=== PATIENT | female | born 1970 | race Caucasian/White ===

== ENCOUNTER 2019-12-27 09:46 | Emergency (ER) | payer MEDICAID ==
--- OUTSIDE RECORDS SUMMARY | 2019-12-27 09:49 | XMS REPORT | Summary of Care ---
:1970 Author Organization [facility] Address [address] [place] [id number] Care Team Providers Name Role Phone Ming Ward Primary Care Provider Reason for Visit Reason Comments Follow-up rash (Routine) Status Reason Specialty Diagnoses / Referred By Referred To Procedures Contact Contact Authorized Dermatology Diagnoses Disorder of the skin and subcutaneous tissue, unspecified Psoriasis, unspecified Dermatitis, unspecified Tinea corporis Ming Ward Procedures CONSULT/REFERRAL DERMATOLOGY C [address] [place] [address] Encounter Details Date Type Department Care Team Description 06/18/2019 Office Visit [facility] Irving Garza MD [address] [place] [address] [id number] [place] [address] Tinea corporis (Primary Dx); Dermatology- Tiff Joyner MD [address] [place] [address] [place] [id number] Psoriasis [place] Sarah Glynn MD [address] [place] [address] [address] [facility] [address] [facility], 5th [place] [address] Allergies Active Allergy Reactions Severity Noted Date Comments Hai Lee 09/18/2010 Morphine Hives 04/07/2007 documented as of this encounter (statuses as of 06/24/2019) Medications Medication Sig Dispensed Refills Start Date End Date Status SINGULAIR ORAL None Entered 0 Active PENTASA 500 MG ORAL None Entered 240 1 10/31/2009 Active CPSRIndications: Regional enteritis of small intestine with large intestine FLUoxetine (PROZAC) Take 60 mg by 0 Active 20 mg capsule mouth daily. topiramate (TOPAMAX) Take 50 mg by 0 Active 50 mg tablet mouth 2 (two) times daily. risperiDONE 1 mg TAKE 2 TABLETS BY 2 02/23/2017 Active tablet MOUTH AT BEDTIME MAY MAKE DROWSY HUMIRA PEN 40 mg/0.8 0 07/27/2017 Active mL injection amLODIPine 5 mg 0 07/08/2017 Active tablet atorvastatin 20 mg Take 20 mg by 1 07/10/2017 Active tablet mouth daily. albuterol (PROAIR Inhale 2 Puffs 18 g 1 12/07/2017 Active HFA) 90 mcg/actuation every 4 (four) inhalerIndications: hours as needed Mild asthma with for Wheezing or exacerbation, Shortness of unspecified whether Breath. persistent ketoconazole 2 % Apply to area(s) 120 mL 8 01/06/2018 Active shampoo once daily as needed for Itching. aspirin 81 mg EC Take 81 mg by 0 Active tablet mouth daily. BIOTIN ORAL Take by mouth. 0 Active Cholecalciferol, Take by mouth. 0 Active Vitamin D3, (VITAMIN D3) 2,000 unit tablet [id number] Take by mouth. 0 Active C ORAL fluticasone-vilantero Inhale. 0 Active l (BREO ELLIPTA) 100-25 mcg/dose DsDv gabapentin 100 mg Take 1 capsule by 90 capsule 1 06/05/2019 Active capsule mouth 3 (three) times daily. terbinafine HCl 250 Take 1 tablet by 14 tablet 0 06/18/2019 Active mg tabletIndications: mouth daily. 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 documented as of this encounter (statuses as of 06/24/2019) Resolved Problems Problem Noted Date Resolved Date Injury to nerves 06/06/2007 03/01/2019 Overview: IN ALL LIMBS ICD10 Diagnosis Term Tester [employer] Utility 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 documented as of this encounter Last Filed Vital Signs Not on filedocumented in this encounter Progress Notes Sarah Glynn MD - 06/18/2019 3:30 PM CDT Elizabeth Garcia is a 49 year old female Cc: Rash HPI Elizabeth Garcia is a 49 year old female who presents for evaluation on her trunk, groin, and lower extremities x days. Excruciatingly itchy. She has been using Nystatin/Triamcinolone ointment to the area which she had leftover from the past. It is not helping. Having trouble sleeping at night. Of note, has history of psoriasis and often uses various topical steroids as below prn flares. PMH: Crohn's disease (previously on Remicade and Humira) Histories Past Medical History: Diagnosis Date Bipolar 2 disorder Crohn disease (no) hx of skin cancer Allergies Allergies Allergen Reactions Codeine Hives Morphine Hives Medications Current Outpatient Medications on File Prior to Visit Medication Sig Dispense Refill gabapentin 100 mg capsule Take 1 capsule by mouth 3 (three) times daily. 90 capsule 1 aspirin 81 mg EC tablet Take 81 mg by mouth daily. BIOTIN ORAL Take by mouth. [id number] ORAL Take by mouth. Cholecalciferol, Vitamin D3, (VITAMIN D3) 2,000 unit tablet Take by mouth. fluticasone-vilanterol (BREO ELLIPTA) 100-25 mcg/dose DsDv Inhale. ketoconazole 2 % shampoo Apply to area(s) once daily as needed for Itching. 120 mL 8 albuterol (PROAIR HFA) 90 mcg/actuation inhaler Inhale 2 Puffs every 4 (four ) hours as needed for Wheezing or Shortness of Breath. 18 g 1 amLODIPine 5 mg tablet atorvastatin 20 mg tablet Take 20 mg by mouth daily. 1 HUMIRA PEN 40 mg/0.8 mL injection FLUoxetine (PROZAC) 20 mg capsule Take 60 mg by mouth daily. risperiDONE 1 mg tablet TAKE 2 TABLETS BY MOUTH AT BEDTIME MAY MAKE DROWSY 2 topiramate (TOPAMAX) 50 mg tablet Take 50 mg by mouth 2 (two) times daily. PENTASA 500 MG ORAL CPSR None Entered 240 1 SINGULAIR ORAL None Entered No current facility-administered medications on file prior to visit. Review of Systems Constitutional: (-) pain Integumentary: (+) itching (-) color change (-) growth (+) rash Hematologic/Lymphatic: (-) bleeding Physical Exam There were no vitals taken for this visit. General : No acute distress Psychiatric: Normal affect Pulmonary: Breathing unlabored CHEST: Positive ABDOMEN: Positive BACK: Positive RIGHT ARM: Negative LEFT ARM: Negative BUTTOCKS: Positive GENITALIA: Positive (-)=Negative,(+)=Positive Actinic Keratosis (A): erythematous scaling papules Jewell Hemaniogioma (CH): smooth red and purple papules Dermatitis Erythema (DE): mild to moderate erythema and scaling Dermatitis Lichenified (DL): lichenification and thickening Dermatitis Weeping (DW): weeping and excoriation Inflamed Seborrheic Keratosis (ISK): inflamed warty brown papules and plaques Millium (ML): Small white cystic papule Molluscum Contagiosum (MC): umbilicated papule Nevus Macular (NM): well circumscribed evenly pigmented macule Nevus Papular (RUG BACKING STENCILER): well circumscribed evenly pigmented papule Psoriasis Circumscribed (PC): well circumscribed erythema and scaling Psoriasis Diffuse (PD): diffuse patches of erythema and scaling Seborrheic Keratosis (SK): verrucous brown papules and plaques Scar (SR): cicatricial change Verruca Vulgarus (W): warty hyperkeratotic papule Assessment/Plan 1. Tinea Corporis - AGNES obtained, floridly positive - Stop all topical steroid medications including Nystatin/TAC ointment combo - Given extent of involvement, will treat orally - Start Terbinafine 250 mg daily po x 14 days - Start Lamisil cream (OTC) bid until resolved 2-3. Psoriasis - Etiology and treatment options discussed - Stop all topical medications until follow up or until #1 resolves RTC 6-8 weeks to recheck Sarah Glynn MD [facility] Dermatology, PGY-4 06/18/2019 documented in this encounter Plan of Treatment Date Type Specialty Care Team Description 07/30/2019 Office Visit Dermatology Sarah Glynn MD [address] [place] [phone] Health Maintenance Due Date Last Done Comments PNEUMOCOCCAL 0-64 YEARS COMBINED SERIES (1 of - 1977 PPSV23) DTaP,Tdap,and Td Vaccines (1 - Tdap) 1990 MAMMOGRAM 2011 INFLUENZA VACCINE 07/19/2019 PAP SMEAR Discontinued 05/26/2007 documented as of this encounter Results Not on filedocumented in this encounter Visit Diagnoses Diagnosis Tinea corporis - Primary Dermatophytosis of the body Psoriasis Other psoriasis documented in this encounter Insurance Payer Benefit Plan / Subscriber ID Effective Phone Address Type Group Dates [place] x[facility] [address] [facility]ALTHCARE - [facility] [id number] MANAGED MEDICAID [place], [place]ID [place] (Work) documented as of this encounter
--- OUTSIDE RECORDS SUMMARY | 2019-12-27 09:49 | XMS REPORT | Summary of Care ---
:1970 Author Organization [facility] Address [address] [place] [address] Care Team Providers Name Role Phone Ming Ward Primary Care Provider Reason for Visit Reason Comments Follow-up rash (Routine) Status Reason Specialty Diagnoses / Referred By Referred To Procedures Contact Contact Authorized Dermatology Diagnoses Disorder of the skin and subcutaneous tissue, unspecified Psoriasis, unspecified Dermatitis, unspecified Tinea corporis Ming Ward Procedures CONSULT/REFERRAL DERMATOLOGY C [address] [place] [address] Encounter Details Date Type Department Care Team Description 06/18/2019 Office Visit [facility] Irving Garza MD [address] [place] [address] [id number] [place] [address] Tinea corporis (Primary Dx); Dermatology- Tiff Joyner MD [address] [place] [address] [place] [phone] Psoriasis [place] Sarah Glynn MD [address] [place] [address]. [place] [address] [facility] [address] [facility], 5th [place] [address] Allergies Active Allergy Reactions Severity [...] Vitamin D3, (VITAMIN D3) 2,000 unit tablet [id number] Take by mouth. 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 BIOTIN ORAL Take by mouth. [id number]-[id number]-[id number] ORAL Take by mouth. Cholecalciferol, Vitamin D3, [...] well circumscribed evenly pigmented macule Nevus Papular (BULKING MACHINE OPERATOR): well circumscribed evenly pigmented papule Psoriasis Circumscribed [...] 6-8 weeks to recheck Sarah Glynn MD [facility] Dermatology, PGY-4 06/18/2019 documented in this encounter Plan of Treatment Date Type Specialty Care Team Description 07/30/2019 Office Visit Dermatology Sarah Glynn MD [address] [place] [address] Health Maintenance Due Date Last Done [...] Address Type Group Dates [place]UM[place] [facility] xxxxxxxxx [facility] [address] [facility]CARE - [facility] [id number] MANAGED MEDICAID [place], [place] (Work) documented as of this encounter
--- OUTSIDE RECORDS SUMMARY | 2019-12-27 09:49 | XMS REPORT | Summary of Care ---
:1970 Author Organization [facility] Address [address] [place] [address] Care Team Providers Name Role Phone Ming Ward Primary Care Provider Reason for Referral (Routine) Status Reason Specialty Diagnoses / Referred By Referred To Procedures Contact Contact New Request Rheumatology Diagnoses Other psoriasis Irving Garza, Procedures CONSULT/REFERRAL RHEUMATOLOGY [address] [address] Reason for Visit Reason Comments Follow-up 6-8 week f/u Encounter Details Date Type Department Care Team Description 07/09/2019 Office Visit [facility] Irving Garza MD [address] [address] Other psoriasis (Primary Dx); Dermatology- Sarah Glynn MD [address] [place] [address] Tinea corporis; [place] Other atopic dermatitis [facility] [address] [facility], 5th [place] [address] Allergies Active Allergy Reactions Severity Noted Date Comments Codeine Hives 09/18/2010 Morphine Hives 04/07/2007 documented as of this encounter (statuses as of 07/10/2019) Medications Medication Sig Dispensed Refills Start Date End Date Status SINGULAIR ORAL None Entered 0 Active PENTASA 500 MG ORAL None Entered 240 1 10/31/2009 Active CPSRIndications: Regional enteritis of small intestine with large intestine FLUoxetine (PROZAC) 20 Take 60 mg by 0 Active mg capsule mouth daily. topiramate (TOPAMAX) 50 Take 50 mg by 0 Active mg tablet mouth 2 (two) times daily. risperiDONE 1 mg tablet TAKE 2 TABLETS 2 02/23/2017 Active BY MOUTH AT BEDTIME MAY MAKE DROWSY HUMIRA PEN 40 mg/0.8 mL 0 07/27/2017 Active injection amLODIPine 5 mg tablet 0 07/08/2017 Active atorvastatin 20 mg Take 20 mg by 1 07/10/2017 Active tablet mouth daily. albuterol (PROAIR HFA) Inhale 2 Puffs 18 g 1 12/07/2017 Active 90 mcg/actuation every 4 (four) inhalerIndications: hours as needed Mild asthma with for Wheezing or exacerbation, Shortness of unspecified whether Breath. persistent ketoconazole 2 % Apply to 120 mL 8 01/06/2018 Active shampoo area(s) once daily as needed for Itching. aspirin 81 mg EC tablet Take 81 mg by 0 Active mouth daily. BIOTIN ORAL Take by mouth. 0 Active Cholecalciferol, Take by mouth. 0 Active Vitamin D3, (VITAMIN D3) 2,000 unit tablet [id number] Take by mouth. 0 Active ORAL fluticasone-vilanterol Inhale. 0 Active (BREO ELLIPTA) 100-25 mcg/dose DsDv gabapentin 100 mg Take 1 capsule 90 capsule 1 06/05/2019 Active capsule by mouth 3 (three) times daily. terbinafine HCl 250 mg Take 1 tablet by 14 tablet 0 06/18/2019 Active tabletIndications: mouth daily. Tinea corporis doxycycline 100 mg Take 1 tablet by 20 tablet 0 06/25/2019 Active tabletIndications: mouth 2 (two) Impetiginization of times daily. other dermatoses triamcinolone acetonide Apply to 454 g 1 06/25/2019 Active 0.1 % creamIndications: area(s) 2 (two) Other psoriasis times daily. 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 She was last seen 2 weeks ago. Noted to have a rash on her trunk that was flared and consistent with impetiginized eczema. Started on doxycycline 100 mg bid, domeboro soaks daily-BID, and triamcinolone cream BID. She has been doing this diligently and notes tremendous improvement. She is so happy with how she is doing and reports "she is much less stressed" and "more comfortable." Also of note, on 06/18/2019, she was noted to have tinea corporis on thighs and groin area , with underlying psoriasis that she was using topical steroids for. She has since completed treatment with 14 day course of po lamisil. For her psoriasis, she is just applying triamcinolone. Prefers this over Lidex (fluocinonide) cream. PMH: Crohn's disease (previously on Remicade and Humira) Histories Past Medical History: Diagnosis Date Bipolar 2 disorder Crohn disease (no) hx of skin cancer Allergies Allergies Allergen Reactions Codeine Hives Morphine Hives Medications Current Outpatient Medications on File Prior to Visit Medication Sig Dispense Refill doxycycline 100 mg tablet Take 1 tablet by mouth 2 (two) times daily. 20 tablet 0 triamcinolone acetonide 0.1 % cream Apply to area(s) 2 (two) times daily. 454 g 1 terbinafine HCl 250 mg tablet Take 1 tablet by mouth daily. 14 tablet 0 gabapentin 100 mg capsule Take 1 capsule by mouth 3 (three) times daily. 90 capsule 1 aspirin 81 mg EC tablet Take 81 mg by mouth daily. BIOTIN ORAL Take by mouth. [id number] ORAL Take by mouth. Cholecalciferol, Vitamin D3, [...] distress Psychiatric: Normal affect Pulmonary: Breathing unlabored ABDOMEN: Positive BACK: Negative RIGHT ARM: Negative LEFT ARM: Negative BUTTOCKS: [...] well circumscribed evenly pigmented macule Nevus Papular (POSTAL SORTING OFFICER): well circumscribed evenly pigmented papule Psoriasis Circumscribed (PC): well circumscribed erythema and scaling Psoriasis Diffuse (PD): diffuse patches of erythema and scaling Seborrheic Keratosis (SK): verrucous brown papules and plaques Scar (SR): cicatricial change Verruca Vulgarus (W): warty hyperkeratotic papule Assessment/Plan 1. Inverse Psoriasis 2. Atopic Dermatitis 3. Tinea corporis (resolved today) - S/p 14 days of oral lamisil and lamisil cream - Also s/p 10 day course of Doxycycline - much improved today! Pt is content - On exam today mostly inverse psoriasis under breasts and intergluteal cleft ( improved) and atopic derm on trunk (also improved) - Stop domeboro soaks - Continue triamcinolone cream BID to all affected areas (neck down) - Offer Lidex (fluocinonide) cream for body but patient prefer triamcinolone cream RTC 1 month to recheck then can f/u [id number] Sarah Glynn MD [facility], PGY-4 07/10/2019 documented in this encounter Plan of Treatment Date Type Specialty Care Team Description 07/30/2019 Office Visit Dermatology Sarah Glynn MD [address] [place] [address]. [place] [address] Health Maintenance Due Date Last Done Comments PNEUMOCOCCAL 0-64 YEARS COMBINED SERIES (1 of 1 - 1977 PPSV23) DTaP,Tdap,and Td Vaccines (1 - Tdap) 1990 MAMMOGRAM 2011 INFLUENZA VACCINE (#1) 2019 PAP SMEAR Discontinued 05/26/2007 documented as of this encounter Results Not on filedocumented in this encounter Visit Diagnoses Diagnosis Other psoriasis - Primary Tinea corporis Dermatophytosis of the body Other atopic dermatitis documented in this encounter Insurance Payer Benefit Plan / Subscriber ID Effective Phone Address Type Group Dates BRISSA BRUMFIELD xxxxxxxxx 2014-[employer] [place] Medicaid HEALTHCARE - [facility] [address] MANAGED MEDICAID [place], [place] [phone] [id number] (Work) documented as of this encounter
--- OUTSIDE RECORDS SUMMARY | 2019-12-27 09:49 | XMS REPORT | Summary of Care ---
:1970 Author Organization [facility] Address [address] [place] [address] Care Team Providers Name Role Phone Ming Ward Primary Care Provider Reason for Visit Reason Comments Assessment Encounter Details Date Type Department Care Team Description 06/25/2019 Telephone [facility] Dermatology- Sarah Glynn, Assessment Rafael ZEE [address] [place] [address], [address] [place], [place] [phone] Floor [phone] [place] [phone] Allergies Active Allergy Reactions Severity Noted Date Comments Codeine Hives 09/18/2010 Morphine Hives 04/07/2007 documented as of this encounter (statuses as of 06/25/2019) Medications Medication Sig Dispensed Refills Start Date [...] Vitamin D3, (VITAMIN D3) 2,000 unit tablet [id number] Take by mouth. 0 Active C ORAL fluticasone-vilantero Inhale. 0 Active l (BREO ELLIPTA) 100-25 mcg/dose DsDv gabapentin 100 mg Take 1 capsule by 90 capsule 1 06/05/2019 Active capsule mouth 3 (three) times daily. terbinafine HCl 250 Take 1 tablet by 14 tablet 0 06/18/2019 Active mg tabletIndications: mouth daily. 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 Mold Bonding Machine Operator Utility documented as of this encounter (statuses as of 06/25/2019) Resolved Problems Problem Noted Date Resolved Date Injury to nerves 06/06/2007 03/01/2019 Overview: IN ALL LIMBS ICD10 Diagnosis Term Shell Mold Bonding Machine Operator Utility 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 documented as of this encounter Last Filed Vital Signs Not on filedocumented in this encounter Plan of Treatment Date Type Specialty Care Team Description 06/25/2019 Nurse Visit Dermatology Visit, [facility] Dermatology Nurse 07/30/2019 Office Visit Dermatology Sarah Glynn MD [address] [place] [phone] Health Maintenance Due Date Last Done Comments PNEUMOCOCCAL 0-64 YEARS COMBINED SERIES (1 of 1 - 1977 PPSV23) DTaP,Tdap,and Td Vaccines (1 - Tdap) 1990 MAMMOGRAM 2011 INFLUENZA VACCINE 07/19/2019 PAP SMEAR Discontinued 05/26/2007 documented as of this encounter Results Not on filedocumented in this encounter Insurance Payer Benefit Plan / Subscriber ID Effective Phone Address Type Group Dates BRISSA BRUMFIELD xxxxxxxxx 2014-[employer] [place] Medicaid [place] [id number] MANAGED MEDICAID [place] documented as of this encounter
--- OUTSIDE RECORDS SUMMARY | 2019-12-27 09:49 | XMS REPORT ---
:1970 Author [facility] Address [address] [place] [address] Dr. Paige [address] [place] [address] Care Team Providers Name Role Phone Unavailable Unavailable Unavailable Problems This patient has no known problems. Allergies, Adverse Reactions, Alerts This patient has no known allergies or adverse reactions. Medications This patient has no known medications.
--- OUTSIDE RECORDS SUMMARY | 2019-12-27 09:49 | XMS REPORT | Summary of Care ---
:1970 Author Organization [facility] Address [address] [place] [address] Care Team Providers Name Role Phone Ming Ward Primary Care Provider Reason for Referral (Routine) Status Reason Specialty Diagnoses / Referred By Referred To Procedures Contact Contact New Request Rheumatology Diagnoses Other psoriasis Irving Garza, Procedures CONSULT/REFERRAL RHEUMATOLOGY [address] [address] Reason for Visit Reason Comments Follow-up 6-8 week f/u Encounter Details Date Type Department Care Team Description 07/09/2019 Office Visit [facility] Irving Garza MD [address] [address] Other psoriasis (Primary Dx); Dermatology- Sarah Glynn MD [address] [place] [address] Tinea corporis; [place] Other atopic dermatitis [facility] [address] [facility], 5th [place] [address] Allergies Active Allergy Reactions Severity [...] Vitamin D3, (VITAMIN D3) 2,000 unit tablet [id number] Take by mouth. 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 BIOTIN ORAL Take by mouth. [id number] ORAL Take by mouth. Cholecalciferol, Vitamin D3, [...] well circumscribed evenly pigmented macule Nevus Papular (PULPER): well circumscribed evenly pigmented papule Psoriasis Circumscribed [...] 1 month to recheck then can f/u [id number] Sarah Glynn MD [facility] [[email or web address] Dermatology, PGY-4 07/10/2019 documented in this encounter Plan of Treatment Date Type Specialty Care Team Description 07/30/2019 Office Visit Dermatology Sarah Glynn MD [address] [place] [address]. [place] [address] Health Maintenance Due Date Last [...] [place]UM[place] xxxxxxxxx 2014-Abimael WALLS Medicaid HEALTHCARE - [facility] [address] MANAGED MEDICAID [place], [place]ICAID [place] [phone] (Work) documented as of this encounter
--- OUTSIDE RECORDS SUMMARY | 2019-12-27 09:50 | XMS REPORT | Summary of Care ---
:1970 Author Organization [facility] - [facility] Address [address] [place] [address] Care Team Providers Name Role Phone Ming Ward Skip Primary Care Provider Reason for Visit Reason Comments Skin Problem Encounter Details Date Type Department Care Team Description 06/25/2019 [facility] [address] [place] [phone] Other psoriasis (Primary Dx); Dermatology- Sarah Glynn MD [address] [place] [address]. [place] [address] Impetiginization of other dermatoses; [place] Tinea corporis; [facility] Other atopic dermatitis [address] [facility], 5th [place] [address] Allergies Active Allergy Reactions Severity [...] Vitamin D3, (VITAMIN D3) 2,000 unit tablet [id number] Take by mouth. 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 Last seen one week ago. Patient has ahistory of inverse psoriasis and has been topical steroids in inguinal folds and inframammary folds for months. At her visit one week ago, she was noted to have flared with intense pruritus. AGNES was performed from inguinal area, floridly positive. Given extensive involvement and history of avid topical steroid use, she was treated with po lamisil daily x 14 days and lamisil cream daily. She was also asked to stop ALL topical steroids in light of diagnosis of tinea corporis. Today she presents and has a new rash on her trunk and extremities that is tremendously itchy. She reports she is miserable and having trouble sleeping. She is taking lamisil po as instructed, applying lamisil cream daily to affected areas, and has stopped all topical steroids. No other skin concerns today. PMH: Crohn's disease (previously on Remicade and Humira) Histories Past Medical History: Diagnosis Date Bipolar 2 disorder Crohn disease (no) hx of skin cancer Allergies Allergies Allergen Reactions Codeine Hives Morphine Hives Medications Current Outpatient Medications on File Prior to Visit Medication Sig Dispense Refill terbinafine HCl 250 mg tablet Take 1 tablet by mouth daily. 14 tablet 0 gabapentin 100 mg capsule Take 1 capsule by mouth 3 (three) times daily. 90 capsule 1 aspirin 81 mg EC tablet Take 81 mg by mouth daily. BIOTIN ORAL Take by mouth. [id number] ORAL Take by mouth. Cholecalciferol, Vitamin D3, [...] Pulmonary: Breathing unlabored CHEST: Positive ABDOMEN: Positive GENITALIA: Positive (-)=Negative,(+)=Positive Actinic Keratosis (A): [...] well circumscribed evenly pigmented macule Nevus Papular (GLASS CUTTER HAND): well circumscribed evenly pigmented papule Psoriasis Circumscribed (PC): well circumscribed erythema and scaling Psoriasis Diffuse (PD): diffuse patches of erythema and scaling Seborrheic Keratosis (SK): verrucous brown papules and plaques Scar (SR): cicatricial change Verruca Vulgarus (W): warty hyperkeratotic papule Assessment/Plan 1. Inverse Psoriasis (inguinal folds, intergluteal cleft, inframammary folds) 2. Secondary Impetiginized Atopic Dermatitis (trunk) 3. Tinea Corporis (inguinal folds, thighs) - S/p 7 days of oral lamisil and lamisil cream - Likely was secondarily infected on top of psoriasiswhen evaluated 1 week ago. Since stopping topical steroids last week in setting of tinea, psoriasis appears to be intensely flared today - Discussed etiology and treatment options - Start doxycycline 100 mg PO BID x 10 days, eRx sent. Discussed side effects of medication including GI upset, esophagitis, and photosensitivity. Instructed on use (take medication with food and plenty of water). Counseled patient about sunscreen/sun avoidance/sun protection - Start domeboro soaks BID until next visit to affected areas - hand out provided - Start triamcinolone cream BID to all affected areas (neck down), eRx sent - Continue lamisil tablets po once daily (7 additional days left in course) - Stop lamisil cream Patient seen and examined with Dr. Joyner, who agrees with the plan of care. RTC 1 week to recheck Sarah Glynn MD [facility] Dermatology, PGY-4 06/25/2019 documented in this encounter Plan of Treatment Date Type Specialty Care Team Description 07/30/2019 Office Visit Dermatology Sarah Glynn MD [address] [place] [address]. [place] [address] Health Maintenance Due Date Last Done Comments PNEUMOCOCCAL 0-64 YEARS COMBINED SERIES (1 of 1 - 1977 PPSV23) DTaP,Tdap,and Td Vaccines (1 - Tdap) 1990 MAMMOGRAM 2011 INFLUENZA VACCINE (#1) 2019 PAP SMEAR Discontinued 05/26/2007 documented as of this encounter Results Not on filedocumented in this encounter Visit Diagnoses Diagnosis Other psoriasis - Primary Impetiginization of other dermatoses Tinea corporis Dermatophytosis of the body Other atopic dermatitis documented in this encounter Insurance Payer Benefit Plan / Subscriber ID Effective Phone Address Type Group Dates BRISSA BRUMFIELD xxxxxxxxx 2014-Abimael WALLS Medicaid HEALTHCARE - [facility] [id number] MANAGED MEDICAID [place], [place] [phone] (Work) documented as of this encounter
--- OUTSIDE RECORDS SUMMARY | 2019-12-27 09:50 | XMS REPORT | Summary of Care ---
:1970 Author Organization [facility] Address [address] [place] [address] Care Team Providers Name Role Phone WardMing perez Skip Primary Care Provider Reason for Visit Reason Comments Refill Request Encounter Details Date Type Department Care Team Description 08/04/2019 Refill [facility] Addi Harris MD Refill Request Neurology-[address] [phone] [place] [address] [place] [address] [phone] Allergies Active Allergy Reactions Severity Noted Date Comments Codeine Hives 09/18/2010 Morphine Hives 04/07/2007 documented as of this encounter (statuses as of 08/05/2019) Medications Medication Sig Dispensed Refills Start Date [...] daily. risperiDONE 1 mg TAKE 2 TABLETS 2 02/23/2017 Active tablet BY MOUTH AT BEDTIME MAY MAKE DROWSY HUMIRA PEN 40 mg/0.8 0 07/27/2017 Active mL injection amLODIPine 5 mg 0 07/08/2017 Active tablet atorvastatin 20 mg Take 20 mg by 1 07/10/2017 Active tablet mouth daily. albuterol (PROAIR Inhale 2 Puffs 18 g 1 12/07/2017 Active HFA) 90 mcg/actuation every 4 (four) inhalerIndications: hours as Mild asthma with needed for exacerbation, Wheezing or unspecified whether Shortness of persistent Breath. ketoconazole 2 % Apply to 120 mL 8 01/06/2018 Active shampoo area(s) once daily as needed for Itching. aspirin 81 mg EC Take 81 mg by 0 Active tablet mouth daily. BIOTIN ORAL Take by 0 Active mouth. Cholecalciferol, Take by 0 Active Vitamin D3, (VITAMIN mouth. D3) 2,000 unit tablet [id number] Take by 0 Active C ORAL mouth. fluticasone-vilantero Inhale. 0 Active l (BREO ELLIPTA) 100-25 mcg/dose DsDv terbinafine HCl 250 Take 1 tablet 14 tablet 0 06/18/2019 Active mg tabletIndications: by mouth Tinea corporis daily. doxycycline 100 mg Take 1 tablet 20 tablet 0 06/25/2019 Active tabletIndications: by mouth 2 Impetiginization of (two) times other dermatoses daily. triamcinolone Apply to 454 g 1 06/25/2019 Active acetonide 0.1 % area(s) 2 creamIndications: (two) times Other psoriasis daily. gabapentin 100 mg Take 1 capsule 90 capsule 1 08/05/2019 Active capsule by mouth 3 (three) times daily. gabapentin 100 mg Take 1 capsule 90 capsule 1 06/05/2019 08/05/20 Discontinued capsule by mouth 3 19 (three) times daily. 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 05/08/20072018 Overview: Crohn's disease Depressive disorder 05/08/2007 03/01/2019 Overview: ICD10 Diagnosis Term [address] Light Repairer Utility documented as of this encounter (statuses as of 08/05/2019) Social History Tobacco Use Types Packs/Day Years [...] Treatment Date Type Specialty Care Team Description 08/18/2019 Office Visit Neurology Addi Harris MD [address] [place] [address] Health Maintenance Due Date Last Done Comments DTaP,Tdap,and Td Vaccines (1 - 1990 Tdap) MAMMOGRAM 2011 INFLUENZA VACCINE (#1) 2019 PAP SMEAR Discontinued 05/26/2007 PNEUMOCOCCAL 0-64 YEARS COMBINED Aged Out No longer eligible based on SERIES patient's age to complete this topic documented as of this encounter Results Not on filedocumented in this encounter Insurance Payer Benefit Plan / Subscriber ID Effective Phone Address Type Group Dates BRISSA BRUMFIELD xxxxxxxxx 2014-Abimael WALLS Medicaid HEALTHCARE - [facility] [place] [id number] MANAGED MEDICAID [place], [place] documented as of this encounter
--- OUTSIDE RECORDS SUMMARY | 2019-12-27 09:50 | XMS REPORT | Summary of Care ---
:1970 Author Organization [facility] Address [address] [place] [address] Care Team Providers Name Role Phone Ming Ward Skip Primary Care Provider Reason for Visit Reason Comments Skin Problem Encounter Details Date Type Department Care Team Description 06/[facility]/2019 [facility] [address] [place] [phone] Other psoriasis (Primary Dx); Dermatology- Sarah Glynn MD [address] [place] [address]. [place] [address] Impetiginization of other dermatoses; [place] Tinea corporis; [facility] Other atopic dermatitis [address] [facility], 5th [place] [address] Allergies Active Allergy Reactions Severity [...] Vitamin D3, (VITAMIN D3) 2,000 unit tablet [id number] Take by mouth. 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 BIOTIN ORAL Take by mouth. [id number] ORAL Take by mouth. Cholecalciferol, Vitamin D3, [...] well circumscribed evenly pigmented macule Nevus Papular (COUNTY COMMISSIONER): well circumscribed evenly pigmented papule Psoriasis Circumscribed [...] 1 week to recheck Sarah Glynn MD [facility] Dermatology, PGY-4 06/25/2019 documented in this encounter Plan of Treatment Date Type Specialty Care Team Description 07/30/2019 Office Visit Dermatology Sarah Glynn MD [address] [place] [address]. [place] [address] Health Maintenance Due Date Last [...] BRUMFIELD xxxxxxxxx 2014-Abimael WALLS Medicaid HEALTHCARE - [facility] [address] MANAGED MEDICAID [place], [place] [phone] (Work) documented as of this encounter
--- NOTE | 2019-12-27 10:21 | ER ---
Nurse's Notes [facility] Name: Elizabeth Garcia Age: 49 yrs Sex: Female : 1970 Arrival Date: 12/27/2019 Time: 09:49 Bed 16 Private MD: Diagnosis: Cellulitis of face;Cellulitis of chest wall;Other otitis externa, bilateral Presentation: 12/27 10:02 Presenting complaint: Patient states: facial swelling and burning that began yesterday ss morning. Pt reports she has seen a logistics engineering manager and is currently being treated for a rash to her chest x 1 week. Transition of care: patient was not received from another setting of care. Onset of symptoms was December 26, 2019. Risk Assessment: Do you want to hurt yourself or someone else? Patient reports no desire to harm self or others. Initial Sepsis Screen: Does the patient meet any 2 criteria? HR > 90 bpm. Does the patient have a suspected source of infection? No. Patient's initial sepsis screen is negative. Care prior to arrival: None. 10:02 Method Of Arrival: Ambulatory ss 10:02 Acuity: RAZA 4 ss Historical: - Allergies: 10:08 Codeine; ss 10:08 Morphine; ss - PMHx: 10:08 Hyperlipidemia; Hypertension; kidney problems; ss - PSHx: 10:08 Hysterectomy; Cholecystectomy; intestinal resection; ss - Immunization history:: Adult Immunizations up to date. - Coronavirus screen:: The patient has NOT traveled to [place], [place], or [place] in the past 14 days. - Social history:: Smoking status: Patient denies any tobacco usage or history of. - Ebola Screening: : Patient denies exposure to infectious person Patient denies travel to an Ebola-affected area in the 21 days before illness onset. Screenin:56 Abuse screen: Denies threats or abuse. Nutritional screening: No deficits noted. rb1 Tuberculosis screening: No symptoms or risk factors identified. Fall Risk None identified. Assessment: 09:56 General: Appears in no apparent distress. comfortable, Behavior is calm, cooperative. rb1 Pain: Complains of pain in face Pain currently is 6 out of 10 on a pain scale. Neuro: Level of Consciousness is awake, alert, obeys commands, Oriented to person, place, time, situation. Neuro:. Cardiovascular: Capillary refill < 3 seconds is brisk in bilateral fingers. Respiratory: Airway is patent Respiratory effort is even, unlabored, Respiratory pattern is regular, symmetrical. GI: No signs and/or symptoms were reported involving the gastrointestinal system. : No signs and/or symptoms were reported regarding the genitourinary system. EENT: Face and ears are red. Face has mild swelling. Derm: Rash noted that is red, on chest x 1 week. Vital Signs: 10:08 BP 125 / 76; Pulse 96; Resp 20; Temp 99.1(TE); Pulse Ox 98% on R/A; Weight 79.38 kg; ss Height 5 ft. 0 in. (152.40 cm); 10:08 Body Mass Index 34.18 (79.38 kg, 152.40 cm) ED Course: 09:49 Patient arrived in ED. as 09:56 Patient has correct armband on for positive identification. Bed in low position. Call rb1 light in reach. Side rails up X 1. Pulse ox on. NIBP on. 10:01 Sabra Cat FNP-C is [facility]. kb 10:01 Bernard Landis MD is Attending Physician. kb 10:06 Luanne Avelar, RN is Primary Nurse. rb1 10:07 Triage completed. ss 10:08 Arm band placed on right wrist. ss 10:37 No provider procedures requiring assistance completed. Patient did not have IV access rb1 during this emergency room visit. Administered Medications: 10:26 Drug: Bactrim (160 mg-800 mg (DS) 1 tablet Route: PO; bp 10:33 Follow up: Response: Medication administered at discharge. rb1 Outcome: 10:19 Discharge ordered by . kb 10:37 Discharged to home ambulatory, with family. rb1 10:37 Condition: stable 10:37 Discharge instructions given to patient, Instructed on discharge instructions, follow up and referral plans. medication usage, Demonstrated understanding of instructions, follow-up care, medications, Prescriptions given X 2. 10:38 Patient left the ED. rb1 Signatures: Sabra Cat FNP-C FNP-Ckb Martinez, Amelia as Smirch, Shelby, RN RN Luanne Avelar, YVONNE RN rb1 Kervin Alex RN RN bp
--- NOTE | 2019-12-27 10:21 | EDPHYS ---
Physician Documentation [facility] Name: Elizabeth Garcia Age: 49 yrs Sex: Female : 1970 Arrival Date: 12/27/2019 Time: 09:49 Bed 16 Private MD: ED Physician Bernard Landis HPI: 12/27 10:28 This 49 yrs old Female presents to ER via Ambulatory with complaints of kb Facial Swelling. 10:26 Pt reports she has been dealing with bad psoriasis for a few weeks. Has seen her adult basic education teacher for this and was prescribed a cream. Came in today because she woke up with swelling, burning and redness to left cheek yesterday, swelling, redness and burning to right cheek today. . 10:28 The patient's rash thought to be caused by an unknown cause. The rash is located on the kb left cheek and right cheek. The rash can be described as erythematous. Onset: The symptoms/episode began/occurred yesterday. Associated signs and symptoms: Pertinent positives: burning sensation, Pertinent negatives: difficulty breathing, fever, itching, nausea, Pain swelling of lips, swelling of throat, swelling of tongue, vomiting, wheezing. Severity of symptoms: At their worst the symptoms were moderate in the emergency department the symptoms are unchanged. Treatment given at home: Benadryl. The patient has experienced similar episodes in the past. The patient has not recently seen a physician. Historical: - Allergies: 10:08 Codeine; ss 10:08 Morphine; ss - PMHx: 10:08 Hyperlipidemia; Hypertension; kidney problems; ss - PSHx: 10:08 Hysterectomy; Cholecystectomy; intestinal resection; ss - Immunization history:: Adult Immunizations up to date. - Coronavirus screen:: The patient has NOT traveled to [place], [place], or [place] in the past 14 days. - Social history:: Smoking status: Patient denies any tobacco usage or history of. - Ebola Screening: : Patient denies exposure to infectious person Patient denies travel to an Ebola-affected area in the 21 days before illness onset. ROS: 10:20 Constitutional: Negative for fever, chills, and weight loss, Neck: Negative for injury, kb pain, and swelling, Cardiovascular: Negative for chest pain, palpitations, and edema, Respiratory: Negative for shortness of breath, cough, wheezing, and pleuritic chest pain, Abdomen/GI: Negative for abdominal pain, nausea, vomiting, diarrhea, and constipation, Back: Negative for injury and pain, MS/Extremity: Negative for injury and deformity, Neuro: Negative for headache, weakness, numbness, tingling, and seizure. 10:20 ENT: Positive for drainage from ear(s). 10:20 Skin: Positive for erythema, swelling, of the right cheek and left cheek. Exam: 10:21 Constitutional: This is a well developed, well nourished patient who is awake, alert, kb and in no acute distress. Head/Face: Normocephalic, atraumatic. Neck: Trachea midline, no thyromegaly or masses palpated, and no cervical lymphadenopathy. Supple, full range of motion without nuchal rigidity, or vertebral point tenderness. No Meningismus. Chest/axilla: Normal chest wall appearance and motion. Nontender with no deformity. No lesions are appreciated. Cardiovascular: Regular rate and rhythm with a normal S1 and S2. No gallops, murmurs, or rubs. Normal PMI, no JVD. No pulse deficits. Respiratory: Lungs have equal breath sounds bilaterally, clear to auscultation and percussion. No rales, rhonchi or wheezes noted. No increased work of breathing, no retractions or nasal flaring. Abdomen/GI: Soft, non-tender, with normal bowel sounds. No distension or tympany. No guarding or rebound. No evidence of tenderness throughout. MS/ Extremity: Pulses equal, no cyanosis. Neurovascular intact. Full, normal range of motion. Neuro: Awake and alert, GCS 15, oriented to person, place, time, and situation. Cranial nerves II-XII grossly intact. Motor strength 5/5 in all extremities. Sensory grossly intact. Cerebellar exam normal. Normal gait. 10:21 ENT: External ear(s): erythema, that is severe, bilaterally, Ear canal(s): erythema, that is severe, bilaterally, purulent discharge, that is moderate, bilaterally, swelling, Marked erythema with swelling and drainage to bilateral ear canals., TM's: are normal, Nose: is normal, Mouth: is normal, Posterior pharynx: is normal. 10:21 Skin: cellulitis, that is mild, that is moderate, bilateral cheeks and under bilateral breasts secondary to psoriasis . Vital Signs: 10:08 BP 125 / 76; Pulse 96; Resp 20; Temp 99.1(TE); Pulse Ox 98% on R/A; Weight 79.38 kg; ss Height 5 ft. 0 in. (152.40 cm); 10:08 Body Mass Index 34.18 (79.38 kg, 152.40 cm) ss MDM: 10:01 Patient medically screened. kb 10:20 Data reviewed: vital signs, nurses notes. Data interpreted: Pulse oximetry: on room air kb is 98 %. Interpretation: normal. Counseling: I had a detailed discussion with the patient and/or guardian regarding: the historical points, exam findings, and any diagnostic results supporting the discharge/admit diagnosis, the need for outpatient follow up, a adult basic education teacher, a family practitioner, to return to the emergency department if symptoms worsen or persist or if there are any questions or concerns that arise at home. 10:23 ED course: Cheeks moderately erythematous with warmth and swelling. External ears kb markedly erythematous with skin peeling. Skin under breasts markedly erythematous. Bactrim given for cellulitis secondary to open skin related to psoriasis. Swelling, redness and drainage noted to bilateral ear canals, will treat with ciprodex. Pt educated to follow up with derm for re-evaluation . Administered Medications: 10:26 Drug: Bactrim (160 mg-800 mg (DS) 1 tablet Route: PO; bp 10:33 Follow up: Response: Medication administered at discharge. rb1 Disposition: 11:08 Co-signature as Attending Physician, Bernard Landis MD. rn Disposition: 12/27/19 10:19 Discharged to Home. Impression: Cellulitis of face, Cellulitis of chest wall, Other otitis externa, bilateral. - Condition is Stable. - Discharge Instructions: Otitis Externa, [id number], Cellulitis, Adult, [id number]. - Prescriptions for Bactrim DS 800- 160 mg Oral Tablet - take 1 tablet by ORAL route every 12 hours for 7 days; 14 tablet. Ciprodex 0.3- 0.1 % Otic Drops, Suspension - instill 4 drop by OTIC route every 12 hours for 7 days , for ears ONLY; 1 Container. - Medication Reconciliation Form, Thank You Letter, Antibiotic Education, Prescription Opioid Use form. - Follow up: Emergency Department; When: As needed; Reason: Worsening of condition. Follow up: Private Physician; When: 2 - 3 days; Reason: Recheck today's complaints, Continuance of care, Re-evaluation by your physician. Signatures: Sabra Cat FNP-C FNP-Bernard Bello MD MD rn Ashia Mendez RN RN ss Luanne Avelar, RN RN rb1 Kervin Alex RN RN bp Corrections: (The following items were deleted from the chart) 10:28 10:23 ED course: Pt reports she has been dealing with bad psoriasis for a few weeks. kb Has seen her adult basic education teacher for this and was prescribed a cream. Came in today because she woke up with swelling, burning and redness to left cheek yesterday, swelling, redness and burning to right cheek today. . kb 10:38 10:19 12/27/2019 10:19 Discharged to Home. Impression: Cellulitis of face; Cellulitis rb1 of chest wall; Other otitis externa, bilateral. Condition is Stable. Forms are Medication Reconciliation Form, Thank You Letter, Antibiotic Education, Prescription Opioid Use. Follow up: Emergency Department; When: As needed; Reason: Worsening of condition. Follow up: Private Physician; When: 2 - 3 days; Reason: Recheck today's complaints, Continuance of care, Re-evaluation by your physician. kb
[2019-12-27] MEDS ORDERED: SMZ./TMP. 800/160 MG TABLET ONE (10:28)
[2019-12-27 10:55] VITALS: BP 125/76; TEMP 99.1; O2SAT 98
== END 2019-12-27 10:38 | disposition home or self-care (01) ==
LOC: ER 09:46
DX: L03.211 Cellulitis of face (principal); L03.313 Cellulitis of chest wall; H60.8X3 Other otitis externa, bilateral; Z88.6 Allergy status to analgesic agent
CPT/HCPCS: 99283

== ENCOUNTER → 2020-02-01 | Day surgery (SDC) | payer MEDICAID ==
--- NOTE | 2020-01-27 15:15 | EKG ---
Test Date: 2020-01-27 Test Time: 13:42:26 Manager Professional Development: [place] MEASUREMENT RESULTS: Intervals: Rate: 50 MO: 134 QRSD: 76 QT: 462 QTc: 421 [place]: P: 53 MO: 134 QRS: 26 T: 17 INTERPRETIVE STATEMENTS: Sinus bradycardia Otherwise normal ECG Compared to ECG 07/16/2017 17:57:57 No significant changes Electronically Signed On 01-27-20 15:14:49 CDT by Harshad Van
--- NOTE | 2020-01-27 15:15 | RAD REPORT ---
EXAM DESCRIPTION: Karlo Meza (2 Views)01/27/2020 3:07 pm CLINICAL HISTORY: Preop COMPARISON: 2017 FINDINGS: The lungs appear clear of acute infiltrate. The heart is borderline enlarged IMPRESSION: No acute abnormalities displayed
[2020-01-27 15:27] LABS: Absolute Lymphocytes (CBC) 3.2 K/uL (0.7-4.9); Basophils % 1.3 % (0-1.3); Hematocrit 36.4 % (36.0-45.0); Lymphocytes % 33.4 % (15.3-44.8); MPV 7.5 fL (7.6-11.3); RBC Red Blood Cell Count 4.48 M/uL (3.86-4.86)
[2020-01-27 15:40] LABS: Potassium 3.9 mmol/L (3.5-5.1)
[~2020-02-01] MED LIST: CEFAZOLIN/SWI 1gm 1 GM/10 ML SYR ONE; FENTANYL CITR 100 MCG/2 ML ONE; KETOROLAC 30 MG/ML INJ ONE; LIDOCAINE 2% MPF 5 ML VIAL ONE; MIDAZOLAM HCL 2 MG/2 ML INJ ONE; NS 0.9% VIAL 20 ML ONE; ONDANSETRON 4 MG/2 ML VIAL ONE; Ringers Lactate 1,000 ML IV ONE; dexAMETHasone 10 MG/ML VIAL ONE; propofoL 200 MG/20 ML VIAL IV ONE
--- OUTSIDE RECORDS SUMMARY | 2020-02-01 07:49 | XMS REPORT ---
:1970 Author [facility] Address [address] [place] [address] Dr. Paige [address] [place] [id number] Care Team Providers Name Role Phone Unavailable Unavailable Unavailable Problems This patient has no known problems. Allergies, Adverse Reactions, Alerts This patient has no known allergies or adverse reactions. Medications This patient has no known medications.
--- OUTSIDE RECORDS SUMMARY | 2020-02-01 07:53 | XMS REPORT | Summary of Care ---
:1970 Author Organization [facility] Address [address] [place] [id number] Care Team Providers Name Role Phone WardMing Primary Care Provider Reason for Visit Reason Comments Follow-up 2 week Encounter Details Date Type Department Care Team Description 01/13/2020 Office Visit [facility] Pastor Arias MD [address] [place] [phone] Otitis externa of both ears, unspecified chronicity, unspecified type (Primary Dx); Dermatology- Milan Elizalde MD [address] [place] [address]. [place] [phone] Other psoriasis; [facility] [address] [facility], [address] [place] [address] Allergies Active Allergy Reactions Severity Noted Date Comments Codeine Hives 09/18/2010 Morphine Hives 04/07/2007 documented as of this encounter (statuses as of 01/13/2020) Medications Medication Sig Dispensed Refills Start Date End Date Status SINGULAIR ORAL None Entered 0 Active PENTASA 500 MG ORAL None Entered 240 1 10/31/2009 Active CPSRIndications: Regional enteritis of small intestine with large intestine FLUoxetine (PROZAC) 20 Take 60 mg by 0 Active mg capsule mouth daily. topiramate (TOPAMAX) Take 50 mg by 0 Active 50 mg tablet mouth 2 (two) times daily. risperiDONE 1 mg TAKE 2 TABLETS BY 2 02/23/2017 Active tablet MOUTH AT BEDTIME MAY MAKE DROWSY HUMIRA PEN 40 mg/0.8 0 07/27/2017 Active mL injection amLODIPine 5 mg tablet 0 07/08/2017 [...] Vitamin D3, (VITAMIN D3) 2,000 unit tablet [id number] Take by mouth. 0 Active ORAL fluticasone-vilanterol Inhale. 0 Active (BREO ELLIPTA) 100-25 mcg/dose DsDv terbinafine HCl 250 mg Take 1 tablet by 14 tablet 0 06/18/2019 Active tabletIndications: mouth daily. Tinea corporis triamcinolone Apply to area(s) 454 g 1 06/25/2019 Active acetonide 0.1 % 2 (two) times creamIndications: daily. Other psoriasis gabapentin 100 mg Take 1 capsule by 90 capsule 11 08/18/2019 Active capsuleIndications: mouth 3 (three) Neuropathy times daily. buPROPion XL 300 mg 24 0 08/10/2019 Active hr tablet hydrOXYzine 25 mg TAKE 1 TABLET BY 0 06/03/2019 Active tablet MOUTH EVERY 8 HOURS NEEDED MAY MAKE DROWSY hydrOXYzine 25 mg 0 08/13/2019 Active capsule hydrOXYzine 50 mg 0 08/08/2019 Active capsule COMBIVENT RESPIMAT 0 08/13/2019 Active 20-100 mcg/actuation inhaler nystatin-triamcinolone 0 06/02/2019 Active ointment polymyxin B PUT 1 DROP INTO 0 07/28/2019 Active sulf-trimethoprim AFFECTED EYE 4 10,000 unit- 1 mg/mL TIMES DAILY FOR 5 ophthalmic drops DAYS sulfamethoxazole-trime TAKE 1 TABLET BY 0 07/28/2019 Active thoprim 800-160 mg per MOUTH 2 TIMES tablet DAILY WITH A GLASS OF WATER UNTIL ALL TAKEN fluocinonide 0.05 % Apply to area(s) 15 g 0 11/15/2019 Active ointmentIndications: 2 (two) times Psoriasis daily. triamcinolone Apply to area(s) 454 g 5 12/30/2019 Active acetonide 0.1 % 2 (two) times ointmentIndications: daily. Rash and other nonspecific skin eruption Clobetasol Propionate Apply to area(s) 118 mL 3 12/30/2019 Active 0.05 % 2 (two) times shampooIndications: daily. Rash and other nonspecific skin eruption Fluocinolone Acetonide Place 1 Drop in 20 mL 5 12/30/2019 Active Oil (DERMOTIC OIL) each ear 2 (two) 0.01 % otic times daily. dropsIndications: Rash and other nonspecific skin eruption ciprofloxacin-dexameth Place 2 Drops in 7.5 mL 2 01/13/2020 Active asone 0.3-0.1 % otic both ears 2 (two) dropsIndications: times daily. Otitis externa of both ears, unspecified chronicity, unspecified type documented as of this encounter (statuses as of 01/13/2020) Active Problems Problem Noted Date Pain in joint, multiple sites 09/24/2019 Chronic midline low back pain without sciatica 09/24/2019 History of Crohn's disease 09/24/2019 Long-term use of high-risk medication 09/24/2019 Crohn's disease with complication 03/01/2019 Psoriasis 03/01/2019 Bipolar affective 03/01/2019 Mitral valve disorder 06/06/2007 Overview: ICD10 Diagnosis Term Sausage Grinder Utility Asthma 05/08/2007 Overview: ICD10 Diagnosis Term Sausage Grinder Utility documented as of this encounter (statuses as of 01/13/2020) Resolved Problems Problem Noted Date Resolved Date Injury to nerves 06/06/2007 03/01/2019 Overview: IN ALL LIMBS ICD10 Diagnosis Term Sausage Grinder Utility 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 05/08/20072018 Overview: Crohn's disease Depressive disorder 05/08/2007 03/01/2019 Overview: ICD10 Diagnosis Term Sausage Grinder Utility documented as of this encounter (statuses as of 01/13/2020) Social History Tobacco Use Types Packs/Day Years [...] on filedocumented in this encounter Progress Notes Milan Elizalde MD - 01/13/2020 10:10 AM CST Elizabeth Garcia is a 49 year old female Cc: rash r/u HPI Elizabeth Garcia is a 49 year old female with a history of Chron's dz who presents today for follow up of rash on her scalp, groin, back, and groin, present for about 5 years that is sometimes itchy and tender. Of note, she has a history of Chron's dz and has been on Humira for about 5 years. She reports, her rash started shortly after starting Humira. Prior to Humira, she was on Remicade and was doing well without and rash. At she was started on clobetasol shampoo, Triamcinolone 0.15 ointment, and Derm-oitc drops Today, she has greatly improved, on trunk, extremities, and face. Rash on scalp has some improvement, but continues to persist. Histories Past Medical History: Diagnosis Date Bipolar 2 disorder Crohn disease Neuropathy Psoriasis PMH: Crohn's disease (previously on Remicade and well controlled); (-) hx of skin cancer FH: father with psoriasis; (-) family hx of skin cancer Social history: lives in [place] Allergies Allergies Allergen Reactions Codeine Hives Morphine Hives Medications Current Outpatient Medications on File Prior to Visit Medication Sig Dispense Refill Clobetasol Propionate 0.05 % shampoo Apply to area(s) 2 (two) times daily. 118 mL 3 Fluocinolone Acetonide Oil (DERMOTIC OIL) 0.01 % otic drops Place 1 Drop in each ear 2 (two) times daily. 20 mL 5 triamcinolone acetonide 0.1 % ointment Apply to area(s) 2 (two) times daily. 454 g 5 fluocinonide 0.05 % ointment Apply to area(s) 2 (two) times daily. 15 g 0 buPROPion XL 300 mg 24 hr tablet COMBIVENT RESPIMAT 20-100 mcg/actuation inhaler gabapentin 100 mg capsule Take 1 capsule by mouth 3 (three) times daily. 90 capsule 11 hydrOXYzine 25 mg capsule hydrOXYzine 25 mg tablet TAKE 1 TABLET BY MOUTH EVERY 8 HOURS NEEDED MAY MAKE DROWSY 0 hydrOXYzine 50 mg capsule nystatin-triamcinolone ointment polymyxin B sulf-trimethoprim 10,000 unit- 1 mg/mL ophthalmic drops PUT 1 DROP INTO AFFECTED EYE4 TIMES DAILY FOR 5 DAYS 0 sulfamethoxazole-trimethoprim 800-160 mg per tablet TAKE 1 TABLET BY MOUTH 2 TIMES DAILY WITH A GLASS OF WATER UNTIL ALL TAKEN 0 triamcinolone acetonide 0.1 % cream Apply to area(s) 2 (two) times daily. 454 g 1 terbinafine HCl 250 mg tablet Take 1 tablet by mouth daily. 14 tablet 0 aspirin 81 mg EC tablet Take 81 mg by mouth daily. BIOTIN ORAL Take by mouth. [id number] ORAL Take by mouth. Cholecalciferol, Vitamin D3, [...] prior to visit. Review of Systems Constitutional: Pain (+) Skin: Itching (+), Rash (+), Growth (-), Color change (-) Heme: Bleeding (-) Physical Exam There were no vitals taken for this visit. General : No acute distress, awake, well developed, well nourished Psychiatric: Normal affect, mood, judgement, and thought content Neuro: Alert, oriented to person, place, situation FACE: Positive SCALP: Positive NECK: Negative CHEST: Positive ABDOMEN: Positive BACK: Positive RIGHT ARM: See image LEFT ARM: Positive (-)=Negative,(+)=Positive Actinic Keratosis (A): erythematous scaling [...] well circumscribed evenly pigmented macule Nevus Papular (ORACLE WMS CONSULTANT): well circumscribed evenly pigmented papule Psoriasis Circumscribed (PC): well circumscribed erythema and scaling Psoriasis Diffuse (PD): diffuse patches of erythema and scaling Seborrheic Keratosis (SK): verrucous brown papules and plaques Scar (SR): cicatricial change Verruca Vulgarus (W): warty hyperkeratotic papule Assessment/Plan 1. 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 Humira induced psoriasiform eruption vs psoriasis 3. Otitis externa - Much improved today - Given temporal relationship with starting Humira, highly suspect paradoxical TNF-katey induced psoriasiform eruption - Recommend discontinuing Humira and considering alternative agent, such as Stelara, Remicade or Enbrel as these have proven efficacy in both Chron's and psoriasis. - Patient has seen GI since [place] with plans to stop Humira and restart Remicade within the next few weeks - Continue biologic management per private GI (Dr. Levi Tran- [phone]) - Continue Clobetasol shampoo QD - ContinueTriamcinolone ointment BID to rash on trunk, extremities and face. Continue wet wraps BID; - Continue Ciprodex drops BID RTC 1 month I, Tk Ortiz am scribing for, and in the presence of, Dr. Milan Elizalde MD who performed and/orordered the services described here-in. Tk Ortiz 01/13/2020 11:04 I, Dr. Milan Elizalde, personally performed and/or ordered the services described in this documentation, as scribed above by Tk Ortiz in my presence , and it is both accurate and complete. Milan Elizalde MD 01/13/2020 2:57 PM documented in this encounter Plan of Treatment Date Type Specialty Care Team Description 02/10/2020 Office Visit Dermatology Milan Elizalde MD [address] [place] [phone] 08/19/2020 Office Visit Neurology Addi Harris MD [address] [place] [phone] Health Maintenance Due Date Last Done Comments PNEUMOCOCCAL 0-64 YEARS COMBINED SERIES (1 of - 1977 PPSV23) DTaP,Tdap,and Td Vaccines (1 - Tdap) 1982 Breast Cancer Screening (MAMMOGRAM) 2011 PAP SMEAR Discontinued 05/26/2007 INFLUENZA VACCINE Completed 09/17/2019 documented as of this encounter Results Not on filedocumented in this encounter Visit Diagnoses Diagnosis Otitis externa of both ears, unspecified chronicity, unspecified type - Primary Other psoriasis Alopecia Alopecia, unspecified documented in this encounter Insurance Payer Benefit Plan / Subscriber ID Effective Phone Address Type Group Dates BRISSA [place] xxxxxxxxx [id number]-[address] [place] [id number] MANAGED MEDICAID [place], [place] (Work) documented as of this encounter
--- OUTSIDE RECORDS SUMMARY | 2020-02-01 07:53 | XMS REPORT | Summary of Care ---
:1970 Author Organization [facility] Address [address] [place] [id number] Care Team Providers Name Role Phone WardMing Primary Care Provider Reason for Visit Reason Comments Follow-up 2 week Encounter Details Date Type Department Care Team Description 01/13/2020 Office Visit [facility] Pastor Arias MD [address] [place] [phone] Otitis externa of both ears, unspecified chronicity, unspecified type (Primary Dx); Dermatology- Milan Elizalde MD [address] [place] [address]. [place] [phone] Other psoriasis; [facility] [address] [facility] [place] [phone] Allergies Active Allergy Reactions Severity [...] Vitamin D3, (VITAMIN D3) 2,000 unit tablet [id number] Take by mouth. 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 BIOTIN ORAL Take by mouth. [id number] ORAL Take by mouth. Cholecalciferol, Vitamin D3, [...] well circumscribed evenly pigmented macule Nevus Papular (QUALITY ASSURANCE PROJECT MANAGER): well circumscribed evenly pigmented papule Psoriasis Circumscribed [...] management per private GI (Dr. Levi Tran- [phone]) - Continue Clobetasol shampoo QD - ContinueTriamcinolone [...] 02/10/2020 Office Visit Dermatology Milan Elizalde MD [address] [place] [phone] 08/19/2020 Office Visit Neurology Addi Harris MD [address] [place] [phone] Health Maintenance Due Date Last Done [...] O BOX [place] [id number] MANAGED MEDICAID [place] (Work) documented as of this encounter
[2020-02-01] MEDS: HEPARIN 5000 UNIT/ML 1 ML VIAL ONE ×2 (09:07→10:18)
--- NOTE | 2020-02-01 10:43 | P.BOP ---
Preoperative diagnosis: autoimmune disease, crohns disease, Need for IV access Postoperative diagnosis: same Primary procedure: 1. Placement of new Left subclavian portacath Secondary procedure: 2. Removal non functional Right subclavian portacath Other procedure(s): 3. Interpretation of fluoroscopy Estimated blood loss: <10cc Specimen: intact old portacath Findings: as above Anesthesia: General Transferred to: Recovery Room Condition: Good
--- NOTE | 2020-02-01 11:07 | RAD REPORT ---
EXAM DESCRIPTION: RAD - Chest Single View - 02/01/2020 11:02 am CLINICAL HISTORY: s/p port a cath Chest pain. COMPARISON: Chest Pa And Lat (2 Views) dated 01/27/2020; Chest Single View dated 07/16/2017; Chest Pa And Lat (2 Views) dated 01/24/2017; Chest Pa And Lat (2 Views) dated 05/01/2016 FINDINGS: Portable technique limits examination quality. Left-sided venous catheter has placed with its tip in the SVC. No postprocedure pneumothorax seen. Th e heart is mildly prominent size. No displaced fractures. IMPRESSION: No postprocedure pneumothorax.
[2020-02-01 12:40] VITALS: BP 113/93; TEMP 97.1; O2SAT 96
--- NOTE | 2020-02-01 22:03 | OP ---
Date of Procedure: 02/01/2020 Surgeon: Alec Peraza MD Preoperative Diagnoses: Autoimmune disease, Crohn disease, and need for IV access. No good peripher al IV access. Postoperative Diagnoses: Autoimmune disease, Crohn disease, and need for IV access. No good periphe ral IV access. Procedure: 1.Placement of a new left subclavian Port-A-Cath. 2.Removal of nonfunctional right subclavian Port-A-Cath. 3.Interpretation of fluoroscopy. Specimen: Intact Port-A-Cath. Anesthesia: General plus local. Indications: This is the case of a female in need of IV medication for her autoimmune disease. She has a Port-A-Cath in the past that she was using, but the IV medication was not given to her since sh e was being controlled some other way. Recently, the primary doctor have to bring her back to IV med ication therapy for autoimmune disease. The Port-A-Cath was nonfunctional and she wants that old Por t-A-Cath removed and a new Port-A-Cath placed in. Paper access on her is almost impossible. Even th morning, they spent more than an hour just trying to get the small vein on her. So, we understand her situation. So, we explained the benefits, alternatives, and risks of removal of Port-A-Cath and placement of a new Port-A-Cath which include, but not limited to infection, bleeding, damage to ceferino cent structures, anesthesia complication, pneumothorax, hemothorax, pulmonary emboli, deep vein throm bosis, pericarditis, breaking of the catheter, ME, even . She also understands this may not rel ieve her symptoms. She might need more than one surgical intervention. She understands the importan ce of flushing this Port-A-Cath every 30 days. She was advised to discuss that with the primary doct or since she follow with them or the one who is giving the IV therapy that is done less than a month. Contact the home health agency for flushing every month. She understood the importance of that. S he signed a consent. She also understands the risk for pneumothorax. Description Of Procedure: Patient was brought to the operating room, placed in supine position. Ane sthesia was done without complication. The chest area bilaterally and neck area were prepped and jone ped in a sterile fashion. Local anesthesia was applied for anesthetic. The patient was placed in Tr endelenburg position. After time-out was called, then the local anesthetic was applied. An 18-gauge needle was placed in the left subclavian vein at the first attempt. A guidewire was guided into the superior vena cavity using fluoroscopy as guidance. Needle was removed. A small incision was made in the left upper chest to lodge the new Port-A-Cath. At that moment, through the guidewire, we put the introducer catheter under direct visualization. Guidewire was removed and the catheter was place d into the superior vena cava. The introducer catheter was peeled off. We have this clamped at all time to avoid any emboli. So, we tunneled this catheter underneath the skin to meet the new incision in the left upper chest and cut at the proper size using fluoroscopy guidance. Connected to the Por t-A-Cath using the venetian blind cleaner and repairer's specifications and then sutured the Port-A-Cath to the subcutaneous tissue. Excellent backflow and inflow. The subcutaneous tissue was closed with 3-0 chromic and the skin in subcuticular fashion with 3-0 chromic and Steri-Strips on top. Sponge count and instrument counts were correct. At that moment, we went to the opposite side. We made an incision in the right upper chest and find the old Port-A-Cath and remove that from the subcutaneous tissue, and then pull ed it gently to make sure the catheter was completely out. We have fluoroscopy guidance to remove it properly. The area was prepped for about 15 minutes at the insertion site and then we closed the mckenzie bcutaneous tissue with 3-0 chromic and the skin with 3-0 chromic and Steri-Strips on top. The patien t was brought back to normal position. Patient tolerated the procedure well. Patient was sent to [facility] in stable condition. Pending chest x-ray. MARCIE/BLANCA Voice ID: [id number] Report ID: [id number]
--- NOTE | 2020-02-01 22:04 | DS ---
Diagnoses: Autoimmune disease, Crohn disease, and need for IV access. Malfunctioning of all Port-A- Cath. Procedure: Placement of a new left subclavian Port-A-Cath. Removal of an old nonfunctional right Po rt-A-Cath and interpretation of fluoroscopy. Disposition: Home. Activity: As tolerated. No heavy lifting. Followup: Follow up in my office in 1 week. Call for appointment at [phone]. The patient will be discharged after the chest x-rays are reviewed postprocedure. Patient advised to contact her the [facility] doctor to schedule proper initiation of her IV therapy. MARCIE/BLANCA Voice ID: [id number] Report ID: [id number]
== END | disposition home or self-care (01) ==
LOC: OR 07:47
PROVIDERS: ATTEND Surgery
PROC: 02HV33Z Insertion of Infusion Device into Superior Vena Cava, Percutaneous Approach (ICD-10-PCS; principal; 2020-02-01 09:45)
PROC: 0JPT3WZ Removal of Totally Implantable Vascular Access Device from Trunk Subcutaneous Tissue and Fascia, Percutaneous Approach (ICD-10-PCS; 2020-02-01 09:45)
DX: K50.90 Crohn's disease, unspecified, without complications (principal); E78.1 Pure hyperglyceridemia; F31.9 Bipolar disorder, unspecified; I10 Essential (primary) hypertension; J45.909 Unspecified asthma, uncomplicated; Z79.899 Other long term (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 therapy
CPT/HCPCS: 36415; 71045; 71046; 76000; 80048; 85025; 88300; 93005; C1788; J0690; J1100; J1644; J2250; J2405; J2704; J3010; J7120

== ENCOUNTER 2020-04-01 10:30 | Day surgery (SDC) | payer MEDICAID ==
[~2020-04-01 10:30] MED LIST changes: -CEFAZOLIN/SWI 1gm 1 GM/10 ML SYR ONE; -FENTANYL CITR 100 MCG/2 ML ONE; +HEPARIN 500 UNIT/5 ML SYR IV ONE; -KETOROLAC 30 MG/ML INJ ONE; -LIDOCAINE 2% MPF 5 ML VIAL ONE; -MIDAZOLAM HCL 2 MG/2 ML INJ ONE; -NS 0.9% VIAL 20 ML ONE; -ONDANSETRON 4 MG/2 ML VIAL ONE; -Ringers Lactate 1,000 ML IV ONE; -dexAMETHasone 10 MG/ML VIAL ONE; -propofoL 200 MG/20 ML VIAL IV ONE
[2020-04-01] MEDS ORDERED: INFLIXIMAB-DYYB 400 MG in NA CHLORIDE 0.9% 210 ML IV ONE (11:00)
--- OUTSIDE RECORDS SUMMARY | 2020-04-01 11:46 | XMS REPORT ---
:1970 Author Organization [facility] t Address [address] [place] [address] [address]. [address] [place] [address] Care Team Providers Name Role Phone Tonio ZEE Attending Clinician Problems This patient has no known problems. Allergies, Adverse Reactions, Alerts This patient has no known allergies or adverse reactions. Medications This patient has no known medications. Procedures This patient has no known procedures. Encounters Start End Encounter Admission Attending Care Care Encounter Source Date/Time Date/Time Type Type Clinicians Facility Department ID 2020-03-18 2020-03-23 [facility] FABIANA Elizalde [id number] 09:38:05 17:09:[address] [facility] [id number] [facility] [id number] Results This patient has no known results.
--- OUTSIDE RECORDS SUMMARY | 2020-04-01 11:52 | XMS REPORT | Summary of Care ---
:1970 Author Organization [facility] Address [address] [place] [address] Care Team Providers Name Role Phone WardSkip Primary Care Provider Reason for Visit Reason Comments Appointment Telehealth photo upload Encounter Details Date Type Department Care Team Description 02/22/2020 Telephone [facility] Milan Elizalde MD Appointment Dermatology- [address] [place] [address] [address] (Telehealth photo [place], [place] upload) [facility] [id number] [place] [address] Drive, [address] [place] [address] Allergies Active Allergy Reactions Severity Noted Date Comments Codeine Hives 09/18/2010 Morphine Hives 04/07/2007 documented as of this encounter (statuses as of 02/22/2020) Medications Medication Sig Dispensed Refills Start Date End Date Status SINGULAIR ORAL None Entered 0 Ac tive PENTASA 500 MG ORAL None Entered 240 [...] daily. BIOTIN ORAL Take by mouth. 0 Ac tive Cholecalciferol, Take by mouth. 0 Active Vitamin D3, (VITAMIN D3) 2,000 unit tablet [id number] Take by mouth. 0 Active ORAL fluticasone-vilanterol [...] MAKE DROWSY hydrOXYzine 25 mg 0 08/13/2019 A ctive capsule hydrOXYzine 50 mg 0 08/08/2019 A ctive capsule COMBIVENT RESPIMAT 0 08/13/2019 Active 20-100 mcg/actuation inhaler nystatin-triamcinolone 0 06/02/2019 Active ointment polymyxin B PUT 1 DROP INTO 0 07/28/2019 A ctive sulf-trimethoprim AFFECTED EYE 4 10,000 unit- 1 [...] as of this encounter (statuses as of 02/22/2020) Active Problems Problem Noted Date Pain in joint, multiple sites 09/24/2019 Chronic midline low back pain without sciatica 019 History of Crohn's disease 09/24/2019 Long-term use of high-risk medication 09/24/2019 Crohn's disease with complication 03/01/2019 Psoriasis 03/01/2019 Bipolar affective 03/01/2019 Mitral valve disorder 06/06/2007 Overview: ICD10 Diagnosis Term Body Man Utility Asthma 05/08/2007 Overview: ICD10 Diagnosis Term Body Man Utility documented as of this encounter (statuses as of 02/22/2020) Resolved Problems Problem Noted Date Resolved Date Injury to nerves 06/06/2007 03/01/2019 Overview: IN ALL LIMBS ICD10 Diagnosis Term Body Man Utility 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 [place] [address] 08/19/2020 Office Visit Neurology Addi Harris MD [address] [place], [place] [address]d. [place], [place] [phone] Health Maintenance Due Date Last Done Comments PNEUMOCOCCAL 0-64 YEARS COMBINED SERIES (1 of - 1977 PPSV23) DTaP,Tdap,and Td Vaccines (1 - Tdap) 1982 Breast Cancer Screening (MAMMOGRAM) 2011 PAP SMEAR Discontinued 05/26/2007 INFLUENZA VACCINE Completed 09/17/2019 documented as of this encounter Results Not on filedocumented in this encounter Insurance Payer Benefit Plan / Subscriber ID Effective Phone Address T [facility] Group Dates BRISSA BRUMFIELD xxxxxxxxx 2014-Abimael Pereyra BOX [employer] [place] [id number] MA[place] MEDICAID [place], [place] documented as of this encounter
--- OUTSIDE RECORDS SUMMARY | 2020-04-01 11:53 | XMS REPORT | Summary of Care ---
:1970 Author Organization [facility] Address [address] [place] [address] Care Team Providers Name Role Phone Ed Skip Primary Care Provider Reason for Visit Reason Comments Assessment Rash Rx Concern/Question Encounter Details Date Type Department Care Team Description 03/16/2020 Telephone [facility] Milan Elizalde MD Assessment (Rash ); Rx Dermatology- [address] [place] [address] lvd. Concern/Question [employer] [id number] [place] [address] Drive, [address] [place] [address] Allergies Active Allergy Reactions Severity Noted Date Comments Codeine Hives 09/18/2010 Morphine Hives 04/07/2007 documented as of this encounter (statuses as of 03/17/2020) Medications Medication Sig Dispensed Refills Start Date [...] Vitamin D3, (VITAMIN D3) 2,000 unit tablet [id number] Take by mouth. 0 Active ORAL fluticasone-vilanterol [...] of both ears, unspecified chronicity, unspecified type mometasone 0.1 % Apply to area(s) 60 mL 3 02/22/2020 Active lotionIndications: daily. Other psoriasis documented as of this encounter (statuses as of 03/17/2020) Active Problems Problem Noted Date Pain in joint, multiple sites 09/24/2019 Chronic midline low back pain without sciatica 019 History of Crohn's disease 09/24/2019 Long-term use of high-risk medication 09/24/2019 Crohn's disease with complication 03/01/2019 Psoriasis 03/01/2019 Bipolar affective 03/01/2019 Mitral valve disorder 06/06/2007 Overview: ICD10 Diagnosis Term Director Of Retention Utility Asthma 05/08/2007 Overview: ICD10 Diagnosis Term Director Of Retention Utility documented as of this encounter (statuses as of 03/17/2020) Resolved Problems Problem Noted Date Resolved Date Injury to nerves 06/06/2007 03/01/2019 Overview: IN ALL LIMBS ICD10 Diagnosis Term Director Of Retention Utility 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 0 05/08/2007 03/01/2019 Overview: Crohn's disease Depressive disorder 05/08/2007 03/01/2019 Overview: ICD10 Diagnosis Term Director Of Retention Utility documented as of this encounter (statuses as of 03/17/2020) Social History Tobacco Use Types Packs/Day Years [...] Treatment Date Type Specialty Care Team Description 08/19/2020 Office Visit Neurology Addi Harris MD [address] [place] [phone] Health Maintenance Due Date Last Done Comments PNEUMOCOCCAL 0-64 YEARS COMBINED SERIES (1 of - 1977 PPSV23) DTaP,Tdap,and Td Vaccines (1 - Tdap) 1982 Breast Cancer Screening (MAMMOGRAM) 2011 PAP SMEAR Discontinued 05/26/2007 INFLUENZA VACCINE Completed 09/17/2019 documented as of this encounter Results Not on filedocumented in this encounter Insurance Payer Benefit Plan / Subscriber ID Effective Phone Address T [facility] Group Dates BRISSA BRUMFIELD xxxxxxxxx 2014-Abimael Huffman O BOX Medic [facility] [place] [id number] MANAGED MEDICAID [place], [place] documented as of this encounter
--- OUTSIDE RECORDS SUMMARY | 2020-04-01 11:53 | XMS REPORT | Summary of Care ---
:1970 Author Organization [facility] Address [address] [place] [address] Care Team Providers Name Role Phone Skip Ward Primary Care Provider Reason for Visit Reason Comments Skin Problem Encounter Details Date Type Department Care Team Description 02/12/2020 Telemedicine Visit [facility] Vee Garza MD [address] [place] [phone] Other psoriasis (Primary Dx); Dermatology- [place] Garza MD [address] [place] [address] [phone] Alopecia Sparks Milan Elizalde MD [address] [place] [address]. [place] [address] [facility] [address] [place] [address], [address] [place] [address] Allergies Active Allergy Reactions Severity [...] Vitamin D3, (VITAMIN D3) 2,000 unit tablet [id number] Take by mouth. 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 Provider location: Office Patient Location: Home Encounter type: Telephone with audio HPI: Elizabeth Garcia is a 49 year old female with hx of Chron's dz who presents for telehealth visit for follow up of a rash on her scalp, groin and back present for about 5 years that is itchy and tender. She reports, her rash started shortly after starting Humira. At her visit in 12/2019 her rash was suspected to be secondary to Humira and it was recommended that she discontinue Humira if ok with her GI. She reports, she has stopped Humira and is planned to start Remicade. She reports her rash has gotten much better since stopping Humira. She also reports that her hair is starting to grow back. However, she was not able to get clobetasol shampoo. She only uses her topicals intermittently because her rash is relatively well controlled. PMH/FHx/Social Hx: Past Medical History: Diagnosis Date Bipolar 2 disorder Crohn disease Neuropathy Psoriasis (-) personal hx of skin cancer (-) family hx of skin cancer SH: lives in [place] Review of Systems: (-) = negative (+) = positive Constitutional: pain (-) Skin: itching (-), growth (-), rash (+) Heme: bleeding (-) Immunosuppressed: (-) Physical Exam: Exam is limited due to the primarily audio/telephone nature of the encounter. 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 Levi Tran- [phone]) - Start Mometasone solution BID to scalp - ContinueTriamcinolone ointment BID to rash on trunk, extremities and face. RTC 3 months A total of 10 minutes was spent on the telephone call with the patient. Milan Elizalde MD 02/22/2020 2:15 PM documented in this encounter Plan of Treatment Date Type Specialty Care Team Description 08/19/2020 Office Visit Neurology Addi Harris MD [address] [place] [address]. [place], [place] [phone] Health Maintenance Due Date Last Done Comments PNEUMOCOCCAL 0-64 YEARS COMBINED SERIES (1 of - 1977 PPSV23) DTaP,Tdap,and Td Vaccines (1 - Tdap) 1982 Breast Cancer Screening (MAMMOGRAM) 2011 PAP SMEAR Discontinued 05/26/2007 INFLUENZA VACCINE Completed 09/17/2019 documented as of this encounter Results Not on filedocumented in this encounter Visit Diagnoses Diagnosis Other psoriasis - Primary Alopecia Alopecia, unspecified documented in this encounter Insurance Payer Benefit Plan / Subscriber ID Effective Phone Address T ype Group Dates BRISSA BRUMFIELD xxxxxxxxx 2014-Prese [address] BOX Medic [facility] [place] [id number] MANAGED MEDICAID [place] [phone] [id number] (Work) documented as of this encounter
--- OUTSIDE RECORDS SUMMARY | 2020-04-01 11:54 | XMS REPORT | Summary of Care ---
:1970 Author Organization [facility] - [facility] Address [address] [place] [id number] Care Team Providers Name Role Phone Skip Ward Primary Care Provider Reason for Visit Reason Comments Skin Problem Encounter Details Date Type Department Care Team Description 03/18/2020 Telemedicine Visit [facility] Edil Sanchez MD [address] [place] [phone] Rash and other nonspecific skin eruption (Primary Dx); Dermatology- Milan Elizalde MD [address] [place] [address]. [place] [phone] Other psoriasis; [place] Alopecia; [facility] Impetiginizatio n of other dermatoses Clinics [address] [facility], 5th [place] [phone] Allergies Active Allergy Reactions Severity Noted Date Comments Codeine Hives 09/18/2010 Morphine Hives 04/07/2007 documented as of this encounter (statuses as of 03/23/2020) Medications Medication Sig Dispensed Refills Start End Date Status Date SINGULAIR ORAL None Entered 0 Ac tive PENTASA 500 MG None Entered 240 1 10/31/200 Ac tive ORAL 9 CPSRIndications: Regional enteritis of small intestine with large intestine FLUoxetine Take 60 mg by 0 Activ e (PROZAC) 20 mg mouth daily. capsule topiramate Take 50 mg by 0 Activ e (TOPAMAX) 50 mg mouth 2 (two) tablet times daily. risperiDONE 1 mg TAKE 2 TABLETS BY 2 Active tablet MOUTH AT BEDTIME 7 MAY MAKE DROWSY HUMIRA PEN 40 0 Active mg/0.8 mL 7 injection amLODIPine 5 mg 0 Acti ve tablet 7 atorvastatin 20 Take 20 mg by 1 Active mg tablet mouth daily. 7 albuterol (PROAIR Inhale 2 Puffs 18 g 1 Active HFA) 90 every 4 (four) 8 mcg/actuation hours as needed inhalerIndication for Wheezing or s: Mild asthma Shortness of with Breath. exacerbation, unspecified whether persistent ketoconazole 2 % Apply to area(s) 120 mL 8 Active shampoo once daily as 8 needed for Itching. aspirin 81 mg EC Take 81 mg by 0 Active tablet mouth daily. BIOTIN ORAL Take by mouth. 0 Ac tive Cholecalciferol, Take by mouth. 0 Active Vitamin D3, (VITAMIN D3) 2,000 unit tablet CALCIUM-MAGNESIUM Take by mouth. 0 Active -ZINC ORAL fluticasone-vilan Inhale. 0 Ac tive terol (BREO ELLIPTA) 100-25 mcg/dose DsDv terbinafine HCl Take 1 tablet by 14 tablet 0 Active 250 mg mouth daily. 9 tabletIndications : Tinea corporis triamcinolone Apply to area(s) 454 g 1 Active acetonide 0.1 % 2 (two) times 9 creamIndications: daily. Other psoriasis gabapentin 100 mg Take 1 capsule by 90 capsule 11 Active capsuleIndication mouth 3 (three) 9 s: Neuropathy times daily. buPROPion XL 300 0 Act norris mg 24 hr tablet 9 hydrOXYzine 25 mg TAKE 1 TABLET BY 0 Active tablet MOUTH EVERY 8 9 HOURS NEEDED MAY MAKE DROWSY hydrOXYzine 25 mg 0 Ac tive capsule 9 hydrOXYzine 50 mg 0 Ac tive capsule 9 COMBIVENT 0 Active RESPIMAT 20-100 9 mcg/actuation inhaler nystatin-triamcin 0 Ac tive olone ointment 9 polymyxin B PUT 1 DROP INTO 0 Ac tive sulf-trimethoprim AFFECTED EYE 4 9 10,000 unit- 1 TIMES DAILY FOR 5 mg/mL ophthalmic DAYS drops sulfamethoxazole- TAKE 1 TABLET BY 0 Active trimethoprim MOUTH 2 TIMES 9 800-160 mg per DAILY WITH A tablet GLASS OF WATER UNTIL ALL TAKEN fluocinonide 0.05 Apply to area(s) 15 g 0 Active % 2 (two) times 9 ointmentIndicatio daily. ns: Psoriasis triamcinolone Apply to area(s) 454 g 5 Active acetonide 0.1 % 2 (two) times 0 ointmentIndicatio daily. ns: Rash and other nonspecific skin eruption Clobetasol Apply to area(s) 118 mL 3 A ctive Propionate 0.05 % 2 (two) times 0 shampooIndication daily. s: Rash and other nonspecific skin eruption Fluocinolone Place 1 Drop in 20 mL 5 A ctive Acetonide Oil each ear 2 (two) 0 (DERMOTIC OIL) times daily. 0.01 % otic dropsIndications: Rash and other nonspecific skin eruption ciprofloxacin-dex Place 2 Drops in 7.5 mL 2 Active amethasone both ears 2 (two) 0 0.3-0.1 % otic times daily. dropsIndications: Otitis externa of both ears, unspecified chronicity, unspecified type mometasone 0.1 % Apply to area(s) 60 mL 3 Active lotionIndications daily. 0 : Other psoriasis triamcinolone Apply to area(s) 454 g 2 Active acetonide 0.1 % 2 (two) times 0 creamIndications: daily. Rash and other nonspecific skin eruption nystatin 100,000 Apply to area(s) 1 lb 2 Active unit/gram 2 (two) times 0 creamIndications: daily. Mix with Rash and other triamcinolone and nonspecific skin apply twice a day eruption to rash in groin valACYclovir 1 Take 1 tablet by 14 tablet 0 Active gram mouth 2 (two) 0 tabletIndications times daily. : Rash and other nonspecific skin eruption doxycycline Take 1 capsule by 14 capsule 0 Active monohydrate 100 mouth 2 (two) 0 mg times daily. capsuleIndication s: Rash and other nonspecific skin eruption ciprofloxacin-dex Place 2 Drops in 7.5 mL 1 Active amethasone both ears 2 (two) 0 0.3-0.1 % otic times daily. dropsIndications: Rash and other nonspecific skin eruption doxycycline Take 1 capsule by 14 capsule 0 03/23/20 Discontinued monohydrate 100 mouth 2 (two) 0 20 (Reorder) mg times daily for 7 capsuleIndication days. s: Rash and other nonspecific skin eruption valACYclovir 1 Take 1 tablet by 14 tablet 0 03/23/20 Discontinued gram mouth 2 (two) 0 20 (Reord er) tabletIndications times daily for 7 : Rash and other days. nonspecific skin eruption documented as of this encounter (statuses as of 03/23/2020) Active Problems Problem Noted Date Pain in joint, multiple sites 09/24/2019 Chronic midline low back pain without sciatica 019 History of Crohn's disease 09/24/2019 Long-term use of high-risk medication 09/24/2019 Crohn's disease with complication 03/01/2019 Psoriasis 03/01/2019 Bipolar affective 03/01/2019 Mitral valve disorder 06/06/2007 Overview: ICD10 Diagnosis Term Photographic Platemaker Utility Asthma 05/08/2007 Overview: ICD10 Diagnosis Term Photographic Platemaker Utility documented as of this encounter (statuses as of 03/23/2020) Resolved Problems Problem Noted Date Resolved Date Injury to nerves 06/06/2007 03/01/2019 Overview: IN ALL LIMBS ICD10 Diagnosis Term Photographic Platemaker Utility 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 Provider location: Office Patient Location: Home Encounter type: Telephone with audio and pictures HPI: Elizabeth Garcia is a 49 year old female with hx of Chron's dz and psoriasis vs psoriasiform dermatitis 12/20 Humira who presents for telehealth visit complaining of a rash to the groin and ears, present for a few weeks but acutely worse over the past several days. She complains of associated itching and burning. She has been treated with Lidex without improvement. Previous history: psoriasiform rash on her scalp, groin and back present for about 5 years. Her rashstarted shortly after starting Humira. At her visit in 12/2019 her rash was suspected to be secondaryto Humira and it was recommended that she discontinue Humira if ok with her GI. She has recently stopped Humira and been switched to Remicade. Her rash has gotten much better since stopping Humira. Shepreviously was also noted to have plaques on her scalp with associated alopecia. This has also gotten much better with significant hair regrowth since stopping Humira. PMH/FHx/Social Hx: Past Medical History: Diagnosis Date Bipolar 2 disorder Crohn disease Neuropathy Psoriasis (-) personal hx of skin cancer (-) family hx of skin cancer SH: lives in [place] Review of Systems: (-) = negative (+) = positive Constitutional: pain (-) Skin: itching (-), growth (-), rash (+) Heme: bleeding (-) Immunosuppressed: (-) Physical Exam: General: no evidence of distress perceived via telephone call Neuro: Alert and oriented. Psyche: answering questions appropriately. Speaking in full sentences Skin: Erythematous macerated plaques in the inguinal folds and abdominal panus with man surrounding erythematous papules, pustules and vesicles. Retroauricular macerated plaques with peripheral erythematous scaly plaques. Erythema scaling and crusting of pinna. Assessment/Plan: Rash or other nonspecific skin eruption- groin, inguinal folds, abdominal panus and suprapubic area DDx: highly suspicious for ross intertrigo, likely 2/2 use of topical steroid in these areas without antifungal. Difficult to discern in pictures but there also appear to be grouped papulopustules and vesicles that are also highly suspicious for HSV. - Start Triamcinolone 0.1% cream mixed 1-to-1 with Nystatin cream and apply BID - Start Valacyclovir 1g BID x7 days Rash or other nonspecific skin eruption- ears, postauricular DDx: Suspect exacerbation of underlying psoriasis (ears have been a problem area in the past and classic psoriasiform plaques are seen at the periphery of the macerated areas) with possible secondary impetiginization. 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 Levi Tran- [phone]) - Continue Mometasone solution BID to scalp - ContinueTriamcinolone ointment BID to rash on trunk, extremities and face. RTC 1 week Milan Elizalde MD 03/19/2020 9:31 AM documented in this encounter Plan of Treatment Date Type Specialty Care Team Description 04/22/2020 Office Visit Dermatology Milan Elizalde MD [address] [place] [phone] 08/19/2020 Office Visit Neurology Addi Harris MD [address] [place] [phone] Health Maintenance Due Date Last Done Comments PNEUMOCOCCAL 0-64 YEARS COMBINED SERIES ( of - 1977 PPSV23) DTaP,Tdap,and Td Vaccines (1 - Tdap) 1982 Breast Cancer Screening (MAMMOGRAM) 2011 PAP SMEAR Discontinued 05/26/2007 INFLUENZA VACCINE Completed 09/17/2019 documented as of this encounter Results Not on filedocumented in this encounter Visit Diagnoses Diagnosis Rash and other nonspecific skin eruption - Primary Other psoriasis Alopecia Alopecia, unspecified Impetiginization of other dermatoses documented in this encounter Insurance Payer Benefit Plan / Subscriber ID Effective Phone Address T ype Group Dates BRISSA BRUMFIELD xxxxxxxxx 2014-[address] Medic aid [facility] - [facility] [address] MANAGED MEDICAID [place], [place] [phone] (Work) documented as of this encounter
--- OUTSIDE RECORDS SUMMARY | 2020-04-01 11:54 | XMS REPORT | Summary of Care ---
:1970 Author Organization [facility] - [facility] Address [address] [place] [id number] Care Team Providers Name Role Phone Skip Ward Primary Care Provider Reason for Visit Reason Comments Skin Problem Encounter Details Date Type Department Care Team Description 03/18/2020 Telemedicine Visit [facility] Edil Sanchez MD [address] [place] [phone] Rash and other nonspecific skin eruption (Primary Dx); Dermatology- Milan Elizalde MD [address] [place] [address]. [place] [phone] Other psoriasis; [place] Alopecia; [facility] Impetiginizatio n of other dermatoses Clinics [address] [facility], 5th [place] [phone] Allergies Active Allergy Reactions Severity Noted Date Comments Codeine Hives 09/18/2010 Morphine Hives 04/07/2007 documented as of this encounter (statuses as of 03/19/2020) Medications Medication Sig Dispensed Refills Start Date End Date Status SINGULAIR ORAL None Entered 0 Ac tive PENTASA 500 MG ORAL None Entered 240 1 10/31/2009 Active CPSRIndications: Regional enteritis of small intestine with large intestine FLUoxetine (PROZAC) Take 60 mg by mouth 0 Active 20 mg capsule daily. topiramate Take 50 mg by mouth 0 Active (TOPAMAX) 50 mg 2 (two) times tablet daily. risperiDONE 1 mg TAKE 2 TABLETS BY 2 02/23/2017 Active tablet MOUTH AT BEDTIME MAY MAKE DROWSY HUMIRA PEN 40 0 07/27/2017 Activ e mg/0.8 mL injection amLODIPine 5 mg 0 07/08/2017 Act norris tablet atorvastatin 20 mg Take 20 mg by mouth 1 07/10/2017 Active tablet daily. albuterol (PROAIR Inhale 2 Puffs 18 g 1 12/07/2017 Active HFA) 90 every 4 (four) mcg/actuation hours as needed for inhalerIndications: Wheezing or Mild asthma with Shortness of exacerbation, Breath. unspecified whether persistent ketoconazole 2 % Apply to area(s) 120 mL 8 01/06/2018 Active shampoo once daily as needed for Itching. aspirin 81 mg EC Take 81 mg by mouth 0 Active tablet daily. BIOTIN ORAL Take by mouth. 0 Ac tive Cholecalciferol, Take by mouth. 0 Active Vitamin D3, (VITAMIN D3) 2,000 unit tablet [id number] Take by mouth. 0 Active INC ORAL fluticasone-vilante Inhale. 0 Active rol (BREO ELLIPTA) 100-25 mcg/dose DsDv terbinafine HCl 250 Take 1 tablet by 14 tablet 0 06/18/2019 Active mg mouth daily. tabletIndications: Tinea corporis triamcinolone Apply to area(s) 2 454 g 1 06/25/2019 Active acetonide 0.1 % (two) times daily. creamIndications: Other psoriasis gabapentin 100 mg Take 1 capsule by 90 capsule 11 08/18/2019 Active capsuleIndications: mouth 3 (three) Neuropathy times daily. buPROPion XL 300 mg 0 08/10/2019 Active 24 hr tablet hydrOXYzine 25 mg TAKE 1 TABLET BY 0 06/03/2019 Active tablet MOUTH EVERY 8 HOURS NEEDED MAY MAKE DROWSY hydrOXYzine 25 mg 0 08/13/2019 A ctive capsule hydrOXYzine 50 mg 0 08/08/2019 A ctive capsule COMBIVENT RESPIMAT 0 08/13/2019 Active 20-100 mcg/actuation inhaler nystatin-triamcinol 0 06/02/2019 Active one ointment polymyxin B PUT 1 DROP INTO 0 07/28/2019 A ctive sulf-trimethoprim AFFECTED EYE 4 10,000 unit- 1 TIMES DAILY FOR 5 mg/mL ophthalmic DAYS drops sulfamethoxazole-tr TAKE 1 TABLET BY 0 07/28/2019 Active imethoprim 800-160 MOUTH 2 TIMES DAILY mg per tablet WITH A GLASS OF WATER UNTIL ALL TAKEN fluocinonide 0.05 % Apply to area(s) 2 15 g 0 11/15/2019 Active ointmentIndications (two) times daily. : Psoriasis triamcinolone Apply to area(s) 2 454 g 5 12/30/2019 Active acetonide 0.1 % (two) times daily. ointmentIndications : Rash and other nonspecific skin eruption Clobetasol Apply to area(s) 2 118 mL 3 12/30/2019 Active Propionate 0.05 % (two) times daily. shampooIndications: Rash and other nonspecific skin eruption Fluocinolone Place 1 Drop in 20 mL 5 12/30/2019 Active Acetonide Oil each ear 2 (two) (DERMOTIC OIL) 0.01 times daily. % otic dropsIndications: Rash and other nonspecific skin eruption ciprofloxacin-dexam Place 2 Drops in 7.5 mL 2 01/13/2020 Active ethasone 0.3-0.1 % both ears 2 (two) otic times daily. dropsIndications: Otitis externa of both ears, unspecified chronicity, unspecified type mometasone 0.1 % Apply to area(s) 60 mL 3 02/22/2020 Active lotionIndications: daily. Other psoriasis triamcinolone Apply to area(s) 2 454 g 2 03/18/2020 Active acetonide 0.1 % (two) times daily. creamIndications: Rash and other nonspecific skin eruption nystatin 100,000 Apply to area(s) 2 1 lb 2 03/18/2020 Active unit/gram (two) times daily. creamIndications: Mix with Rash and other triamcinolone and nonspecific skin apply twice a day eruption to rash in groin doxycycline Take 1 capsule by 14 capsule 0 03/18/2020 03/25/20 20 Active monohydrate 100 mg mouth 2 (two) times capsuleIndications: daily for 7 days. Rash and other nonspecific skin eruption valACYclovir 1 gram Take 1 tablet by 14 tablet 0 03/18/2020 Active tabletIndications: mouth 2 (two) times Rash and other daily for 7 days. nonspecific skin eruption documented as of this encounter (statuses as of 03/19/2020) Active Problems Problem Noted Date Pain in joint, multiple sites 09/24/2019 Chronic midline low back pain without sciatica 019 History of Crohn's disease 09/24/2019 Long-term use of high-risk medication 09/24/2019 Crohn's disease with complication 03/01/2019 Psoriasis 03/01/2019 Bipolar affective 03/01/2019 Mitral valve disorder 06/06/2007 Overview: ICD10 Diagnosis Term Fleet Coordinator Utility Asthma 05/08/2007 Overview: ICD10 Diagnosis Term Fleet Coordinator Utility documented as of this encounter (statuses as of 03/19/2020) Resolved Problems Problem Noted Date Resolved Date Injury to nerves 06/06/2007 03/01/2019 Overview: IN ALL LIMBS ICD10 Diagnosis Term Fleet Coordinator Utility 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 Levi Tran- [phone]) - Continue Mometasone solution BID to scalp - ContinueTriamcinolone ointment BID to rash on trunk, extremities and face. RTC 1 week Milan Elizalde MD 03/19/2020 9:31 AM documented in this encounter Plan of Treatment Date Type Specialty Care Team Description 08/19/2020 Office Visit Neurology Addi Harris MD [address] [place] [address]. [place], [place] [phone] Health Maintenance Due Date [...] / Subscriber ID Effective Phone Address T e Group Dates BRISSA BRUMFIELD xxxxxxxxx 2014-[employer] [address] Medic [place] [id number] [place] MEDICA[place], [place] (Work) documented as of this encounter
[2020-04-01 14:06] VITALS: BMI 34.3
[2020-04-01 14:13] VITALS: BP 123/63; TEMP 97.9; O2SAT 97
== END 2020-04-01 13:40 | disposition home or self-care (01) ==
LOC: DS 10:30
PROVIDERS: ATTEND Internal Medicine Gastroenterology
DX: K50.90 Crohn's disease, unspecified, without complications (principal)
CPT/HCPCS: 96365; 96366; J1642; Q5103; J7030

== ENCOUNTER 2020-04-15 10:02 | Day surgery (SDC) | payer MEDICAID ==
[2020-04-15] MEDS ORDERED: INFLIXIMAB-DYYB 400 MG in NA CHLORIDE 0.9% 250 ML IV ONE (10:30)
--- OUTSIDE RECORDS SUMMARY | 2020-04-15 10:55 | XMS REPORT ---
:1970 Author Organization [facility] t Address [address] [place] [address] [address]. Paige [address] [place] [address] Care Team Providers Name Role Phone Tonio [...] ID 2020-03-18 2020-03-23 Telemedici FABIANA Elizalde [id number] 09:38:05 17:09:50 ne Visit [facility] [id number] [facility] [id number] Results This patient has no known results.
[2020-04-15] MEDS ORDERED: NA CHLORIDE 0.9% 250 ML ONE (10:59)
[2020-04-15] MEDS ORDERED: ACETAMINOPHEN 325 MG TABLET ONE (11:44)
[2020-04-15 13:19] VITALS: O2SAT 98; BMI 34.3
[2020-04-15] MEDS ORDERED: HEPARIN 500 UNIT/5 ML SYR IV ONE (14:21)
[2020-04-15 16:13] VITALS: BP 114/62; TEMP 97.3
== END 2020-04-15 14:30 | disposition home or self-care (01) ==
LOC: DS 10:02
PROVIDERS: ATTEND Internal Medicine Gastroenterology
DX: K50.90 Crohn's disease, unspecified, without complications (principal)
CPT/HCPCS: 96365; 96523; 96366; J1642; Q5103; J7030 ×2

== ENCOUNTER 2020-05-13 08:43 | Day surgery (SDC) | payer MEDICAID ==
[2020-05-13] MEDS ORDERED: INFLIXIMAB-DYYB 400 MG in NA CHLORIDE 0.9% 250 ML IV ONE (09:00)
[2020-05-13] MEDS ORDERED: NA CHLORIDE 0.9% 250 ML ONE (09:04)
[2020-05-13] MEDS ORDERED: ACETAMINOPHEN 325 MG TABLET ONE (09:04)
--- OUTSIDE RECORDS SUMMARY | 2020-05-13 09:28 | XMS REPORT | Continuity of Care Document ---
:1970 Author Organization [facility] t Address [address] [place] [address] Dr. Paige [address] [place] [address] Care Team Providers Name Role Phone Tonio ZEE Attending Clinician Problems This patient has no known problems. Allergies, Adverse Reactions, Alerts This patient has no known allergies or adverse reactions. Medications This patient has no known medications. Procedures This patient has no known procedures. Encounters Start End Encounter Admission Attending Care Care Encounter Source Date/Time Date/Time Type Type Clinicians Facility Department ID 2020-03-18 2020-05-04 TelemedicFABIANA Cheatham [id number] 09:38:05 08:33:52 ne Visit [facility] [id number] [facility] [id number] 027 Results This patient has no known results.
--- OUTSIDE RECORDS SUMMARY | 2020-05-13 09:31 | XMS REPORT | Summary of Care ---
:1970 Author Organization [facility] - [facility] Address [address] [place] [address] Care Team Providers Name Role Phone Skip Ward Primary Care Provider Reason for Visit Reason Comments Skin Problem Encounter Details Date Type Department Care Team Description 03/18/2020 Telemedicine Visit [facility] Edil Sanchez MD [address] [place] [phone] Rash and other nonspecific skin eruption (Primary Dx); Dermatology- Milan Elizalde MD [address] [place] [address]. [place] [phone] Other psoriasis; [place] Alopecia; [facility] Impetiginizatio n of other dermatoses Clinics [address] [facility], 5th [place] [phone] Allergies Active Allergy Reactions Severity Noted Date Comments Codeine Hives 09/18/2010 Morphine Hives 04/07/2007 documented as of this encounter (statuses as of 05/04/2020) Medications Medication Sig Dispensed Refills Start End [...] dropsIndications: Rash and other nonspecific skin eruption nystatin-triamcin Apply to area(s) 60 g 3 Active olone 2 (two) times 0 creamIndications: daily. Rash and other nonspecific skin eruption mometasone 0.1 % Apply to area(s) 60 mL 3 Active lotionIndications 2 (two) times 0 : Rash and other daily. nonspecific skin eruption doxycycline Take 1 capsule [...] as of this encounter (statuses as of 05/04/2020) Active Problems Problem Noted Date Pain in joint, multiple sites 09/24/2019 Chronic midline low back pain without sciatica 019 History of Crohn's disease 09/24/2019 Long-term use of high-risk medication 09/24/2019 Crohn's disease with complication 03/01/2019 Psoriasis 03/01/2019 Bipolar affective 03/01/2019 Mitral valve disorder 06/06/2007 Overview: ICD10 Diagnosis Term Supervisor Beet End Utility Asthma 05/08/2007 Overview: ICD10 Diagnosis Term Supervisor Beet End Utility documented as of this encounter (statuses as of 05/04/2020) Resolved Problems Problem Noted Date Resolved Date Injury to nerves 06/06/2007 03/01/2019 Overview: IN ALL LIMBS ICD10 Diagnosis Term Supervisor Beet End Utility 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 Sims [facility]- [phone]) - Continue Mometasone solution BID to scalp - ContinueTriamcinolone ointment BID to rash on trunk, extremities and face. RTC 1 week Milan Elizalde MD 03/19/2020 9:31 AM documented in this encounter Plan of Treatment Date Type Specialty Care Team Description 08/19/2020 Office Visit Neurology Addi Harris MD [address] [place] [address]. [place], [place] [phone] Health Maintenance Due Date Last Done Comments PNEUMOCOCCAL 0-64 YEARS COMBINED SERIES ( - 1977 PPSV23) DTaP,Tdap,and Td Vaccines (1 - Tdap) 1982 Breast Cancer Screening (MAMMOGRAM) 2011 Depression Screening 01/13/2021 01/13/2020 PAP SMEAR Discontinued 05/26/2007 INFLUENZA VACCINE Completed 09/17/2019 documented as of this encounter Results Not on filedocumented in this encounter Visit Diagnoses Diagnosis Rash and other nonspecific skin eruption - Primary Other psoriasis Alopecia Alopecia, unspecified Impetiginization of other dermatoses documented in this encounter Insurance Payer Benefit Plan / Subscriber ID Effective Phone Address T e Group Dates [facility] [place] [facility] [place] [address] MANAGED MEDICAID [place], [place] [phone] [id number] (Work) documented as of this encounter
[2020-05-13 10:02] VITALS: BMI 35.2
[2020-05-13] MEDS ORDERED: HEPARIN 500 UNIT/5 ML SYR IV ONE (12:11)
[2020-05-13 14:59] VITALS: O2SAT 97
[2020-05-13 15:00] VITALS: BP 120/60; TEMP 98.5
== END 2020-05-13 12:10 | disposition home or self-care (01) ==
LOC: DS 08:43
PROVIDERS: ATTEND Internal Medicine Gastroenterology
DX: K50.90 Crohn's disease, unspecified, without complications (principal)
CPT/HCPCS: 96365; 96523; 96366; J1642; Q5103; J7030 ×2

== ENCOUNTER 2020-07-02 19:00 | Emergency (ER) | payer MEDICAID ==
--- OUTSIDE RECORDS SUMMARY | 2020-07-02 19:02 | XMS REPORT | Continuity of Care Document ---
:1970 Author Organization [facility] t Address [address] [place] [address] Dr. Paige [address] [place] [address] Care Team Providers Name Role Phone Tonio ZEE Attending Clinician Problems This patient has no known problems. Allergies, Adverse Reactions, Alerts This patient has no known allergies or adverse reactions. Medications This patient has no known medications. Procedures This patient has no known procedures. Encounters Start End Encounter Admission Attending Care Care Encounter Source Date/Time Date/Time Type Type Clinicians Facility Department ID 2020-03-18 2020-06-10 Telemedici FABIANA Elizalde [id number] 09:38:05 19:51:25 ne Visit [facility] [id number] [facility] [id number] 027 Results This patient has no known results.
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
[2020-07-02] MEDS ORDERED: SILVER SULFADIAZINE 1% 50 GM TOP ONE (20:11)
[2020-07-02 20:53] VITALS: BP 116/78; TEMP 98; O2SAT 99
== END 2020-07-02 20:44 | disposition home or self-care (01) ==
LOC: ER 19:00
DX: T21.11XA Burn of first degree of chest wall, initial encounter (principal); T20.10XA Burn of first degree of head, face, and neck, unspecified site, initial encounter; I10 Essential (primary) hypertension; Z88.5 Allergy status to narcotic agent
CPT/HCPCS: 99284

== ENCOUNTER 2020-07-08 08:43 | Day surgery (SDC) | payer MEDICAID ==
[2020-07-08] MEDS ORDERED: NA CHLORIDE 0.9% 250 ML ONE ×2 (09:22→10:19)
[2020-07-08] MEDS ORDERED: HEPARIN 500 UNIT/5 ML SYR IV ONE (09:22)
[2020-07-08] MEDS ORDERED: INFLIXIMAB-DYYB 400 MG in NA CHLORIDE 0.9% 250 ML IV ONE (09:30)
--- OUTSIDE RECORDS SUMMARY | 2020-07-08 09:33 | XMS REPORT | Continuity of Care Document ---
:1970 Author Organization [facility] t Address [address] [place] [address] [address]. Paige [address] [place] [address] Care Team Providers Name Role Phone Tonio [...] ID 2020-03-18 2020-06-10 Telemedici FABIANA Elizalde [id number] 09:38:05 19:51:25 ne Visit [facility] [id number] [facility] [id number] 027 Results This patient has no known results.
[2020-07-08 16:09] VITALS: BMI 5061.6
[2020-07-08 16:55] VITALS: BP 129/71; TEMP 97; O2SAT 98
== END 2020-07-08 13:15 | disposition home or self-care (01) ==
LOC: DS 08:43
PROVIDERS: ATTEND Internal Medicine Gastroenterology
DX: K50.90 Crohn's disease, unspecified, without complications (principal)
CPT/HCPCS: 96365; 96366; J1642; Q5103; J7050 ×2

== ENCOUNTER 2020-09-05 09:14 | Day surgery (SDC) | payer MEDICAID ==
--- OUTSIDE RECORDS SUMMARY | 2020-09-05 09:27 | XMS REPORT | Continuity of Care Document ---
:1970 Author Organization [facility] t Address [address] [place] [address] Dr. Paige [address] [place] [address] Care Team Providers Name Role Phone Tonio [...] ID 2020-03-18 2020-06-10 Telemedici FABIANA Elizalde [id number] 09:38:05 19:51:25 ne Visit [facility] [id number] [facility] [id number] 027 Results This patient has no known results.
[2020-09-05] MEDS ORDERED: INFLIXIMAB-DYYB 400 MG in NA CHLORIDE 0.9% 250 ML IV ONE (09:30)
[2020-09-05] MEDS ORDERED: NA CHLORIDE 0.9% 500 ML ONE (09:33)
[2020-09-05 10:21] VITALS: BMI 35.2
[2020-09-05] MEDS ORDERED: HEPARIN 500 UNIT/5 ML SYR IV ONE (12:56)
[2020-09-05 13:37] VITALS: TEMP 97.6
[2020-09-05 13:42] VITALS: BP 105/60; O2SAT 95
== END 2020-09-05 12:55 | disposition home or self-care (01) ==
LOC: DS 09:14
PROVIDERS: ATTEND Internal Medicine Gastroenterology
DX: K50.90 Crohn's disease, unspecified, without complications (principal)
CPT/HCPCS: 96365; 96523; 96366; J1642; Q5103; J7050; J7040

== ENCOUNTER 2020-12-05 09:05 | Day surgery (SDC) | payer OTHER ==
--- OUTSIDE RECORDS SUMMARY | 2020-12-05 09:21 | XMS REPORT | Continuity of Care Document ---
:1970 Author Organization [facility] t Address [address] [place] [address] Care Team Providers Name Role Phone Lab, Fam Pob I Attending Clinician Unavailable Only, Test Attending Clinician Unavailable Steven ZEE, Gene Attending Clinician Problems This patient has no known problems. Allergies, Adverse Reactions, Alerts This patient has no known allergies or adverse reactions. Medications This patient has no known medications. Procedures This patient has no known procedures. Encounters Start End Encounter Admission Attending Care Care Encounter Source Date/Time Date/Time Type Type Clinicians Facility Department ID 2020-10-21 2020-10-21 Laboratory Lab, [facility] [id number] 15:00:14 15:20:14 Only Fam Pob I Health [id number] [place] [id number] [facility] [id number] nal 044 Office [address] One 2020-10-10 2020-10-10 Laboratory Only, [facility] [id number] 11:41:02 11:56:02 Only Test [place] [id number] [place] [id number] [place] [phone] [id number] 2020-09-23 2020-09-23 Laboratory Lab, [facility] [id number] 15:05:51 15:25:51 Only Fam Pob I Health [id number] [place] [id number] [place] [phone] nal 044 Office Building One 2020-08-29 2020-08-29 Office Steven [facility] [id number] 09:25:59 10:03:33 Visit Addi [place] [id number] [place] [id number] [place] [phone] [facility] 092 Building Results This patient has no known results.
--- OUTSIDE RECORDS SUMMARY | 2020-12-05 09:22 | XMS REPORT | Summary of Care ---
:1970 Author Organization [facility] [employer] Address [address] [place] [address] Care Team Providers Name Role Phone Ed Skip Primary Care Provider Reason for Visit Reason Comments LAB Exposure Encounter Details Date Type Department Care Team Description 09/23/2020 Laboratory Only [facility] Family Manish Jama FNP [address] [place] [phone] Exposure to Medicine - [place] [facility], Adc Fam Pob I SARS-associated [address] [place] [address] coronaviru s (Primary Drive Dx) [place] [phone] Allergies Active Allergy Reactions Severity Noted Date Comments Codeine Hives 09/18/2010 Morphine Hives 04/07/2007 documented as of this encounter (statuses as of 09/23/2020) Medications Medication Sig Dispensed Refills Start Date [...] Vitamin D3, (VITAMIN D3) 2,000 unit tablet [id number] Take by mouth. 0 Active ORAL fluticasone-vilanterol Inhale. 0 Active (BREO ELLIPTA) 100-25 mcg/dose DsDv terbinafine HCl 250 mg Take 1 tablet by 14 tablet 0 06/18/2019 Active tabletIndications: mouth daily. Tinea corporis triamcinolone Apply to area(s) 454 g 1 06/25/2019 Active acetonide 0.1 % 2 (two) times creamIndications: daily. Other psoriasis buPROPion XL 300 mg 24 0 08/10/2019 [...] daily. Other psoriasis triamcinolone Apply to area(s) 454 g 2 03/18/2020 Active acetonide 0.1 % 2 (two) times creamIndications: Rash daily. and other nonspecific skin eruption nystatin 100,000 Apply to area(s) 1 lb 2 03/18/2020 Active unit/gram 2 (two) times creamIndications: Rash daily. Mix with and other nonspecific triamcinolone and skin eruption apply twice a day to rash in groin valACYclovir 1 gram Take 1 tablet by 14 tablet 0 03/23/2020 Active tabletIndications: mouth 2 (two) Rash and other times daily. nonspecific skin eruption doxycycline Take 1 capsule by 14 capsule 0 03/23/2020 Active monohydrate 100 mg mouth 2 (two) capsuleIndications: times daily. Rash and other nonspecific skin eruption ciprofloxacin-dexameth Place 2 Drops in 7.5 mL 1 03/23/2020 Active asone 0.3-0.1 % otic both ears 2 (two) dropsIndications: Rash times daily. and other nonspecific skin eruption nystatin-triamcinolone Apply to area(s) 60 g 3 0 Active creamIndications: Rash 2 (two) times and other nonspecific daily. skin eruption mometasone 0.1 % Apply to area(s) 60 mL 3 05/04/2020 Active lotionIndications: 2 (two) times Rash and other daily. nonspecific skin eruption fluocinonide 0.05 % Apply to area(s) 60 mL 3 06/10/2020 Active solutionIndications: 2 (two) times Other psoriasis, daily. Impetiginization of other dermatoses doxepin 25 mg Take 1 capsule by 30 capsule 2 06/10/2020 Active capsuleIndications: mouth at bedtime. Other psoriasis, Impetiginization of other dermatoses gabapentin 100 mg Take 1 capsule by 90 capsule 11 08/29/2020 Active capsuleIndications: mouth 3 (three) Neuropathy times daily. documented as of this encounter (statuses as of 09/23/2020) Active Problems Problem Noted Date Pain in joint, multiple sites 09/24/2019 Chronic midline low back pain without sciatica 019 History of Crohn's disease 09/24/2019 Long-term use of high-risk medication 09/24/2019 Crohn's disease with complication 03/01/2019 Psoriasis 03/01/2019 Bipolar affective 03/01/2019 Mitral valve disorder 06/06/2007 Overview: ICD10 Diagnosis Term Magnetizer Utility Asthma 05/08/2007 Overview: ICD10 Diagnosis Term Magnetizer Utility documented as of this encounter (statuses as of 09/23/2020) Resolved Problems Problem Noted Date Resolved Date Injury to nerves 06/06/2007 03/01/2019 Overview: IN ALL LIMBS ICD10 Diagnosis Term Magnetizer Utility 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 documented as of this encounter Last Filed Vital Signs Not on filedocumented in this encounter Nursing Notes Blanca Ruby MA - 09/23/2020 3:00 PM CSTElizabeth Garcia is a 50 year old female here for COVID Screening with a Nasopharyngeal Swab All droplet and contact precautions taken with appropriate PPE worn while interacting with patient. ? Goggles ? N95 Mask ? Gloves ? Gown RR 18 Pulse Ox 98% Patient educated on plan of care for visit, swabbing technique, risks and benefits of test and length of time to receive results. Verbal consent obtained to perform test. CDC Fact Sheet for Patients nCoV Diagnostic Panel dated 01/31/2020 and Factsheet What to Do if Sick with COVID 19 01/11/20 provided. Patient swabbed per appropriate nasopharyngeal technique, and patient tolerated well. Patient was discharged from the testing clinic in stable condition. Blanca Ruby MA 09/23/2020 3:12 PM Bilate nares swabbed during COVID19 nasopharyngeal swab. E OFFICER documented in this encounter Plan of Treatment Date Type Specialty Care Team Description 08/29/2021 Office Visit Neurology Addi Harris MD [address] [place] [address]. [place] [phone] Name Type Priority Associated Diagnoses Order S chedule COVID-19 (MOLECULAR LAB Routine Exposure to Expected : 09/23/2020, TESTING SARS-associated Expires: 021 NUCLEIC ACID coronavirus AMPLIFICATION) Health Maintenance Due Date Last Done Comments PNEUMOCOCCAL 0-64 YEARS COMBINED SERIES (1 of 3 - 1977 PCV13) DTaP,Tdap,and Td Vaccines (1 - Tdap) 1990 Breast Cancer Screening (MAMMOGRAM) 2011 INFLUENZA VACCINE (#1) 2020 09/17/2019 Depression Screening 01/13/2021 01/13/2020 COLON CANCER SCREENING ANNUAL FIT/FOBT 2021 5 Colorectal Cancer Screening 2021 PAP SMEAR Discontinued 05/26/2007 documented as of this encounter Results Not on filedocumented in this encounter Visit Diagnoses Diagnosis Exposure to SARS-associated coronavirus - Primary documented in this encounter Additional Health Concerns Infection Onset Date Last Indicated Resolved Time COVID-19 Rule Out 09/23/2020 09/23/2020 documented as of this encounter Insurance Payer Benefit Plan / Subscriber ID Effective Phone Address T ype Group Dates BRISSA BRUMFIELD [id number] 2014-Abimael [place] Medic [place] [facility] [place] [id number] MANAGED MEDICAID [place], [place] [phone] [id number] (Work) documented as of this encounter
--- OUTSIDE RECORDS SUMMARY | 2020-12-05 09:22 | XMS REPORT | Summary of Care ---
:1970 Author Organization [facility] Address [address] [place] [address] Care Team Providers Name Role Phone Trell Taveras Primary Care Provider Reason for Visit Reason Comments LAB WORK Auth/Cert Status Reason Specialty Diagnoses / Referred By Referred To Procedures Contact Contact Clinical Medical Adc Lab Laboratory [address] [place] [address] Encounter Details Date Type Department Care Team Description 10/10/2020 Laboratory Only [facility] Ac Okeefe MD [address] [place] [address] COVID-19 ruled out Phlebotomy Only, Adc Test (Primary Dx) Lab-[address] [phone] Allergies Active Allergy Reactions Severity Noted Date Comments Codeine Hives 09/18/2010 Morphine Hives 04/07/2007 documented as of this encounter (statuses as of 10/10/2020) Medications Medication Sig Dispensed Refills Start Date [...] Vitamin D3, (VITAMIN D3) 2,000 unit tablet [id number] Take by mouth. 0 Active ORAL fluticasone-vilanterol [...] as of this encounter (statuses as of 10/10/2020) Active Problems Problem Noted Date Pain in joint, multiple sites 09/24/2019 Chronic midline low back pain without sciatica 019 History of Crohn's disease 09/24/2019 Long-term use of high-risk medication 09/24/2019 Crohn's disease with complication 03/01/2019 Psoriasis 03/01/2019 Bipolar affective 03/01/2019 Mitral valve disorder 06/06/2007 Overview: ICD10 Diagnosis Term Show Card Letterer Utility Asthma 05/08/2007 Overview: ICD10 Diagnosis Term Show Card Letterer Utility documented as of this encounter (statuses as of 10/10/2020) Resolved Problems Problem Noted Date Resolved Date Injury to nerves 06/06/2007 03/01/2019 Overview: IN ALL LIMBS ICD10 Diagnosis Term Show Card Letterer Utility 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 documented as of this encounter Last Filed Vital Signs Not on filedocumented in this encounter Plan of Treatment Date Type Specialty Care Team Description 08/29/2021 Office Visit Neurology Addi Harris MD [address] [place], [place] [address]d. [place] [phone] Name Type Priority Associated Diagnoses Date/Ti me COVID-19 (MOLECULAR LAB Routine COVID-19 ruled out 11:46 AM INTERIOR PAINTER TESTING NUCLEIC ACID AMPLIFICATION) Name Type Priority Associated Diagnoses Order S chedule COVID-19 (MOLECULAR LAB Routine COVID-19 ruled out Ex pected: 10/10/2020, TESTING Expires: 021 NUCLEIC ACID AMPLIFICATION) Health Maintenance Due Date Last Done [...] filedocumented in this encounter Visit Diagnoses Diagnosis COVID-19 ruled out - Primary documented in this encounter Additional Health Concerns Infection Onset Date Last Indicated Resolved Time COVID-19 Rule Out 10/10/2020 10/10/2020 documented as of this encounter Insurance Payer Benefit Plan / Subscriber ID Effective Phone Address T ype Group Dates BRISSA BRUMFIELD [id number] 2014-[address] Medic [place] [id number] MA[place] MEDICAID [place], [place] (Work) documented as of this encounter
--- OUTSIDE RECORDS SUMMARY | 2020-12-05 09:22 | XMS REPORT | Summary of Care ---
:1970 Author Organization [facility] Address [address] [place] [address] Care Team Providers Name Role Phone Ed Skip Primary Care Provider Reason for Visit Reason Comments Follow-up Refill Request Encounter Details Date Type Department Care Team Description 08/29/2020 Office Visit [facility] StevenAddi Neuropathy ( Primary Dx); Neurology-Cathy Davis MD Class 2 obesity due to excess calories w ithout serious comorbidity with body mass index (BMI) of 36.0 to 36.9 in adult; [address] [place] [address] [place] [phone] Allergies Active Allergy Reactions Severity Noted Date Comments Codeine Hives 09/18/2010 Morphine Hives 04/07/2007 documented as of this encounter (statuses as of 09/06/2020) Medications Medication Sig Dispensed Refills Start End [...] Vitamin D3, (VITAMIN D3) 2,000 unit tablet [id number] Take by mouth. 0 Active [place] ORAL fluticasone-vilanter Inhale. 0 Active ol (BREO ELLIPTA) 100-25 mcg/dose DsDv terbinafine HCl 250 Take 1 tablet by 14 tablet 0 06/18/20 Active mg mouth daily. 19 tabletIndications: Tinea corporis triamcinolone Apply to 454 g 1 06/25/20 Active acetonide 0.1 % area(s) 2 (two) 19 creamIndications: times daily. Other psoriasis buPROPion XL 300 mg 0 08/10/20 Active [...] and other times daily. nonspecific skin eruption fluocinonide 0.05 % Apply to 60 mL 3 06/10/20 Active solutionIndications: area(s) 2 (two) 20 Other psoriasis, times daily. Impetiginization of other dermatoses doxepin 25 mg Take 1 capsule 30 capsule 2 06/10/20 Active capsuleIndications: by mouth at 20 Other psoriasis, bedtime. Impetiginization of other dermatoses gabapentin 100 mg Take 1 capsule 90 capsule 11 08/29/20 Active capsuleIndications: by mouth 3 20 Neuropathy (three) times daily. gabapentin 100 mg Take 1 capsule 90 capsule 11 08/18/20 Discontinued capsuleIndications: by mouth 3 19 020 (Reorder) Neuropathy (three) times daily. documented as of this encounter (statuses as of 09/06/2020) Active Problems Problem Noted Date Pain in joint, multiple sites 09/24/2019 Chronic midline low back pain without sciatica 019 History of Crohn's disease 09/24/2019 Long-term use of high-risk medication 09/24/2019 Crohn's disease with complication 03/01/2019 Psoriasis 03/01/2019 Bipolar affective 03/01/2019 Mitral valve disorder 06/06/2007 Overview: ICD10 Diagnosis Term Electric Trucker Utility Asthma 05/08/2007 Overview: ICD10 Diagnosis Term Electric Trucker Utility documented as of this encounter (statuses as of 09/06/2020) Resolved Problems Problem Noted Date Resolved Date Injury to nerves 06/06/2007 03/01/2019 Overview: IN ALL LIMBS ICD10 Diagnosis Term Electric Trucker Utility 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 documented as of this encounter Last Filed Vital Signs Vital Sign Reading Time Taken Comments Blood Pressure 124/75 08/29/2020 9:36 AM CDT Pulse 67 08/29/2020 9:36 AM CDT Temperature - - Respiratory Rate - - Oxygen Saturation 97% 08/29/2020 9:36 AM CDT Inhaled Oxygen Concentration - - Weight 81.6 kg (179 lb 12.8 oz) 08/29/2020 9:36 AM CDT Height - - Body Mass Index 35.11 11/15/2019 12:18 PM DIRECTOR EHS documented in this encounter Progress Notes Addi Harris MD - 08/29/2020 9:20 AM CDT HISTORY OF PRESENT ILLNESS: Elizabeth Garcia is a 50 year old female. Chief complaint: Medication refill. History: The patient was looking for a refill on her gabapentin. Her big issue now is that she has psoriasis which involves also her scalp and ears. She also does have Crohn's disease, she is currentlyutilizing Remicade. She was having pain involving her left side and so she does have some upcoming G.I. studies. PMH: has a past medical history of Bipolar 2 disorder, Crohn disease, Neuropathy, and Psoriasis. Current Outpatient Medications: gabapentin 100 mg capsule, Take 1 capsule by mouth 3 (three) times daily., Disp: 90 capsule, Rfl: 11 doxepin 25 mg capsule, Take 1 capsule by mouth at bedtime., Disp: 30 capsule, Rfl: 2 fluocinonide 0.05 % solution, Apply to area(s) 2 (two) times daily., Disp: 60 mL, Rfl: 3 mometasone 0.1 % lotion, Apply to area(s) 2 (two) times daily., Disp: 60 mL, Rfl: 3 nystatin-triamcinolone cream, Apply to area(s) 2 (two) times daily., Disp: 60 g, Rfl: 3 ciprofloxacin-dexamethasone 0.3-0.1 % otic drops, Place 2 Drops in both ears 2 (two) times daily., Disp: 7.5 mL, Rfl: 1 doxycycline monohydrate 100 mg capsule, Take 1 capsule by mouth 2 (two) times daily., Disp: 14 capsule, Rfl: 0 valACYclovir 1 gram tablet, Take 1 tablet by mouth 2 (two) times daily., Disp: 14 tablet, Rfl: 0 nystatin 100,000 unit/gram cream, Apply to area(s) 2 (two) times daily. Mix with triamcinoloneand apply twice a day to rash in groin, Disp: 1 lb, Rfl: 2 triamcinolone acetonide 0.1 % cream, Apply to area(s) 2 (two) times daily., Disp: 454 g, Rfl: 2 mometasone 0.1 % lotion, Apply to area(s) daily., Disp: 60 mL, Rfl: 3 ciprofloxacin-dexamethasone 0.3-0.1 % otic drops, Place 2 Drops in both ears 2 (two) times daily., Disp: 7.5 mL, Rfl: 2 Clobetasol Propionate 0.05 % shampoo, Apply to area(s) 2 (two) times daily., Disp: 118 mL, Rfl: 3 Fluocinolone Acetonide Oil (DERMOTIC OIL) 0.01 % otic drops, Place 1 Drop in each ear 2 (two) times daily., Disp: 20 mL, Rfl: 5 triamcinolone acetonide 0.1 % ointment, Apply to area(s) 2 (two) times daily., Disp: 454 g, Rfl: 5 fluocinonide 0.05 % ointment, Apply to area(s) 2 (two) times daily., Disp: 15 g, Rfl: 0 buPROPion XL 300 mg 24 hr tablet, , Disp: , Rfl: COMBIVENT RESPIMAT 20-100 mcg/actuation inhaler, , Disp: , Rfl: hydrOXYzine 25 mg capsule, , Disp: , Rfl: hydrOXYzine 25 mg tablet, TAKE 1 TABLET BY MOUTH EVERY 8 HOURS NEEDED MAY MAKE DROWSY, Disp:, Rfl: 0 hydrOXYzine 50 mg capsule, , Disp: , Rfl: nystatin-triamcinolone ointment, , Disp: , Rfl: polymyxin B sulf-trimethoprim 10,000 unit- 1 mg/mL ophthalmic drops, PUT 1 DROP INTO AFFECTED EYE 4 TIMES DAILY FOR 5 DAYS, Disp: , Rfl: 0 sulfamethoxazole-trimethoprim 800-160 mg per tablet, TAKE 1 TABLET BY MOUTH 2 TIMES DAILY WITH A GLASS OF WATER UNTIL ALL TAKEN, Disp: , Rfl: 0 triamcinolone acetonide 0.1 % cream, Apply to area(s) 2 (two) times daily., Disp: 454 g, Rfl: 1 terbinafine HCl 250 mg tablet, Take 1 tablet by mouth daily., Disp: 14 tablet, Rfl: 0 aspirin 81 mg EC tablet, Take 81 mg by mouth daily., Disp: , Rfl: BIOTIN ORAL, Take by mouth., Disp: , Rfl: EKHEHLN-LZDPBGURS-KOWV ORAL, Take by mouth., Disp: , Rfl: Cholecalciferol, Vitamin D3, (VITAMIN D3) 2,000 unit tablet, Take by mouth., Disp: , Rfl: fluticasone-vilanterol (BREO ELLIPTA) 100-25 mcg/dose DsDv, Inhale., Disp: , Rfl: ketoconazole 2 % shampoo, Apply to area(s) once daily as needed for Itching., Disp: 120 mL, Rfl: 8 albuterol (PROAIR HFA) 90 mcg/actuation inhaler, Inhale 2 Puffs every 4 (four) hours as needed for Wheezing or Shortness of Breath., Disp: 18 g, Rfl: 1 amLODIPine 5 mg tablet, , Disp: , Rfl: atorvastatin 20 mg tablet, Take 20 mg by mouth daily., Disp: , Rfl: 1 HUMIRA PEN 40 mg/0.8 mL injection, , Disp: , Rfl: FLUoxetine (PROZAC) 20 mg capsule, Take 60 mg by mouth daily., Disp: , Rfl: risperiDONE 1 mg tablet, TAKE 2 TABLETS BY MOUTH AT BEDTIME MAY MAKE DROWSY, Disp: , Rfl: 2 topiramate (TOPAMAX) 50 mg tablet, Take 50 mg by mouth 2 (two) times daily., Disp: , Rfl: PENTASA 500 MG ORAL CPSR, None Entered, Disp: 240, Rfl: 1 SINGULAIR ORAL, None Entered, Disp: , Rfl: No family history on file. Social History Socioeconomic History Marital status: Spouse name: Not on file Number of children: Not on file Years of education: Not on file Highest education level: Not on file Occupational History Not on file Social Needs Financial resource strain: Not on file Food insecurity Worry: Not on file Inability: Not on file Transportation needs Medical: Not on file Non-medical: Not on file Tobacco Use Smoking status: Never Smoker Smokeless tobacco: Never Used Substance and Sexual Activity Alcohol use: Not on file Drug use: Not on file Sexual activity: Not on file Lifestyle Physical activity Days per week: Not on file Minutes per session: Not on file Stress: Not on file Relationships Social connections Talks on phone: Not on file Gets together: Not on file Attends christianity service: Not on file Active member of club or organization: Not on file Attends meetings of clubs or organizations: Not on file Relationship status: Not on file Intimate partner violence Fear of current or ex partner: Not on file Emotionally abused: Not on file Physically abused: Not on file Forced sexual activity: Not on file Other Topics Concern Not on file Social History Narrative Not on file Vital signs: BP 124/75 (BP Location: Left arm, Patient Position: Sitting, BP CUFF SIZE: Adult Large) | Pulse 67| Wt 179 lb 12.8 oz (81.6 kg) | SpO2 97% | BMI 35.11 kg/m General findings: the patient is alert and oriented times 3, cooperative during the examination. The pupils are reactive to light. Incomplete RANULFO on left gaze, also abnormal upgaze, right eye different than the left. No visual field defect. No clear change in light and sharp touch or vibratory and proprioceptive senses. Tinel's sign negative. She can do Imuomv-dr-owsh, and heel to benedict. Intention tremor mainly with handwriting. No joint hypertrophy present. She has her scalp covered but there is obvious plaques from her psoriasis, also involving the ears and believe the fingernails. There was also some plaques on the elbow on the flexion folds. ASSESSMENT AND RECOMMENDATIONS: ICD-10-CM ICD-9-CM 1. Neuropathy G62.9 355.9 2. Class 2 obesity due to excess calories without serious comorbidity with body mass index (BMI) of 36.0 to 36.9 in adult E66.09 278.00 Z68.36 V85.36 3. Bipolar 2 disorder F31.81 296.89 Impression: In terms of the use the gabapentin, we can refill this medication, she thinks it is helping her with pain in general, and she is not on a high dose. Creation of the note was aided by utilizing a cut/paste operation of text from a Microsoft Word template created with [employer]. The text was dictated into the template via Dragon Naturally Speaking. documented in this encounter Plan of Treatment Date Type Specialty Care Team Description 08/29/2021 Office Visit Neurology Addi Harris MD [address] [place], [place] [address]. [place], [place] [phone] Health Maintenance Due Date [...] filedocumented in this encounter Visit Diagnoses Diagnosis Neuropathy - Primary Mononeuritis of unspecified site Class 2 obesity due to excess calories w ithout serious comorbidity with body mass index (BMI) of 36.0 to 36.9 in adult Bipolar 2 disorder Other bipolar disorders documented in this encounter Insurance Payer Benefit Plan / Subscriber ID Effective Phone Address T ype Group Dates BRISSA BRUMFIELD [id number] 2014-[address] Medic [place] [id number] MA[place]ID [place] (Work) documented as of this encounter"
--- OUTSIDE RECORDS SUMMARY | 2020-12-05 09:22 | XMS REPORT | Summary of Care ---
:1970 Author Organization [facility] Address [address] [place] [address] Care Team Providers Name Role Phone Ed Skip Primary Care Provider Reason for Visit Reason Comments Follow-up Refill Request Encounter Details Date Type Department Care Team Description 08/29/2020 Office Visit [facility] StevenAddi Neuropathy ( Primary Dx); Neurology-Cathy Davis MD Class 2 obesity due to excess calories w ithout serious comorbidity with body mass index (BMI) of 36.0 to 36.9 in adult; [address] [place] [address] [place] [phone] Allergies Active Allergy Reactions Severity Noted Date [...] Vitamin D3, (VITAMIN D3) 2,000 unit tablet [id number] Take by mouth. 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 Tinel's sign negative. She can do [id number], and heel to benedict. Intention tremor mainly [...] from a Microsoft Word template created with [employer]. The text was dictated into the template via Dragon Naturally Speaking. documented in this encounter Plan of Treatment Date Type Specialty Care Team Description 08/29/2021 Office Visit Neurology Addi Harris MD [address] [place], [place] [address]d. [place], [place] [phone] Health Maintenance Due Date [...] Address T ype Group Dates BRISSA BRUMFIELD [id number] [address] Medic [place] [id number] [place]GED [place] (Work) documented as of this encounter"
--- OUTSIDE RECORDS SUMMARY | 2020-12-05 09:23 | XMS REPORT | Summary of Care ---
:1970 Author Organization [facility] Address [address] [place] [address] Care Team Providers Name Role Phone Trell Taveras Primary Care Provider Reason for Visit Reason Comments LAB Exposure Cough Shortness of Breath Headache Encounter Details Date Type Department Care Team Description 10/21/2020 Laboratory Only [facility] Family Manish Jama, ADRIANA [address] [place] [address] Exposure to Medicine - [facility], Adc Fam Pob I SARS-associated [address] [facility] coronaviru s ([address] Drive Dx) [place] [phone] Allergies Active Allergy Reactions Severity Noted Date Comments Codeine Hives 09/18/2010 Morphine Hives 04/07/2007 documented as of this encounter (statuses as of 10/21/2020) Medications Medication Sig Dispensed Refills Start Date [...] Vitamin D3, (VITAMIN D3) 2,000 unit tablet [id number] Take by mouth. 0 Active ORAL fluticasone-vilanterol [...] as of this encounter (statuses as of 10/21/2020) Active Problems Problem Noted Date Pain in joint, multiple sites 09/24/2019 Chronic midline low back pain without sciatica 019 History of Crohn's disease 09/24/2019 Long-term use of high-risk medication 09/24/2019 Crohn's disease with complication 03/01/2019 Psoriasis 03/01/2019 Bipolar affective 03/01/2019 Mitral valve disorder 06/06/2007 Overview: ICD10 Diagnosis Term Tribal Delegate Utility Asthma 05/08/2007 Overview: ICD10 Diagnosis Term Tribal Delegate Utility documented as of this encounter (statuses as of 10/21/2020) Resolved Problems Problem Noted Date Resolved Date Injury to nerves 06/06/2007 03/01/2019 Overview: IN ALL LIMBS ICD10 Diagnosis Term Tribal Delegate Utility 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 0 05/08/2007 03/01/2019 Overview: Crohn's disease Depressive disorder 05/08/2007 03/01/2019 Overview: ICD10 Diagnosis Term Tribal Delegate Utility documented as of this encounter (statuses as of 10/21/2020) Immunizations Name Administration Dates Next Due Influenza Virus Vaccine 09/17/2019 Influenza Virus Vaccine Quad .5 mL IM 6+ MO 07/19/2020 documented as of this encounter Social History Tobacco Use Types Packs/Day Years Used Date Never Smoker Smokeless Tobacco: Never Used Sex Assigned at Date Recorded Not on file COVID-19 Exposure Response Date Recorded In the last month, have you been in contact with Yes 10/21/2020 3:14 PM [employer]EWEL [employer] someone who was confirmed or suspected to have Coronavirus / COVID-19? documented as of this encounter Last Filed Vital Signs Not on filedocumented in this encounter Nursing Notes Rehana Gan LVN - 10/21/2020 3:20 PM CSTElizabeth Garcia is a 50 year old female here for COVID Screening with a Nasopharyngeal Swab All droplet and contact precautions taken with appropriate PPE worn while interacting with patient. ? Goggles ? N95 Mask ? Gloves ? Gown RR 17 Pulse Ox 98% Patient educated on plan [...] from the testing clinic in stable condition. 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 [place] [phone] Name Type Priority Associated Diagnoses Order S cheduaamir COVID-19 (MOLECULAR LAB Routine Exposure to Expected : 10/21/2020, TESTING SARS-associated Expires: 021 NUCLEIC ACID coronavirus AMPLIFICATION) Health Maintenance Due Date Last Done Comments PNEUMOCOCCAL 0-64 YEARS COMBINED SERIES 1977 (1 of 3 - PCV13) DTaP,Tdap,and Td Vaccines (1 - Tdap) 1990 Breast Cancer Screening (MAMMOGRAM) 2011 Depression Screening 01/13/2021 01/13/2020 COLON CANCER SCREENING ANNUAL FIT/FOBT 2021 Colorectal Cancer Screening 2021 PAP SMEAR Discontinued 05/26/2007 INFLUENZA VACCINE Completed 07/19/2020, 09/17/2019 documented as of this encounter Results Not on filedocumented in this encounter Visit Diagnoses Diagnosis Exposure to SARS-associated coronavirus - Primary documented in this encounter Additional Health Concerns Infection Onset Date Last Indicated Resolved Time COVID-19 Rule Out 10/21/2020 10/21/2020 documented as of this encounter Insurance Payer Benefit Plan / Subscriber ID Effective Phone Address T ype Group Dates BRISSA BRUMFIELD [id number] 2014-[address] [place] Medic aid [place] [id number] MANAGED MEDICAID [place], [place] (Work) documented as of this encounter
[2020-12-05] MEDS ORDERED: INFLIXIMAB-DYYB 400 MG in NA CHLORIDE 0.9% 250 ML IV ONE (09:30)
[2020-12-05] MEDS ORDERED: HEPARIN 500 UNIT/5 ML SYR IV ONE (09:34)
[2020-12-05] MEDS ORDERED: NA CHLORIDE 0.9% 250 ML ONE (09:59)
[2020-12-05 14:01] VITALS: BMI 34.3
[2020-12-05 14:15] VITALS: BP 120/66; TEMP 96.3; O2SAT 94
== END 2020-12-05 12:20 | disposition home or self-care (01) ==
LOC: DS 09:05
PROVIDERS: ATTEND Internal Medicine Gastroenterology
DX: K50.90 Crohn's disease, unspecified, without complications (principal)
CPT/HCPCS: 96365; 96523; 96366; J1642; Q5103; J7050 ×2

== ENCOUNTER 2021-01-26 09:40 | Day surgery (SDC) | payer OTHER ==
[2021-01-26] MEDS ORDERED: INFLIXIMAB-DYYB 400 MG in NA CHLORIDE 0.9% 250 ML IV ONE (10:00)
[2021-01-26] MEDS ORDERED: LIDOCAINE 4% TOP SOLUTION ONE (10:08)
[2021-01-26] MEDS ORDERED: NA CHLORIDE 0.9% 250 ML ONE (10:32)
[2021-01-26 10:45] VITALS: BMI 33.2
[2021-01-26 12:48] VITALS: BP 120/45; TEMP 96.3; O2SAT 95
[2021-01-26] MEDS ORDERED: HEPARIN 500 UNIT/5 ML SYR IV ONE (12:57)
== END 2021-01-26 13:08 | disposition home or self-care (01) ==
LOC: DS 09:40
PROVIDERS: ATTEND Internal Medicine Gastroenterology
DX: K50.90 Crohn's disease, unspecified, without complications (principal)
CPT/HCPCS: 96365; 96523; 96366; J1642; Q5103; J7050 ×2

== ENCOUNTER 2021-02-08 15:08 | Emergency (ER) | payer OTHER ==
--- OUTSIDE RECORDS SUMMARY | 2021-02-08 15:10 | XMS REPORT | Continuity of Care Document ---
:1970 Author Organization [facility] t Address [address] [place] [address] Care Team Providers Name Role Phone Vish Craig DO Attending Clinician Tonio ZEE Attending Clinician Problems This patient has no known problems. Allergies, Adverse Reactions, Alerts This patient has no known allergies or adverse reactions. Medications This patient has no known medications. Procedures This patient has no known procedures. Encounters Start End Encounter Admission Attending Care Care Encounter Source Date/Time Date/Time Type Type Clinicians Facility Department ID 2021-02-02 2021-02-02 Patient TITO Craig [id number] 00:00:00 00:00:00 Outreach [facility] [id number] Vish [facility] [id number] [place] [id number] 2020-12-12 2020-12-12 Office TITO Elizalde [id number] 10:57:30 15:38:19 Visit [facility] [id number] [facility] [id number] [facility] [id number] [facility] Results This patient has no known results.
--- NOTE | 2021-02-08 19:15 | ER ---
Nurse's Notes [facility] Name: Elizabeth Garcia Age: 50 yrs Sex: Female : 1970 Arrival Date: 02/08/2021 Time: 15:12 Bed 19 Private MD: Diagnosis: Presentation: 02/08 15:53 Chief complaint: Patient states: Woke up this morning with my forehead swollen, eyes ca1 swollen, fern. ears hurting, neck hurting. Denies fever. Coronavirus screen: Client denies travel out of the [place] in the last 14 days. At this time, the client does not indicate any symptoms associated with coronavirus-19. Ebola Screen: Patient negative for fever greater than or equal to 101.5 degrees Fahrenheit, and additional compatible Ebola Virus Disease symptoms Patient denies exposure to infectious person. Patient denies travel to an Ebola-affected area in the 21 days before illness onset. No symptoms or risks identified at this time. Initial Sepsis Screen: Does the patient meet any 2 criteria? No. Patient's initial sepsis screen is negative. Does the patient have a suspected source of infection? No. Patient's initial sepsis screen is negative. Risk Assessment: Do you want to hurt yourself or someone else? Patient reports no desire to harm self or others. Onset of symptoms was February 08, 2021. 15:53 Method Of Arrival: Ambulatory ca1 15:53 Acuity: RAZA 3 ca1 19:12 Note Registration said she left. ca1 LOCAL ANNOUNCER: 15:53 LMP N/A - Hysterectomy ca1 Historical: - Allergies: 15:57 Codeine; ca1 15:57 Morphine; ca1 - PMHx: 15:57 Hyperlipidemia; Hypertension; kidney problems; Crohn's; Diabetes - NIDDM; ca1 - PSHx: 15:57 Hysterectomy; Cholecystectomy; intestinal resection; ca1 - Immunization history:: Client reports receiving the 1st dose of the Covid vaccine, February 01, 2021 Pneumococcal vaccine is up to date, Flu vaccine is up to date. - Social history:: Smoking status: Patient denies any tobacco usage or history of. Vital Signs: 15:53 Pulse 62; Resp 16 S; Temp 97.6(TE); Pulse Ox 100% on R/A; Weight 77.11 kg (R); Height 5 ca1 ft. 0 in. (152.40 cm); Pain 6/10; 15:53 Body Mass Index 33.20 (77.11 kg, 152.40 cm) ca1 ED Course: 15:12 Patient arrived in ED. as 15:56 Triage completed. ca1 15:57 Arm band placed on right wrist. ca1 19:12 Patient's name was called from ER lobby. No response. Unable to locate patient. Will ca1 disposition as left without being seen by a provider. Administered Medications: No medications were administered Outcome: 19:13 Patient left the ED. ca1 Signatures: Jaky Peraza Cheryl, RN RN ca1
[2021-02-08 21:05] VITALS: TEMP 97.6; O2SAT 100
== END 2021-02-08 19:13 | disposition left against medical advice (07) ==
LOC: ER 15:08
DX: R22.0 Localized swelling, mass and lump, head (principal); H92.03 Otalgia, bilateral; M54.2 Cervicalgia; Z53.21 Procedure and treatment not carried out due to patient leaving prior to being seen by health care provider; E78.5 Hyperlipidemia, unspecified; I10 Essential (primary) hypertension; K50.90 Crohn's disease, unspecified, without complications; E11.9 Type 2 diabetes mellitus without complications
CPT/HCPCS: 99281

== ENCOUNTER 2021-03-30 11:07 | Day surgery (SDC) | payer OTHER ==
[2021-03-30] MEDS ORDERED: INFLIXIMAB-DYYB 400 MG in NA CHLORIDE 0.9% 250 ML IV ONE (11:30)
[2021-03-30] MEDS ORDERED: NA CHLORIDE 0.9% 250 ML ONE (11:58)
[2021-03-30 13:38] VITALS: BMI 33.2
[2021-03-30 13:46] VITALS: O2SAT 98
[2021-03-30 14:33] VITALS: BP 114/60; TEMP 98
[2021-03-30] MEDS ORDERED: HEPARIN 500 UNIT/5 ML SYR IV ONE (14:38)
== END 2021-03-30 14:37 | disposition home or self-care (01) ==
LOC: DS 11:07
PROVIDERS: ATTEND Internal Medicine Gastroenterology
DX: K50.90 Crohn's disease, unspecified, without complications (principal)
CPT/HCPCS: 96365; 96366; J1642; Q5103; J7050 ×2

== ENCOUNTER 2021-06-06 09:59 | Day surgery (SDC) | payer OTHER ==
[2021-06-06] MEDS ORDERED: INFLIXIMAB-DYYB 400 MG in NA CHLORIDE 0.9% 250 ML IV ONE (10:15)
[2021-06-06 11:13] VITALS: O2SAT 96; BMI 4358.6
[2021-06-06] MEDS ORDERED: HEPARIN 500 UNIT/5 ML SYR IV ONE (12:45)
[2021-06-06] MEDS ORDERED: NA CHLORIDE 0.9% 250 ML ONE (13:12)
[2021-06-06 13:33] VITALS: BP 122/61; TEMP 97.4
== END 2021-06-06 13:10 | disposition home health service (06) ==
LOC: DS 09:59
PROVIDERS: ATTEND Internal Medicine Gastroenterology
DX: K50.90 Crohn's disease, unspecified, without complications (principal)
CPT/HCPCS: 96365; 96366; J1642; Q5103; J7050 ×2

== ENCOUNTER 2022-06-15 11:20 | Emergency (ER) | payer OTHER ==
[2022-06-15 12:33] LABS: Hematocrit 36.9 % (36.0-45.0); MCV 90.6 fL (80-100); MPV 7.5 fL (7.6-11.3); RBC Red Blood Cell Count 4.08 M/uL (3.86-4.86)
[2022-06-15 12:42] LABS: Urine Blood Negative (Negative); Urine Glucose Negative (Negative); Urine Protein Negative (Negative); Urine Specific Gravity 1.025 (1.005-1.030); Urine pH 6.5 (5.0-7.0)
[2022-06-15 12:50] LABS: Albumin 3.6 g/dL (3.4-5.0); Bilirubin Total 0.2 mg/dL (0.2-1.0); Potassium 3.9 mmol/L (3.5-5.1); Protein, Total 7.9 g/dL (6.4-8.2)
[2022-06-15 12:56] LABS: Urine Bacteria None Seen /HPF (<20); Urine RBC None Seen /HPF (None Seen)
--- NOTE | 2022-06-15 13:38 | RAD REPORT ---
EXAM DESCRIPTION: CTAbdomen Pelvis W Contrast - 06/15/2022 1:15 pm CLINICAL HISTORY: Abdominal pain. R flank pain radiating to RUQ COMPARISON: CT ABD PELVIS W CONTRAST dated 05/03/2009; CT ABD PELVIS W CONTRAST dated 06/06/2008 TECHNIQUE: Biphasic CT imaging of the abdomen and pelvis was performed with 100 ml non-ionic IV cont rast. All CT scans are performed using dose optimization technique as appropriate and may include automated exposure control or mA/KV adjustment according to patient size. FINDINGS: The lung bases are clear. The liver, spleen, pancreas, left adrenal gland and left kidney are within normal limits. 9 mm fatty lesion right adrenal gland likely a myelolipoma. Cholecystectomy. 6 mm stone is seen upper pole righ t kidney without hydronephrosis. No bowel obstruction, free air, free fluid or abscess. Appendectomy. No evidence of significant lym phadenopathy. Mild lumbosacral degenerative changes. IMPRESSION: 6 mm calculus in the right kidney without hydronephrosis.
[2022-06-15] MEDS ORDERED: NA CHLORIDE 0.9% 1,000 ML ONE (14:15)
[2022-06-15] MEDS ORDERED: ONDANSETRON 4 MG/2 ML VIAL ONE (14:15)
[2022-06-15] MEDS ORDERED: FENTANYL CITR 100 MCG/2 ML ONE (14:15)
--- NOTE | 2022-06-15 14:45 | ER ---
Nurse's Notes [facility] Name: Elizabeth Garcia Age: 52 yrs Sex: Female : 1970 Arrival Date: 06/15/2022 Time: 11:24 Bed DIS5 Private MD: Ele Taveras Diagnosis: Calculus of kidney Presentation: 06/15 12:05 Chief complaint: Patient states: I think I have a kidney infection , is having mid abd iw pain radiating into back , has hx of Crohns disease and has tumor on her liver, had a UTI a month ago and is unsure if it healed up, is still having pain and burning with urination. Coronavirus screen: At this time, the client does not indicate any symptoms associated with coronavirus-19. Ebola Screen: Patient negative for fever greater than or equal to 101.5 degrees Fahrenheit, and additional compatible Ebola Virus Disease symptoms Patient denies exposure to infectious person. Patient denies travel to an Ebola-affected area in the 21 days before illness onset. No symptoms or risks identified at this time. Initial Sepsis Screen: Does the patient meet any 2 criteria? No. Patient's initial sepsis screen is negative. Does the patient have a suspected source of infection? No. Patient's initial sepsis screen is negative. Risk Assessment: Do you want to hurt yourself or someone else? Patient reports no desire to harm self or others. Onset of symptoms was May 2022. 12:05 Method Of Arrival: Ambulatory iw 12:05 Acuity: RAZA 3 iw Triage Assessment: 12:15 General: Appears in no apparent distress. Behavior is calm, cooperative. iw Historical: - Allergies: 19:31 Morphine; iw 19:31 Vicodin; iw - PMHx: 12:07 Crohn's; Diabetes - NIDDM; Hypertension; kidney problems; tumor on liver; iw Hyperlipidemia; - PSHx: 12:07 carrie cath-L chest; resection; hysterectomy; iw - Immunization history:: Adult Immunizations unknown. - Social history:: Smoking status: . Screenin:23 Abuse screen: Denies threats or abuse. Denies injuries from another. Nutritional iw screening: No deficits noted. Tuberculosis screening: No symptoms or risk factors identified. Fall Risk None identified. Assessment: 12:15 General: Appears in no apparent distress. Behavior is calm, cooperative. Pain: iw Complains of pain in right upper quadrant Pain radiates to back. Neuro: Preston Agitation-Sedation Scale (RASS): Level of Consciousness is awake, alert, obeys commands, Oriented to person, place, time, situation, Moves all extremities. Full function Gait is. Cardiovascular: Patient's skin is warm and dry. Respiratory: Respiratory effort is even, unlabored, Respiratory pattern is regular, symmetrical. GI: Bowel sounds present X 4 quads. Abd is soft X 4 quads. Derm: Skin is intact, is healthy with good turgor. Musculoskeletal: Range of motion: intact in all extremities. 14:00 Reassessment: Patient appears in no apparent distress at this time. Patient and/or iw family updated on plan of care and expected duration. Pain level reassessed. Patient is alert, oriented x 3, equal unlabored respirations, skin warm/dry/pink. Vital Signs: 12:05 Resp 16; Temp 98.1; Pulse Ox 98% on R/A; Weight 69.4 kg; Height 5 ft. 0 in. (152.40 cm);iw 12:07 BP 150 / 70; Pulse 53; iw 12:05 Body Mass Index 29.88 (69.40 kg, 152.40 cm) iw ED Course: 11:24 Patient arrived in ED. mr 11:24 Ele Taveras is Private Physician. mr 11:26 Ele Shen, [facility] 11:26 Finn Hobson MD is Attending Physician. 7 12:07 Triage completed. iw 12:07 Arm band placed on. iw 12:15 Patient has correct armband on for positive identification. iw 12:24 Inserted saline lock: 22 gauge in right antecubital area, using aseptic technique. iw 13:17 CT Abd/Pelvis - IV Contrast Only In Process Unspecified. EDMS 14:04 Fabi Sarah, YVONNE is Primary Nurse. iw 14:42 Jason Lemus MD is Referral Physician. [facility] 15:23 No provider procedures requiring assistance completed. IV discontinued, intact, iw bleeding controlled, No redness/swelling at site. Pressure dressing applied. Administered Medications: 14:17 Drug: NS 0.9% 1000 ml Route: IV; Rate: 1 bolus; Site: right antecubital; iw 15:10 Follow up: IV Status: Completed infusion iw 14:17 Drug: Zofran (Ondansetron) 4 mg Route: IVP; Site: right antecubital; iw 15:00 Follow up: Response: No adverse reaction iw 14:17 Drug: fentaNYL (PF) 50 mcg Route: IVP; Site: right antecubital; iw 14:30 Follow up: Response: No adverse reaction iw 15:05 Drug: Ketorolac 30 mg Route: IVP; Site: right antecubital; iw 15:20 Follow up: Response: No adverse reaction iw Medication: 12:15 VIS not applicable for this client. iw Outcome: 14:44 Discharge ordered by MD. butler 15:23 Discharged to home ambulatory. iw 15:23 Condition: good 15:23 Discharge instructions given to patient, Instructed on discharge instructions, follow up and referral plans. medication usage, Demonstrated understanding of instructions, follow-up care, medications, Prescriptions given X 2. 15:24 Patient left the ED. iw Signatures: Dispatcher [employer] MICHELLEVA WeberAshleigh Irene, RN RN iw Ele Shen, REHAB AIDE ADRIANA [email or web address] Corrections: (The following items were deleted from the chart) 12:07 12:07 Allergies: Codeine; iw iw 19:31 12:07 Allergies: Morphine; iw iw 19:31 12:07 Allergies: Vicodin; iw iw
--- NOTE | 2022-06-15 14:45 | EDPHYS ---
Physician Documentation [facility] Name: Elizabeth Garcia Age: 52 yrs Sex: Female : 1970 Arrival Date: 06/15/2022 Time: 11:24 Bed DIS5 Private MD: Ele Taveras ED Physician Finn Hobson HPI: 06/15 12:10 This 52 yrs old Female presents to ER via Ambulatory with complaints of Urinary jh7 Problem, Abdominal Pain, Back Pain. 12:10 Onset: The symptoms/episode began/occurred 1 day(s) ago. Associated signs and symptoms: jh7 Pertinent positives: Right flank pain. 52-year-old presents with dysuria, right flank pain, and right upper quadrant pain starting yesterday. She has a history of Crohn's, liver tumor, and a UTI that was treated with Cipro 1 month ago. Reports that she is concerned that her UTI never went away. Reports that she sees Dr. Curry every 6 months to evaluate the tumor on her liver.. Historical: - Allergies: 19:31 Morphine; iw 19:31 Vicodin; iw - PMHx: 12:07 Crohn's; Diabetes - NIDDM; Hypertension; kidney problems; tumor on liver; iw Hyperlipidemia; - PSHx: 12:07 carrie cath-L chest; resection; hysterectomy; iw - Immunization history:: Adult Immunizations unknown. - Social history:: Smoking status: . ROS: 12:10 Constitutional: Negative for fever, chills, and weight loss, ENT: Negative for injury, jh7 pain, and discharge, Neck: Negative for injury, pain, and swelling, Cardiovascular: Negative for chest pain, palpitations, and edema, Respiratory: Negative for shortness of breath, cough, wheezing, and pleuritic chest pain, MS/Extremity: Negative for injury and deformity, Skin: Negative for injury, rash, and discoloration, Neuro: Negative for headache, weakness, numbness, tingling, and seizure. 12:10 Abdomen/GI: Positive for abdominal pain, Negative for nausea, vomiting, and diarrhea. 12:10 : Positive for urinary symptoms, flank pain, urinary frequency, burning with urination, Negative for hematuria, vaginal discharge. 12:10 All other systems are negative. Exam: 12:10 Constitutional: This is a well developed, well nourished patient who is awake, alert, jh7 and in no acute distress. Eyes: Pupils equal round and reactive to light, extra-ocular motions intact. Lids and lashes normal. Conjunctiva and sclera are non-icteric and not injected. Cornea within normal limits. Periorbital areas with no swelling, redness, or edema. Cardiovascular: Regular rate and rhythm with a normal S1 and S2. No gallops, murmurs, or rubs. Normal PMI, no JVD. No pulse deficits. Respiratory: Lungs have equal breath sounds bilaterally, clear to auscultation and percussion. No rales, rhonchi or wheezes noted. No increased work of breathing, no retractions or nasal flaring. Skin: Warm, dry with normal turgor. Normal color with no rashes, no lesions, and no evidence of cellulitis. Neuro: Awake and alert, GCS 15, oriented to person, place, time, and situation. Sensory grossly intact. Normal gait. 12:10 Abdomen/GI: Inspection: abdomen appears normal, Bowel sounds: normal, Palpation: soft, mild abdominal tenderness, in the right upper quadrant. 12:10 : CVA tenderness, on the right. Vital Signs: 12:05 Resp 16; Temp 98.1; Pulse Ox 98% on R/A; Weight 69.4 kg; Height 5 ft. 0 in. (152.40 cm);iw 12:07 BP 150 / 70; Pulse 53; iw 12:05 Body Mass Index 29.88 (69.40 kg, 152.40 cm) MDM: 13:43 Patient medically screened. [facility] 15:30 Differential diagnosis: UTI, pyelonephritis, nephrolithiasis. Data reviewed: [facility] signs, nurses notes, lab test result(s), radiologic studies, CT scan. Data interpreted: Pulse oximetry: is 98 %. Interpretation: normal. Counseling: I had a detailed discussion with the patient and/or guardian regarding: the historical points, exam findings, and any diagnostic results supporting the discharge/admit diagnosis, the need for outpatient follow up, a urologist, to return to the emergency department if symptoms worsen or persist or if there are any questions or concerns that arise at home. ED course: Informed her that she did have a renal stone, but that it was not obstructing and that she should be able to pass it on her own. Strongly advised her to follow-up with Dr. Lemus, urology. Advised her to take the medication as directed and to increase p.o. fluid intake. Informed her that although her urine was negative, we would prescribe her antibiotics due to her history and pending urine culture. If her symptoms worsen, or any new concerning symptoms develop, she should return to the ER for further eval.. 06/15 12:13 Order name: CBC with Diff; Complete Time: 13: [facility] 06/15 12:13 Order name: CMP; Complete Time: 13: [facility] 06/15 12:13 Order name: Lipase; Complete Time: 13: [facility] 06/15 12:13 Order name: Urine Microscopic Only; Complete Time: 13: [facility] 06/15 12:13 Order name: CT Abd/Pelvis - IV Contrast Only; Complete Time: 14:04 [facility] 06/15 12:42 Order name: Urine Dipstick-Ancillary; Complete Time: 13: [facility] 06/15 12:13 Order name: IV Saline Lock; Complete Time: 14: [facility] 06/15 12:13 Order name: Labs collected and sent; Complete Time: 14: [facility] 06/15 12:13 Order name: Urine Dipstick-Ancillary (obtain specimen); Complete Time: 14:06 [facility] Administered Medications: 14:17 Drug: NS 0.9% 1000 ml Route: IV; Rate: 1 bolus; Site: right antecubital; iw 15:10 Follow up: IV Status: Completed infusion iw 14:17 Drug: Zofran (Ondansetron) 4 mg Route: IVP; Site: right antecubital; iw 15:00 Follow up: Response: No adverse reaction iw 14:17 Drug: fentaNYL (PF) 50 mcg Route: IVP; Site: right antecubital; iw 14:30 Follow up: Response: No adverse reaction iw 15:05 Drug: Ketorolac 30 mg Route: IVP; Site: right antecubital; iw 15:20 Follow up: Response: No adverse reaction iw Disposition Summary: 06/15/22 14:44 Discharge Ordered Location: Home [facility] Problem: new [facility] Symptoms: have improved [facility] Condition: Stable [facility] Diagnosis - Calculus of kidney [facility] Followup: [facility] - With: Jason Leums MD - When: 2 - 3 days - Reason: Recheck today's complaints Discharge Instructions: - Discharge Summary Sheet 7 - Kidney Stones 7 - Renal Colic [facility] Forms: - Medication Reconciliation Form [facility] - Thank You Letter [facility] - Antibiotic Education [facility] Prescriptions: - Flomax 0.4 mg Oral capsule - take 1 capsule by ORAL route once daily 1/2 hour following the same meal each [facility] day; 10 capsule; Refills: 0, Product Selection Permitted - Cipro 500 mg Oral Tablet - take 1 tablet by ORAL route every 12 hours for 7 days; 14 tablet; Refills: 0, [facility] Product Selection Permitted Signatures: Dispatcher [employer] Fabi De La Torre RN RN Ele Shen FNP [employer]ISTH[employer] INSTRUCTOR [facility] Corrections: (The following items were deleted from the chart) 12:07 12:07 Allergies: Codeine; [facility] 16:13 12:10 This 52 yrs old Female presents to ER via Ambulatory with complaints of Urinary 7 Problem, Abdominal Pain, Back Pain. [facility] 19: 12:07 Allergies: Morphine; [facility] 19:31 12:07 Allergies: Vicodin; [facility]
[2022-06-15] MEDS ORDERED: KETOROLAC 30 MG/ML INJ ONE (15:10)
[2022-06-15 17:13] VITALS: TEMP 98.1; O2SAT 98
[2022-06-15 17:15] VITALS: BP 150/70
== END 2022-06-15 15:24 | disposition home or self-care (01) ==
LOC: ER 11:20
DX: N20.0 Calculus of kidney (principal); E11.9 Type 2 diabetes mellitus without complications; I10 Essential (primary) hypertension; Z88.5 Allergy status to narcotic agent
CPT/HCPCS: 85025; 36415; 83690; 80053; 74177; Q9967; J3010; J7030; J2405; 81003; 81015; 96361; 96374; 96375; 99284

== ENCOUNTER 2022-12-25 16:53 | Emergency (ER) | payer OTHER ==
--- OUTSIDE RECORDS SUMMARY | 2022-12-25 17:05 | XMS REPORT | Continuity of Care Document ---
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 Dose 2022-0 No Unknown 3-09 00:00: 00 Dose 2022-0 No Unknown 3-09 00:00: 00 Dose 2022-0 No Unknown 3-09 00:00: 00 Dose 2022-0 No Unknown 3-09 00:00: 00 Dose 2022-0 No Unknown 3-09 00:00: 00 Dose 2022-0 No Unknown 3-09 00:00: 00 Dose 2022-0 No Unknown 3-09 00:00: 00 Dose 2022-0 No Unknown 3-09 00:00: 00 Dose 2022-0 No Unknown 3-09 00:00: 00 Dose 2022-0 No Unknown 3-09 00:00: 00 Dose 2022-0 No Unknown 3-09 00:00: 00 Dose 2022-0 No Unknown 3-09 00:00: 00 Dose 2022-0 No Unknown 3-09 00:00: 00 Dose 2022-0 No Unknown 3-09 00:00: 00 Dose 2022-0 No Unknown 3-09 00:00: 00 Dose 2022-0 No Unknown 3-09 00:00: 00 Dose 2022-0 No Unknown 3-09 00:00: 00 Dose 2022-0 No Unknown 3-09 00:00: 00 Dose 2022-0 No Unknown 3-09 00:00: 00 Dose 2022-0 No Unknown 3-09 00:00: 00 Dose 2022-0 No Unknown 3-09 00:00: 00 Dose 2022-0 No Unknown 3-09 00:00: 00 Dose 2022-0 No Unknown 3-09 00:00: 00 Dose 2022-0 No Unknown 3-09 00:00: 00 Dose 2022-0 No Unknown 3-09 00:00: 00 Dose 2022-0 No Unknown 3-09 00:00: 00 Dose 2022-0 No Unknown 3-09 00:00: 00 Dose 2022-0 No Unknown 3-09 00:00: 00 Dose 2022-0 No Unknown 3-09 00:00: 00 Dose 2022-0 No Unknown 3-09 00:00: 00 Dose 2022-0 No Unknown 3-09 00:00: 00 Dose 2022-0 No Unknown 3-09 00:00: 00 Dose 2022-0 No Unknown 3-09 00:00: 00 Dose 2022-0 No Unknown 3-09 00:00: 00 Dose 2022-0 No Unknown 3-09 00:00: 00 Dose 2022-0 No Unknown 3-09 00:00: 00 Dose 2022-0 No Unknown 3-09 00:00: 00 Dose 2022-0 No Unknown 3-09 00:00: 00 Dose 2022-0 No Unknown 3-09 00:00: 00 Dose 2022-0 No Unknown 3-09 00:00: 00 Dose 2022-0 No Unknown 3-09 00:00: 00 Dose 2022-0 No Unknown 3-09 00:00: 00 Dose 2022-0 No Unknown 3-09 00:00: 00 Dose 2022-0 No Unknown 3-09 00:00: 00 Dose 2022-0 No Unknown 3-09 00:00: 00 Dose 2022-0 No Unknown 3-09 00:00: 00 Dose 2022-0 No Unknown 3-09 00:00: 00 Dose 2022-0 No Unknown 3-09 00:00: 00 Dose 2022-0 No Unknown 3-09 00:00: 00 Dose 2022-0 No Unknown 3-09 00:00: 00 Dose 2022-0 No Unknown 3-09 00:00: 00 Dose 2022-0 No Unknown 3-09 00:00: 00 Dose 2022-0 No Unknown 3-09 00:00: 00 Dose 2022-0 No Unknown 3-09 00:00: 00 Dose 2022-0 No Unknown 3-09 00:00: 00 Dose 2022-0 No Unknown 3-09 00:00: 00 Dose 2022-0 No Unknown 3-09 00:00: 00 Dose 2022-0 No Unknown 3-09 00:00: 00 Dose 2022-0 No Unknown 3-09 00:00: 00 Dose 2022-0 No Unknown 3-09 00:00: 00 Dose 2022-0 No Unknown 3-09 00:00: 00 Dose 2022-0 No Unknown 3-09 00:00: 00 Dose 2022-0 No Unknown 3-09 00:00: 00 Dose 2022-0 No Unknown 3-09 00:00: 00 Dose 2022-0 No Unknown 3-09 00:00: 00 Dose 2022-0 No Unknown 3-09 00:00: 00 Dose 2022-0 No Unknown 3-09 00:00: 00 Dose 2022-0 No Unknown 3-09 00:00: 00 Dose 2022-0 No Unknown 3-09 00:00: 00 Dose 2022-0 No Unknown 3-09 00:00: 00 Dose 2022-0 No Unknown 3-09 00:00: 00 Dose 2022-0 No Unknown 3-09 00:00: 00 Dose 2022-0 No Unknown 3-09 00:00: 00 Dose 2022-0 No Unknown 3-09 00:00: 00 Dose 2022-0 No Unknown 3-09 00:00: 00 Dose 2022-0 No Unknown 3-09 00:00: 00 Dose 2022-0 No Unknown 3-09 00:00: 00 Dose 2022-0 No Unknown 3-09 00:00: 00 Dose 2022-0 No Unknown 3-09 00:00: 00 Dose 2022-0 No Unknown 3-09 00:00: 00 Dose 2022-0 No Unknown 3-09 00:00: 00 Dose 2022-0 No Unknown 3-09 00:00: 00 Dose 2022-0 No Unknown 3-09 00:00: 00 Dose 2022-0 No Unknown 3-09 00:00: 00 Dose 2022-0 No Unknown 3-09 00:00: 00 Dose 2022-0 No Unknown 3-09 00:00: 00 Dose 2022-0 No Unknown 3-09 00:00: 00 Dose 2022-0 No Unknown 3-09 00:00: 00 Dose 2022-0 No Unknown 3-09 00:00: 00 Dose 2022-0 No Unknown 3-09 00:00: 00 Dose 2022-0 No Unknown 3-09 00:00: 00 Dose 2022-0 No Unknown 3-09 00:00: 00 Dose 2022-0 No Unknown 3-09 00:00: 00 Dose 2022-0 No Unknown 3-09 00:00: 00 Dose 2022-0 No Unknown 3-09 00:00: 00 Dose 2022-0 No Unknown 3-09 00:00: 00 Dose 2022-0 No Unknown 3-09 00:00: 00 Dose 2022-0 No Unknown 3-09 00:00: 00 Dose 2022-0 No Unknown 3-09 00:00: 00 Dose 2022-0 No Unknown 3-09 00:00: 00 Dose 2022-0 No Unknown 3-09 00:00: 00 Dose 2022-0 No Unknown 3-09 00:00: 00 Dose 2022-0 No Unknown 3-09 00:00: 00 Dose 2022-0 No Unknown 3-09 00:00: 00 Dose 2022-0 No Unknown 3-09 00:00: 00 Dose 2022-0 No Unknown 3-09 00:00: 00 Dose 2022-0 No Unknown 3-09 00:00: 00 Dose 2022-0 No Unknown 3-09 00:00: 00 Dose 2022-0 No Unknown 3-09 00:00: 00 Dose 2022-0 No Unknown 3-09 00:00: 00 Dose 2022-0 No Unknown 3-09 00:00: 00 Dose 2022-0 No Unknown 3-09 00:00: 00 Dose 2022-0 No Unknown 3-09 00:00: 00 Dose 2022-0 No Unknown 3-09 00:00: 00 Dose 2022-0 No Unknown 3-09 00:00: 00 Dose 2022-0 No Unknown 3-09 00:00: 00 Dose 2022-0 No Unknown 3-09 00:00: 00 Dose 2022-0 No Unknown 3-09 00:00: 00 Dose 2022-0 No Unknown 3-09 00:00: 00 Dose 2022-0 No Unknown 3-09 00:00: 00 Dose 2022-0 No Unknown 3-09 00:00: 00 Dose 2022-0 No Unknown 3-09 00:00: 00 Dose 2022-0 No Unknown 3-09 00:00: 00 Dose 2022-0 No Unknown 3-09 00:00: 00 Dose 2022-0 No Unknown 3-09 00:00: 00 Dose 2022-0 No Unknown 3-09 00:00: 00 Dose 2022-0 No Unknown 3-09 00:00: 00 Dose 2022-0 No Unknown 3-09 00:00: 00 Dose 2022-0 No Unknown 3-09 00:00: 00 Dose 2022-0 No Unknown 3-09 00:00: 00 Dose 2022-0 No Unknown 3-09 00:00: 00 Dose 2022-0 No Unknown 3-09 00:00: 00 Dose 2022-0 No Unknown 3-09 00:00: 00 Dose 2022-0 No Unknown 3-09 00:00: 00 Dose 2022-0 No Unknown 3-09 00:00: 00 Dose 2022-0 No Unknown 3-09 00:00: 00 Dose 2022-0 No Unknown 3-09 00:00: 00 Dose 2022-0 No Unknown 3-09 00:00: 00 Dose 2022-0 No Unknown 3-09 00:00: 00 Dose 2022-0 No Unknown 3-09 00:00: 00 Dose 2022-0 No Unknown 3-09 00:00: 00 Dose 2022-0 No Unknown 3-09 00:00: 00 Dose 2022-0 No Unknown 3-09 00:00: 00 Dose 2022-0 No Unknown 3-09 00:00: 00 Dose 2022-0 No Unknown 3-09 00:00: 00 Dose 2022-0 No Unknown 3-09 00:00: 00 Dose 2022-0 No Unknown 3-09 00:00: 00 Dose 2022-0 No Unknown 3-09 00:00: 00 Dose 2022-0 No Unknown 3-09 00:00: 00 Dose 2022-0 No Unknown 3-09 00:00: 00 Dose 2022-0 No Unknown 3-09 00:00: 00 Dose 2022-0 No Unknown 3-09 00:00: 00 Dose 2022-0 No Unknown 3-09 00:00: 00 Dose 2022-0 No Unknown 3-09 00:00: 00 Dose 2022-0 No Unknown 3-09 00:00: 00 Dose 2022-0 No Unknown 3-09 00:00: 00 Dose 2022-0 No Unknown 3-09 00:00: 00 Dose 2022-0 No Unknown 3-09 00:00: 00 Dose 2022-0 No Unknown 3-09 00:00: 00 Dose 2022-0 No Unknown 3-09 00:00: 00 Dose 2022-0 No Unknown 3-09 00:00: 00 Dose 2022-0 No Unknown 3-09 00:00: 00 Dose 2022-0 No Unknown 3-09 00:00: 00 Dose 2022-0 No Unknown 3-09 00:00: 00 Dose 2022-0 No Unknown 3-09 00:00: 00 Dose 2022-0 No Unknown 3-09 00:00: 00 Dose 2022-0 No Unknown 3-09 00:00: 00 Dose 2022-0 No Unknown 3-09 00:00: 00 Dose 2022-0 No Unknown 3-09 00:00: 00 Dose 2022-0 No Unknown 3-09 00:00: 00 Dose 2022-0 No Unknown 3-09 00:00: 00 Dose 2022-0 No Unknown 3-09 00:00: 00 Dose 2022-0 No Unknown 3-09 00:00: 00 Dose 2022-0 No Unknown 3-09 00:00: 00 Dose 2022-0 No Unknown 3-09 00:00: 00 Dose 2022-0 No Unknown 3-09 00:00: 00 Dose 2022-0 No Unknown 3-09 00:00: 00 Dose 2022-0 No Unknown 3-09 00:00: 00 Dose 2022-0 No Unknown 3-09 00:00: 00 Dose 2022-0 No Unknown 3-09 00:00: 00 Dose 2022-0 No Unknown 3-09 00:00: 00 Dose 2022-0 No Unknown 3-09 00:00: 00 Dose 2022-0 No Unknown 3-09 00:00: 00 Dose 2022-0 No Unknown 3-09 00:00: 00 Dose 2022-0 No Unknown 3-09 00:00: 00 Dose 2022-0 No Unknown 3-09 00:00: 00 Dose 2022-0 No Unknown 3-09 00:00: 00 Dose 2022-0 No Unknown 3-09 00:00: 00 Dose 2022-0 No Unknown 3-09 00:00: 00 Dose 2022-0 No Unknown 3-09 00:00: 00 Dose 2022-0 No Unknown 3-09 00:00: 00 Dose 2022-0 No Unknown 3-09 00:00: 00 Dose 2022-0 No Unknown 3-09 00:00: 00 Dose 2022-0 No Unknown 3-09 00:00: 00 Dose 2022-0 No Unknown 3-09 00:00: 00 Dose 2022-0 No Unknown 3-09 00:00: 00 Dose 2022-0 No Unknown 3-09 00:00: 00 Dose 2022-0 No Unknown 3-09 00:00: 00 Dose 2022-0 No Unknown 3-09 00:00: 00 Dose 2022-0 No Unknown 3-09 00:00: 00 Dose 2022-0 No Unknown 3-09 00:00: 00 Dose 2022-0 No Unknown 3-09 00:00: 00 Dose 2022-0 No Unknown 3-09 00:00: 00 Dose 2022-0 No Unknown 3-09 00:00: 00 Dose 2022-0 No Unknown 3-09 00:00: 00 Dose 2022-0 No Unknown 3-09 00:00: 00 Dose 2022-0 No Unknown 3-09 00:00: 00 Dose 2022-0 No Unknown 3-09 00:00: 00 Dose 2022-0 No Unknown 3-09 00:00: 00 Dose 2022-0 No Unknown 3-09 00:00: 00 Dose 2022-0 No Unknown 3-09 00:00: 00 Dose 2022-0 No Unknown 3-09 00:00: 00 Dose 2022-0 No Unknown 3-09 00:00: 00 Dose 2022-0 No Unknown 3-09 00:00: 00 Dose 2022-0 No Unknown 3-09 00:00: 00 Dose 2022-0 No Unknown 3-09 00:00: 00 Dose 2022-0 No Unknown 3-09 00:00: 00 Dose 2022-0 No Unknown 3-09 00:00: 00 Dose 2022-0 No Unknown 3-09 00:00: 00 Dose 2022-0 No Unknown 3-09 00:00: 00 Dose 2022-0 No Unknown 3-09 00:00: 00 Dose 2022-0 No Unknown 3-09 00:00: 00 Dose 2022-0 No Unknown 3-09 00:00: 00 Dose 2022-0 No Unknown 3-09 00:00: 00 Dose 2022-0 No Unknown 3-09 00:00: 00 Dose 2022-0 No Unknown 3-09 00:00: 00 Dose 2022-0 No Unknown 3-09 00:00: 00 Dose 2022-0 No Unknown 3-09 00:00: 00 Dose 2022-0 No Unknown 3-09 00:00: 00 Dose 2022-0 No Unknown 3-09 00:00: 00 Dose 2022-0 No Unknown 3-09 00:00: 00 Dose 2022-0 No Unknown 3-09 00:00: 00 Dose 2022-0 No Unknown 3-09 00:00: 00 Dose 2022-0 No Unknown 3-09 00:00: 00 Dose 2022-0 No Unknown 3-09 00:00: 00 Dose 2022-0 No Unknown 3-09 00:00: 00 Dose 2022-0 No Unknown 3-09 00:00: 00 Dose 2022-0 No Unknown 3-09 00:00: 00 Dose 2022-0 No Unknown 3-09 00:00: 00 Dose 2022-0 No Unknown 3-09 00:00: 00 Dose 2022-0 No Unknown 3-09 00:00: 00 Dose 2022-0 No Unknown 3-09 00:00: 00 Dose 2022-0 No Unknown 3-09 00:00: 00 Dose 2022-0 No Unknown 3-09 00:00: 00 Dose 2022-0 No Unknown 3-09 00:00: 00 Dose 2022-0 No Unknown 3-09 00:00: 00 Dose 2022-0 No Unknown 3-09 00:00: 00 Dose 2022-0 No Unknown 3-09 00:00: 00 Dose 2022-0 No Unknown 3-09 00:00: 00 Dose 2022-0 No Unknown 3-09 00:00: 00 Dose 2022-0 No Unknown 3-09 00:00: 00 Dose 2022-0 No Unknown 3-09 00:00: 00 Dose 2022-0 No Unknown 3-09 00:00: 00 Dose 2022-0 No Unknown 3-09 00:00: 00 Dose 2022-0 No Unknown 3-09 00:00: 00 Dose 2022-0 No Unknown 3-09 00:00: 00 Dose 2022-0 No Unknown 3-09 00:00: 00 Dose 2022-0 No Unknown 3-09 00:00: 00 Dose 2022-0 No Unknown 3-09 00:00: 00 Dose 2022-0 No Unknown 3-09 00:00: 00 Dose 2022-0 No Unknown 3-09 00:00: 00 Dose 2022-0 No Unknown 3-09 00:00: 00 Dose 2022-0 No Unknown 3-09 00:00: 00 Dose 2022-0 No Unknown 3-09 00:00: 00 Dose 2022-0 No Unknown 3-09 00:00: 00 Dose 2022-0 No Unknown 3-09 00:00: 00 Dose 2022-0 No Unknown 3-09 00:00: 00 Dose 2022-0 No Unknown 3-09 00:00: 00 Dose 2022-0 No Unknown 3-09 00:00: 00 Dose 2022-0 No Unknown 3-09 00:00: 00 Dose 2022-0 No Unknown 3-09 00:00: 00 Dose 2022-0 No Unknown 3-09 00:00: 00 Dose 2022-0 No Unknown 3-09 00:00: 00 Dose 2022-0 No Unknown 3-09 00:00: 00 Dose 2022-0 No Unknown 3-09 00:00: 00 Dose 2022-0 No Unknown 3-09 00:00: 00 Dose 2022-0 No Unknown 3-09 00:00: 00 Dose 2022-0 No Unknown 3-09 00:00: 00 Dose 2022-0 No Unknown 3-09 00:00: 00 Dose 2022-0 No Unknown 3-09 00:00: 00 Dose 2022-0 No Unknown 3-09 00:00: 00 Dose 2022-0 No Unknown 3-09 00:00: 00 Dose 2022-0 No Unknown 3-09 00:00: 00 Dose 2022-0 No Unknown 3-09 00:00: 00 Dose 2022-0 No Unknown 3-09 00:00: 00 Dose 2022-0 No Unknown 3-09 00:00: 00 Dose 2022-0 No Unknown 3-09 00:00: 00 Dose 2022-0 No Unknown 3-09 00:00: 00 Dose 2022-0 No Unknown 3-09 00:00: 00 Dose 2022-0 No Unknown 3-09 00:00: 00 Dose 2022-0 No Unknown 3-09 00:00: 00 Dose 2022-0 No Unknown 3-09 00:00: 00 Dose 2022-0 No Unknown 3-09 00:00: 00 Dose 2022-0 No Unknown 3-09 00:00: 00 Dose 2022-0 No Unknown 3-09 00:00: 00 Dose 2022-0 No Unknown 3-09 00:00: 00 Dose 2022-0 No Unknown 3-09 00:00: 00 Dose 2022-0 No Unknown 3-09 00:00: 00 Dose 2022-0 No Unknown 3-09 00:00: 00 Dose 2022-0 No Unknown 3-09 00:00: 00 Dose 2022-0 No Unknown 3-09 00:00: 00 Dose 2022-0 No Unknown 3-09 00:00: 00 Dose 2022-0 No Unknown 3-09 00:00: 00 Dose 2022-0 No Unknown 3-09 00:00: 00 Dose 2022-0 No Unknown 3-09 00:00: 00 Dose 2022-0 No Unknown 3-09 00:00: 00 Dose 2022-0 No Unknown 3-09 00:00: 00 Dose 2022-0 No Unknown 3-09 00:00: 00 Dose 2022-0 No Unknown 3-09 00:00: 00 Dose 2022-0 No Unknown 3-09 00:00: 00 Dose 2022-0 No Unknown 3-09 00:00: 00 Dose 2022-0 No Unknown 3-09 00:00: 00 Dose 2022-0 No Unknown 3-09 00:00: 00 Dose 2022-0 No Unknown 3-09 00:00: 00 Dose 2022-0 No Unknown 3-09 00:00: 00 Dose 2022-0 No Unknown 3-09 00:00: 00 Dose 2022-0 No Unknown 3-09 00:00: 00 Dose 2022-0 No Unknown 3-09 00:00: 00 Dose 2022-0 No Unknown 3-09 00:00: 00 Dose 2022-0 No Unknown 3-09 00:00: 00 Dose 2022-0 No Unknown 3-09 00:00: 00 Dose 2022-0 No Unknown 3-09 00:00: 00 Dose 2022-0 No Unknown 3-09 00:00: 00 Dose 2022-0 No Unknown 3-09 00:00: 00 Dose 2022-0 No Unknown 3-09 00:00: 00 Dose 2022-0 No Unknown 3-09 00:00: 00 Dose 2022-0 No Unknown 3-09 00:00: 00 Dose 2022-0 No Unknown 3-09 00:00: 00 Dose 2022-0 No Unknown 3-09 00:00: 00 Dose 2022-0 No Unknown 3-09 00:00: 00 Dose 2022-0 No Unknown 3-09 00:00: 00 Dose 2022-0 No Unknown 3-09 00:00: 00 Dose 2022-0 No Unknown 3-09 00:00: 00 Dose 2022-0 No Unknown 3-09 00:00: 00 Dose 2022-0 No Unknown 3-09 00:00: 00 Dose 2022-0 No Unknown 3-09 00:00: 00 Dose 2022-0 No Unknown 3-09 00:00: 00 Dose 2022-0 No Unknown 3-09 00:00: 00 Dose 2022-0 No Unknown 3-09 00:00: 00 Dose 2022-0 No Unknown 3-09 00:00: 00 Dose 2022-0 No Unknown 3-09 00:00: 00 Dose 2022-0 No Unknown 3-09 00:00: 00 Dose 2022-0 No Unknown 3-09 00:00: 00 Dose 2022-0 No Unknown 3-09 00:00: 00 Dose 2022-0 No Unknown 3-09 00:00: 00 Dose 2022-0 No Unknown 3-09 00:00: 00 Dose 2022-0 No Unknown 3-09 00:00: 00 Dose 2022-0 No Unknown 3-09 00:00: 00 Dose 2022-0 No Unknown 3-09 00:00: 00 Dose 2022-0 No Unknown 3-09 00:00: 00 Dose 2022-0 No Unknown 3-09 00:00: 00 Dose 2022-0 No Unknown 3-09 00:00: 00 Dose 2022-0 No Unknown 3-09 00:00: 00 Dose 2022-0 No Unknown 3-09 00:00: 00 Dose 2022-0 No Unknown 3-09 00:00: 00 Dose 2022-0 No Unknown 3-09 00:00: 00 Dose 2022-0 No Unknown 3-09 00:00: 00 Dose 2022-0 No Unknown 3-09 00:00: 00 Dose 2022-0 No Unknown 3-09 00:00: 00 Dose 2022-0 No Unknown 3-09 00:00: 00 Dose 2022-0 No Unknown 3-09 00:00: 00 Dose 2022-0 No Unknown 3-09 00:00: 00 Dose 2022-0 No Unknown 3-09 00:00: 00 Dose 2022-0 No Unknown 3-09 00:00: 00 Dose 2022-0 No Unknown 3-09 00:00: 00 Dose 2022-0 No Unknown 3-09 00:00: 00 Dose 2022-0 No Unknown 3-09 00:00: 00 Dose 2022-0 No Unknown 3-09 00:00: 00 Dose 2022-0 No Unknown 3-09 00:00: 00 Dose 2022-0 No Unknown 3-09 00:00: 00 Dose 2022-0 No Unknown 3-09 00:00: 00 Dose 2022-0 No Unknown 3-09 00:00: 00 Dose 2022-0 No Unknown 3-09 00:00: 00 Dose 2022-0 No Unknown 3-09 00:00: 00 Dose 2022-0 No Unknown 3-09 00:00: 00 Dose 2022-0 No Unknown 3-09 00:00: 00 Dose 2022-0 No Unknown 3-09 00:00: 00 Dose 2022-0 No Unknown 3-09 00:00: 00 Dose 2022-0 No Unknown 3-09 00:00: 00 Dose 2022-0 No Unknown 3-09 00:00: 00 Dose 2022-0 No Unknown 3-09 00:00: 00 Dose 2022-0 No Unknown 3-09 00:00: 00 Dose 2022-0 No Unknown 3-09 00:00: 00 Dose 2022-0 No Unknown 3-09 00:00: 00 Dose 2022-0 No Unknown 3-09 00:00: 00 Dose 2022-0 No Unknown 3-09 00:00: 00 Dose 2022-0 No Unknown 3-09 00:00: 00 Dose 2022-0 No Unknown 3-09 00:00: 00 Dose 2022-0 No Unknown 3-09 00:00: 00 Dose 2022-0 No Unknown 3-09 00:00: 00 Dose 2022-0 No Unknown 3-09 00:00: 00 Dose 2022-0 No Unknown 3-09 00:00: 00 Dose 2022-0 No Unknown 3-09 00:00: 00 Dose 2022-0 No Unknown 3-09 00:00: 00 Dose 2022-0 No Unknown 3-09 00:00: 00 Dose 2022-0 No Unknown 3-09 00:00: 00 Dose 2022-0 No Unknown 3-09 00:00: 00 Dose 2022-0 No Unknown 3-09 00:00: 00 Dose 2022-0 No Unknown 3-09 00:00: 00 Dose 2022-0 No Unknown 3-09 00:00: 00 Dose 2022-0 No Unknown 3-09 00:00: 00 Dose 2022-0 No Unknown 3-09 00:00: 00 Dose 2022-0 No Unknown 3-09 00:00: 00 Dose 2022-0 No Unknown 3-09 00:00: 00 Dose 2022-0 No Unknown 3-09 00:00: 00 Dose 2022-0 No Unknown 3-09 00:00: 00 Dose 2022-0 No Unknown 3-09 00:00: 00 Dose 2022-0 No Unknown 3-09 00:00: 00 Dose 2022-0 No Unknown 3-09 00:00: 00 Dose 2022-0 No Unknown 3-09 00:00: 00 Dose 2022-0 No Unknown 3-09 00:00: 00 Dose 2022-0 No Unknown 3-09 00:00: 00 Dose 2022-0 No Unknown 3-09 00:00: 00 Dose 2022-0 No Unknown 3-09 00:00: 00 Dose 2022-0 No Unknown 3-09 00:00: 00 Dose 2022-0 No Unknown 3-09 00:00: 00 Dose 2022-0 No Unknown 3-09 00:00: 00 Dose 2022-0 No Unknown 3-09 00:00: 00 Dose 2022-0 No Unknown 3-09 00:00: 00 Dose 2022-0 No Unknown 3-09 00:00: 00 Dose 2022-0 No Unknown 3-09 00:00: 00 Dose 2022-0 No Unknown 3-09 00:00: 00 Dose 2022-0 No Unknown 3-09 00:00: 00 Dose 2022-0 No Unknown 3-09 00:00: 00 Dose 2022-0 No Unknown 3-09 00:00: 00 Dose 2022-0 No Unknown 3-09 00:00: 00 Dose 2022-0 No Unknown 3-09 00:00: 00 Dose 2022-0 No Unknown 3-09 00:00: 00 Dose 2022-0 No Unknown 3-09 00:00: 00 Dose 2022-0 No Unknown 3-09 00:00: 00 Dose 2022-0 No Unknown 3-09 00:00: 00 Dose 2022-0 No Unknown 3-09 00:00: 00 Dose 2022-0 No Unknown 3-09 00:00: 00 Dose 2022-0 No Unknown 3-09 00:00: 00 Dose 2022-0 No Unknown 3-09 00:00: 00 Dose 2022-0 No Unknown 3-09 00:00: 00 Dose 2022-0 No Unknown 3-09 00:00: 00 Dose 2022-0 No Unknown 3-09 00:00: 00 Dose 2022-0 No Unknown 3-09 00:00: 00 Dose 2022-0 No Unknown 3-09 00:00: 00 Dose 2022-0 No Unknown 3-09 00:00: 00 Dose 2022-0 No Unknown 3-09 00:00: 00 Dose 2022-0 No Unknown 3-09 00:00: 00 Dose 2022-0 No Unknown 3-09 00:00: 00 Dose 2022-0 No Unknown 3-09 00:00: 00 Dose 2022-0 No Unknown 3-09 00:00: 00 Dose 2022-0 No Unknown 3-09 00:00: 00 Dose 2022-0 No Unknown 3-09 00:00: 00 Dose 2022-0 No Unknown 3-09 00:00: 00 Dose 2022-0 No Unknown 3-09 00:00: 00 Dose 2022-0 No Unknown 3-09 00:00: 00 Dose 2022-0 No Unknown 3-09 00:00: 00 Dose 2022-0 No Unknown 3-09 00:00: 00 Dose 2022-0 No Unknown 3-09 00:00: 00 Dose 2022-0 No Unknown 3-09 00:00: 00 Dose 2022-0 No Unknown 3-09 00:00: 00 Dose 2022-0 No Unknown 3-09 00:00: 00 Dose 2022-0 No Unknown 3-09 00:00: 00 Dose 2022-0 No Unknown 3-09 00:00: 00 Dose 2022-0 No Unknown 3-09 00:00: 00 Dose 2022-0 No Unknown 3-09 00:00: 00 Dose 2022-0 No Unknown 3-09 00:00: 00 Dose 2022-0 No Unknown 3-09 00:00: 00 Dose 2022-0 No Unknown 3-09 00:00: 00 Dose 2022-0 No Unknown 3-09 00:00: 00 Dose 2022-0 No Unknown 3-09 00:00: 00 Dose 2022-0 No Unknown 3-09 00:00: 00 Dose 2022-0 No Unknown 3-09 00:00: 00 Dose 2022-0 No Unknown 3-09 00:00: 00 Dose 2022-0 No Unknown 3-09 00:00: 00 Dose 2022-0 No Unknown 3-09 00:00: 00 Dose 2022-0 No Unknown 3-09 00:00: 00 Dose 2022-0 No Unknown 3-09 00:00: 00 Dose 2022-0 No Unknown 3-09 00:00: 00 Dose 2022-0 No Unknown 3-09 00:00: 00 Dose 2022-0 No Unknown 3-09 00:00: 00 Dose 2022-0 No Unknown 3-09 00:00: 00 Dose 2022-0 No Unknown 3-09 00:00: 00 Dose 2022-0 No Unknown 3-09 00:00: 00 Dose 2022-0 No Unknown 3-09 00:00: 00 Dose 2022-0 No Unknown 3-09 00:00: 00 Dose 2022-0 No Unknown 3-09 00:00: 00 Dose 2022-0 No Unknown 3-09 00:00: 00 Dose 2022-0 No Unknown 3-09 00:00: 00 Dose 2022-0 No Unknown 3-09 00:00: 00 Dose 2022-0 No Unknown 3-09 00:00: 00 Dose 2022-0 No Unknown 3-09 00:00: 00 Dose 2022-0 No Unknown 3-09 00:00: 00 Dose 2022-0 No Unknown 3-09 00:00: 00 Dose 2022-0 No Unknown 3-09 00:00: 00 Dose 2022-0 No Unknown 3-09 00:00: 00 Dose 2022-0 No Unknown 3-09 00:00: 00 Dose 2022-0 No Unknown 3-09 00:00: 00 Dose 2022-0 No Unknown 3-09 00:00: 00 Dose 2022-0 No Unknown 3-09 00:00: 00 Dose 2022-0 No Unknown 3-09 00:00: 00 Dose 2022-0 No Unknown 3-09 00:00: 00 Dose 2022-0 No Unknown 3-09 00:00: 00 Dose 2022-0 No Unknown 3-09 00:00: 00 Dose 2022-0 No Unknown 3-09 00:00: 00 Dose 2022-0 No Unknown 3-09 00:00: 00 Dose 2022-0 No Unknown 3-09 00:00: 00 Dose 2022-0 No Unknown 3-09 00:00: 00 Dose 2022-0 No Unknown 3-09 00:00: 00 Dose 2022-0 No Unknown 3-09 00:00: 00 Dose 2022-0 No Unknown 3-09 00:00: 00 Dose 2022-0 No Unknown 3-09 00:00: 00 Dose 2022-0 No Unknown 3-09 00:00: 00 Dose 2022-0 No Unknown 3-09 00:00: 00 Dose 2022-0 No Unknown 3-09 00:00: 00 Dose 2022-0 No Unknown 3-09 00:00: 00 Dose 2022-0 No Unknown 3-09 00:00: 00 Dose 2022-0 No Unknown 3-09 00:00: 00 Dose 2022-0 No Unknown 3-09 00:00: 00 Dose 2022-0 No Unknown 3-09 00:00: 00 Dose 2022-0 No Unknown 3-09 00:00: 00 Dose 2022-0 No Unknown 3-09 00:00: 00 Dose 2022-0 No Unknown 3-09 00:00: 00 Dose 2022-0 No Unknown 3-09 00:00: 00 Dose 2022-0 No Unknown 3-09 00:00: 00 Dose 2022-0 No Unknown 3-09 00:00: 00 Dose 2022-0 No Unknown 3-09 00:00: 00 Dose 2022-0 No Unknown 3-09 00:00: 00 Dose 2022-0 No Unknown 3-09 00:00: 00 Dose 2022-0 No Unknown 3-09 00:00: 00 Dose 2022-0 No Unknown 3-09 00:00: 00 Dose 2022-0 No Unknown 3-09 00:00: 00 Dose 2022-0 No Unknown 3-09 00:00: 00 Dose 2022-0 No Unknown 3-09 00:00: 00 Dose 2022-0 No Unknown 3-09 00:00: 00 Dose 2022-0 No Unknown 3-09 00:00: 00 Dose 2022-0 No Unknown 3-09 00:00: 00 Dose 2022-0 No Unknown 3-09 00:00: 00 Dose 2022-0 No Unknown 3-09 00:00: 00 Dose 2022-0 No Unknown 3-09 00:00: 00 Dose 2022-0 No Unknown 3-09 00:00: 00 Dose 2022-0 No Unknown 3-09 00:00: 00 tiotropium 2021-0 Yes [id number] 18ug Inhale 1 [facility] 18 mcg 1-13 capsule [facility] of inhalation 00:00: daily. [address] albuterol 2021-0 Yes [id number] 2{puff} Inhale 2 [facility] 90 1-13 Puffs ity of mcg/actuati 00:00: every 6 Kris as on inhaler 00 (six) Medical hours as Branch needed for Wheezing or Shortness of Breath. tiotropium 2021-0 Yes [id number] 18ug Inhale 1 [facility] 18 mcg 1-13 capsule ity of inhalation 00:00: daily. [address] albuterol 2021-0 Yes [id number] 2{puff} Inhale 2 [facility] 90 1-13 Puffs ity of mcg/actuati 00:00: every 6 [facility] as on inhaler 00 (six) Medical hours as Branch needed for Wheezing or Shortness of Breath. tiotropium 2021-0 Yes [id number] 18ug Inhale 1 [facility] 18 mcg 1-13 capsule ity of inhalation 00:00: daily. [place] [address] [facility] albuterol Yes [id number] 2{puff} Inhale 2 [facility] 90 1-13 Puffs ity of mcg/actuati 00:00: every 6 [facility] as on inhaler 00 (six) Medical hours as Branch needed for Wheezing or Shortness of Breath. tiotropium Yes [id number] 18ug Inhale 1 [facility] 18 mcg 1-13 capsule ity of inhalation 00:00: daily. [place] [address] [facility] albuterol Yes [id number] 2{puff} Inhale 2 [facility] 90 1-13 Puffs ity of mcg/actuati 00:00: every 6 [facility] as on inhaler 00 (six) Medical hours as Branch needed for Wheezing or Shortness of Breath. gabapentin 2021- No [id number] 100mg Take 1 [facility] 100 mg 1-05 06-14 capsule by ity of capsule 00:00: 00:00 mouth 3 [place] 00 :00 (three) Medical times Branch daily. gabapentin 2021- No [id number] 100mg Take 1 [facility] 100 mg 1-05 06-14 capsule by ity of capsule 00:00: 00:00 mouth 3 [place] 00 :00 (three) Medical times Branch daily. simvastatin 2020-11 No 1mg 20 mg 1-02 tablet 00:00: 00 simvastatin 2020-11 No 1mg 20 mg 1-02 tablet 00:00: 00 simvastatin 2020-1 No 1mg 20 mg 1-02 tablet 00:00: 00 simvastatin 2020-1 No 1mg 20 mg 1-02 tablet 00:00: 00 simvastatin 2020-1 No 1mg 20 mg 1-02 tablet 00:00: 00 simvastatin 2020-1 No 1mg 20 mg 1-02 tablet 00:00: 00 meloxicam 2020- No 1mg 15 mg 0-21 tablet 00:00: 00 metformin 2020-1 No 1mg ER 500 mg 0-21 tablet,exte 00:00: nded 00 release 24 hr meloxicam 2020- No 1mg 15 mg 0-21 tablet 00:00: 00 metformin 2020-1 No 1mg ER 500 mg 0-21 tablet,exte 00:00: nded 00 release 24 hr meloxicam 2020- No 1mg 15 mg 0-21 tablet 00:00: 00 metformin 2020-1 No 1mg ER 500 mg 0-21 tablet,exte 00:00: nded 00 release 24 hr meloxicam 2020- No 1mg 15 mg 0-21 tablet 00:00: 00 metformin 2020-1 No 1mg ER 500 mg 0-21 tablet,exte 00:00: nded 00 release 24 hr meloxicam 2020- No 1mg 15 mg 0-21 tablet 00:00: 00 metformin 2020-1 No 1mg ER 500 mg 0-21 tablet,exte 00:00: nded 00 release 24 hr meloxicam 2020- No 1mg 15 mg 0-21 tablet 00:00: 00 metformin 2020-1 No 1mg ER 500 mg 0-21 tablet,exte 00:00: nded 00 release 24 hr MELOXICAM 2020-11 Yes Take by Un[facility] rs ORAL 0-19 mouth. ity of 13:28: [address] MELOXICAM 2020-11 Yes Take by Un[facility] rs ORAL 0-19 mouth. ity of 13:28: [address] MELOXICAM 2020-11 Yes Take by Un[facility] ORAL 0-19 mouth. ity of 13:28: [address] MELOXICAM 2020-11 Yes Take by [facility] ORAL 0-19 mouth. ity of 13:28: [address] Halobetasol 2021-0 Yes [id number] Apply to [facility] Propionate 9-23 area(s) 2 ity of 0.05 % 00:00: (two) [place] ointment 00 times Medical daily. Branch clobetasoL 2020-0 Yes [id number] Apply to [facility] 0.05 % 9-23 area(s) 2 ity of external 00:00: (two) [place] solution 00 times Medical daily. For Branch scalp Halobetasol 1-0 Yes [id number] Apply to [facility] Propionate 9-23 area(s) 2 ity of 0.05 % 00:00: (two) [place] ointment 00 times Medical daily. Branch clobetasoL 1-0 Yes [id number] Apply to [facility] 0.05 % 9-23 area(s) 2 ity of external 00:00: (two) [place] solution 00 times Medical daily. For Branch scalp Halobetasol 2021-0 Yes [id number] Apply to [facility] Propionate 9-23 area(s) 2 ity of 0.05 % 00:00: (two) [place] ointment 00 times Medical daily. Branch clobetasoL 1-0 Yes [id number] Apply to [facility] 0.05 % 9-23 area(s) 2 ity of external 00:00: (two) [place] solution 00 times Medical daily. For Branch scalp Halobetasol 1-0 Yes [id number] Apply to [facility] Propionate 9-23 area(s) 2 ity of 0.05 % 00:00: (two) [place] ointment 00 times Medical daily. Branch clobetasoL 1-0 Yes [id number] Apply to [facility] 0.05 % 9-23 area(s) 2 ity of external 00:00: (two) [place] solution 00 times Medical daily. For Branch scalp hydrocortis 2020-0 No 1% one 2.5 % 8-25 topical 00:00: cream 00 hydrocortis 2020-0 No 1% one 2.5 % 8-25 topical 00:00: cream 00 hydrocortis 2020-0 No 1% one 2.5 % 8-25 topical 00:00: cream 00 hydrocortis 2020-0 No 1% one 2.5 % 8-25 topical 00:00: cream 00 hydrocortis 2020-0 No 1% one 2.5 % 8-25 topical 00:00: cream 00 hydrocortis 2020-0 No 1% one 2.5 % 8-25 topical 00:00: cream 00 clobetasoL 2020-0 Yes [id number] Apply to [facility] 0.05 % 7 area(s) 2 ity of cream 00:00: (two) [place] 00 times Medical daily. Branch Apply to scalp, ears and buttocks (avoid creases) ketoconazol 2020-0 Yes [id number] Apply to [facility] e 2 % cream 05-18 area(s) 2 ity of 00:00: (two) [place] 00 times Medical daily. Branch Apply to creases with tacrolimus (Protopic) hydrOXYzine 2020-0 Yes [id number] 25mg Take 1 U nivers 25 mg 05-18 tablet by ity of tablet 00:00: mouth at [place] 00 bedtime as Medical needed for Branch Itching. clobetasoL 2021-0 Yes [id number] Apply to [facility] 0.05 % 7-01 area(s) 2 ity of cream 00:00: (two) [place] 00 times Medical daily. Branch Apply to scalp, ears and buttocks (avoid creases) ketoconazol 202-0 Yes [id number] Apply to [facility] e 2 % cream 7-01 area(s) 2 ity of 00:00: (two) [place] 00 times Medical daily. Branch Apply to creases with tacrolimus (Protopic) hydrOXYzine 2020-0 Yes [id number] 25mg Take 1 U nivers 25 mg 7-01 tablet by ity of tablet 00:00: mouth at [place] 00 bedtime as Medical needed for Branch Itching. clobetasoL 2021-0 Yes [id number] Apply to [facility] 0.05 % 7-01 area(s) 2 ity of cream 00:00: (two) [place] 00 times Medical daily. Branch Apply to scalp, ears and buttocks (avoid creases) ketoconazol 2020-0 Yes [id number] Apply to [facility] e 2 % cream 7- area(s) 2 ity of 00:00: (two) [place] 00 times Medical daily. Branch Apply to creases with tacrolimus (Protopic) hydrOXYzine 2020-0 Yes [id number] 25mg Take 1 U nivers 25 mg 7-01 tablet by ity of tablet 00:00: mouth at [place] 00 bedtime as Medical needed for Branch Itching. clobetasoL 2021-0 Yes [id number] Apply to [facility] 0.05 % 7-01 area(s) 2 ity of cream 00:00: (two) [place] 00 times Medical daily. Branch Apply to scalp, ears and buttocks (avoid creases) ketoconazol 2021-0 Yes [id number] Apply to [facility] e 2 % cream 7-01 area(s) 2 ity of 00:00: (two) [place] 00 times Medical daily. Branch Apply to creases with tacrolimus (Protopic) hydrOXYzine 1-0 Yes [id number] 25mg Take 1 U nivers 25 mg 7-01 tablet by ity of tablet 00:00: mouth at [place] 00 bedtime as Medical needed for Branch Itching. ciprofloxac 2020-0 Yes [id number] 2[drp] Place 2 Univers in-dexameth 5-29 Drops in ity of asone 00:00: both ears [place] 0.3-0.1 % 00 2 (two) Medical otic drops times Branch daily. ciprofloxac 2020-0 Yes [id number] 2[drp] Place 2 Univers in-dexameth 5-29 Drops in ity of asone 00:00: both ears [place] 0.3-0.1 % 00 2 (two) Medical otic drops times Branch daily. ciprofloxac 2020-0 Yes [id number] 2[drp] Place 2 Univers in-dexameth 5-29 Drops in ity of asone 00:00: both ears [place] 0.3-0.1 % 00 2 (two) Medical otic drops times Branch daily. ciprofloxac 2020-0 Yes [id number] 2[drp] Place 2 Univers in-dexameth 5-29 Drops in ity of asone 00:00: both ears [place] 0.3-0.1 % 00 2 (two) Medical otic drops times Branch daily. ondansetron 0 Yes Univer s 4 mg 5-19 ity of disintegrat 00:00: [place] ing tablet 00 Medical Branch ondansetron 2020-0 Yes Univer s 4 mg 5-19 ity of disintegrat 00:00: [place] ing tablet 00 Medical Branch ondansetron 2020-0 Yes Univer s 4 mg 5-19 ity of disintegrat 00:00: [place] ing tablet 00 Medical Branch ondansetron 2020-0 Yes Univer s 4 mg 5-19 ity of disintegrat 00:00: [place] ing tablet Medical Branch omeprazole 2020-0 Yes [facility] 40 mg 5-17 ity of capsule 00:00: Medical Branch omeprazole 2020-0 Yes [facility] 40 mg 5-17 ity of capsule 00:00: [facility] omeprazole 2020-0 Yes Univers 40 mg 5-17 ity of capsule 00:00: [facility] omeprazole 2020-0 Yes Univers 40 mg 5-17 ity of capsule 00:00: [facility] hydroxyzine 2020-0 No 1mg pamoate 25 4-26 mg capsule 00:00: 00 hydroxyzine 2021-0 No 1mg pamoate 25 4-26 mg capsule 00:00: 00 hydroxyzine 2021-0 No 1mg pamoate 25 4-26 mg capsule 00:00: 00 hydroxyzine 2021-0 No 1mg pamoate 25 4-26 mg capsule 00:00: 00 hydroxyzine 2021-0 No 1mg pamoate 25 4-26 mg capsule 00:00: 00 hydroxyzine 2021-0 No 1mg pamoate 25 4-26 mg capsule 00:00: 00 metformin 2021-0 No 1mg ER 500 mg 4-22 tablet,exte 00:00: nded 00 release 24 hr metformin 2021-0 No 1mg ER 500 mg 4-22 tablet,exte 00:00: nded 00 release 24 hr metformin 2021-0 No 1mg ER 500 mg 4-22 tablet,exte 00:00: nded 00 release 24 hr metformin 2021-0 No 1mg ER 500 mg 4-22 tablet,exte 00:00: nded 00 release 24 hr metformin 2021-0 No 1mg ER 500 mg 4-22 tablet,exte 00:00: nded 00 release 24 hr metformin 2021-0 No 1mg ER 500 mg 4-22 tablet,exte 00:00: nded 00 release 24 hr epinephrine 2021-0 No 1mg/0.3 0.3 mg/0.3 4-21 mL mL 00:00: injection 00 syringe meloxicam 2021-0 No 1mg 15 mg 4-21 tablet 00:00: 00 amlodipine 2021-0 No 1mg 5 mg tablet 4-21 00:00: 00 simvastatin 2021-0 No 1mg 20 mg 4-21 tablet 00:00: 00 metformin 2021-0 No 1mg 500 mg 4-21 tablet 00:00: 00 epinephrine 2021-0 No 1mg/0.3 0.3 mg/0.3 4-21 mL mL 00:00: injection 00 syringe meloxicam 2021-0 No 1mg 15 mg 4-21 tablet 00:00: 00 amlodipine 2021-0 No 1mg 5 mg tablet 4-21 00:00: 00 epinephrine 2021-0 No 1mg/0.3 0.3 mg/0.3 4-21 mL mL 00:00: injection 00 syringe meloxicam 2021-0 No 1mg 15 mg 4-21 tablet 00:00: 00 amlodipine 2021-0 No 1mg 5 mg tablet 4-21 00:00: 00 simvastatin 2021-0 No 1mg 20 mg 4-21 tablet 00:00: 00 metformin 2021-0 No 1mg 500 mg 4-21 tablet 00:00: 00 simvastatin 2021-0 No 1mg 20 mg 4-21 tablet 00:00: 00 metformin 2021-0 No 1mg 500 mg 4-21 tablet 00:00: 00 epinephrine 2021-0 No 1mg/0.3 0.3 mg/0.3 4-21 mL mL 00:00: injection 00 syringe meloxicam 2021-0 No 1mg 15 mg 4-21 tablet 00:00: 00 amlodipine 2021-0 No 1mg 5 mg tablet 4-21 00:00: 00 simvastatin 2021-0 No 1mg 20 mg 4-21 tablet 00:00: 00 metformin 2021-0 No 1mg 500 mg 4-21 tablet 00:00: 00 epinephrine 2021-0 No 1mg/0.3 0.3 mg/0.3 4-21 mL mL 00:00: injection 00 syringe meloxicam 2021-0 No 1mg 15 mg 4-21 tablet 00:00: 00 amlodipine 2021-0 No 1mg 5 mg tablet 4-21 00:00: 00 simvastatin 2021-0 No 1mg 20 mg 4-21 tablet 00:00: 00 metformin 2021-0 No 1mg 500 mg 4-21 tablet 00:00: 00 epinephrine 2021-0 No 1mg/0.3 0.3 mg/0.3 4-21 mL mL 00:00: injection 00 syringe meloxicam 2021-0 No 1mg 15 mg 4-21 tablet 00:00: 00 amlodipine 2021-0 No 1mg 5 mg tablet 4-21 00:00: 00 simvastatin 2021-0 No 1mg 20 mg 4-21 tablet 00:00: 00 metformin 2021-0 No 1mg 500 mg 4-21 tablet 00:00: 00 epinephrine 2021-0 No 1(1.5 0.3 mg/0.3 3-23 mL) mL 00:00: injection 00 syringe epinephrine 2021-0 No 1(1.5 0.3 mg/0.3 3-23 mL) mL 00:00: injection 00 syringe epinephrine 2020-0 No 1(1.5 0.3 mg/0.3 3-23 mL) mL 00:00: injection 00 syringe epinephrine 2020-0 No 1(1.5 0.3 mg/0.3 3-23 mL) mL 00:00: injection 00 syringe epinephrine 2020-0 No 1(1.5 0.3 mg/0.3 3-23 mL) mL 00:00: injection 00 syringe epinephrine 2020-0 No 1(1.5 0.3 mg/0.3 3-23 mL) mL 00:00: injection 00 syringe hydrocortis 2020-0 Yes Apply to Un liang one 2.5 % 1-25 affected ity of cream 00:00: area(s) 2 [place] 00 (two) Medical times Branch daily. hydrocortis 2020-0 Yes Apply to Un liang one 2.5 % 1-25 affected ity of cream 00:00: area(s) 2 [place] 00 (two) Medical times Branch daily. hydrocortis 2020-0 Yes Apply to Un liang one 2.5 % 1-25 affected ity of cream 00:00: area(s) 2 [place] 00 (two) Medical times Branch daily. hydrocortis 2020-0 Yes Apply to Un liang one 2.5 % 1-25 affected ity of cream 00:00: area(s) 2 [place] [address] (two) Medical times Branch daily. erythromyci 2020-0 Yes Apply to Un liang n 5 mg/gram 1-07 right eye ity of (0.5 %) 00:00: every 6 [place] ophthalmic 00 (six) Medical ointment hours Branch erythromyci 2020-0 Yes Apply to Un liang n 5 mg/gram 1-07 right eye ity of (0.5 %) 00:00: every 6 [place] ophthalmic 00 (six) Medical ointment hours Branch erythromyci 1-0 Yes Apply to Un liang n 5 mg/gram 1-07 right eye ity of (0.5 %) 00:00: every 6 [place] ophthalmic 00 (six) Medical ointment hours Branch erythromyci 2020-0 Yes Apply to Un liang n 5 mg/gram 1-07 right eye ity of (0.5 %) 00:00: every 6 [place] ophthalmic 00 (six) Medical ointment hours Branch doxycycline 2020-0 No 1mg monohydrate 8-05 100 mg 00:00: tablet 00 Symbicort 2020-0 No 1mcg/ac 160 mcg-4.5 8-05 tuation mcg/actuati 00:00: on HFA 00 aerosol inhaler risperidone 2020-0 No 1mg 3 mg tablet 8- 00:00: 00 Prilosec 2020-0 No 1mg OTC 20 mg 8-05 tablet,wesley 00:00: yed release 00 Norvasc 5 2020-0 No 1mg mg tablet 8 00:00: 00 meloxicam 2020-0 No 1mg 15 mg 8-05 tablet 00:00: 00 Singulair 2020-0 No 1mg 10 mg 8-05 tablet 00:00: 00 Dose 2020-0 No Unknown 8-05 00:00: 00 Wellbutrin 2020-0 No 1mg SR 100 mg 8-05 tablet, 12 00:00: hr 00 sustained-r elease Topamax 100 2020-0 No 1mg mg tablet 06-22 00:00: 00 hydroxyzine 2020-0 No 1mg HCl 25 mg 8-05 tablet 00:00: 00 hydroxyzine 2020-0 No 1mg HCl 50 mg 8-05 tablet 00:00: 00 doxepin 25 2020-0 No 1mg mg capsule 8 00:00: 00 Prozac 20 2020-0 No 3mg mg capsule 8 00:00: 00 Pentasa 500 2020-0 No 2mg mg 8-05 capsule,con 00:00: trolled 00 release Prozac 20 2020-0 No 1mg mg capsule 8 00:00: 00 gabapentin 2020-0 No 1mg 100 mg 8-05 capsule 00:00: 00 fluocinonid 2020-0 No 1% e 0.05 % 8- topical 00:00: solution 00 Wellbutrin 2020-0 No 1mg SR 100 mg 8-05 tablet, 12 00:00: hr 00 sustained-r elease Topamax 100 2020-0 No 1mg mg tablet 8 00:00: 00 hydroxyzine 2020-0 No 1mg HCl 25 mg 8-05 tablet 00:00: 00 hydroxyzine 2020-0 No 1mg HCl 50 mg 8-05 tablet 00:00: 00 doxepin 25 2020-0 No 1mg mg capsule 8- 00:00: 00 Prozac 20 2020-0 No 3mg mg capsule 8-05 00:00: 00 Pentasa 500 2020-0 No 2mg mg 8-05 capsule,con 00:00: trolled 00 release Prozac 20 2020-0 No 1mg mg capsule 805 00:00: 00 gabapentin 2020-0 No 1mg 100 mg 8-05 capsule 00:00: 00 fluocinonid 2020-0 No 1% e 0.05 % 8-05 topical 00:00: solution 00 Symbicort 2020-0 No 1mcg/ac 160 mcg-4.5 8-05 tuation mcg/actuati 00:00: on HFA 00 aerosol inhaler risperidone 2020-0 No 1mg 3 mg tablet 8 00:00: 00 Prilosec 2020-0 No 1mg OTC 20 mg 8-05 tablet,wesley 00:00: yed release 00 Norvasc 5 2020-0 No 1mg mg tablet 8 00:00: 00 meloxicam 2020-0 No 1mg 15 mg 8-05 tablet 00:00: 00 Singulair 2020-0 No 1mg 10 mg 8-05 tablet 00:00: 00 Dose 2020-0 No Unknown 8-05 00:00: 00 Wellbutrin 2020-0 No 1mg SR 100 mg 8-05 tablet, 12 00:00: hr 00 sustained-r elease Topamax 100 2020-0 No 1mg mg tablet 8 00:00: 00 hydroxyzine 2020-0 No 1mg HCl 25 mg 8-05 tablet 00:00: 00 hydroxyzine 2020-0 No 1mg HCl 50 mg 8-05 tablet 00:00: 00 doxepin 25 2020-0 No 1mg mg capsule 8 00:00: 00 Prozac 20 2020-0 No 3mg mg capsule 805 00:00: 00 Pentasa 500 2020-0 No 2mg mg 8-05 capsule,con 00:00: trolled 00 release Prozac 20 2020-0 No 1mg mg capsule 805 00:00: 00 gabapentin 2020-0 No 1mg 100 mg 8-05 capsule 00:00: 00 fluocinonid 2020-0 No 1% e 0.05 % 8-05 topical 00:00: solution 00 Symbicort 2020-0 No 1mcg/ac 160 mcg-4.5 8-05 tuation mcg/actuati 00:00: on HFA 00 aerosol inhaler Symbicort 2020-0 No 1mcg/ac 160 mcg-4.5 8-05 tuation mcg/actuati 00:00: on HFA 00 aerosol inhaler risperidone 2020-0 No 1mg 3 mg tablet 805 00:00: 00 Prilosec 2020-0 No 1mg OTC 20 mg 8-05 tablet,wesley 00:00: yed release 00 Norvasc 5 2020-0 No 1mg mg tablet 8 00:00: 00 meloxicam 2020-0 No 1mg 15 mg 8-05 tablet 00:00: 00 Singulair 2020-0 No 1mg 10 mg 8-05 tablet 00:00: 00 Dose 2020-0 No Unknown 8-05 00:00: 00 Wellbutrin 2020-0 No 1mg SR 100 mg 8-05 tablet, 12 00:00: hr 00 sustained-r elease Topamax 100 2020-0 No 1mg mg tablet 8 00:00: 00 hydroxyzine 2020-0 No 1mg HCl 25 mg 8-05 tablet 00:00: 00 hydroxyzine 2020-0 No 1mg HCl 50 mg 8-05 tablet 00:00: 00 doxepin 25 2020-0 No 1mg mg capsule 8 00:00: 00 Prozac 20 2020-0 No 3mg mg capsule 805 00:00: 00 Pentasa 500 2020-0 No 2mg mg 8-05 capsule,con 00:00: trolled 00 release Prozac 20 2020-0 No 1mg mg capsule 805 00:00: 00 gabapentin 2020-0 No 1mg 100 mg 8-05 capsule 00:00: 00 fluocinonid 2020-0 No 1% e 0.05 % 8-05 topical 00:00: solution 00 risperidone 2020-0 No 1mg 3 mg tablet 805 00:00: 00 Prilosec 2020-0 No 1mg OTC 20 mg 8-05 tablet,wesley 00:00: yed release 00 Symbicort 2020-0 No 1mcg/ac 160 mcg-4.5 8-05 tuation mcg/actuati 00:00: on HFA 00 aerosol inhaler risperidone 2020-0 No 1mg 3 mg tablet 06-22 00:00: 00 Prilosec 2020-0 No 1mg OTC 20 mg 8-05 tablet,wesley 00:00: yed release 00 Norvasc 5 2020-0 No 1mg mg tablet 06-22 00:00: 00 meloxicam 2020-0 No 1mg 15 mg 8-05 tablet 00:00: 00 Singulair 2020-0 No 1mg 10 mg 8-05 tablet 00:00: 00 Dose 2020-0 No Unknown 8-05 00:00: 00 Wellbutrin 2020-0 No 1mg SR 100 mg 8-05 tablet, 12 00:00: hr 00 sustained-r elease Topamax 100 2020-0 No 1mg mg tablet 06-22 00:00: 00 hydroxyzine 2020-0 No 1mg HCl 25 mg 8-05 tablet 00:00: 00 hydroxyzine 2020-0 No 1mg HCl 50 mg 8-05 tablet 00:00: 00 doxepin 25 2020-0 No 1mg mg capsule 06-22 00:00: 00 Prozac 20 2020-0 No 3mg mg capsule 06-22 00:00: 00 Pentasa 500 2020-0 No 2mg mg 8- capsule,con 00:00: trolled 00 release Prozac 20 2020-0 No 1mg mg capsule 06-22 00:00: 00 gabapentin 2020-0 No 1mg 100 mg 8-05 capsule 00:00: 00 fluocinonid 2020-0 No 1% e 0.05 % 8- topical 00:00: solution 00 Norvasc 5 2020-0 No 1mg mg tablet 06-22 00:00: 00 meloxicam 2020-0 No 1mg 15 mg 8-05 tablet 00:00: 00 Symbicort 2020-0 No 1mcg/ac 160 mcg-4.5 8-05 tuation mcg/actuati 00:00: on HFA 00 aerosol inhaler risperidone 2020-0 No 1mg 3 mg tablet 06-22 00:00: 00 Prilosec 2020-0 No 1mg OTC 20 mg 8-05 tablet,wesley 00:00: yed release 00 Norvasc 5 2020-0 No 1mg mg tablet 8-05 00:00: 00 meloxicam 2020-0 No 1mg 15 mg 8-05 tablet 00:00: 00 Singulair 2020-0 No 1mg 10 mg 8-05 tablet 00:00: 00 Dose 2020-0 No Unknown 8-05 00:00: 00 Wellbutrin 2020-0 No 1mg SR 100 mg 8-05 tablet, 12 00:00: hr 00 sustained-r elease Topamax 100 2020-0 No 1mg mg tablet 06-22 00:00: 00 hydroxyzine 2020-0 No 1mg HCl 25 mg 8-05 tablet 00:00: 00 hydroxyzine 2020-0 No 1mg HCl 50 mg 8-05 tablet 00:00: 00 doxepin 25 2020-0 No 1mg mg capsule 8 00:00: 00 Prozac 20 2020-0 No 3mg mg capsule 06-22 00:00: 00 Pentasa 500 2020-0 No 2mg mg 8-05 capsule,con 00:00: trolled 00 release Prozac 20 2020-0 No 1mg mg capsule 06-22 00:00: 00 gabapentin 2020-0 No 1mg 100 mg 8-05 capsule 00:00: 00 fluocinonid 2020-0 No 1% e 0.05 % 8-05 topical 00:00: solution 00 Singulair 2020-0 No 1mg 10 mg 8-05 tablet 00:00: 00 nystatin-tr 2020-0 Yes [id number] Apply to [facility] iamcinolone 6-17 area(s) 2 ity of cream 00:00: (two) [place] 00 times Medical daily. Branch mometasone 2020-0 Yes [id number] Apply to Univers 0.1 % 6-17 area(s) 2 ity of lotion 00:00: (two) [place] 00 times Medical daily. Branch nystatin-tr 2020-0 Yes [id number] Apply to [facility] iamcinolone 6-17 area(s) 2 ity of cream 00:00: (two) [place] 00 times Medical daily. Branch mometasone 2020-0 Yes [id number] Apply to Univers 0.1 % 6-17 area(s) 2 ity of lotion 00:00: (two) [place] 00 times Medical daily. Branch nystatin-tr 2020-0 Yes [id number] Apply to [facility] iamcinolone 6-17 area(s) 2 ity of cream 00:00: (two) [place] 00 times Medical daily. Branch mometasone 2020-0 Yes [id number] Apply to Univers 0.1 % 6-17 area(s) 2 ity of lotion 00:00: (two) [place] 00 times Medical daily. Branch nystatin-tr 2020-0 Yes [id number] Apply to [facility] iamcinolone 6-17 area(s) 2 ity of cream 00:00: (two) [place] 00 times Medical daily. Branch mometasone 2020-0 Yes [id number] Apply to Univers 0.1 % 6-17 area(s) 2 ity of lotion 00:00: (two) [place] 00 times Medical daily. Branch mometasone 2020-0 Yes [id number] Apply to Univers 0.1 % 4-06 area(s) ity of lotion 00:00: daily. [place] Medical Branch mometasone 2020-0 Yes [id number] Apply to Univers 0.1 % 4-06 area(s) ity of lotion 00:00: daily. [place] Medical Branch mometasone 2020-0 Yes [id number] Apply to Univers 0.1 % 4-06 area(s) ity of lotion 00:00: daily. [place] [facility] Branch mometasone 2020-0 Yes [id number] Apply to Univers 0.1 % 4-06 area(s) ity of lotion 00:00: daily. [place] [address] Medical Branch ciprofloxac 2020-0 Yes [id number] 2[drp] Place 2 Univers in-dexameth 2- [id number] Drops in ity of asone 00:00: both ears [place] 0.3-0.1 % 00 2 (two) Medical otic drops times Branch daily. ciprofloxac 2020-0 Yes [id number] 2[drp] Place 2 Univers in-dexameth 2- [id number] Drops in ity of asone 00:00: both ears [place] 0.3-0.1 % 00 2 (two) Medical otic drops times Branch daily. ciprofloxac 2020-0 Yes [id number] 2[drp] Place 2 Univers in-dexameth 2- [id number] Drops in ity of asone 00:00: both ears [place] 0.3-0.1 % 00 2 (two) Medical otic drops times Branch daily. ciprofloxac 2020-0 Yes [id number] 2[drp] Place 2 Univers in-dexameth 2- [id number] Drops in ity of asone 00:00: both ears [place] 0.3-0.1 % 00 2 (two) Medical otic drops times Branch daily. Clobetasol 2020-0 Yes [id number] Apply to [facility] Propionate 2-12 area(s) 2 ity of 0.05 % 00:00: (two) [place] shampoo 00 times Medical daily. Branch Fluocinolon 2020-0 Yes [id number] 1[drp] Place 1 Univers e Acetonide 2-12 Drop in ity o f Oil 00:00: each ear 2 [place] (DERMOTIC 00 (two) Medical OIL) 0.01 % times Branch otic drops daily. Clobetasol 2020-0 Yes [id number] Apply to [facility] Propionate 2-12 area(s) 2 ity of 0.05 % 00:00: (two) [place] shampoo 00 times Medical daily. Branch Fluocinolon 2020-0 Yes [id number] 1[drp] Place 1 Univers e Acetonide 2-12 Drop in ity o f Oil 00:00: each ear 2 [place] (DERMOTIC 00 (two) Medical OIL) 0.01 % times Branch otic drops daily. Clobetasol 2020-0 Yes [id number] Apply to [facility] Propionate 2-12 area(s) 2 ity of 0.05 % 00:00: (two) [place] shampoo 00 times Medical daily. Branch Fluocinolon 2020-0 Yes [id number] 1[drp] Place 1 Univers e Acetonide 2-12 Drop in ity o f Oil 00:00: each ear 2 [place] (DERMOTIC 00 (two) Medical OIL) 0.01 % times Branch otic drops daily. Clobetasol 2020-0 Yes [id number] Apply to [facility] Propionate 2-12 area(s) 2 ity of 0.05 % 00:00: (two) [place] shampoo 00 times Medical daily. Branch Fluocinolon 2020-0 Yes [id number] 1[drp] Place 1 Univers e Acetonide 2-12 Drop in ity o f Oil 00:00: each ear 2 [place] (DERMOTIC 00 (two) Medical OIL) 0.01 % times Branch otic drops daily. SINGULAIR 2018-11 Yes None Univers ORAL 2- Entered ity of 12:18: [address] FLUoxetine 2018-11 Yes 60mg Take 60 mg U nivers (PROZAC) 20 2-29 by mouth ity of mg capsule 12:18: daily. [address] topiramate 2018-11 Yes 50mg Take 50 mg U nivers (TOPAMAX) 2-29 by mouth 2 ity of 50 mg 12:18: (two) [place] tablet 35 times Medical daily. Branch Cholecalcif 2018-11 Yes Take by Uni vers abhijeet, 2-29 mouth. ity of Vitamin D3, 12:18: [place] (VITAMIN 35 Medical D3) 2,000 Branch unit tablet fluticasone 2018-11 Yes Inhale. Uni vers -vilanterol ity of (BREO 12:18: [place] ELLIPTA) 35 Medical 100-25 Branch mcg/dose DsDv SINGULAIR 2018-11 Yes None Univers ORAL 2 Entered ity of 12:18: [address] FLUoxetine 2018-11 Yes 60mg Take 60 mg U nivers (PROZAC) 20 2-29 by mouth ity of mg capsule 12:18: daily. [address] topiramate 2018-11 Yes 50mg Take 50 mg U nivers (TOPAMAX) 2-29 by mouth 2 ity of 50 mg 12:18: (two) [place] tablet 35 times Medical daily. Branch Cholecalcif 2018-11 Yes Take by Uni vers abhijeet, -29 mouth. ity of Vitamin D3, 12:18: [place] (VITAMIN 35 Medical D3) 2,000 Branch unit tablet fluticasone 2018-11 Yes Inhale. Uni vers -vilanterol - ity of (BREO 12:18: [place] ELLIPTA) 35 Medical 100-25 Branch mcg/dose DsDv SINGULAIR 2018-11 Yes None Univers ORAL 2- Entered ity of 12:18: [address] FLUoxetine 2018-11 Yes 60mg Take 60 mg U nivers (PROZAC) 20 2-29 by mouth ity of mg capsule 12:18: daily. [address] topiramate 2018-11 Yes 50mg Take 50 mg U nivers (TOPAMAX) 2-29 by mouth 2 ity of 50 mg 12:18: (two) [place] tablet 35 times Medical daily. Branch Cholecalcif 2018-11 Yes Take by Uni vers abhijeet, 2-29 mouth. ity of Vitamin D3, 12:18: [place] (VITAMIN 35 Medical D3) 2,000 Branch unit tablet fluticasone 2018-11 Yes Inhale. Uni vers -vilanterol ity of (BREO 12:18: [place] ELLIPTA) 35 Medical 100-25 Branch mcg/dose DsDv SINGULAIR 2018-11 Yes None Univers ORAL 2-29 Entered ity of 12:18: [address] Branch FLUoxetine 2018-11 Yes 60mg Take 60 mg U nivers (PROZAC) 20 -29 by mouth ity of mg capsule 12:18: daily. [address] Branch topiramate 2018-11 Yes 50mg Take 50 mg U nivers (TOPAMAX) 29 by mouth 2 ity of 50 mg 12:18: (two) [place] tablet 35 times Medical daily. Branch Cholecalcif 2018-11 Yes Take by Uni vers abhijeet, 2-29 mouth. ity of Vitamin D3, 12:18: [place] (VITAMIN 35 Medical D3) 2,000 Branch unit tablet fluticasone 2018-11 Yes Inhale. Uni vers -vilanterol - ity of (BREO 12:18: [place] ELLIPTA) 35 Medical 100-25 Branch mcg/dose DsDv fluocinonid 2018-11 Yes [id number] Apply to Univers e 0.05 % 2-29 area(s) 2 ity of ointment 00:00: (two) [place] 00 times Medical daily. Branch fluocinonid 2018-11 Yes [id number] Apply to Univers e 0.05 % 2-29 area(s) 2 ity of ointment 00:00: (two) [place] 00 times Medical daily. Branch fluocinonid 2018-11 Yes [id number] Apply to Univers e 0.05 % 2-29 area(s) 2 ity of ointment 00:00: (two) [place] 00 times Medical daily. Branch fluocinonid 2018-11 Yes [id number] Apply to Univers e 0.05 % 2-29 area(s) 2 ity of ointment 00:00: (two) [place] 00 times Medical daily. Branch buPROPion Yes Univers XL 300 mg 9-23 ity of 24 hr 00:00: [place] tablet 00 Medical Branch buPROPion 0 Yes Univers XL 300 mg 9-23 ity of 24 hr 00:00: [place] tablet 00 Medical Branch buPROPion Yes [facility] XL 300 mg 9-23 ity of 24 hr 00:00: [place] tablet 00 Medical Branch buPROPion 0 Yes [facility] XL 300 mg 9-23 ity of 24 hr 00:00: [place] tablet 00 Medical Branch polymyxin B Yes PUT 1 DROP Univers sulf-trimet 9-10 INTO ity of hoprim 00:00: AFFECTED ,000 EYE 4 Medical unit- 1 TIMES Branch mg/mL DAILY FOR ophthalmic 5 DAYS drops polymyxin B Yes PUT 1 DROP [facility] sulf-trimet 9-10 INTO [facility]y of hoprim 00:00: AFFECTED ,000 EYE 4 Medical unit- 1 TIMES Branch mg/mL DAILY FOR ophthalmic 5 DAYS drops polymyxin B Yes PUT 1 DROP [facility] sulf-trimet 9-10 INTO [facility]y of hoprim 00:00: AFFECTED 10,000 EYE 4 Medical unit- 1 TIMES Branch mg/mL DAILY FOR ophthalmic 5 DAYS drops polymyxin B Yes PUT 1 DROP [facility] sulf-trimet 9-10 INTO [facility] of hoprim 00:00: AFFECTED 10,000 EYE 4 Medical unit- 1 TIMES Branch mg/mL DAILY FOR ophthalmic 5 DAYS drops terbinafine Yes [id number] 250mg Take 1 [facility] HCl 250 mg 8-01 tablet by [facility] of tablet 00:00: mouth daily. [facility] terbinafine Yes [id number] 250mg Take 1 [facility] HCl 250 mg 8-01 tablet by [facility] of tablet 00:00: mouth daily. [facility] terbinafine Yes [id number] 250mg Take 1 [facility] HCl 250 mg 8-01 tablet by [facility] of tablet 00:00: mouth 00 daily. [facility] terbinafine Yes [id number] 250mg Take 1 [facility] HCl 250 mg 8-01 tablet by [facility] of tablet 00:00: mouth 00 daily. Medical Branch hydrOXYzine Yes TAKE 1 Univ ers 25 mg 7-17 TABLET BY ity of tablet 00:00: MOUTH EVERY 8 Medical HOURS Branch NEEDED MAY MAKE DROWSY hydrOXYzine 2019- Yes TAKE 1 Univ ers 25 mg 7-17 TABLET BY ity of tablet 00:00: MOUTH [place] EVERY 8 Medical HOURS Branch NEEDED MAY MAKE DROWSY hydrOXYzine 2019- Yes TAKE 1 Univ ers 25 mg 7-17 TABLET BY ity of tablet 00:00: MOUTH [place] EVERY 8 Medical HOURS Branch NEEDED MAY MAKE DROWSY hydrOXYzine 2018- Yes TAKE 1 Univ ers 25 mg 7-17 TABLET BY ity of tablet 00:00: MOUTH EVERY 8 Medical HOURS Branch NEEDED MAY MAKE DROWSY amLODIPine 2017-0 Yes Univers 5 mg tablet 8- ity of 00:00: [place] [facility] amLODIPine 2017-0 Yes Univers 5 mg tablet - ity of 00:00: [place] [facility] amLODIPine 2017-0 Yes Univers 5 mg tablet - ity of 00:00: [place] [facility] amLODIPine 2017-0 Yes Univers 5 mg tablet - ity of 00:00: [place] [facility] risperiDONE 2017-0 Yes TAKE 2 Univ ers 1 mg tablet 4-08 TABLETS BY it y of 00:00: MOUTH AT [place] [address] BEDTIME Medical MAY MAKE Branch DROWSY risperiDONE 2017-0 Yes TAKE 2 Univ ers 1 mg tablet 4-08 TABLETS BY it y of 00:00: MOUTH AT [place] [address] BEDTIME Medical MAY MAKE Branch DROWSY risperiDONE 2017-0 Yes TAKE 2 Univ ers 1 mg tablet 4-08 TABLETS BY it y of 00:00: MOUTH AT [place] [address] BEDTIME Medical MAY MAKE Branch DROWSY risperiDONE 2017-0 Yes TAKE 2 Univ ers 1 mg tablet 4-08 TABLETS BY it y of 00:00: MOUTH AT [place] [address] BEDTIME Medical MAY MAKE Branch DROWSY PENTASA 500 2008-11 Yes [id number] None U nivers MG ORAL 2-14 Entered ity of CPSR 00:00: [place] [facility] PENTASA 500 2008-11 Yes [id number] None U nivers MG ORAL 2-14 Entered ity of CPSR 00:00: [place] [facility] PENTASA 500 2008-11 Yes [id number] None U nivers MG ORAL 2-14 Entered ity of CPSR 00:00: [place] [facility] PENTASA 500 2008-11 Yes [id number] None U nivers MG ORAL 2-14 Entered ity of CPSR 00:00: [place] [address] Medical Branch Immunizations Ordered Filled Immunization Date Status Comments Sour e Immunization Name Name Influenza, 2022-08-27 Completed injectable, Madin 00:00:00 [place] Canine Kidney, preservative-free, quadrivalent Influenza, 2022-08-27 Completed injectable, Madin 00:00:00 [place] Canine Kidney, preservative-free, quadrivalent Influenza, 2022-08-27 Completed injectable, Madin 00:00:00 [place] Canine Kidney, preservative-free, quadrivalent Influenza, 2022-08-27 Completed injectable, Madin 00:00:00 [place] Canine Kidney, preservative-free, quadrivalent Moderna COVID-19 2022-04-25 Completed Vaccine 00:00:00 Moderna COVID-19 2022-04-25 Completed Vaccine 00:00:00 Moderna COVID-19 2022-04-25 Completed Vaccine 00:00:00 Moderna COVID-19 2022-04-25 Completed Vaccine 00:00:00 Moderna COVID-19 2022-04-25 Completed Vaccine 00:00:00 Moderna COVID-19 2022-04-25 Completed Vaccine 00:00:00 SARS-COV-2 COVID-19 2022-04-25 Completed Unive rsity of MODERNA 0.5ML 00:00:00 [facility] BOOSTER VACCINE Branch Tdap 2022-04-24 Completed 00:00:00 Tdap 2022-04-24 Completed 00:00:00 Tdap 2022-04-24 Completed 00:00:00 Tdap 2022-04-24 Completed 00:00:00 Tdap 2022-04-24 Completed 00:00:00 Tdap 2022-04-24 Completed 00:00:00 Td 2022-04-24 Completed University of 00:00:00 [facility] Pneumococcal 2021-10-30 Completed conjugate P 00:00:00 Pneumococcal 2021-10-30 Completed conjugate P 00:00:00 Pneumococcal 2021-10-30 Completed conjugate P 00:00:00 Pneumococcal 2021-10-30 Completed conjugate P 00:00:00 Pneumococcal 2021-10-30 Completed conjugate P 00:00:00 Pneumococcal 2021-10-30 Completed conjugate P 00:00:00 SHINGRIX VACCINE 2021-10-20 Completed 00:00:00 SHINGRIX VACCINE 2021-10-20 Completed 00:00:00 SHINGRIX VACCINE 2021-10-20 Completed 00:00:00 SHINGRIX VACCINE 2021-10-20 Completed 00:00:00 SHINGRIX VACCINE 2021-10-20 Completed 00:00:00 SHINGRIX VACCINE 2021-10-20 Completed 00:00:00 Influenza Virus 2021-09-05 Completed Universit y of Vaccine Quad IM, 00:00:00 [place] [facility] Preserv and ABX Branch Free 6 MO-64 YRS Influenza Virus 2021-09-05 Completed Universit y of Vaccine Quad IM, 00:00:00 [place] [facility] Preserv and ABX Branch Free 6 MO-64 YRS Influenza Virus 2021-09-05 Completed Universit y of Vaccine Quad IM, 00:00:00 [place] Me [facility]ical Preserv and ABX Branch Free 6 MO-64 YRS Influenza Virus 2021-09-05 Completed Universit y of Vaccine Quad IM, 00:00:00 [place] [facility] Preserv and ABX Branch Free 6 MO-64 YRS Moderna COVID-19 2021-09-04 Completed Vaccine 00:00:00 Moderna COVID-19 2021-09-04 Completed Vaccine 00:00:00 Moderna COVID-19 2021-09-04 Completed Vaccine 00:00:00 Moderna COVID-19 2021-09-04 Completed Vaccine 00:00:00 Moderna COVID-19 2021-09-04 Completed Vaccine 00:00:00 Moderna COVID-19 2021-09-04 Completed Vaccine 00:00:00 SARS-COV-2 COVID-19 2021-09-04 Completed Unive rsity of MODERNA 0.5ML 00:00:00 [place] [facility] BOOSTER VACCINE Branch Moderna COVID-19 2021-02-24 Completed Vaccine 00:00:00 Moderna COVID-19 2021-02-24 Completed Vaccine 00:00:00 Moderna COVID-19 2021-02-24 Completed Vaccine 00:00:00 Moderna COVID-19 2021-02-24 Completed Vaccine 00:00:00 Moderna COVID-19 2021-02-24 Completed Vaccine 00:00:00 Moderna COVID-19 2021-02-24 Completed Vaccine 00:00:00 SARS-COV-2 COVID-19 2021-02-24 Completed Unive rsity of MODERNA VACCINE 00:00:00 [facility] ical Branch SARS-COV-2 COVID-19 2021-02-24 Completed Unive rsity of MODERNA VACCINE 00:00:00 [facility] SARS-COV-2 COVID-19 2021-02-24 Completed Unive rsity of MODERNA VACCINE 00:00:00 [facility] Branch SARS-COV-2 COVID-19 2021-02-24 Completed Unive rsity of MODERNA 12+ YRS 00:00:00 [facility] VACCINE Branch Moderna COVID-19 2021-02-01 Completed Vaccine 00:00:00 Moderna COVID-19 2021-02-01 Completed Vaccine 00:00:00 Moderna COVID-19 2021-02-01 Completed Vaccine 00:00:00 Moderna COVID-19 2021-02-01 Completed Vaccine 00:00:00 Moderna COVID-19 2021-02-01 Completed Vaccine 00:00:00 Moderna COVID-19 2021-02-01 Completed Vaccine 00:00:00 SARS-COV-2 COVID-19 2021-02-01 Completed Unive rsity of MODERNA VACCINE 00:00:00 [facility] Branch SARS-COV-2 COVID-19 2021-02-01 Completed Unive rsity of MODERNA VACCINE 00:00:00 [facility] Branch SARS-COV-2 COVID-19 2021-02-01 Completed Unive rsity of MODERNA VACCINE 00:00:00 [facility] Branch SARS-COV-2 COVID-19 2021-02-01 Completed Unive rsity of MODERNA 12+ YRS 00:00:00 [facility] VACCINE Branch Influenza Virus 2020-07-19 Completed Universit y of Vaccine Quad .5 mL 00:00:00 [facility] IM 6+ MO Branch Influenza Virus 2020-07-19 Completed Universit y of Vaccine Quad IM 3+ 00:00:00 [facility] YRS Branch Influenza Virus 2020-07-19 Completed Universit y of Vaccine Quad .5 mL 00:00:00 [place] [facility] IM 6+ MO Branch Influenza Virus 2020-07-19 Completed Universit y of Vaccine Quad IM 3+ 00:00:00 [facility] Influenza Virus 2020-07-19 Completed Universit y of Vaccine Quad .5 mL 00:00:00 [facility] 6+ MO Branch Influenza Virus 2020-07-19 Completed Universit y of Vaccine Quad IM 3+ 00:00:00 [facility] Influenza Virus 2020-07-19 Completed Universit y of Vaccine Quad .5 mL 00:00:00 [facility] 6+ MO Branch Influenza Virus 2020-07-19 Completed Universit y of Vaccine Quad IM 3+ 00:00:00 [facility] Influenza Virus 2019-09-17 Completed Universit y of Vaccine 00:00:00 [facility] Influenza Virus 2019-09-17 Completed Universit y of Vaccine 00:00:00 [facility] Influenza Virus 2019-09-17 Completed Universit y of Vaccine 00:00:00 [facility] Influenza Virus 2019-09-17 Completed Universit y of Vaccine 00:00:00 [facility] Vital Signs Vital Name Observation Time Observation Value Comments Source Systolic blood 2022-05-01 14:36:00 109 mm[Hg] Univer sity of pressure [facility] Diastolic blood 2022-05-01 14:36:00 73 mm[Hg] Unive rsity of pressure [facility] Heart rate 2022-05-01 14:36:00 87 /min [facility] Body height 2022-05-01 14:36:00 152.4 cm [facility] Body weight 2022-05-01 14:36:00 70.761 kg [facility] BMI 2022-05-01 14:36:00 30.47 kg/m2 [facility] BP Systolic 2022-08-27 16:26:00 126 mm[Hg] BP Diastolic 2022-08-27 16:26:00 77 mm[Hg] Weight Measured 2022-08-27 16:26:00 161.00 pounds Height Measured 2022-08-27 16:26:00 60.00 inches Body Temperature 2022-08-27 16:26:00 98.20 degrees Heart Rate 2022-08-27 16:26:00 57.00 /min Respiratory Rate 2022-08-27 16:26:00 BP Systolic 2022-08-07 13:30:00 109 mm[Hg] BP Diastolic 2022-08-07 13:30:00 69 mm[Hg] Weight Measured 2022-08-07 13:30:00 162.00 pounds Height Measured 2022-08-07 13:30:00 60.00 inches Body Temperature 2022-08-07 13:30:00 98.40 degrees Heart Rate 2022-08-07 13:30:00 71.00 /min Respiratory Rate 2022-08-07 13:30:00 16.00 /min BP Systolic 2021-03-13 14:33:00 118 mm[Hg] BP Diastolic 2021-03-13 14:33:00 72 mm[Hg] Weight Measured 2021-03-13 14:33:00 176.40 pounds Height Measured 2021-03-13 14:33:00 60.00 inches Body Temperature 2021-03-13 14:33:00 98.30 degrees Heart Rate 2021-03-13 14:33:00 80.00 /min Respiratory Rate 2021-03-13 14:33:00 BP Systolic 2021-02-09 11:44:00 142 mm[Hg] BP Diastolic 2021-02-09 11:44:00 79 mm[Hg] Weight Measured 2021-02-09 11:44:00 177.40 pounds Height Measured 2021-02-09 11:44:00 60.00 inches Body Temperature 2021-02-09 11:44:00 97.70 degrees Heart Rate 2021-02-09 11:44:00 68.00 /min Respiratory Rate 2021-02-09 11:44:00 16.00 /min BP Systolic 2021-02-07 13:37:00 125 mm[Hg] BP Diastolic 2021-02-07 13:37:00 78 mm[Hg] Weight Measured 2021-02-07 13:37:00 178.60 pounds Height Measured 2021-02-07 13:37:00 60.00 inches Body Temperature 2021-02-07 13:37:00 97.50 degrees Heart Rate 2021-02-07 13:37:00 66.00 /min Respiratory Rate 2021-02-07 13:37:00 Procedures Procedure Date / Time Performed Performing Clinician [facility] e EMG/NCV 2022-07-10 05:01:00 Addi Harris [facility] Plan of Care Planned Activity Planned Date Details Comments Source Goal Plan of Care Note [code = 48199-7] Goal Plan of Care Note [code = 85335-9] Goal Plan of Care Note [code = 75759-5] Goal Plan of Care Note [code = 68465-7] Goal Plan of Care Note [code = 60241-0] Goal Plan of Care Note [code = 64248-9] Goal Plan of Care Note [code = 89126-2] Goal Plan of Care Note [code = 20903-5] Goal Plan of Care Note [code = 27642-9] Goal Plan of Care Note [code = 27214-6] Goal Plan of Care Note [code = 95157-3] Goal Plan of Care Note [code = 76867-2] Goal Plan of Care Note [code = 00610-9] Goal Plan of Care Note [code = 99775-3] Goal Plan of Care Note [code = 64537-8] Goal Plan of Care Note [code = 57668-9] Goal Plan of Care Note [code = 11323-1] Goal Plan of Care Note [code = 06135-7] Goal Plan of Care Note [code = 04946-6] Goal Plan of Care Note [code = 85595-1] Goal Plan of Care Note [code = 93699-0] Goal Plan of Care Note [code = 98488-8] Goal Plan of Care Note [code = 11673-8] Goal Plan of Care Note [code = 91569-9] Goal Plan of Care Note [code = 83207-6] Goal Plan of Care Note [code = 02466-5] Goal Plan of Care Note [code = 17967-3] Goal Plan of Care Note [code = 54591-9] Goal Plan of Care Note [code = 55073-6] Goal Plan of Care Note [code = 74831-5] Goal Plan of Care Note [code = 07131-8] Goal Plan of Care Note [code = 19859-6] Goal Plan of Care Note [code = 62385-1] Goal Plan of Care Note [code = 92349-9] Goal Plan of Care Note [code = 09163-5] Goal Plan of Care Note [code = 56357-8] Goal Plan of Care Note [code = 70307-1] Goal Plan of Care Note [code = 85224-8] Goal Plan of Care Note [code = 74524-6] Goal Plan of Care Note [code = 76227-1] Goal Plan of Care Note [code = 26109-6] Goal Plan of Care Note [code = 11560-0] Goal Plan of Care Note [code = 48821-8] Goal Plan of Care Note [code = 04988-9] Goal Plan of Care Note [code = 81654-8] Goal Plan of Care Note [code = 58090-8] Goal Plan of Care Note [code = 94226-6] Goal Plan of Care Note [code = 60071-5] Goal Plan of Care Note [code = 29037-1] Goal Plan of Care Note [code = 09753-7] Goal Plan of Care Note [code = 47463-0] Goal Plan of Care Note [code = 35847-8] Goal Plan of Care Note [code = 81329-8] Goal Plan of Care Note [code = 99906-1] Goal Plan of Care Note [code = 98477-1] Goal Plan of Care Note [code = 11356-9] Goal Plan of Care Note [code = 10009-5] Goal Plan of Care Note [code = 99231-1] Goal Plan of Care Note [code = 53781-9] Goal Plan of Care Note [code = 64743-4] Goal Plan of Care Note [code = 13193-6] Goal Plan of Care Note [code = 53459-4] Goal Plan of Care Note [code = 08432-1] Goal Plan of Care Note [code = 77990-2] Goal Plan of Care Note [code = 72115-9] Goal Plan of Care Note [code = 31398-7] Goal Plan of Care Note [code = 56440-8] Goal Plan of Care Note [code = 72572-3] Goal Plan of Care Note [code = 75113-8] Goal Plan of Care Note [code = 12368-5] Goal Plan of Care Note [code = 16286-1] Goal Plan of Care Note [code = 92224-6] Goal Plan of Care Note [code = 69176-5] Goal Plan of Care Note [code = 89078-0] Goal Plan of Care Note [code = 84053-5] Goal Plan of Care Note [code = 73156-2] Goal Plan of Care Note [code = 75337-7] Goal Plan of Care Note [code = 86925-3] Goal Plan of Care Note [code = 60408-0] Goal Plan of Care Note [code = 94892-4] Goal Plan of Care Note [code = 54312-9] Goal Plan of Care Note [code = 59339-3] Goal Plan of Care Note [code = 47831-1] Goal Plan of Care Note [code = 40052-5] Goal Plan of Care Note [code = 34967-2] Goal Plan of Care Note [code = 88394-8] Goal Plan of Care Note [code = 35073-5] Goal Plan of Care Note [code = 41244-6] Goal Plan of Care Note [code = 21844-6] Goal Plan of Care Note [code = 00231-4] Goal Plan of Care Note [code = 74214-9] Goal Plan of Care Note [code = 46851-3] Goal Plan of Care Note [code = 78127-7] Goal Plan of Care Note [code = 69634-4] Goal Plan of Care Note [code = 36962-7] Goal Plan of Care Note [code = 23457-7] Goal Plan of Care Note [code = 53383-2] Goal Plan of Care Note [code = 23063-6] Goal Plan of Care Note [code = 84368-5] Goal Plan of Care Note [code = 35519-0] Goal Plan of Care Note [code = 15122-4] Goal Plan of Care Note [code = 04301-2] Goal Plan of Care Note [code = 19834-2] Goal Plan of Care Note [code = 85347-8] Goal Plan of Care Note [code = 55852-8] Encounters Start End Encounter Admission Attending Care Care Encounter Source Date/Time Date/Time Type Type Clinicians Facility Department ID 2022-02-20 Outpatient [facility] [id number] Common 14:52:01 [facility] 2022-10-22 2022-10-22 Outpatient R RADIOLOGY [facility] [id number] Univers 11:24:49 23:59:00 ity of [facility] 2022-10-22 2022-10-22 Hospital Radiology [facility] 1.2.840.114 [id number] Univers 11:24:49 23:59:00 Encounter MIKHAIL 350.1.13.10 itkamila [facility] 4.2.7.2.686 Jony [facility] [id number] [place] [id number] [place] 2022-10-22 2022-10-22 Outpatient SFA SFA [id number] Alexx 10:36:41 10:36:41 1205 F Reji 2022-10-10 2022-10-10 Outpatient SFA SFA [id number] Alexx 17:13:07 17:13:07 1123 F Reji 2022-09-08 2022-09-08 Outpatient SFA SFA [id number] Alexx 11:17:00 11:17:00 1022 F Reji 2022-09-08 2022-09-08 Outpatient [id number] 5070m7-d 00:00:00 00:00:00 Visit dba7-4f9b ba7-4f9b-9 -9aca-f03 josef-v9237t 34cx0x9vw b8e2bf 2022-09-05 2022-09-05 Outpatient R KATIA, [facility] [id number] Univers 13:00:00 13:00:00 SUNITA arrington [facility] 2022-08-28 2022-08-28 Outpatient SFA SFA [id number] Alexx 08:17:17 08:17:17 1011 F Reji 2022-08-27 2022-08-27 Outpatient SFA SFA [id number] Alexx 16:22:19 16:22:19 1010 F Reji 2022-08-27 2022-08-27 Outpatient [id number] 88v229-1 00:00:00 00:00:00 Visit 4ada-406a ada-406a-8 -8ece-a29 kristin-a299bc 5fo17a3tr 86a1bf 2022-08-14 2022-08-14 Outpatient [id number] 2wy136-f 00:00:00 00:00:00 Visit cbd0-4793 bd0-4793-8 -81y3-07v 9v4-85mwb5 hd8v3ozzm c1fced 2022-08-07 2022-08-07 Outpatient o5yrbwf1- [id number] [id number] bedad8-5 00:00:00 00:00:00 Visit 537f-428c 37f-428c-a -e82e-ly6 34f-eb8a4c s5xs4w1jb f9a7cd 2022-08-06 2022-08-06 Outpatient [id number]- [id number] 7d c30m55-8 00:00:00 00:00:00 Visit 9616-4f16 616-4f16-9 -18r2-q0j 7m4-m9i16e 32d4j0906 5w3498 2022-07-18 2022-07-18 Outpatient [id number]- [id number] 1b l4b7m9-n 00:00:00 00:00:00 Visit c66y-8om1 25e-4ea4-8 -8ov5-z7z ae9-s4y561 251qjzo2p dbec3a 2022-07-10 2022-07-10 Outpatient Manjit SUGGS [facility] [id number] Univers 10:17:04 23:59:00 [facility] 2022-07-10 2022-07-10 [facility] [id number] [id number] Univers 10:17:04 23:59:00 Encounter Em[address] [facility] 350.1.13.10 ity of [place] 4.2.7.2.686 [facility] [id number] [address] OFFICE BUILDING 2022-06-01 2022-06-01 Outpatient ADDI GRAJEDA [facility] [id number] Univers 10:00:00 10:00:00 ADDI HARRIS [facility] 2022-05-01 2022-05-01 Outpatient ADDI GRAJEDA [facility] [id number] Univers 09:40:00 10:07:03 ADDI HARRIS [facility] 2022-05-01 2022-05-01 Office Steven [facility] 1.2.840.114 [id number] Univers 09:40:00 10:07:03 Visit [facility] 350.1.13.10 ity of [place] 4.2.7.2.686 Kris as RODRIGO?BLEA [phone] Nm mu [place] [address] [place] MEDICAL OFFICE BUILDING 2022-02-02 2022-02-02 Office Matt [facility] 1.2.840.114 [id number] Univers 11:30:00 12:00:00 Visit Johanna ELIZONDO 350.1.13.10 i ty of [facility] 4.2.7.2.[place] [phone] Nm mu DUNLAP 085 [facility] 2022-02-02 2022-02-02 Outpatient R JOHANNA NARANJO [facility] [id number] Univers 11:30:00 11:30:00 JOHANNA NARANJO i ty of [facility] 2022-01-16 2022-01-16 [facility] [id number] Univers 15:15:00 17:01:34 ALFONZO ity of [facility] 2022-01-16 2022-01-16 Ancillary Wilbur Leyva [facility] 1.2.840. 114 [id number] Univers 15:15:00 17:01:34 Visit Alfonzo Badleras 350.1.13.10 ity of NATIONAL 4.2.7.2.686 Kris as BANK [phone] [facility]. [address] [place] 2022-01-16 2022-01-16 [facility] [id number] Univers 15:00:00 16:12:50 ALFONZO ity of [facility] 2022-01-16 2022-01-16 Office TandidialexandraMARIA ALEJANDRA 1.2.840.114 [id number] Univers 15:00:00 16:12:50 Visit Alfonzo Gaona 350.1.13.10 it y of [place] 4.2.7.2.686 Kris as BANK [phone] [facility] [address] [place] 2022-01-16 2022-01-16 Orders Doctor TYLER 1.2.840.114 [id number] Univers 00:00:00 00:00:00 Only Unassigned, RIKKI 350.1.13.10 ity of [place] [facility] 4.2.7.2.686 Kris as [phone] [facility] [address] [place] 2021-11-30 2021-11-30 [facility] 1.2.840.114 [id number] Univers 12:13:29 23:59:00 Encounter Johanna MI[place]HAIL 350.1.13.10 ity [place] [id number] [facility] [address] [place] 2021-11-30 2021-11-30 Technology Methodology Consultant Pranav, Adc Lab Main [facility] 1.2.8 40.114 [id number] Univers 12:15:00 12:30:00 Visit Matt Johanna ELIZONDO 350.1.13.10 [place]y [place] [phone] Nm dical NAL 353 [facility] 2021-11-30 2021-11-30 Outpatient R JOHANNA NARANJO [facility] [id number] Univers 12:15:00 12:15:00 JOHANNA NARANJO i ty of [facility] 2021-11-30 2021-11-30 Outpatient R JOHANNA NARANJO [facility] [id number] Univers 11:30:00 11:58:43 JOHANNA NARANJO i ty [facility] 2021-11-30 2021-11-30 Office [facility] 1.2.840.114 [id number] Univers 11:30:00 11:58:43 Visit Johanna ELIZONDO 350.1.13.10 i ty [place] [phone] Nm dical NAL 085 [facility] 2021-11-21 2021-11-21 Telephone [facility] 1.2.840.114 [id number] Univers 00:00:00 00:00:00 [facility] 350.1.13.10 ity of [place] 4.2.7.2.686 Kris as RODRIGO?BLEA [phone] Nm dical KNEY 0[address] [facility] OFFICE BUILDING 2021-09-13 2021-09-13 Telephone Enmanuel [facility] 1.2.604.755 [id number] Univers 00:00:00 00:00:00 Krish MULTISPEC 350.1.13.10 ity of [place].2.[place] [id number] [facility] [address] [place] [facility] 2021-09-05 2021-09-05 Office Katia [facility] 1.2.914.119 [id number] Univers 13:10:16 13:54:57 Visit Sunita Elizondo 350.1.13.10 i ty [place].2.[place] [phone] Nm dic[address] 2021-09-05 2021-09-05 Outpatient R KATIA [facility] [id number] Univers 13:00:00 13:00:00 SUNITA arrington [facility] 2021-09-05 2021-09-05 Office Steven [facility] 1.2.840.114 [id number] Univers 10:48:21 11:26:42 Visit [facility] 350.1.13.10 ity of [place] 4.2.7.2.686 Kris as Rodrigo?Blea [id number] [address] Medical Office Building 2021-09-05 2021-09-05 Orders Doctor JAYSON 1.2.840.114 [id number] Univers 00:00:00 00:00:00 Only Unassigned, IRKKI 350.1.13.10 ity of [place] [facility] 4.2.7.2.686 Kris as [phone] [facility] 009 Branch 2021-08-29 2021-08-29 Outpatient R ADDI HARRIS [facility] [id number] Univers 09:20:00 09:20:00 ADDI HARRIS [facility] 2021-08-24 2021-08-24 Telephone Steven [facility] 1.2.840.114 [id number] Univers 00:00:00 00:00:00 [facility] 350.1.13.10 ity of [place] 4.2.7.2.686 Kris as Rodrigo?Blea [id number] [address] Medical Office Building 2021-08-11 2021-08-11 Outpatient R HERVE [facility] [id number] Univers 12:45:00 12:45:00 STEPHANIA arrington of [facility] 2021-08-11 2021-08-11 Technology Methodology Consultant Pranav, Gualberto Lab Main [facility] 1.2.8 40.114 [id number] Univers 11:08:37 11:23:37 Visit Stephania Edgar 350.1.13.10 [place] [phone] Nm dical formerly [facility] 2021-08-10 2021-08-10 [facility] 1.2.840.114 [id number] Univers 13:35:36 14:27:23 Visit Jose NAVARRETE 350.1.13.10 [place] [phone] [address] [facility] 2021-08-10 2021-08-10 [facility] 1.2.840.114 [id number] Univers 13:35:36 14:27:23 Visit Jose NAVARRETE 350.1.13.10 [id number] [id number] [address] [facility] 2021-08-10 2021-08-10 Outpatient R SARITA [facility] [id number] Univers 13:45:00 13:45:00 JOSE arrington [facility] 2021-08-10 2021-08-10 Telephone [facility] [id number] Univers 00:00:00 00:00:00 Jose ROSALESPEC 350.1.13.10 [id number] [id number] [address] [facility] 2021-08-03 2021-08-03 Outpatient R JOHANNA NARANJO [facility] [id number] Univers 11:00:00 11:00:00 JOHANNA NARANJO i [facility] 2021-07-272021-07-27 Outpatient R [facility] [id number] Univers 18:20:00 18:20:00 [facility] 2021-07-25 2021-07-25 Outpatient R KATIA [facility] [id number] Univers 09:00:00 09:00:00 SUNITA [facility] 2021-07-11 2021-07-11 Outpatient R TORRI [facility] [id number] Univers 14:45:00 14:45:00 NAGA [facility] 2021-06-13 2021-06-13 Outpatient R ABRIL [facility] [id number] Univers 14:30:00 14:30:00 MARIANNE [facility] 2021-05-23 2021-05-23 Outpatient R TORRI [facility] [id number] Univers 10:45:00 10:45:00 NAGA [facility] 2021-05-18 2021-05-18 Outpatient R MARIANO [facility] [id number] Univers 09:20:00 09:20:00 JOHN [facility] 2021-05-08 2021-05-08 Outpatient R KATIA [facility] [id number] Univers 09:30:00 09:30:00 SUNITA [facility] 2021-04-25 2021-04-25 Outpatient R ANDREY [facility] [id number] Univers 13:15:00 13:15:00 ALFONZO [facility] 2021-02-10 2021-02-10 Outpatient R ADDI HARRIS [facility] [id number] Univers 15:00:00 15:00:00 ADDI HRARIS [facility] 2021-02-02 2021-02-02 [facility] [id number] 00:00:00 00:00:00 Outreach Gen [facility] [id number] [facility] [id number] CYNTH[place] [id number] 2021-01-05 2021-01-05 Outpatient R LAURA [facility] [id number] Univers 13:00:00 13:00:00 LORIE [facility] 2020-12-26 2020-12-26 Outpatient R [facility] [id number] Univers 10:45:00 10:45:00 [facility] 2020-12-12 2020-12-12 [facility] [id number] 10:57:30 15:38:19 Visit [place] [facility] [id number] [facility] [id number] [place] [id number] [facility] 2020-12-12 2020-12-12 [facility] [id number] Univers 11:00:00 11:00:00 JOSE [facility] 2020-12-08 2020-12-08 [facility] [id number] Univers 11:40:00 11:40:00 KAY [facility] 2020-10-21 2020-10-21 [facility] [id number] Univers 15:20:00 15:20:00 SARA [facility] 2020-10-10 2020-10-10 Outpatient R [facility] [id number] Univers 11:15:00 11:15:00 [facility] 2020-09-23 2020-09-23 Outpatient R [facility] [id number] Univers 15:00:00 15:00:00 [facility] 2020-08-29 2020-08-29 Outpatient R ADDI HARRIS [facility] [id number] Univers 09:20:00 09:20:00 ADDI HARRIS [facility] 2020-08-22 2020-08-22 Outpatient ADDI GRAJEDA [facility] [id number] Univers 16:00:00 16:00:00 ADDI HARRIS kamila [facility] 2020-08-19 2020-08-19 Outpatient R ADDI HARRIS [facility] [id number] Univers 09:20:00 09:20:00 ADDI HARRIS [facility] 2020-06-27 2020-06-27 [facility] [id number] Univers 13:00:00 13:00:00 STEPHANIA [facility] 2020-04-22 2020-04-22 Outpatient Manjit KUMAR [facility] [id number] Univers 14:15:00 14:15:00 JULIO C [facility] 2020-03-18 2020-03-18 Outpatient Manjit KUMAR [facility] [id number] Univers 14:00:00 14:00:00 JULIO C [facility] 2020-02-22 2020-02-22 Outpatient Manjit MIGUEL [facility] [id number] Univers 13:30:00 13:30:00 SHAQ [facility] 2020-01-13 2020-01-13 Outpatient Manjit WHALEY [facility] [id number] Univers 10:10:00 10:10:00 AUGIE [facility] 2019-12-30 2019-12-30 Outpatient Manjit WHALEY [facility] [id number] Univers [facility]:00[facility]00 [facility]30:[facility] 2019-[facility]-15 Outpatient Manjit BROWN [facility] [id number] Univers 12:00:00 13:29:33 JUSTINE [facility] 2019-09-24 2019-09-24 Outpatient Manjit LARSON [facility] [id number] Univers 10:00:00 10:40:47 VENTURA [facility] Results Test Description Test Time Test Comments Results Result Comments Source OCCULT BLD,FECAL,IMMUNOASSAY DIAG 2022-09-05 09:56:34 Test Item Value Reference Range Interpretation Comme nts OCCULT BLD, FECAL (test code NEGATIVE NEGATIVE UNLESS OTHERWISE INDICATED, ALL = 67970) TESTING PERFORM [facility] [address] [place] [address] DIGITAL ACCOUNT SUPERVISOR: SKYLER SAUER M.D. CLIA NUMBER [id number] CAP ACCREDITATION N O. [id number] OCCULT BLD,FECAL,IMMUNOASSAY [id number] 00:00:00 Test Item Value Reference Range Interpretation Comments OCCULT BLD, FECAL (test code = NEGATIVE 99709) OCCULT BLD,FECAL,IMMUNOASSAY [id number] 00:00:00 Test Item Value Reference Range Interpretation Comments OCCULT BLD, FECAL (test code = NEGATIVE 99953) OCCULT BLD,FECAL,IMMUNOASSAY [id number] 00:00:00 Test Item Value Reference Range Interpretation Comments OCCULT BLD, FECAL (test code = NEGATIVE 96857) LIPID [id number] 03:01:05 Test Item Value Reference Range Interpretation Comments CHOLESTEROL (test 252 MG/DL <200 H code = 2210) TRIGLYCERIDES (test 131 MG/DL <150 code = 2232) HDL CHOLESTEROL (test 57 MG/DL >39 code = 2220) CALC LDL CHOL (test 168 MG/DL <100 H NOTE: C ALCULATED LDL code = 2237) IS BASED ON JIMBO-RICHARDS METHOD WHICHINCLUDES ADJUSTABLE TRIGLYCERIDE:VL DL CHOLESTEROL RAT IO.THIS FACTOR VARIES B Y MEASURED TRIGLY CERIDE AND NON-HDLCHOL ESTEROL CONCENTRATIONS WITH INCREASED CALCU LATED LDL SEENIN HIGH ER TRIGLYCERIDE OR LOWER NON-HDL SPECIME NS. FOR MOREINFORMATION , SEE CLIENT ANNOUNCE MENT AT [email or web address] RISK RATIO LDL/HDL 2.95 RATIO <3.22 (test code = 2238) COMPREHENSIVE METABOLIC [id number] 03:01:05 Test Item Value Reference Range Interpretation Comments GLUCOSE (test code = 101 MG/DL 70-99 H 2216) BUN (test code = 14 MG/DL 6-2207) CREATININE (test 0.97 MG/DL 0.60-1.30 code = 2214) eGFR (2020 CKD-EPI) 71 >60 (test code = 29773) ML/MIN/1.73 CALC BUN/CREAT (test 14 RATIO 6-28 code = 2235) SODIUM (test code = 141 MEQ/L 102-592 6661) POTASSIUM (test code 3.9 MEQ/L 3.5-5.4 = 222) CHLORIDE (test code 107 MEQ/L 95-107 = 221) CARBON DIOXIDE (test 20 MEQ/L 19-31 code = 2206) CALCIUM (test code = 9.6 MG/DL 8.5-10.5 2208) PROTEIN, TOTAL (test 7.8 G/DL 6.1-8.3 code = 2229) ALBUMIN (test code = 4.5 G/DL 3.5-5.2 2200) CALC GLOBULIN (test 3.3 G/DL 1.9-3.7 code = 2240) CALC A/G RATIO (test 1.4 RATIO 1.0-2.6 code = 2234) BILIRUBIN, TOTAL 0.3 MG/DL See_Comment [Automated message] (test code = 2207) The syste m which generated this result transmitted ref erence range: <=1.2. T he reference range was not used to int erpret this result as normal/abnormal . ALKALINE PHOSPHATASE 79 U/L 40-130 (test code = 2204) AST (test code = 22 U/L 9-40 8) ALT (test code = 19 U/L 5-40 UNLESS OTH ERWISE 2219) INDICATED, ALL TESTING PERFORM [facility]. [address] [place], [place] [id number] [place] [address] DIRECTOR: SKYLER SAUER M.D. CLIA NUMBER [id number] CAP ACCREDITATION N O. [id number] HEMOGLOBIN [id number] 02:02:40 Test Item Value Reference Range Interpretation Comments HEMOGLOBIN A1c (test code = 61467) 5.7 % 4.2-5.6 H HEMOGLOBIN [id number] 00:00:00 Test Item Value Reference Range Interpretation Comments HEMOGLOBIN A1c (test code = 23618) 5.8 % HEMOGLOBIN [id number] 00:00:00 Test Item Value Reference Range Interpretation Comments HEMOGLOBIN A1c (test code = 30086) 5.8 % HEMOGLOBIN [id number] 00:00:00 Test Item Value Reference Range Interpretation Comments HEMOGLOBIN A1c (test code = 48862) 5.8 % HEMOGLOBIN [id number] 00:00:00 Test Item Value Reference Range Interpretation Comments HEMOGLOBIN A1c (test code = 54893) 5.8 % HEMOGLOBIN [id number] 00:00:00 Test Item Value Reference Range Interpretation Comments HEMOGLOBIN A1c (test code = 18859) 5.8 % HEMOGLOBIN [id number] 00:00:00 Test Item Value Reference Range Interpretation Comments HEMOGLOBIN A1c (test code = 09367) 5.8 % HEMOGLOBIN [id number] 00:00:00 Test Item Value Reference Range Interpretation Comments HEMOGLOBIN A1c (test code = 05005) 5.8 % HEMOGLOBIN [id number] 00:00:00 Test Item Value Reference Range Interpretation Comments HEMOGLOBIN A1c (test code = 97857) 5.8 % HEMOGLOBIN [id number] 00:00:00 Test Item Value Reference Range Interpretation Comments HEMOGLOBIN A1c (test code = 03745) 5.8 % HEMOGLOBIN [id number] 00:00:00 Test Item Value Reference Range Interpretation Comments HEMOGLOBIN A1c (test code = 59966) 5.8 % HEMOGLOBIN [id number] 00:00:00 Test Item Value Reference Range Interpretation Comments HEMOGLOBIN A1c (test code = 12737) 5.8 % HEMOGLOBIN [id number] 00:00:00 Test Item Value Reference Range Interpretation Comments HEMOGLOBIN A1c (test code = 51355) 5.8 % HEMOGLOBIN [id number] 00:00:00 Test Item Value Reference Range Interpretation Comments HEMOGLOBIN A1c (test code = 06386) 5.8 % HEMOGLOBIN [id number] 00:00:00 Test Item Value Reference Range Interpretation Comments HEMOGLOBIN A1c (test code = 28769) 5.8 % HEMOGLOBIN [id number] 00:00:00 Test Item Value Reference Range Interpretation Comments HEMOGLOBIN A1c (test code = 85193) 5.8 % HEMOGLOBIN [id number] 00:00:00 Test Item Value Reference Range Interpretation Comments HEMOGLOBIN A1c (test code = 66680) 5.8 % HEMOGLOBIN [id number] 00:00:00 Test Item Value Reference Range Interpretation Comments HEMOGLOBIN A1c (test code = 19205) 5.8 % HEMOGLOBIN [id number] 00:00:00 Test Item Value Reference Range Interpretation Comments HEMOGLOBIN A1c (test code = 64714) 5.8 % HEMOGLOBIN [id number] 00:00:00 Test Item Value Reference Range Interpretation Comments HEMOGLOBIN A1c (test code = 42600) 5.7 % HEMOGLOBIN [id number] 00:00:00 Test Item Value Reference Range Interpretation Comments HEMOGLOBIN A1c (test code = 34462) 5.7 % HEMOGLOBIN [id number] 00:00:00 Test Item Value Reference Range Interpretation Comments HEMOGLOBIN A1c (test code = 06555) 5.7 % LIPID [id number] 00:00:00 Test Item Value Reference Range Interpretation Comments CHOLESTEROL (test code = 2210) 119 MG/DL TRIGLYCERIDES (test code = 2232) 140 MG/DL HDL CHOLESTEROL (test code = 2220) 49 MG/DL CALC LDL CHOL (test code = 2237) 48 MG/DL RISK RATIO LDL/HDL (test code = 0.98 RATIO 2238) LIPID [id number] 00:00:00 Test Item Value Reference Range Interpretation Comments CHOLESTEROL (test code = 2210) 119 MG/DL TRIGLYCERIDES (test code = 2232) 140 MG/DL HDL CHOLESTEROL (test code = 2220) 49 MG/DL CALC LDL CHOL (test code = 2237) 48 MG/DL RISK RATIO LDL/HDL (test code = 0.98 RATIO 2238) COMPREHENSIVE METABOLIC [id number] 00:00:00 Test Item Value Reference Range Interpretation Comments GLUCOSE (test code = 2217) 101 MG/DL BUN (test code = 2208) 18 MG/DL CREATININE (test code = 2214) 0.88 MG/DL eGFR AMER. (test code 89 ML/MIN/1.73 = 38173) eGFR NON- AMER. (test 77 ML/MIN/1.73 code = 21842) CALC BUN/CREAT (test code = 20 RATIO 2235) SODIUM (test code = 2231) 139 MEQ/L POTASSIUM (test code = 2228) 3.9 MEQ/L CHLORIDE (test code = 2215) 109 MEQ/L CARBON DIOXIDE (test code = 18 MEQ/L 2205) CALCIUM (test code = 2209) 8.9 MG/DL PROTEIN, TOTAL (test code = 7.6 G/DL 2228) ALBUMIN (test code = 2201) 4.0 G/DL CALC GLOBULIN (test code = 3.6 G/DL 2240) CALC A/G RATIO (test code = 1.1 RATIO 4) BILIRUBIN, TOTAL (test code = 0.3 MG/DL 2206) ALKALINE PHOSPHATASE (test 79 U/L code = 2204) AST (test code = 2218) 28 U/L ALT (test code = 2219) 28 U/L COMPREHENSIVE METABOLIC [id number] 00:00:00 Test Item Value Reference Range Interpretation Comments GLUCOSE (test code = 2217) 101 MG/DL BUN (test code = 2208) 18 MG/DL CREATININE (test code = 2214) 0.88 MG/DL eGFR AMER. (test code 89 ML/MIN/1.73 = 65058) eGFR NON- AMER. (test 77 ML/MIN/1.73 code = 79988) CALC BUN/CREAT (test code = 20 RATIO 2235) SODIUM (test code = 2231) 139 MEQ/L POTASSIUM (test code = 2228) 3.9 MEQ/L CHLORIDE (test code = 2215) 109 MEQ/L CARBON DIOXIDE (test code = 18 MEQ/L 2205) CALCIUM (test code = 2209) 8.9 MG/DL PROTEIN, TOTAL (test code = 7.6 G/DL 2228) ALBUMIN (test code = 2201) 4.0 G/DL CALC GLOBULIN (test code = 3.6 G/DL 224) CALC A/G RATIO (test code = 1.1 RATIO 2233) BILIRUBIN, TOTAL (test code = 0.3 MG/DL 2206) ALKALINE PHOSPHATASE (test 79 U/L code = 2204) AST (test code = 2218) 28 U/L ALT (test code = 2219) 28 U/L TSH + FREE T4 [id number] 00:00:00 Test Item Value Reference Range Interpretation Comments TSH, THIRD GENERATION (test code 1.110 UIU/ML = 2821) FREE T4 (THYROXINE) (test code = 0.83 NG/DL 2823) TSH + FREE T4 [id number] 00:00:00 Test Item Value Reference Range Interpretation Comments TSH, THIRD GENERATION (test code 1.110 UIU/ML = 2821) FREE T4 (THYROXINE) (test code = 0.83 NG/DL 2823) TSH + FREE T4 [id number] 00:00:00 Test Item Value Reference Range Interpretation Comments TSH, THIRD GENERATION (test code 1.110 UIU/ML = 2821) FREE T4 (THYROXINE) (test code = 0.83 NG/DL 2823) HEMOGLOBIN [id number] 00:00:00 Test Item Value Reference Range Interpretation Comments HEMOGLOBIN A1c (test code = 03277) 5.7 % HEMOGLOBIN [id number] 00:00:00 Test Item Value Reference Range Interpretation Comments HEMOGLOBIN A1c (test code = 25548) 5.7 % HEMOGLOBIN [id number] 00:00:00 Test Item Value Reference Range Interpretation Comments HEMOGLOBIN A1c (test code = 83308) 5.7 % LIPID [id number] 00:00:00 Test Item Value Reference Range Interpretation Comments CHOLESTEROL (test code = 2210) 119 MG/DL TRIGLYCERIDES (test code = 2232) 140 MG/DL HDL CHOLESTEROL (test code = 2220) 49 MG/DL CALC LDL CHOL (test code = 2237) 48 MG/DL RISK RATIO LDL/HDL (test code = 0.98 RATIO 2238) LIPID [id number] 00:00:00 Test Item Value Reference Range Interpretation Comments CHOLESTEROL (test code = 2210) 119 MG/DL TRIGLYCERIDES (test code = 2232) 140 MG/DL HDL CHOLESTEROL (test code = 2220) 49 MG/DL CALC LDL CHOL (test code = 2237) 48 MG/DL RISK RATIO LDL/HDL (test code = 0.98 RATIO 2238) COMPREHENSIVE METABOLIC [id number] 00:00:00 Test Item Value Reference Range Interpretation Comments GLUCOSE (test code = 2217) 101 MG/DL BUN (test code = 2208) 18 MG/DL CREATININE (test code = 2214) 0.88 MG/DL eGFR AMER. (test code 89 ML/MIN/1.73 = 46951) eGFR NON- AMER. (test 77 ML/MIN/1.73 code = 92544) CALC BUN/CREAT (test code = 20 RATIO 2235) SODIUM (test code = 2231) 139 MEQ/L POTASSIUM (test code = 2228) 3.9 MEQ/L CHLORIDE (test code = 2215) 109 MEQ/L CARBON DIOXIDE (test code = 18 MEQ/L 2206) CALCIUM (test code = 2209) 8.9 MG/DL PROTEIN, TOTAL (test code = 7.6 G/DL 2228) ALBUMIN (test code = 2201) 4.0 G/DL CALC GLOBULIN (test code = 3.6 G/DL 2240) CALC A/G RATIO (test code = 1.1 RATIO 2234) BILIRUBIN, TOTAL (test code = 0.3 MG/DL 2206) ALKALINE PHOSPHATASE (test 79 U/L code = 2204) AST (test code = 2218) 28 U/L ALT (test code = 2219) 28 U/L COMPREHENSIVE METABOLIC [id number] 00:00:00 Test Item Value Reference Range Interpretation Comments GLUCOSE (test code = 2217) 101 MG/DL BUN (test code = 2208) 18 MG/DL CREATININE (test code = 2214) 0.88 MG/DL eGFR AMER. (test code 89 ML/MIN/1.73 = 01276) eGFR NON- AMER. (test 77 ML/MIN/1.73 code = 96685) CALC BUN/CREAT (test code = 20 RATIO 2235) SODIUM (test code = 2231) 139 MEQ/L POTASSIUM (test code = 2228) 3.9 MEQ/L CHLORIDE (test code = 2215) 109 MEQ/L CARBON DIOXIDE (test code = 18 MEQ/L 2205) CALCIUM (test code = 2209) 8.9 MG/DL PROTEIN, TOTAL (test code = 7.6 G/DL 2228) ALBUMIN (test code = 2201) 4.0 G/DL CALC GLOBULIN (test code = 3.6 G/DL 2239) CALC A/G RATIO (test code = 1.1 RATIO 2233) BILIRUBIN, TOTAL (test code = 0.3 MG/DL 2206) ALKALINE PHOSPHATASE (test 79 U/L code = 2204) AST (test code = 2218) 28 U/L ALT (test code = 2219) 28 U/L TSH + FREE T4 [id number] 00:00:00 Test Item Value Reference Range Interpretation Comments TSH, THIRD GENERATION (test code 1.110 UIU/ML = 2821) FREE T4 (THYROXINE) (test code = 0.83 NG/DL 2823) TSH + FREE T4 [id number] 00:00:00 Test Item Value Reference Range Interpretation Comments TSH, THIRD GENERATION (test code 1.110 UIU/ML = 2821) FREE T4 (THYROXINE) (test code = 0.83 NG/DL 2823) TSH + FREE T4 [id number] 00:00:00 Test Item Value Reference Range Interpretation Comments TSH, THIRD GENERATION (test code 1.110 UIU/ML = 2821) FREE T4 (THYROXINE) (test code = 0.83 NG/DL 2823) HEMOGLOBIN [id number] 00:00:00 Test Item Value Reference Range Interpretation Comments HEMOGLOBIN A1c (test code = 98322) 5.7 % HEMOGLOBIN [id number] 00:00:00 Test Item Value Reference Range Interpretation Comments HEMOGLOBIN A1c (test code = 64057) 5.7 % HEMOGLOBIN [id number] 00:00:00 Test Item Value Reference Range Interpretation Comments HEMOGLOBIN A1c (test code = 09478) 5.7 % LIPID [id number] 00:00:00 Test Item Value Reference Range Interpretation Comments CHOLESTEROL (test code = 2210) 119 MG/DL TRIGLYCERIDES (test code = 2232) 140 MG/DL HDL CHOLESTEROL (test code = 2220) 49 MG/DL CALC LDL CHOL (test code = 2237) 48 MG/DL RISK RATIO LDL/HDL (test code = 0.98 RATIO 2238) LIPID [id number] 00:00:00 Test Item Value Reference Range Interpretation Comments CHOLESTEROL (test code = 2210) 119 MG/DL TRIGLYCERIDES (test code = 2232) 140 MG/DL HDL CHOLESTEROL (test code = 2220) 49 MG/DL CALC LDL CHOL (test code = 2237) 48 MG/DL RISK RATIO LDL/HDL (test code = 0.98 RATIO 2238) COMPREHENSIVE METABOLIC [id number] 00:00:00 Test Item Value Reference Range Interpretation Comments GLUCOSE (test code = 2217) 101 MG/DL BUN (test code = 2208) 18 MG/DL CREATININE (test code = 2214) 0.88 MG/DL eGFR AMER. (test code 89 ML/MIN/1.73 = 73523) eGFR NON- AMER. (test 77 ML/MIN/1.73 code = 24401) CALC BUN/CREAT (test code = 20 RATIO 2235) SODIUM (test code = 2231) 139 MEQ/L POTASSIUM (test code = 2228) 3.9 MEQ/L CHLORIDE (test code = 2215) 109 MEQ/L CARBON DIOXIDE (test code = 18 MEQ/L 2205) CALCIUM (test code = 2209) 8.9 MG/DL PROTEIN, TOTAL (test code = 7.6 G/DL 2228) ALBUMIN (test code = 2201) 4.0 G/DL CALC GLOBULIN (test code = 3.6 G/DL 2240) CALC A/G RATIO (test code = 1.1 RATIO 2234) BILIRUBIN, TOTAL (test code = 0.3 MG/DL 2206) ALKALINE PHOSPHATASE (test 79 U/L code = 2204) AST (test code = 2218) 28 U/L ALT (test code = 2219) 28 U/L COMPREHENSIVE METABOLIC [id number] 00:00:00 Test Item Value Reference Range Interpretation Comments GLUCOSE (test code = 2217) 101 MG/DL BUN (test code = 2208) 18 MG/DL CREATININE (test code = 2214) 0.88 MG/DL eGFR AMER. (test code 89 ML/MIN/1.73 = 75978) eGFR NON- AMER. (test 77 ML/MIN/1.73 code = 91315) CALC BUN/CREAT (test code = 20 RATIO 2235) SODIUM (test code = 2231) 139 MEQ/L POTASSIUM (test code = 2228) 3.9 MEQ/L CHLORIDE (test code = 2215) 109 MEQ/L CARBON DIOXIDE (test code = 18 MEQ/L 2205) CALCIUM (test code = 2209) 8.9 MG/DL PROTEIN, TOTAL (test code = 7.6 G/DL 2228) ALBUMIN (test code = 2201) 4.0 G/DL CALC GLOBULIN (test code = 3.6 G/DL 0) CALC A/G RATIO (test code = 1.1 RATIO 2233) BILIRUBIN, TOTAL (test code = 0.3 MG/DL 2206) ALKALINE PHOSPHATASE (test 79 U/L code = 2204) AST (test code = 2218) 28 U/L ALT (test code = 2219) 28 U/L TSH + FREE T4 [id number] 00:00:00 Test Item Value Reference Range Interpretation Comments TSH, THIRD GENERATION (test code 1.110 UIU/ML = 2821) FREE T4 (THYROXINE) (test code = 0.83 NG/DL 2823) TSH + FREE T4 [id number] 00:00:00 Test Item Value Reference Range Interpretation Comments TSH, THIRD GENERATION (test code 1.110 UIU/ML = 2821) FREE T4 (THYROXINE) (test code = 0.83 NG/DL 2823) TSH + FREE T4 [id number] 00:00:00 Test Item Value Reference Range Interpretation Comments TSH, THIRD GENERATION (test code 1.110 UIU/ML = 2821) FREE T4 (THYROXINE) (test code = 0.83 NG/DL 2823) HEMOGLOBIN [id number] 00:00:00 Test Item Value Reference Range Interpretation Comments HEMOGLOBIN A1c (test code = 80664) 5.7 % HEMOGLOBIN [id number] 00:00:00 Test Item Value Reference Range Interpretation Comments HEMOGLOBIN A1c (test code = 80272) 5.7 % HEMOGLOBIN [id number] 00:00:00 Test Item Value Reference Range Interpretation Comments HEMOGLOBIN A1c (test code = 56882) 5.7 % LIPID [id number] 00:00:00 Test Item Value Reference Range Interpretation Comments CHOLESTEROL (test code = 2210) 119 MG/DL TRIGLYCERIDES (test code = 2232) 140 MG/DL HDL CHOLESTEROL (test code = 2220) 49 MG/DL CALC LDL CHOL (test code = 2237) 48 MG/DL RISK RATIO LDL/HDL (test code = 0.98 RATIO 2238) LIPID [id number] 00:00:00 Test Item Value Reference Range Interpretation Comments CHOLESTEROL (test code = 2210) 119 MG/DL TRIGLYCERIDES (test code = 2232) 140 MG/DL HDL CHOLESTEROL (test code = 2220) 49 MG/DL CALC LDL CHOL (test code = 2237) 48 MG/DL RISK RATIO LDL/HDL (test code = 0.98 RATIO 2238) COMPREHENSIVE METABOLIC [id number] 00:00:00 Test Item Value Reference Range Interpretation Comments GLUCOSE (test code = 2217) 101 MG/DL BUN (test code = 2208) 18 MG/DL CREATININE (test code = 2214) 0.88 MG/DL eGFR AMER. (test code 89 ML/MIN/1.73 = 27349) eGFR NON- AMER. (test 77 ML/MIN/1.73 code = 18566) CALC BUN/CREAT (test code = 20 RATIO 2235) SODIUM (test code = 2231) 139 MEQ/L POTASSIUM (test code = 2228) 3.9 MEQ/L CHLORIDE (test code = 2215) 109 MEQ/L CARBON DIOXIDE (test code = 18 MEQ/L 2205) CALCIUM (test code = 2209) 8.9 MG/DL PROTEIN, TOTAL (test code = 7.6 G/DL 2228) ALBUMIN (test code = 2201) 4.0 G/DL CALC GLOBULIN (test code = 3.6 G/DL 2239) CALC A/G RATIO (test code = 1.1 RATIO 2234) BILIRUBIN, TOTAL (test code = 0.3 MG/DL 2206) ALKALINE PHOSPHATASE (test 79 U/L code = 2204) AST (test code = 2218) 28 U/L ALT (test code = 2219) 28 U/L COMPREHENSIVE METABOLIC [id number] 00:00:00 Test Item Value Reference Range Interpretation Comments GLUCOSE (test code = 2217) 101 MG/DL BUN (test code = 2208) 18 MG/DL CREATININE (test code = 2214) 0.88 MG/DL eGFR AMER. (test code 89 ML/MIN/1.73 = 41459) eGFR NON- AMER. (test 77 ML/MIN/1.73 code = 02275) CALC BUN/CREAT (test code = 20 RATIO 2235) SODIUM (test code = 2231) 139 MEQ/L POTASSIUM (test code = 2228) 3.9 MEQ/L CHLORIDE (test code = 2215) 109 MEQ/L CARBON DIOXIDE (test code = 18 MEQ/L 2205) CALCIUM (test code = 2209) 8.9 MG/DL PROTEIN, TOTAL (test code = 7.6 G/DL 2228) ALBUMIN (test code = 2201) 4.0 G/DL CALC GLOBULIN (test code = 3.6 G/DL 2240) CALC A/G RATIO (test code = 1.1 RATIO 4) BILIRUBIN, TOTAL (test code = 0.3 MG/DL 2206) ALKALINE PHOSPHATASE (test 79 U/L code = 2204) AST (test code = 2218) 28 U/L ALT (test code = 2219) 28 U/L TSH + FREE T4 [id number] 00:00:00 Test Item Value Reference Range Interpretation Comments TSH, THIRD GENERATION (test code 1.110 UIU/ML = 2821) FREE T4 (THYROXINE) (test code = 0.83 NG/DL 2823) TSH + FREE T4 [id number] 00:00:00 Test Item Value Reference Range Interpretation Comments TSH, THIRD GENERATION (test code 1.110 UIU/ML = 2821) FREE T4 (THYROXINE) (test code = 0.83 NG/DL 2823) TSH + FREE T4 [id number] 00:00:00 Test Item Value Reference Range Interpretation Comments TSH, THIRD GENERATION (test code 1.110 UIU/ML = 2821) FREE T4 (THYROXINE) (test code = 0.83 NG/DL 2823) HEMOGLOBIN [id number] 00:00:00 Test Item Value Reference Range Interpretation Comments HEMOGLOBIN A1c (test code = 96999) 5.7 % HEMOGLOBIN [id number] 00:00:00 Test Item Value Reference Range Interpretation Comments HEMOGLOBIN A1c (test code = 31603) 5.7 % HEMOGLOBIN [id number] 00:00:00 Test Item Value Reference Range Interpretation Comments HEMOGLOBIN A1c (test code = 84865) 5.7 % LIPID [id number] 00:00:00 Test Item Value Reference Range Interpretation Comments CHOLESTEROL (test code = 2210) 119 MG/DL TRIGLYCERIDES (test code = 2232) 140 MG/DL HDL CHOLESTEROL (test code = 2220) 49 MG/DL CALC LDL CHOL (test code = 2237) 48 MG/DL RISK RATIO LDL/HDL (test code = 0.98 RATIO 2238) LIPID [id number] 00:00:00 Test Item Value Reference Range Interpretation Comments CHOLESTEROL (test code = 2210) 119 MG/DL TRIGLYCERIDES (test code = 2232) 140 MG/DL HDL CHOLESTEROL (test code = 2220) 49 MG/DL CALC LDL CHOL (test code = 2237) 48 MG/DL RISK RATIO LDL/HDL (test code = 0.98 RATIO 2238) COMPREHENSIVE METABOLIC [id number] 00:00:00 Test Item Value Reference Range Interpretation Comments GLUCOSE (test code = 2217) 101 MG/DL BUN (test code = 2208) 18 MG/DL CREATININE (test code = 2214) 0.88 MG/DL eGFR AMER. (test code 89 ML/MIN/1.73 = 87052) eGFR NON- AMER. (test 77 ML/MIN/1.73 code = 74841) CALC BUN/CREAT (test code = 20 RATIO 2235) SODIUM (test code = 2231) 139 MEQ/L POTASSIUM (test code = 2228) 3.9 MEQ/L CHLORIDE (test code = 2215) 109 MEQ/L CARBON DIOXIDE (test code = 18 MEQ/L 2205) CALCIUM (test code = 2209) 8.9 MG/DL PROTEIN, TOTAL (test code = 7.6 G/DL 2228) ALBUMIN (test code = 220) 4.0 G/DL CALC GLOBULIN (test code = 3.6 G/DL 2239) CALC A/G RATIO (test code = 1.1 RATIO 2234) BILIRUBIN, TOTAL (test code = 0.3 MG/DL 7) ALKALINE PHOSPHATASE (test 79 U/L code = 2204) AST (test code = 2218) 28 U/L ALT (test code = 2219) 28 U/L COMPREHENSIVE METABOLIC [id number] 00:00:00 Test Item Value Reference Range Interpretation Comments GLUCOSE (test code = 2217) 101 MG/DL BUN (test code = 2208) 18 MG/DL CREATININE (test code = 2214) 0.88 MG/DL eGFR AMER. (test code 89 ML/MIN/1.73 = 46344) eGFR NON- AMER. (test 77 ML/MIN/1.73 code = 49529) CALC BUN/CREAT (test code = 20 RATIO 2235) SODIUM (test code = 2231) 139 MEQ/L POTASSIUM (test code = 2228) 3.9 MEQ/L CHLORIDE (test code = 2215) 109 MEQ/L CARBON DIOXIDE (test code = 18 MEQ/L 2205) CALCIUM (test code = 2209) 8.9 MG/DL PROTEIN, TOTAL (test code = 7.6 G/DL 2228) ALBUMIN (test code = 2201) 4.0 G/DL CALC GLOBULIN (test code = 3.6 G/DL 2240) CALC A/G RATIO (test code = 1.1 RATIO 2234) BILIRUBIN, TOTAL (test code = 0.3 MG/DL 2206) ALKALINE PHOSPHATASE (test 79 U/L code = 2204) AST (test code = 2218) 28 U/L ALT (test code = 2219) 28 U/L TSH + FREE T4 [id number] 00:00:00 Test Item Value Reference Range Interpretation Comments TSH, THIRD GENERATION (test code 1.110 UIU/ML = 2821) FREE T4 (THYROXINE) (test code = 0.83 NG/DL 2823) TSH + FREE T4 [id number] 00:00:00 Test Item Value Reference Range Interpretation Comments TSH, THIRD GENERATION (test code 1.110 UIU/ML = 2821) FREE T4 (THYROXINE) (test code = 0.83 NG/DL 2823) TSH + FREE T4 [id number] 00:00:00 Test Item Value Reference Range Interpretation Comments TSH, THIRD GENERATION (test code 1.110 UIU/ML = 2821) FREE T4 (THYROXINE) (test code = 0.83 NG/DL 2823) HEMOGLOBIN [id number] 00:00:00 Test Item Value Reference Range Interpretation Comments HEMOGLOBIN A1c (test code = 33083) 5.7 % HEMOGLOBIN [id number] 00:00:00 Test Item Value Reference Range Interpretation Comments HEMOGLOBIN A1c (test code = 12661) 5.7 % HEMOGLOBIN [id number] 00:00:00 Test Item Value Reference Range Interpretation Comments HEMOGLOBIN A1c (test code = 91637) 5.7 % LIPID [id number] 00:00:00 Test Item Value Reference Range Interpretation Comments CHOLESTEROL (test code = 2210) 119 MG/DL TRIGLYCERIDES (test code = 2232) 140 MG/DL HDL CHOLESTEROL (test code = 2220) 49 MG/DL CALC LDL CHOL (test code = 2237) 48 MG/DL RISK RATIO LDL/HDL (test code = 0.98 RATIO 2238) LIPID [id number] 00:00:00 Test Item Value Reference Range Interpretation Comments CHOLESTEROL (test code = 2210) 119 MG/DL TRIGLYCERIDES (test code = 2232) 140 MG/DL HDL CHOLESTEROL (test code = 2220) 49 MG/DL CALC LDL CHOL (test code = 2237) 48 MG/DL RISK RATIO LDL/HDL (test code = 0.98 RATIO 2238) COMPREHENSIVE METABOLIC [id number] 00:00:00 Test Item Value Reference Range Interpretation Comments GLUCOSE (test code = 2217) 101 MG/DL BUN (test code = 2208) 18 MG/DL CREATININE (test code = 2214) 0.88 MG/DL eGFR AMER. (test code 89 ML/MIN/1.73 = 05099) eGFR NON- AMER. (test 77 ML/MIN/1.73 code = 57376) CALC BUN/CREAT (test code = 20 RATIO 2235) SODIUM (test code = 2231) 139 MEQ/L POTASSIUM (test code = 2228) 3.9 MEQ/L CHLORIDE (test code = 2215) 109 MEQ/L CARBON DIOXIDE (test code = 18 MEQ/L 2205) CALCIUM (test code = 2209) 8.9 MG/DL PROTEIN, TOTAL (test code = 7.6 G/DL 2228) ALBUMIN (test code = 2201) 4.0 G/DL CALC GLOBULIN (test code = 3.6 G/DL 2240) CALC A/G RATIO (test code = 1.1 RATIO 2234) BILIRUBIN, TOTAL (test code = 0.3 MG/DL 2206) ALKALINE PHOSPHATASE (test 79 U/L code = 2204) AST (test code = 2218) 28 U/L ALT (test code = 2219) 28 U/L COMPREHENSIVE METABOLIC [id number] 00:00:00 Test Item Value Reference Range Interpretation Comments GLUCOSE (test code = 2217) 101 MG/DL BUN (test code = 2208) 18 MG/DL CREATININE (test code = 2214) 0.88 MG/DL eGFR AMER. (test code 89 ML/MIN/1.73 = 52912) eGFR NON- AMER. (test 77 ML/MIN/1.73 code = 95516) CALC BUN/CREAT (test code = 20 RATIO 2235) SODIUM (test code = 2231) 139 MEQ/L POTASSIUM (test code = 2228) 3.9 MEQ/L CHLORIDE (test code = 2215) 109 MEQ/L CARBON DIOXIDE (test code = 18 MEQ/L 2205) CALCIUM (test code = 2209) 8.9 MG/DL PROTEIN, TOTAL (test code = 7.6 G/DL 2228) ALBUMIN (test code = 2201) 4.0 G/DL CALC GLOBULIN (test code = 3.6 G/DL 2240) CALC A/G RATIO (test code = 1.1 RATIO 2234) BILIRUBIN, TOTAL (test code = 0.3 MG/DL 2206) ALKALINE PHOSPHATASE (test 79 U/L code = 2204) AST (test code = 2218) 28 U/L ALT (test code = 2219) 28 U/L TSH + FREE T4 [id number] 00:00:00 Test Item Value Reference Range Interpretation Comments TSH, THIRD GENERATION (test code 1.110 UIU/ML = 2821) FREE T4 (THYROXINE) (test code = 0.83 NG/DL 2823) TSH + FREE T4 [id number] 00:00:00 Test Item Value Reference Range Interpretation Comments TSH, THIRD GENERATION (test code 1.110 UIU/ML = 2821) FREE T4 (THYROXINE) (test code = 0.83 NG/DL 2823) TSH + FREE T4 [id number] 00:00:00 Test Item Value Reference Range Interpretation Comments TSH, THIRD GENERATION (test code 1.110 UIU/ML = 2821) FREE T4 (THYROXINE) (test code = 0.83 NG/DL 2823)
[2022-12-25 18:04] LABS: Absolute Lymphocytes (CBC) 1.8 K/uL (0.7-4.9); Hematocrit 37.8 % (36.0-45.0); Lymphocytes % 14.1 % (15.3-44.8); MCV 89.3 fL (80-100); MPV 8.1 fL (7.6-11.3); RBC Red Blood Cell Count 4.23 M/uL (3.86-4.86)
[2022-12-25] MEDS ORDERED: KETOROLAC 30 MG/ML INJ ONE (18:06)
--- NOTE | 2022-12-25 18:10 | RAD REPORT ---
EXAM DESCRIPTION: CT - Stone Protocol - 12/25/2022 5:52 pm CLINICAL HISTORY: Flank pain. right flank pain, right lower abdominal pain COMPARISON: Abdomen Pelvis W Contrast dated 06/15/2022 TECHNIQUE: Axial images were obtained without oral or IV contrast. Lack of contrast limits solid org an and vascular assessment. The [id number] spans the entirety of the system partially obscuring uppermost abdomen and lung bases. Coronal reformatted images were obtained and reviewed. All CT scans are performed using dose optimization technique as appropriate and may include automated exposure control or mA/KV adjustment according to patient size. FINDINGS: The lower lung napier are clear. Cholecystectomy clips. Imaged portions of the liver and spleen show no suspicious findings on non-contrast imaging. The panc reas and adrenal glands are normal. No pathologic lymphadenopathy in the abdomen or pelvis. There is a 5-6 mm calculus at the right UVJ with [id number] right hydroureter and hydronephrosi s. 5 mm calculus is seen midpole right kidney anteriorly. Tiny punctate calculus suspected inferior c saumya left kidney. No bowel obstruction, free air, free fluid or abscess. Postsurgical changes involving the bowel in th e right lower quadrant. Mild to moderate lumbosacral degenerative changes. IMPRESSION: 5-6 mm calculus right UVJ with [id number] right-sided hydronephrosis. Additional bilateral nephrolithiasis is present.
[2022-12-25 18:28] LABS: Albumin 3.8 g/dL (3.4-5.0); Bilirubin Total 0.3 mg/dL (0.2-1.0); Protein, Total 8.6 g/dL (6.4-8.2)
[2022-12-25 18:30] LABS: Potassium 4.1 mmol/L (3.5-5.1)
[2022-12-25] MEDS ORDERED: TAMSULOSIN 0.4 MG SR CAP ONE (19:08)
[2022-12-25 19:14] LABS: Urine Blood Negative (Negative); Urine Glucose Negative (Negative); Urine Protein Negative (Negative)
--- NOTE | 2022-12-25 19:18 | ER ---
Nurse's Notes [facility] Name: Elizabeth Garcia Age: 52 yrs Sex: Female : 1970 Arrival Date: 12/25/2022 Time: 16:55 Bed 13 Private MD: Diagnosis: Calculus of ureter Presentation: 12/25 17:01 Chief complaint: Patient states: Lower abdominal pain since this morning at 1100. Pt ld1 reports episode of diarrhea followed by the abdominal pain. Coronavirus screen: At this time, the client does not indicate any symptoms associated with coronavirus-19. Ebola Screen: No symptoms or risks identified at this time. Initial Sepsis Screen: Does the patient meet any 2 criteria? No. Patient's initial sepsis screen is negative. Does the patient have a suspected source of infection? No. Patient's initial sepsis screen is negative. Risk Assessment: Do you want to hurt yourself or someone else? Patient reports no desire to harm self or others. Onset of symptoms was December 25, 2022. 17:01 Method Of Arrival: Ambulatory ld1 17:01 Acuity: RAZA 3 ld1 Triage Assessment: 17:02 General: Appears in no apparent distress. comfortable, Behavior is calm, cooperative, ld1 appropriate for age. Pain: Complains of pain in abdomen Pain radiates to low back area and right low back Pain currently is 8 out of 10 on a pain scale. Quality of pain is described as throbbing. EENT: No signs and/or symptoms were reported regarding the EENT system. Neuro: Level of Consciousness is awake, alert, obeys commands, Oriented to person, place, time, situation. Cardiovascular: Capillary refill < 3 seconds Patient's skin is warm and dry. Respiratory: Airway is patent Respiratory effort is even, unlabored. GI: Abdomen is round non-distended. GI: Reports lower abdominal pain, nausea. : No signs and/or symptoms were reported regarding the genitourinary system. Derm: No signs and/or symptoms reported regarding the dermatologic system. Musculoskeletal: No signs and/or symptoms reported regarding the musculoskeletal system. 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 - Social history:: Smoking status: Patient denies any tobacco usage or history of. Patient/guardian denies using alcohol. Screenin:15 [facility] ED Fall Risk Assessment (Adult) History of falling in the last 3 months, ph including since admission No falls in past 3 months (0 pts) Confusion or Disorientation No (0 pts) Intoxicated or Sedated No (0 pts) Impaired Gait No (0 pts) Mobility Assist Device Used No (0 pt) Altered Elimination No (0 pt) Score/Fall Risk Level 0 - 2 = Low Risk Oriented to surroundings, Maintained a safe environment, Hourly rounding (assess needs \T\ fall precautionary measures) done. Abuse screen: Denies threats or abuse. Denies injuries from another. Nutritional screening: No deficits noted. Tuberculosis screening: No symptoms or risk factors identified. Assessment: 18:00 General: Appears in no apparent distress. uncomfortable, Behavior is calm, cooperative, ph appropriate for age. Pain: Complains of pain in right low back and abdomen. Neuro: Level of Consciousness is awake, alert, obeys commands, Oriented to person, place, time, situation. Cardiovascular: Capillary refill < 3 seconds in bilateral fingers Patient's skin is warm and dry. Respiratory: Airway is patent Respiratory effort is even, unlabored. GI: Reports lower abdominal pain, diarrhea, nausea, Patient currently denies vomiting. : Reports pain in left lower quadrant(s) in lower back. Derm: Skin is healthy with good turgor, Skin is pink, warm \T\ dry. 19:35 General: Appears in no apparent distress. comfortable, well groomed, well developed, pf1 Behavior is calm, cooperative, appropriate for age, quiet. Pain: Denies pain. Neuro: No deficits noted. Level of Consciousness is awake, alert, obeys commands, Oriented to person, place, time, situation. Cardiovascular: No deficits noted. Capillary refill < 3 seconds Patient's skin is warm and dry. Respiratory: No deficits noted. Airway is patent Trachea midline Respiratory effort is even, unlabored, Respiratory pattern is regular, symmetrical. GI: No deficits noted. Abdomen is round non-distended, Bowel sounds present X 4 quads. Abd is soft and non tender X 4 quads. Reports lower abdominal pain, with right flank pain, patient denies any pain at this time. : No deficits noted. No signs and/or symptoms were reported regarding the genitourinary system. EENT: No deficits noted. No signs and/or symptoms were reported regarding the EENT system. Derm: No deficits noted. No signs and/or symptoms reported regarding the dermatologic system. Vital Signs: 17:01 BP 137 / 69; Pulse 62; Resp 18; Temp 97.5(O); Pulse Ox 97% on R/A; Weight 72.57 kg; ld1 Height 5 ft. 0 in. (152.40 cm); Pain 8/10; 19:16 Pulse 61; Resp 18; Pulse Ox 98% on R/A; ph 19:28 BP 124 / 63; Pulse 55; Resp 16; Temp 97.2; Pulse Ox 97% on R/A; Pain 0/10; pf1 17:01 Body Mass Index 31.25 (72.57 kg, 152.40 cm) ld1 ED Course: 16:55 Patient arrived in ED. am2 16:57 [facility] 16:57 Shivani Rowe MD is Attending Physician. [facility] 17:02 Triage completed. ld1 17:02 Arm band placed on right wrist. ld1 17:32 Cassi Milner, RN is Primary Nurse. ph 17:51 CT Stone Protocol In Process Unspecified. EDMS 19:16 Patient has correct armband on for positive identification. Placed in gown. Bed in low ph position. Call light in reach. Side rails up X 1. Pulse ox on. NIBP on. Door closed. Noise minimized. Warm blanket given. 19:17 Jason Lemus MD is Referral Physician. [facility] 19:37 No provider procedures requiring assistance completed. Patient did not have IV access pf1 during this emergency room visit. Administered Medications: 18:30 Drug: Ketorolac 30 mg {Note: given IM in R deltoid.} Route: IVP; Site: Other; ph 19:14 Follow up: Response: No adverse reaction; Pain is decreased ph 19:09 Drug: Flomax (tamsulosin) 0.4 mg Route: PO; ph 19:14 Follow up: Response: No adverse reaction ph Medication: 19:16 VIS not applicable for this client. ph Outcome: 19:17 Discharge ordered by MD. carrasco 19:38 Discharged to home ambulatory. pf1 19:38 Condition: improved 19:38 Discharge instructions given to patient, Instructed on discharge instructions, follow up and referral plans. medication usage, Demonstrated understanding of instructions, follow-up care, medications, Prescriptions given X 3. 19:38 Patient left the ED. pf1 Signatures: Dispatcher [employer] EDMS Joselito Eng PA PA jmm Hall, Patricia, RN RN ph Gloria Hinojosa am2 Chloe Winchester RN RN ld1 Nicole yancey RN RN pf1 Corrections: (The following items were deleted from the chart) 19:38 19:28 BP 124 / 63; Temp 97.2F; ph pf1
--- NOTE | 2022-12-25 19:18 | EDPHYS ---
Physician Documentation [facility] Name: Elizabeth Garcia Age: 52 yrs Sex: Female : 1970 Arrival Date: 12/25/2022 Time: 16:55 Bed 13 Private MD: ED Physician Shivani Rowe HPI: 12/25 17:19 This 52 yrs old Female presents to ER via Ambulatory with complaints of Abdominal Pain jmm - rlq, Back Pain. 17:19 The patient presents with abdominal pain. Onset: The symptoms/episode began/occurred jmm acutely, today. The symptoms radiate to suprapubic area and right lower quadrant. Associated signs and symptoms: Pertinent positives: nausea. The symptoms are described as achy. Is a 52-year-old female with history of Crohn's, diabetes mellitus, hyperlipidemia, hypertension the presents emerged part with complaints of right flank pain beginning earlier today. Also complains of nausea. Denies fever.. 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 - Social history:: Smoking status: Patient denies any tobacco usage or history of. Patient/guardian denies using alcohol. ROS: 17:19 Constitutional: Negative for fever, chills, and weight loss, Cardiovascular: Negative jmm for chest pain, palpitations, and edema, Respiratory: Negative for shortness of breath, cough, wheezing, and pleuritic chest pain. 17:19 Abdomen/GI: Positive for abdominal pain. 17:19 All other systems are negative. Exam: 17:19 Constitutional: This is a well developed, well nourished patient who is awake, alert, jmm and in no acute distress. Head/Face: atraumatic. Eyes: EOMI, no conjunctival erythema appreciated ENT: Moist Mucus Membranes Neck: Trachea midline, Supple Chest/axilla: Normal chest wall appearance and motion. Cardiovascular: Regular rate and rhythm. No edema appreciated Respiratory: Normal respirations, no respiratory distress appreciated Abdomen/GI: Non distended Back: Normal ROM Skin: General appearance color normal MS/ Extremity: Moves all extremities, no obvious deformities appreciated, no edema noted to the lower extremities Neuro: Awake and alert Psych: Behavior is normal, Mood is normal, Patient is cooperative and pleasant Vital Signs: 17:01 BP 137 / 69; Pulse 62; Resp 18; Temp 97.5(O); Pulse Ox 97% on R/A; Weight 72.57 kg; ld1 Height 5 ft. 0 in. (152.40 cm); Pain 8/10; 19:16 Pulse 61; Resp 18; Pulse Ox 98% on R/A; ph 19:28 BP 124 / 63; Pulse 55; Resp 16; Temp 97.2; Pulse Ox 97% on R/A; Pain 0/10; pf1 17:01 Body Mass Index 31.25 (72.57 kg, 152.40 cm) ld1 MDM: 17:[address] [facility] 19:16 Data reviewed: vital signs, nurses notes. I considered the following discharge [facility] prescriptions or medication management in the emergency department Medications were administered in the Emergency Department. See MAR. Counseling: I had a detailed discussion with the patient and/or guardian regarding: the historical points, exam findings, and any diagnostic results supporting the discharge/admit diagnosis, lab results, radiology results, the need for outpatient follow up, to return to the emergency department if symptoms worsen or persist or if there are any questions or concerns that arise at home. ED course: Pain is alleviated in the ED. Patient advised follow-up PCP and otherwise given strict return precautions. Patient understood agrees plan of care.. 12/25 17:19 Order name: CBC with Diff; Complete Time: 18:08 [facility] 12/25 17:19 Order name: CMP; Complete Time: 18:31 [facility] 12/25 17:19 Order name: Lipase; Complete Time: 18:31 [facility] 12/25 17:19 Order name: CT Stone Protocol; Complete Time: 18:12 [facility] 12/25 19:14 Order name: Urine Dipstick-Ancillary; Complete Time: 19:15 [facility] 12/25 17:19 Order name: Labs collected and sent; Complete Time: 18:02 [facility] 12/25 17:19 Order name: Urine Dipstick-Ancillary (obtain specimen); Complete Time: 18:40 [facility] 12/25 18:59 Order name: [facility]. Order: run urine for dispo; Complete Time: 19:13 [facility] Administered Medications: 18:30 Drug: Ketorolac 30 mg {Note: given IM in R deltoid.} Route: IVP; Site: Other; ph 19:14 Follow up: Response: No adverse reaction; Pain is decreased ph 19:09 Drug: Flomax (tamsulosin) 0.4 mg Route: PO; ph 19:14 Follow up: Response: No adverse reaction ph Disposition Summary: 12/25/22 19:17 Discharge Ordered Location: Home [facility] Condition: Stable [facility] Diagnosis - Calculus of ureter [facility] Followup: [facility] - With: Jason Lemus MD - When: 2 - 3 days - Reason: Recheck today's complaints, Continuance of care, Re-evaluation by your physician Discharge Instructions: - Discharge Summary Sheet [facility] - Kidney Stones [facility] - Dietary Guidelines to Help Prevent Kidney Stones [facility] Forms: - Medication Reconciliation Form [facility] - Thank You Letter [facility] - Antibiotic Education [facility] - Prescription Opioid Use [facility] Prescriptions: - Flomax 0.4 mg Oral capsule - take 1 capsule by ORAL route once daily 1/2 hour following the same meal each [facility] day; 10 capsule; Refills: 0, Product Selection Permitted - ondansetron 4 mg Oral tablet,disintegrating - take 1 tablet by ORAL route every 4-6 hours As needed; 20 tablet; Refills: 0, [facility] Product Selection Permitted - Diclofenac Sodium 75 mg Oral tablet,delayed release (DR/EC) - take 1 tablet by ORAL route 2 times per day As needed; 20 tablet; Refills: 0, [facility] Product Selection Permitted Signatures: Dispatcher [employer] Joselito Power PA PA [facility] Cassi Milner RN RN ph Chloe Winchester RN RN ld1
[2022-12-25 20:20] VITALS: BP 124/63; TEMP 97.2; O2SAT 97
== END 2022-12-25 19:38 | disposition home or self-care (01) ==
LOC: ER 16:53
DX: N20.1 Calculus of ureter (principal); I10 Essential (primary) hypertension; Z88.5 Allergy status to narcotic agent
CPT/HCPCS: 36415; 74176; 76377; 80053; 81003; 83690; 85025

== ENCOUNTER → 2024-01-14 | Emergency (ER) | payer OTHER ==
[~2024-01-14] MED LIST changes: -HEPARIN 500 UNIT/5 ML SYR IV ONE; +KETOROLAC 30 MG/ML INJ ONE; +METOCLOPRAMIDE 10 MG/2mL INJ ONE; +NA CHLORIDE 0.9% 500 ML ONE
--- OUTSIDE RECORDS SUMMARY | 2024-01-14 20:50 | XMS REPORT | Continuity of Care Document ---
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 2022-0 3-09 00:00: 00 No Dose Unknown 2022-0 3-09 00:00: 00 No Dose Unknown 2022-0 3-09 00:00: 00 No Dose Unknown 2022-0 3-09 00:00: 00 No Dose Unknown 2022-0 3-09 00:00: 00 No Dose Unknown 2022-0 3-09 00:00: 00 No Dose Unknown 2022-0 3-09 00:00: 00 No Dose Unknown 2022-0 3-09 00:00: 00 No Dose Unknown 2022-0 3-09 00:00: 00 No Dose Unknown 2022-0 3-09 00:00: 00 No Dose Unknown 2022-0 3-09 00:00: 00 No Dose Unknown 2022-0 3-09 00:00: 00 No Dose Unknown 2022-0 3-09 00:00: 00 No Dose Unknown 2022-0 3-09 00:00: 00 No Dose Unknown 2022-0 3-09 00:00: 00 No Dose Unknown 2022-0 3-09 00:00: 00 No Dose Unknown 2022-0 3-09 00:00: 00 No Dose Unknown 2022-0 3-09 00:00: 00 No Dose Unknown 2022-0 3-09 00:00: 00 No Dose Unknown 2022-0 3-09 00:00: 00 No Dose Unknown 2022-0 3-09 00:00: 00 No Dose Unknown 2022-0 3-09 00:00: 00 No Dose Unknown 2022-0 3-09 00:00: 00 No Dose Unknown 2022-0 3-09 00:00: 00 No Dose Unknown 2022-0 3-09 00:00: 00 No Dose Unknown 2022-0 3-09 00:00: 00 No Dose Unknown 2022-0 3-09 00:00: 00 No Dose Unknown 2022-0 3-09 00:00: 00 No Dose Unknown 2022-0 3-09 00:00: 00 No Dose Unknown 2022-0 3-09 00:00: 00 No Dose Unknown 2022-0 3-09 00:00: 00 No Dose Unknown 2022-0 3-09 00:00: 00 No Dose Unknown 2022-0 3-09 00:00: 00 No Dose Unknown 2022-0 3-09 00:00: 00 No Dose Unknown 2022-0 3-09 00:00: 00 No Dose Unknown 2022-0 3-09 00:00: 00 No Dose Unknown 2022-0 3-09 00:00: 00 No Dose Unknown 2022-0 3-09 00:00: 00 No Dose Unknown 2022-0 3-09 00:00: 00 No Dose Unknown 2022-0 3-09 00:00: 00 No Dose Unknown 2022-0 3-09 00:00: 00 No Dose Unknown 2022-0 3-09 00:00: 00 No Dose Unknown 2022-0 3-09 00:00: 00 No Dose Unknown 2022-0 3-09 00:00: 00 No Dose Unknown 2022-0 3-09 00:00: 00 No Dose Unknown 2022-0 3-09 00:00: 00 No Dose Unknown 2022-0 3-09 00:00: 00 No Dose Unknown 2022-0 3-09 00:00: 00 No Dose Unknown 2022-0 3-09 00:00: 00 No Dose Unknown 2022-0 3-09 00:00: 00 No Dose Unknown 2022-0 3-09 00:00: 00 No Dose Unknown 2022-0 3-09 00:00: 00 No Dose Unknown 2022-0 3-09 00:00: 00 No Dose Unknown 2022-0 3-09 00:00: 00 No Dose Unknown 2022-0 3-09 00:00: 00 No Dose Unknown 2022-0 3-09 00:00: 00 No Dose Unknown 2022-0 3-09 00:00: 00 No Dose Unknown 2022-0 3-09 00:00: 00 No Dose Unknown 2022-0 3-09 00:00: 00 No Dose Unknown 2022-0 3-09 00:00: 00 No Dose Unknown 2022-0 3-09 00:00: 00 No Dose Unknown 2022-0 3-09 00:00: 00 No Dose Unknown 2022-0 3-09 00:00: 00 No Dose Unknown 2022-0 3-09 00:00: 00 No Dose Unknown 2022-0 3-09 00:00: 00 No Dose Unknown 2022-0 3-09 00:00: 00 No Dose Unknown 2022-0 3-09 00:00: 00 No Dose Unknown 2022-0 3-09 00:00: 00 No Dose Unknown 2022-0 3-09 00:00: 00 No Dose Unknown 2022-0 3-09 00:00: 00 No Dose Unknown 2022-0 3-09 00:00: 00 No Dose Unknown 2022-0 3-09 00:00: 00 No Dose Unknown 2022-0 3-09 00:00: 00 No Dose Unknown 2022-0 3-09 00:00: 00 No Dose Unknown 2022-0 3-09 00:00: 00 No Dose Unknown 2022-0 3-09 00:00: 00 No Dose Unknown 2022-0 3-09 00:00: 00 No Dose Unknown 2022-0 3-09 00:00: 00 No Dose Unknown 2022-0 3-09 00:00: 00 No Dose Unknown 2022-0 3-09 00:00: 00 No Dose Unknown 2022-0 3-09 00:00: 00 No Dose Unknown 2022-0 3-09 00:00: 00 No Dose Unknown 2022-0 3-09 00:00: 00 No Dose Unknown 2022-0 3-09 00:00: 00 No Dose Unknown 2022-0 3-09 00:00: 00 No Dose Unknown 2022-0 3-09 00:00: 00 No Dose Unknown 2022-0 3-09 00:00: 00 No Dose Unknown 2022-0 3-09 00:00: 00 No Dose Unknown 2022-0 3-09 00:00: 00 No Dose Unknown 2022-0 3-09 00:00: 00 No Dose Unknown 2022-0 3-09 00:00: 00 No Dose Unknown 2022-0 3-09 00:00: 00 No Dose Unknown 2022-0 3-09 00:00: 00 No Dose Unknown 2022-0 3-09 00:00: 00 No Dose Unknown 2022-0 3-09 00:00: 00 No Dose Unknown 2022-0 3-09 00:00: 00 No Dose Unknown 2022-0 3-09 00:00: 00 No Dose Unknown 2022-0 3-09 00:00: 00 No Dose Unknown 2022-0 3-09 00:00: 00 No Dose Unknown 2022-0 3-09 00:00: 00 No Dose Unknown 2022-0 3-09 00:00: 00 No Dose Unknown 2022-0 3-09 00:00: 00 No Dose Unknown 2022-0 3-09 00:00: 00 No Dose Unknown 2022-0 3-09 00:00: 00 No Dose Unknown 2022-0 3-09 00:00: 00 No Dose Unknown 2022-0 3-09 00:00: 00 No Dose Unknown 2022-0 3-09 00:00: 00 No Dose Unknown 2022-0 3-09 00:00: 00 No Dose Unknown 2022-0 3-09 00:00: 00 No Dose Unknown 2022-0 3-09 00:00: 00 No Dose Unknown 2022-0 3-09 00:00: 00 No Dose Unknown 2022-0 3-09 00:00: 00 No Dose Unknown 2022-0 3-09 00:00: 00 No Dose Unknown 2022-0 3-09 00:00: 00 No Dose Unknown 2022-0 3-09 00:00: 00 No Dose Unknown 2022-0 3-09 00:00: 00 No Dose Unknown 2022-0 3-09 00:00: 00 No Dose Unknown 2022-0 3-09 00:00: 00 No Dose Unknown 2022-0 3-09 00:00: 00 No Dose Unknown 2022-0 3-09 00:00: 00 No Dose Unknown 2022-0 3-09 00:00: 00 No Dose Unknown 2022-0 3-09 00:00: 00 No Dose Unknown 2022-0 3-09 00:00: 00 No Dose Unknown 2022-0 3-09 00:00: 00 No Dose Unknown 2022-0 3-09 00:00: 00 No Dose Unknown 2022-0 3-09 00:00: 00 No Dose Unknown 2022-0 3-09 00:00: 00 No Dose Unknown 2022-0 3-09 00:00: 00 No Dose Unknown 2022-0 3-09 00:00: 00 No Dose Unknown 2022-0 3-09 00:00: 00 No Dose Unknown 2022-0 3-09 00:00: 00 No Dose Unknown 2022-0 3-09 00:00: 00 No Dose Unknown 2022-0 3-09 00:00: 00 No Dose Unknown 2022-0 3-09 00:00: 00 No Dose Unknown 2022-0 3-09 00:00: 00 No Dose Unknown 2022-0 3-09 00:00: 00 No Dose Unknown 2022-0 3-09 00:00: 00 No Dose Unknown 2022-0 3-09 00:00: 00 No Dose Unknown 2022-0 3-09 00:00: 00 No Dose Unknown 2022-0 3-09 00:00: 00 No Dose Unknown 2022-0 3-09 00:00: 00 No Dose Unknown 2022-0 3-09 00:00: 00 No Dose Unknown 2022-0 3-09 00:00: 00 No Dose Unknown 2022-0 3-09 00:00: 00 No Dose Unknown 2022-0 3-09 00:00: 00 No Dose Unknown 2022-0 3-09 00:00: 00 No Dose Unknown 2022-0 3-09 00:00: 00 No Dose Unknown 2022-0 3-09 00:00: 00 No Dose Unknown 2022-0 3-09 00:00: 00 No Dose Unknown 2022-0 3-09 00:00: 00 No Dose Unknown 2022-0 3-09 00:00: 00 No Dose Unknown 2022-0 3-09 00:00: 00 No Dose Unknown 2022-0 3-09 00:00: 00 No Dose Unknown 2022-0 3-09 00:00: 00 No Dose Unknown 2022-0 3-09 00:00: 00 No Dose Unknown 2022-0 3-09 00:00: 00 No Dose Unknown 2022-0 3-09 00:00: 00 No Dose Unknown 2022-0 3-09 00:00: 00 No Dose Unknown 2022-0 3-09 00:00: 00 No Dose Unknown 2022-0 3-09 00:00: 00 No Dose Unknown 2022-0 3-09 00:00: 00 No Dose Unknown 2022-0 3-09 00:00: 00 No Dose Unknown 2022-0 3-09 00:00: 00 No Dose Unknown 2022-0 3-09 00:00: 00 No Dose Unknown 2022-0 3-09 00:00: 00 No Dose Unknown 2022-0 3-09 00:00: 00 No Dose Unknown 2022-0 3-09 00:00: 00 No Dose Unknown 2022-0 3-09 00:00: 00 No Dose Unknown 2022-0 3-09 00:00: 00 No Dose Unknown 2022-0 3-09 00:00: 00 No Dose Unknown 2022-0 3-09 00:00: 00 No Dose Unknown 2022-0 3-09 00:00: 00 No Dose Unknown 2022-0 3-09 00:00: 00 No Dose Unknown 2022-0 3-09 00:00: 00 No Dose Unknown 2022-0 3-09 00:00: 00 No Dose Unknown 2022-0 3-09 00:00: 00 No Dose Unknown 2022-0 3-09 00:00: 00 No Dose Unknown 2022-0 3-09 00:00: 00 No Dose Unknown 2022-0 3-09 00:00: 00 No Dose Unknown 2022-0 3-09 00:00: 00 No Dose Unknown 2022-0 3-09 00:00: 00 No Dose Unknown 2022-0 3-09 00:00: 00 No Dose Unknown 2022-0 3-09 00:00: 00 No Dose Unknown 2022-0 3-09 00:00: 00 No Dose Unknown 2022-0 3-09 00:00: 00 No Dose Unknown 2022-0 3-09 00:00: 00 No Dose Unknown 2022-0 3-09 00:00: 00 No Dose Unknown 2022-0 3-09 00:00: 00 No Dose Unknown 2022-0 3-09 00:00: 00 No Dose Unknown 2022-0 3-09 00:00: 00 No Dose Unknown 2022-0 3-09 00:00: 00 No Dose Unknown 2022-0 3-09 00:00: 00 No Dose Unknown 2022-0 3-09 00:00: 00 No Dose Unknown 2022-0 3-09 00:00: 00 No Dose Unknown 2022-0 3-09 00:00: 00 No Dose Unknown 2022-0 3-09 00:00: 00 No Dose Unknown 2022-0 3-09 00:00: 00 No Dose Unknown 2022-0 3-09 00:00: 00 No Dose Unknown 2022-0 3-09 00:00: 00 No Dose Unknown 2022-0 3-09 00:00: 00 No Dose Unknown 2022-0 3-09 00:00: 00 No Dose Unknown 2022-0 3-09 00:00: 00 No Dose Unknown 2022-0 3-09 00:00: 00 No Dose Unknown 2022-0 3-09 00:00: 00 No Dose Unknown 2022-0 3-09 00:00: 00 No Dose Unknown 2022-0 3-09 00:00: 00 No Dose Unknown 2022-0 3-09 00:00: 00 No Dose Unknown 2022-0 3-09 00:00: 00 No Dose Unknown 2022-0 3-09 00:00: 00 No Dose Unknown 2022-0 3-09 00:00: 00 No Dose Unknown 2022-0 3-09 00:00: 00 No Dose Unknown 2022-0 3-09 00:00: 00 No Dose Unknown 2022-0 3-09 00:00: 00 No Dose Unknown 2022-0 3-09 00:00: 00 No Dose Unknown 2022-0 3-09 00:00: 00 No Dose Unknown 2022-0 3-09 00:00: 00 No Dose Unknown 2022-0 3-09 00:00: 00 No Dose Unknown 2022-0 3-09 00:00: 00 No Dose Unknown 2022-0 3-09 00:00: 00 No Dose Unknown 2022-0 3-09 00:00: 00 No Dose Unknown 2022-0 3-09 00:00: 00 No Dose Unknown 2022-0 3-09 00:00: 00 No Dose Unknown 2022-0 3-09 00:00: 00 No Dose Unknown 2022-0 3-09 00:00: 00 No Dose Unknown 2022-0 3-09 00:00: 00 No Dose Unknown 2022-0 3-09 00:00: 00 No Dose Unknown 2022-0 3-09 00:00: 00 No Dose Unknown 2022-0 3-09 00:00: 00 No Dose Unknown 2022-0 3-09 00:00: 00 No Dose Unknown 2022-0 3-09 00:00: 00 No Dose Unknown 2022-0 3-09 00:00: 00 No Dose Unknown 2022-0 3-09 00:00: 00 No Dose Unknown 2022-0 3-09 00:00: 00 No Dose Unknown 2022-0 3-09 00:00: 00 No Dose Unknown 2022-0 3-09 00:00: 00 No Dose Unknown 2022-0 3-09 00:00: 00 No Dose Unknown 2022-0 3-09 00:00: 00 No Dose Unknown 2022-0 3-09 00:00: 00 No Dose Unknown 2022-0 3-09 00:00: 00 No Dose Unknown 2022-0 3-09 00:00: 00 No Dose Unknown 2022-0 3-09 00:00: 00 No Dose Unknown 2022-0 3-09 00:00: 00 No Dose Unknown 2022-0 3-09 00:00: 00 No Dose Unknown 2022-0 3-09 00:00: 00 No Dose Unknown 2022-0 3-09 00:00: 00 No Dose Unknown 2022-0 3-09 00:00: 00 No Dose Unknown 2022-0 3-09 00:00: 00 No Dose Unknown 2022-0 3-09 00:00: 00 No Dose Unknown 2022-0 3-09 00:00: 00 No Dose Unknown 2022-0 3-09 00:00: 00 No Dose Unknown 2022-0 3-09 00:00: 00 No Dose Unknown 2022-0 3-09 00:00: 00 No Dose Unknown 2022-0 3-09 00:00: 00 No Dose Unknown 2022-0 3-09 00:00: 00 No Dose Unknown 2022-0 3-09 00:00: 00 No Dose Unknown 2022-0 3-09 00:00: 00 No Dose Unknown 2022-0 3-09 00:00: 00 No Dose Unknown 2022-0 3-09 00:00: 00 No Dose Unknown 2022-0 3-09 00:00: 00 No Dose Unknown 2022-0 3-09 00:00: 00 No Dose Unknown 2022-0 3-09 00:00: 00 No Dose Unknown 2022-0 3-09 00:00: 00 No Dose Unknown 2022-0 3-09 00:00: 00 No Dose Unknown 2022-0 3-09 00:00: 00 No Dose Unknown 2022-0 3-09 00:00: 00 No Dose Unknown 2022-0 3-09 00:00: 00 No Dose Unknown 2022-0 3-09 00:00: 00 No Dose Unknown 2022-0 3-09 00:00: 00 No Dose Unknown 2022-0 3-09 00:00: 00 No Dose Unknown 2022-0 3-09 00:00: 00 No Dose Unknown 2022-0 3-09 00:00: 00 No Dose Unknown 2022-0 3-09 00:00: 00 No Dose Unknown 2022-0 3-09 00:00: 00 No Dose Unknown 2022-0 3-09 00:00: 00 No Dose Unknown 2022-0 3-09 00:00: 00 No Dose Unknown 2022-0 3-09 00:00: 00 No Dose Unknown 2022-0 3-09 00:00: 00 No Dose Unknown 2022-0 3-09 00:00: 00 No Dose Unknown 2022-0 3-09 00:00: 00 No Dose Unknown 2022-0 3-09 00:00: 00 No Dose Unknown 2022-0 3-09 00:00: 00 No Dose Unknown 2022-0 3-09 00:00: 00 No Dose Unknown 2022-0 3-09 00:00: 00 No Dose Unknown 2022-0 3-09 00:00: 00 No Dose Unknown 2022-0 3-09 00:00: 00 No Dose Unknown 2022-0 3-09 00:00: 00 No Dose Unknown 2022-0 3-09 00:00: 00 No Dose Unknown 2022-0 3-09 00:00: 00 No Dose Unknown 2022-0 3-09 00:00: 00 No Dose Unknown 2022-0 3-09 00:00: 00 No Dose Unknown 2022-0 3-09 00:00: 00 No Dose Unknown 2022-0 3-09 00:00: 00 No Dose Unknown 2022-0 3-09 00:00: 00 No Dose Unknown 2022-0 3-09 00:00: 00 No Dose Unknown 2022-0 3-09 00:00: 00 No Dose Unknown 2022-0 3-09 00:00: 00 No Dose Unknown 2022-0 3-09 00:00: 00 No Dose Unknown 2022-0 3-09 00:00: 00 No Dose Unknown 2022-0 3-09 00:00: 00 No Dose Unknown 2022-0 3-09 00:00: 00 No Dose Unknown 2022-0 3-09 00:00: 00 No Dose Unknown 2022-0 3-09 00:00: 00 No Dose Unknown 2022-0 3-09 00:00: 00 No Dose Unknown 2022-0 3-09 00:00: 00 No Dose Unknown 2022-0 3-09 00:00: 00 No Dose Unknown 2022-0 3-09 00:00: 00 No Dose Unknown 2022-0 3-09 00:00: 00 No Dose Unknown 2022-0 3-09 00:00: 00 No Dose Unknown 2022-0 3-09 00:00: 00 No Dose Unknown 2022-0 3-09 00:00: 00 No Dose Unknown 2022-0 3-09 00:00: 00 No Dose Unknown 2022-0 3-09 00:00: 00 No Dose Unknown 2022-0 3-09 00:00: 00 No Dose Unknown 2022-0 3-09 00:00: 00 No Dose Unknown 2022-0 3-09 00:00: 00 No Dose Unknown 2022-0 3-09 00:00: 00 No Dose Unknown 2022-0 3-09 00:00: 00 No Dose Unknown 2022-0 3-09 00:00: 00 No Dose Unknown 2022-0 3-09 00:00: 00 No Dose Unknown 2022-0 3-09 00:00: 00 No Dose Unknown 2022-0 3-09 00:00: 00 No Dose Unknown 2022-0 3-09 00:00: 00 No Dose Unknown 2022-0 3-09 00:00: 00 No Dose Unknown 2022-0 3-09 00:00: 00 No Dose Unknown 2022-0 3-09 00:00: 00 No Dose Unknown 2022-0 3-09 00:00: 00 No Dose Unknown 2022-0 3-09 00:00: 00 No Dose Unknown 2022-0 3-09 00:00: 00 No Dose Unknown 2022-0 3-09 00:00: 00 No Dose Unknown 2022-0 3-09 00:00: 00 No Dose Unknown 2022-0 3-09 00:00: 00 No Dose Unknown 2022-0 3-09 00:00: 00 No Dose Unknown 2022-0 3-09 00:00: 00 No Dose Unknown 2022-0 3-09 00:00: 00 No Dose Unknown 2022-0 3-09 00:00: 00 No Dose Unknown 2022-0 3-09 00:00: 00 No Dose Unknown 2022-0 3-09 00:00: 00 No Dose Unknown 2022-0 3-09 00:00: 00 No Dose Unknown 2022-0 3-09 00:00: 00 No Dose Unknown 2022-0 3-09 00:00: 00 No Dose Unknown 2022-0 3-09 00:00: 00 No Dose Unknown 2022-0 3-09 00:00: 00 No Dose Unknown 2022-0 3-09 00:00: 00 No Dose Unknown 2022-0 3-09 00:00: 00 No Dose Unknown 2022-0 3-09 00:00: 00 No Dose Unknown 2022-0 3-09 00:00: 00 No Dose Unknown 2022-0 3-09 00:00: 00 No Dose Unknown 2022-0 3-09 00:00: 00 No Dose Unknown 2022-0 3-09 00:00: 00 No Dose Unknown 2022-0 3-09 00:00: 00 No Dose Unknown 2022-0 3-09 00:00: 00 No Dose Unknown 2022-0 3-09 00:00: 00 No Dose Unknown 2022-0 3-09 00:00: 00 No Dose Unknown 2022-0 3-09 00:00: 00 No Dose Unknown 2022-0 3-09 00:00: 00 No Dose Unknown 2022-0 3-09 00:00: 00 No Dose Unknown 2022-0 3-09 00:00: 00 No Dose Unknown 2022-0 3-09 00:00: 00 No Dose Unknown 2022-0 3-09 00:00: 00 No Dose Unknown 2022-0 3-09 00:00: 00 No Dose Unknown 2022-0 3-09 00:00: 00 No Dose Unknown 2022-0 3-09 00:00: 00 No Dose Unknown 2022-0 3-09 00:00: 00 No Dose Unknown 2022-0 3-09 00:00: 00 No Dose Unknown 2022-0 3-09 00:00: 00 No Dose Unknown 2022-0 3-09 00:00: 00 No Dose Unknown 2022-0 3-09 00:00: 00 No Dose Unknown 2022-0 3-09 00:00: 00 No Dose Unknown 2022-0 3-09 00:00: 00 No Dose Unknown 2022-0 3-09 00:00: 00 No Dose Unknown 2022-0 3-09 00:00: 00 No Dose Unknown 2022-0 3-09 00:00: 00 No Dose Unknown 2022-0 3-09 00:00: 00 No Dose Unknown 2022-0 3-09 00:00: 00 No Dose Unknown 2022-0 3-09 00:00: 00 No Dose Unknown 2022-0 3-09 00:00: 00 No Dose Unknown 2022-0 3-09 00:00: 00 No Dose Unknown 2022-0 3-09 00:00: 00 No Dose Unknown 2022-0 3-09 00:00: 00 No Dose Unknown 2022-0 3-09 00:00: 00 No Dose Unknown 2022-0 3-09 00:00: 00 No Dose Unknown 2022-0 3-09 00:00: 00 No Dose Unknown 2022-0 3-09 00:00: 00 No Dose Unknown 2022-0 3-09 00:00: 00 No Dose Unknown 2022-0 3-09 00:00: 00 No Dose Unknown 2022-0 3-09 00:00: 00 No Dose Unknown 2022-0 3-09 00:00: 00 No Dose Unknown 2022-0 3-09 00:00: 00 No Dose Unknown 2022-0 3-09 00:00: 00 No Dose Unknown 2022-0 3-09 00:00: 00 No Dose Unknown 2022-0 3-09 00:00: 00 No Dose Unknown 2022-0 3-09 00:00: 00 No Dose Unknown 2022-0 3-09 00:00: 00 No Dose Unknown 2022-0 3-09 00:00: 00 No Dose Unknown 2022-0 3-09 00:00: 00 No Dose Unknown 2022-0 3-09 00:00: 00 No Dose Unknown 2022-0 3-09 00:00: 00 No Dose Unknown 2022-0 3-09 00:00: 00 No Dose Unknown 2022-0 3-09 00:00: 00 No Dose Unknown 2022-0 3-09 00:00: 00 No Dose Unknown 2022-0 3-09 00:00: 00 No Dose Unknown 2022-0 3-09 00:00: 00 No Dose Unknown 2022-0 3-09 00:00: 00 No Dose Unknown 2022-0 3-09 00:00: 00 No Dose Unknown 2022-0 3-09 00:00: 00 No Dose Unknown 2022-0 3-09 00:00: 00 No Dose Unknown 2022-0 3-09 00:00: 00 No Dose Unknown 2022-0 3-09 00:00: 00 No Dose Unknown 2022-0 3-09 00:00: 00 No Dose Unknown 2022-0 3-09 00:00: 00 No Dose Unknown 2022-0 3-09 00:00: 00 No Dose Unknown 2022-0 3-09 00:00: 00 No Dose Unknown 2022-0 3-09 00:00: 00 No Dose Unknown 2022-0 3-09 00:00: 00 No Dose Unknown 2022-0 3-09 00:00: 00 No Dose Unknown 2022-0 3-09 00:00: 00 No Dose Unknown 2022-0 3-09 00:00: 00 No Dose Unknown 2022-0 3-09 00:00: 00 No Dose Unknown 2022-0 3-09 00:00: 00 No Dose Unknown 2022-0 3-09 00:00: 00 No Dose Unknown 2022-0 3-09 00:00: 00 No Dose Unknown 2022-0 3-09 00:00: 00 No Dose Unknown 2022-0 3-09 00:00: 00 No Dose Unknown 2022-0 3-09 00:00: 00 No Dose Unknown 2022-0 3-09 00:00: 00 No Dose Unknown 2022-0 3-09 00:00: 00 No Dose Unknown 2022-0 3-09 00:00: 00 No Dose Unknown 2022-0 3-09 00:00: 00 No Dose Unknown 2022-0 3-09 00:00: 00 No Dose Unknown 2022-0 3-09 00:00: 00 No Dose Unknown 2022-0 3-09 00:00: 00 No Dose Unknown 2022-0 3-09 00:00: 00 No Dose Unknown 2022-0 3-09 00:00: 00 No Dose Unknown 2022-0 3-09 00:00: 00 No Dose Unknown 2022-0 3-09 00:00: 00 No Dose Unknown 2022-0 3-09 00:00: 00 No Dose Unknown 2022-0 3-09 00:00: 00 No Dose Unknown 2022-0 3-09 00:00: 00 No Dose Unknown 2022-0 3-09 00:00: 00 No Dose Unknown 2022-0 3-09 00:00: 00 No Dose Unknown 2022-0 3-09 00:00: 00 No Dose Unknown 2022-0 3-09 00:00: 00 No Dose Unknown 2022-0 3-09 00:00: 00 No Dose Unknown 2022-0 3-09 00:00: 00 No Dose Unknown 2022-0 3-09 00:00: 00 No Dose Unknown 2022-0 3-09 00:00: 00 No Dose Unknown 2022-0 3-09 00:00: 00 No Dose Unknown 2022-0 3-09 00:00: 00 No Dose Unknown 2022-0 3-09 00:00: 00 No Dose Unknown 2022-0 3-09 00:00: 00 No Dose Unknown 2022-0 3-09 00:00: 00 No Dose Unknown 2022-0 3-09 00:00: 00 No Dose Unknown 2022-0 3-09 00:00: 00 No Dose Unknown 2022-0 3-09 00:00: 00 No Dose Unknown 2022-0 3-09 00:00: 00 No Dose Unknown 2022-0 3-09 00:00: 00 No Dose Unknown 2022-0 3-09 00:00: 00 No Dose Unknown 2022-0 3-09 00:00: 00 No Dose Unknown 2022-0 3-09 00:00: 00 No Dose Unknown 2022-0 3-09 00:00: 00 No Dose Unknown 2022-0 3-09 00:00: 00 No Dose Unknown 2022-0 3-09 00:00: 00 No Dose Unknown 2022-0 3-09 00:00: 00 No Dose Unknown 2022-0 3-09 00:00: 00 No Dose Unknown 2022-0 3-09 00:00: 00 No Dose Unknown 2022-0 3-09 00:00: 00 No Dose Unknown 2022-0 3-09 00:00: 00 No Dose Unknown 2022-0 3-09 00:00: 00 No Dose Unknown 2022-0 3-09 00:00: 00 No Dose Unknown 2022-0 3-09 00:00: 00 No Dose Unknown 2022-0 3-09 00:00: 00 No Dose Unknown 2022-0 3-09 00:00: 00 No Dose Unknown 2022-0 3-09 00:00: 00 No Dose Unknown 2022-0 3-09 00:00: 00 No Dose Unknown 2022-0 3-09 00:00: 00 No Dose Unknown 2022-0 3-09 00:00: 00 No Dose Unknown 2022-0 3-09 00:00: 00 No Dose Unknown 2022-0 3-09 00:00: 00 No Dose Unknown 2022-0 3-09 00:00: 00 No Dose Unknown 2022-0 3-09 00:00: 00 No Dose Unknown 2022-0 3-09 00:00: 00 No Dose Unknown 2022-0 3-09 00:00: 00 No Dose Unknown 2022-0 3-09 00:00: 00 No Dose Unknown 2022-0 3-09 00:00: 00 No Dose Unknown 2022-0 3-09 00:00: 00 No Dose Unknown 2022-0 3-09 00:00: 00 No Dose Unknown 2022-0 3-09 00:00: 00 No Dose Unknown 2022-0 3-09 00:00: 00 No Dose Unknown 2022-0 3-09 00:00: 00 No Dose Unknown 2022-0 3-09 00:00: 00 No Dose Unknown 2022-0 3-09 00:00: 00 No Dose Unknown 2022-0 3-09 00:00: 00 No Dose Unknown 2022-0 3-09 00:00: 00 No Dose Unknown 2022-0 3-09 00:00: 00 No Dose Unknown 2022-0 3-09 00:00: 00 No Dose Unknown 2022-0 3-09 00:00: 00 No Dose Unknown 2022-0 3-09 00:00: 00 No Dose Unknown 2022-0 3-09 00:00: 00 No Dose Unknown 2022-0 3-09 00:00: 00 No Dose Unknown 2022-0 3-09 00:00: 00 No Dose Unknown 2022-0 3-09 00:00: 00 No Dose Unknown 2022-0 3-09 00:00: 00 No Dose Unknown 2022-0 3-09 00:00: 00 No Dose Unknown 2022-0 3-09 00:00: 00 No Dose Unknown 2022-0 3-09 00:00: 00 No Dose Unknown 2022-0 3-09 00:00: 00 No Dose Unknown 2022-0 3-09 00:00: 00 No Dose Unknown 2022-0 3-09 00:00: 00 No Dose Unknown 2022-0 3-09 00:00: 00 No Dose Unknown 2022-0 3-09 00:00: 00 No Dose Unknown 2022-0 3-09 00:00: 00 No Dose Unknown 2022-0 3-09 00:00: 00 No Dose Unknown 2022-0 3-09 00:00: 00 No Dose Unknown 2022-0 3-09 00:00: 00 No Dose Unknown 2022-0 3-09 00:00: 00 No Dose Unknown 2022-0 3-09 00:00: 00 No Dose Unknown 2022-0 3-09 00:00: 00 No Dose Unknown 2022-0 3-09 00:00: 00 No Dose Unknown 2022-0 3-09 00:00: 00 No Dose Unknown 2022-0 3-09 00:00: 00 No Dose Unknown 2022-0 3-09 00:00: 00 No Dose Unknown 2022-0 3-09 00:00: 00 No Dose Unknown 2022-0 3-09 00:00: 00 No Dose Unknown 2022-0 3-09 00:00: 00 No Dose Unknown 2022-0 3-09 00:00: 00 No Dose Unknown 2022-0 3-09 00:00: 00 No Dose Unknown 2022-0 3-09 00:00: 00 No Dose Unknown 2022-0 3-09 00:00: 00 No Dose Unknown 2022-0 3-09 00:00: 00 No Dose Unknown 2022-0 3-09 00:00: 00 No Dose Unknown 2022-0 3-09 00:00: 00 No Dose Unknown 2022-0 3-09 00:00: 00 No Dose Unknown 2022-0 3-09 00:00: 00 No Dose Unknown 2022-0 3-09 00:00: 00 No Dose Unknown 2022-0 3-09 00:00: 00 No Dose Unknown 2022-0 3-09 00:00: 00 No Dose Unknown 2022-0 3-09 00:00: 00 No Dose Unknown 2022-0 3-09 00:00: 00 No Dose Unknown 2022-0 3-09 00:00: 00 No Dose Unknown 2022-0 3-09 00:00: 00 No Dose Unknown 2022-0 3-09 00:00: 00 No Dose Unknown 2022-0 3-09 00:00: 00 No Dose Unknown 2022-0 3-09 00:00: 00 No Dose Unknown 2022-0 3-09 00:00: 00 No Dose Unknown 2022-0 3-09 00:00: 00 No Dose Unknown 2022-0 3-09 00:00: 00 No Dose Unknown 2022-0 3-09 00:00: 00 No Dose Unknown 2022-0 3-09 00:00: 00 No Dose Unknown 2022-0 3-09 00:00: 00 No Dose Unknown 2022-0 3-09 00:00: 00 No Dose Unknown 2022-0 3-09 00:00: 00 No Dose Unknown 2022-0 3-09 00:00: 00 No Dose Unknown 2022-0 3-09 00:00: 00 No Dose Unknown 2022-0 3-09 00:00: 00 No Dose Unknown 2022-0 3-09 00:00: 00 No Dose Unknown 2022-0 3-09 00:00: 00 No Dose Unknown 2022-0 3-09 00:00: 00 No Dose Unknown 2022-0 3-09 00:00: 00 No Dose Unknown 2022-0 3-09 00:00: 00 No Dose Unknown 2022-0 3-09 00:00: 00 No Dose Unknown 2022-0 3-09 00:00: 00 No Dose Unknown 2022-0 3-09 00:00: 00 No Dose Unknown 2022-0 3-09 00:00: 00 No Dose Unknown 2022-0 3-09 00:00: 00 No Dose Unknown 2022-0 3-09 00:00: 00 No Dose Unknown 2022-0 3-09 00:00: 00 No Dose Unknown 2022-0 3-09 00:00: 00 No Dose Unknown 2022-0 3-09 00:00: 00 No Dose Unknown 2022-0 3-09 00:00: 00 No Dose Unknown 2022-0 3-09 00:00: 00 No Dose Unknown 2022-0 3-09 00:00: 00 No Dose Unknown 2022-0 3-09 00:00: 00 No Dose Unknown 2022-0 3-09 00:00: 00 No Dose Unknown 2022-0 3-09 00:00: 00 No Dose Unknown 2022-0 3-09 00:00: 00 No Dose Unknown 2022-0 3-09 00:00: 00 No Dose Unknown 2022-0 3-09 00:00: 00 No Dose Unknown 2022-0 3-09 00:00: 00 No Dose Unknown 2022-0 3-09 00:00: 00 No Dose Unknown 2022-0 3-09 00:00: 00 No Dose Unknown 2022-0 3-09 00:00: 00 No Dose Unknown 2022-0 3-09 00:00: 00 No Dose Unknown 2022-0 3-09 00:00: 00 No Dose Unknown 2022-0 3-09 00:00: 00 No Dose Unknown 2022-0 3-09 00:00: 00 No Dose Unknown 2022-0 3-09 00:00: 00 No Dose Unknown 2022-0 3-09 00:00: 00 No Dose Unknown 2022-0 3-09 00:00: 00 No Dose Unknown 2022-0 3-09 00:00: 00 No Dose Unknown 2022-0 3-09 00:00: 00 No Dose Unknown 2022-0 3-09 00:00: 00 No Dose Unknown 2022-0 3-09 00:00: 00 No Dose Unknown 2022-0 3-09 00:00: 00 No Dose Unknown 2022-0 3-09 00:00: 00 No Dose Unknown 2022-0 3-09 00:00: 00 No Dose Unknown 2022-0 3-09 00:00: 00 No Dose Unknown 2022-0 3-09 00:00: 00 No Dose Unknown 2022-0 3-09 00:00: 00 No Dose Unknown 2022-0 3-09 00:00: 00 No Dose Unknown 2022-0 3-09 00:00: 00 No Dose Unknown 2022-0 3-09 00:00: 00 No Dose Unknown 2022-0 3-09 00:00: 00 No Dose Unknown 2022-0 3-09 00:00: 00 No Dose Unknown 2022-0 3-09 00:00: 00 No Dose Unknown 2022-0 3-09 00:00: 00 No Dose Unknown 2022-0 3-09 00:00: 00 No Dose Unknown 2022-0 3-09 00:00: 00 No Dose Unknown 2022-0 3-09 00:00: 00 No Dose Unknown 2022-0 3-09 00:00: 00 No Dose Unknown 2022-0 3-09 00:00: 00 No Dose Unknown 2022-0 3-09 00:00: 00 No Dose Unknown 2022-0 3-09 00:00: 00 No Dose Unknown 2022-0 3-09 00:00: 00 No Dose Unknown 2022-0 3-09 00:00: 00 No Dose Unknown 2022-0 3-09 00:00: 00 No Dose Unknown 2022-0 3-09 00:00: 00 No Dose Unknown 2022-0 3-09 00:00: 00 No Dose Unknown 2022-0 3-09 00:00: 00 No Dose Unknown 2022-0 3-09 00:00: 00 No Dose Unknown 2022-0 3-09 00:00: 00 No Dose Unknown 2022-0 3-09 00:00: 00 No Dose Unknown 2022-0 3-09 00:00: 00 No Dose Unknown 2022-0 3-09 00:00: 00 No Dose Unknown 2022-0 3-09 00:00: 00 No Dose Unknown 2022-0 3-09 00:00: 00 No Dose Unknown 2022-0 3-09 00:00: 00 No Dose Unknown 2022-0 3-09 00:00: 00 No Dose Unknown 2022-0 3-09 00:00: 00 No Dose Unknown 2022-0 3-09 00:00: 00 No Dose Unknown 2022-0 3-09 00:00: 00 No Dose Unknown 2022-0 3-09 00:00: 00 No Dose Unknown 2022-0 3-09 00:00: 00 No Dose Unknown 2022-0 3-09 00:00: 00 No Dose Unknown 2022-0 3-09 00:00: 00 No Dose Unknown 2022-0 3-09 00:00: 00 No Dose Unknown 2022-0 3-09 00:00: 00 No Dose Unknown 2022-0 3-09 00:00: 00 No Dose Unknown 2022-0 3-09 00:00: 00 No Dose Unknown 2022-0 3-09 00:00: 00 No Dose Unknown 2022-0 3-09 00:00: 00 No Dose Unknown 2022-0 3-09 00:00: 00 No tiotropium 18 mcg inhalation 2021-0 1-13 00:00: 00 Yes [id number] 18ug Inhale 1 capsule daily. [facility] albuterol 90 mcg/actuati on inhaler 2021-0 1-13 00:00: 00 Yes [id number] 2{puff} Inhale 2 Puffs every 6 (six) hours as needed for Wheezing or Shortness of Breath. [facility] tiotropium 18 mcg inhalation 2021-0 1-13 00:00: 00 Yes [id number] 18ug Inhale 1 capsule daily. [facility] albuterol 90 mcg/actuati on inhaler 2021-0 1-13 00:00: 00 Yes [id number] 2{puff} Inhale 2 Puffs every 6 (six) hours as needed for Wheezing or Shortness of Breath. [facility] tiotropium 18 mcg inhalation 11-30 00:00: 00 Yes [id number] 18ug Inhale 1 capsule daily. [facility] albuterol 90 mcg/actuati on inhaler 11-30 00:00: 00 Yes [id number] 2{puff} Inhale 2 Puffs every 6 (six) hours as needed for Wheezing or Shortness of Breath. [facility] tiotropium 18 mcg inhalation 11-30 00:00: 00 Yes [id number] 18ug Inhale 1 capsule daily. [facility] albuterol 90 mcg/actuati on inhaler 11-30 00:00: 00 Yes [id number] 2{puff} Inhale 2 Puffs every 6 (six) hours as needed for Wheezing or Shortness of Breath. [facility] tiotropium 18 mcg inhalation 11-30 00:00: 00 Yes [id number] 18ug Inhale 1 capsule daily. [facility] albuterol 90 mcg/actuati on inhaler 11-30 00:00: 00 Yes [id number] 2{puff} Inhale 2 Puffs every 6 (six) hours as needed for Wheezing or Shortness of Breath. [facility] tiotropium 18 mcg inhalation 11-30 00:00: 00 Yes [id number] 18ug Inhale 1 capsule daily. [facility] albuterol 90 mcg/actuati on inhaler 11-30 00:00: 00 Yes [id number] 2{puff} Inhale 2 Puffs every 6 (six) hours as needed for Wheezing or Shortness of Breath. [facility] tiotropium 18 mcg inhalation 11-30 00:00: 00 Yes [id number] 18ug Inhale 1 capsule daily. [facility] albuterol 90 mcg/actuati on inhaler 11-30 00:00: 00 Yes [id number] 2{puff} Inhale 2 Puffs every 6 (six) hours as needed for Wheezing or Shortness of Breath. [facility] tiotropium 18 mcg inhalation 11-30 00:00: 00 Yes [id number] 18ug Inhale 1 capsule daily. [facility] albuterol 90 mcg/actuati on inhaler 11-30 00:00: 00 Yes [id number] 2{puff} Inhale 2 Puffs every 6 (six) hours as needed for Wheezing or Shortness of Breath. [facility] gabapentin 100 mg capsule 11-22 00:00: 00 05-01 00:00 :00 No [id number] 100mg Take 1 capsule by mouth 3 (three) times daily. [facility] gabapentin 100 mg capsule 11-22 00:00: 00 05-01 00:00 :00 No [id number] 100mg Take 1 capsule by mouth 3 (three) times daily. [facility] simvastatin 20 mg tablet 2020-11 00:00: 00 No 1mg simvastatin 20 mg tablet 2020-11 00:00: 00 No 1mg simvastatin 20 mg tablet 2020-11 00:00: 00 No 1mg simvastatin 20 mg tablet 2020-11 00:00: 00 No 1mg simvastatin 20 mg tablet 2020-11 00:00: 00 No 1mg simvastatin 20 mg tablet 2020-11 00:00: 00 No 1mg meloxicam 15 mg tablet 2020-11 00:00: 00 No 1mg metformin ER 500 mg tablet,exte nded release 24 hr 2020-11 00:00: 00 No 1mg meloxicam 15 mg tablet 2020-11 00:00: 00 No 1mg metformin ER 500 mg tablet,exte nded release 24 hr 2020-11 00:00: 00 No 1mg meloxicam 15 mg tablet 2020-11 00:00: 00 No 1mg metformin ER 500 mg tablet,exte nded release 24 hr 2020-11 00:00: 00 No 1mg meloxicam 15 mg tablet 2020-11 0 00:00: 00 No 1mg metformin ER 500 mg tablet,exte nded release 24 hr 2020-11 0- 00:00: 00 No 1mg meloxicam 15 mg tablet 2020-11 0- 00:00: 00 No 1mg metformin ER 500 mg tablet,exte nded release 24 hr 2020-11 0- 00:00: 00 No 1mg meloxicam 15 mg tablet 2020-11 0- 00:00: 00 No 1mg metformin ER 500 mg tablet,exte nded release 24 hr 2020-11 0 00:00: 00 No 1mg MELOXICAM ORAL 2020-11 019 13:28: 42 Yes Take by mouth. [facility] MELOXICAM ORAL 2020-11 0 13:28: 42 Yes Take by mouth. [facility] MELOXICAM ORAL 2020-11 0 13:28: 42 Yes Take by mouth. [facility] MELOXICAM ORAL 2020-11 0 13:28: 42 Yes Take by mouth. [facility] MELOXICAM ORAL 2020-11 0 13:28: 42 Yes Take by mouth. [facility] MELOXICAM ORAL 2020-11 0 13:28: 42 Yes Take by mouth. [facility] MELOXICAM ORAL 2020-11 0 13:28: 42 Yes Take by mouth. [facility] MELOXICAM ORAL 2020-11 0 13:28: 42 Yes Take by mouth. [facility] Halobetasol Propionate 0.05 % ointment 08-10 00:00: 00 Yes [id number] Apply to area(s) 2 (two) times daily. [facility] clobetasoL 0.05 % external solution 08-10 00:00: 00 Yes [id number] Apply to area(s) 2 (two) times daily. For scalp [facility] Halobetasol Propionate 0.05 % ointment 08-10 00:00: 00 Yes [id number] Apply to area(s) 2 (two) times daily. [facility] clobetasoL 0.05 % external solution 0 08-10 00:00: 00 Yes [id number] Apply to area(s) 2 (two) times daily. For scalp [facility] Halobetasol Propionate 0.05 % ointment 0 08-10 00:00: 00 Yes [id number] Apply to area(s) 2 (two) times daily. [facility] clobetasoL 0.05 % external solution 0 08-10 00:00: 00 Yes [id number] Apply to area(s) 2 (two) times daily. For scalp [facility] Halobetasol Propionate 0.05 % ointment 0 08-10 00:00: 00 Yes [id number] Apply to area(s) 2 (two) times daily. [facility] clobetasoL 0.05 % external solution 0 08-10 00:00: 00 Yes [id number] Apply to area(s) 2 (two) times daily. For scalp [facility] Halobetasol Propionate 0.05 % ointment 0 08-10 00:00: 00 Yes [id number] Apply to area(s) 2 (two) times daily. [facility] clobetasoL 0.05 % external solution 0 08-10 00:00: 00 Yes [id number] Apply to area(s) 2 (two) times daily. For scalp [facility] Halobetasol Propionate 0.05 % ointment 2020-0 08-10 00:00: 00 Yes [id number] Apply to area(s) 2 (two) times daily. [facility] clobetasoL 0.05 % external solution 0 08-10 00:00: 00 Yes [id number] Apply to area(s) 2 (two) times daily. For scalp [facility] Halobetasol Propionate 0.05 % ointment 2020-0 08-10 00:00: 00 Yes [id number] Apply to area(s) 2 (two) times daily. [facility] clobetasoL 0.05 % external solution 0 08-10 00:00: 00 Yes [id number] Apply to area(s) 2 (two) times daily. For scalp [facility] Halobetasol Propionate 0.05 % ointment 0 08-10 00:00: 00 Yes [id number] Apply to area(s) 2 (two) times daily. [facility] clobetasoL 0.05 % external solution 0 08-10 00:00: 00 Yes [id number] Apply to area(s) 2 (two) times daily. For scalp [facility] Halobetasol Propionate 0.05 % ointment 08-10 00:00: 00 Yes [id number] Apply to area(s) 2 (two) times daily. [facility] clobetasoL 0.05 % external solution 0 08-10 00:00: 00 Yes [id number] Apply to area(s) 2 (two) times daily. For scalp [facility] Halobetasol Propionate 0.05 % ointment 0 08-10 00:00: 00 Yes [id number] Apply to area(s) 2 (two) times daily. [facility] clobetasoL 0.05 % external solution 0 08-10 00:00: 00 Yes [id number] Apply to area(s) 2 (two) times daily. For scalp [facility] hydrocortis one 2.5 % topical cream 2020-0 8 00:00: 00 No 1% hydrocortis one 2.5 % topical cream 2020-0 825 00:00: 00 No 1% hydrocortis one 2.5 % topical cream 2020-0 8-25 00:00: 00 No 1% hydrocortis one 2.5 % topical cream 2020-0 8-25 00:00: 00 No 1% hydrocortis one 2.5 % topical cream 2020-0 8-25 00:00: 00 No 1% hydrocortis one 2.5 % topical cream 2020-0 825 00:00: 00 No 1% clobetasoL 0.05 % cream 05-18 00:00: 00 Yes [id number] Apply to area(s) 2 (two) times daily. Apply to scalp, ears and buttocks (avoid creases) [facility] ketoconazol e 2 % cream 05-18 00:00: 00 Yes [id number] Apply to area(s) 2 (two) times daily. Apply to creases with tacrolimus (Protopic) [facility] hydrOXYzine 25 mg tablet 05-18 00:00: 00 Yes [id number] 25mg Take 1 tablet by mouth at bedtime as needed for Itching. [facility] clobetasoL 0.05 % cream 05-18 00:00: 00 Yes [id number] Apply to area(s) 2 (two) times daily. Apply to scalp, ears and buttocks (avoid creases) [facility] ketoconazol e 2 % cream 05-18 00:00: 00 Yes [id number] Apply to area(s) 2 (two) times daily. Apply to creases with tacrolimus (Protopic) [facility] hydrOXYzine 25 mg tablet 05-18 00:00: 00 Yes [id number] 25mg Take 1 tablet by mouth at bedtime as needed for Itching. [facility] clobetasoL 0.05 % cream 05-18 00:00: 00 Yes [id number] Apply to area(s) 2 (two) times daily. Apply to scalp, ears and buttocks (avoid creases) [facility] ketoconazol e 2 % cream 05-18 00:00: 00 Yes [id number] Apply to area(s) 2 (two) times daily. Apply to creases with tacrolimus (Protopic) [facility] hydrOXYzine 25 mg tablet 05-18 00:00: 00 Yes [id number] 25mg Take 1 tablet by mouth at bedtime as needed for Itching. [facility] clobetasoL 0.05 % cream 05-18 00:00: 00 Yes [id number] Apply to area(s) 2 (two) times daily. Apply to scalp, ears and buttocks (avoid creases) [facility] ketoconazol e 2 % cream 05-18 00:00: 00 Yes [id number] Apply to area(s) 2 (two) times daily. Apply to creases with tacrolimus (Protopic) [facility] hydrOXYzine 25 mg tablet 05-18 00:00: 00 Yes [id number] 25mg Take 1 tablet by mouth at bedtime as needed for Itching. [facility] clobetasoL 0.05 % cream 05-18 00:00: 00 Yes [id number] Apply to area(s) 2 (two) times daily. Apply to scalp, ears and buttocks (avoid creases) [facility] ketoconazol e 2 % cream 05-18 00:00: 00 Yes [id number] Apply to area(s) 2 (two) times daily. Apply to creases with tacrolimus (Protopic) [facility] hydrOXYzine 25 mg tablet 05-18 00:00: 00 Yes [id number] 25mg Take 1 tablet by mouth at bedtime as needed for Itching. [facility] clobetasoL 0.05 % cream 05-18 00:00: 00 Yes [id number] Apply to area(s) 2 (two) times daily. Apply to scalp, ears and buttocks (avoid creases) [facility] ketoconazol e 2 % cream 05-18 00:00: 00 Yes [id number] Apply to area(s) 2 (two) times daily. Apply to creases with tacrolimus (Protopic) [facility] hydrOXYzine 25 mg tablet 05-18 00:00: 00 Yes [id number] 25mg Take 1 tablet by mouth at bedtime as needed for Itching. [facility] clobetasoL 0.05 % cream 05-18 00:00: 00 Yes [id number] Apply to area(s) 2 (two) times daily. Apply to scalp, ears and buttocks (avoid creases) [facility] ketoconazol e 2 % cream 05-18 00:00: 00 Yes [id number] Apply to area(s) 2 (two) times daily. Apply to creases with tacrolimus (Protopic) [facility] hydrOXYzine 25 mg tablet 05-18 00:00: 00 Yes [id number] 25mg Take 1 tablet by mouth at bedtime as needed for Itching. [facility] clobetasoL 0.05 % cream 05-18 00:00: 00 Yes [id number] Apply to area(s) 2 (two) times daily. Apply to scalp, ears and buttocks (avoid creases) [facility] ketoconazol e 2 % cream 05-18 00:00: 00 Yes [id number] Apply to area(s) 2 (two) times daily. Apply to creases with tacrolimus (Protopic) [facility] hydrOXYzine 25 mg tablet 05-18 00:00: 00 Yes [id number] 25mg Take 1 tablet by mouth at bedtime as needed for Itching. [facility] clobetasoL 0.05 % cream 05-18 00:00: 00 Yes [id number] Apply to area(s) 2 (two) times daily. Apply to scalp, ears and buttocks (avoid creases) [facility] ketoconazol e 2 % cream 05-18 00:00: 00 Yes [id number] Apply to area(s) 2 (two) times daily. Apply to creases with tacrolimus (Protopic) [facility] hydrOXYzine 25 mg tablet 05-18 00:00: 00 Yes [id number] 25mg Take 1 tablet by mouth at bedtime as needed for Itching. [facility] clobetasoL 0.05 % cream 05-18 00:00: 00 Yes [id number] Apply to area(s) 2 (two) times daily. Apply to scalp, ears and buttocks (avoid creases) [facility] ketoconazol e 2 % cream 05-18 00:00: 00 Yes [id number] Apply to area(s) 2 (two) times daily. Apply to creases with tacrolimus (Protopic) [facility] hydrOXYzine 25 mg tablet 05-18 00:00: 00 Yes [id number] 25mg Take 1 tablet by mouth at bedtime as needed for Itching. [facility] ciprofloxac in-dexameth asone 0.3-0.1 % otic drops 04-15 00:00: 00 Yes [id number] 2[drp] Place 2 Drops in both ears 2 (two) times daily. [facility] ciprofloxac in-dexameth asone 0.3-0.1 % otic drops 04-15 00:00: 00 Yes [id number] 2[drp] Place 2 Drops in both ears 2 (two) times daily. [facility] ciprofloxac in-dexameth asone 0.3-0.1 % otic drops 04-15 00:00: 00 Yes [id number] 2[drp] Place 2 Drops in both ears 2 (two) times daily. [facility] ciprofloxac in-dexameth asone 0.3-0.1 % otic drops 04-15 00:00: 00 Yes [id number] 2[drp] Place 2 Drops in both ears 2 (two) times daily. [facility] ciprofloxac in-dexameth asone 0.3-0.1 % otic drops 04-15 00:00: 00 Yes [id number] 2[drp] Place 2 Drops in both ears 2 (two) times daily. [facility] ciprofloxac in-dexameth asone 0.3-0.1 % otic drops 04-15 00:00: 00 Yes [id number] 2[drp] Place 2 Drops in both ears 2 (two) times daily. [facility] ciprofloxac in-dexameth asone 0.3-0.1 % otic drops 04-15 00:00: 00 Yes [id number] 2[drp] Place 2 Drops in both ears 2 (two) times daily. [facility] ciprofloxac in-dexameth asone 0.3-0.1 % otic drops 0 04-15 00:00: 00 Yes [id number] 2[drp] Place 2 Drops in both ears 2 (two) times daily. [facility] ciprofloxac in-dexameth asone 0.3-0.1 % otic drops 0 04-15 00:00: 00 Yes [id number] 2[drp] Place 2 Drops in both ears 2 (two) times daily. [facility] ciprofloxac in-dexameth asone 0.3-0.1 % otic drops 04-15 00:00: 00 Yes [id number] 2[drp] Place 2 Drops in both ears 2 (two) times daily. [facility] ondansetron 4 mg disintegrat ing tablet 2020-0 04-05 00:00: 00 Yes [facility] ondansetron 4 mg disintegrat ing tablet 2020-0 04-05 00:00: 00 Yes [facility] ondansetron 4 mg disintegrat ing tablet 2020-0 04-05 00:00: 00 Yes [facility] ondansetron 4 mg disintegrat ing tablet 2020-0 04-05 00:00: 00 Yes [facility] ondansetron 4 mg disintegrat ing tablet 2020-0 04-05 00:00: 00 Yes [facility] ondansetron 4 mg disintegrat ing tablet 2020-0 04-05 00:00: 00 Yes [facility] ondansetron 4 mg disintegrat ing tablet 2020-0 04-05 00:00: 00 Yes [facility] ondansetron 4 mg disintegrat ing tablet 2020-0 04-05 00:00: 00 Yes [facility] ondansetron 4 mg disintegrat ing tablet 2020-0 04-05 00:00: 00 Yes [facility] ondansetron 4 mg disintegrat ing tablet 2020-0 04-05 00:00: 00 Yes [facility] omeprazole 40 mg capsule 2020-0 17 00:00: 00 Yes [facility] omeprazole 40 mg capsule 2020-0 -17 00:00: 00 Yes [facility] omeprazole 40 mg capsule 1-0 17 00:00: 00 Yes [facility] omeprazole 40 mg capsule 2020-0 17 00:00: 00 Yes [facility] omeprazole 40 mg capsule 2020-0 17 00:00: 00 Yes [facility] omeprazole 40 mg capsule 2020-0 17 00:00: 00 Yes [facility] omeprazole 40 mg capsule 1-0 17 00:00: 00 Yes [facility] omeprazole 40 mg capsule 2020-0 17 00:00: 00 Yes [facility] omeprazole 40 mg capsule 2020-0 17 00:00: 00 Yes [facility] omeprazole 40 mg capsule 2020-0 17 00:00: 00 Yes [facility] hydroxyzine pamoate 25 mg capsule 0 03-13 00:00: 00 No 1mg hydroxyzine pamoate 25 mg capsule 2020-0 03-13 00:00: 00 No 1mg hydroxyzine pamoate 25 mg capsule 2020-0 03-13 00:00: 00 No 1mg hydroxyzine pamoate 25 mg capsule 2020-0 03-13 00:00: 00 No 1mg hydroxyzine pamoate 25 mg capsule 2020-0 03-13 00:00: 00 No 1mg hydroxyzine pamoate 25 mg capsule 2020-0 03-13 00:00: 00 No 1mg metformin ER 500 mg tablet,exte nded release 24 hr 2020-0 03-09 00:00: 00 No 1mg metformin ER 500 mg tablet,exte nded release 24 hr 2020-0 03-09 00:00: 00 No 1mg metformin ER 500 mg tablet,exte nded release 24 hr 2020-0 03-09 00:00: 00 No 1mg metformin ER 500 mg tablet,exte nded release 24 hr 2020-0 03-09 00:00: 00 No 1mg metformin ER 500 mg tablet,exte nded release 24 hr 03-09 00:00: 00 No 1mg metformin ER 500 mg tablet,exte nded release 24 hr 03-09 00:00: 00 No 1mg epinephrine 0.3 mg/0.3 mL injection syringe 03-08 00:00: 00 No 1mg/0.3 mL meloxicam 15 mg tablet 03-08 00:00: 00 No 1mg amlodipine 5 mg tablet 03-08 00:00: 00 No 1mg simvastatin 20 mg tablet 03-08 00:00: 00 No 1mg metformin 500 mg tablet 03-08 00:00: 00 No 1mg epinephrine 0.3 mg/0.3 mL injection syringe 03-08 00:00: 00 No 1mg/0.3 mL meloxicam 15 mg tablet 03-08 00:00: 00 No 1mg amlodipine 5 mg tablet 03-08 00:00: 00 No 1mg epinephrine 0.3 mg/0.3 mL injection syringe 03-08 00:00: 00 No 1mg/0.3 mL meloxicam 15 mg tablet 03-08 00:00: 00 No 1mg amlodipine 5 mg tablet 03-08 00:00: 00 No 1mg simvastatin 20 mg tablet 03-08 00:00: 00 No 1mg metformin 500 mg tablet 03-08 00:00: 00 No 1mg simvastatin 20 mg tablet 03-08 00:00: 00 No 1mg metformin 500 mg tablet 03-08 00:00: 00 No 1mg epinephrine 0.3 mg/0.3 mL injection syringe 03-08 00:00: 00 No 1mg/0.3 mL meloxicam 15 mg tablet 03-08 00:00: 00 No 1mg amlodipine 5 mg tablet 03-08 00:00: 00 No 1mg simvastatin 20 mg tablet 03-08 00:00: 00 No 1mg metformin 500 mg tablet 03-08 00:00: 00 No 1mg epinephrine 0.3 mg/0.3 mL injection syringe 03-08 00:00: 00 No 1mg/0.3 mL meloxicam 15 mg tablet 03-08 00:00: 00 No 1mg amlodipine 5 mg tablet 03-08 00:00: 00 No 1mg simvastatin 20 mg tablet 03-08 00:00: 00 No 1mg metformin 500 mg tablet 03-08 00:00: 00 No 1mg epinephrine 0.3 mg/0.3 mL injection syringe 03-08 00:00: 00 No 1mg/0.3 mL meloxicam 15 mg tablet 03-08 00:00: 00 No 1mg amlodipine 5 mg tablet 03-08 00:00: 00 No 1mg simvastatin 20 mg tablet 03-08 00:00: 00 No 1mg metformin 500 mg tablet 03-08 00:00: 00 No 1mg epinephrine 0.3 mg/0.3 mL injection syringe 02-07 00:00: 00 No 1(1.5 mL) epinephrine 0.3 mg/0.3 mL injection syringe 02-07 00:00: 00 No 1(1.5 mL) epinephrine 0.3 mg/0.3 mL injection syringe 02-07 00:00: 00 No 1(1.5 mL) epinephrine 0.3 mg/0.3 mL injection syringe 02-07 00:00: 00 No 1(1.5 mL) epinephrine 0.3 mg/0.3 mL injection syringe 02-07 00:00: 00 No 1(1.5 mL) epinephrine 0.3 mg/0.3 mL injection syringe 02-07 00:00: 00 No 1(1.5 mL) hydrocortis one 2.5 % cream 12-12 00:00: 00 Yes Apply to affected area(s) 2 (two) times daily. [facility] hydrocortis one 2.5 % cream 12-12 00:00: 00 Yes Apply to affected area(s) 2 (two) times daily. [facility] hydrocortis one 2.5 % cream 2020-0 12-12 00:00: 00 Yes Apply to affected area(s) 2 (two) times daily. [facility] hydrocortis one 2.5 % cream 2020-0 12-12 00:00: 00 Yes Apply to affected area(s) 2 (two) times daily. [facility] hydrocortis one 2.5 % cream 2020-0 12-12 00:00: 00 Yes Apply to affected area(s) 2 (two) times daily. [facility] hydrocortis one 2.5 % cream 0 12-12 00:00: 00 Yes Apply to affected area(s) 2 (two) times daily. [facility] hydrocortis one 2.5 % cream 0 12-12 00:00: 00 Yes Apply to affected area(s) 2 (two) times daily. [facility] hydrocortis one 2.5 % cream 0 12-12 00:00: 00 Yes Apply to affected area(s) 2 (two) times daily. [facility] hydrocortis one 2.5 % cream 0 12-12 00:00: 00 Yes Apply to affected area(s) 2 (two) times daily. [facility] hydrocortis one 2.5 % cream 0 12-12 00:00: 00 Yes Apply to affected area(s) 2 (two) times daily. [facility] erythromyci n 5 mg/gram (0.5 %) ophthalmic ointment 11-24 00:00: 00 Yes Apply to right eye every 6 (six) hours [facility] erythromyci n 5 mg/gram (0.5 %) ophthalmic ointment 11-24 00:00: 00 Yes Apply to right eye every 6 (six) hours [facility] erythromyci n 5 mg/gram (0.5 %) ophthalmic ointment 11-24 00:00: 00 Yes Apply to right eye every 6 (six) hours [facility] erythromyci n 5 mg/gram (0.5 %) ophthalmic ointment 11-24 00:00: 00 Yes Apply to right eye every 6 (six) hours [facility] erythromyci n 5 mg/gram (0.5 %) ophthalmic ointment 11-24 00:00: 00 Yes Apply to right eye every 6 (six) hours [facility] erythromyci n 5 mg/gram (0.5 %) ophthalmic ointment 11-24 00:00: 00 Yes Apply to right eye every 6 (six) hours [facility] erythromyci n 5 mg/gram (0.5 %) ophthalmic ointment 11-24 00:00: 00 Yes [facility]/gram (0.5 %) ophthalmic ointment 11-24 00:00: 00 Yes [facility] right [facility] 5 mg/gram (0.5 %) ophthalmic ointment 11-24 00:00: 00 Yes Apply to right eye every 6 (six) hours [facility] erythromyci n 5 mg/gram (0.5 %) ophthalmic ointment 11-24 00:00: 00 Yes Apply [facility] right [facility] 6 [facility] monoh[facility] 100 mg tablet 06-22 00:00: 00 No 1mg Symbicort 160 mcg-4.5 mcg/actuati on HFA aerosol inhaler 06-22 00:00: 00 No 1mcg/ac tuation risperidone 3 mg tablet 06-22 00:00: 00 No 1mg Prilosec OTC 20 mg tablet,wesley yed release 06-22 00:00: 00 No 1mg Norvasc 5 mg tablet 06-22 00:00: 00 No 1mg meloxicam 15 mg tablet 06-22 00:00: 00 No 1mg Singulair 10 mg tablet 06-22 00:00: 00 No 1mg Dose Unknown 06-22 00:00: 00 No Wellbutrin SR 100 mg tablet, 12 hr sustained-r elease 06-22 00:00: 00 No 1mg Topamax 100 mg tablet 06-22 00:00: 00 No 1mg hydroxyzine HCl 25 mg tablet 06-22 00:00: 00 No 1mg hydroxyzine HCl 50 mg tablet 06-22 00:00: 00 No 1mg doxepin 25 mg capsule 06-22 00:00: 00 No 1mg Prozac 20 mg capsule 06-22 00:00: 00 No 3mg Pentasa 500 mg capsule,con trolled release 06-22 00:00: 00 No 2mg Prozac 20 mg capsule 06-22 00:00: 00 No 1mg gabapentin 100 mg capsule 06-22 00:00: 00 No 1mg fluocinonid e 0.05 % topical solution 06-22 00:00: 00 No 1% Wellbutrin SR 100 mg tablet, 12 hr sustained-r elease 06-22 00:00: 00 No 1mg Topamax 100 mg tablet 06-22 00:00: 00 No 1mg hydroxyzine HCl 25 mg tablet 06-22 00:00: 00 No 1mg hydroxyzine HCl 50 mg tablet 06-22 00:00: 00 No 1mg doxepin 25 mg capsule 06-22 00:00: 00 No 1mg Prozac 20 mg capsule 06-22 00:00: 00 No 3mg Pentasa 500 mg capsule,con trolled release 06-22 00:00: 00 No 2mg Prozac 20 mg capsule 06-22 00:00: 00 No 1mg gabapentin 100 mg capsule 06-22 00:00: 00 No 1mg fluocinonid e 0.05 % topical solution 06-22 00:00: 00 No 1% Symbicort 160 mcg-4.5 mcg/actuati on HFA aerosol inhaler 06-22 00:00: 00 No 1mcg/ac tuation risperidone 3 mg tablet 06-22 00:00: 00 No 1mg Prilosec OTC 20 mg tablet,wesley yed release 06-22 00:00: 00 No 1mg Norvasc 5 mg tablet 06-22 00:00: 00 No 1mg meloxicam 15 mg tablet 06-22 00:00: 00 No 1mg Singulair 10 mg tablet 06-22 00:00: 00 No 1mg Dose Unknown 06-22 00:00: 00 No Wellbutrin SR 100 mg tablet, 12 hr sustained-r elease 06-22 00:00: 00 No 1mg Topamax 100 mg tablet 06-22 00:00: 00 No 1mg hydroxyzine HCl 25 mg tablet 06-22 00:00: 00 No 1mg hydroxyzine HCl 50 mg tablet 06-22 00:00: 00 No 1mg doxepin 25 mg capsule 06-22 00:00: 00 No 1mg Prozac 20 mg capsule 06-22 00:00: 00 No 3mg Pentasa 500 mg capsule,con trolled release 06-22 00:00: 00 No 2mg Prozac 20 mg capsule 06-22 00:00: 00 No 1mg gabapentin 100 mg capsule 06-22 00:00: 00 No 1mg fluocinonid e 0.05 % topical solution 06-22 00:00: 00 No 1% Symbicort 160 mcg-4.5 mcg/actuati on HFA aerosol inhaler 06-22 00:00: 00 No 1mcg/ac tuation Symbicort 160 mcg-4.5 mcg/actuati on HFA aerosol inhaler 06-22 00:00: 00 No 1mcg/ac tuation risperidone 3 mg tablet 06-22 00:00: 00 No 1mg Prilosec OTC 20 mg tablet,wesley yed release 06-22 00:00: 00 No 1mg Norvasc 5 mg tablet 06-22 00:00: 00 No 1mg meloxicam 15 mg tablet 06-22 00:00: 00 No 1mg Singulair 10 mg tablet 06-22 00:00: 00 No 1mg Dose Unknown 06-22 00:00: 00 No Wellbutrin SR 100 mg tablet, 12 hr sustained-r elease 06-22 00:00: 00 No 1mg Topamax 100 mg tablet 06-22 00:00: 00 No 1mg hydroxyzine HCl 25 mg tablet 06-22 00:00: 00 No 1mg hydroxyzine HCl 50 mg tablet 06-22 00:00: 00 No 1mg doxepin 25 mg capsule 06-22 00:00: 00 No 1mg Prozac 20 mg capsule 06-22 00:00: 00 No 3mg Pentasa 500 mg capsule,con trolled release 06-22 00:00: 00 No 2mg Prozac 20 mg capsule 06-22 00:00: 00 No 1mg gabapentin 100 mg capsule 06-22 00:00: 00 No 1mg fluocinonid e 0.05 % topical solution 06-22 00:00: 00 No 1% risperidone 3 mg tablet 06-22 00:00: 00 No 1mg Prilosec OTC 20 mg tablet,wesley yed release 06-22 00:00: 00 No 1mg Symbicort 160 mcg-4.5 mcg/actuati on HFA aerosol inhaler 06-22 00:00: 00 No 1mcg/ac tuation risperidone 3 mg tablet 06-22 00:00: 00 No 1mg Prilosec OTC 20 mg tablet,wesley yed release 06-22 00:00: 00 No 1mg Norvasc 5 mg tablet 06-22 00:00: 00 No 1mg meloxicam 15 mg tablet 06-22 00:00: 00 No 1mg Singulair 10 mg tablet 06-22 00:00: 00 No 1mg Dose Unknown 06-22 00:00: 00 No Wellbutrin SR 100 mg tablet, 12 hr sustained-r elease 06-22 00:00: 00 No 1mg Topamax 100 mg tablet 06-22 00:00: 00 No 1mg hydroxyzine HCl 25 mg tablet 06-22 00:00: 00 No 1mg hydroxyzine HCl 50 mg tablet 06-22 00:00: 00 No 1mg doxepin 25 mg capsule 06-22 00:00: 00 No 1mg Prozac 20 mg capsule 06-22 00:00: 00 No 3mg Pentasa 500 mg capsule,con trolled release 06-22 00:00: 00 No 2mg Prozac 20 mg capsule 06-22 00:00: 00 No 1mg gabapentin 100 mg capsule 06-22 00:00: 00 No 1mg fluocinonid e 0.05 % topical solution 06-22 00:00: 00 No 1% Norvasc 5 mg tablet 06-22 00:00: 00 No 1mg meloxicam 15 mg tablet 06-22 00:00: 00 No 1mg Symbicort 160 mcg-4.5 mcg/actuati on HFA aerosol inhaler 06-22 00:00: 00 No 1mcg/ac tuation risperidone 3 mg tablet 06-22 00:00: 00 No 1mg Prilosec OTC 20 mg tablet,wesley yed release 06-22 00:00: 00 No 1mg Norvasc 5 mg tablet 06-22 00:00: 00 No 1mg meloxicam 15 mg tablet 06-22 00:00: 00 No 1mg Singulair 10 mg tablet 06-22 00:00: 00 No 1mg Dose Unknown 06-22 00:00: 00 No Wellbutrin SR 100 mg tablet, 12 hr sustained-r elease 06-22 00:00: 00 No 1mg Topamax 100 mg tablet 06-22 00:00: 00 No 1mg hydroxyzine HCl 25 mg tablet 06-22 00:00: 00 No 1mg hydroxyzine HCl 50 mg tablet 06-22 00:00: 00 No 1mg doxepin 25 mg capsule 06-22 00:00: 00 No 1mg Prozac 20 mg capsule 06-22 00:00: 00 No 3mg Pentasa 500 mg capsule,con trolled release 06-22 00:00: 00 No 2mg Prozac 20 mg capsule 06-22 00:00: 00 No 1mg gabapentin 100 mg capsule 06-22 00:00: 00 No 1mg fluocinonid e 0.05 % topical solution 06-22 00:00: 00 No 1% Singulair 10 mg tablet 06-22 00:00: 00 No 1mg nystatin-tr iamcinolone cream 05-04 00:00: 00 Yes [id number] Apply to area(s) 2 (two) times daily. [facility] mometasone 0.1 % lotion 0 05-04 00:00: 00 Yes [id number] Apply to area(s) 2 (two) times daily. [facility] nystatin-tr iamcinolone cream 0 05-04 00:00: 00 Yes [id number] Apply to area(s) 2 (two) times daily. [facility] % [facility] 2019-0 05-04 00:00: 00 Yes [id number] Apply to area(s) 2 (two) times daily. [facility] nystatin-tr iamcinolone cream 0 17 00:00: 00 Yes [id number] Apply to area(s) 2 (two) times daily. [facility] mometasone 0.1 % lotion 2019-0 17 00:00: 00 Yes [id number] Apply to area(s) 2 (two) times daily. [facility] nystatin-tr iamcinolone cream 2019-0 17 00:00: 00 Yes [id number] Apply to area(s) 2 (two) times daily. [facility] mometasone 0.1 % lotion 2019-0 17 00:00: 00 Yes [id number] Apply to area(s) 2 (two) times daily. [facility] nystatin-tr iamcinolone cream 2019-0 17 00:00: 00 Yes [id number] Apply to area(s) 2 (two) times daily. [facility] mometasone 0.1 % lotion 2020-0 6-17 00:00: 00 Yes [id number] Apply to area(s) 2 (two) times daily. [facility] nystatin-tr iamcinolone cream 2020-0 6-17 00:00: 00 Yes [id number] Apply to area(s) 2 (two) times daily. [facility] mometasone 0.1 % lotion 2020-0 6-17 00:00: 00 Yes [id number] Apply to area(s) 2 (two) times daily. [facility] nystatin-tr iamcinolone cream 2020-0 6-17 00:00: 00 Yes [id number] Apply to area(s) 2 (two) times daily. [facility] mometasone 0.1 % lotion 2020-0 6-17 00:00: 00 Yes [id number] Apply to area(s) 2 (two) times daily. [facility] nystatin-tr iamcinolone cream 2020-0 6-17 00:00: 00 Yes [id number] Apply to area(s) 2 (two) times daily. [facility] mometasone 0.1 % lotion 2020-0 6-17 00:00: 00 Yes [id number] Apply to area(s) 2 (two) times daily. [facility] nystatin-tr iamcinolone cream 2020-0 6-17 00:00: 00 Yes [id number] Apply to area(s) 2 (two) times daily. [facility] mometasone 0.1 % lotion 2020-0 6-17 00:00: 00 Yes [id number] Apply to area(s) 2 (two) times daily. [facility] nystatin-tr iamcinolone cream 2020-0 6-17 00:00: 00 Yes [id number] Apply to area(s) 2 (two) times daily. [facility] mometasone 0.1 % lotion 2020-0 6-17 00:00: 00 Yes [id number] Apply to area(s) 2 (two) times daily. [facility] mometasone 0.1 % lotion 2020-0 4-06 00:00: 00 Yes [id number] Apply to area(s) daily. [facility] mometasone 0.1 % lotion 2020-0 - 00:00: 00 Yes [id number] Apply to area(s) daily. [facility] mometasone 0.1 % lotion 2020-0 - 00:00: 00 Yes [id number] Apply to area(s) daily. [facility] mometasone 0.1 % lotion 2020-0 - 00:00: 00 Yes [id number] Apply to area(s) daily. [facility] mometasone 0.1 % lotion 2020-0 02-21 00:00: 00 Yes [id number] Apply to area(s) daily. [facility] mometasone 0.1 % lotion 2020-0 02-21 00:00: 00 Yes [id number] Apply to area(s) daily. [facility] mometasone 0.1 % lotion 2020-0 02-21 00:00: 00 Yes [id number] Apply to area(s) daily. [facility] mometasone 0.1 % lotion 2020-0 02-21 00:00: 00 Yes [id number] Apply to area(s) daily. [facility] mometasone 0.1 % lotion 2020-0 02-21 00:00: 00 Yes [id number] Apply to area(s) daily. [facility] mometasone 0.1 % lotion 2020-0 02-21 00:00: 00 Yes [id number] Apply to area(s) daily. [facility] ciprofloxac in-dexameth asone 0.3-0.1 % otic drops 01-13 00:00: 00 Yes [id number] 2[drp] Place 2 Drops in both ears 2 (two) times daily. [facility] ciprofloxac in-dexameth asone 0.3-0.1 % otic drops 01-13 00:00: 00 Yes [id number] 2[drp] Place 2 Drops in both ears 2 (two) times daily. [facility] ciprofloxac in-dexameth asone 0.3-0.1 % otic drops 2020-0 - 00:00: 00 Yes [id number] 2[drp] Place 2 Drops in both ears 2 (two) times daily. [facility] ciprofloxac in-dexameth asone 0.3-0.1 % otic drops 2020-0 - 00:00: 00 Yes [id number] 2[drp] Place 2 Drops in both ears 2 (two) times daily. [facility] ciprofloxac in-dexameth asone 0.3-0.1 % otic drops 2020-0 - 00:00: 00 Yes [id number] 2[drp] Place 2 Drops in both ears 2 (two) times daily. [facility] ciprofloxac in-dexameth asone 0.3-0.1 % otic drops 2020-0 01-13 00:00: 00 Yes [id number] 2[drp] Place 2 Drops in both ears 2 (two) times daily. [facility] ciprofloxac in-dexameth asone 0.3-0.1 % otic drops 2020-0 01-13 00:00: 00 Yes [id number] 2[drp] Place 2 Drops in both ears 2 (two) times daily. [facility] ciprofloxac in-dexameth asone 0.3-0.1 % otic drops 2020-0 01-13 00:00: 00 Yes [id number] 2[drp] Place 2 Drops in both ears 2 (two) times daily. [facility] ciprofloxac in-dexameth asone 0.3-0.1 % otic drops 2020-0 -26 00:00: 00 Yes [id number] 2[drp] Place 2 Drops in both ears 2 (two) times daily. [facility] ciprofloxac in-dexameth asone 0.3-0.1 % otic drops 2020-0 2-26 00:00: 00 Yes [id number] 2[drp] Place 2 Drops in both ears 2 (two) times daily. [facility] Clobetasol Propionate 0.05 % shampoo 2020-0 2-12 00:00: 00 Yes [id number] Apply to area(s) 2 (two) times daily. [facility] Fluocinolon e Acetonide Oil (DERMOTIC OIL) 0.01 % otic drops 2020-0 2-12 00:00: 00 Yes [id number] 1[drp] Place 1 Drop in each ear 2 (two) times daily. [facility] Clobetasol Propionate 0.05 % shampoo 2020-0 2-12 00:00: 00 Yes [id number] Apply to area(s) 2 (two) times daily. [facility] Fluocinolon e Acetonide Oil (DERMOTIC OIL) 0.01 % otic drops 2020-0 2-12 00:00: 00 Yes [id number] 1[drp] Place 1 Drop in each ear 2 (two) times daily. [facility] Clobetasol Propionate 0.05 % shampoo 2020-0 2-12 00:00: 00 Yes [id number] Apply to area(s) 2 (two) times daily. [facility] Fluocinolon e Acetonide Oil (DERMOTIC OIL) 0.01 % otic drops 2020-0 2-12 00:00: 00 Yes [id number] 1[drp] Place 1 Drop in each ear 2 (two) times daily. [facility] Clobetasol Propionate 0.05 % shampoo 2020-0 2-12 00:00: 00 Yes [id number] Apply to area(s) 2 (two) times daily. [facility] Fluocinolon e Acetonide Oil (DERMOTIC OIL) 0.01 % otic drops 2020-0 2-12 00:00: 00 Yes [id number] 1[drp] Place 1 Drop in each ear 2 (two) times daily. [facility] Clobetasol Propionate 0.05 % shampoo 2020-0 2-12 00:00: 00 Yes [id number] Apply to area(s) 2 (two) times daily. [facility] Fluocinolon e Acetonide Oil (DERMOTIC OIL) 0.01 % otic drops 2020-0 2-12 00:00: 00 Yes [id number] 1[drp] Place 1 Drop in each ear 2 (two) times daily. [facility] Clobetasol Propionate 0.05 % shampoo 2020-0 2-12 00:00: 00 Yes [id number] Apply to area(s) 2 (two) times daily. [facility] Fluocinolon e Acetonide Oil (DERMOTIC OIL) 0.01 % otic drops 2020-0 2-12 00:00: 00 Yes [id number] 1[drp] Place 1 Drop in each ear 2 (two) times daily. [facility] Clobetasol Propionate 0.05 % shampoo 2020-0 2-12 00:00: 00 Yes [id number] Apply to area(s) 2 (two) times daily. [facility] Fluocinolon e Acetonide Oil (DERMOTIC OIL) 0.01 % otic drops 2020-0 2-12 00:00: 00 Yes [id number] 1[drp] Place 1 Drop in each ear 2 (two) times daily. [facility] Clobetasol Propionate 0.05 % shampoo 2020-0 2-12 00:00: 00 Yes [id number] Apply to area(s) 2 (two) times daily. [facility] Fluocinolon e Acetonide Oil (DERMOTIC OIL) 0.01 % otic drops 2020-0 2-12 00:00: 00 Yes [id number] 1[drp] Place 1 Drop in each ear 2 (two) times daily. [facility] Clobetasol Propionate 0.05 % shampoo 2020-0 2-12 00:00: 00 Yes [id number] Apply to area(s) 2 (two) times daily. [facility] Fluocinolon e Acetonide Oil (DERMOTIC OIL) 0.01 % otic drops 2020-0 2-12 00:00: 00 Yes [id number] 1[drp] Place 1 Drop in each ear 2 (two) times daily. [facility] Clobetasol Propionate 0.05 % shampoo 12-30 00:00: 00 Yes [id number] Apply to area(s) 2 (two) times daily. [facility] Fluocinolon e Acetonide Oil (DERMOTIC OIL) 0.01 % otic drops 12-30 00:00: 00 Yes [id number] 1[drp] Place 1 Drop in each ear 2 (two) times daily. [facility] SINGULAIR ORAL 2018-11 12:18: 35 Yes None Entered [facility] FLUoxetine (PROZAC) 20 mg capsule 2018-11 12:18: 35 Yes 60mg Take 60 mg by mouth daily. [facility] topiramate (TOPAMAX) 50 mg tablet 2018-11 12:18: 35 Yes 50mg Take 50 mg by mouth 2 (two) times daily. [facility] Cholecalcif abhijeet, Vitamin D3, (VITAMIN D3) 2,000 unit tablet 2018-11 12:18: 35 Yes Take by mouth. [facility] fluticasone -vilanterol (BREO ELLIPTA) 100-25 mcg/dose DsDv 2018-11 12:18: 35 Yes Inhale. [facility] SINGULAIR ORAL 2018-11 12:18: 35 Yes None Entered [facility] FLUoxetine (PROZAC) 20 mg capsule 2018-11 12:18: 35 Yes 60mg Take 60 mg by mouth daily. [facility] topiramate (TOPAMAX) 50 mg tablet 2018-11 12:18: 35 Yes 50mg Take 50 mg by mouth 2 (two) times daily. [facility] Cholecalcif abhijeet, Vitamin D3, (VITAMIN D3) 2,000 unit tablet 2018-11 12:18: 35 Yes Take by mouth. [facility] fluticasone -vilanterol (BREO ELLIPTA) 100-25 mcg/dose DsDv 2018-11 12:18: 35 Yes Inhale. [facility] SINGULAIR ORAL 2018-11 12:18: 35 Yes None Entered [facility] FLUoxetine (PROZAC) 20 mg capsule 2018-11 12:18: 35 Yes 60mg Take 60 mg by mouth daily. [facility] topiramate (TOPAMAX) 50 mg tablet 2018-11 12:18: 35 Yes 50mg Take 50 mg by mouth 2 (two) times daily. [facility] Cholecalcif abhijeet, Vitamin D3, (VITAMIN D3) 2,000 unit tablet 2018-11 12:18: 35 Yes Take by mouth. [facility] fluticasone -vilanterol (BREO ELLIPTA) 100-25 mcg/dose DsDv 2018-11 12:18: 35 Yes Inhale. [facility] SINGULAIR ORAL 2018-11 12:18: 35 Yes None Entered [facility] FLUoxetine (PROZAC) 20 mg capsule 2018-11 12:18: 35 Yes 60mg Take 60 mg by mouth daily. [facility] topiramate (TOPAMAX) 50 mg tablet 2018-11 12:18: 35 Yes 50mg Take 50 mg by mouth 2 (two) times daily. [facility] Cholecalcif abhijeet, Vitamin D3, (VITAMIN D3) 2,000 unit tablet 2018-11 12:18: 35 Yes Take by mouth. [facility] fluticasone -vilanterol (BREO ELLIPTA) 100-25 mcg/dose DsDv 2018-11 12:18: 35 Yes Inhale. [facility] SINGULAIR ORAL 2018-11 12:18: 35 Yes None Entered [facility] FLUoxetine (PROZAC) 20 mg capsule 2018-11 12:18: 35 Yes 60mg Take 60 mg by mouth daily. [facility] topiramate (TOPAMAX) 50 mg tablet 2018-11 12:18: 35 Yes 50mg Take 50 mg by mouth 2 (two) times daily. [facility] Cholecalcif abhijeet, Vitamin D3, (VITAMIN D3) 2,000 unit tablet 2018-11 12:18: 35 Yes Take by mouth. [facility] fluticasone -vilanterol (BREO ELLIPTA) 100-25 mcg/dose DsDv 2018-11 12:18: 35 Yes Inhale. [facility] SINGULAIR ORAL 2018-11 12:18: 35 Yes None Entered [facility] FLUoxetine (PROZAC) 20 mg capsule 2018-11 12:18: 35 Yes 60mg Take 60 mg by mouth daily. [facility] topiramate (TOPAMAX) 50 mg tablet 2018-11 12:18: 35 Yes 50mg Take 50 mg by mouth 2 (two) times daily. [facility] Cholecalcif abhijeet, Vitamin D3, (VITAMIN D3) 2,000 unit tablet 2018-11 12:18: 35 Yes Take by mouth. [facility] fluticasone -vilanterol (BREO ELLIPTA) 100-25 mcg/dose DsDv 2018-11 12:18: 35 Yes Inhale. [facility] SINGULAIR ORAL 2018-11 12:18: 35 Yes None Entered [facility] FLUoxetine (PROZAC) 20 mg capsule 2018-11 12:18: 35 Yes 60mg Take 60 mg by mouth daily. [facility] topiramate (TOPAMAX) 50 mg tablet 2018-11 12:18: 35 Yes 50mg Take 50 mg by mouth 2 (two) times daily. [facility] Cholecalcif abhijeet, Vitamin D3, (VITAMIN D3) 2,000 unit tablet 2018-11 12:18: 35 Yes Take by mouth. [facility] fluticasone -vilanterol (BREO ELLIPTA) 100-25 mcg/dose DsDv 2018-11 12:18: 35 Yes Inhale. [facility] SINGULAIR ORAL 2018-11 12:18: 35 Yes None Entered [facility] FLUoxetine (PROZAC) 20 mg capsule 2018-11 12:18: 35 Yes 60mg Take 60 mg by mouth daily. [facility] topiramate (TOPAMAX) 50 mg tablet 2018-11 12:18: 35 Yes 50mg Take 50 mg by mouth 2 (two) times daily. [facility] Cholecalcif abhijeet, Vitamin D3, (VITAMIN D3) 2,000 unit tablet 2018-11 12:18: 35 Yes Take by mouth. [facility] fluticasone -vilanterol (BREO ELLIPTA) 100-25 mcg/dose DsDv 2018-11 12:18: 35 Yes Inhale. [facility] SINGULAIR ORAL 2018-11 12:18: 35 Yes None Entered [facility] FLUoxetine (PROZAC) 20 mg capsule 2018-11 12:18: 35 Yes 60mg Take 60 mg by mouth daily. [facility] topiramate (TOPAMAX) 50 mg tablet 2018-11 12:18: 35 Yes 50mg Take 50 mg by mouth 2 (two) times daily. [facility] Cholecalcif abhijeet, Vitamin D3, (VITAMIN D3) 2,000 unit tablet 2018-11 12:18: 35 Yes Take by mouth. [facility] fluticasone -vilanterol (BREO ELLIPTA) 100-25 mcg/dose DsDv 2018-11 12:18: 35 Yes Inhale. [facility] SINGULAIR ORAL 2018-11 12:18: 35 Yes None Entered [facility] FLUoxetine (PROZAC) 20 mg capsule 2018-11 12:18: 35 Yes 60mg Take 60 mg by mouth daily. [facility] topiramate (TOPAMAX) 50 mg tablet 2018-11 12:18: 35 Yes 50mg Take 50 mg by mouth 2 (two) times daily. [facility] Cholecalcif abhijeet, Vitamin D3, (VITAMIN D3) 2,000 unit tablet 2018-11 12:18: 35 Yes Take by mouth. [facility] fluticasone -vilanterol (BREO ELLIPTA) 100-25 mcg/dose DsDv 2018-11 12:18: 35 Yes Inhale. [facility] fluocinonid e 0.05 % ointment 2018-11 00:00: 00 Yes [id number] Apply to area(s) 2 (two) times daily. [facility] fluocinonid e 0.05 % ointment 2018-11 00:00: 00 Yes [id number] Apply to area(s) 2 (two) times daily. [facility] fluocinonid e 0.05 % ointment 2018-11 00:00: 00 Yes [id number] Apply to area(s) 2 (two) times daily. [facility] fluocinonid e 0.05 % ointment 2018-11 00:00: 00 Yes [id number] Apply to area(s) 2 (two) times daily. [facility] fluocinonid e 0.05 % ointment 2018-11 00:00: 00 Yes [id number] Apply to area(s) 2 (two) times daily. [facility] fluocinonid e 0.05 % ointment 2018-11 00:00: 00 Yes [id number] Apply to area(s) 2 (two) times daily. [facility] fluocinonid e 0.05 % ointment 2018-11 00:00: 00 Yes [id number] Apply to area(s) 2 (two) times daily. [facility] fluocinonid e 0.05 % ointment 2018-11 00:00: 00 Yes [id number] Apply to area(s) 2 (two) times daily. [facility] fluocinonid e 0.05 % ointment 2018-11 00:00: 00 Yes [id number] Apply to area(s) 2 (two) times daily. [facility] fluocinonid e 0.05 % ointment 2019-1 2-29 00:00: 00 Yes [id number] Apply to area(s) 2 (two) times daily. [facility] Kenalog (Triamcinol one) Kenalog (Triamcinol one) 2018-11 00:00: 00 No 40mg [facility] Dexamethaso ne Dexamethaso ne 2018-1117 00:00: 00 No 10mg [facility] Kenalog (Triamcinol one) Kenalog (Triamcinol one) 2018-11 00:00: 00 No 40mg [facility] Dexamethaso ne Dexamethaso ne 2018-11 00:00: 00 No 10mg [facility] Kenalog (Triamcinol one) Kenalog (Triamcinol one) 2018-11 00:00: 00 No 40mg [facility] Dexamethaso ne Dexamethaso ne 2018-11 00:00: 00 No 10mg [facility] Kenalog (Triamcinol one) Kenalog (Triamcinol one) 2018-11 00:00: 00 No 40mg [facility] Dexamethaso ne Dexamethaso ne 2018-11 00:00: 00 No 10mg [facility] buPROPion XL 300 mg 24 hr tablet 08-10 00:00: 00 Yes [facility] buPROPion XL 300 mg 24 hr tablet 08-10 00:00: 00 Yes [facility] buPROPion XL 300 mg 24 hr tablet 08-10 00:00: 00 Yes [facility] buPROPion XL 300 mg 24 hr tablet 08-10 00:00: 00 Yes [facility] buPROPion XL 300 mg 24 hr tablet 08-10 00:00: 00 Yes [facility] buPROPion XL 300 mg 24 hr tablet 08-10 00:00: 00 Yes [facility] buPROPion XL 300 mg 24 hr tablet 08-10 00:00: 00 Yes [facility] buPROPion XL 300 mg 24 hr tablet 0 08-10 00:00: 00 Yes [facility] buPROPion XL 300 mg 24 hr tablet 08-10 00:00: 00 Yes [facility] buPROPion XL 300 mg 24 hr tablet 0 08-10 00:00: 00 Yes [facility] polymyxin B sulf-trimet hoprim 10,000 unit- 1 mg/mL ophthalmic drops 07-28 00:00: 00 Yes PUT 1 DROP INTO AFFECTED EYE 4 TIMES DAILY FOR 5 DAYS [facility] polymyxin B sulf-trimet hoprim 10,000 unit- 1 mg/mL ophthalmic drops 0 07-28 00:00: 00 Yes PUT 1 DROP INTO AFFECTED EYE 4 TIMES DAILY FOR 5 DAYS [facility] polymyxin B sulf-trimet hoprim 10,000 unit- 1 mg/mL ophthalmic drops 0 07-28 00:00: 00 Yes PUT 1 DROP INTO AFFECTED EYE 4 TIMES DAILY FOR 5 DAYS [facility] polymyxin B sulf-trimet hoprim 10,000 unit- 1 mg/mL ophthalmic drops 0 07-28 00:00: 00 Yes PUT 1 DROP INTO AFFECTED EYE 4 TIMES DAILY FOR 5 DAYS [facility] polymyxin B sulf-trimet hoprim 10,000 unit- 1 mg/mL ophthalmic drops 0 07-28 00:00: 00 Yes PUT 1 DROP INTO AFFECTED EYE 4 TIMES DAILY FOR 5 DAYS [facility] polymyxin B sulf-trimet hoprim 10,000 unit- 1 mg/mL ophthalmic drops 0 07-28 00:00: 00 Yes PUT 1 DROP INTO AFFECTED EYE 4 TIMES DAILY FOR 5 DAYS [facility] polymyxin B sulf-trimet hoprim 10,000 unit- 1 mg/mL ophthalmic drops 0 07-28 00:00: 00 Yes PUT 1 DROP INTO AFFECTED EYE 4 TIMES DAILY FOR 5 DAYS [facility] polymyxin B sulf-trimet hoprim 10,000 unit- 1 mg/mL ophthalmic drops 0 07-28 00:00: 00 Yes PUT 1 DROP INTO AFFECTED EYE 4 TIMES DAILY FOR 5 DAYS [facility] polymyxin B sulf-trimet hoprim 10,000 unit- 1 mg/mL ophthalmic drops 07-28 00:00: 00 Yes PUT 1 DROP INTO AFFECTED EYE 4 TIMES DAILY FOR 5 DAYS [facility] polymyxin B sulf-trimet hoprim 10,000 unit- 1 mg/mL ophthalmic drops 07-28 00:00: 00 Yes PUT 1 DROP INTO AFFECTED EYE 4 TIMES DAILY FOR 5 DAYS [facility] terbinafine HCl 250 mg tablet 06-18 00:00: 00 Yes [id number] 250mg Take 1 tablet by mouth daily. [facility] terbinafine HCl 250 mg tablet 06-18 00:00: 00 Yes [id number] 250mg Take 1 tablet by mouth daily. [facility] terbinafine HCl 250 mg tablet 06-18 00:00: 00 Yes [id number] 250mg Take 1 tablet by mouth daily. [facility] terbinafine HCl 250 mg tablet 06-18 00:00: 00 Yes [id number] 250mg Take 1 tablet by mouth daily. [facility] terbinafine HCl 250 mg tablet 06-18 00:00: 00 Yes [id number] 250mg Take 1 tablet by mouth daily. [facility] terbinafine HCl 250 mg tablet 06-18 00:00: 00 Yes [id number] 250mg Take 1 tablet by mouth daily. [facility] terbinafine HCl 250 mg tablet 06-18 00:00: 00 Yes [id number] 250mg Take 1 tablet by mouth daily. [facility] terbinafine HCl 250 mg tablet 06-18 00:00: 00 Yes [id number] 250mg Take 1 tablet by mouth daily. [facility] terbinafine HCl 250 mg tablet 06-18 00:00: 00 Yes [id number] 250mg Take 1 tablet by mouth daily. [facility] terbinafine HCl 250 mg tablet 06-18 00:00: 00 Yes [id number] 250mg Take 1 tablet by mouth daily. [facility] hydrOXYzine 25 mg tablet 06-03 00:00: 00 Yes TAKE 1 TABLET BY MOUTH EVERY 8 HOURS NEEDED MAY MAKE DROWSY [facility] hydrOXYzine 25 mg tablet 06-03 00:00: 00 Yes TAKE 1 TABLET BY MOUTH EVERY 8 HOURS NEEDED MAY MAKE DROWSY [facility] hydrOXYzine 25 mg tablet 06-03 00:00: 00 Yes TAKE 1 TABLET BY MOUTH EVERY 8 HOURS NEEDED MAY MAKE DROWSY [facility] hydrOXYzine 25 mg tablet 06-03 00:00: 00 Yes TAKE 1 TABLET BY MOUTH EVERY 8 HOURS NEEDED MAY MAKE DROWSY [facility] hydrOXYzine 25 mg tablet 06-03 00:00: 00 Yes TAKE 1 TABLET BY MOUTH EVERY 8 HOURS NEEDED MAY MAKE DROWSY [facility] hydrOXYzine 25 mg tablet 06-03 00:00: 00 Yes TAKE 1 TABLET BY MOUTH EVERY 8 HOURS NEEDED MAY MAKE DROWSY [facility] hydrOXYzine 25 mg tablet 06-03 00:00: 00 Yes TAKE 1 TABLET BY MOUTH EVERY 8 HOURS NEEDED MAY MAKE DROWSY [facility] hydrOXYzine 25 mg tablet 06-03 00:00: 00 Yes TAKE 1 TABLET BY MOUTH EVERY 8 HOURS NEEDED MAY MAKE DROWSY [facility] hydrOXYzine 25 mg tablet 06-03 00:00: 00 Yes TAKE 1 TABLET BY MOUTH EVERY 8 HOURS NEEDED MAY MAKE DROWSY [facility] hydrOXYzine 25 mg tablet 06-03 00:00: 00 Yes TAKE 1 TABLET BY MOUTH EVERY 8 HOURS NEEDED MAY MAKE DROWSY [facility] Kenalog (Triamcinol one) Kenalog (Triamcinol one) 01-23 00:00: 00 No 40mg [facility] Dexamethaso ne Dexamethaso ne 01-23 00:00: 00 No 10mg [facility] Kenalog (Triamcinol one) Kenalog (Triamcinol one) 01-23 00:00: 00 No 40mg [facility] Dexamethaso ne Dexamethaso ne 01-23 00:00: 00 No 10mg [facility] Kenalog (Triamcinol one) Kenalog (Triamcinol one) 01-23 00:00: 00 No 40mg [facility] Dexamethaso ne Dexamethaso ne 01-23 00:00: 00 No 10mg [facility] Kenalog (Triamcinol one) Kenalog (Triamcinol one) 01-23 00:00: 00 No 40mg [facility] Dexamethaso ne Dexamethaso ne 01-23 00:00: 00 No 10mg [facility] amLODIPine 5 mg tablet 07-08 00:00: 00 Yes [facility] amLODIPine 5 mg tablet 07-08 00:00: 00 Yes [facility] amLODIPine 5 mg tablet 07-08 00:00: 00 Yes [facility] amLODIPine 5 mg tablet 07-08 00:00: 00 Yes [facility] amLODIPine 5 mg tablet 07-08 00:00: 00 Yes [facility] amLODIPine 5 mg tablet 07-08 00:00: 00 Yes [facility] amLODIPine 5 mg tablet 07-08 00:00: 00 Yes [facility] amLODIPine 5 mg tablet 07-08 00:00: 00 Yes [facility] amLODIPine 5 mg tablet 07-08 00:00: 00 Yes [facility] amLODIPine 5 mg tablet 07-08 00:00: 00 Yes [facility] risperiDONE 1 mg tablet 02-23 00:00: 00 Yes TAKE 2 TABLETS BY MOUTH AT BEDTIME MAY MAKE DROWSY [facility] risperiDONE 1 mg tablet 02-23 00:00: 00 Yes TAKE 2 TABLETS BY MOUTH AT BEDTIME MAY MAKE DROWSY [facility] risperiDONE 1 mg tablet 02-23 00:00: 00 Yes TAKE 2 TABLETS BY MOUTH AT BEDTIME MAY MAKE DROWSY [facility] risperiDONE 1 mg tablet 02-23 00:00: 00 Yes TAKE 2 TABLETS BY MOUTH AT BEDTIME MAY MAKE DROWSY [facility] risperiDONE 1 mg tablet 02-23 00:00: 00 Yes TAKE 2 TABLETS BY MOUTH AT BEDTIME MAY MAKE DROWSY [facility] risperiDONE 1 mg tablet 02-23 00:00: 00 Yes TAKE 2 TABLETS BY MOUTH AT BEDTIME MAY MAKE DROWSY [facility] risperiDONE 1 mg tablet 02-23 00:00: 00 Yes TAKE 2 TABLETS BY MOUTH AT BEDTIME MAY MAKE DROWSY [facility] risperiDONE 1 mg tablet 02-23 00:00: 00 Yes TAKE 2 TABLETS BY MOUTH AT BEDTIME MAY MAKE DROWSY [facility] risperiDONE 1 mg tablet 02-23 00:00: 00 Yes TAKE 2 TABLETS BY MOUTH AT BEDTIME MAY MAKE DROWSY [facility] risperiDONE 1 mg tablet 02-23 00:00: 00 Yes TAKE 2 TABLETS BY MOUTH AT BEDTIME MAY MAKE DROWSY [facility] PENTASA 500 MG ORAL CPSR 2008-11 00:00: 00 Yes [id number] None Entered [facility] PENTASA 500 MG ORAL CPSR 2008-11 00:00: 00 Yes [id number] None Entered [facility] PENTASA 500 MG ORAL CPSR 2008-11 00:00: 00 Yes [id number] None Entered [facility] PENTASA 500 MG ORAL CPSR 2008-11 00:00: 00 Yes [id number] None Entered [facility] PENTASA 500 MG ORAL CPSR 2008-11 00:00: 00 Yes [id number] None Entered [facility] PENTASA 500 MG ORAL CPSR 2008-11 00:00: 00 Yes [id number] None Entered [facility] PENTASA 500 MG ORAL CPSR 2008-11 00:00: 00 Yes [id number] None Entered [facility] PENTASA 500 MG ORAL CPSR 2008-11 00:00: 00 Yes [id number] None Entered [facility] PENTASA 500 MG ORAL CPSR 2008-11 00:00: 00 Yes [id number] None Entered [facility] PENTASA 500 MG ORAL CPSR 2008-11 00:00: 00 Yes [id number] None Entered [facility] Multivitami n - Multivitami n - No 1{table t} QD Multivitam in - risperiDONE 3 MG risperiDONE 3 MG No 1{table t} QD risperiDON E 3 MG Fluoxetine 20 Fluoxetine 20 No 3{capsu les} QD Fluoxetine 20 Aspirin 81 81 MG Aspirin 81 81 MG No 1{table t} QD Aspirin 81 81 MG Topiramate 100 MG Topiramate 100 MG No 1{table t} BID Topiramate 100 MG ZyrTEC Allergy 10 MG ZyrTEC Allergy 10 MG No 1{table t} QD ZyrTEC Allergy 10 MG Simvastatin 20 MG Simvastatin 20 MG No 1{table t_in_th e_eveni ng} QD Simvastati n 20 MG Ondansetron HCl 4 MG Ondansetron HCl 4 MG No 1{table t} QD Ondansetro n HCl 4 MG Gabapentin 100 MG Gabapentin 100 MG No TID Gabapentin 100 MG Dicyclomine HCl 20 MG Dicyclomine HCl 20 MG No 1{table t} TID Dicyclomin e HCl 20 MG Omeprazole Omeprazole No Omeprazole Advair Diskus 250-50 MCG/ACT Advair Diskus 250-50 MCG/ACT No 1{puff} BID Advair Diskus 250-50 MCG/ACT hydrOXYzine Pamoate 25 mg hydrOXYzine Pamoate 25 mg No hydrOXYzin e Pamoate 25 mg Meloxicam Meloxicam No Meloxicam Combivent Respimat 20-100 MCG/ACT Combivent Respimat 20-100 MCG/ACT No 1{puff_ as_need ed} QID Combivent Respimat 20-100 MCG/ACT Montelukast Sodium 10 MG Montelukast Sodium 10 MG No 1{table t} QD Montelukas t Sodium 10 MG amLODIPine Besylate 5 MG amLODIPine Besylate 5 MG No 1{table t} QD amLODIPine Besylate 5 MG buPROPion HCl ER (XL) 300 MG buPROPion HCl ER (XL) 300 MG No 1{table t_in_th e_morni ng} QD buPROPion HCl ER (XL) 300 MG Baclofen 10 MG Baclofen 10 MG No 1{table t_as_ne eded} BID Baclofen 10 MG Naltrexone HCl 50 MG Naltrexone HCl 50 MG No 1{table t} QD Naltrexone HCl 50 MG Multivitami n - Multivitami n - No 1{table t} QD Multivitam in - risperiDONE 3 MG risperiDONE 3 MG No 1{table t} QD risperiDON E 3 MG Fluoxetine 20 Fluoxetine 20 No 3{capsu les} QD Fluoxetine 20 Aspirin 81 81 MG Aspirin 81 81 MG No 1{table t} QD Aspirin 81 81 MG Topiramate 100 MG Topiramate 100 MG No 1{table t} BID Topiramate 100 MG ZyrTEC Allergy 10 MG ZyrTEC Allergy 10 MG No 1{table t} QD ZyrTEC Allergy 10 MG Simvastatin 20 MG Simvastatin 20 MG No 1{table t_in_th e_eveni ng} QD Simvastati n 20 MG Ondansetron HCl 4 MG Ondansetron HCl 4 MG No 1{table t} QD Ondansetro n HCl 4 MG Gabapentin 100 MG Gabapentin 100 MG No TID Gabapentin 100 MG Dicyclomine HCl 20 MG Dicyclomine HCl 20 MG No 1{table t} TID Dicyclomin e HCl 20 MG Omeprazole Omeprazole No Omeprazole Advair Diskus 250-50 MCG/ACT Advair Diskus 250-50 MCG/ACT No 1{puff} BID Advair Diskus 250-50 MCG/ACT hydrOXYzine Pamoate 25 mg hydrOXYzine Pamoate 25 mg No hydrOXYzin e Pamoate 25 mg Meloxicam Meloxicam No Meloxicam Combivent Respimat 20-100 MCG/ACT Combivent Respimat 20-100 MCG/ACT No 1{puff_ as_need ed} QID Combivent Respimat 20-100 MCG/ACT Montelukast Sodium 10 MG Montelukast Sodium 10 MG No 1{table t} QD Montelukas t Sodium 10 MG amLODIPine Besylate 5 MG amLODIPine Besylate 5 MG No 1{table t} QD amLODIPine Besylate 5 MG buPROPion HCl ER (XL) 300 MG buPROPion HCl ER (XL) 300 MG No 1{table t_in_th e_morni ng} QD buPROPion HCl ER (XL) 300 MG Baclofen 10 MG Baclofen 10 MG No 1{table t_as_ne eded} BID Baclofen 10 MG Naltrexone HCl 50 MG Naltrexone HCl 50 MG No 1{table t} QD Naltrexone HCl 50 MG Multivitami n - Multivitami n - No 1{table t} QD Multivitam in - risperiDONE 3 MG risperiDONE 3 MG No 1{table t} QD risperiDON E 3 MG Fluoxetine 20 Fluoxetine 20 No 3{capsu les} QD Fluoxetine 20 Aspirin 81 81 MG Aspirin 81 81 MG No 1{table t} QD Aspirin 81 81 MG Topiramate 100 MG Topiramate 100 MG No 1{table t} BID Topiramate 100 MG ZyrTEC Allergy 10 MG ZyrTEC Allergy 10 MG No 1{table t} QD ZyrTEC Allergy 10 MG Simvastatin 20 MG Simvastatin 20 MG No 1{table t_in_th e_eveni ng} QD Simvastati n 20 MG Ondansetron HCl 4 MG Ondansetron HCl 4 MG No 1{table t} QD Ondansetro n HCl 4 MG Gabapentin 100 MG Gabapentin 100 MG No TID Gabapentin 100 MG Dicyclomine HCl 20 MG Dicyclomine HCl 20 MG No 1{table t} TID Dicyclomin e HCl 20 MG Omeprazole Omeprazole No Omeprazole Advair Diskus 250-50 MCG/ACT Advair Diskus 250-50 MCG/ACT No 1{puff} BID Advair Diskus 250-50 MCG/ACT hydrOXYzine Pamoate 25 mg hydrOXYzine Pamoate 25 mg No hydrOXYzin e Pamoate 25 mg Meloxicam Meloxicam No Meloxicam Combivent Respimat 20-100 MCG/ACT Combivent Respimat 20-100 MCG/ACT No 1{puff_ as_need ed} QID Combivent Respimat 20-100 MCG/ACT Montelukast Sodium 10 MG Montelukast Sodium 10 MG No 1{table t} QD Montelukas t Sodium 10 MG amLODIPine Besylate 5 MG amLODIPine Besylate 5 MG No 1{table t} QD amLODIPine Besylate 5 MG buPROPion HCl ER (XL) 300 MG buPROPion HCl ER (XL) 300 MG No 1{table t_in_th e_morni ng} QD buPROPion HCl ER (XL) 300 MG Baclofen 10 MG Baclofen 10 MG No 1{table t_as_ne eded} BID Baclofen 10 MG Naltrexone HCl 50 MG Naltrexone HCl 50 MG No 1{table t} QD Naltrexone HCl 50 MG Multivitami n - Multivitami n - No 1{table t} QD Multivitam in - risperiDONE 3 MG risperiDONE 3 MG No 1{table t} QD risperiDON E 3 MG Fluoxetine 20 Fluoxetine 20 No 3{capsu les} QD Fluoxetine 20 Aspirin 81 81 MG Aspirin 81 81 MG No 1{table t} QD Aspirin 81 81 MG Topiramate 100 MG Topiramate 100 MG No 1{table t} BID Topiramate 100 MG ZyrTEC Allergy 10 MG ZyrTEC Allergy 10 MG No 1{table t} QD ZyrTEC Allergy 10 MG Simvastatin 20 MG Simvastatin 20 MG No 1{table t_in_th e_eveni ng} QD Simvastati n 20 MG Ondansetron HCl 4 MG Ondansetron HCl 4 MG No 1{table t} QD Ondansetro n HCl 4 MG Gabapentin 100 MG Gabapentin 100 MG No TID Gabapentin 100 MG Dicyclomine HCl 20 MG Dicyclomine HCl 20 MG No 1{table t} TID Dicyclomin e HCl 20 MG Omeprazole Omeprazole No Omeprazole Advair Diskus 250-50 MCG/ACT Advair Diskus 250-50 MCG/ACT No 1{puff} BID Advair Diskus 250-50 MCG/ACT hydrOXYzine Pamoate 25 mg hydrOXYzine Pamoate 25 mg No hydrOXYzin e Pamoate 25 mg Meloxicam Meloxicam No Meloxicam Combivent Respimat 20-100 MCG/ACT Combivent Respimat 20-100 MCG/ACT No 1{puff_ as_need ed} QID Combivent Respimat 20-100 MCG/ACT Montelukast Sodium 10 MG Montelukast Sodium 10 MG No 1{table t} QD Montelukas t Sodium 10 MG amLODIPine Besylate 5 MG amLODIPine Besylate 5 MG No 1{table t} QD amLODIPine Besylate 5 MG buPROPion HCl ER (XL) 300 MG buPROPion HCl ER (XL) 300 MG No 1{table t_in_th e_morni ng} QD buPROPion HCl ER (XL) 300 MG Baclofen 10 MG Baclofen 10 MG No 1{table t_as_ne eded} BID Baclofen 10 MG Naltrexone HCl 50 MG Naltrexone HCl 50 MG No 1{table t} QD Naltrexone HCl 50 MG Immunizations Ordered Immunization Name Filled Immunization Name Date Status Comments Source Influenza, injectable, Madin [facility] Canine Kidney, preservative-free, quadrivalent 2022-08-27 00:00:00 Completed Influenza, injectable, Madin [place] Canine Kidney, preservative-free, quadrivalent 2022-08-27 00:00:00 Completed Influenza, injectable, Madin [place] Canine Kidney, preservative-free, quadrivalent 2022-08-27 00:00:00 Completed Influenza, injectable, Madin [place] Canine Kidney, preservative-free, quadrivalent 2022-08-27 00:00:00 Completed Moderna COVID-19 Vaccine 2022-04-25 00:00:00 Completed Moderna COVID-19 Vaccine 2022-04-25 00:00:00 Completed Moderna COVID-19 Vaccine 2022-04-25 00:00:00 Completed Moderna COVID-19 Vaccine 2022-04-25 00:00:00 Completed Moderna COVID-19 Vaccine 2022-04-25 00:00:00 Completed Moderna COVID-19 Vaccine 2022-04-25 00:00:00 Completed SARS-COV-2 COVID-19 MODERNA 0.5ML BOOSTER VACCINE 2022-04-25 00:00:00 Completed [facility] SARS-COV-2 COVID-19 MODERNA 0.5ML BOOSTER VACCINE 2022-04-25 00:00:00 Completed [facility] Tdap 2022-04-24 00:00:00 Completed Tdap 2022-04-24 00:00:00 Completed Tdap 2022-04-24 00:00:00 Completed Tdap 2022-04-24 00:00:00 Completed Tdap 2022-04-24 00:00:00 Completed Tdap 2022-04-24 00:00:00 Completed Td 2022-04-24 00:00:00 Completed [facility] TD, NOS 2022-04-24 00:00:00 Completed [facility] Pneumococcal conjugate P 2021-10-30 00:00:00 Completed Pneumococcal conjugate P 2021-10-30 00:00:00 Completed Pneumococcal conjugate P 2021-10-30 00:00:00 Completed Pneumococcal conjugate P 2021-10-30 00:00:00 Completed Pneumococcal conjugate P 2021-10-30 00:00:00 Completed Pneumococcal conjugate P 2021-10-30 00:00:00 Completed SHINGRIX VACCINE 2021-10-20 00:00:00 Completed SHINGRIX VACCINE 2021-10-20 00:00:00 Completed SHINGRIX VACCINE 2021-10-20 00:00:00 Completed SHINGRIX VACCINE 2021-10-20 00:00:00 Completed SHINGRIX VACCINE 2021-10-20 00:00:00 Completed SHINGRIX VACCINE 2021-10-20 00:00:00 Completed Influenza Virus Vaccine Quad IM, Preserv and ABX Free 6 MO-64 YRS 2021-09-05 00:00:00 Completed [facility] Influenza Virus Vaccine Quad IM, Preserv and ABX Free 6 MO-64 YRS 2021-09-05 00:00:00 Completed [facility] Influenza Virus Vaccine Quad IM, Preserv and ABX Free 6 MO-64 YRS 2021-09-05 00:00:00 Completed [facility] Influenza Virus Vaccine Quad IM, Preserv and ABX Free 6 MO-64 YRS 2021-09-05 00:00:00 Completed [facility] Influenza Virus Vaccine Quad IM, Preserv and ABX Free 6 MO-64 YRS 2021-09-05 00:00:00 Completed [facility] Moderna COVID-19 Vaccine 2021-09-04 00:00:00 Completed Moderna COVID-19 Vaccine 2021-09-04 00:00:00 Completed Moderna COVID-19 Vaccine 2021-09-04 00:00:00 Completed Moderna COVID-19 Vaccine 2021-09-04 00:00:00 Completed Moderna COVID-19 Vaccine 2021-09-04 00:00:00 Completed Moderna COVID-19 Vaccine 2021-09-04 00:00:00 Completed SARS-COV-2 COVID-19 MODERNA 0.5ML BOOSTER VACCINE 2021-09-04 00:00:00 Completed [facility] SARS-COV-2 COVID-19 MODERNA 0.5ML BOOSTER VACCINE 2021-09-04 00:00:00 Completed [facility] Moderna COVID-19 Vaccine 2021-02-24 00:00:00 Completed Moderna COVID-19 Vaccine 2021-02-24 00:00:00 Completed Moderna COVID-19 Vaccine 2021-02-24 00:00:00 Completed Moderna COVID-19 Vaccine 2021-02-24 00:00:00 Completed Moderna COVID-19 Vaccine 2021-02-24 00:00:00 Completed Moderna COVID-19 Vaccine 2021-02-24 00:00:00 Completed SARS-COV-2 COVID-19 MODERNA VACCINE 2021-02-24 00:00:00 Completed [facility] SARS-COV-2 COVID-19 MODERNA VACCINE 2021-02-24 00:00:00 Completed [facility] SARS-COV-2 COVID-19 MODERNA VACCINE 2021-02-24 00:00:00 Completed [facility] SARS-COV-2 COVID-19 MODERNA 12+ YRS VACCINE 2021-02-24 00:00:00 Completed [facility] SARS-COV-2 COVID-19 MODERNA 12+ YRS VACCINE 2021-02-24 00:00:00 Completed [facility] Moderna COVID-19 Vaccine 2021-02-01 00:00:00 Completed Moderna COVID-19 Vaccine 2021-02-01 00:00:00 Completed Moderna COVID-19 Vaccine 2021-02-01 00:00:00 Completed Moderna COVID-19 Vaccine 2021-02-01 00:00:00 Completed Moderna COVID-19 Vaccine 2021-02-01 00:00:00 Completed Moderna COVID-19 Vaccine 2021-02-01 00:00:00 Completed SARS-COV-2 COVID-19 MODERNA VACCINE 2021-02-01 00:00:00 Completed [facility] SARS-COV-2 COVID-19 MODERNA VACCINE 2021-02-01 00:00:00 Completed [facility] SARS-COV-2 COVID-19 MODERNA VACCINE 2021-02-01 00:00:00 Completed [facility] SARS-COV-2 COVID-19 MODERNA 12+ YRS VACCINE 2021-02-01 00:00:00 Completed [facility] SARS-COV-2 COVID-19 MODERNA 12+ YRS VACCINE 2021-02-01 00:00:00 Completed [facility] Influenza Virus Vaccine Quad .5 mL IM 6+ MO 2020-07-19 00:00:00 Completed [facility] Influenza Virus Vaccine Quad IM 3+ YRS 2020-07-19 00:00:00 Completed [facility] Influenza Virus Vaccine Quad .5 mL IM 6+ MO 2020-07-19 00:00:00 Completed [facility] Influenza Virus Vaccine Quad IM 3+ YRS 2020-07-19 00:00:00 Completed [facility] Influenza Virus Vaccine Quad .5 mL IM 6+ MO 2020-07-19 00:00:00 Completed [facility] Influenza Virus Vaccine Quad IM 3+ YRS 2020-07-19 00:00:00 Completed [facility] Influenza Virus Vaccine Quad .5 mL IM 6+ MO 2020-07-19 00:00:00 Completed [facility] Influenza Virus Vaccine Quad IM 3+ YRS 2020-07-19 00:00:00 Completed [facility] Influenza Virus Vaccine Quad .5 mL IM 6+ MO 2020-07-19 00:00:00 Completed [facility] Influenza Virus Vaccine Quad IM 3+ YRS 2020-07-19 00:00:00 Completed [facility] Influenza Virus Vaccine 2019-09-17 00:00:00 Completed [facility] Influenza Virus Vaccine 2019-09-17 00:00:00 Completed [facility] Influenza Virus Vaccine 2019-09-17 00:00:00 Completed [facility] Influenza Virus Vaccine 2019-09-17 00:00:00 Completed [facility] Influenza Virus Vaccine 2019-09-17 00:00:00 Completed [facility] PNEUMAVAX 23 PNEUMAVAX 23 Unknown Completed Comm on [facility] Fluzone Fluzone Unknown Completed [facility] PNEUMAVAX 23 PNEUMAVAX 23 Unknown Completed Comm on [facility] Fluzone Fluzone Unknown Completed [facility] PNEUMAVAX 23 PNEUMAVAX 23 Unknown Completed Comm on [facility] Fluzone Fluzone Unknown Completed [facility] PNEUMAVAX 23 PNEUMAVAX 23 Unknown Completed Comm on [facility] Fluzone Fluzone Unknown Completed [facility] Influenza Virus Vaccine Unknown Completed [facility] Influenza Virus Vaccine Quad .5 mL IM 6+ MO (FLUZONE/FLULAVAL/F LUARIX) Unknown Completed [facility] SARS-COV-2 COVID-19 MODERNA 12+ YRS VACCINE Unknown Completed [facility] SARS-COV-2 COVID-19 MODERNA 12+ YRS VACCINE Unknown Completed [facility] Influenza Virus Vaccine Quad IM 3+ YRS Unknown Completed [facility] Influenza Virus Vaccine Unknown Completed [facility] Influenza Virus Vaccine Quad .5 mL IM 6+ MO (FLUZONE/FLULAVAL/F LUARIX) Unknown Completed [facility] SARS-COV-2 COVID-19 MODERNA 12+ YRS VACCINE Unknown Completed [facility] SARS-COV-2 COVID-19 MODERNA 12+ YRS VACCINE Unknown Completed [facility] Influenza Virus Vaccine Quad IM 3+ YRS Unknown Completed [facility] Influenza Virus Vaccine Unknown Completed [facility] Influenza Virus Vaccine Quad .5 mL IM 6+ MO (FLUZONE/FLULAVAL/F LUARIX) Unknown Completed [facility] Influenza Virus Vaccine Quad IM, Preserv and ABX Free 6 MO-64 YRS (FLUCELVAX) Unknown Completed [facility] SARS-COV-2 COVID-19 MODERNA 12+ YRS VACCINE Unknown Completed [facility] SARS-COV-2 COVID-19 MODERNA 12+ YRS VACCINE Unknown Completed [facility] Influenza Virus Vaccine Quad IM 3+ YRS Unknown Completed [facility] SARS-COV-2 COVID-19 MODERNA 0.5ML BOOSTER VACCINE Unknown Completed [facility] SARS-COV-2 COVID-19 MODERNA 0.5ML BOOSTER VACCINE Unknown Completed [facility] TD, NOS Unknown Completed [facility] Influenza Virus Vaccine Unknown Completed [facility] Influenza Virus Vaccine Quad .5 mL IM 6+ MO (FLUZONE/FLULAVAL/F LUARIX) Unknown Completed [facility] Influenza Virus Vaccine Quad IM, Preserv and ABX Free 6 MO-64 YRS (FLUCELVAX) Unknown Completed [facility] SARS-COV-2 COVID-19 MODERNA 12+ YRS VACCINE Unknown Completed [facility] SARS-COV-2 COVID-19 MODERNA 12+ YRS VACCINE Unknown Completed [facility] Influenza Virus Vaccine Quad IM 3+ YRS Unknown Completed [facility] SARS-COV-2 COVID-19 MODERNA 0.5ML BOOSTER VACCINE Unknown Completed [facility] SARS-COV-2 COVID-19 MODERNA 0.5ML BOOSTER VACCINE Unknown Completed [facility] TD, NOS Unknown Completed [facility] Influenza Virus Vaccine Unknown Completed [facility] Influenza Virus Vaccine Quad .5 mL IM 6+ MO (FLUZONE/FLULAVAL/F LUARIX) Unknown Completed [facility] Influenza Virus Vaccine Quad IM, Preserv and ABX Free 6 MO-64 YRS (FLUCELVAX) Unknown Completed [facility] SARS-COV-2 COVID-19 MODERNA 12+ YRS VACCINE Unknown Completed [facility] SARS-COV-2 COVID-19 MODERNA 12+ YRS VACCINE Unknown Completed [facility] Influenza Virus Vaccine Quad IM 3+ YRS Unknown Completed [facility] SARS-COV-2 COVID-19 MODERNA 0.5ML BOOSTER VACCINE Unknown Completed [facility] SARS-COV-2 COVID-19 MODERNA 0.5ML BOOSTER VACCINE Unknown Completed [facility] TD, NOS Unknown Completed [facility] Vital Signs Vital Name Observation Time Observation Value Comments S ource height 2023-05-01 11:15:00 60 [in_i] Commo n [facility] weight 2023-05-01 11:15:00 168 [lb_av] Comm on [facility] temperature 2023-05-01 11:15:00 97.9 [degF] Com mon [facility] bmi 2023-05-01 11:15:00 32.81 kg/m2 Comm on [facility] oximetry 2023-05-01 11:15:00 92 % Commo n [facility] respiratory rate 2023-05-01 11:15:00 18 /min Common [facility] blood pressure systolic 2023-05-01 11:15:00 121 mm[Hg] Common [facility] blood pressure diastolic 2023-05-01 11:15:00 67 mm[Hg] [facility] height 2023-02-21 08:45:00 60 [in_i] Commo n [facility] weight 2023-02-21 08:45:00 165.4 [lb_av] Co mmon [facility] temperature 2023-02-21 08:45:00 97.5 [degF] Com mon [facility] bmi 2023-02-21 08:45:00 32.3 kg/m2 Commo n [facility] oximetry 2023-02-21 08:45:00 97 % Commo n [facility] respiratory rate 2023-02-21 08:45:00 18 /min [facility] blood pressure systolic 2023-02-21 08:45:00 125 mm[Hg] Common [facility] blood pressure diastolic 2023-02-21 08:45:00 65 mm[Hg] [facility] Systolic blood pressure 2022-05-01 14:36:00 109 mm[Hg] [facility] Diastolic blood pressure 2022-05-01 14:36:00 73 mm[Hg] [facility] Heart rate 2022-05-01 14:36:00 87 /min [facility] Body height 2022-05-01 14:36:00 152.4 cm [facility] Body weight 2022-05-01 14:36:00 70.761 kg [facility] BMI 2022-05-01 14:36:00 30.47 kg/m2 [facility] BP Systolic 2022-08-27 16:26:00 126 mm[Hg] [...] Procedures Procedure Date / Time Performed Performing Clinicia n Source REFERRAL- REQUEST/RESPONSE 2023-09-25 06:01:00 Doctor Unassigned, Malcolm [facility] PVR 2023-05-01 00:00:00 [facility]NCV 2022-07-10 05:01:00 Addi Harris [facility] Plan of Care Planned Activity Planned Date Details Comments Source Goal Plan of Care Note [code = 23378-5] Goal Plan of Care Note [code = 46401-0] Goal Plan of Care Note [code = 84264-3] Goal Plan of Care Note [code = 49917-0] Goal Plan of Care Note [code = 25894-6] Goal Plan of Care Note [code = 37234-3] Goal Plan of Care Note [code = 55840-3] Goal Plan of Care Note [code = 71374-9] Goal Plan of Care Note [code = 99651-7] Goal Plan of Care Note [code = 24699-0] Goal Plan of Care Note [code = 98773-8] Goal Plan of Care Note [code = 07007-3] Goal Plan of Care Note [code = 65225-8] Goal Plan of Care Note [code = 55261-7] Goal Plan of Care Note [code = 58884-1] Goal Plan of Care Note [code = 27069-9] Goal Plan of Care Note [code = 15485-9] Goal Plan of Care Note [code = 77778-2] Goal Plan of Care Note [code = 21255-0] Goal Plan of Care Note [code = 75049-8] Goal Plan of Care Note [code = 49637-7] Goal Plan of Care Note [code = 93369-3] Goal Plan of Care Note [code = 27709-6] Goal Plan of Care Note [code = 66011-1] Goal Plan of Care Note [code = 68362-5] Goal Plan of Care Note [code = 04137-1] Goal Plan of Care Note [code = 10207-8] Goal Plan of Care Note [code = 05696-7] Goal Plan of Care Note [code = 45857-0] Goal Plan of Care Note [code = 37220-3] Goal Plan of Care Note [code = 68972-8] Goal Plan of Care Note [code = 81906-4] Goal Plan of Care Note [code = 53702-8] Goal Plan of Care Note [code = 82485-6] Goal Plan of Care Note [code = 83469-0] Goal Plan of Care Note [code = 04226-4] Goal Plan of Care Note [code = 69438-1] Goal Plan of Care Note [code = 28095-2] Goal Plan of Care Note [code = 67998-2] Goal Plan of Care Note [code = 20544-5] Goal Plan of Care Note [code = 17128-4] Goal Plan of Care Note [code = 16901-9] Goal Plan of Care Note [code = 07991-5] Goal Plan of Care Note [code = 02394-3] Goal Plan of Care Note [code = 36224-6] Goal Plan of Care Note [code = 31550-8] Goal Plan of Care Note [code = 09957-0] Goal Plan of Care Note [code = 26383-7] Goal Plan of Care Note [code = 27140-5] Goal Plan of Care Note [code = 35456-6] Goal Plan of Care Note [code = 19581-9] Goal Plan of Care Note [code = 03171-1] Goal Plan of Care Note [code = 59349-0] Goal Plan of Care Note [code = 38499-8] Goal Plan of Care Note [code = 70316-3] Goal Plan of Care Note [code = 11833-6] Goal Plan of Care Note [code = 62370-0] Goal Plan of Care Note [code = 61212-7] Goal Plan of Care Note [code = 83266-3] Goal Plan of Care Note [code = 72076-5] Goal Plan of Care Note [code = 31220-5] Goal Plan of Care Note [code = 52144-0] Goal Plan of Care Note [code = 03490-1] Goal Plan of Care Note [code = 34191-4] Goal Plan of Care Note [code = 15396-2] Goal Plan of Care Note [code = 88382-8] Goal Plan of Care Note [code = 82824-3] Goal Plan of Care Note [code = 25384-2] Goal Plan of Care Note [code = 85836-1] Goal Plan of Care Note [code = 06480-0] Goal Plan of Care Note [code = 80223-0] Goal Plan of Care Note [code = 37079-8] Goal Plan of Care Note [code = 05015-2] Goal Plan of Care Note [code = 15726-2] Goal Plan of Care Note [code = 05742-7] Goal Plan of Care Note [code = 02757-9] Goal Plan of Care Note [code = 41895-1] Goal Plan of Care Note [code = 07994-4] Goal Plan of Care Note [code = 03924-9] Goal Plan of Care Note [code = 58143-8] Goal Plan of Care Note [code = 11861-7] Goal Plan of Care Note [code = 95219-1] Goal Plan of Care Note [code = 58888-2] Goal Plan of Care Note [code = 69046-9] Goal Plan of Care Note [code = 24765-5] Goal Plan of Care Note [code = 98970-1] Goal Plan of Care Note [code = 55819-4] Goal Plan of Care Note [code = 85321-3] Goal Plan of Care Note [code = 15102-4] Goal Plan of Care Note [code = 81913-0] Goal Plan of Care Note [code = 05570-5] Goal Plan of Care Note [code = 53364-3] Goal Plan of Care Note [code = 31912-8] Goal Plan of Care Note [code = 03235-3] Goal Plan of Care Note [code = 76648-8] Goal Plan of Care Note [code = 88407-7] Goal Plan of Care Note [code = 22176-0] Goal Plan of Care Note [code = 67443-2] Goal Plan of Care Note [code = 02545-0] Goal Plan of Care Note [code = 22045-6] Goal Plan of Care Note [code = 46738-5] Goal Plan of Care Note [code = 12891-4] Goal Plan of Care Note [code = 60916-8] Goal Plan of Care Note [code = 46091-0] Goal Plan of Care Note [code = 99550-7] Encounters Start Date/Time End Date/Time Encounter Type Admission Type Attending [facility] Care Department Encounter ID Source 2023-09-17 10:05:02 Outpatient VITO PADRON [id number] [facility] 2023-02-21 08:14:00 Outpatient [facility] [id number] [facility] 2022-02-20 14:52:01 Outpatient [facility] [id number] [facility] 2024-01-13 15:35:24 2024-01-13 15:35:24 Outpatient [facility] [id number] Alexx Mendoza 2024-01-06 11:39:53 2024-01-06 11:39:53 Outpatient [facility] [id number] Alexx Soliman Reji 2024-01-02 13:46:16 2024-01-02 13:46:16 Outpatient [facility] [id number] Alexx Soliman Reji 2023-12-31 10:23:16 2023-12-31 10:23:16 Outpatient [facility] [id number] Alexx Mendoza 2023-12-27 10:41:09 2023-12-27 10:41:09 Outpatient [facility] [id number] Alexx Soliman Reji 2023-12-18 08:58:27 2023-12-18 08:58:27 Outpatient [facility] [id number] Alexx Soliman Reji 2023-12-16 11:07:47 2023-12-16 11:07:47 Outpatient [facility] [id number] Alexx Soliman Reji 2023-12-12 11:04:54 2023-12-12 11:04:54 Outpatient [facility] [id number] Alexx Mendoza 2023-12-09 11:05:46 2023-12-09 11:05:46 Outpatient [facility] [id number] Alexx Mendoza 2023-12-05 13:09:27 2023-12-05 13:09:27 Outpatient [facility] [id number] Alexx Mendoza 2023-11-28 09:09:34 2023-11-28 09:09:34 Outpatient [facility] [id number] Alexx Mendoza 2023-11-26 10:30:25 2023-11-26 10:30:25 Outpatient [facility] [id number] Alexx Mendoza 2023-11-21 13:51:35 2023-11-21 13:51:35 Outpatient [facility] [id number] Alexx Mendoza 2023-11-14 10:52:35 2023-11-14 10:52:35 Outpatient [facility] [id number] Alexx Mendoza 2023-11-08 10:52:46 2023-11-08 10:52:46 Outpatient [facility] [id number] Alexx Mendoza 2023-11-05 08:32:54 2023-11-05 08:32:54 Outpatient [facility] [id number] Alexx Mendoza 2023-10-24 08:50:15 2023-10-24 08:50:15 Outpatient [facility] [id number] Alexx Mendoza 2023-10-14 09:04:39 2023-10-14 09:04:39 Outpatient [facility] [id number] Alexx Mendoza 2023-10-11 11:06:09 2023-10-11 11:06:09 Outpatient [facility] [id number] Alexx Mendoza 2023-10-04 09:25:15 2023-10-04 09:25:15 Outpatient [facility] [id number] Alexx Mendoza 2023-10-01 00:00:00 2023-10-01 00:00:00 Letter (Out) Sol Ford [facility] 1.2.840.114 350.1.13.10 4.2.7.2.686 [id number] [facility] 2023-09-28 00:00:00 2023-09-28 00:00:00 Patient Secure Msg Doctor Unassigned, Malcolm [facility] 1.2.840.114 350.1.13.10 4.2.7.2.686 [id number] [facility] 2023-09-25 00:00:00 2023-09-25 00:00:00 Orders Only Doctor Unassigned, Malcolm [facility] 1.2.840.114 350.1.13.10 4.2.7.2.686 [id number] [facility] 2023-09-24 12:58:09 2023-09-24 12:58:09 Outpatient [facility] [id number] Alexx Soliman Reji 2023-09-19 10:43:49 2023-09-19 10:43:49 Outpatient [facility] [id number] Alexx Soliman [place] 2023-08-28 09:58:41 2023-08-28 09:58:41 Outpatient [facility] [id number] Alexx Mendoza 2023-08-26 10:14:36 2023-08-26 10:14:36 Outpatient [facility] [id number] Alexx Mendoza 2023-08-16 11:35:15 2023-08-16 11:35:15 Outpatient [facility] [id number] Alexx Mendoza 2023-08-15 10:33:08 2023-08-15 10:33:08 Outpatient [facility] [id number] Alexx Mendoza 2023-08-13 10:55:28 2023-08-13 10:55:28 Outpatient SFA [facility] [id number] Alexx Mendoza 2023-07-02 14:38:40 2023-07-02 14:38:40 Outpatient S[facility] [id number] Alexx Mendoza 2023-05-30 00:00:00 2023-05-30 00:00:00 OFFICE VISIT ESTAB PT LEVEL 1 STLMLC ST[facility] [id number] [facility] 2023-05-07 00:00:00 2023-05-07 00:00:00 (TEL) STLMLC STLMLC [id number] [facility] 2023-05-01 00:00:00 2023-05-01 00:00:00 OFFICE VISIT ESTAB PT LEVEL 3 STLMLC STLMLC [id number] [facility] 2023-04-05 00:00:00 2023-04-05 00:00:00 Addi Mcneal [facility] 1.2.840.114 350.1.13.10 4.2.7.2.686 [id number] [facility] 2023-02-21 00:00:00 2023-02-21 00:00:00 OFFICE VISIT NEW PT LEVEL 3 STLMLC STLMLC [id number] [facility] 2022-10-22 11:24:49 2022-10-22 23:59:00 Outpatient R RADIOLOGY [facility] [id number] [facility] 2022-10-22 11:24:49 2022-10-22 23:59:00 Hospital Encounter Radiology [facility] 1.2.840.114 350.1.13.10 4.2.7.2.686 [id number] [facility] 2022-10-22 10:36:41 2022-10-22 10:36:41 Outpatient [facility] [id number] Alexx Soliman Reji 2022-10-10 17:13:07 2022-10-10 17:13:07 Outpatient S[facility] [id number] Alexx Soliman Reji 2022-09-08 11:17:00 2022-09-08 11:17:00 Outpatient SFA [facility] [id number] Alexx Soliman Reji 2022-09-08 00:00:00 2022-09-08 00:00:00 Outpatient Visit [id number] [id number] [id number] 2022-09-05 13:00:00 2022-09-05 13:00:00 Outpatient SUNITA SRINIVASAN [facility] [id number] [facility] 2022-08-28 08:17:17 2022-08-28 08:17:17 Outpatient SFA [facility] [id number] Alexx Mendoza 2022-08-27 16:22:19 2022-08-27 16:22:19 Outpatient SFA [facility] [id number] Alexx Mendoza 2022-08-27 00:00:00 2022-08-27 00:00:00 Outpatient Visit [id number] [id number]-[id number] [id number] 2022-08-14 00:00:00 2022-08-14 00:00:00 Outpatient Visit [id number] [id number] [id number] c1fced 2022-08-07 00:00:00 2022-08-07 00:00:00 Outpatient Visit [id number] -[id number] [id number]-[id number] [id number]-[id number] [id number] 2022-08-06 00:00:00 2022-08-06 00:00:00 Outpatient Visit [id number]-[id number] [id number] 2022-07-18 00:00:00 2022-07-18 00:00:00 Outpatient Visit [id number]-[id number] [id number]-[id number] dbec3a 2022-07-10 10:17:04 2022-07-10 23:59:00 Outpatient R SAL SUGGSNA [facility] [id number] [facility] 2022-07-10 10:17:04 2022-07-10 23:59:00 Hospital Encounter Emilia Suggs [facility] 1.2.840.114 350.1.13.10 4.2.7.2.686 [id number] [facility] 2022-06-01 10:00:00 2022-06-01 10:00:00 Outpatient ADDI GRAJEDA HOWARD [facility] [id number] [facility] 2022-05-01 09:40:00 2022-05-01 10:07:03 Outpatient ADDI GRAJEDA HOWARD [facility] [id number] [facility] 2022-05-01 09:40:00 2022-05-01 10:07:03 Office Visit [facility] 1.2.840.114 350.1.13.10 4.2.7.2.686 [id number] [facility] 2022-02-02 11:30:00 2022-02-02 12:00:00 Office Visit Johanna Naranjo [facility]3] ISAIAS [facility] 1.2.840.114 350.1.13.10 4.2.7.2.686 [id number] [facility] 2022-02-02 11:30:00 2022-02-02 11:30:00 Outpatient R JOHANNA NARANJO SHIWYEdel [facility] [id number] [facility] 2022-01-16 15:15:00 2022-01-16 17:01:34 Outpatient R ALFONZO BALDERAS [facility] [id number] [facility] 2022-01-16 15:15:00 2022-01-16 17:01:34 [facility] 1[facility]20.114 350.1.13.10 4.2.7.2.686 [id number] [facility] 2022-01-16 15:00:00 2022-01-16 16:12:50 Outpatient R [facility]ITALIY [facility] [id number] [facility] 2022-01-16 15:00:00 2022-01-16 16:12:50 Office Visit Antonio [facility] BLDG. 1.0.114 350.1.13.10 4.2.7.2.686 [id number] [facility] 2022-01-16 00:00:00 2022-01-16 00:00:00 Orders Only Doctor Unassigned, Malcolm [facility] 1.2840.114 350.1.13.10 4.2.7.2.686 [id number] [facility] 2021-11-30 12:13:29 2021-11-30 23:59:00 Hospital Encounter Johanna Naranjo [facility] 1.20.114 350.1.13.10 4.2.7.2.686 [id number] [facility] 2021-11-30 12:15:00 2021-11-30 12:30:00 Paper Twister Tender Visit Pob, Adc Lab Main Johanna Naranjo [facility] BU[facility] 1.2840.114 350.1.13.10 4.2.7.2.686 [id number] [facility] 2021-11-30 12:15:00 2021-11-30 12:15:00 Outpatient R JOHANNA NARANJO SHIWAN [facility] [id number] [facility] 2021-11-30 11:30:00 2021-11-30 11:58:43 Outpatient R JOHANNA NARANJO SHIWAN [facility] [id number] [facility] 2021-11-30 11:30:00 2021-11-30 11:58:43 Office Visit Sharon Naranjoutedel [facility] BUILD[facility] 1.2.840.114 350.1.13.10 4.2.7.2.686 [id number] [facility] 2021-11-21 00:00:00 2021-11-21 00:00:00 Telephone Steven Addi [facility]?BLOSSOMJuan [facility] 1.2.840.114 350.1.13.10 4.2.7.2.686 [id number] [facility] 2021-09-13 00:00:00 2021-09-13 00:00:00 Telephone Krish Singer [facility] 1.2840.114 350.1.13.10 4.2.7.2.686 [id number] [facility] 2021-09-05 13:10:16 2021-09-05 13:54:57 Office Visit Sunita Montal[facility] Building 1.2840.114 350.1.13.10 4.2.7.2.686 [id number] [facility] 2021-09-05 13:00:00 2021-09-05 13:00:00 [id number] 2021-09-05 10:48:21 2021-09-05 11:26:42 Office Visit StevenAddi jones [facility]?Blossomjuan [facility] Medical Office Building 1.2.840.114 350.1.13.10 4.2.7.2.686 [id number] [facility] 2021-09-05 00:00:00 2021-09-05 00:00:00 Orders Only Doctor Unassigned, Malcolm [facility] 1.2.840.114 350.1.13.10 4.2.7.2.686 [id number] [facility] 2021-08-29 09:20:00 2021-08-29 09:20:00 Outpatient ADDI GRAJEDA HOWARD [facility] [id number] [facility] 2021-08-29 00:00:00 2021-08-29 00:00:00 Patient Secure Jose [facility] 1.840.114 350.1.13.10 4.2.7.2.686 [id number] [facility] 2021-08-24 00:00:00 2021-08-24 00:00:00 Telephone Addi Harris [facility]?Danielito eli Medical Office Building 1.840.114 350.1.13.10 4.2.7.2.686 [id number] [facility] 2021-08-17 00:00:00 2021-08-17 00:00:00 Patient Secure Jose [facility] 1.840.114 350.1.13.10 4.2.7.2.686 [id number] [facility] 2021-08-11 12:45:00 2021-08-11 12:45:00 Outpatient STEPHANIA ASHLEY [facility] [id number] [facility] [facility] 2021-08-11 11:08:37 2021-08-11 11:23:37 Paper Twister Tender Visit Pob, Adc Lab Stephania Smith formerly [facility] [id number] [id number] [id number] [facility] 2021-08-10 13:35:36 2021-08-10 14:27:23 Office Visit Jose Ratliff [facility] [id number] [id number] [facility] 2021-08-10 13:35:36 2021-08-10 14:27:23 Office Visit Jose Ratliff [facility] [id number] [id number] [id number] [id number] [facility] 2021-08-10 13:45:00 2021-08-10 13:45:00 Outpatient R JOSE RATLIFF [facility] [id number] [facility] 2021-08-10 00:00:00 2021-08-10 00:00:00 Telephone Jose Ratliff [facility] [id number] [id number] [facility] 2021-08-03 11:00:00 2021-08-03 11:00:00 Outpatient R JOHANNA NARANJO SHIWAN [facility] [id number] [facility] 2021-07-27 18:20:00 2021-07-27 18:20:00 Outpatient R [facility] [id number] [facility] 2021-07-25 09:00:00 2021-07-25 09:00:00 Outpatient SUNITA SRINIVASAN [facility] [id number] [facility] 2021-07-11 14:45:00 2021-07-11 14:45:00 Outpatient R CONNER WILDA [facility] [id number] [facility] 2021-06-13 14:30:00 2021-06-13 14:30:00 Outpatient R SAMUELSYRISH [facility] [id number] [facility] 2021-05-23 10:45:00 2021-05-23 10:45:00 Outpatient R TORRI NAGA [facility] [id number] [facility] 2021-05-18 09:20:00 2021-05-18 09:20:00 Outpatient R JOHN QUINTANA [facility] [id number] [facility] 2021-05-08 09:30:00 2021-05-08 09:30:00 Outpatient SUNITA SRINIVASAN [facility] [id number] [facility] 2021-04-25 13:15:00 2021-04-25 13:15:00 Outpatient R ALFONZO BALDERAS [facility] [id number] [facility] 2021-02-10 15:00:00 2021-02-10 15:00:00 Outpatient ADDI GRAJEDA HOWARD [facility] [id number] [facility] 2021-02-02 00:00:00 2021-02-02 00:00:00 Patient Outreach Gen Craig [facility] [id number] 2021-01-05 13:00:00 2021-01-05 13:00:00 Outpatient LORIE RAMEY [facility] [id number] [facility] 2020-12-26 10:45:00 2020-12-26 10:45:00 Outpatient R [facility] [id number] [facility] 2020-12-12 10:57:30 2020-12-12 15:38:19 Office Visit Milan Elizalde [facility] [id number] [id number] 2020-12-12 11:00:00 2020-12-12 11:00:00 Outpatient Manjit GTZRATLIFF JOSE [facility] [id number] [facility] 2020-12-08 11:40:00 2020-12-08 11:40:00 Outpatient R KAY MARROQUIN [facility] [id number] [facility] 2020-10-21 15:20:00 2020-10-21 15:20:00 Outpatient R SARA FISHER [facility] [id number] [facility] 2020-10-10 11:15:00 2020-10-10 11:15:00 Outpatient R [facility] [id number] [facility] 2020-09-23 15:00:00 2020-09-23 15:00:00 Outpatient R [facility] [id number] [facility] 2020-08-29 09:20:00 2020-08-29 09:20:00 Outpatient ADDI GRAJEDA HOWARD [facility] [id number] [facility] 2020-08-22 16:00:00 2020-08-22 16:00:00 Outpatient ADDI GRAJEDA HOWARD [facility] [id number] [facility] 2020-08-19 09:20:00 2020-08-19 09:20:00 Outpatient ADDI GRAJEDA HOWARD [facility] [id number] [facility] 2020-06-27 13:00:00 2020-06-27 13:00:00 Outpatient STEPHANIA ORANTES [facility] [id number] [facility] 2020-04-22 14:15:00 2020-04-22 14:15:00 Outpatient JULIO C MESA [facility] [id number] [facility] 2020-03-18 14:00:00 2020-03-18 14:00:00 Outpatient JULIO C MESA [facility] [id number] [facility] 2020-02-22 13:30:00 2020-02-22 13:30:00 Outpatient Manjit MIGUELSHAQ [facility] [id number] [facility] 2020-01-13 10:10:00 2020-01-13 10:10:00 Outpatient AUGIE DEWITT [facility] [id number] [facility] 2019-12-30 10:00:00 2019-12-30 11:30:09 Outpatient Manjit WHALEYAUGIE [facility] [id number] [facility] 2019-11-15 12:00:00 2019-11-15 13:29:33 Outpatient Manjit BROWN JUSTINE [facility] [id number] [facility] 2019-09-24 10:00:00 2019-09-24 10:40:47 Outpatient Manjit LARSONVENTURA [facility] [id number] [facility] Results Test Description Test Time Test Comments Results Result Co mments Source OCCULT BLD,FECAL,IMMUNOASSAY [id number] 09:56:34* Test Item Value Reference Range Interpretation Comme nts OCCULT BLD, FECAL (test code = 33465) NEGATIVE NEGATIVE UNLESS OTHER [place] INDICATED, ALL TESTING PERFORMED [facility] [address] [place] [address] [place] AL[place]: SKYLER SAUER M.D. CLIA NUMBER [id number] [facility] [place]. [id number] OCCULT BLD,FECAL,IMMUNOASSAY [id number] 00:00:00* Test Item Value Reference Range Interpretation Comme nts OCCULT BLD, FECAL (test code = 70694) NEGATIVE OCCULT BLD,FECAL,IMMUNOASSAY [id number] 00:00:00* Test Item Value Reference Range Interpretation Comme nts OCCULT BLD, FECAL (test code = 85624) NEGATIVE OCCULT BLD,FECAL,IMMUNOASSAY [id number] 00:00:00* Test Item Value Reference Range Interpretation Comme nts OCCULT BLD, FECAL (test code = 70797) NEGATIVE LIPID [id number] 03:01:05* Test Item Value Reference Range Interpretation Comme nts CHOLESTEROL (test code = 2210) 252 MG/DL <200 H TRIGLYCERIDES (test code = 2232) 131 MG/DL <150 HDL CHOLESTEROL (test code = 0) 57 MG/DL >39 CALC LDL CHOL (test code = 223) 168 MG/DL <100 H NOTE: CALCULATED LDL IS BASED ON JIMBO-RICHARDS METHOD WHICHINCLUDES ADJUSTABLE TRIGLYCERIDE:VLDL CHOLESTEROL RATIO.THIS FACTOR VARIES BY MEASURED TRIGLYCERIDE AND NON-HDLCHOLESTEROL CONCENTRATIONS WITH INCREASED CALCULATED LDL SEENIN HIGHER TRIGLYCERIDE OR LOWER NON-HDL SPECIMENS. FOR MOREINFORMATION, SEE CLIENT ANNOUNCEMENT AT [email or web address] RISK RATIO LDL/HDL (test code = 223) 2.95 RATIO <3.22 COMPREHENSIVE METABOLIC [id number] 03:01:05* Test Item Value Reference Range Interpretation Comme nts GLUCOSE (test code = 2216) 101 MG/DL 70-99 H BUN (test code = 2207) 14 MG/DL 6-20 CREATININE (test code = 221) 0.97 MG/DL 0.60-1.30 eGFR (2020 CKD-EPI) (test code = 68864) 71 ML/MIN/1.73 >60 CALC BUN/CREAT (test code = 2235) 14 RATIO 6-28 SODIUM (test code = 223) 141 MEQ/L 133-146 POTASSIUM (test code = 2228) 3.9 MEQ/L 3.5-5.4 CHLORIDE (test code = 2215) 107 MEQ/L 95-107 CARBON DIOXIDE (test code = 2206) 20 MEQ/L 19-31 CALCIUM (test code = 220) 9.6 MG/DL 8.5-10.5 PROTEIN, TOTAL (test code = 2228) 7.8 G/DL 6.1-8.3 ALBUMIN (test code = 2200) 4.5 G/DL 3.5-5.2 CALC GLOBULIN (test code = 2240) 3.3 G/DL 1.9-3.7 CALC A/G RATIO (test code = 223) 1.4 RATIO 1.0-2.6 BILIRUBIN, TOTAL (test code = 2206) 0.3 MG/DL See_Comment [Automated me ssage] The system which generated this result transmitted reference range: <=1.2. The reference range was not used to interpret this result as normal/abnormal. ALKALINE PHOSPHATASE (test code = 2203) 79 U/L 40-130 AST (test code = 2218) 22 U/L 9-40 ALT (test code = 2219) 19 U/L 5-40 UNLESS OTHERWISE INDICATED, ALL TESTING PERFORMED [facility] [address] [place] [address] [place] ALDERMAN: SKYLER SAUER M.D. CLIA NUMBER [id number] [facility] [place]. [id number] HEMOGLOBIN [id number] 02:02:40* Test Item Value Reference Range Interpretation Comme nts HEMOGLOBIN A1c (test code = 87048) 5.7 % 4.2-5.6 H HEMOGLOBIN [id number] 00:00:00* Test Item Value Reference Range Interpretation Comme nts HEMOGLOBIN A1c (test code = 27805) 5.8 % HEMOGLOBIN [id number] 00:00:00* Test Item Value Reference Range Interpretation Comme nts HEMOGLOBIN A1c (test code = 40034) 5.8 % HEMOGLOBIN [id number] 00:00:00* Test Item Value Reference Range Interpretation Comme nts HEMOGLOBIN A1c (test code = 46670) 5.8 % HEMOGLOBIN [id number] 00:00:00* Test Item Value Reference Range Interpretation Comme nts HEMOGLOBIN A1c (test code = 29764) 5.8 % HEMOGLOBIN [id number] 00:00:00* Test Item Value Reference Range Interpretation Comme nts HEMOGLOBIN A1c (test code = 88893) 5.8 % HEMOGLOBIN [id number] 00:00:00* Test Item Value Reference Range Interpretation Comme nts HEMOGLOBIN A1c (test code = 03193) 5.8 % HEMOGLOBIN [id number] 00:00:00* Test Item Value Reference Range Interpretation Comme nts HEMOGLOBIN A1c (test code = 73726) 5.8 % HEMOGLOBIN [id number] 00:00:00* Test Item Value Reference Range Interpretation Comme nts HEMOGLOBIN A1c (test code = 20925) 5.8 % HEMOGLOBIN [id number] 00:00:00* Test Item Value Reference Range Interpretation Comme nts HEMOGLOBIN A1c (test code = 19672) 5.8 % HEMOGLOBIN [id number] 00:00:00* Test Item Value Reference Range Interpretation Comme nts HEMOGLOBIN A1c (test code = 83717) 5.8 % HEMOGLOBIN [id number] 00:00:00* Test Item Value Reference Range Interpretation Comme nts HEMOGLOBIN A1c (test code = 27244) 5.8 % HEMOGLOBIN [id number] 00:00:00* Test Item Value Reference Range Interpretation Comme nts HEMOGLOBIN A1c (test code = 63902) 5.8 % HEMOGLOBIN [id number] 00:00:00* Test Item Value Reference Range Interpretation Comme nts HEMOGLOBIN A1c (test code = 85932) 5.8 % HEMOGLOBIN [id number] 00:00:00* Test Item Value Reference Range Interpretation Comme nts HEMOGLOBIN A1c (test code = 37220) 5.8 % HEMOGLOBIN [id number] 00:00:00* Test Item Value Reference Range Interpretation Comme nts HEMOGLOBIN A1c (test code = 85081) 5.8 % HEMOGLOBIN [id number] 00:00:00* Test Item Value Reference Range Interpretation Comme nts HEMOGLOBIN A1c (test code = 99711) 5.8 % HEMOGLOBIN [id number] 00:00:00* Test Item Value Reference Range Interpretation Comme nts HEMOGLOBIN A1c (test code = 57862) 5.8 % HEMOGLOBIN [id number] 00:00:00* Test Item Value Reference Range Interpretation Comme nts HEMOGLOBIN A1c (test code = 12630) 5.8 % HEMOGLOBIN [id number] 00:00:00* Test Item Value Reference Range Interpretation Comme nts HEMOGLOBIN A1c (test code = 14281) 5.7 % HEMOGLOBIN [id number] 00:00:00* Test Item Value Reference Range Interpretation Comme nts HEMOGLOBIN A1c (test code = 58650) 5.7 % HEMOGLOBIN [id number] 00:00:00* Test Item Value Reference Range Interpretation Comme nts HEMOGLOBIN A1c (test code = 70830) 5.7 % LIPID [id number] 00:00:00* Test Item Value Reference Range Interpretation Comme nts CHOLESTEROL (test code = 2210) 119 MG/DL TRIGLYCERIDES (test code = 2232) 140 MG/DL HDL CHOLESTEROL (test code = 2220) 49 MG/DL CALC LDL CHOL (test code = 2237) 48 MG/DL RISK RATIO LDL/HDL (test cod e = 2238) 0.98 RATIO LIPID [id number] 00:00:00* Test Item Value Reference Range Interpretation Comme nts CHOLESTEROL (test code = 2210) 119 MG/DL TRIGLYCERIDES (test code = 2232) 140 MG/DL HDL CHOLESTEROL (test code = 2220) 49 MG/DL CALC LDL CHOL (test code = 2237) 48 MG/DL RISK RATIO LDL/HDL (test cod e = 2238) 0.98 RATIO COMPREHENSIVE METABOLIC [id number] 00:00:00* Test Item Value Reference Range Interpretation Comme nts GLUCOSE (test code = 2217) 101 MG/DL BUN (test code = 2208) 18 MG/DL CREATININE (test code = 2214) 0.88 MG/DL eGFR AMER. (test cod e = 86045) 89 ML/MIN/1.73 eGFR NON- AMER. (test code = 52039) 77 ML/MIN/1.73 CALC BUN/CREAT (test code = 2235) 20 RATIO SODIUM (test code = 2231) 139 MEQ/L POTASSIUM (test code = 2228) 3.9 MEQ/L CHLORIDE (test code = 2215) 109 MEQ/L CARBON DIOXIDE (test code = 2206) 18 MEQ/L CALCIUM (test code = 2209) 8.9 MG/DL PROTEIN, TOTAL (test code = 2229) 7.6 G/DL ALBUMIN (test code = 2201) 4.0 G/DL CALC GLOBULIN (test code = 2240) 3.6 G/DL CALC A/G RATIO (test code = 2234) 1.1 RATIO BILIRUBIN, TOTAL (test code = 2207) 0.3 MG/DL ALKALINE PHOSPHATASE (test code = 2204) 79 U/L AST (test code = 2218) 28 U/L ALT (test code = 2219) 28 U/L COMPREHENSIVE METABOLIC [id number] 00:00:00* Test Item Value Reference Range Interpretation Comme nts GLUCOSE (test code = 2217) 101 MG/DL BUN (test code = 2208) 18 MG/DL CREATININE (test code = 2214) 0.88 MG/DL eGFR AMER. (test cod e = 56910) 89 ML/MIN/1.73 eGFR NON- AMER. (test code = 02564) 77 ML/MIN/1.73 CALC BUN/CREAT (test code = 2235) 20 RATIO SODIUM (test code = 2231) 139 MEQ/L POTASSIUM (test code = 2228) 3.9 MEQ/L CHLORIDE (test code = 2215) 109 MEQ/L CARBON DIOXIDE (test code = 2206) 18 MEQ/L CALCIUM (test code = 2209) 8.9 MG/DL PROTEIN, TOTAL (test code = 2229) 7.6 G/DL ALBUMIN (test code = 2201) 4.0 G/DL CALC GLOBULIN (test code = 2240) 3.6 G/DL CALC A/G RATIO (test code = 2234) 1.1 RATIO BILIRUBIN, TOTAL (test code = 7) 0.3 MG/DL ALKALINE PHOSPHATASE (test code = 2203) 79 U/L AST (test code = 8) 28 U/L ALT (test code = 2218) 28 U/L TSH + FREE T4 [id number] 00:00:00* Test Item Value Reference Range Interpretation Comme nts TSH, THIRD GENERATION (test code = 2821) 1.110 UIU/ML FREE T4 (THYROXINE) (test co de = 2823) 0.83 NG/DL TSH + FREE T4 [id number] 00:00:00* Test Item Value Reference Range Interpretation Comme nts TSH, THIRD GENERATION (test code = 2821) 1.110 UIU/ML FREE T4 (THYROXINE) (test co de = 2823) 0.83 NG/DL TSH + FREE T4 [id number] 00:00:00* Test Item Value Reference Range Interpretation Comme nts TSH, THIRD GENERATION (test code = 2821) 1.110 UIU/ML FREE T4 (THYROXINE) (test co de = 2823) 0.83 NG/DL HEMOGLOBIN [id number] 00:00:00* Test Item Value Reference Range Interpretation Comme nts HEMOGLOBIN A1c (test code = 20091) 5.7 % HEMOGLOBIN [id number] 00:00:00* Test Item Value Reference Range Interpretation Comme nts HEMOGLOBIN A1c (test code = 10623) 5.7 % HEMOGLOBIN [id number] 00:00:00* Test Item Value Reference Range Interpretation Comme nts HEMOGLOBIN A1c (test code = 97731) 5.7 % LIPID [id number] 00:00:00* Test Item Value Reference Range Interpretation Comme nts CHOLESTEROL (test code = 2210) 119 MG/DL TRIGLYCERIDES (test code = 2232) 140 MG/DL HDL CHOLESTEROL (test code = 2220) 49 MG/DL CALC LDL CHOL (test code = 2237) 48 MG/DL RISK RATIO LDL/HDL (test cod e = 2238) 0.98 RATIO LIPID [id number] 00:00:00* Test Item Value Reference Range Interpretation Comme nts CHOLESTEROL (test code = 2210) 119 MG/DL TRIGLYCERIDES (test code = 2232) 140 MG/DL HDL CHOLESTEROL (test code = 2220) 49 MG/DL CALC LDL CHOL (test code = 2237) 48 MG/DL RISK RATIO LDL/HDL (test cod e = 2238) 0.98 RATIO COMPREHENSIVE METABOLIC [id number] 00:00:00* Test Item Value Reference Range Interpretation Comme nts GLUCOSE (test code = 2217) 101 MG/DL BUN (test code = 2208) 18 MG/DL CREATININE (test code = 2214) 0.88 MG/DL eGFR AMER. (test cod e = 94223) 89 ML/MIN/1.73 eGFR NON- AMER. (test code = 43108) 77 ML/MIN/1.73 CALC BUN/CREAT (test code = 2235) 20 RATIO SODIUM (test code = 2231) 139 MEQ/L POTASSIUM (test code = 2228) 3.9 MEQ/L CHLORIDE (test code = 2215) 109 MEQ/L CARBON DIOXIDE (test code = 2206) 18 MEQ/L CALCIUM (test code = 2209) 8.9 MG/DL PROTEIN, TOTAL (test code = 2229) 7.6 G/DL ALBUMIN (test code = 2201) 4.0 G/DL CALC GLOBULIN (test code = 2240) 3.6 G/DL CALC A/G RATIO (test code = 2234) 1.1 RATIO BILIRUBIN, TOTAL (test code = 2207) 0.3 MG/DL ALKALINE PHOSPHATASE (test code = 2204) 79 U/L AST (test code = 2218) 28 U/L ALT (test code = 2219) 28 U/L COMPREHENSIVE METABOLIC [id number] 00:00:00* Test Item Value Reference Range Interpretation Comme nts GLUCOSE (test code = 2217) 101 MG/DL BUN (test code = 2208) 18 MG/DL CREATININE (test code = 2214) 0.88 MG/DL eGFR AMER. (test cod e = 10429) 89 ML/MIN/1.73 eGFR NON- AMER. (test code = 38816) 77 ML/MIN/1.73 CALC BUN/CREAT (test code = 2235) 20 RATIO SODIUM (test code = 2231) 139 MEQ/L POTASSIUM (test code = 2228) 3.9 MEQ/L CHLORIDE (test code = 2215) 109 MEQ/L CARBON DIOXIDE (test code = 2206) 18 MEQ/L CALCIUM (test code = 2209) 8.9 MG/DL PROTEIN, TOTAL (test code = 2229) 7.6 G/DL ALBUMIN (test code = 2201) 4.0 G/DL CALC GLOBULIN (test code = 2240) 3.6 G/DL CALC A/G RATIO (test code = 2234) 1.1 RATIO BILIRUBIN, TOTAL (test code = 2207) 0.3 MG/DL ALKALINE PHOSPHATASE (test code = 2204) 79 U/L AST (test code = 2218) 28 U/L ALT (test code = 2219) 28 U/L TSH + FREE T4 [id number] 00:00:00* Test Item Value Reference Range Interpretation Comme nts TSH, THIRD GENERATION (test code = 2821) 1.110 UIU/ML FREE T4 (THYROXINE) (test co de = 2823) 0.83 NG/DL TSH + FREE T4 [id number] 00:00:00* Test Item Value Reference Range Interpretation Comme nts TSH, THIRD GENERATION (test code = 2821) 1.110 UIU/ML FREE T4 (THYROXINE) (test co de = 2823) 0.83 NG/DL TSH + FREE T4 [id number] 00:00:00* Test Item Value Reference Range Interpretation Comme nts TSH, THIRD GENERATION (test code = 2821) 1.110 UIU/ML FREE T4 (THYROXINE) (test co de = 2823) 0.83 NG/DL HEMOGLOBIN [id number] 00:00:00* Test Item Value Reference Range Interpretation Comme nts HEMOGLOBIN A1c (test code = 40472) 5.7 % HEMOGLOBIN [id number] 00:00:00* Test Item Value Reference Range Interpretation Comme nts HEMOGLOBIN A1c (test code = 72123) 5.7 % HEMOGLOBIN [id number] 00:00:00* Test Item Value Reference Range Interpretation Comme nts HEMOGLOBIN A1c (test code = 89847) 5.7 % LIPID [id number] 00:00:00* Test Item Value Reference Range Interpretation Comme nts CHOLESTEROL (test code = 2210) 119 MG/DL TRIGLYCERIDES (test code = 2232) 140 MG/DL HDL CHOLESTEROL (test code = 2220) 49 MG/DL CALC LDL CHOL (test code = 2237) 48 MG/DL RISK RATIO LDL/HDL (test cod e = 2238) 0.98 RATIO LIPID [id number] 00:00:00* Test Item Value Reference Range Interpretation Comme nts CHOLESTEROL (test code = 2210) 119 MG/DL TRIGLYCERIDES (test code = 2232) 140 MG/DL HDL CHOLESTEROL (test code = 2220) 49 MG/DL CALC LDL CHOL (test code = 2237) 48 MG/DL RISK RATIO LDL/HDL (test cod e = 2238) 0.98 RATIO COMPREHENSIVE METABOLIC [id number] 00:00:00* Test Item Value Reference Range Interpretation Comme nts GLUCOSE (test code = 2217) 101 MG/DL BUN (test code = 2208) 18 MG/DL CREATININE (test code = 2214) 0.88 MG/DL eGFR AMER. (test cod e = 12467) 89 ML/MIN/1.73 eGFR NON- AMER. (test code = 35981) 77 ML/MIN/1.73 CALC BUN/CREAT (test code = 2235) 20 RATIO SODIUM (test code = 2231) 139 MEQ/L POTASSIUM (test code = 2228) 3.9 MEQ/L CHLORIDE (test code = 2215) 109 MEQ/L CARBON DIOXIDE (test code = 2206) 18 MEQ/L CALCIUM (test code = 2209) 8.9 MG/DL PROTEIN, TOTAL (test code = 2229) 7.6 G/DL ALBUMIN (test code = 2201) 4.0 G/DL CALC GLOBULIN (test code = 2240) 3.6 G/DL CALC A/G RATIO (test code = 2234) 1.1 RATIO BILIRUBIN, TOTAL (test code = 2207) 0.3 MG/DL ALKALINE PHOSPHATASE (test code = 2204) 79 U/L AST (test code = 2218) 28 U/L ALT (test code = 2219) 28 U/L COMPREHENSIVE METABOLIC [id number] 00:00:00* Test Item Value Reference Range Interpretation Comme nts GLUCOSE (test code = 2217) 101 MG/DL BUN (test code = 2208) 18 MG/DL CREATININE (test code = 2214) 0.88 MG/DL eGFR AMER. (test cod e = 38815) 89 ML/MIN/1.73 eGFR NON- AMER. (test code = 67437) 77 ML/MIN/1.73 CALC BUN/CREAT (test code = 2235) 20 RATIO SODIUM (test code = 2231) 139 MEQ/L POTASSIUM (test code = 2228) 3.9 MEQ/L CHLORIDE (test code = 2215) 109 MEQ/L CARBON DIOXIDE (test code = 2206) 18 MEQ/L CALCIUM (test code = 2209) 8.9 MG/DL PROTEIN, TOTAL (test code = 2229) 7.6 G/DL ALBUMIN (test code = 2201) 4.0 G/DL CALC GLOBULIN (test code = 2240) 3.6 G/DL CALC A/G RATIO (test code = 2234) 1.1 RATIO BILIRUBIN, TOTAL (test code = 2207) 0.3 MG/DL ALKALINE PHOSPHATASE (test code = 2204) 79 U/L AST (test code = 2218) 28 U/L ALT (test code = 2219) 28 U/L TSH + FREE T4 [id number] 00:00:00* Test Item Value Reference Range Interpretation Comme nts TSH, THIRD GENERATION (test code = 2821) 1.110 UIU/ML FREE T4 (THYROXINE) (test co de = 2823) 0.83 NG/DL TSH + FREE T4 [id number] 00:00:00* Test Item Value Reference Range Interpretation Comme nts TSH, THIRD GENERATION (test code = 2821) 1.110 UIU/ML FREE T4 (THYROXINE) (test co de = 2823) 0.83 NG/DL TSH + FREE T4 [id number] 00:00:00* Test Item Value Reference Range Interpretation Comme nts TSH, THIRD GENERATION (test code = 2821) 1.110 UIU/ML FREE T4 (THYROXINE) (test co de = 2823) 0.83 NG/DL HEMOGLOBIN [id number] 00:00:00* Test Item Value Reference Range Interpretation Comme nts HEMOGLOBIN A1c (test code = 76069) 5.7 % HEMOGLOBIN [id number] 00:00:00* Test Item Value Reference Range Interpretation Comme nts HEMOGLOBIN A1c (test code = 73049) 5.7 % HEMOGLOBIN [id number] 00:00:00* Test Item Value Reference Range Interpretation Comme nts HEMOGLOBIN A1c (test code = 08556) 5.7 % LIPID [id number] 00:00:00* Test Item Value Reference Range Interpretation Comme nts CHOLESTEROL (test code = 2210) 119 MG/DL TRIGLYCERIDES (test code = 2232) 140 MG/DL HDL CHOLESTEROL (test code = 2220) 49 MG/DL CALC LDL CHOL (test code = 2237) 48 MG/DL RISK RATIO LDL/HDL (test cod e = 2238) 0.98 RATIO LIPID [id number] 00:00:00* Test Item Value Reference Range Interpretation Comme nts CHOLESTEROL (test code = 2210) 119 MG/DL TRIGLYCERIDES (test code = 2232) 140 MG/DL HDL CHOLESTEROL (test code = 2220) 49 MG/DL CALC LDL CHOL (test code = 2237) 48 MG/DL RISK RATIO LDL/HDL (test cod e = 2238) 0.98 RATIO COMPREHENSIVE METABOLIC [id number] 00:00:00* Test Item Value Reference Range Interpretation Comme nts GLUCOSE (test code = 2217) 101 MG/DL BUN (test code = 2208) 18 MG/DL CREATININE (test code = 2214) 0.88 MG/DL eGFR AMER. (test cod e = 27231) 89 ML/MIN/1.73 eGFR NON- AMER. (test code = 66273) 77 ML/MIN/1.73 CALC BUN/CREAT (test code = 2235) 20 RATIO SODIUM (test code = 2231) 139 MEQ/L POTASSIUM (test code = 2228) 3.9 MEQ/L CHLORIDE (test code = 2215) 109 MEQ/L CARBON DIOXIDE (test code = 2206) 18 MEQ/L CALCIUM (test code = 2209) 8.9 MG/DL PROTEIN, TOTAL (test code = 2229) 7.6 G/DL ALBUMIN (test code = 2201) 4.0 G/DL CALC GLOBULIN (test code = 2240) 3.6 G/DL CALC A/G RATIO (test code = 2234) 1.1 RATIO BILIRUBIN, TOTAL (test code = 2207) 0.3 MG/DL ALKALINE PHOSPHATASE (test code = 2204) 79 U/L AST (test code = 2218) 28 U/L ALT (test code = 2219) 28 U/L COMPREHENSIVE METABOLIC [id number] 00:00:00* Test Item Value Reference Range Interpretation Comme nts GLUCOSE (test code = 2217) 101 MG/DL BUN (test code = 2208) 18 MG/DL CREATININE (test code = 2214) 0.88 MG/DL eGFR AMER. (test cod e = 78880) 89 ML/MIN/1.73 eGFR NON- AMER. (test code = 67824) 77 ML/MIN/1.73 CALC BUN/CREAT (test code = 2235) 20 RATIO SODIUM (test code = 2231) 139 MEQ/L POTASSIUM (test code = 2228) 3.9 MEQ/L CHLORIDE (test code = 2215) 109 MEQ/L CARBON DIOXIDE (test code = 2206) 18 MEQ/L CALCIUM (test code = 2209) 8.9 MG/DL PROTEIN, TOTAL (test code = 2229) 7.6 G/DL ALBUMIN (test code = 2201) 4.0 G/DL CALC GLOBULIN (test code = 2240) 3.6 G/DL CALC A/G RATIO (test code = 2234) 1.1 RATIO BILIRUBIN, TOTAL (test code = 2207) 0.3 MG/DL ALKALINE PHOSPHATASE (test code = 2204) 79 U/L AST (test code = 2218) 28 U/L ALT (test code = 2219) 28 U/L TSH + FREE T4 [id number] 00:00:00* Test Item Value Reference Range Interpretation Comme nts TSH, THIRD GENERATION (test code = 2821) 1.110 UIU/ML FREE T4 (THYROXINE) (test co de = 2823) 0.83 NG/DL TSH + FREE T4 [id number] 00:00:00* Test Item Value Reference Range Interpretation Comme nts TSH, THIRD GENERATION (test code = 2821) 1.110 UIU/ML FREE T4 (THYROXINE) (test co de = 2823) 0.83 NG/DL TSH + FREE T4 [id number] 00:00:00* Test Item Value Reference Range Interpretation Comme nts TSH, THIRD GENERATION (test code = 2821) 1.110 UIU/ML FREE T4 (THYROXINE) (test co de = 2823) 0.83 NG/DL HEMOGLOBIN [id number] 00:00:00* Test Item Value Reference Range Interpretation Comme nts HEMOGLOBIN A1c (test code = 90722) 5.7 % HEMOGLOBIN [id number] 00:00:00* Test Item Value Reference Range Interpretation Comme nts HEMOGLOBIN A1c (test code = 70191) 5.7 % HEMOGLOBIN [id number] 00:00:00* Test Item Value Reference Range Interpretation Comme nts HEMOGLOBIN A1c (test code = 82679) 5.7 % LIPID [id number] 00:00:00* Test Item Value Reference Range Interpretation Comme nts CHOLESTEROL (test code = 2210) 119 MG/DL TRIGLYCERIDES (test code = 2232) 140 MG/DL HDL CHOLESTEROL (test code = 2220) 49 MG/DL CALC LDL CHOL (test code = 2237) 48 MG/DL RISK RATIO LDL/HDL (test cod e = 2238) 0.98 RATIO LIPID [id number] 00:00:00* Test Item Value Reference Range Interpretation Comme nts CHOLESTEROL (test code = 2210) 119 MG/DL TRIGLYCERIDES (test code = 2232) 140 MG/DL HDL CHOLESTEROL (test code = 2220) 49 MG/DL CALC LDL CHOL (test code = 2237) 48 MG/DL RISK RATIO LDL/HDL (test cod e = 2238) 0.98 RATIO COMPREHENSIVE METABOLIC [id number] 00:00:00* Test Item Value Reference Range Interpretation Comme nts GLUCOSE (test code = 2217) 101 MG/DL BUN (test code = 2208) 18 MG/DL CREATININE (test code = 2214) 0.88 MG/DL eGFR AMER. (test cod e = 89393) 89 ML/MIN/1.73 eGFR NON- AMER. (test code = 58731) 77 ML/MIN/1.73 CALC BUN/CREAT (test code = 2235) 20 RATIO SODIUM (test code = 2231) 139 MEQ/L POTASSIUM (test code = 2228) 3.9 MEQ/L CHLORIDE (test code = 2215) 109 MEQ/L CARBON DIOXIDE (test code = 2206) 18 MEQ/L CALCIUM (test code = 2209) 8.9 MG/DL PROTEIN, TOTAL (test code = 2229) 7.6 G/DL ALBUMIN (test code = 2201) 4.0 G/DL CALC GLOBULIN (test code = 2240) 3.6 G/DL CALC A/G RATIO (test code = 2234) 1.1 RATIO BILIRUBIN, TOTAL (test code = 2207) 0.3 MG/DL ALKALINE PHOSPHATASE (test code = 2204) 79 U/L AST (test code = 2218) 28 U/L ALT (test code = 2219) 28 U/L COMPREHENSIVE METABOLIC [id number] 00:00:00* Test Item Value Reference Range Interpretation Comme nts GLUCOSE (test code = 2217) 101 MG/DL BUN (test code = 2208) 18 MG/DL CREATININE (test code = 2214) 0.88 MG/DL eGFR AMER. (test cod e = 86835) 89 ML/MIN/1.73 eGFR NON- AMER. (test code = 43757) 77 ML/MIN/1.73 CALC BUN/CREAT (test code = 2235) 20 RATIO SODIUM (test code = 2231) 139 MEQ/L POTASSIUM (test code = 2228) 3.9 MEQ/L CHLORIDE (test code = 2215) 109 MEQ/L CARBON DIOXIDE (test code = 2206) 18 MEQ/L CALCIUM (test code = 2209) 8.9 MG/DL PROTEIN, TOTAL (test code = 2229) 7.6 G/DL ALBUMIN (test code = 2201) 4.0 G/DL CALC GLOBULIN (test code = 2240) 3.6 G/DL CALC A/G RATIO (test code = 2234) 1.1 RATIO BILIRUBIN, TOTAL (test code = 2207) 0.3 MG/DL ALKALINE PHOSPHATASE (test code = 2204) 79 U/L AST (test code = 2218) 28 U/L ALT (test code = 2219) 28 U/L TSH + FREE T4 [id number] 00:00:00* Test Item Value Reference Range Interpretation Comme nts TSH, THIRD GENERATION (test code = 2821) 1.110 UIU/ML FREE T4 (THYROXINE) (test co de = 2823) 0.83 NG/DL TSH + FREE T4 [id number] 00:00:00* Test Item Value Reference Range Interpretation Comme nts TSH, THIRD GENERATION (test code = 2821) 1.110 UIU/ML FREE T4 (THYROXINE) (test co de = 2823) 0.83 NG/DL TSH + FREE T4 [id number] 00:00:00* Test Item Value Reference Range Interpretation Comme nts TSH, THIRD GENERATION (test code = 2821) 1.110 UIU/ML FREE T4 (THYROXINE) (test co de = 2823) 0.83 NG/DL HEMOGLOBIN [id number] 00:00:00* Test Item Value Reference Range Interpretation Comme nts HEMOGLOBIN A1c (test code = 26667) 5.7 % HEMOGLOBIN [id number] 00:00:00* Test Item Value Reference Range Interpretation Comme nts HEMOGLOBIN A1c (test code = 01316) 5.7 % HEMOGLOBIN [id number] 00:00:00* Test Item Value Reference Range Interpretation Comme nts HEMOGLOBIN A1c (test code = 85598) 5.7 % LIPID [id number] 00:00:00* Test Item Value Reference Range Interpretation Comme nts CHOLESTEROL (test code = 2210) 119 MG/DL TRIGLYCERIDES (test code = 2232) 140 MG/DL HDL CHOLESTEROL (test code = 2220) 49 MG/DL CALC LDL CHOL (test code = 2237) 48 MG/DL RISK RATIO LDL/HDL (test cod e = 2238) 0.98 RATIO LIPID [id number] 00:00:00* Test Item Value Reference Range Interpretation Comme nts CHOLESTEROL (test code = 2210) 119 MG/DL TRIGLYCERIDES (test code = 2232) 140 MG/DL HDL CHOLESTEROL (test code = 2220) 49 MG/DL CALC LDL CHOL (test code = 2237) 48 MG/DL RISK RATIO LDL/HDL (test cod e = 2238) 0.98 RATIO COMPREHENSIVE METABOLIC [id number] 00:00:00* Test Item Value Reference Range Interpretation Comme nts GLUCOSE (test code = 2217) 101 MG/DL BUN (test code = 2208) 18 MG/DL CREATININE (test code = 2214) 0.88 MG/DL eGFR AMER. (test cod e = 63887) 89 ML/MIN/1.73 eGFR NON- AMER. (test code = 42172) 77 ML/MIN/1.73 CALC BUN/CREAT (test code = 2235) 20 RATIO SODIUM (test code = 2231) 139 MEQ/L POTASSIUM (test code = 2228) 3.9 MEQ/L CHLORIDE (test code = 2215) 109 MEQ/L CARBON DIOXIDE (test code = 2206) 18 MEQ/L CALCIUM (test code = 2209) 8.9 MG/DL PROTEIN, TOTAL (test code = 2229) 7.6 G/DL ALBUMIN (test code = 2201) 4.0 G/DL CALC GLOBULIN (test code = 2240) 3.6 G/DL CALC A/G RATIO (test code = 2234) 1.1 RATIO BILIRUBIN, TOTAL (test code = 2207) 0.3 MG/DL ALKALINE PHOSPHATASE (test code = 2204) 79 U/L AST (test code = 2218) 28 U/L ALT (test code = 2219) 28 U/L COMPREHENSIVE METABOLIC [id number] 00:00:00* Test Item Value Reference Range Interpretation Comme nts GLUCOSE (test code = 2217) 101 MG/DL BUN (test code = 2208) 18 MG/DL CREATININE (test code = 2214) 0.88 MG/DL eGFR AMER. (test cod e = 97017) 89 ML/MIN/1.73 eGFR NON- AMER. (test code = 79975) 77 ML/MIN/1.73 CALC BUN/CREAT (test code = 2235) 20 RATIO SODIUM (test code = 2231) 139 MEQ/L POTASSIUM (test code = 2228) 3.9 MEQ/L CHLORIDE (test code = 2215) 109 MEQ/L CARBON DIOXIDE (test code = 2206) 18 MEQ/L CALCIUM (test code = 2209) 8.9 MG/DL PROTEIN, TOTAL (test code = 2229) 7.6 G/DL ALBUMIN (test code = 2201) 4.0 G/DL CALC GLOBULIN (test code = 2240) 3.6 G/DL CALC A/G RATIO (test code = 2234) 1.1 RATIO BILIRUBIN, TOTAL (test code = 2207) 0.3 MG/DL ALKALINE PHOSPHATASE (test code = 2204) 79 U/L AST (test code = 2218) 28 U/L ALT (test code = 2219) 28 U/L TSH + FREE T4 [id number] 00:00:00* Test Item Value Reference Range Interpretation Comme nts TSH, THIRD GENERATION (test code = 2821) 1.110 UIU/ML FREE T4 (THYROXINE) (test co de = 2823) 0.83 NG/DL TSH + FREE T4 [id number] 00:00:00* Test Item Value Reference Range Interpretation Comme nts TSH, THIRD GENERATION (test code = 2821) 1.110 UIU/ML FREE T4 (THYROXINE) (test co de = 2823) 0.83 NG/DL TSH + FREE T4 [id number] 00:00:00* Test Item Value Reference Range Interpretation Comme nts TSH, THIRD GENERATION (test code = 2821) 1.110 UIU/ML FREE T4 (THYROXINE) (test co de = 2823) 0.83 NG/DL
[2024-01-14 22:17] LABS: Absolute Lymphocytes (CBC) 2.7 K/uL (0.7-4.9); Hematocrit 33.7 % (36.0-45.0); Lymphocytes % 40.9 % (15.3-44.8); MCV 90.3 fL (80-100); MPV 7.8 fL (7.6-11.3); Platelets 285 thou/uL (152-406); RBC Red Blood Cell Count 3.73 M/uL (3.86-4.86)
[2024-01-14 22:21] LABS: Albumin 3.7 g/dL (3.4-5.0); Bilirubin Direct 0.1 mg/dL (0-0.2); Bilirubin Indirect, Calculated 0.2 mg/dL (0.2-0.8); Bilirubin Total 0.3 mg/dL (0.2-1.0); Potassium 3.7 mEq/L (3.5-5.1); Protein, Total 7.3 g/dL (6.4-8.2)
[2024-01-14 23:27] LABS: Protime INR 1.12
--- NOTE | 2024-01-15 01:58 | ER ---
Nurse's Notes [facility] Name: Elizabeth Garcia Age: 53 yrs Sex: Female : 1970 Arrival Date: 01/14/2024 Time: 20:39 Bed 4 Private MD: Diagnosis: Tension-type headache Presentation: 01/14 20:59 Chief complaint: Patient states: "I've been having headaches and some other symptoms as6 and my doctor has an MRI ordered for me but told me if my symptoms got worse to come to the ER". Coronavirus screen: At this time, the client does not indicate any symptoms associated with coronavirus-19. Ebola Screen: No symptoms or risks identified at this time. Initial Sepsis Screen: Does the patient meet any 2 criteria? No. Patient's initial sepsis screen is negative. Does the patient have a suspected source of infection? No. Patient's initial sepsis screen is negative. Risk Assessment: Do you want to hurt yourself or someone else? Patient reports no desire to harm self or others. Onset of symptoms was January 14, 2024. 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 - Social history:: Smoking status: Patient denies any tobacco usage or history of. - Family history:: not pertinent. Screenin:35 [facility] ED Fall Risk Assessment (Adult) History of falling in the last 3 months, jj7 including since admission No falls in past 3 months (0 pts) Confusion or Disorientation No (0 pts) Intoxicated or Sedated No (0 pts) Impaired Gait No (0 pts) Mobility Assist Device Used No (0 pt) Altered Elimination No (0 pt) Score/Fall Risk Level 0 - 2 = Low Risk Oriented to surroundings, Maintained a safe environment, Educated pt \\T\\ family on fall prevention, incl call for assistance when getting out of bed. Abuse screen: Denies threats or abuse. Abuse screen: Denies threats or abuse. Nutritional screening: No deficits noted. Tuberculosis screening: No symptoms or risk factors identified. Assessment: 21:35 General: Appears in no apparent distress. comfortable, Behavior is calm, cooperative, jj7 appropriate for age. Pain: Complains of pain in face. Neuro: No deficits noted. Reports blurred vision headache frontal area. 23:22 Reassessment: Patient appears in no apparent distress at this time. No changes from vc1 previously documented assessment. Patient and/or family updated on plan of care and expected duration. Pain level reassessed. 01/15 00:18 Reassessment: Patient appears in no apparent distress at this time. No changes from vc1 previously documented assessment. Patient and/or family updated on plan of care and expected duration. Pain level reassessed. 01:39 Reassessment: Patient appears in no apparent distress at this time. Patient and/or vc1 family updated on plan of care and expected duration. Pain level reassessed. Patient is alert, oriented x 3, equal unlabored respirations, skin warm/dry/pink. Patient states symptoms have improved. Vital Signs: 01/14 20:59 BP 159 / 78; Pulse 62; Resp 18; Temp 97.1(TE); Pulse Ox 97% on R/A; Weight 63.5 kg (R); as6 Height 5 ft. 0 in. (R); Pain 5/10; 22:00 BP 123 / 65; Pulse 60; Resp 17; Pulse Ox 96% ; jj7 23:22 BP 135 / 69; Pulse 48; Resp 16; Pulse Ox 97% ; vc1 01/15 00:00 BP 132 / 77; Pulse 56; Resp 17; Pulse Ox 98% ; vc1 01:00 BP 122 / 63; Pulse 47; Resp 17; Pulse Ox 95% ; vc1 02:00 BP 126 / 67; Pulse 56; Resp 17; Pulse Ox 98% ; Pain 0/10; jj7 01/14 20:59 Body Mass Index 27.34 (63.50 kg, 152.4 cm) as6 01/14 20:59 Pain Scale: Adult as6 02:00 Pain Scale: Adult jj7 Campos Coma Score: 01:51 Eye Response: spontaneous(4). Motor Response: obeys commands(6). Verbal Response: sp4 oriented(5). Total: 15. NIH Stroke Scale Scores: 01:51 NIHSS Score: 0 sp4 ED Course: 01/14 20:53 Patient arrived in ED. gm2 21:00 Triage completed. as6 21:01 Arm band placed on. as6 21:03 Carrillo Harrington MD is Attending Physician. sp4 21:35 Patient has correct armband on for positive identification. Bed in low position. Call jj7 light in reach. Warm blanket given. 21:49 Inserted saline lock: 22 gauge in right hand, using aseptic technique. Blood collected. jj7 21:53 Basic Metabolic Panel Sent. jj7 21:53 CBC with Diff Sent. jj7 21:53 LFT's Sent. jj7 21:53 Magnesium Sent. jj7 21:53 NT PRO-BNP Sent. jj7 21:53 PT-INR Sent. jj7 23:49 CT Head Angio In Process Unspecified. EDMS 23:49 CT Neck Angio In Process Unspecified. EDMS 23:49 CT Head Brain wo Cont In Process Unspecified. EDMS 01/15 01:39 No provider procedures requiring assistance completed. vc1 02:05 IV discontinued, intact, bleeding controlled, No redness/swelling at site. Pressure jj7 dressing applied. Administered Medications: 01/14 21:52 Drug: Ketorolac IVP 30 mg IVP once Route: IVP; Site: right hand; [facility] 22:15 Follow up: Response: Marked relief of symptoms jj7 21:52 Drug: NS 0.9% IV 500 ml IV at bolus once Route: IV; Rate: bolus; Site: right hand; jj 23:30 Follow up: IV Status: Completed infusion jj7 21:53 Drug: metoCLOPramide IVP 10 mg IVP once; over 1 to 2 minutes Route: IVP; Site: right [facility] hand; 22:15 Follow up: Response: Marked relief of symptoms jj7 Medication: 21:35 VIS not applicable for this client. jj7 Outcome: 01/15 01:57 Discharge ordered by . sp4 02:05 Discharged to home ambulatory, jj7 02:05 Condition: improved 02:05 Discharge instructions given to patient, Instructed on discharge instructions, medication usage, Demonstrated understanding of instructions, medications, Prescriptions given X 1, 02:06 Patient left the ED. jj7 NIH Stroke Scale - NIH Stroke Score Date: 01/15/2024 Time: 01:51 Total Score = 0 10. Dysarthria (speech clarity - read or repeat words) - 0(Normal) 11. Extinction and Inattention (visual/tactile/auditory/spatial/personal) - 0(No abnormality) 1a. Level of Consciousness (LOC) - 0(Alert) 1b. Level of Consciousness (LOC) (Month \\T\\ Age) - 0(Both) 1c. LOC Commands (Open \\T\\ Closes Eyes/Collar Tailor) - 0(Both) 2. Best Gaze (Lateral Gaze Paresis) - 0(Normal) 3. Visual Field Loss - 0(No visual loss) 4. Facial Palsy - 0(Normal) 5a. Left Arm: Motor (10-second hold) - 0(No drift) 5b. Right Arm: Motor (10-second hold) - 0(No drift) 6a. Left Leg: Motor (5-second hold - always test supine) - 0(No drift) 6b. Right Leg: Motor (5-second hold - always test supine) - 0(No drift) 7. Limb Ataxia (finger/nose \\T\\ heel/benedict - test with eyes open) - 0(Absent) 8. Sensory Loss (pinprick arms/legs/face) - 0(Normal) 9. Best Language: Aphasia (description/naming/reading) - 0(No aphasia) Initials: sp4 Signatures: Dispatcher [employer] Jay James RN RN as6 Cynthia Vlilarreal RN RN vc1 Georgie Parra RN RN jj7 Carrillo Harrington MD MD sp4 Rani Walters 2 Corrections: (The following items were deleted from the chart) 01/14 21:01 21:00 Allergies: Codeine; as6 as6 21: 21:00 Allergies: Morphine; as6 as6 21: 21:00 Allergies: Vicodin; as6 as6
--- NOTE | 2024-01-15 01:58 | EDPHYS ---
Physician Documentation [facility] Name: Elizabeth Garcia Age: 53 yrs Sex: Female : 1970 Arrival Date: 01/14/2024 Time: 20:39 Bed 4 Private MD: ED Physician Carrillo Harrington HPI: 01/14 21:03 This 53 yrs old Female presents to ER via Ambulatory with complaints of sp4 Blurred Vision, Leg Pain, Headache. 21:04 17:02 LMP N/A - Hysterectomy Historical: Allergies: 17:02 Morphine; Vicodin; Codeine; sp4 PMHx: 17:02 Crohn's; Diabetes - NIDDM; Hyperlipidemia; Hypertension; kidney problems; tumor on liver PSHx: hysterectomy; carrie cath-L chest; resection;. 01/15 01:51 51-year-old female with history of Crohn's disease, diabetes, hyperlipidemia, sp4 hypertension, also with history of headache developing 1 week ago. Patient states she went to her primary doctor who has recommended MRI and MRA of the brain. Patient is here because of worsening headache blurred vision and also pain behind her eyes.. Denied any weakness or additional neurologic symptoms.. Historical: - PMHx: 01/14 21:00 Crohn's; Diabetes - NIDDM; Hyperlipidemia; Hypertension; kidney problems; tumor on as6 liver; - PSHx: 21:00 hysterectomy; carrie cath-L chest; resection; as6 - Immunization history:: Adult Immunizations up to date. - Social history:: Smoking status: Patient denies any tobacco usage or history of. - Family history:: not pertinent. ROS: 01/15 01:51 Constitutional: Negative for fever, chills, and weight loss, positive headache, sp4 positive blurry vision, positive pain behind the eyes. All other systems are negative, Exam: 01:51 Constitutional: This is a well developed, well nourished patient who is awake, alert, sp4 and in no acute distress. Head/Face: Normocephalic, atraumatic. Eyes: Pupils equal round and reactive to light, extra-ocular motions intact. Lids and lashes normal. Conjunctiva and sclera are not injected. Cornea within normal limits. Periorbital areas with no swelling, redness, or edema. ENT: Nares patent. No nasal discharge, no septal abnormalities noted. Tympanic membranes are normal and external auditory canals are clear. Oropharynx with no redness, swelling, or masses, exudates, or evidence of obstruction, uvula midline. Mucous membranes moist. Neck: Trachea midline, no thyromegaly or masses palpated, and no cervical lymphadenopathy. Supple, full range of motion without nuchal rigidity, or vertebral point tenderness. Chest/axilla: Normal chest wall appearance and motion. Nontender with no deformity. No lesions are appreciated. Cardiovascular: Regular rate and rhythm with a normal S1 and S2. No gallops, murmurs, or rubs. Normal PMI, no JVD. No pulse deficits. Respiratory: Lungs have equal breath sounds bilaterally, clear to auscultation and percussion. No rales, rhonchi or wheezes noted. No increased work of breathing, no retractions or nasal flaring. Abdomen/GI: Soft, with normal bowel sounds. No distension or tympany. No guarding or rebound. No evidence of tenderness throughout. Back: No spinal tenderness. No costovertebral tenderness. Skin: Warm, dry with normal turgor. Normal color with no rashes, no lesions, and no evidence of cellulitis. MS/ Extremity: Pulses equal, no cyanosis. Neurovascular intact. Full, normal range of motion. Neuro: Awake and alert, GCS 15, oriented to person, place, time, and situation. Cranial nerves II-XII grossly intact. Motor strength 5/5 in all extremities. Sensory grossly intact. Psych: Awake, alert, with orientation to person, place and time. Behavior, mood, and affect are within normal limits Vital Signs: 01/14 20:59 BP 159 / 78; Pulse 62; Resp 18; Temp 97.1(TE); Pulse Ox 97% on R/A; Weight 63.5 kg (R); as6 Height 5 ft. 0 in. (R); Pain 5/10; 22:00 BP 123 / 65; Pulse 60; Resp 17; Pulse Ox 96% ; jj7 23:22 BP 135 / 69; Pulse 48; Resp 16; Pulse Ox 97% ; vc1 01/15 00:00 BP 132 / 77; Pulse 56; Resp 17; Pulse Ox 98% ; vc1 01:00 BP 122 / 63; Pulse 47; Resp 17; Pulse Ox 95% ; vc1 02:00 BP 126 / 67; Pulse 56; Resp 17; Pulse Ox 98% ; Pain 0/10; jj7 01/14 20:59 Body Mass Index 27.34 (63.50 kg, 152.4 cm) as6 01/14 20:59 Pain Scale: Adult as6 02:00 Pain Scale: Adult jj7 NIH Stroke Scale Scores: 01:51 NIHSS Score: 0 sp4 [place] Coma Score: 01:51 Eye Response: spontaneous(4). Motor Response: obeys commands(6). Verbal Response: sp4 oriented(5). Total: 15. MDM: 01/14 21:05 Patient medically screened. sp4 01/15 01:46 ED course: EXAM DESCRIPTION: Head Brain Wo Cont 01/15/2024 12:15 AM PCB DESIGN ENGINEER CLINICAL sp4 HISTORY: 53 years, Female, DIZZINESS COMPARISON: None FINDINGS: Multiple transaxial tomograms of the brain were obtained from the base of the skull to the vertex without contrast. An individualized dose optimization technique, Automated Exposure Control, was utilized for the performed procedure. Brain parenchyma as well as the moses and white matter differentiation demonstrate to be unremarkable. There is no evidence for acute intraparenchymal hemorrhage. There is no midline shift and/or mass effect. No focal areas of hypodensities. Lateral ventricles and cisterns displace normal appearance. No intra or extra axial fluid collections were seen. The calvarium demonstrate to be intact with no evidence for acute bony injuries. The visualized portions of the paranasal sinuses and orbits demonstrate to be clear. IMPRESSION: No acute intracranial hemorrhage. Unremarkable CT scan of the head without contrast. . ED course: CT angio - IMPRESSION: Some of the images are comprised by motion artifact especially along the proximal aspect of cervical carotid there are the mandibular angle limiting diagnostic value. No evidence for stenosis and/or occlusion involving the intracranial vessels/ basilar artery. No evidence for significant stenosis and/or occlusion of the cervical carotid arteries.. ED course: Full report - EXAM DESCRIPTION: Head angio (accession [id number]), Neck Angio (accession [id number]) 01/15/2024 12:11 AM PCB DESIGN ENGINEER CLINICAL HISTORY: 53 years, Female, DIZZINESS COMPARISON: None PROCEDURE: Multiple transaxial tomograms from the aortic arch through the brain were performed after administration of large bolus of IV contrast for complete opacification of the carotid arteries and intracranial vessels. Subsequent 2-D and 3-D multiplanar reformats, volume rendering technique and maximum intensity projection images were generated and reviewed An individualized dose optimization technique, Automated Exposure Control, was utilized for the performed procedure. CAROTID STENOSIS REFERENCE USING NASCET CRITERIA: % ICA stenosis = (1 - narrowest ICA diameter/diameter of distal cervical ICA) x 100. Mild - <50% stenosis. Moderate - 50-69% stenosis. Severe - 70-94% stenosis. Near occlusion - 95-99% stenosis. Occluded - 100% stenosis. FINDINGS: Some of the images are comprised by motion artifact especially along the proximal aspect of cervical carotid there are the mandibular angle limiting diagnostic value. Ascending aorta: There is a normal branching pattern of the great vessels off the arch. There are codominant vertebral arteries which demonstrate normal opacification. No great vessel origin stenosis is identified. Right carotid artery: Normal opacification is demonstrated within the right common carotid artery and at the carotid bifurcation. The carotid bulb demonstrate to be within normal limits. No evidence for stenosis. The proximal, mid and distal portion of the right internal carotid artery demonstrated to be patent. No evidence for stenosis and/or occlusion. Left carotid artery: Normal opacification is demonstrated within the left common carotid artery and at the carotid bifurcation. The carotid bulb demonstrate to be within normal limits. No evidence for stenosis. The proximal, mid and distal portion of the left internal carotid artery demonstrated to be patent. No evidence for stenosis and/or occlusion. Intracranial circulation: Intracranial portions of the internal carotid arteries the cavernous sinus portions demonstrates no focal areas of significant stenosis and/or aneurysm. The anterior cerebral arteries, middle cerebral arteries and its branches demonstrate normal opacification with no evidence for stenosis, occlusion and/or aneurysm. There is normal venous drainage with no evidence for sinus vein thrombosis. Vertebrobasilar system: The posterior circulation demonstrate codominant bilateral vertebral arteries with no evidence for stenosis and/or evidence for significant dissection. The vertebrobasilar system and GREEN JOBS TRAINER demonstrate to be normal with no evidence for aneurysm and/or occlusion. The brain parenchyma demonstrate normal moses-white matter differentiation with no evidence for mass effect and/or midline shift. There is no evidence for abnormal right normal enhancement. The skull base and intracranial structures demonstrate to be within normal limits. Lung apex: No gross abnormalities are noted within the apices.. 01:51 Differential diagnosis: contusion, abrasion, tendonitis, Cluster headache, migraine sp4 headache tension headache. Data reviewed: vital signs, nurses notes, lab test result(s), CBC, electrolytes, hepatic panel, radiologic studies, CT scan. Consideration of Admission/Observation Escalation of care including admission/observation considered. ED course: CT angio basically negative. Patient stable for discharge home. Will advised to obtain outpatient MRI and MRA of the brain... . 01/14 21:05 Order name: Basic Metabolic Panel; Complete Time: 01:48 sp4 01/14 21:05 Order name: CBC with Diff; Complete Time: :48 sp4 01/14 21:05 Order name: LFT's; Complete Time: :48 sp4 01/14 21:05 Order name: Magnesium; Complete Time: :48 sp4 01/14 21:05 Order name: NT PRO-BNP; Complete Time: :48 sp4 01/14 21:05 Order name: PT-INR; Complete Time: :48 sp4 01/15 00:10 Order name: Glucose, Ancillary Testing; Complete Time: :48 EDMS 01/14 21:13 Order name: CT Head Angio sp4 01/14 21:13 Order name: CT Neck Angio sp4 01/14 22:43 Order name: CT Head Brain wo Cont sp4 01/14 21:05 Order name: IV Saline Lock; Complete Time: 21:53 sp4 01/14 21:05 Order name: Labs collected and sent; Complete Time: 21:53 sp4 01/14 21:05 Order name: O2 Per Protocol; Complete Time: 21:53 sp4 01/14 21:05 Order name: O2 Sat Monitoring; Complete Time: 21:53 sp4 Administered Medications: 01/14 21:52 Drug: Ketorolac IVP 30 mg IVP once Route: IVP; Site: right hand; jj7 22:15 Follow up: Response: Marked relief of symptoms jj7 21:52 Drug: NS 0.9% IV 500 ml IV at bolus once Route: IV; Rate: bolus; Site: right hand; jj7 23:30 Follow up: IV Status: Completed infusion jj7 21:53 Drug: metoCLOPramide IVP 10 mg IVP once; over 1 to 2 minutes Route: IVP; Site: right [facility] hand; 22:15 Follow up: Response: Marked relief of symptoms jj7 Disposition Summary: 01/15/24 01:57 Discharge Ordered Notes: Location: Home sp4 Problem: new sp4 Condition: Stable sp4 Diagnosis - Tension-type headache sp4 Followup: sp4 - With: Private Physician - When: 7 - 10 days - Reason: Recheck today's complaints Discharge Instructions: - Discharge Summary Sheet sp4 - General Headache Without Cause, [id number] sp4 Forms: - Patient Portal Instructions sp4 Prescriptions: - Fioricet 50-300-40 mg Oral capsule - take 1 capsule ORAL route every 8 hours PRN headache; 30 capsule; Refills: 0, sp4 Product Selection Permitted NIH Stroke Scale - NIH Stroke Score Date: 01/15/2024 Time: 01:51 Total Score = 0 10. Dysarthria (speech clarity - read or repeat words) - 0(Normal) 11. Extinction and Inattention (visual/tactile/auditory/spatial/personal) - 0(No abnormality) 1a. Level of Consciousness (LOC) - 0(Alert) 1b. Level of Consciousness (LOC) (Month \T\ Age) - 0(Both) 1c. LOC Commands (Open \T\ Closes Eyes/Investigator Internal Revenue) - 0(Both) 2. Best Gaze (Lateral Gaze Paresis) - 0(Normal) 3. Visual Field Loss - 0(No visual loss) 4. Facial Palsy - 0(Normal) 5a. Left Arm: Motor (10-second hold) - 0(No drift) 5b. Right Arm: Motor (10-second hold) - 0(No drift) 6a. Left Leg: Motor (5-second hold - always test supine) - 0(No drift) 6b. Right Leg: Motor (5-second hold - always test supine) - 0(No drift) 7. Limb Ataxia (finger/nose \T\ heel/benedict - test with eyes open) - 0(Absent) 8. Sensory Loss (pinprick arms/legs/face) - 0(Normal) 9. Best Language: Aphasia (description/naming/reading) - 0(No aphasia) Initials: sp4 Signatures: Dispatcher [employer] Jay James RN RN as6 Georgie Parra RN RN jj7 Carrillo Harrington MD MD sp4 Corrections: (The following items were deleted from the chart) 21:01 21: Allergies: Codeine; as6 as6 : Allergies: Morphine; as6 as6 : Allergies: Vicodin; as6 as6
[2024-01-15 02:24] VITALS: BP 126/67; TEMP 97.1; O2SAT 98
--- NOTE | 2024-01-15 12:34 | RAD REPORT ---
EXAM DESCRIPTION: CT - Neck Angio - 01/15/2024 6:50 am CLINICAL HISTORY: 53 years, Female, DIZZINESS COMPARISON: None TECHNIQUE: Multiple transaxial tomograms from the aortic arch through the brain were performed after administration of large bolus of IV contrast for complete opacification of the carotid arteries and intracranial vessels. Subsequent 2-D and 3-D multiplanar reformats, volume rendering technique and maximum intensity projec tion images were generated and reviewed An individualized dose optimization technique, Automated Exposure Control, was utilized for the perfo rmed procedure. CAROTID STENOSIS REFERENCE USING NASCET CRITERIA: % ICA stenosis = (1 - narrowest ICA diameter/diamet er of distal cervical ICA) x 100. Mild - <50% stenosis. Moderate - 50-69% stenosis. Severe - 70-94% stenosis. Near occlusion - 95-99% stenosis. Occluded - 100% stenosis. FINDINGS: Some of the images are comprised by motion artifact especially along the proximal aspect o f cervical carotid there are the mandibular angle limiting diagnostic value. Ascending aorta: There is a normal branching pattern of the great vessels off the arch. There are codominant vertebral arteries which demonstrate normal opacification. No great vessel origin steno sis is identified. Right carotid artery: Normal opacification is demonstrated within the right common carotid artery and at the carotid bifurcation. The carotid bulb demonstrate to be within normal limits. No evidence for stenosis. The proximal, mid and distal portion of the right internal carotid artery demonstrated to be patent. No evidence for stenosis and/or occlusion. Left carotid artery: Normal opacification is demonstrated within the left common carotid artery and at the carotid bifurcation. The carotid bulb demonstrate to be within normal limits. No evidence for stenosis. The proximal, mid and distal portion of the left internal carotid artery demonstrated to b e patent. No evidence for stenosis and/or occlusion. Intracranial circulation: Intracranial portions of the internal carotid arteries the cavernous sinus portions demonstrates no focal areas of significant stenosis and/or aneurysm. The anterior cerebral a rteries, middle cerebral arteries and its branches demonstrate normal opacification with no evidence for stenosis, occlusion and/or aneurysm. There is normal venous drainage with no evidence for sinus v ein thrombosis. Vertebrobasilar system: The posterior circulation demonstrate codominant bilateral vertebral arteries with no evidence for stenosis and/or evidence for significant dissection. The vertebrobasilar system and MANAGER SUPPLY CHAIN PLANNING demonstrate to be normal with no evidence for aneurysm and/or occlusion. The brain parenchyma demonstrate normal moses-white matter differentiation with no evidence for mass e ffect and/or midline shift. There is no evidence for abnormal right normal enhancement. The skull base and intracranial structures demonstrate to be within normal limits. Lung apex: No gross abnormalities are noted within the apices. IMPRESSION: Some of the images are comprised by motion artifact especially along the proximal aspect of cervical carotid there are the mandibular angle limiting diagnostic value. No evidence for stenosis and/or occlusion involving the intracranial vessels/ basilar artery. No evidence for significant stenosis and/or occlusion of the cervical carotid arteries. Electronically signed by: Johnny Butler MD 01/15/2024 12:15 AM SHRINKING MACHINE OPERATOR Due to temporary technical issues with the PACS/Fluency reporting system, reports are being signed by the in house radiologist without review as a courtesy to ensure prompt reporting. The interpreting r adiologist is fully responsible for the content of the report.
--- NOTE | 2024-01-15 12:37 | RAD REPORT ---
EXAM DESCRIPTION: CT - Head Brain Wo Cont - 01/15/2024 6:50 am CLINICAL HISTORY: 53 years, Female, DIZZINESS COMPARISON: None FINDINGS: Multiple transaxial tomograms of the brain were obtained from the base of the skull to the vertex without contrast. An individualized dose optimization technique, Automated Exposure Control, was utilized for the perfo rmed procedure. Brain parenchyma as well as the moses and white matter differentiation demonstrate to be unremarkable. There is no evidence for acute intraparenchymal hemorrhage. There is no midline shift and/or mass ef fect. No focal areas of hypodensities. Lateral ventricles and cisterns displace normal appearance. No intra or extra axial fluid collections were seen. The calvarium demonstrate to be intact with no evidence for acute bony injuries. The visualized portions of the paranasal sinuses and orbits demons trate to be clear. IMPRESSION: No acute intracranial hemorrhage. Unremarkable CT scan of the head without contrast. Electronically signed by: Johnny Butler MD 01/15/2024 12:16 AM DOUGH CUTTER Due to temporary technical issues with the PACS/Fluency reporting system, reports are being signed by the in house radiologist without review as a courtesy to ensure prompt reporting. The interpreting r adiologist is fully responsible for the content of the report.
--- NOTE | 2024-01-15 14:06 | RAD REPORT ---
EXAM DESCRIPTION: CT - Head angio - 01/15/2024 6:50 am CLINICAL HISTORY: 53 years, Female, DIZZINESS COMPARISON: None TECHNIQUE: Multiple transaxial tomograms from the aortic arch through the brain were performed after administration of large bolus of IV contrast for complete opacification of the carotid arteries and intracranial vessels. Subsequent 2-D and 3-D multiplanar reformats, volume rendering technique and maximum intensity projec tion images were generated and reviewed An individualized dose optimization technique, Automated Exposure Control, was utilized for the perfo rmed procedure. CAROTID STENOSIS REFERENCE USING NASCET CRITERIA: % ICA stenosis = (1 - narrowest ICA diameter/diamet er of distal cervical ICA) x 100. Mild - <50% stenosis. Moderate - 50-69% stenosis. Severe - 70-94% stenosis. Near occlusion - 95-99% stenosis. Occluded - 100% stenosis. FINDINGS: Some of the images are comprised by motion artifact especially along the proximal aspect o f cervical carotid there are the mandibular angle limiting diagnostic value. Ascending aorta: There is a normal branching pattern of the great vessels off the arch. There are codominant vertebral arteries which demonstrate normal opacification. No great vessel origin steno sis is identified. Right carotid artery: Normal opacification is demonstrated within the right common carotid artery and at the carotid bifurcation. The carotid bulb demonstrate to be within normal limits. No evidence for stenosis. The proximal, mid and distal portion of the right internal carotid artery demonstrated to be patent. No evidence for stenosis and/or occlusion. Left carotid artery: Normal opacification is demonstrated within the left common carotid artery and at the carotid bifurcation. The carotid bulb demonstrate to be within normal limits. No evidence for stenosis. The proximal, mid and distal portion of the left internal carotid artery demonstrated to b e patent. No evidence for stenosis and/or occlusion. Intracranial circulation: Intracranial portions of the internal carotid arteries the cavernous sinus portions demonstrates no focal areas of significant stenosis and/or aneurysm. The anterior cerebral a rteries, middle cerebral arteries and its branches demonstrate normal opacification with no evidence for stenosis, occlusion and/or aneurysm. There is normal venous drainage with no evidence for sinus v ein thrombosis. Vertebrobasilar system: The posterior circulation demonstrate codominant bilateral vertebral arteries with no evidence for stenosis and/or evidence for significant dissection. The vertebrobasilar system and HEALTH AND WELLNESS INSTRUCTOR demonstrate to be normal with no evidence for aneurysm and/or occlusion. The brain parenchyma demonstrate normal moses-white matter differentiation with no evidence for mass e ffect and/or midline shift. There is no evidence for abnormal right normal enhancement. The skull base and intracranial structures demonstrate to be within normal limits. Lung apex: No gross abnormalities are noted within the apices. IMPRESSION: Some of the images are comprised by motion artifact especially along the proximal aspect of cervical carotid there are the mandibular angle limiting diagnostic value. No evidence for stenosis and/or occlusion involving the intracranial vessels/ basilar artery. No evidence for significant stenosis and/or occlusion of the cervical carotid arteries. Electronically signed by: Johnny Butler MD 01/15/2024 12:15 AM TAXATION AGENT Due to temporary technical issues with the PACS/Fluency reporting system, reports are being signed by the in house radiologist without review as a courtesy to ensure prompt reporting. The interpreting r adiologist is fully responsible for the content of the report.
== END ==
LOC: ER 20:39
DX: G44.209 Tension-type headache, unspecified, not intractable (principal); I10 Essential (primary) hypertension; E11.9 Type 2 diabetes mellitus without complications
CPT/HCPCS: 85025; 80048; 36415; 83735; 85610; 80076; 83880; 70450; 70496; 70498; Q9967; J2765; J7040; 82947

== ENCOUNTER 2024-06-26 01:05 | Emergency (ER) | payer OTHER ==
--- OUTSIDE RECORDS SUMMARY | 2024-06-26 01:15 | XMS REPORT | Continuity of Care Document ---
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 MG 2- 00:00: 00 03-24 00:00 :00 Ashley Mendoza TAKE ONE (1) CAPSULE(S) BY MOUTH FOUR TIMES A DAY NEEDED. 2- 00:00: 00 03-24 00:00 :00 No Alexx Janny Mendoza AMOXICILLIN 500 MG 2-18 00:00: 00 03-24 00:00 :00 No Alexx Janny Mendoza STELARA 90 MG/ML SOSY 2-16 00:00: 00 03-24 00:00 :00 No Alexx Janny Reji NALTREXONE HCL 50 MG TABS 2-15 00:00: 00 03-24 00:00 :00 No Alexx Janny Reji TAMSULOSIN HYDROCHLORI DE 0.4 MG 2-07 00:00: 00 03-24 00:00 :00 No Alexx Janny Reji TAKE 1 TABLET BY MOUTH TWICE A DAY NEEDED - 00:00: 00 03-24 00:00 :00 No Alexx Mendoza ONDANSETRON ODT 4 MG TBDP 2- 00:00: 00 03-24 00:00 :00 No Alexx Mendoza NEOMYCIN/PO LYMYXIN/DEX AMETHASONE 3.5-47254-3 .1 OINT 2-06 00:00: 00 03-24 00:00 :00 No Alexx Mendoza AMLODIPINE BESYLATE 2.5 MG TABS 1-02 00:00: 00 03-24 00:00 :00 No Alexx Mendoza HYDROCHLORO THIAZIDE 12.5 MG 1-02 00:00: 00 03-24 00:00 :00 No Alexx Mendoza AZITHROMYCI N 500 MG TABS 2021-11 2-27 00:00: 00 03-24 00:00 :00 No Alexx Mendoza PREDNISONE 10 MG TABS 2021-11 2-27 00:00: 00 03-24 00:00 :00 No Alexx Mendoza NALTREXONE HCL 50 MG TABS 2021-11 2-24 00:00: 00 03-24 00:00 :00 No 50 Alexx Janny Reji BACLOFEN 10 MG TABS 2021-11 2-21 00:00: 00 03-24 00:00 :00 No Alexx Mendoza MONTELUKAST SODIUM 10 MG TABS 2021-11- 00:00: 00 03-24 00:00 :00 Ashley Mendoza SIMVASTATIN 20 MG TABS 2021-11 00:00: 00 03-24 00:00 :00 No Alexx Mendoza TOPIRAMATE 100 MG TABS 2021-11 00:00: 00 03-24 00:00 :00 No 100 Alexx Mendoza BUPROPION HYDROCHLORI DE ER (SR) 150 MG TB12 2021-11 00:00: 00 03-24 00:00 :00 No Alexx Janny Mendoza AMOXICILLIN /CLAVULANAT E POTASSIUM 500-125 MG TABS 2021-11 00:00: 00 03-24 00:00 :00 Ashley Ortizhen Janny Mendoza HYDROXYZINE PAMOATE 25 MG 2021-11 00:00: 00 03-24 00:00 :00 No 25 Laexx Janny Mendoza RISPERIDONE 3 MG TABS 2021-11 00:00: 00 03-24 00:00 :00 No Alexx Janny Mendoza FLUOXETINE HYDROCHLORI DE 20 MG 2021-11 00:00: 00 03-24 00:00 :00 No 20 Alexx Janny Mendoza BACLOFEN 10 MG TABS 2021-11 00:00: 00 03-24 00:00 :00 No 10 Alexx Janny Reji STELARA 90 MG/ML SOSY 2021-11 00:00: 00 03-24 00:00 :00 Ashley Coffey Janny Reji POLYMYXIN B SULFATE/TRI METHOPRIM GUNN LFATE 80486-8.1 UNIT/ML-% SOLN 2021-11 00:00: 00 03-24 00:00 :00 Ashley Coffey Janny Reji PLENVU 140 GM SOLR 2021-1118 00:00: 00 03-24 00:00 :00 Ashley Mendoza TAKE 1 TABLET BY MOUTH EVERY DAY 08-07 00:00: 00 03-24 00:00 :00 Ashley Mendoza LAGEVRIO 200 MG 08-07 00:00: 00 03-24 00:00 :00 Ashley Mendoza BROMPHEN/PS EUDOEPHEDRI NE HCL/DEXTRO METHORPHAN HBR 30-2-10 MG/5ML SYRP -20 00:00: 00 03-24 00:00 :00 No Alexx Mendoza FLUTICASONE PROPIONATE 50 MCG/ACT SUSP 9-19 00:00: 00 03-24 00:00 :00 No Alexx Mendoza NALTREXONE HCL 50 MG TABS - 00:00: 00 03-24 00:00 :00 No Alexx Mendoza FLUOXETINE HYDROCHLORI DE 20 MG -06 00:00: 00 03-24 00:00 :00 No Alexx Mendoza ONDANSETRON HYDROCHLORI DE 4 MG TABS -06 00:00: 00 03-24 00:00 :00 Ashley Mendoza OMEPRAZOLE 40 MG CPDR -06 00:00: 00 03-24 00:00 :00 No Alexx Mendoza HYDROXYZINE PAMOATE 25 MG -06 00:00: 00 03-24 00:00 :00 Ashley Mendoza DICYCLOMINE HYDROCHLORI DE 10 MG -06 00:00: 00 03-24 00:00 :00 Ashley Mendoza BUPROPION HYDROCHLORI DE ER (SR) 150 MG TB12 -06 00:00: 00 03-24 00:00 :00 Ashley Mendoza STELARA 90 MG/ML SOSY 9-02 00:00: 00 03-24 00:00 :00 Ashley Mendoza CIPROFLOXAC IN HYDROCHLORI DE 500 MG TABS 0 8-31 00:00: 00 No CIPROFLOXAC IN HYDROCHLORI DE 500 MG TABS 0 8-31 00:00: 00 No 500 CIPROFLOXAC IN HYDROCHLORI DE 500 MG TABS 0 8-31 00:00: 00 No CIPROFLOXAC IN HYDROCHLORI DE 500 MG TABS 0 8-31 00:00: 00 No CIPROFLOXAC IN HYDROCHLORI DE 500 MG TABS 07-18 00:00: 00 Yes Alexx Mendoza POLYMYXIN B SULFATE/TRI METHOPRIM GUNN LFATE 74746-0.1 UNIT/ML-% SOLN 07-18 00:00: 00 03-24 00:00 :00 No Alexx Mendoza NYSTATIN [id number] UNIT/GM CREA 07-18 00:00: 00 03-24 00:00 :00 No Alexx Mendoza CLOBETASOL PROPIONATE 0.05 % SHAM 07-18 00:00: 00 03-24 00:00 :00 No Alexx Mendoza buPROPion SR 150 mg SR tablet 07-04 00:00: 00 Yes [facility] meloxicam 15 mg tablet 07-04 00:00: 00 Yes [facility] &lt 2022-0 8- 00:00: 00 No 4 [...] 00 No &lt 2022-0 8- 00:00: 00 Yes 4 Alexx oSliman Reji &lt 2022-0 8- 00:00: 00 Yes 20 Alexx Soliman Reji &lt 2022-0 8- 00:00: 00 Yes Alexx Soliman Reji AMOXICILLIN 500 MG 0 - 00:00: 00 03-24 00:00 :00 No Alexx Janny Reji TAMSULOSIN HYDROCHLORI DE 0.4 MG 2-0 7- 00:00: 00 03-24 00:00 :00 No Alexx Mendoza CIPROFLOXAC IN HYDROCHLORI DE 500 MG TABS 2021-0 7- 00:00: 00 03-24 00:00 :00 No Alexx Soliman Reji &lt 2022-0 7- 00:00: 00 No &lt 2022-0 7-12 00:00: 00 No &lt 2022-0 7-12 00:00: 00 No &lt 2022-0 7-12 00:00: 00 No &lt 2022-0 7-12 00:00: 00 Yes Alexx Soliman Reji &lt 2022-0 7- 00:00: 00 No 3 &lt 2022-0 7-07 00:00: 00 No &lt 2022-0 7-07 00:00: 00 No 3 &lt 2022-0 7-07 00:00: 00 No &lt 2022-0 7-07 00:00: 00 No 3 &lt 2022-0 7-07 00:00: 00 No &lt 2022-0 7-07 00:00: 00 No 3 &lt 2022-0 7-07 00:00: 00 No &lt 2022-0 7-07 00:00: 00 Yes 3 Alexx Soliman Reji &lt 2022-0 7-07 00:00: 00 Yes Alexx Mendoza &lt 2022-0 6-27 00:00: 00 No &lt 2022-0 6-27 00:00: 00 No &lt 2022-0 6-27 00:00: 00 No &lt 2022-0 6-27 00:00: 00 No &lt 2022-0 6-27 00:00: 00 Yes Alexx Mendoza ADVAIR DISKUS 250-50 MCG/ACT AEPB 2-0 6-27 00:00: 00 03-24 00:00 :00 No Alexx Mendoza COMBIVENT RESPIMAT 20-100 MCG/ACT AERS 2-0 6-27 00:00: 00 03-24 00:00 :00 No Alexx Mendoza CIPROFLOXAC IN HYDROCHLORI DE 500 MG TABS 2021-0 6-20 00:00: 00 03-24 00:00 :00 No Alexx Mendoza GABAPENTIN 100 MG 2021-0 05-01 00:00: 00 03-24 00:00 :00 No Alexx Mendoza &lt 2022-0 04-25 00:00: 00 No &lt 2022-0 04-25 00:00: 00 No &lt 2022-0 04-25 00:00: 00 No &lt 2022-0 04-25 00:00: 00 No &lt 2022-0 04-25 00:00: 00 No &lt 2022-0 04-25 00:00: 00 No &lt 2022-0 04-25 00:00: 00 No &lt 2022-0 04-25 00:00: 00 No &lt 2022-0 04-25 00:00: 00 Yes Alexx Mendoza &lt 2022-0 04-25 00:00: 00 Yes Alexx Mendoza &lt 2-0 04-24 00:00: 00 No &lt 2022-0 04-24 00:00: 00 No &lt 2022-0 04-24 00:00: 00 No &lt 2022-0 04-24 00:00: 00 No &lt 2022-0 04-24 00:00: 00 No &lt 2022-0 04-24 00:00: 00 No &lt 2022-0 04-24 00:00: 00 No &lt 2022-0 04-24 00:00: 00 No &lt 2022-0 04-24 00:00: 00 Yes Alexx Mendoza &lt 2-0 04-24 00:00: 00 Yes Alexx Soliman Reji BUPROPION HYDROCHLORI DE ER (SR) 150 MG TB12 04-24 00:00: 00 03-24 00:00 :00 No Alexx Soliman Reji TOPIRAMATE 100 MG TABS 04-24 00:00: 00 03-24 00:00 :00 No Alexx Soliman Reji HYDROXYZINE PAMOATE 25 MG 0 04-24 00:00: 00 03-24 00:00 :00 No Alxex Janny Reji phentermine 15 mg capsule 04-19 00:00: 00 Yes 1{capsu le} Take 1 capsule by mouth every morning. [facility] LOTEMAX 0.5 % SUSP 04-17 00:00: 00 03-24 00:00 :00 No Alexx Mendoza FLUOCINOLON E ACETONIDE 0.01 % OIL 04-11 00:00: 00 03-24 00:00 :00 No Alexx Mendoza neomycin-po lymyxin-dex amethasone 3.5 mg/g-10,000 unit/g-0.1 % ophthalmic ointment 03-26 00:00: 00 Yes [facility] NEOMYCIN/PO LYMYXIN/DEX AMETHASONE 3.5-43829-3 .1 SUSP 03-26 00:00: 00 03-24 00:00 :00 No Alexx Mendoza dicyclomine 10 mg capsule 03-24 00:00: 00 Yes [facility] metformin ER 500 mg 24 hr tablet 03-23 00:00: 00 Yes [facility] DICYCLOMINE HYDROCHLORI DE 10 MG 03-23 00:00: 00 03-24 00:00 :00 No Alexx Mendoza OMEPRAZOLE 40 MG CPDR 03-23 00:00: 00 03-24 00:00 :00 No Alexx Mendoza ONDANSETRON ODT 4 MG TBDP 03-23 00:00: 00 03-24 00:00 :00 No Alexx Mendoza STELARA 90 mg/mL SC injection 03-21 00:00: 00 Yes [facility] STELARA 90 MG/ML SOSY 03-06 00:00: 00 03-24 00:00 :00 No Alexx Mendoza NALTREXONE HCL 50 MG TABS 02-22 00:00: 00 03-24 00:00 :00 No Alexx Mendoza simvastatin 20 mg tablet - 00:00: 00 No 1mg meloxicam 15 mg tablet 02-19 00:00: 00 No 1mg metformin ER 500 mg tablet,exte nded release 24 hr 0 4- 00:00: 00 No 1mg simvastatin 20 mg tablet 0 4- 00:00: 00 No 1mg meloxicam 15 mg tablet 0 4- 00:00: 00 No 1mg metformin ER 500 mg tablet,exte nded release 24 hr 0 4- 00:00: 00 No 1mg simvastatin 20 mg tablet 0 4- 00:00: 00 No 1mg meloxicam 15 mg tablet 0 4- 00:00: 00 No 1mg metformin ER 500 mg tablet,exte nded release 24 hr 0 4- 00:00: 00 No 1mg simvastatin 20 mg tablet 4- 00:00: 00 No 1mg meloxicam 15 mg tablet 4- 00:00: 00 No 1mg metformin ER 500 mg tablet,exte nded release 24 hr 4- 00:00: 00 No 1mg simvastatin 20 mg tablet 4- 00:00: 00 Yes 1mg Alexx Soliman Reji meloxicam 15 mg tablet 4- 00:00: 00 Yes 1mg Alexx Janny Mendoza metformin ER 500 mg tablet,exte nded release 24 hr - 00:00: 00 Yes 1mg Alexx Mendoza HYDROXYZINE PAMOATE 25 MG 3-15 00:00: 00 03-24 00:00 :00 No Alexx Janny Reji TOPIRAMATE 100 MG TABS 3-15 00:00: 00 03-24 00:00 :00 No Alexx Janny Reji RISPERIDONE 3 MG TABS 3-15 00:00: 00 03-24 00:00 :00 No Alexx Mendoza Dose Unknown 3-09 00:00: 00 No Dose Unknown 0 3-09 00:00: 00 No Dose Unknown 0 3-09 00:00: 00 No Dose Unknown 0 3- 00:00: 00 No Dose Unknown 0 3-09 00:00: 00 No Dose Unknown 0 3- 00:00: 00 No Dose Unknown 2022-0 3-09 [...] No Dose Unknown 2022-0 3-09 00:00: 00 Yes Alexx F Reji Dose Unknown 2022-0 3-09 00:00: 00 Yes Alexx F Reji Dose Unknown 2022-0 3-09 00:00: 00 Yes Alexx F Reji Dose Unknown 2022-0 3-09 00:00: 00 Yes Alexx F Reji Dose Unknown 2022-0 3-09 00:00: 00 Yes Alexx F Reji Dose Unknown 2022-0 3-09 00:00: 00 Yes Alexx F Reji Dose Unknown 2022-0 3-09 00:00: 00 Yes Alexx F Reji Dose Unknown 2022-0 3-09 00:00: 00 Yes Alexx F Reji Dose Unknown 2022-0 3-09 00:00: 00 Yes Alexx F Reji Dose Unknown 2022-0 3-09 00:00: 00 Yes Alexx F Reji Dose Unknown 2022-0 3-09 00:00: 00 Yes Alexx F Reji Dose Unknown 2022-0 3-09 00:00: 00 Yes Alexx F Reji Dose Unknown 2022-0 3-09 00:00: 00 Yes Alexx F Reji OMEPRAZOLE 40 MG CPDR 2022-0 2-23 00:00: 00 202- 05-07 00:00 :00 No Alexx Janny Mendoza tiotropium 18 mcg inhalation 2022-0 1-13 00:00: 00 Yes [id number] 18ug Inhale 1 capsule daily. [facility] albuterol 90 mcg/actuati on inhaler 11-30 00:00: 00 Yes [id number] 2{puff} Inhale 2 Puffs every 6 (six) hours as needed for Wheezing or Shortness of Breath. [facility] simvastatin 20 mg tablet 2020-11 00:00: 00 No 1mg simvastatin 20 mg tablet 2020-11 00:00: 00 No 1mg simvastatin 20 mg tablet 2020-11 00:00: 00 No 1mg simvastatin 20 mg tablet 2020-11 00:00: 00 No 1mg simvastatin 20 mg tablet 2020-11 00:00: 00 Yes 1mg Alexx Mendoza meloxicam 15 mg tablet 2020-11 0 00:00: [...] 15 mg tablet 2020-11 0 00:00: 00 Yes 1mg Alexx Mendoza metformin ER 500 mg tablet,exte nded release 24 hr 2020-11 0 00:00: 00 Yes 1mg Alexx Mendoza MELOXICAM ORAL 2020-11 0 13:28: 42 Yes Take by mouth. [facility] Halobetasol Propionate 0.05 % ointment 08-10 00:00: 00 Yes [id number] Apply to area(s) 2 (two) times daily. [facility] clobetasoL 0.05 % external solution 9-23 00:00: 00 Yes [id number] Apply to area(s) 2 (two) times daily. For scalp [facility] hydrocortis one 2.5 % topical cream 8 00:00: 00 No 1% hydrocortis one 2.5 % topical cream 8 00:00: 00 No 1% hydrocortis one 2.5 % topical cream 8 00:00: 00 No 1% hydrocortis one 2.5 % topical cream 8 00:00: 00 No 1% hydrocortis one 2.5 % topical cream 07-12 00:00: 00 Yes 1% Alexx F Reji clobetasoL 0.05 % cream 05-18 00:00: 00 Yes [id number] Apply to area(s) 2 (two) times daily. Apply to scalp, ears and buttocks (avoid creases) [facility] ketoconazol e 2 % cream 05-18 00:00: 00 Yes [id number] Apply to area(s) 2 (two) times daily. Apply to creases with tacrolimus (Protopic) [facility] hydrOXYzine 25 mg tablet 05-18 00:00: 00 Yes [id number] 25mg Take 1 tablet by mouth at bedtime as needed for Itching. [facility] ciprofloxac in-dexameth asone 0.3-0.1 % otic drops 04-15 00:00: 00 Yes [id number] 2[drp] Place 2 Drops in both ears 2 (two) times daily. [facility] ondansetron 4 mg disintegrat ing tablet -19 00:00: 00 Yes [facility] omeprazole 40 mg capsule 5-17 00:00: 00 Yes [facility] hydroxyzine pamoate 25 mg capsule - 00:00: 00 No 1mg hydroxyzine pamoate 25 mg capsule 03-13 00:00: 00 No 1mg hydroxyzine pamoate 25 mg capsule 03-13 00:00: 00 No 1mg hydroxyzine pamoate 25 mg capsule 03-13 00:00: 00 No 1mg hydroxyzine pamoate 25 mg capsule 03-13 00:00: 00 Yes 1mg Alexx Mendoza metformin ER 500 mg tablet,exte nded release [...] nded release 24 hr 03-09 00:00: 00 Yes 1mg Alexx Mendoza epinephrine 0.3 mg/0.3 mL injection syringe 03-08 [...] mg/0.3 mL injection syringe 03-08 00:00: 00 Yes 1mg/0.3 mL Alexx Mendoza meloxicam 15 mg tablet 03-08 00:00: 00 Yes 1mg Alexx Mendoza amlodipine 5 mg tablet 03-08 00:00: 00 Yes 1mg Alexx Mendoza simvastatin 20 mg tablet 03-08 00:00: 00 Yes 1mg Alexx Mendoza metformin 500 mg tablet 03-08 00:00: 00 Yes 1mg Alexx Mendoza epinephrine 0.3 mg/0.3 mL injection syringe 02-07 00:00: 00 No 1(1.5 mL) epinephrine 0.3 mg/0.3 mL injection syringe 02-07 00:00: 00 No 1(1.5 mL) epinephrine 0.3 mg/0.3 mL injection syringe 02-07 00:00: 00 No 1(1.5 mL) epinephrine 0.3 mg/0.3 mL injection syringe 02-07 00:00: 00 No 1(1.5 mL) epinephrine 0.3 mg/0.3 mL injection syringe 02-07 00:00: 00 Yes 1(1.5 mL) Alexx Mendoza hydrocortis one 2.5 % cream 1 00:00: 00 Yes Apply to affected area(s) 2 (two) times daily. [facility] erythromyci n 5 mg/gram (0.5 %) ophthalmic ointment 11-24 00:00: 00 Yes Apply to right eye every 6 (six) hours [facility] doxycycline monohydrate 100 mg tablet 06-22 00:00: [...] on HFA aerosol inhaler 06-22 00:00: 00 Yes 1mcg/ac tuation Alexx Mendoza risperidone 3 mg tablet 06-22 00:00: 00 Yes 1mg Alexx Mendoza Prilosec OTC 20 mg tablet,wesley yed release 06-22 00:00: 00 Yes 1mg Alexx Mendoza Norvasc 5 mg tablet 06-22 00:00: 00 Yes 1mg Alexx Mendoza meloxicam 15 mg tablet 06-22 00:00: 00 Yes 1mg Alexx Mendoza Singulair 10 mg tablet 06-22 00:00: 00 Yes 1mg Alexx Mendoza doxycycline monohydrate 100 mg tablet 06-22 00:00: 00 Yes 1mg Alexx Mendoza Wellbutrin SR 100 mg tablet, 12 hr sustained-r elease 06-22 00:00: 00 Yes 1mg Alexx Mendoza Topamax 100 mg tablet 06-22 00:00: 00 Yes 1mg Alexx Mendoza hydroxyzine HCl 25 mg tablet 06-22 00:00: 00 Yes 1mg Alexx Mendoza hydroxyzine HCl 50 mg tablet 06-22 00:00: 00 Yes 1mg Alexx Mendoza doxepin 25 mg capsule 06-22 00:00: 00 Yes 1mg Alexx Mendoza Prozac 20 mg capsule 06-22 00:00: 00 Yes 3mg Alexx Mendoza Pentasa 500 mg capsule,con trolled release 06-22 00:00: 00 Yes 2mg Alexx Mendoza gabapentin 100 mg capsule 06-22 00:00: 00 Yes 1mg Alexx Mendoza fluocinonid e 0.05 % topical solution 06-22 00:00: 00 Yes 1% Alexx Mendoza nystatin-tr iamcinolone cream 0 6-17 00:00: 00 Yes [id number] Apply to area(s) 2 (two) times daily. [facility] mometasone 0.1 % lotion 0 617 00:00: 00 Yes [id number] Apply to area(s) 2 (two) times daily. [facility] mometasone 0.1 % lotion 4-06 00:00: 00 Yes [id number] Apply to area(s) daily. [facility] ciprofloxac in-dexameth asone 0.3-0.1 % otic drops 2-26 00:00: 00 Yes [id number] 2[drp] Place 2 Drops in both ears 2 (two) times daily. [facility] Clobetasol Propionate 0.05 % shampoo 12 00:00: 00 Yes [id number] Apply to area(s) 2 (two) times daily. [facility] Fluocinolon e Acetonide Oil (DERMOTIC OIL) 0.01 % otic drops 12 00:00: 00 Yes [id number] 1[drp] Place 1 Drop in each ear 2 (two) times daily. [facility] SINGULAIR ORAL 2018-11 12:18: 35 Yes None Entered [facility] FLUoxetine (PROZAC) 20 mg capsule 2018-11 12:18: 35 Yes 60mg Take 60 mg by mouth daily. [facility] topiramate (TOPAMAX) 50 mg tablet 2018-11 12:18: 35 Yes 50mg Take 50 mg by mouth 2 (two) times daily. [facility] Cholecalcif abhijeet, Vitamin D3, (VITAMIN D3) 2,000 unit tablet 2018-11 12:18: 35 Yes Take by mouth. [facility] fluticasone -vilanterol (BREO ELLIPTA) 100-25 mcg/dose DsDv 2018-11 12:18: 35 Yes Inhale. [facility] fluocinonid e 0.05 % ointment 2018-11 00:00: 00 Yes [id number] Apply to area(s) 2 (two) times daily. [facility] Kenalog (Triamcinol one) Kenalog (Triamcinol one) 2018-11 017 00:00: 00 No 40mg [facility] Dexamethaso ne Dexamethaso ne 2018-11 017 00:00: 00 No 10mg [facility] Kenalog (Triamcinol one) Kenalog (Triamcinol one) 2018-11 017 00:00: 00 No 40mg [facility] Dexamethaso ne Dexamethaso ne 2018-11 017 00:00: 00 No 10mg [facility] Kenalog (Triamcinol one) Kenalog (Triamcinol one) 2018-11 017 00:00: 00 No 40mg [facility] Dexamethaso ne Dexamethaso ne 2018-11 017 00:00: 00 No 10mg [facility] Kenalog (Triamcinol one) Kenalog (Triamcinol one) 2018-11 017 00:00: 00 No 40mg [facility] Dexamethaso ne Dexamethaso ne 2018-11 017 00:00: 00 No 10mg [facility] polymyxin B sulf-trimet hoprim 10,000 unit- 1 mg/mL ophthalmic drops 9-10 00:00: 00 Yes PUT 1 DROP INTO AFFECTED EYE 4 TIMES DAILY FOR 5 DAYS [facility] terbinafine HCl 250 mg tablet 8- 00:00: 00 Yes [id number] 250mg Take 1 tablet by mouth daily. [facility] hydrOXYzine 25 mg tablet 7-17 00:00: 00 Yes TAKE 1 TABLET BY MOUTH EVERY 8 HOURS NEEDED MAY MAKE DROWSY [facility] Kenalog (Triamcinol one) Kenalog (Triamcinol one) 3-08 00:00: 00 No 40mg [facility] Dexamethaso ne Dexamethaso ne 01-23 00:00: 00 No 10mg [facility] Kenalog (Triamcinol one) Kenalog (Triamcinol one) - 00:00: 00 No 40mg [facility] Dexamethaso ne Dexamethaso ne 01-23 00:00: 00 No 10mg [facility] Kenalog (Triamcinol one) Kenalog (Triamcinol one) 01-23 00:00: 00 No 40mg [facility] Dexamethaso ne Dexamethaso ne 01-23 00:00: 00 No 10mg [facility] Kenalog (Triamcinol one) Kenalog (Triamcinol one) 01-23 00:00: 00 No 40mg [facility] Dexamethaso ne Dexamethaso ne 01-23 00:00: 00 No 10mg [facility] risperiDONE 1 mg tablet 02-23 00:00: 00 Yes TAKE 2 TABLETS BY MOUTH AT BEDTIME MAY [facility] DROWSY [facility] P[facility]ASA 500 MG ORAL CPSR 2008-1 2-14 00:00: 00 Yes [id number] None Entered [facility] amLODIPine Besylate 5 MG amLODIPine Besylate 5 [...] t} TID Dicyclomin e HCl 20 MG Advair Diskus 250-50 MCG/ACT Advair Diskus 250-50 MCG/ACT No 1{puff} BID Advair Diskus 250-50 MCG/ACT hydrOXYzine Pamoate 25 mg hydrOXYzine Pamoate 25 mg No hydrOXYzin e Pamoate 25 mg Combivent Respimat 20-100 MCG/ACT Combivent Respimat 20-100 [...] HCl ER (XL) 300 MG No 1{table t_in_ e_morni ng} QD buPROPion HCl ER (XL) [...] t} TID Dicyclomin e HCl 20 MG Advair Diskus 250-50 MCG/ACT Advair Diskus 250-50 MCG/ACT No 1{puff} BID Advair Diskus 250-50 MCG/ACT hydrOXYzine Pamoate 25 mg hydrOXYzine Pamoate 25 mg No hydrOXYzin e Pamoate 25 mg Combivent Respimat 20-100 MCG/ACT Combivent Respimat 20-100 [...] HCl ER (XL) 300 MG No 1{table t_in_ e_morni ng} QD buPROPion HCl ER (XL) [...] t} TID Dicyclomin e HCl 20 MG Advair Diskus 250-50 MCG/ACT Advair Diskus 250-50 MCG/ACT No 1{puff} BID Advair Diskus 250-50 MCG/ACT hydrOXYzine Pamoate 25 mg hydrOXYzine Pamoate 25 mg No hydrOXYzin e Pamoate 25 mg Combivent Respimat 20-100 MCG/ACT Combivent Respimat 20-100 [...] t} TID Dicyclomin e HCl 20 MG Advair Diskus 250-50 MCG/ACT Advair Diskus 250-50 MCG/ACT No 1{puff} BID Advair Diskus 250-50 MCG/ACT hydrOXYzine Pamoate 25 mg hydrOXYzine Pamoate 25 mg No hydrOXYzin e Pamoate 25 mg Combivent Respimat 20-100 MCG/ACT Combivent Respimat 20-100 MCG/ACT No 1{puff_ as_need ed} QID Combivent Respimat 20-100 MCG/ACT Montelukast Sodium 10 MG Montelukast Sodium 10 MG No 1{table t} QD Montelukas t Sodium 10 MG Immunizations Ordered Immunization Name Filled Immunization Name Date Status Comments Source influenza, injectable influenza, injectable 2023-08-13 00:00:00 Completed Alexx Mendoza Influenza, seasonal, inj Influenza, seasonal, inj 2023-08-13 00:00:00 Genaro Mendoza (Old) Moderna COVID-19 Vaccine Bivalent Booster for ages 6 + years (18+, 12-17, 6-11) (Old) Moderna COVID-19 Vaccine Bivalent Booster for ages 6 + years (18+, 12-17, 6-11) 2022-10-22 00:00:00 Genaro Mendoza Influenza, injectable, Madin [place] Canine Kidney, preservative-free, quadrivalent Influenza, injectable, Madin [place] Canine Kidney, preservative-free, quadrivalent 2022-08-27 00:00:00 Genaro Mendoza Influenza, injectable, Madin [place] Canine Kidney, preservative-free, quadrivalent 2022-08-27 00:00:00 Completed Influenza, injectable, Madin [place] Canine Kidney, preservative-free, quadrivalent 2022-08-27 00:00:00 Completed Influenza, injectable, Madin [place] Canine Kidney, preservative-free, quadrivalent 2022-08-27 00:00:00 Completed Influenza, injectable, Madin [place] Canine Kidney, preservative-free, quadrivalent 2022-08-27 00:00:00 Completed SARS-COV-2 COVID-19 MODERNA 0.5ML BOOSTER VACCINE 2022-04-25 00:00:00 Completed [facility] Moderna COVID-19 Vaccine Moderna COVID-19 Vaccine 2022-04-25 00:00:00 Completed Alexx Mendoza SARS-COV-2 COVID-19 MODERNA 0.5ML BOOSTER VACCINE 2022-04-25 00:00:00 Completed [facility] Moderna COVID-19 Vaccine 2022-04-25 00:00:00 Completed Moderna COVID-19 Vaccine 2022-04-25 00:00:00 Completed Moderna COVID-19 Vaccine 2022-04-25 00:00:00 Completed Moderna COVID-19 Vaccine 2022-04-25 00:00:00 Completed Moderna COVID-19 Vaccine 2022-04-25 00:00:00 Completed Moderna COVID-19 Vaccine 2022-04-25 00:00:00 Completed Tdap Tdap 2022-04-24 00:00:00 Completed Alexx Mendoza Td 2022-04-24 00:00:00 Completed [facility] TD, NOS 2022-04-24 00:00:00 Completed [facility] Tdap 2022-04-24 00:00:00 Completed Tdap 2022-04-24 00:00:00 Completed Tdap 2022-04-24 00:00:00 Completed Tdap 2022-04-24 00:00:00 Completed Tdap 2022-04-24 00:00:00 Completed Tdap 2022-04-24 00:00:00 Completed Pneumococcal conjugate P Pneumococcal conjugate P 2021-10-30 00:00:00 Completed Alexx Mendoza Pneumococcal conjugate P 2021-10-30 00:00:00 Completed Pneumococcal conjugate P 2021-10-30 00:00:00 Completed Pneumococcal conjugate P 2021-10-30 00:00:00 Completed Pneumococcal conjugate P 2021-10-30 00:00:00 Completed Pneumococcal conjugate P 2021-10-30 00:00:00 Completed Pneumococcal conjugate P 2021-10-30 00:00:00 Completed SHINGRIX VACCINE SHINGRIX VACCINE 2021-10-20 00:00:00 Completed Alexx Mendoza SHINGRIX VACCINE 2021-10-20 00:00:00 Completed SHINGRIX VACCINE 2021-10-20 00:00:00 Completed SHINGRIX VACCINE 2021-10-20 00:00:00 Completed SHINGRIX VACCINE 2021-10-20 00:00:00 Completed SHINGRIX VACCINE 2021-10-20 00:00:00 Completed SHINGRIX VACCINE 2021-10-20 00:00:00 Completed Influenza, injectable, Madin [place] Canine Kidney, preservative-free, quadrivalent Influenza, injectable, Madin [place] Canine Kidney, preservative-free, quadrivalent 2021-09-05 00:00:00 Completed Alexx Mendoza Influenza Virus Vaccine Quad IM, Preserv and ABX Free 6 MO-64 YRS 2021-09-05 00:00:00 Completed [facility] Influenza Virus Vaccine Quad IM, Preserv and ABX Free 6 MO-64 YRS 2021-09-05 00:00:00 Completed [facility] Influenza Virus Vaccine Quad IM, Preserv and ABX Free 6 MO-64 YRS 2021-09-05 00:00:00 Completed [facility] Influenza Virus Vaccine Quad IM, Preserv and ABX Free 6 MO-64 YRS 2021-09-05 00:00:00 Completed [facility] Influenza Virus Vaccine Quad IM, Preserv and ABX Free 6 MO-64 YRS 2021-09-05 00:00:00 Completed [facility] Moderna COVID-19 Vaccine Moderna COVID-19 Vaccine 2021-09-04 00:00:00 Completed Alexx Mendoza SARS-COV-2 COVID-19 MODERNA 0.5ML BOOSTER VACCINE 2021-09-04 00:00:00 Completed [facility] SARS-COV-2 COVID-19 MODERNA 0.5ML BOOSTER VACCINE 2021-09-04 00:00:00 Completed [facility] Moderna COVID-19 Vaccine 2021-09-04 00:00:00 Completed Moderna COVID-19 Vaccine 2021-09-04 00:00:00 Completed Moderna COVID-19 Vaccine 2021-09-04 00:00:00 Completed Moderna COVID-19 Vaccine 2021-09-04 00:00:00 Completed Moderna COVID-19 Vaccine 2021-09-04 00:00:00 Completed Moderna COVID-19 Vaccine 2021-09-04 00:00:00 Completed Moderna COVID-19 Vaccine Moderna COVID-19 Vaccine 2021-02-24 00:00:00 Completed Alexx Mendoza SARS-COV-2 COVID-19 MODERNA VACCINE 2021-02-24 00:00:00 Completed [facility] SARS-COV-2 COVID-19 MODERNA VACCINE 2021-02-24 00:00:00 Completed [facility] SARS-COV-2 COVID-19 MODERNA VACCINE 2021-02-24 00:00:00 Completed [facility] SARS-COV-2 COVID-19 MODERNA 12+ YRS VACCINE 2021-02-24 00:00:00 Completed [facility] SARS-COV-2 COVID-19 MODERNA 12+ YRS VACCINE 2021-02-24 00:00:00 Completed [facility] Moderna COVID-19 Vaccine 2021-02-24 00:00:00 Completed Moderna COVID-19 Vaccine 2021-02-24 00:00:00 Completed Moderna COVID-19 Vaccine 2021-02-24 00:00:00 Completed Moderna COVID-19 Vaccine 2021-02-24 00:00:00 Completed Moderna COVID-19 Vaccine 2021-02-24 00:00:00 Completed Moderna COVID-19 Vaccine 2021-02-24 00:00:00 Completed Moderna COVID-19 Vaccine Moderna COVID-19 Vaccine 2021-02-01 00:00:00 Completed Alexx Mendoza SARS-COV-2 COVID-19 MODERNA VACCINE 2021-02-01 00:00:00 Completed [facility] SARS-COV-2 COVID-19 MODERNA VACCINE 2021-02-01 00:00:00 Completed [facility] SARS-COV-2 COVID-19 MODERNA VACCINE 2021-02-01 00:00:00 Completed [facility] SARS-COV-2 COVID-19 MODERNA 12+ YRS VACCINE 2021-02-01 00:00:00 Completed [facility] SARS-COV-2 COVID-19 MODERNA 12+ YRS VACCINE 2021-02-01 00:00:00 Completed [facility] Moderna COVID-19 Vaccine 2021-02-01 00:00:00 Completed Moderna COVID-19 Vaccine 2021-02-01 00:00:00 Completed Moderna COVID-19 Vaccine 2021-02-01 00:00:00 Completed Moderna COVID-19 Vaccine 2021-02-01 00:00:00 Completed Moderna COVID-19 Vaccine 2021-02-01 00:00:00 Completed Moderna COVID-19 Vaccine 2021-02-01 00:00:00 Completed Influenza Virus Vaccine Quad .5 mL IM 6+ MO 2020-07-19 00:00:00 Completed [facility] Influenza Virus Vaccine Quad IM 3+ YRS 2020-07-19 00:00:00 Completed [facility] Influenza Virus Vaccine Quad .5 mL IM 6+ MO 2020-07-19 00:00:00 Completed [facility] Influenza Virus Vaccine Quad IM 3+ YRS 2020-07-19 00:00:00 Completed [facility] Influenza Virus Vaccine Quad .5 mL IM 6+ MO 2020-07-19 00:00:00 Completed [facility] Influenza Virus Vaccine Quad IM 3+ YRS 2020-07-19 00:00:00 Completed [facility] Influenza Virus Vaccine Quad .5 mL IM 6+ MO 2020-07-19 00:00:00 Completed [facility] Influenza Virus Vaccine Quad IM 3+ YRS 2020-07-19 00:00:00 Completed [facility] Influenza Virus Vaccine Quad .5 mL IM 6+ MO 2020-07-19 00:00:00 Completed [facility] Influenza Virus Vaccine Quad IM 3+ YRS 2020-07-19 00:00:00 Completed [facility] Influenza Virus Vaccine 2019-09-17 00:00:00 Completed [facility] Influenza Virus Vaccine 2019-09-17 00:00:00 Completed [facility] Influenza Virus Vaccine 2019-09-17 00:00:00 Completed [facility] Influenza Virus Vaccine 2019-09-17 00:00:00 Completed [facility] Influenza Virus Vaccine 2019-09-17 00:00:00 Completed [facility] Influenza Virus Vaccine Unknown Completed [facility] Influenza Virus Vaccine Quad .5 mL IM 6+ MO (FLUZONE/FLULAVAL/F LUARIX) Unknown Completed [facility] SARS-COV-2 COVID-19 MODERNA 12+ YRS VACCINE Unknown Completed [facility] SARS-COV-2 COVID-19 MODERNA 12+ YRS VACCINE Unknown Completed [facility] Influenza Virus Vaccine Quad IM 3+ YRS Unknown Completed [facility] Influenza Virus Vaccine Unknown Completed [facility] Influenza Virus Vaccine Quad .5 mL IM 6+ MO (FLUZONE/FLULAVAL/F LUARIX) Unknown Completed [facility] SARS-COV-2 COVID-19 MODERNA 12+ YRS VACCINE Unknown Completed [facility] SARS-COV-2 COVID-19 MODERNA 12+ YRS VACCINE Unknown Completed [facility] Influenza Virus Vaccine Quad IM 3+ YRS Unknown Completed [facility] Influenza Virus Vaccine Unknown Completed [facility] Influenza Virus Vaccine Quad .5 mL IM 6+ MO (FLUZONE/FLULAVAL/F LUARIX) Unknown Completed [facility] Influenza Virus Vaccine Quad IM, Preserv and ABX Free 6 MO-64 YRS (FLUCELVAX) Unknown Completed [facility] SARS-COV-2 COVID-19 MODERNA 12+ YRS VACCINE Unknown Completed [facility] SARS-COV-2 COVID-19 MODERNA 12+ YRS VACCINE Unknown Completed [facility] Influenza Virus Vaccine Quad IM 3+ YRS Unknown Completed [facility] SARS-COV-2 COVID-19 MODERNA 0.5ML BOOSTER VACCINE Unknown Completed [facility] SARS-COV-2 COVID-19 MODERNA 0.5ML BOOSTER VACCINE Unknown Completed [facility] TD, NOS Unknown Completed [facility] Influenza Virus Vaccine Unknown Completed [facility] Influenza Virus Vaccine Quad .5 mL IM 6+ MO (FLUZONE/FLULAVAL/F LUARIX) Unknown Completed [facility] Influenza Virus Vaccine Quad IM, Preserv and ABX Free 6 MO-64 YRS (FLUCELVAX) Unknown Completed [facility] SARS-COV-2 COVID-19 MODERNA 12+ YRS VACCINE Unknown Completed [facility] SARS-COV-2 COVID-19 MODERNA 12+ YRS VACCINE Unknown Completed [facility] Influenza Virus Vaccine Quad IM 3+ YRS Unknown Completed [facility] SARS-COV-2 COVID-19 MODERNA 0.5ML BOOSTER VACCINE Unknown Completed [facility] SARS-COV-2 COVID-19 MODERNA 0.5ML BOOSTER VACCINE Unknown Completed [facility] TD, NOS Unknown Completed [facility] Influenza Virus Vaccine Unknown Completed [facility] Influenza Virus Vaccine Quad .5 mL IM 6+ MO (FLUZONE/FLULAVAL/F LUARIX) Unknown Completed [facility] Influenza Virus Vaccine Quad IM, Preserv and ABX Free 6 MO-64 YRS (FLUCELVAX) Unknown Completed [facility] SARS-COV-2 COVID-19 MODERNA 12+ YRS VACCINE Unknown Completed [facility] SARS-COV-2 COVID-19 MODERNA 12+ YRS VACCINE Unknown Completed [facility] Influenza Virus Vaccine Quad IM 3+ YRS Unknown Completed [facility] SARS-COV-2 COVID-19 MODERNA 0.5ML BOOSTER VACCINE Unknown Completed [facility] SARS-COV-2 COVID-19 MODERNA 0.5ML BOOSTER VACCINE Unknown Completed [facility] TD, NOS Unknown Completed [facility] Influenza Virus Vaccine Unknown Completed [facility] Influenza Virus Vaccine Quad .5 mL IM 6+ MO (FLUZONE/FLULAVAL/F LUARIX) Unknown Completed [facility] Influenza Virus Vaccine Quad IM, Preserv and ABX Free 6 MO-64 YRS (FLUCELVAX) Unknown Completed [facility] SARS-COV-2 COVID-19 MODERNA 12+ YRS VACCINE Unknown Completed [facility] SARS-COV-2 COVID-19 MODERNA 12+ YRS VACCINE Unknown Completed [facility] Influenza Virus Vaccine Quad IM 3+ YRS Unknown Completed [facility] SARS-COV-2 COVID-19 MODERNA 0.5ML BOOSTER VACCINE Unknown Completed [facility] SARS-COV-2 COVID-19 MODERNA 0.5ML BOOSTER VACCINE Unknown Completed [facility] TD, NOS Unknown Completed [facility] Influenza Virus Vaccine Unknown Completed [facility] Influenza Virus Vaccine Quad .5 mL IM 6+ MO (FLUZONE/FLULAVAL/F LUARIX) Unknown Completed [facility] Influenza Virus Vaccine Quad IM, Preserv and ABX Free 6 MO-64 YRS (FLUCELVAX) Unknown Completed [facility] SARS-COV-2 COVID-19 MODERNA 12+ YRS VACCINE Unknown Completed [facility] SARS-COV-2 COVID-19 MODERNA 12+ YRS VACCINE Unknown Completed [facility] Influenza Virus Vaccine Quad IM 3+ YRS Unknown Completed [facility] SARS-COV-2 COVID-19 MODERNA 0.5ML BOOSTER VACCINE Unknown Completed [facility] SARS-COV-2 COVID-19 MODERNA 0.5ML BOOSTER VACCINE Unknown Completed [facility] TD, NOS Unknown Completed [facility] PNEUMAVAX 23 PNEUMAVAX 23 Unknown Completed [facility] on [facility] Fluzone Fluzone Unknown Completed [facility] PNEUMAVAX 23 PNEUMAVAX 23 Unknown Completed [facility] on [facility] Fluzone Fluzone Unknown Completed [facility] PNEUMAVAX 23 PNEUMAVAX 23 Unknown Completed [facility] on [facility] Fluzone Fluzone Unknown Completed [facility] PNEUMAVAX 23 PNEUMAVAX 23 Unknown Completed [facility] on [facility] Fluzone Fluzone Unknown Completed [facility] Vital Signs Vital Name Observation Time Observation Value Comments S ource height 2023-05-01 11:15:00 60 [in_i] Commo n [facility] weight 2023-05-01 11:15:00 168 [lb_av] Comm on [facility] temperature 2023-05-01 11:15:00 97.9 [degF] Com mon [facility] bmi 2023-05-01 11:15:00 32.81 kg/m2 Comm on [facility] oximetry 2023-05-01 11:15:00 92 % Commo n [facility] respiratory rate 2023-05-01 11:15:00 18 /min [facility] blood pressure systolic 2023-05-01 11:15:00 121 mm[Hg[facility] blood [facility] diastolic 2023-05-01 11:15:00 67 mm[Hg] [facility] height 2023-02-21 08:45:00 60 [in_i] Commo n [facility] weight 2023-02-21 08:45:00 165.4 [lb_av] Co mmon [facility] temperature 2023-02-21 08:45:00 97.5 [degF] Com mon [facility] bmi 2023-02-21 08:45:00 32.3 kg/m2 Comm n [facility] oximetry 2023-02-21 08:45:00 97 % [facility] respiratory rate 2023-02-21 08:45:00 18 /min [facility] blood pressure systolic 2023-02-21 08:45:00 125 mm[Hg] [facility] blood pressure diastolic 2023-02-21 08:45:00 65 mm[Hg] [facility] Systolic blood pressure 2022-05-01 14:36:00 109 mm[Hg] [place] [facility] Diastolic blood pressure 2022-05-01 14:36:00 73 mm[Hg] [place] [facility] Heart rate 2022-05-01 14:36:00 87 /min [facility] 2022-05-01 14:36:00 152.4 cm [facility] Body weight 2022-05-01 14:36:00 70.761 kg [facility] BMI 2022-05-01 14:36:00 30.47 kg/m2 [facility] BP Systolic 2024-05-22 12:00:00 105 mm[Hg] Angel Mendoza BP Diastolic 2024-05-22 12:00:00 76 mm[Hg] Ar Mendoza Weight Measured 2024-05-22 12:00:00 131.80 pounds Alexx F Reji Height Measured 2024-05-22 12:00:00 60.00 inches Alexx F Reji Body Temperature 2024-05-22 12:00:00 97.50 degrees Alexx F Reji Heart Rate 2024-05-22 12:00:00 56.00 /min Shanel en F Reji Respiratory Rate 2024-05-22 12:00:00 18.00 /min Alexx F Reji BP Systolic 2024-05-07 15:02:00 134 mm[Hg] Step hen F Reji BP Diastolic 2024-05-07 15:02:00 88 mm[Hg] Ar phen F Reji Weight Measured 2024-05-07 15:02:00 139.80 pounds Alexx F Reji Height Measured 2024-05-07 15:02:00 60.00 inches Alexx F Reji Body Temperature 2024-05-07 15:02:00 Alexx F Reji Heart Rate 2024-05-07 15:02:00 68.00 /min Shanel en F Reji Respiratory Rate 2024-05-07 15:02:00 Alexx F Reji BP Systolic 2024-04-21 10:56:00 134 mm[Hg] Step hen F Reji BP Diastolic 2024-04-21 10:56:00 66 mm[Hg] Ar phen F Reji Weight Measured 2024-04-21 10:56:00 141.40 pounds Alexx F Reji Height Measured 2024-04-21 10:56:00 60.00 inches Alexx F Reji Body Temperature 2024-04-21 10:56:00 98.10 degrees Alexx F Reji Heart Rate 2024-04-21 10:56:00 59.00 /min Shanel en F Reji Respiratory Rate 2024-04-21 10:56:00 Alexx F Reji BP Diastolic 2024-03-19 10:01:00 64 mm[Hg] Ar phen F Reji Weight Measured 2024-03-19 10:01:00 145.60 pounds Alexx F Reji Height Measured 2024-03-19 10:01:00 60.00 inches Alexx F Reji Body Temperature 2024-03-19 10:01:00 98.20 degrees Alexx F Reji Heart Rate 2024-03-19 10:01:00 67.00 /min Shanel en F Reji Respiratory Rate 2024-03-19 10:01:00 Alexx F Reji BP Systolic 2024-03-19 10:01:00 118 mm[Hg] Step hen F Reji BP Systolic 2024-03-11 10:07:00 134 mm[Hg] Step hen F Reji BP Diastolic 2024-03-11 10:07:00 69 mm[Hg] Ar phen F Reji Weight Measured 2024-03-11 10:07:00 146.20 pounds Alexx F Reji Height Measured 2024-03-11 10:07:00 60.00 inches Alexx F Reji Body Temperature 2024-03-11 10:07:00 98.00 degrees Alexx F Reji Heart Rate 2024-03-11 10:07:00 66.00 /min Shanel en F Reji Respiratory Rate 2024-03-11 10:07:00 18.00 /min Alexx F Reji BP Systolic 2024-03-06 14:46:00 125 mm[Hg] Step hen F Reji BP Diastolic 2024-03-06 14:46:00 61 mm[Hg] Ar phen F Reji Weight Measured 2024-03-06 14:46:00 148.00 pounds Alexx F Reji Height Measured 2024-03-06 14:46:00 60.00 inches Alexx F Reji Body Temperature 2024-03-06 14:46:00 97.70 degrees Alexx F Reji Heart Rate 2024-03-06 14:46:00 57.00 /min Shanel en F Reji Respiratory Rate 2024-03-06 14:46:00 Alexx F Reji BP Systolic 2024-03-06 13:45:00 124 mm[Hg] Step hen F Reji BP Diastolic 2024-03-06 13:45:00 72 mm[Hg] Ar phen F Reji Weight Measured 2024-03-06 13:45:00 146.60 pounds Alexx F Reji Height Measured 2024-03-06 13:45:00 60.00 inches Alexx F Reji Body Temperature 2024-03-06 13:45:00 97.80 degrees Alexx F Reji Heart Rate 2024-03-06 13:45:00 61.00 /min Shanel en F Reji Respiratory Rate 2024-03-06 13:45:00 16.00 /min Alexx F Reji BP Systolic 2024-02-24 14:56:00 137 mm[Hg] Step hen F Reji BP Diastolic 2024-02-24 14:56:00 67 mm[Hg] Ar phen F Reji Weight Measured 2024-02-24 14:56:00 149.80 pounds Alexx F Reji Height Measured 2024-02-24 14:56:00 60.00 inches Alexx F Reji Body Temperature 2024-02-24 14:56:00 97.50 degrees Alexx F Reji Heart Rate 2024-02-24 14:56:00 56.00 /min Shanel en F Reji Respiratory Rate 2024-02-24 14:56:00 Alexx F Reji BP Systolic 2024-02-11 10:09:00 156 mm[Hg] Step hen F Reji BP Diastolic 2024-02-11 10:09:00 81 mm[Hg] Ar phen F Reji Weight Measured 2024-02-11 10:09:00 150.20 pounds Alexx F Reji Height Measured 2024-02-11 10:09:00 60.00 inches Alexx F Reji Body Temperature 2024-02-11 10:09:00 98.00 degrees Alexx F Reji Heart Rate 2024-02-11 10:09:00 49.00 /min Shanel en F Reji Respiratory Rate 2024-02-11 10:09:00 18.00 /min Alexx F Reji BP Systolic 2024-02-07 08:54:00 127 mm[Hg] Step hen F Reji BP Diastolic 2024-02-07 08:54:00 69 mm[Hg] Ar phen F Reji Weight Measured 2024-02-07 08:54:00 150.20 pounds Alexx F Reji Height Measured 2024-02-07 08:54:00 60.00 inches Alexx F Reji Body Temperature 2024-02-07 08:54:00 98.10 degrees Alexx F Reji Heart Rate 2024-02-07 08:54:00 56.00 /min Shanel en F Reji Respiratory Rate 2024-02-07 08:54:00 18.00 /min Alexx F Reji BP Systolic 2024-02-04 10:04:00 107 mm[Hg] Step hen F Reji BP Diastolic 2024-02-04 10:04:00 73 mm[Hg] Ar phen F Reji Weight Measured 2024-02-04 10:04:00 150.80 pounds Alexx F Reji Height Measured 2024-02-04 10:04:00 60.00 inches Alexx F Reji Body Temperature 2024-02-04 10:04:00 98.20 degrees Alexx F Reji Heart Rate 2024-02-04 10:04:00 53.00 /min Shanel en F Reji Respiratory Rate 2024-02-04 10:04:00 18.00 /min Alexx F Reji Heart Rate 2024-01-28 10:12:00 52.00 /min Shanel en F Reji Respiratory Rate 2024-01-28 10:12:00 Alexx F Reji BP Systolic 2024-01-28 10:12:00 131 mm[Hg] Step hen F Reji BP Diastolic 2024-01-28 10:12:00 65 mm[Hg] Ar phen F Reji Weight Measured 2024-01-28 10:12:00 150.00 pounds Alexx F Reji Height Measured 2024-01-28 10:12:00 60.00 inches Alexx F Reji Body Temperature 2024-01-28 10:12:00 Alexx F Reji BP Systolic 2024-01-17 11:49:00 112 mm[Hg] Step hen F Reji BP Diastolic 2024-01-17 11:49:00 63 mm[Hg] Ar phen F Reji Weight Measured 2024-01-17 11:49:00 147.60 pounds Alexx F Reji Height Measured 2024-01-17 11:49:00 60.00 inches Alexx F Reji Body Temperature 2024-01-17 11:49:00 97.80 degrees Alexx F Reji Heart Rate 2024-01-17 11:49:00 53.00 /min Shanel en F Reji Respiratory Rate 2024-01-17 11:49:00 20.00 /min Alexx F Reji BP Systolic 2024-01-13 15:40:00 129 mm[Hg] Step hen F Reji BP Diastolic 2024-01-13 15:40:00 67 mm[Hg] Ar phen F Reji Weight Measured 2024-01-13 15:40:00 148.80 pounds Alexx F Reji Height Measured 2024-01-13 15:40:00 60.00 inches Alexx F Reji Body Temperature 2024-01-13 15:40:00 98.20 degrees Alexx Mendoza Heart Rate 2024-01-13 15:40:00 78.00 /min Shanel Mendoza Respiratory Rate 2024-01-13 15:40:00 Alexx Mendoza BP Systolic 2022-08-27 16:26:00 126 mm[Hg] BP [...] / Time Performed Performing Clinicia n Source MR BRAIN WO CONTRAST 2024-02-13 16:51:57 Requisition, Paper [facility] REFERRAL- REQUEST/RESPONSE 2024-01-21 06:01:00 Doctor Unassigned, [place] [facility] REFERRAL- REQUEST/RESPONSE 2023-09-25 06:01:00 Doctor Unassigned, [place] [facility] PVR 2023-05-01 00:00:00 Common S [facility] EMG/NCV 2022-07-10 05:01:00 Addi Mallory [facility] Plan of Care Planned Activity Planned Date Details Comments Source Goal Plan of Care Note [code = 92067-2] Goal Plan of Care Note [code = 41139-9] Goal Plan of Care Note [code = 70801-9] Goal Plan of Care Note [code = 05752-5] Goal Plan of Care Note [code = 47274-3] Goal Plan of Care Note [code = 90404-8] Goal Plan of Care Note [code = 16263-0] Goal Plan of Care Note [code = 80134-1] Goal Plan of Care Note [code = 40023-4] Goal Plan of Care Note [code = 09112-5] Goal Plan of Care Note [code = 65525-2] Goal Plan of Care Note [code = 32827-2] Goal Plan of Care Note [code = 33176-1] Goal Plan of Care Note [code = 44925-2] Goal Plan of Care Note [code = 22861-0] Goal Plan of Care Note [code = 08391-8] Goal Plan of Care Note [code = 68388-8] Goal Plan of Care Note [code = 99497-5] Goal Plan of Care Note [code = 20999-9] Goal Plan of Care Note [code = 66682-1] Goal Plan of Care Note [code = 94156-5] Goal Plan of Care Note [code = 13920-0] Goal Plan of Care Note [code = 10573-3] Goal Plan of Care Note [code = 42871-7] Goal Plan of Care Note [code = 67491-5] Goal Plan of Care Note [code = 56355-2] Goal Plan of Care Note [code = 22144-3] Goal Plan of Care Note [code = 31609-1] Goal Plan of Care Note [code = 19349-5] Goal Plan of Care Note [code = 90313-6] Goal Plan of Care Note [code = 01650-8] Goal Plan of Care Note [code = 29831-0] Goal Plan of Care Note [code = 16249-4] Goal Plan of Care Note [code = 33328-3] Goal Plan of Care Note [code = 37992-6] Goal Plan of Care Note [code = 51928-6] Goal Plan of Care Note [code = 68605-3] Goal Plan of Care Note [code = 80611-0] Goal Plan of Care Note [code = 47071-4] Goal Plan of Care Note [code = 49471-0] Goal Plan of Care Note [code = 71302-9] Goal Plan of Care Note [code = 19448-6] Goal Plan of Care Note [code = 24901-5] Goal Plan of Care Note [code = 07315-5] Goal Plan of Care Note [code = 72261-0] Goal Plan of Care Note [code = 74364-3] Goal Plan of Care Note [code = 38195-1] Goal Plan of Care Note [code = 10800-0] Goal Plan of Care Note [code = 17695-5] Goal Plan of Care Note [code = 10049-4] Goal Plan of Care Note [code = 68533-5] Goal Plan of Care Note [code = 41339-8] Goal Plan of Care Note [code = 79153-2] Goal Plan of Care Note [code = 36699-4] Goal Plan of Care Note [code = 24914-9] Goal Plan of Care Note [code = 67296-6] Goal Plan of Care Note [code = 67334-3] Goal Plan of Care Note [code = 59802-6] Goal Plan of Care Note [code = 11550-5] Goal Plan of Care Note [code = 11951-5] Goal Plan of Care Note [code = 10659-7] Goal Plan of Care Note [code = 64638-8] Goal Plan of Care Note [code = 13129-6] Goal Plan of Care Note [code = 58835-2] Goal Plan of Care Note [code = 64347-8] Goal Plan of Care Note [code = 67100-4] Goal Plan of Care Note [code = 85932-5] Goal Plan of Care Note [code = 75197-5] Goal Plan of Care Note [code = 82641-7] Goal Plan of Care Note [code = 19192-7] Goal Plan of Care Note [code = 46913-6] Goal Plan of Care Note [code = 91087-9] Goal Plan of Care Note [code = 34792-7] Goal Plan of Care Note [code = 40276-3] Goal Plan of Care Note [code = 92053-1] Goal Plan of Care Note [code = 66814-2] Goal Plan of Care Note [code = 23573-9] Goal Plan of Care Note [code = 35166-4] Goal Plan of Care Note [code = 18450-0] Goal Plan of Care Note [code = 12239-2] Goal Plan of Care Note [code = 66099-9] Goal Plan of Care Note [code = 19234-0] Goal Plan of Care Note [code = 73165-7] Goal Plan of Care Note [code = 38081-6] Goal Plan of Care Note [code = 15817-4] Goal Plan of Care Note [code = 78302-4] Goal Plan of Care Note [code = 23899-4] Goal Plan of Care Note [code = 05542-1] Goal Plan of Care Note [code = 07365-0] Goal Plan of Care Note [code = 54059-0] Goal Plan of Care Note [code = 66453-4] Goal Plan of Care Note [code = 04871-9] Goal Plan of Care Note [code = 53676-1] Goal Plan of Care Note [code = 89168-9] Goal Plan of Care Note [code = 46559-5] Goal Plan of Care Note [code = 42419-4] Goal Plan of Care Note [code = 73064-3] Goal Plan of Care Note [code = 68030-7] Goal Plan of Care Note [code = 25085-7] Goal Plan of Care Note [code = 78638-6] Goal Plan of Care Note [code = 84680-6] Goal Plan of Care Note [code = 74674-1] Goal Plan of Care Note [code = 70226-7] Goal Plan of Care Note [code = 92866-6] Goal Plan of Care Note [code = 40725-5] Encounters Start Date/Time End Date/Time Encounter Type Admission Type Attending [facility] Facility Care Department Encounter ID Source 2023-09-17 10:05:02 Outpatient [facility] [id number] [facility] 2023-02-21 08:14:00 [facility] [id number] [facility] 2022-02-20 14:52:01 [facility] [id number] [facility] 2024-06-24 13:02:30 2024-06-24 13:02:30 Outpatient [facility] SFA [id number] Alexx F Reji 2024-06-16 09:24:08 2024-06-16 09:24:08 Outpatient [facility]FA SFA [id number] Alexx Janny Reji 2024-05-27 16:10:19 2024-05-27 16:10:19 Outpatient SFA SFA [id number] Alexx F Reji 2024-05-22 10:53:34 2024-05-22 10:53:34 Outpatient SFA SFA [id number] Alexx Janny Reji 2024-05-07 14:58:21 2024-05-07 14:58:21 Outpatient SFA SFA [id number] Alexx Mendoza 2024-05-07 00:00:00 2024-05-07 00:00:00 Outpatient Visit SFA [id number] Alexx Mendoza 2024-04-21 10:53:01 2024-04-21 10:53:01 Outpatient SFA SFA [id number] Alexx Mendoza 2024-04-20 08:09:05 2024-04-20 08:09:05 Outpatient SFA SFA [id number] Alexx Mendoza 2024-03-19 09:49:29 2024-03-19 09:49:29 Outpatient SFA SFA [id number] Alexx Mendoza 2024-03-11 10:00:11 2024-03-11 10:00:11 Outpatient SFA SFA [id number] Alexx Mendoza 2024-03-11 00:00:00 2024-03-11 00:00:00 Outpatient Visit SFA [id number] Alexx Mendoza 2024-03-06 14:40:32 2024-03-06 14:40:32 Outpatient SFA SFA [id number] Alexx Mendoza 2024-03-06 00:00:00 2024-03-06 00:00:00 Outpatient Visit SFA [id number]-0167-r [id number] [id number] Alexx Mendoza 2024-02-25 11:12:32 2024-02-25 11:12:32 Outpatient SFA SFA [id number] Alexx Mendoza 2024-02-24 14:53:13 2024-02-24 14:53:13 Outpatient SFA SFA [id number] Alexx Mendoza 2024-02-24 00:00:00 2024-02-24 00:00:00 Outpatient Visit SFA [id number] [id number]-i [id number]-f0a1d8 [id number] Alexx Mendoza 2024-02-13 10:36:34 2024-02-13 23:59:00 Outpatient R RADIOLOGY [facility] [id number] [facility] 2024-02-13 10:36:34 2024-02-13 23:59:00 Hospital Encounter Radiology [facility] 1.2.840.114 350.1.13.10 4.2.7.2.686 [id number] [facility] 2024-02-11 10:02:32 2024-02-11 10:02:32 Outpatient SFA SFA [id number] Alexx Mendoza 2024-02-04 10:00:45 2024-02-04 10:00:45 Outpatient SFA [facility] [id number] Alexx Mendoza 2024-01-28 10:03:07 2024-01-28 10:03:07 Outpatient SFA [facility] [id number] Alexx Mendoza 2024-01-21 00:00:00 2024-01-21 00:00:00 Orders Only Doctor Unassigned, [place] [facility] 1.2.840.114 350.1.13.10 4.2.7.2.686 [id number] [facility] 2024-01-17 11:15:56 2024-01-17 11:15:56 Outpatient SFA SFA [id number] Alexx Mendoza 2024-01-13 15:35:24 2024-01-13 15:35:24 Outpatient SFA SFA [id number] Alexx Mendoza 2024-01-06 11:39:53 2024-01-06 11:39:53 Outpatient SFA SFA [id number] Alexx Mendoza 2024-01-02 13:46:16 2024-01-02 13:46:16 Outpatient SFA SFA [id number] Alexx Mendoza 2023-12-31 10:23:16 2023-12-31 10:23:16 Outpatient SFA SFA [id number] Alexx Mendoza 2023-12-27 10:41:09 2023-12-27 10:41:09 Outpatient SFA SFA [id number] Alexx Mendoza 2023-12-18 08:58:27 2023-12-18 08:58:27 Outpatient SFA SFA [id number] Alexx Mendoza 2023-12-16 11:07:47 2023-12-16 11:07:47 Outpatient SFA SFA [id number] Alexx Mendoza 2023-12-12 11:04:54 2023-12-12 11:04:54 Outpatient SFA SFA [id number] Alexx Mendoza 2023-12-09 11:05:46 2023-12-09 11:05:46 Outpatient SFA SFA [id number] Alexx Mendoza 2023-12-05 13:09:27 2023-12-05 13:09:27 Outpatient SFA SFA [id number] Alexx Mendoza 2023-11-28 09:09:34 2023-11-28 09:09:34 Outpatient SFA SFA [id number] Alexx Mendoza 2023-11-26 10:30:25 2023-11-26 10:30:25 Outpatient SFA SFA [id number] Alexx Mendoza 2023-11-21 13:51:35 2023-11-21 13:51:35 Outpatient SFA SFA [id number] Alexx Mendoza 2023-11-14 10:52:35 2023-11-14 10:52:35 Outpatient SFA SFA [id number] Alexx Mendoza 2023-11-08 10:52:46 2023-11-08 10:52:46 Outpatient SFA SFA [id number] Alexx Mendoza 2023-11-05 08:32:54 2023-11-05 08:32:54 Outpatient SFA SFA [id number] Alexx Mendoza 2023-10-24 08:50:15 2023-10-24 08:50:15 Outpatient SFA SFA [id number] Alexx Mendoza 2023-10-14 09:04:39 2023-10-14 09:04:39 Outpatient SFA SFA [id number] Alexx Mendoza 2023-10-11 11:06:09 2023-10-11 11:06:09 Outpatient SFA [facility] [id number] Alexx Mendoza 2023-10-04 09:25:15 2023-10-04 09:25:15 Outpatient [facility] [id number] Alexx Mendoza 2023-10-01 00:00:00 2023-10-01 00:00:00 Letter (Out) Sol [place] [facility] 1.2.840.114 350.1.13.10 4.2.7.2.686 [id number] [facility] 2023-09-28 00:00:00 2023-09-28 00:00:00 Patient Secure Msg Doctor Unassigned, [place] [facility] 1.2.840.114 350.1.13.10 4.2.7.2.686 [id number] [facility] 2023-09-25 00:00:00 2023-09-25 00:00:00 Orders Only Doctor Unassigned, [place] [facility] 1.2.840.114 350.1.13.10 4.2.7.2.686 [id number] [facility] 2023-09-24 12:58:09 2023-09-24 12:58:09 Outpatient [facility] [id number] Alexx Mendoza 2023-09-19 10:43:49 2023-09-19 10:43:49 Outpatient SFA [id number] lAexx Mendoza 2023-08-28 09:58:41 2023-08-28 09:58:41 Outpatient SFA [facility] [id number] Alexx Mendoza 2023-08-26 10:14:36 2023-08-26 10:14:36 Outpatient SFA [facility] [id number] Alexx Mendoza 2023-08-16 11:35:15 2023-08-16 11:35:15 Outpatient [facility] [id number] Alexx Mendoza 2023-08-15 10:33:08 2023-08-15 10:33:08 Outpatient SFA [facility] [id number] Alexx Mendoza 2023-08-13 10:55:28 2023-08-13 10:55:28 Outpatient SFA SFA [id number] Alexx Mendoza 2023-07-02 14:38:40 2023-07-02 14:38:40 Outpatient SFA [facility] [id number] Alexx Mendoza 2023-05-30 00:00:00 2023-05-30 00:00:00 OFFICE VISIT ESTAB PT LEVEL 1 [facility]LMLC STLMLC [id number] [facility] 2023-05-07 00:00:00 2023-05-07 00:00:00 (TEL) STLMLC STLMLC [id number] [facility] 2023-05-01 00:00:00 2023-05-01 00:00:00 OFFICE VISIT ESTAB PT LEVEL 3 STLMLC STLMLC [id number] [facility] 2023-04-05 00:00:00 2023-04-05 00:00:00 Addi Mcneal [facility] 1.2.840.114 350.1.13.10 4.2.7.2.686 [id number] [facility] 2023-02-21 00:00:00 2023-02-21 00:00:00 OFFICE VISIT NEW PT LEVEL 3 STLMLC STLMLC [id number] [facility] 2022-10-22 11:24:49 2022-10-22 23:59:00 Outpatient R RADIOLOGY [facility] [id number] [facility] 2022-10-22 11:24:49 2022-10-22 23:59:00 Hospital Encounter Radiology [facility] 1.2.840.114 350.1.13.10 4.2.7.2.686 [id number] [facility] 2022-10-22 10:36:41 2022-10-22 10:36:41 Outpatient SFA SFA [id number] Alexx Mendoza 2022-10-10 17:13:07 2022-10-10 17:13:07 Outpatient SFA SFA [id number] Alexx Mendoza 2022-09-08 11:17:00 2022-09-08 11:17:00 Outpatient SFA SFA [id number] Alexx Mendoza 2022-09-08 00:00:00 2022-09-08 00:00:00 Outpatient Visit [id number] dba7-4f9b -9aca-f03 [id number] ba7-4f9b-9 josef-z0707v b8e2bf 2022-09-05 13:00:00 2022-09-05 13:00:00 Outpatient SUNITA SRINIVASAN [facility] [id number] [facility] 2022-08-28 08:17:17 2022-08-28 08:17:17 Outpatient SFA SFA [id number] Alexx Mendoza 2022-08-27 16:22:19 2022-08-27 16:22:19 Outpatient SFA SFA [id number] Alexx Mendoza 2022-08-27 00:00:00 2022-08-27 00:00:00 Outpatient Visit [id number] 4ada-406a -8ece-a29 3vd90b8ci [id number] ada-406a-8 kristin-a299bc 86a1bf 2022-08-14 00:00:00 2022-08-14 00:00:00 Outpatient Visit [id number] cbd0-4793 -43m7-08s gb0d1amnd [id number] bd0-4793-8 0b5-25cwr3 c1fced 2022-08-07 00:00:00 2022-08-07 00:00:00 Outpatient Visit r0vrdod0- 537f-428c -l59x-tq2 g0qk1k7yg [id number] a6wbfdx2-8 37f-428c-a 34f-eb8a4c f9a7cd 2022-08-06 00:00:00 2022-08-06 00:00:00 Outpatient Visit [id number]- 9616-4f16 -00l2-f2s [id number] 616-4f16-9 9y1-c7a43q 6n1748 2022-07-18 00:00:00 2022-07-18 00:00:00 Outpatient Visit 6va4i5m0- s78o-6sa7 -1vz0-u4t 646qnmx9w [id number] 1qg0p0v4-k 25e-4ea4-8 ae9-w5m590 dbec3a 2022-07-10 10:17:04 2022-07-10 23:59:00 Outpatient Manjit NATHAN EMILIA [facility] [id number] [facility] 2022-07-10 10:17:04 2022-07-10 23:59:00 Hospital Encounter [facility] 1.2.840.114 350.1.13.10 4.2.7.2.686 [id number] [facility] 2022-06-01 10:00:00 2022-06-01 10:00:00 Outpatient ADDI GRAJEDA [facility] [id number] [facility] 2022-05-01 09:40:00 2022-05-01 10:07:03 Outpatient ADDI GRAJEDA HOWARD [facility] [id number] [facility] 2022-05-01 09:40:00 2022-05-01 10:07:03 Office Visit Addi Mallory [facility] 1.2.840.114 350.1.13.10 4.2.7.2.686 [id number] [facility] 2022-02-02 11:30:00 2022-02-02 12:00:00 Office [facility] 1.840.114 350.1.13.10 4.2.7.2.686 [id number] [facility] 2022-02-02 11:30:00 2022-02-02 11:30:00 Outpatient R JOHANNA NARANJO SHIWAN [facility] [id number] [facility] 2022-01-16 15:15:00 2022-01-16 17:01:34 [facility] [id number] [facility] 2022-01-16 15:15:00 2022-01-16 17:01:34 Ancillary Visit Edward Leyvan [facility]. 1.0.114 350.1.13.10 4.2.7.2.686 [id number] [facility] 2022-01-16 15:00:00 2022-01-16 16:12:50 Outpatient R [facility] [id number] [facility] 2022-01-16 15:00:00 2022-01-16 16:12:50 Office Visit [facility] 1.840.114 350.1.13.10 4.2.7.2.686 [id number] [facility] 2022-01-16 00:00:00 2022-01-16 00:00:00 Orders Only Doctor Unassigned, [place] [facility] 1.840.114 350.1.13.10 4.2.7.2.686 [id number] [facility] 2021-11-30 12:13:29 2021-11-30 23:59:00 Hospital Encounter Johanna Naranjo [facility] 1.840.114 350.1.13.10 4.2.7.2.686 [id number] [facility] 2021-11-30 12:15:00 2021-11-30 12:30:00 Paperhanger Assistant Visit Pob, [facility] Lab [facility] 1.84.114 350.1.13.10 4.2.7.2.686 [id number] [facility] 2021-11-30 12:15:00 2021-11-30 12:15:00 Outpatient R [facility] [id number] [facility] 2021-11-30 11:30:00 2021-11-30 11:58:43 Outpatient R JOHANNA [facility] [id number] [facility] 2021-11-30 11:30:00 2021-11-30 11:58:43 Office Visit Johanna Naranjo [facility] 1.84.114 350.1.13.10 4.2.7.2.686 [id number] [facility] 2021-11-21 00:00:00 2021-11-21 00:00:00 Telephone Addi Mallory [facility]ANI[facility] 1.84.114 350.1.13.10 4.2.7.2.686 [id number] [facility] 2021-09-13 00:00:00 2021-09-13 00:00:00 Telephone Krish Singer [facility] .114 350.1.13.10 4.2.7.2.686 [id number] [facility] 2021-09-05 13:10:16 2021-09-05 13:54:57 Office Visit Sunita Montalvo [facility] Building 1.114 350.1.13.10 4.2.7.2.686 [id number] [facility] 2021-09-05 13:00:00 2021-09-05 13:00:00 Outpatient SUNITA SRINIVASAN [facility] [id number] [facility] 2021-09-05 10:48:21 2021-09-05 11:26:42 Office Visit Steven Addi [facility]?Danielito acosta Medical Office Building 1.84.114 350.1.13.10 4.2.7.2.686 [id number] [facility] 2021-09-05 00:00:00 2021-09-05 00:00:00 Orders Only Doctor Unassigned, [place] [facility] 1.84.114 350.1.13.10 4.2.7.2.686 [id number] [facility] 2021-08-29 09:20:00 2021-08-29 09:20:00 Outpatient ADDI GRAJEDA HOWARD [facility] [id number] [facility] 2021-08-29 00:00:00 2021-08-29 00:00:00 Patient Secure Jose Lima [facility] [place] [facility] 1.84.114 350.1.13.10 4.2.7.2.686 [id number] [facility] 2021-08-24 00:00:00 2021-08-24 00:00:00 Telephone Steven [facility] 1.84114 350.1.13.10 4.2.7.2.686 [id number] [facility] 2021-08-17 00:00:00 2021-08-17 00:00:00 Patient Secure Msg Jose Stein [facility] 1.2.840.114 350.1.13.10 4.2.7.2.686 [id number] [facility] 2021-08-11 12:45:00 2021-08-11 12:45:00 Outpatient STEPHANIA ASHLEY [facility] [id number] [facility] 2021-08-11 11:08:37 2021-08-11 11:23:37 Paperhanger Assistant Visit Pob, Adc Lab Main [facility] 1.2840.114 350.1.13.10 4.2.7.2.686 [id number] [facility] 2021-08-10 13:35:36 2021-08-10 14:27:23 Office Visit Jose [facility] 1.2.840.114 350.1.13.10 4.2.7.2.686 [id number] [facility] 2021-08-10 13:35:36 2021-08-10 14:27:23 Office Visit Joes Stein [facility] 1.2840.114 350.1.13.10 4.2.7.2.686 [id number] [facility] 2021-08-10 13:45:00 2021-08-10 13:45:00 Outpatient R JOSE STEIN [facility] [id number] [facility] 2021-08-10 00:00:00 2021-08-10 00:00:00 Telephone Jose Stein [facility] 1.2.840.114 350.1.13.10 4.2.7.2.686 [id number] [facility] 2021-08-03 11:00:00 2021-08-03 11:00:00 Outpatient R JOHANNA NARANJO SHIWAN [facility] [id number] [facility] 2021-07-27 18:20:00 2021-07-27 18:20:00 Outpatient R [facility] [id number] [facility] 2021-07-25 09:00:00 2021-07-25 09:00:00 Outpatient SUNITA SRINIVASAN [facility] [id number] [facility] 2021-07-11 14:45:00 2021-07-11 14:45:00 Outpatient NAGA BHANDARI [facility] [id number] [facility] 2021-06-13 14:30:00 2021-06-13 14:30:00 Outpatient R MARIANNE SAMUELS [facility] [id number] [facility] 2021-05-23 10:45:00 2021-05-23 10:45:00 Outpatient NAGA BHANDARI [facility] [id number] [facility] 2021-05-18 09:20:00 2021-05-18 09:20:00 Outpatient R JOHN QUINTANA [facility] [id number] [facility] 2021-05-08 09:30:00 2021-05-08 09:30:00 Outpatient SUNITA SRINIVASAN [facility] [id number] [facility] 2021-04-25 13:15:00 2021-04-25 13:15:00 Outpatient R ALFONZO ALVAREZ [facility] [id number] [facility] 2021-02-10 15:00:00 2021-02-10 15:00:00 Outpatient ADDI GRAJEDA HOWARD [facility] [id number] [facility] 2021-02-02 00:00:00 2021-02-02 00:00:00 Patient Outreach Gen Craig [facility] 1.2.840.114 350.1.13.10 4.2.7.2.686 [id number] 2021-01-05 13:00:00 2021-01-05 13:00:00 Outpatient LORIE RAMEY [facility] [id number] [facility] 2020-12-26 10:45:00 2020-12-26 10:45:00 Outpatient R [facility] [id number] [facility] 2020-12-12 10:57:30 2020-12-12 15:38:19 Office Visit Milan Elizalde [facility] 1.2.840.114 350.1.13.10 4.2.7.2.686 [id number] 2020-12-12 11:00:00 2020-12-12 11:00:00 Outpatient JOSE YOUNG [facility] [id number] [facility] 2020-12-08 11:40:00 2020-12-08 11:40:00 Outpatient R KAY MARROQUIN [facility] [id number] [facility] 2020-10-21 15:20:00 2020-10-21 15:20:00 Outpatient R SARA FISHER [facility] [id number] [facility] 2020-10-10 11:15:00 2020-10-10 11:15:00 Outpatient R [facility] [id number] [facility] 2020-09-23 15:00:00 2020-09-23 15:00:00 Outpatient R [facility] [id number] [facility] 2020-08-29 09:20:00 2020-08-29 09:20:00 Outpatient ADDI GRAJEDA HOWARD [facility] [id number] [facility] 2020-08-22 16:00:00 2020-08-22 16:00:00 Outpatient ADDI GRAJEDA HOWARD [facility] [id number] [facility] 2020-08-19 09:20:00 2020-08-19 09:20:00 Outpatient ADDI GRAJEDA HOWARD [facility] [id number] [facility] 2020-06-27 13:00:00 2020-06-27 13:00:00 Outpatient STEPHANIA ORANTES [facility] [id number] [facility] 2020-04-22 14:15:00 2020-04-22 14:15:00 Outpatient Manjit KUMAR JULIO C [facility] [id number] [facility] 2020-03-18 14:00:00 2020-03-18 14:00:00 Outpatient JULIO C MESA [facility] [id number] [facility] 2020-02-22 13:30:00 2020-02-22 13:30:00 Outpatient SHAQ FLORES [facility] [id number] [facility] 2020-01-13 10:10:00 2020-01-13 10:10:00 Outpatient AUGIE DEWITT [facility] [id number] [facility] 2019-12-30 10:00:00 2019-12-30 11:30:09 Outpatient AUGIE DEWITT [facility] [id number] [facility] 2019-11-15 12:00:00 2019-11-15 13:29:33 Outpatient JUSTINE PETERSON [facility] [id number] [facility] 2019-09-24 10:00:00 2019-09-24 10:40:47 Outpatient VENTURA HALLMAN [facility] [id number] [facility] Results Test Description Test Time Test Comments Results Result Co mments Source Alexx MendozaCOMPREHENSIVE METABOLIC [id number] 00:00:00* Test Item Value Reference Range Interpretation Comme nts GLUCOSE (test code = 2217) 88 MG/DL BUN (test code = 2208) 16 MG/DL CREATININE (test code = 2214) 0.98 MG/DL eGFR (2020 CKD-EPI) (test co de = 67068) 69 ML/MIN/1.73 CALC BUN/CREAT (test code = 2235) 16 RATIO SODIUM (test code = 2231) 137 MEQ/L POTASSIUM (test code = 2228) 4.6 MEQ/L CHLORIDE (test code = 2215) 103 MEQ/L CARBON DIOXIDE (test code = 2206) 21 MEQ/L CALCIUM (test code = 2209) 9.6 MG/DL PROTEIN, TOTAL (test code = 2229) 7.4 G/DL ALBUMIN (test code = 2201) 4.6 G/DL CALC GLOBULIN (test code = 2240) 2.8 G/DL CALC A/G RATIO (test code = 2234) 1.6 RATIO BILIRUBIN, TOTAL (test code = 2207) 0.2 MG/DL ALKALINE PHOSPHATASE (test code = 2204) 65 U/L AST (test code = 2218) 30 U/L ALT (test code = 2219) 36 U/L [facility] [id number] 00:00:00* Test Item Value Reference Range Interpretation Comme nts WBC (test code = 1001) 8.1 K/UL RBC (test code = 1002) 3.92 M/UL HEMOGLOBIN (test code = 1003) 12.0 G/DL HEMATOCRIT (test code = 1004) 36.5 % MCV (test code = 1005) 93.1 fL MCH (test code = 1006) 30.6 PG MCHC (test code = 1007) 32.9 G/DL RDW (test code = 1038) 13.5 % NEUTROPHILS (test code = 1008) 61.6 % LYMPHOCYTES (test code = 1010) 25.0 % MONOCYTES (test code = 1011) 11.5 % EOSINOPHILS (test code = 1012) 1.1 % BASOPHILS (test code = 1013) 0.6 % IMMATURE GRANULOCYTES (test code = 1036) 0.2 % NUCLEATED RBCS (test code = 1065) 0.0 /100WBC'S PLATELET COUNT (test code = 1015) 293 K/UL ABSOLUTE NEUTROPHILS (test c ode = 1066) 4.99 K/UL ABSOLUTE LYMPHOCYTES (test c ode = 1067) 2.03 K/UL ABSOLUTE MONOCYTES (test cod e = 1068) 0.93 K/UL ABSOLUTE EOSINOPHILS (test c ode = 1040) 0.09 K/UL ABSOLUTE BASOPHILS (test cod e = 1069) 0.05 K/UL ABS IMMATURE GRANULOCYTES (t est code = 1020) 0.02 K/UL ABS NUCLEATED RBCS (test cod e = 83696) 0.00 K/UL Alexx MendozaHEMOGLOBIN [id number] 00:00:00* Test Item Value Reference Range Interpretation Comme chele HEMOGLOBIN A1c (test code = 33807) 5.6 % Alexx MendozaALBUMIN/CREATININE RATIO, RANDOM [id number] 00:00:00* Test Item Value Reference Range Interpretation Comme chele CREATININE, URINE, CONC. (te st code = 2072) 53.6 MG/DL ALBUMIN, URINE, RANDOM (test code = 94767) 0.8 MG/DL CALC ALBUMIN/CREAT, RND (christina t code = 38119) 15 MG/G Alexx MendozaLIPID [id number] 00:00:00* Test Item Value Reference Range Interpretation Comme nts CHOLESTEROL (test code = 2210) 153 MG/DL TRIGLYCERIDES (test code = 2232) 74 MG/DL HDL CHOLESTEROL (test code = 2220) 64 MG/DL CALC LDL CHOL (test code = 2237) 74 MG/DL RISK RATIO LDL/HDL (test cod e = 2238) 1.16 RATIO Alexx MendozaCOMPREHENSIVE METABOLIC [id number] 00:00:00* Test Item Value Reference Range Interpretation Comme nts GLUCOSE (test code = 2217) 88 MG/DL BUN (test code = 2208) 16 MG/DL CREATININE (test code = 2214) 0.98 MG/DL eGFR (2020 CKD-EPI) (test co de = 44909) 69 ML/MIN/1.73 CALC BUN/CREAT (test code = 2235) 16 RATIO SODIUM (test code = 2231) 137 MEQ/L POTASSIUM (test code = 2228) 4.6 MEQ/L CHLORIDE (test code = 2215) 103 MEQ/L CARBON DIOXIDE (test code = 2206) 21 MEQ/L CALCIUM (test code = 2209) 9.6 MG/DL PROTEIN, TOTAL (test code = 2229) 7.4 G/DL ALBUMIN (test code = 2201) 4.6 G/DL CALC GLOBULIN (test code = 2240) 2.8 G/DL CALC A/G RATIO (test code = 2234) 1.6 RATIO BILIRUBIN, TOTAL (test code = 2207) 0.2 MG/DL ALKALINE PHOSPHATASE (test code = 2204) 65 U/L AST (test code = 2218) 30 U/L ALT (test code = 2219) 36 U/L Alexx MendozaCBC W/AUTO [id number] 00:00:00* Test Item Value Reference Range Interpretation Comme nts WBC (test code = 1001) 8.1 K/UL RBC (test code = 1002) 3.92 M/UL HEMOGLOBIN (test code = 1003) 12.0 G/DL HEMATOCRIT (test code = 1004) 36.5 % MCV (test code = 1005) 93.1 fL MCH (test code = 1006) 30.6 PG MCHC (test code = 1007) 32.9 G/DL RDW (test code = 1038) 13.5 % NEUTROPHILS (test code = 1008) 61.6 % LYMPHOCYTES (test code = 1010) 25.0 % MONOCYTES (test code = 1011) 11.5 % EOSINOPHILS (test code = 1012) 1.1 % BASOPHILS (test code = 1013) 0.6 % IMMATURE GRANULOCYTES (test code = 1036) 0.2 % NUCLEATED RBCS (test code = 1065) 0.0 /100WBC'S PLATELET COUNT (test code = 1015) 293 K/UL ABSOLUTE NEUTROPHILS (test c ode = 1066) 4.99 K/UL ABSOLUTE LYMPHOCYTES (test c ode = 1067) 2.03 K/UL ABSOLUTE MONOCYTES (test cod e = 1068) 0.93 K/UL ABSOLUTE EOSINOPHILS (test c ode = 1040) 0.09 K/UL ABSOLUTE BASOPHILS (test cod e = 1069) 0.05 K/UL ABS IMMATURE GRANULOCYTES (t est code = 1020) 0.02 K/UL ABS NUCLEATED RBCS (test cod e = 60419) 0.00 K/UL Alexx MendozaHEMOGLOBIN [id number] 00:00:00* Test Item Value Reference Range Interpretation Comme nts HEMOGLOBIN A1c (test code = 19155) 5.6 % Alexx MendozaALBUMIN/CREATININE RATIO, RANDOM [id number] 00:00:00* Test Item Value Reference Range Interpretation Comme nts CREATININE, URINE, CONC. (te st code = 2072) 53.6 MG/DL ALBUMIN, URINE, RANDOM (test code = 79367) 0.8 MG/DL CALC ALBUMIN/CREAT, RND (christina t code = 99080) 15 MG/G Alexx MendozaMR BRAIN WO [id number] 17:30:48EXAM: MR BRAIN WO CONTRAST HISTORY: Headache and urinary incontinence TECHNIQUE: Multiplanar and multisequence MRI imaging of the brain wasobtained without contrast. COMPARISON: ?None FINDINGS: The ventricles and cerebral sulci are normal in caliber and configuration.No midline shift or pathological extra-axial fluid collection is present.The basal cisterns are unremarkable. No restricted diffusion is present suggest acute/subacute infarction. Noparenchymal signal abnormality is seen. No abnormal gradient blooming isvisualized. Partially empty sella configuration. No abnormal fluid signal is present in the mastoid air cells or paranasalair sinuses.[facility] [ADDED] 2024-02-13 00:00:00* Test Item Value Reference Range Interpretation Comme nts CULTURE, URINE (test code = 02241) SPECIMEN NUMBER: [id number] Alexx Soliman AustinINDICATED URINE CULTURE [ADDED]2024-02-13 00:00:00* Test Item Value Reference Range Interpretation Comme nts CULTURE, URINE (test code = 12550) SPECIMEN NUMBER: [id number] Alexx Soliman AustinINDICATED URINE CULTURE [ADDED]2024-02-13 00:00:00* Test Item Value Reference Range Interpretation Comme nts CULTURE, URINE (test code = 27123) SPECIMEN NUMBER: [id number] Alexx Soliman AustinINDICATED URINE CULTURE [ADDED]2024-02-13 00:00:00* Test Item Value Reference Range Interpretation Comme nts CULTURE, URINE (test code = 24022) SPECIMEN NUMBER: [id number] Alexx Soliman AustinMICROSCOPIC URINALYSIS, REFLEX [id number] 00:00:00* Test Item Value Reference Range Interpretation Comme nts WHITE BLOOD CELLS (test code = 1513) 6-10 /HPF RED BLOOD CELLS (test code = 1514) 3-5 /HPF EPITHELIAL CELLS (test code = 83598) 0-5 /HPF BACTERIA (test code = 1515) NONE SEEN CASTS, HYALINE (test code = 1517) NONE SEEN Alexx Soliman AustinMICROSCOPIC URINALYSIS, REFLEX [id number] 00:00:00* Test Item Value Reference Range Interpretation Comme nts WHITE BLOOD CELLS (test code = 1513) 6-10 /HPF RED BLOOD CELLS (test code = 1514) 3-5 /HPF EPITHELIAL CELLS (test code = 37688) 0-5 /HPF BACTERIA (test code = 1515) NONE SEEN CASTS, HYALINE (test code = 1517) NONE SEEN Alexx Soliman AustinMICROSCOPIC URINALYSIS, REFLEX [id number] 00:00:00* Test Item Value Reference Range Interpretation Comme nts WHITE BLOOD CELLS (test code = 1513) 6-10 /HPF RED BLOOD CELLS (test code = 1514) 3-5 /HPF EPITHELIAL CELLS (test code = 05594) 0-5 /HPF BACTERIA (test code = 1515) NONE SEEN CASTS, HYALINE (test code = 1517) NONE SEEN Alexx Soliman AustinMICROSCOPIC URINALYSIS, REFLEX [id number] 00:00:00* Test Item Value Reference Range Interpretation Comme nts WHITE BLOOD CELLS (test code = 1513) 6-10 /HPF RED BLOOD CELLS (test code = 1514) 3-5 /HPF EPITHELIAL CELLS (test code = 67918) 0-5 /HPF BACTERIA (test code = 1515) NONE SEEN CASTS, HYALINE (test code = 1517) NONE SEEN Alexx Soliman AustinMICROSCOPIC URINALYSIS, REFLEX [id number] 00:00:00* Test Item Value Reference Range Interpretation Comme nts WHITE BLOOD CELLS (test code = 1513) 0-5 /HPF RED BLOOD CELLS (test code = 1514) 0-2 /HPF EPITHELIAL CELLS (test code = 98053) 0-5 /HPF BACTERIA (test code = 1515) NONE SEEN CASTS, HYALINE (test code = 1517) NONE SEEN Alexx Soliman AustinMICROSCOPIC URINALYSIS, REFLEX [id number] 00:00:00* Test Item Value Reference Range Interpretation Comme nts WHITE BLOOD CELLS (test code = 1513) 0-5 /HPF RED BLOOD CELLS (test code = 1514) 0-2 /HPF EPITHELIAL CELLS (test code = 83640) 0-5 /HPF BACTERIA (test code = 1515) NONE SEEN CASTS, HYALINE (test code = 1517) NONE SEEN Alexx Janny AustinMICROSCOPIC URINALYSIS, REFLEX [id number] 00:00:00* Test Item Value Reference Range Interpretation Comme nts WHITE BLOOD CELLS (test code = 1513) 0-5 /HPF RED BLOOD CELLS (test code = 1514) 0-2 /HPF EPITHELIAL CELLS (test code = 64922) 0-5 /HPF BACTERIA (test code = 1515) NONE SEEN CASTS, HYALINE (test code = 1517) NONE SEEN Alexx Soliman AustinMICROSCOPIC URINALYSIS, REFLEX [id number] 00:00:00* Test Item Value Reference Range Interpretation Comme nts WHITE BLOOD CELLS (test code = 1513) 0-5 /HPF RED BLOOD CELLS (test code = 1514) 0-2 /HPF EPITHELIAL CELLS (test code = 42851) 0-5 /HPF BACTERIA (test code = 1515) NONE SEEN CASTS, HYALINE (test code = 1517) NONE SEEN Alexx Soliman AustinVAGINAL PATHOGENS DNA [id number] 00:00:00* Test Item Value Reference Range Interpretation Comme nts MADDISON SPECIES (test code = 15282) NEGATIVE G. VAGINALIS (test code = 10907) NEGATIVE T. VAGINALIS (test code = 32134) NEGATIVE Alexx Soliman AustinVAGINAL PATHOGENS DNA [id number] 00:00:00* Test Item Value Reference Range Interpretation Comme nts MADDISON SPECIES (test code = 35568) NEGATIVE G. VAGINALIS (test code = 82638) NEGATIVE T. VAGINALIS (test code = 90767) NEGATIVE Alexx Soliman AustinVAGINAL PATHOGENS DNA [id number] 00:00:00* Test Item Value Reference Range Interpretation Comme nts MADDISON SPECIES (test code = 29833) NEGATIVE G. VAGINALIS (test code = 60748) NEGATIVE T. VAGINALIS (test code = 07387) NEGATIVE Alexx Soliman AustinVAGINAL PATHOGENS DNA [id number] 00:00:00* Test Item Value Reference Range Interpretation Comme nts MADDISON SPECIES (test code = 79586) NEGATIVE G. VAGINALIS (test code = 44826) NEGATIVE T. VAGINALIS (test code = 02073) NEGATIVE Alexx Soliman AustinALBUMIN/CREATININE RATIO, URINE, [id number] 04:00:28* Test Item Value Reference Range Interpretation Comme nts CREATININE, URINE, CONC. (test code = 2072) 16.3 MG/DL NOT ESTAB ALBUMIN, URINE, RANDOM (test code = 34202) 0.9 MG/DL NOT ESTAB CALC ALBUMIN/CREAT, RND (test code = 12102) 55 MG/G <30 H Note: Albumin/Cr eatinine ratio reference interval reflects ADA and NKF guidelines. UNLESS OTHERWISE INDICATED, ALL TESTING PERFORMED AT [facility] [address] [place] [id number] SAW MAKER: ELI KOVACS M.D. CLIA NUMBER [id number] [place]. [id number] ALBUMIN/CREATININE RATIO, RANDOM [id number] 00:00:00* Test Item Value Reference Range Interpretation Comme nts CREATININE, URINE, CONC. (te st code = 207) 16.3 MG/DL ALBUMIN, URINE, RANDOM (test code = 61753) 0.9 MG/DL CALC ALBUMIN/CREAT, RND (christina t code = 75193) 55 MG/G Alexx F AustinHPV HIGH RISK WITH GENOTYPE, [id number] 00:00:00* Test Item Value Reference Range Interpretation Comme nts HPV HIGH RISK INTERP (test c ode = 49210) NEGATIVE HPV 16 (test code = 15111) NEGATIVE HPV 18 (test code = 83893) NEGATIVE HPV, HR, OTHER GENOTYPES (te st code = 82628) NEGATIVE Alexx Soliman AustinPAP TEST, THINPREP, [id number] 00:00:00* Test Item Value Reference Range Interpretation Comme nts SOURCE: (test code = 8001) Cervical SLIDES: (test code = 8011) 1 LMP: (test code = 8021) NOT GIVEN SPECIMEN ADEQUACY: (test code = 71640) (NOTE) INTERPRETATION: (test code = 53509) NILM/NO EPITH. ABNORMALITY;SEE BELOW OFFICE SERVICE COORDINATOR: (test code = 8101) Lashaun Salinas LOCATION: (test code = 38403) (NOTE) CPT: (test code = 8140) (NOTE) Alexx F AustinALBUMIN/CREATININE RATIO, RANDOM [id number] 00:00:00* Test Item Value Reference Range Interpretation Comme nts CREATININE, URINE, CONC. (te st code = 207) 16.3 MG/DL ALBUMIN, URINE, RANDOM (test code = 19750) 0.9 MG/DL CALC ALBUMIN/CREAT, RND (christina t code = 02907) 55 MG/G Alexx F AustinHPV HIGH RISK WITH GENOTYPE, [id number] 00:00:00* Test Item Value Reference Range Interpretation Comme nts HPV HIGH RISK INTERP (test c ode = 03861) NEGATIVE HPV 16 (test code = 10932) NEGATIVE HPV 18 (test code = 88342) NEGATIVE HPV, HR, OTHER GENOTYPES (te st code = 61377) NEGATIVE Alexx Soliman AustinPAP TEST, THINPREP, [id number] 00:00:00* Test Item Value Reference Range Interpretation Comme nts SOURCE: (test code = 8001) Cervical SLIDES: (test code = 8011) 1 LMP: (test code = 8021) NOT GIVEN SPECIMEN ADEQUACY: (test code = 21995) (NOTE) INTERPRETATION: (test code = 85714) NILM/NO EPITH. ABNORMALITY;SEE BELOW OFFICE SERVICE COORDINATOR: (test code = 8101) Lashaun Salinas LOCATION: (test code = 79578) (NOTE) CPT: (test code = 8140) (NOTE) Alexx Soliman AustinALBUMIN/CREATININE RATIO, RANDOM [id number] 00:00:00* Test Item Value Reference Range Interpretation Comme nts CREATININE, URINE, CONC. (te st code = 2072) 16.3 MG/DL ALBUMIN, URINE, RANDOM (test code = 56138) 0.9 MG/DL CALC ALBUMIN/CREAT, RND (christina t code = 42400) 55 MG/G Alexx Soliman AustinHPV HIGH RISK WITH GENOTYPE, [id number] 00:00:00* Test Item Value Reference Range Interpretation Comme nts HPV HIGH RISK INTERP (test c ode = 52895) NEGATIVE HPV 16 (test code = 93794) NEGATIVE HPV 18 (test code = 25772) NEGATIVE HPV, HR, OTHER GENOTYPES (te st code = 22206) NEGATIVE Alexx Soliman AustinPAP TEST, THINPREP, [id number] 00:00:00* Test Item Value Reference Range Interpretation Comme nts SOURCE: (test code = 8001) Cervical SLIDES: (test code = 8011) 1 LMP: (test code = 8021) NOT GIVEN SPECIMEN ADEQUACY: (test code = 47481) (NOTE) INTERPRETATION: (test code = 04774) NILM/NO EPITH. ABNORMALITY;SEE BELOW OFFICE SERVICE COORDINATOR: (test code = 8101) Lashaun Salinas LOCATION: (test code = 71075) (NOTE) CPT: (test code = 8140) (NOTE) Alexx Soliman AustinALBUMIN/CREATININE RATIO, RANDOM [id number] 00:00:00* Test Item Value Reference Range Interpretation Comme nts CREATININE, URINE, CONC. (te st code = 2072) 16.3 MG/DL ALBUMIN, URINE, RANDOM (test code = 18526) 0.9 MG/DL CALC ALBUMIN/CREAT, RND (christina t code = 15807) 55 MG/G Alexx Soliman AustinHPV HIGH RISK WITH GENOTYPE, [id number] 00:00:00* Test Item Value Reference Range Interpretation Comme nts HPV HIGH RISK INTERP (test c ode = 26074) NEGATIVE HPV 16 (test code = 25484) NEGATIVE HPV 18 (test code = 00684) NEGATIVE HPV, HR, OTHER GENOTYPES (te st code = 26309) NEGATIVE Alexx MendozaPAP TEST, THINPREP, [id number] 00:00:00* Test Item Value Reference Range Interpretation Comme nts SOURCE: (test code = 8001) Cervical SLIDES: (test code = 8011) 1 LMP: (test code = 8021) NOT GIVEN SPECIMEN ADEQUACY: (test code = 45425) (NOTE) INTERPRETATION: (test code = 93008) NILM/NO EPITH. ABNORMALITY;SEE BELOW OFFICE SERVICE COORDINATOR: (test code = 8101) Lashaun Salinas LOCATION: (test code = 58216) (NOTE) CPT: (test code = 8140) (NOTE) Alexx Soliman AustinHEMOGLOBIN [id number] 00:00:00* Test Item Value Reference Range Interpretation Comme nts HEMOGLOBIN A1c (test code = 78841) 5.4 % Alexx Soliman AustinHEMOGLOBIN [id number] 00:00:00* Test Item Value Reference Range Interpretation Comme nts HEMOGLOBIN A1c (test code = 93361) 5.4 % Alexx Soliman AustinHEMOGLOBIN [id number] 00:00:00* Test Item Value Reference Range Interpretation Comme nts HEMOGLOBIN A1c (test code = 51312) 5.4 % Alexx Soliman AustinHEMOGLOBIN [id number] 00:00:00* Test Item Value Reference Range Interpretation Comme nts HEMOGLOBIN A1c (test code = 87734) 5.4 % Alexx MendozaCOMPREHENSIVE METABOLIC [id number] 00:00:00* Test Item Value Reference Range Interpretation Comme nts GLUCOSE (test code = 2217) 87 MG/DL BUN (test code = 2208) 8 MG/DL CREATININE (test code = 2214) 0.95 MG/DL eGFR (2020 CKD-EPI) (test co de = 54711) 72 ML/MIN/1.73 CALC BUN/CREAT (test code = 2235) 8 RATIO SODIUM (test code = 2231) 144 MEQ/L POTASSIUM (test code = 2228) 3.9 MEQ/L CHLORIDE (test code = 2215) 108 MEQ/L CARBON DIOXIDE (test code = 2206) 22 MEQ/L CALCIUM (test code = 2209) 9.9 MG/DL PROTEIN, TOTAL (test code = 2229) 7.8 G/DL ALBUMIN (test code = 2201) 4.8 G/DL CALC GLOBULIN (test code = 2240) 3.0 G/DL CALC A/G RATIO (test code = 2234) 1.6 RATIO BILIRUBIN, TOTAL (test code = 2207) 0.3 MG/DL ALKALINE PHOSPHATASE (test code = 2204) 61 U/L AST (test code = 2218) 22 U/L ALT (test code = 2219) 18 U/L [facility] [id number] 00:00:00* Test Item Value Reference Range Interpretation Comme nts TSH, THIRD GENERATION (test code = 2821) 3.120 UIU/ML Alexx MendozaCOMPREHENSIVE METABOLIC [id number] 00:00:00* Test Item Value Reference Range Interpretation Comme nts GLUCOSE (test code = 2217) 87 MG/DL BUN (test code = 2208) 8 MG/DL CREATININE (test code = 2214) 0.95 MG/DL eGFR (2020 CKD-EPI) (test co de = 70013) 72 ML/MIN/1.73 CALC BUN/CREAT (test code = 2235) 8 RATIO SODIUM (test code = 2231) 144 MEQ/L POTASSIUM (test code = 2228) 3.9 MEQ/L CHLORIDE (test code = 2215) 108 MEQ/L CARBON DIOXIDE (test code = 2206) 22 MEQ/L CALCIUM (test code = 2209) 9.9 MG/DL PROTEIN, TOTAL (test code = 2229) 7.8 G/DL ALBUMIN (test code = 2201) 4.8 G/DL CALC GLOBULIN (test code = 2240) 3.0 G/DL CALC A/G RATIO (test code = 2234) 1.6 RATIO BILIRUBIN, TOTAL (test code = 2207) 0.3 MG/DL ALKALINE PHOSPHATASE (test code = 2204) 61 U/L AST (test code = 2218) 22 U/L ALT (test code = 2219) 18 U/L Alexx Gao, THIRD [id number] 00:00:00* Test Item Value Reference Range Interpretation Comme nts TSH, THIRD GENERATION (test code = 2821) 3.120 UIU/ML Alexx MendozaCOMPREHENSIVE METABOLIC [id number] 00:00:00* Test Item Value Reference Range Interpretation Comme nts GLUCOSE (test code = 2217) 87 MG/DL BUN (test code = 2208) 8 MG/DL CREATININE (test code = 2214) 0.95 MG/DL eGFR (2020 CKD-EPI) (test co de = 29087) 72 ML/MIN/1.73 CALC BUN/CREAT (test code = 2235) 8 RATIO SODIUM (test code = 2231) 144 MEQ/L POTASSIUM (test code = 2228) 3.9 MEQ/L CHLORIDE (test code = 2215) 108 MEQ/L CARBON DIOXIDE (test code = 2206) 22 MEQ/L CALCIUM (test code = 2209) 9.9 MG/DL PROTEIN, TOTAL (test code = 2229) 7.8 G/DL ALBUMIN (test code = 2201) 4.8 G/DL CALC GLOBULIN (test code = 2240) 3.0 G/DL CALC A/G RATIO (test code = 2234) 1.6 RATIO BILIRUBIN, TOTAL (test code = 2207) 0.3 MG/DL ALKALINE PHOSPHATASE (test code = 2204) 61 U/L AST (test code = 2218) 22 U/L ALT (test code = 2219) 18 U/L Alexx MendozaTIAH, THIRD [id number] 00:00:00* Test Item Value Reference Range Interpretation Comme nts TSH, THIRD GENERATION (test code = 2821) 3.120 UIU/ML Alexx MendozaCOMPREHENSIVE METABOLIC [id number] 00:00:00* Test Item Value Reference Range Interpretation Comme nts GLUCOSE (test code = 2217) 87 MG/DL BUN (test code = 2208) 8 MG/DL CREATININE (test code = 2214) 0.95 MG/DL eGFR (2020 CKD-EPI) (test co de = 83972) 72 ML/MIN/1.73 CALC BUN/CREAT (test code = 2235) 8 RATIO SODIUM (test code = 2231) 144 MEQ/L POTASSIUM (test code = 2228) 3.9 MEQ/L CHLORIDE (test code = 2215) 108 MEQ/L CARBON DIOXIDE (test code = 2206) 22 MEQ/L CALCIUM (test code = 2209) 9.9 MG/DL PROTEIN, TOTAL (test code = 2229) 7.8 G/DL ALBUMIN (test code = 2201) 4.8 G/DL CALC GLOBULIN (test code = 2240) 3.0 G/DL CALC A/G RATIO (test code = 2234) 1.6 RATIO BILIRUBIN, TOTAL (test code = 2207) 0.3 MG/DL ALKALINE PHOSPHATASE (test code = 2204) 61 U/L AST (test code = 2218) 22 U/L ALT (test code = 2219) 18 U/L Alexx LandH, THIRD [id number] 00:00:00* Test Item Value Reference Range Interpretation Comme nts TSH, THIRD GENERATION (test code = 2821) 3.120 UIU/ML Alexx MendozaCBC (INCLUDES DIFF/PLT)2023-08-18 00:00:00* Test Item Value Reference Range Interpretation Comme nts WHITE BLOOD CELL COUNT (test code = 6690-2) 9.9 Thousand/uL RED BLOOD CELL COUNT (test code = 789-8) 4.10 Million/uL HEMOGLOBIN (test code = 718-7) 12.3 g/dL HEMATOCRIT (test code = 4544-3) 36.1 % MCV (test code = 787-2) 88.0 fL MCH (test code = 785-6) 30.0 pg MCHC (test code = 786-4) 34.1 g/dL RDW (test code = 788-0) 14.7 % PLATELET COUNT (test code = 777-3) 314 Thousand/uL MPV (test code = 776-5) 10.2 fL ABSOLUTE NEUTROPHILS (test code = 751-8) 6831 cells/uL ABSOLUTE BAND NEUTROPHILS (test code = 42931-0) DNR cells/uL ABSOLUTE METAMYELOCYTES (christina t code = 52568-8) DNR cells/uL ABSOLUTE MYELOCYTES (test code = 77602-2) DNR cells/uL ABSOLUTE PROMYELOCYTES (test code = 37906-0) DNR cells/uL ABSOLUTE LYMPHOCYTES (test code = 731-0) 1940 cells/uL ABSOLUTE MONOCYTES (test cod e = 742-7) 950 cells/uL ABSOLUTE EOSINOPHILS (test code = 711-2) 129 cells/uL ABSOLUTE BASOPHILS (test cod e = 704-7) 50 cells/uL ABSOLUTE BLASTS (test code = 14147-7) DNR cells/uL ABSOLUTE NUCLEATED RBC (test code = 21974-4) DNR cells/uL NEUTROPHILS (test code = 770-8) 69 % BAND NEUTROPHILS (test code = 764-1) DNR % METAMYELOCYTES (test code = 740-1) DNR % MYELOCYTES (test code = 749-2) DNR % PROMYELOCYTES (test code = 783-1) DNR % LYMPHOCYTES (test code = 736-9) 19.6 % REACTIVE LYMPHOCYTES (test code = 87717-6) DNR % MONOCYTES (test code = 5905-5) 9.6 % EOSINOPHILS (test code = 713-8) 1.3 % BASOPHILS (test code = 706-2) 0.5 % BLASTS (test code = 709-6) DNR % NUCLEATED RBC (test code = 80644-8) DNR /100WBC COMMENT(S) (test code = 8251-1) DNR Alexx F AustinLIPID PANEL (REFL)2023-08-18 00:00:00* Test Item Value Reference Range Interpretation Comme nts CHOLESTEROL, TOTAL (test cod e = 2093-3) 153 mg/dL HDL CHOLESTEROL (test code = 2085-9) 66 mg/dL TRIGLYCERIDES (test code = 2571-8) 79 mg/dL LDL-CHOLESTEROL (test code = 77144-1) 71 mg/dL(calc) CHOL/HDLC RATIO (test code = 9830-1) 2.3 (calc) NON HDL CHOLESTEROL (test co de = 18772-3) 87 mg/dL(calc) Alexx MendozaCOMPREHENSIVE METABOLIC [id number] 00:00:00* Test Item Value Reference Range Interpretation Comme nts GLUCOSE (test code = 2345-7) 77 mg/dL UREA NITROGEN (BUN) (test code = 3094-0) 11 mg/dL CREATININE (test code = 2160-0) 1.02 mg/dL EGFR (test code = 32691-8) 66 mL/min/1.73m2 BUN/CREATININE RATIO (test code = 3097-3) SEE NOTE: (calc) SODIUM (test code = 2951-2) 136 mmol/L POTASSIUM (test code = 2823-3) 4.2 mmol/L CHLORIDE (test code = 2075-0) 104 mmol/L CARBON DIOXIDE (test code = 2027-9) 22 mmol/L CALCIUM (test code = 34539-3) 9.2 mg/dL PROTEIN, TOTAL (test code = 2885-2) 7.5 g/dL ALBUMIN (test code = 1751-7) 4.1 g/dL GLOBULIN (test code = 12141-7) 3.4 g/dL(calc) ALBUMIN/GLOBULIN RATIO (test code = 1759-0) 1.2 (calc) BILIRUBIN, TOTAL (test code = 1975-2) 0.5 mg/dL ALKALINE PHOSPHATASE (test code = 6768-6) 65 U/L AST (test code = 1920-8) 19 U/L ALT (test code = 1742-6) 16 U/L Alexx [id number] 00:00:00* Test Item Value Reference Range Interpretation Comme nts TSH (test code = 3016-3) 1.13 mIU/L Alexx MendozaCBC (INCLUDES DIFF/PLT)2023-08-18 00:00:00* Test Item Value Reference Range Interpretation Comme nts WHITE BLOOD CELL COUNT (test code = 6690-2) 9.9 Thousand/uL RED BLOOD CELL COUNT (test code = 789-8) 4.10 Million/uL HEMOGLOBIN (test code = 718-7) 12.3 g/dL HEMATOCRIT (test code = 4544-3) 36.1 % MCV (test code = 787-2) 88.0 fL MCH (test code = 785-6) 30.0 pg MCHC (test code = 786-4) 34.1 g/dL RDW (test code = 788-0) 14.7 % PLATELET COUNT (test code = 777-3) 314 Thousand/uL MPV (test code = 776-5) 10.2 fL ABSOLUTE NEUTROPHILS (test code = 751-8) 6831 cells/uL ABSOLUTE BAND NEUTROPHILS (test code = 72635-5) DNR cells/uL ABSOLUTE METAMYELOCYTES (christina t code = 08475-0) DNR cells/uL ABSOLUTE MYELOCYTES (test code = 35550-9) DNR cells/uL ABSOLUTE PROMYELOCYTES (test code = 51652-2) DNR cells/uL ABSOLUTE LYMPHOCYTES (test code = 731-0) 1940 cells/uL ABSOLUTE MONOCYTES (test cod e = 742-7) 950 cells/uL ABSOLUTE EOSINOPHILS (test code = 711-2) 129 cells/uL ABSOLUTE BASOPHILS (test cod e = 704-7) 50 cells/uL ABSOLUTE BLASTS (test code = 44192-1) DNR cells/uL ABSOLUTE NUCLEATED RBC (test code = 88123-7) DNR cells/uL NEUTROPHILS (test code = 770-8) 69 % BAND NEUTROPHILS (test code = 764-1) DNR % METAMYELOCYTES (test code = 740-1) DNR % MYELOCYTES (test code = 749-2) DNR % PROMYELOCYTES (test code = 783-1) DNR % LYMPHOCYTES (test code = 736-9) 19.6 % REACTIVE LYMPHOCYTES (test code = 55442-9) DNR % MONOCYTES (test code = 5905-5) 9.6 % EOSINOPHILS (test code = 713-8) 1.3 % BASOPHILS (test code = 706-2) 0.5 % BLASTS (test code = 709-6) DNR % NUCLEATED RBC (test code = 21135-7) DNR /100WBC COMMENT(S) (test code = 8251-1) DNR Alexx Soliman AustinLIPID PANEL (REFL)2023-08-18 00:00:00* Test Item Value Reference Range Interpretation Comme nts CHOLESTEROL, TOTAL (test cod e = 2093-3) 153 mg/dL HDL CHOLESTEROL (test code = 2085-9) 66 mg/dL TRIGLYCERIDES (test code = 2571-8) 79 mg/dL LDL-CHOLESTEROL (test code = 23266-0) 71 mg/dL(calc) CHOL/HDLC RATIO (test code = 9830-1) 2.3 (calc) NON HDL CHOLESTEROL (test co de = 52969-5) 87 mg/dL(calc) Alexx MendozaCOMPREHENSIVE METABOLIC [id number] 00:00:00* Test Item Value Reference Range Interpretation Comme nts GLUCOSE (test code = 2345-7) 77 mg/dL UREA NITROGEN (BUN) (test code = 3094-0) 11 mg/dL CREATININE (test code = 2160-0) 1.02 mg/dL EGFR (test code = 00738-5) 66 mL/min/1.73m2 BUN/CREATININE RATIO (test code = 3097-3) SEE NOTE: (calc) SODIUM (test code = 2951-2) 136 mmol/L POTASSIUM (test code = 2823-3) 4.2 mmol/L CHLORIDE (test code = 2075-0) 104 mmol/L CARBON DIOXIDE (test code = 2027-9) 22 mmol/L CALCIUM (test code = 16764-7) 9.2 mg/dL PROTEIN, TOTAL (test code = 2885-2) 7.5 g/dL ALBUMIN (test code = 1751-7) 4.1 g/dL GLOBULIN (test code = 43518-7) 3.4 g/dL(calc) ALBUMIN/GLOBULIN RATIO (test code = 1759-0) 1.2 (calc) BILIRUBIN, TOTAL (test code = 1975-2) 0.5 mg/dL ALKALINE PHOSPHATASE (test code = 6768-6) 65 U/L AST (test code = 1920-8) 19 U/L ALT (test code = 1742-6) 16 U/L Alexx [id number] 00:00:00* Test Item Value Reference Range Interpretation Comme nts TSH (test code = 3016-3) 1.13 mIU/L Alexx MendozaCBC (INCLUDES DIFF/PLT)2023-08-18 00:00:00* Test Item Value Reference Range Interpretation Comme nts WHITE BLOOD CELL COUNT (test code = 6690-2) 9.9 Thousand/uL RED BLOOD CELL COUNT (test code = 789-8) 4.10 Million/uL HEMOGLOBIN (test code = 718-7) 12.3 g/dL HEMATOCRIT (test code = 4544-3) 36.1 % MCV (test code = 787-2) 88.0 fL MCH (test code = 785-6) 30.0 pg MCHC (test code = 786-4) 34.1 g/dL RDW (test code = 788-0) 14.7 % PLATELET COUNT (test code = 777-3) 314 Thousand/uL MPV (test code = 776-5) 10.2 fL ABSOLUTE NEUTROPHILS (test code = 751-8) 6831 cells/uL ABSOLUTE BAND NEUTROPHILS (test code = 82427-0) DNR cells/uL ABSOLUTE METAMYELOCYTES (christina t code = 48187-6) DNR cells/uL ABSOLUTE MYELOCYTES (test code = 89837-2) DNR cells/uL ABSOLUTE PROMYELOCYTES (test code = 59485-1) DNR cells/uL ABSOLUTE LYMPHOCYTES (test code = 731-0) 1940 cells/uL ABSOLUTE MONOCYTES (test cod e = 742-7) 950 cells/uL ABSOLUTE EOSINOPHILS (test code = 711-2) 129 cells/uL ABSOLUTE BASOPHILS (test cod e = 704-7) 50 cells/uL ABSOLUTE BLASTS (test code = 42973-3) DNR cells/uL ABSOLUTE NUCLEATED RBC (test code = 81011-2) DNR cells/uL NEUTROPHILS (test code = 770-8) 69 % BAND NEUTROPHILS (test code = 764-1) DNR % METAMYELOCYTES (test code = 740-1) DNR % MYELOCYTES (test code = 749-2) DNR % PROMYELOCYTES (test code = 783-1) DNR % LYMPHOCYTES (test code = 736-9) 19.6 % REACTIVE LYMPHOCYTES (test code = 75409-5) DNR % MONOCYTES (test code = 5905-5) 9.6 % EOSINOPHILS (test code = 713-8) 1.3 % BASOPHILS (test code = 706-2) 0.5 % BLASTS (test code = 709-6) DNR % NUCLEATED RBC (test code = 08162-2) DNR /100WBC COMMENT(S) (test code = 8251-1) DNR Alexx MendozaLIPID PANEL (REFL)2023-08-18 00:00:00* Test Item Value Reference Range Interpretation Comme nts CHOLESTEROL, TOTAL (test cod e = 2093-3) 153 mg/dL HDL CHOLESTEROL (test code = 2085-9) 66 mg/dL TRIGLYCERIDES (test code = 2571-8) 79 mg/dL LDL-CHOLESTEROL (test code = 40437-6) 71 mg/dL(calc) CHOL/HDLC RATIO (test code = 9830-1) 2.3 (calc) NON HDL CHOLESTEROL (test co de = 48188-0) 87 mg/dL(calc) Alexx MendozaCOMPREHENSIVE METABOLIC [id number] 00:00:00* Test Item Value Reference Range Interpretation Comme nts GLUCOSE (test code = 2345-7) 77 mg/dL UREA NITROGEN (BUN) (test code = 3094-0) 11 mg/dL CREATININE (test code = 2160-0) 1.02 mg/dL EGFR (test code = 13453-6) 66 mL/min/1.73m2 BUN/CREATININE RATIO (test code = 3097-3) SEE NOTE: (calc) SODIUM (test code = 2951-2) 136 mmol/L POTASSIUM (test code = 2823-3) 4.2 mmol/L CHLORIDE (test code = 2075-0) 104 mmol/L CARBON DIOXIDE (test code = 2027-9) 22 mmol/L CALCIUM (test code = 20949-0) 9.2 mg/dL PROTEIN, TOTAL (test code = 2885-2) 7.5 g/dL ALBUMIN (test code = 1751-7) 4.1 g/dL GLOBULIN (test code = 73860-4) 3.4 g/dL(calc) ALBUMIN/GLOBULIN RATIO (test code = 1759-0) 1.2 (calc) BILIRUBIN, TOTAL (test code = 1975-2) 0.5 mg/dL ALKALINE PHOSPHATASE (test code = 6768-6) 65 U/L AST (test code = 1920-8) 19 U/L ALT (test code = 1742-6) 16 U/L Alexx [id number] 00:00:00* Test Item Value Reference Range Interpretation Comme nts TSH (test code = 3016-3) 1.13 mIU/L Alexx MendozaCBC (INCLUDES DIFF/PLT)2023-08-18 00:00:00* Test Item Value Reference Range Interpretation Comme nts WHITE BLOOD CELL COUNT (test code = 6690-2) 9.9 Thousand/uL RED BLOOD CELL COUNT (test code = 789-8) 4.10 Million/uL HEMOGLOBIN (test code = 718-7) 12.3 g/dL HEMATOCRIT (test code = 4544-3) 36.1 % MCV (test code = 787-2) 88.0 fL MCH (test code = 785-6) 30.0 pg MCHC (test code = 786-4) 34.1 g/dL RDW (test code = 788-0) 14.7 % PLATELET COUNT (test code = 777-3) 314 Thousand/uL MPV (test code = 776-5) 10.2 fL ABSOLUTE NEUTROPHILS (test code = 751-8) 6831 cells/uL ABSOLUTE BAND NEUTROPHILS (test code = 12642-8) DNR cells/uL ABSOLUTE METAMYELOCYTES (christina t code = 62096-9) DNR cells/uL ABSOLUTE MYELOCYTES (test code = 52068-9) DNR cells/uL ABSOLUTE PROMYELOCYTES (test code = 88419-3) DNR cells/uL ABSOLUTE LYMPHOCYTES (test code = 731-0) 1940 cells/uL ABSOLUTE MONOCYTES (test cod e = 742-7) 950 cells/uL ABSOLUTE EOSINOPHILS (test code = 711-2) 129 cells/uL ABSOLUTE BASOPHILS (test cod e = 704-7) 50 cells/uL ABSOLUTE BLASTS (test code = 92355-5) DNR cells/uL ABSOLUTE NUCLEATED RBC (test code = 08816-5) DNR cells/uL NEUTROPHILS (test code = 770-8) 69 % BAND NEUTROPHILS (test code = 764-1) DNR % METAMYELOCYTES (test code = 740-1) DNR % MYELOCYTES (test code = 749-2) DNR % PROMYELOCYTES (test code = 783-1) DNR % LYMPHOCYTES (test code = 736-9) 19.6 % REACTIVE LYMPHOCYTES (test code = 10545-2) DNR % MONOCYTES (test code = 5905-5) 9.6 % EOSINOPHILS (test code = 713-8) 1.3 % BASOPHILS (test code = 706-2) 0.5 % BLASTS (test code = 709-6) DNR % NUCLEATED RBC (test code = 52132-5) DNR /100WBC COMMENT(S) (test code = 8251-1) DNR Alexx Soliman AustinLIPID PANEL (REFL)2023-08-18 00:00:00* Test Item Value Reference Range Interpretation Comme nts CHOLESTEROL, TOTAL (test cod e = 2093-3) 153 mg/dL HDL CHOLESTEROL (test code = 2085-9) 66 mg/dL TRIGLYCERIDES (test code = 2571-8) 79 mg/dL LDL-CHOLESTEROL (test code = 90468-9) 71 mg/dL(calc) CHOL/HDLC RATIO (test code = 9830-1) 2.3 (calc) NON HDL CHOLESTEROL (test co de = 82420-8) 87 mg/dL(calc) Alexx MendozaCOMPREHENSIVE METABOLIC [id number] 00:00:00* Test Item Value Reference Range Interpretation Comme nts GLUCOSE (test code = 2345-7) 77 mg/dL UREA NITROGEN (BUN) (test code = 3094-0) 11 mg/dL CREATININE (test code = 2160-0) 1.02 mg/dL EGFR (test code = 77993-4) 66 mL/min/1.73m2 BUN/CREATININE RATIO (test code = 3097-3) SEE NOTE: (calc) SODIUM (test code = 2951-2) 136 mmol/L POTASSIUM (test code = 2823-3) 4.2 mmol/L CHLORIDE (test code = 2075-0) 104 mmol/L CARBON DIOXIDE (test code = 2027-9) 22 mmol/L CALCIUM (test code = 04364-4) 9.2 mg/dL PROTEIN, TOTAL (test code = 2885-2) 7.5 g/dL ALBUMIN (test code = 1751-7) 4.1 g/dL GLOBULIN (test code = 21546-5) 3.4 g/dL(calc) ALBUMIN/GLOBULIN RATIO (test code = 1759-0) 1.2 (calc) BILIRUBIN, TOTAL (test code = 1975-2) 0.5 mg/dL ALKALINE PHOSPHATASE (test code = 6768-6) 65 U/L AST (test code = 1920-8) 19 U/L ALT (test code = 1742-6) 16 U/L Alexx [id number] 00:00:00* Test Item Value Reference Range Interpretation Comme nts TSH (test code = 3016-3) 1.13 mIU/L Alexx Soliman AustinOCCULT BLD,FECAL,IMMUNOASSAY [id number] 09:56:34* Test Item Value Reference Range Interpretation Comme nts OCCULT BLD, FECAL (test code = 20370) NEGATIVE NEGATIVE UNLESS OTHER [place] INDICATED, ALL TESTING PERFORMED [facility] [employer] [address] [place] [address] SAW MAKER: SKYLER SAUER M.D. CLIA NUMBER [id number] [facility] [place]. [id number] OCCULT BLD,FECAL,IMMUNOASSAY [id number] 00:00:00* Test Item Value Reference Range Interpretation Comme nts OCCULT BLD, FECAL (test code = 34336) NEGATIVE OCCULT BLD,FECAL,IMMUNOASSAY [id number] 00:00:00* Test Item Value Reference Range Interpretation Comme nts OCCULT BLD, FECAL (test code = 77949) NEGATIVE OCCULT BLD,FECAL,IMMUNOASSAY [id number] 00:00:00* Test Item Value Reference Range Interpretation Comme nts OCCULT BLD, FECAL (test code = 22419) NEGATIVE OCCULT BLD,FECAL,IMMUNOASSAY [id number] 00:00:00* Test Item Value Reference Range Interpretation Comme nts OCCULT BLD, FECAL (test code = 94717) NEGATIVE Alexx F AustinOCCULT BLD,FECAL,IMMUNOASSAY [id number] 00:00:00* Test Item Value Reference Range Interpretation Comme nts OCCULT BLD, FECAL (test code = 88384) NEGATIVE Alexx F AustinOCCULT BLD,FECAL,IMMUNOASSAY [id number] 00:00:00* Test Item Value Reference Range Interpretation Comme nts OCCULT BLD, FECAL (test code = 47403) NEGATIVE Alexx F AustinOCCULT BLD,FECAL,IMMUNOASSAY [id number] 00:00:00* Test Item Value Reference Range Interpretation Comme nts OCCULT BLD, FECAL (test code = 74095) NEGATIVE Alexx Soliman AustinLIPID [id number] 03:01:05* Test Item Value Reference Range Interpretation Comme nts CHOLESTEROL (test code = 2210) 252 MG/DL <200 H TRIGLYCERIDES (test code = 2232) 131 MG/DL <150 HDL CHOLESTEROL (test code = 2220) 57 MG/DL >39 CALC LDL CHOL (test code = 2237) 168 MG/DL <100 H NOTE: CALCULATED LDL IS BASED ON JIMBO-RICHARDS METHOD WHICHINCLUDES ADJUSTABLE TRIGLYCERIDE:VLDL CHOLESTEROL RATIO.THIS FACTOR VARIES BY MEASURED TRIGLYCERIDE AND NON-HDLCHOLESTEROL CONCENTRATIONS WITH INCREASED CALCULATED LDL SEENIN HIGHER TRIGLYCERIDE OR LOWER NON-HDL SPECIMENS. FOR MOREINFORMATION, SEE CLIENT ANNOUNCEMENT AT [email or web address] RISK RATIO LDL/HDL (test code = 2238) 2.95 RATIO <3.22 COMPREHENSIVE METABOLIC [id number] 03:01:05* Test Item Value Reference Range Interpretation Comme nts GLUCOSE (test code = 2217) 101 MG/DL 70-99 H BUN (test code = 2208) 14 MG/DL 6-20 CREATININE (test code = 2214) 0.97 MG/DL 0.60-1.30 eGFR (2020 CKD-EPI) (test code = 36985) 71 ML/MIN/1.73 >60 CALC BUN/CREAT (test code = 2235) 14 RATIO 6-28 SODIUM (test code = 223) 141 MEQ/L 133-146 POTASSIUM (test code = 2228) 3.9 MEQ/L 3.5-5.4 CHLORIDE (test code = 2215) 107 MEQ/L 95-107 CARBON DIOXIDE (test code = 2206) 20 MEQ/L 19-31 CALCIUM (test code = 2209) 9.6 MG/DL 8.5-10.5 PROTEIN, TOTAL (test code = 222) 7.8 G/DL 6.1-8.3 ALBUMIN (test code = 2201) 4.5 G/DL 3.5-5.2 CALC GLOBULIN (test code = 2240) 3.3 G/DL 1.9-3.7 CALC A/G RATIO (test code = 2234) 1.4 RATIO 1.0-2.6 BILIRUBIN, TOTAL (test code = 2207) 0.3 MG/DL See_Comment [Automated me ssage] The system which generated this result transmitted reference range: <=1.2. The reference range was not used to interpret this result as normal/abnormal. ALKALINE PHOSPHATASE (test code = 2204) 79 U/L 40-130 AST (test code = 2218) 22 U/L 9-40 ALT (test code = 2219) 19 U/L 5-40 UNLESS OTHERWISE INDICATED, ALL TESTING PERFORMED [facility] [employer] [employer] [address] [place] [address] SAW MAKER: SKYLER SAUER M.D. CLIA NUMBER [id number] [facility] [place]. [id number] HEMOGLOBIN [id number] 02:02:40* Test Item Value Reference Range Interpretation Comme nts HEMOGLOBIN A1c (test code = 63266) 5.7 % 4.2-5.6 H HEMOGLOBIN [id number] 00:00:00* Test Item Value Reference Range Interpretation Comme nts HEMOGLOBIN A1c (test code = 85125) 5.8 % HEMOGLOBIN [id number] 00:00:00* Test Item Value Reference Range Interpretation Comme nts HEMOGLOBIN A1c (test code = 90530) 5.8 % HEMOGLOBIN [id number] 00:00:00* Test Item Value Reference Range Interpretation Comme nts HEMOGLOBIN A1c (test code = 84533) 5.8 % HEMOGLOBIN [id number] 00:00:00* Test Item Value Reference Range Interpretation Comme nts HEMOGLOBIN A1c (test code = 63300) 5.8 % HEMOGLOBIN [id number] 00:00:00* Test Item Value Reference Range Interpretation Comme nts HEMOGLOBIN A1c (test code = 92486) 5.8 % HEMOGLOBIN [id number] 00:00:00* Test Item Value Reference Range Interpretation Comme nts HEMOGLOBIN A1c (test code = 44789) 5.8 % HEMOGLOBIN [id number] 00:00:00* Test Item Value Reference Range Interpretation Comme nts HEMOGLOBIN A1c (test code = 21121) 5.8 % HEMOGLOBIN [id number] 00:00:00* Test Item Value Reference Range Interpretation Comme nts HEMOGLOBIN A1c (test code = 17563) 5.8 % HEMOGLOBIN [id number] 00:00:00* Test Item Value Reference Range Interpretation Comme nts HEMOGLOBIN A1c (test code = 01529) 5.8 % HEMOGLOBIN [id number] 00:00:00* Test Item Value Reference Range Interpretation Comme nts HEMOGLOBIN A1c (test code = 47940) 5.8 % HEMOGLOBIN [id number] 00:00:00* Test Item Value Reference Range Interpretation Comme nts HEMOGLOBIN A1c (test code = 12301) 5.8 % HEMOGLOBIN [id number] 00:00:00* Test Item Value Reference Range Interpretation Comme nts HEMOGLOBIN A1c (test code = 08036) 5.8 % HEMOGLOBIN [id number] 00:00:00* Test Item Value Reference Range Interpretation Comme nts HEMOGLOBIN A1c (test code = 88620) 5.8 % HEMOGLOBIN [id number] 00:00:00* Test Item Value Reference Range Interpretation Comme nts HEMOGLOBIN A1c (test code = 58741) 5.8 % HEMOGLOBIN [id number] 00:00:00* Test Item Value Reference Range Interpretation Comme nts HEMOGLOBIN A1c (test code = 87608) 5.8 % HEMOGLOBIN [id number] 00:00:00* Test Item Value Reference Range Interpretation Comme nts HEMOGLOBIN A1c (test code = 98827) 5.8 % HEMOGLOBIN [id number] 00:00:00* Test Item Value Reference Range Interpretation Comme nts HEMOGLOBIN A1c (test code = 93442) 5.8 % HEMOGLOBIN [id number] 00:00:00* Test Item Value Reference Range Interpretation Comme nts HEMOGLOBIN A1c (test code = 15988) 5.8 % HEMOGLOBIN [id number] 00:00:00* Test Item Value Reference Range Interpretation Comme nts HEMOGLOBIN A1c (test code = 04111) 5.8 % Alexx F AustinHEMOGLOBIN [id number] 00:00:00* Test Item Value Reference Range Interpretation Comme nts HEMOGLOBIN A1c (test code = 54889) 5.8 % Alexx F AustinHEMOGLOBIN [id number] 00:00:00* Test Item Value Reference Range Interpretation Comme nts HEMOGLOBIN A1c (test code = 74406) 5.8 % Alexx F AustinHEMOGLOBIN [id number] 00:00:00* Test Item Value Reference Range Interpretation Comme nts HEMOGLOBIN A1c (test code = 00379) 5.8 % Alexx Soliman AustinHEMOGLOBIN [id number] 00:00:00* Test Item Value Reference Range Interpretation Comme nts HEMOGLOBIN A1c (test code = 69537) 5.7 % HEMOGLOBIN [id number] 00:00:00* Test Item Value Reference Range Interpretation Comme nts HEMOGLOBIN A1c (test code = 38856) 5.7 % HEMOGLOBIN [id number] 00:00:00* Test Item Value Reference Range Interpretation Comme nts HEMOGLOBIN A1c (test code = 23257) 5.7 % LIPID [id number] 00:00:00* Test Item Value Reference Range Interpretation Comme nts CHOLESTEROL (test code = 2210) 119 MG/DL TRIGLYCERIDES (test code = 2232) 140 MG/DL HDL CHOLESTEROL (test code = 2220) 49 MG/DL CALC LDL CHOL (test code = 2237) 48 MG/DL RISK RATIO LDL/HDL (test cod e = 2238) 0.98 RATIO LIPID [id number] 00:00:00* Test Item Value Reference Range Interpretation Comme nts CHOLESTEROL (test code = 2210) 119 MG/DL TRIGLYCERIDES (test code = 2232) 140 MG/DL HDL CHOLESTEROL (test code = 2220) 49 MG/DL CALC LDL CHOL (test code = 2237) 48 MG/DL RISK RATIO LDL/HDL (test cod e = 2238) 0.98 RATIO COMPREHENSIVE METABOLIC [id number] 00:00:00* Test Item Value Reference Range Interpretation Comme nts GLUCOSE (test code = 2217) 101 MG/DL BUN (test code = 2208) 18 MG/DL CREATININE (test code = 2214) 0.88 MG/DL eGFR AMER. (test cod e = 82387) 89 ML/MIN/1.73 eGFR NON- AMER. (test code = 74033) 77 ML/MIN/1.73 CALC BUN/CREAT (test code = [...] code = 2219) 28 U/L COMPREHENSIVE METABOLIC [id number] 00:00:00* Test Item Value Reference Range Interpretation Comme nts GLUCOSE (test code = 2217) 101 MG/DL BUN (test code = 2208) 18 MG/DL CREATININE (test code = 2214) 0.88 MG/DL eGFR AMER. (test cod e = 30239) 89 ML/MIN/1.73 eGFR NON- AMER. (test code = 46160) 77 ML/MIN/1.73 CALC BUN/CREAT (test code = [...] 2219) 28 U/L TSH + FREE T4 [id number] 00:00:00* Test Item Value Reference Range Interpretation Comme nts TSH, THIRD GENERATION (test code = 2821) 1.110 UIU/ML FREE T4 (THYROXINE) (test co de = 2823) 0.83 NG/DL TSH + FREE T4 [id number] 00:00:00* Test Item Value Reference Range Interpretation Comme nts TSH, THIRD GENERATION (test code = 2821) 1.110 UIU/ML FREE T4 (THYROXINE) (test co de = 2823) 0.83 NG/DL TSH + FREE T4 [id number] 00:00:00* Test Item Value Reference Range Interpretation Comme nts TSH, THIRD GENERATION (test code = 2821) 1.110 UIU/ML FREE T4 (THYROXINE) (test co de = 2823) 0.83 NG/DL HEMOGLOBIN [id number] 00:00:00* Test Item Value Reference Range Interpretation Comme nts HEMOGLOBIN A1c (test code = 83968) 5.7 % HEMOGLOBIN [id number] 00:00:00* Test Item Value Reference Range Interpretation Comme nts HEMOGLOBIN A1c (test code = 93257) 5.7 % HEMOGLOBIN [id number] 00:00:00* Test Item Value Reference Range Interpretation Comme nts HEMOGLOBIN A1c (test code = 37700) 5.7 % LIPID [id number] 00:00:00* Test Item Value Reference Range Interpretation Comme nts CHOLESTEROL (test code = 2210) 119 MG/DL TRIGLYCERIDES (test code = 2232) 140 MG/DL HDL CHOLESTEROL (test code = 2220) 49 MG/DL CALC LDL CHOL (test code = 2237) 48 MG/DL RISK RATIO LDL/HDL (test cod e = 2238) 0.98 RATIO LIPID [id number] 00:00:00* Test Item Value Reference Range Interpretation Comme nts CHOLESTEROL (test code = 2210) 119 MG/DL TRIGLYCERIDES (test code = 2232) 140 MG/DL HDL CHOLESTEROL (test code = 2220) 49 MG/DL CALC LDL CHOL (test code = 2237) 48 MG/DL RISK RATIO LDL/HDL (test cod e = 2238) 0.98 RATIO COMPREHENSIVE METABOLIC [id number] 00:00:00* Test Item Value Reference Range Interpretation Comme nts GLUCOSE (test code = 2217) 101 MG/DL BUN (test code = 2208) 18 MG/DL CREATININE (test code = 2214) 0.88 MG/DL eGFR AMER. (test cod e = 47331) 89 ML/MIN/1.73 eGFR NON- AMER. (test code = 48572) 77 ML/MIN/1.73 CALC BUN/CREAT (test code = [...] code = 2219) 28 U/L COMPREHENSIVE METABOLIC [id number] 00:00:00* Test Item Value Reference Range Interpretation Comme nts GLUCOSE (test code = 2217) 101 MG/DL BUN (test code = 2208) 18 MG/DL CREATININE (test code = 2214) 0.88 MG/DL eGFR AMER. (test cod e = 64968) 89 ML/MIN/1.73 eGFR NON- AMER. (test code = 86327) 77 ML/MIN/1.73 CALC BUN/CREAT (test code = [...] 2219) 28 U/L TSH + FREE T4 [id number] 00:00:00* Test Item Value Reference Range Interpretation Comme nts TSH, THIRD GENERATION (test code = 2821) 1.110 UIU/ML FREE T4 (THYROXINE) (test co de = 2823) 0.83 NG/DL TSH + FREE T4 [id number] 00:00:00* Test Item Value Reference Range Interpretation Comme nts TSH, THIRD GENERATION (test code = 2821) 1.110 UIU/ML FREE T4 (THYROXINE) (test co de = 2823) 0.83 NG/DL TSH + FREE T4 [id number] 00:00:00* Test Item Value Reference Range Interpretation Comme nts TSH, THIRD GENERATION (test code = 2821) 1.110 UIU/ML FREE T4 (THYROXINE) (test co de = 2823) 0.83 NG/DL HEMOGLOBIN [id number] 00:00:00* Test Item Value Reference Range Interpretation Comme nts HEMOGLOBIN A1c (test code = 04499) 5.7 % HEMOGLOBIN [id number] 00:00:00* Test Item Value Reference Range Interpretation Comme nts HEMOGLOBIN A1c (test code = 84997) 5.7 % HEMOGLOBIN [id number] 00:00:00* Test Item Value Reference Range Interpretation Comme nts HEMOGLOBIN A1c (test code = 68240) 5.7 % LIPID [id number] 00:00:00* Test Item Value Reference Range Interpretation Comme nts CHOLESTEROL (test code = 2210) 119 MG/DL TRIGLYCERIDES (test code = 2232) 140 MG/DL HDL CHOLESTEROL (test code = 2220) 49 MG/DL CALC LDL CHOL (test code = 2237) 48 MG/DL RISK RATIO LDL/HDL (test cod e = 2238) 0.98 RATIO LIPID [id number] 00:00:00* Test Item Value Reference Range Interpretation Comme nts CHOLESTEROL (test code = 2210) 119 MG/DL TRIGLYCERIDES (test code = 2232) 140 MG/DL HDL CHOLESTEROL (test code = 2220) 49 MG/DL CALC LDL CHOL (test code = 2237) 48 MG/DL RISK RATIO LDL/HDL (test cod e = 2238) 0.98 RATIO COMPREHENSIVE METABOLIC [id number] 00:00:00* Test Item Value Reference Range Interpretation Comme nts GLUCOSE (test code = 2217) 101 MG/DL BUN (test code = 2208) 18 MG/DL CREATININE (test code = 2214) 0.88 MG/DL eGFR AMER. (test cod e = 97743) 89 ML/MIN/1.73 eGFR NON- AMER. (test code = 53636) 77 ML/MIN/1.73 CALC BUN/CREAT (test code = [...] code = 2219) 28 U/L COMPREHENSIVE METABOLIC [id number] 00:00:00* Test Item Value Reference Range Interpretation Comme nts GLUCOSE (test code = 2217) 101 MG/DL BUN (test code = 2208) 18 MG/DL CREATININE (test code = 2214) 0.88 MG/DL eGFR AMER. (test cod e = 72951) 89 ML/MIN/1.73 eGFR NON- AMER. (test code = 43012) 77 ML/MIN/1.73 CALC BUN/CREAT (test code = [...] 2219) 28 U/L TSH + FREE T4 [id number] 00:00:00* Test Item Value Reference Range Interpretation Comme nts TSH, THIRD GENERATION (test code = 2821) 1.110 UIU/ML FREE T4 (THYROXINE) (test co de = 2823) 0.83 NG/DL TSH + FREE T4 [id number] 00:00:00* Test Item Value Reference Range Interpretation Comme nts TSH, THIRD GENERATION (test code = 2821) 1.110 UIU/ML FREE T4 (THYROXINE) (test co de = 2823) 0.83 NG/DL TSH + FREE T4 [id number] 00:00:00* Test Item Value Reference Range Interpretation Comme nts TSH, THIRD GENERATION (test code = 2821) 1.110 UIU/ML FREE T4 (THYROXINE) (test co de = 2823) 0.83 NG/DL HEMOGLOBIN [id number] 00:00:00* Test Item Value Reference Range Interpretation Comme nts HEMOGLOBIN A1c (test code = 22006) 5.7 % HEMOGLOBIN [id number] 00:00:00* Test Item Value Reference Range Interpretation Comme nts HEMOGLOBIN A1c (test code = 42862) 5.7 % HEMOGLOBIN [id number] 00:00:00* Test Item Value Reference Range Interpretation Comme nts HEMOGLOBIN A1c (test code = 24503) 5.7 % LIPID [id number] 00:00:00* Test Item Value Reference Range Interpretation Comme nts CHOLESTEROL (test code = 2210) 119 MG/DL TRIGLYCERIDES (test code = 2232) 140 MG/DL HDL CHOLESTEROL (test code = 2220) 49 MG/DL CALC LDL CHOL (test code = 2237) 48 MG/DL RISK RATIO LDL/HDL (test cod e = 2238) 0.98 RATIO LIPID [id number] 00:00:00* Test Item Value Reference Range Interpretation Comme nts CHOLESTEROL (test code = 2210) 119 MG/DL TRIGLYCERIDES (test code = 2232) 140 MG/DL HDL CHOLESTEROL (test code = 2220) 49 MG/DL CALC LDL CHOL (test code = 2237) 48 MG/DL RISK RATIO LDL/HDL (test cod e = 2238) 0.98 RATIO COMPREHENSIVE METABOLIC [id number] 00:00:00* Test Item Value Reference Range Interpretation Comme nts GLUCOSE (test code = 2217) 101 MG/DL BUN (test code = 2208) 18 MG/DL CREATININE (test code = 2214) 0.88 MG/DL eGFR AMER. (test cod e = 35933) 89 ML/MIN/1.73 eGFR NON- AMER. (test code = 46622) 77 ML/MIN/1.73 CALC BUN/CREAT (test code = [...] code = 2219) 28 U/L COMPREHENSIVE METABOLIC [id number] 00:00:00* Test Item Value Reference Range Interpretation Comme nts GLUCOSE (test code = 2217) 101 MG/DL BUN (test code = 2208) 18 MG/DL CREATININE (test code = 2214) 0.88 MG/DL eGFR AMER. (test cod e = 09861) 89 ML/MIN/1.73 eGFR NON- AMER. (test code = 80636) 77 ML/MIN/1.73 CALC BUN/CREAT (test code = [...] 2219) 28 U/L TSH + FREE T4 [id number] 00:00:00* Test Item Value Reference Range Interpretation Comme nts TSH, THIRD GENERATION (test code = 2821) 1.110 UIU/ML FREE T4 (THYROXINE) (test co de = 2823) 0.83 NG/DL TSH + FREE T4 [id number] 00:00:00* Test Item Value Reference Range Interpretation Comme nts TSH, THIRD GENERATION (test code = 2821) 1.110 UIU/ML FREE T4 (THYROXINE) (test co de = 2823) 0.83 NG/DL TSH + FREE T4 [id number] 00:00:00* Test Item Value Reference Range Interpretation Comme nts TSH, THIRD GENERATION (test code = 2821) 1.110 UIU/ML FREE T4 (THYROXINE) (test co de = 2823) 0.83 NG/DL HEMOGLOBIN [id number] 00:00:00* Test Item Value Reference Range Interpretation Comme nts HEMOGLOBIN A1c (test code = 77291) 5.7 % HEMOGLOBIN [id number] 00:00:00* Test Item Value Reference Range Interpretation Comme nts HEMOGLOBIN A1c (test code = 63155) 5.7 % HEMOGLOBIN [id number] 00:00:00* Test Item Value Reference Range Interpretation Comme nts HEMOGLOBIN A1c (test code = 94916) 5.7 % LIPID [id number] 00:00:00* Test Item Value Reference Range Interpretation Comme nts CHOLESTEROL (test code = 2210) 119 MG/DL TRIGLYCERIDES (test code = 2232) 140 MG/DL HDL CHOLESTEROL (test code = 2220) 49 MG/DL CALC LDL CHOL (test code = 2237) 48 MG/DL RISK RATIO LDL/HDL (test cod e = 2238) 0.98 RATIO LIPID [id number] 00:00:00* Test Item Value Reference Range Interpretation Comme nts CHOLESTEROL (test code = 2210) 119 MG/DL TRIGLYCERIDES (test code = 2232) 140 MG/DL HDL CHOLESTEROL (test code = 2220) 49 MG/DL CALC LDL CHOL (test code = 2237) 48 MG/DL RISK RATIO LDL/HDL (test cod e = 2238) 0.98 RATIO COMPREHENSIVE METABOLIC [id number] 00:00:00* Test Item Value Reference Range Interpretation Comme nts GLUCOSE (test code = 2217) 101 MG/DL BUN (test code = 2208) 18 MG/DL CREATININE (test code = 2214) 0.88 MG/DL eGFR AMER. (test cod e = 36779) 89 ML/MIN/1.73 eGFR NON- AMER. (test code = 29279) 77 ML/MIN/1.73 CALC BUN/CREAT (test code = [...] code = 2219) 28 U/L COMPREHENSIVE METABOLIC [id number] 00:00:00* Test Item Value Reference Range Interpretation Comme nts GLUCOSE (test code = 2217) 101 MG/DL BUN (test code = 2208) 18 MG/DL CREATININE (test code = 2214) 0.88 MG/DL eGFR AMER. (test cod e = 16211) 89 ML/MIN/1.73 eGFR NON- AMER. (test code = 90240) 77 ML/MIN/1.73 CALC BUN/CREAT (test code = 2234) 20 RATIO SODIUM (test code = 223) 139 MEQ/L POTASSIUM (test code = 2228) 3.9 MEQ/L CHLORIDE (test code = 2215) 109 MEQ/L CARBON DIOXIDE (test code = 2206) 18 MEQ/L CALCIUM (test code = 2209) 8.9 MG/DL PROTEIN, TOTAL (test code = 2228) 7.6 G/DL ALBUMIN (test code = 220) 4.0 G/DL CALC GLOBULIN (test code = 2240) 3.6 G/DL CALC A/G RATIO (test code = 2234) 1.1 RATIO BILIRUBIN, TOTAL (test code = 2206) 0.3 MG/DL ALKALINE PHOSPHATASE (test code = 2203) 79 U/L AST (test code = 2217) 28 U/L ALT (test code = 2218) 28 U/L TSH + FREE T4 [id number] 00:00:00* Test Item Value Reference Range Interpretation Comme nts TSH, THIRD GENERATION (test code = 2821) 1.110 UIU/ML FREE T4 (THYROXINE) (test co de = 2823) 0.83 NG/DL TSH + FREE T4 [id number] 00:00:00* Test Item Value Reference Range Interpretation Comme nts TSH, THIRD GENERATION (test code = 2821) 1.110 UIU/ML FREE T4 (THYROXINE) (test co de = 2823) 0.83 NG/DL TSH + FREE T4 [id number] 00:00:00* Test Item Value Reference Range Interpretation Comme nts TSH, THIRD GENERATION (test code = 2821) 1.110 UIU/ML FREE T4 (THYROXINE) (test co de = 2823) 0.83 NG/DL HEMOGLOBIN [id number] 00:00:00* Test Item Value Reference Range Interpretation Comme nts HEMOGLOBIN A1c (test code = 98119) 5.7 % HEMOGLOBIN [id number] 00:00:00* Test Item Value Reference Range Interpretation Comme nts HEMOGLOBIN A1c (test code = 17841) 5.7 % HEMOGLOBIN [id number] 00:00:00* Test Item Value Reference Range Interpretation Comme nts HEMOGLOBIN A1c (test code = 93374) 5.7 % LIPID [id number] 00:00:00* Test Item Value Reference Range Interpretation Comme nts CHOLESTEROL (test code = 2210) 119 MG/DL TRIGLYCERIDES (test code = 2232) 140 MG/DL HDL CHOLESTEROL (test code = 2220) 49 MG/DL CALC LDL CHOL (test code = 2237) 48 MG/DL RISK RATIO LDL/HDL (test cod e = 2238) 0.98 RATIO LIPID [id number] 00:00:00* Test Item Value Reference Range Interpretation Comme nts CHOLESTEROL (test code = 2210) 119 MG/DL TRIGLYCERIDES (test code = 2232) 140 MG/DL HDL CHOLESTEROL (test code = 2220) 49 MG/DL CALC LDL CHOL (test code = 2237) 48 MG/DL RISK RATIO LDL/HDL (test cod e = 2238) 0.98 RATIO COMPREHENSIVE METABOLIC [id number] 00:00:00* Test Item Value Reference Range Interpretation Comme nts GLUCOSE (test code = 2217) 101 MG/DL BUN (test code = 2208) 18 MG/DL CREATININE (test code = 2214) 0.88 MG/DL eGFR AMER. (test cod e = 57984) 89 ML/MIN/1.73 eGFR NON- AMER. (test code = 10500) 77 ML/MIN/1.73 CALC BUN/CREAT (test code = [...] code = 2219) 28 U/L COMPREHENSIVE METABOLIC [id number] 00:00:00* Test Item Value Reference Range Interpretation Comme nts GLUCOSE (test code = 2217) 101 MG/DL BUN (test code = 2208) 18 MG/DL CREATININE (test code = 2214) 0.88 MG/DL eGFR AMER. (test cod e = 68729) 89 ML/MIN/1.73 eGFR NON- AMER. (test code = 35765) 77 ML/MIN/1.73 CALC BUN/CREAT (test code = [...] 2219) 28 U/L TSH + FREE T4 [id number] 00:00:00* Test Item Value Reference Range Interpretation Comme [facility] TSH, THIRD GENERATION (test code = 2821) 1.110 UIU/ML FREE T4 (THYROXINE) (test co de = 2823) 0.83 NG/DL TSH + FREE T4 [id number] 00:00:00* Test Item Value Reference Range Interpretation Comme [facility] TSH, THIRD GENERATION (test code = 2821) 1.110 UIU/ML FREE T4 (THYROXINE) (test co de = 2823) 0.83 NG/DL TSH + FREE T4 [id number] 00:00:00* Test Item Value Reference Range Interpretation Comme nts TSH, THIRD GENERATION (test code = 2821) 1.110 UIU/ML FREE T4 (THYROXINE) (test co de = 2823) 0.83 NG/DL HEMOGLOBIN [id number] 00:00:00* Test Item Value Reference Range Interpretation Comme nts HEMOGLOBIN A1c (test code = 76875) 5.7 % Alexx MendozaLIPID [id number] 00:00:00* Test Item Value Reference Range Interpretation Comme nts CHOLESTEROL (test code = 2210) 119 MG/DL TRIGLYCERIDES (test code = 2232) 140 MG/DL HDL CHOLESTEROL (test code = 2220) 49 MG/DL CALC LDL CHOL (test code = 2237) 48 MG/DL RISK RATIO LDL/HDL (test cod e = 2238) 0.98 RATIO Alexx MendozaCOMPREHENSIVE METABOLIC [id number] 00:00:00* Test Item Value Reference Range Interpretation Comme nts GLUCOSE (test code = 2217) 101 MG/DL BUN (test code = 2208) 18 MG/DL CREATININE (test code = 2214) 0.88 MG/DL eGFR AMER. (test cod e = 89652) 89 ML/MIN/1.73 eGFR NON- AMER. (test code = 34640) 77 ML/MIN/1.73 CALC BUN/CREAT (test code = [...] ALT (test code = 2219) 28 U/L Alexx MendozaTSH + FREE T4 [id number] 00:00:00* Test Item Value Reference Range Interpretation Comme nts TSH, THIRD GENERATION (test code = 2821) 1.110 UIU/ML FREE T4 (THYROXINE) (test co de = 2823) 0.83 NG/DL Alexx MendozaHEMOGLOBIN [id number] 00:00:00* Test Item Value Reference Range Interpretation Comme nts HEMOGLOBIN A1c (test code = 27255) 5.7 % Alexx MendozaLIPID [id number] 00:00:00* Test Item Value Reference Range Interpretation Comme nts CHOLESTEROL (test code = 2210) 119 MG/DL TRIGLYCERIDES (test code = 2232) 140 MG/DL HDL CHOLESTEROL (test code = 2220) 49 MG/DL CALC LDL CHOL (test code = 2237) 48 MG/DL RISK RATIO LDL/HDL (test cod e = 2238) 0.98 RATIO Alexx MendozaCOMPREHENSIVE METABOLIC [id number] 00:00:00* Test Item Value Reference Range Interpretation Comme nts GLUCOSE (test code = 2217) 101 MG/DL BUN (test code = 2208) 18 MG/DL CREATININE (test code = 2214) 0.88 MG/DL eGFR AMER. (test cod e = 64020) 89 ML/MIN/1.73 eGFR NON- AMER. (test code = 24071) 77 ML/MIN/1.73 CALC BUN/CREAT (test code = [...] ALT (test code = 2219) 28 U/L Alexx MendozaTSH + FREE T4 [id number] 00:00:00* Test Item Value Reference Range Interpretation Comme nts TSH, THIRD GENERATION (test code = 2821) 1.110 UIU/ML FREE T4 (THYROXINE) (test co de = 2823) 0.83 NG/DL Alexx MendozaHEMOGLOBIN [id number] 00:00:00* Test Item Value Reference Range Interpretation Comme nts HEMOGLOBIN A1c (test code = 09021) 5.7 % Alexx MendozaLIPID [id number] 00:00:00* Test Item Value Reference Range Interpretation Comme nts CHOLESTEROL (test code = 2210) 119 MG/DL TRIGLYCERIDES (test code = 2232) 140 MG/DL HDL CHOLESTEROL (test code = 2220) 49 MG/DL CALC LDL CHOL (test code = 2237) 48 MG/DL RISK RATIO LDL/HDL (test cod e = 2238) 0.98 RATIO Alexx MendozaCOMPREHENSIVE METABOLIC [id number] 00:00:00* Test Item Value Reference Range Interpretation Comme nts GLUCOSE (test code = 2217) 101 MG/DL BUN (test code = 2208) 18 MG/DL CREATININE (test code = 2214) 0.88 MG/DL eGFR AMER. (test cod e = 39325) 89 ML/MIN/1.73 eGFR NON- AMER. (test code = 98565) 77 ML/MIN/1.73 CALC BUN/CREAT (test code = [...] ALT (test code = 2219) 28 U/L Alexx MendozaTSH + FREE T4 [id number] 00:00:00* Test Item Value Reference Range Interpretation Comme nts TSH, THIRD GENERATION (test code = 2821) 1.110 UIU/ML FREE T4 (THYROXINE) (test co de = 2823) 0.83 NG/DL Alexx MendozaHEMOGLOBIN [id number] 00:00:00* Test Item Value Reference Range Interpretation Comme chele HEMOGLOBIN A1c (test code = 51832) 5.7 % Alexx MendozaLIPID [id number] 00:00:00* Test Item Value Reference Range Interpretation Comme nts CHOLESTEROL (test code = 2210) 119 MG/DL TRIGLYCERIDES (test code = 2232) 140 MG/DL HDL CHOLESTEROL (test code = 2220) 49 MG/DL CALC LDL CHOL (test code = 2237) 48 MG/DL RISK RATIO LDL/HDL (test cod e = 2238) 0.98 RATIO Alexx MendozaCOMPREHENSIVE METABOLIC [id number] 00:00:00* Test Item Value Reference Range Interpretation Comme nts GLUCOSE (test code = 2217) 101 MG/DL BUN (test code = 2208) 18 MG/DL CREATININE (test code = 2214) 0.88 MG/DL eGFR AMER. (test cod e = 27229) 89 ML/MIN/1.73 eGFR NON- AMER. (test code = 69983) 77 ML/MIN/1.73 CALC BUN/CREAT (test code = [...] ALT (test code = 2219) 28 U/L Alexx MendozaTSH + FREE T4 [id number] 00:00:00* Test Item Value Reference Range Interpretation Comme nts TSH, THIRD GENERATION (test code = 2821) 1.110 UIU/ML FREE T4 (THYROXINE) (test co de = 2823) 0.83 NG/DL Alexx Mendoza Notes Date/Time Note Provider Source Alexx Mendoza [facility]2024-04-24 00:00:00 Plan Activity skull extending to behind ea rs. Rx Triamcinolone apply BID to affected area Rx clobetasol shampoo 0.05% apply to dry scalp daily for up to 4 week. leave shampoo lather on scap x15 min and rinse off f/u if no improvement 2024-03-19 Stelara 90mg SQ every 8 week s given today in clinic per pt request. Rx written by Dr. Levi Tran Patient clinically stable. Continue care with GI as recommended by specialist 2023-12-18 continue present medications ,low salt diet and exercise and lose weight 2020-06-22 Currently stable - No indica tion for further intervention Continue maintenance inhaler steroids and rescue inhaler with Albuterol advised beginning exercises and lose weight continue follow-up specialist 2021-02-07 continue follow-up with [facility] 2021-02-07 RX: Atorvastatin 20 mg 1 tab po QHS LIPIDS AND LFT EVERY 6 MONTHS LOW CHOLESTEROL DIET AND EXERCISE 2021-02-07 advised to go to ER for furt her management advice to follow-up at neurology as soon as possible 2021-02-09 TSH with free T4 2021-03-13 triamcinolone acetonide 0.1% 1 application on the affected skin BID Medication education given Avoid scented soaps and detergents Keep skin moisturized RTO for worsening symptoms 2021-07-11 second of soft shingles vacc ine want to come on 03 January with her mom in the parking lot. requesting TDAP vaccine 2021-12-28 hx of neurological issue sin ce 3 years ago. unsure of diagnosis. Denied eye pain or blurry vision. No facial paralysis on examination recommend to see neurology ER precaution 2022-07-18 rx nystatin ointment oral hygiene. F/U if no improvement 2022-07-18 Healthy Diet and Daily Physical Activity 2022-08-07 Recommend daily physical act ivity including cardiovascular and strengthening exercises. 2022-08-07 Recommend diet high in fruits and vegetables, lean meats, low in fat and processed sugars. Monitor portion sizes. ADA DIET AND PORTION CONTROL AND LOW FAT DIET NO ADDED SALT Recommend diet high in fruits and vegetables, lean meats, low in fat and processed sugars. Monitor portion size 2022-08-07 Possible rebound Covid Bromfed DM for cough prn continue Flonase supportive treatment push fluids ER Precautions given RTO for new or worsening symptoms Quarantine for additional 5 days 2022-08-07 The xray lumbosacral spine a rthritis Baclofen 10 mg daily at bedtime Continue meloxicam PRN only Heating pad when necessary follow-up with the orthopedic 2022-10-10 Patient doing well on curren t medications Follow by orthopedic MD Rx: gabapentin meloxicam 2022-10-10 amoxicillin 503 times a day for 10 days gargle with warm salt water Labs CBC CMP and vitamin B12 levels 2022-11-15 differential diagnosis discussed with patient and be mononeuropathy from the diabetes. She has arthritis of the lumbosacral spine cannot rule out sciatica her gabapentin dose increase in medications helped the patient's pain .She has a scoliosis and inflammation bowel disease can cause myalgia but she says it usually hurts at night. Rx , Rx for the gabapentin, meloxicam and baclofen 2022-11-15 Crohn's disease hypertension hyperlipidemia bipolar disorder other conditions patient continuing diabetic medications right and exercise need to lose weight Ozempic start with .25 mg Q weekly follow with me in one month 2023-01-31 Appears to be viral vs aller gies. No indication for abx at this time. Symptoms controlled on Albuterol and inhaler increase fluids Patient wants cough medications - Bromfed because it doesn't make her feel like the OTC medications. Rx Bromfed 10ml po Q4-6 hrs prn symptoms. 2023-08-28 Due to psoriasis rx: Ciprofloxacin-dexAMETHasone 0.3-0.1 % Otic Suspension - INSTILL 4 DROPS IN THE AFFECTED EAR(S) TWICE DAILY X 7 days nothing in ear. Keep the outside cleaned. 10/16/2023 ADDENDUM: Due to insurance changed to [id number] 2-3 gtts po Q4-6 hrs 2023-10-14 Patient with extensive work up for right lower leg pain Based on exam patient with symptoms and signs of Lal splints. Patient to alternate ice and warm compresses to the area, Demonstrated exercises and stretches. Pt requesting an xray - will order lower leg xray RTO based on xray results. 2023-08-15 Recommend warm baths - soak, Take NSAIDS for pain Use soft support with sitting for extended amount of time,. xray for coccyx 2023-09-24 WIll need to evaluate for or ganic causes for current mental state Check CMP, TSH, Patient is clinically stable without any SI/HI. SA/FIERRO Refer for evaluation. 2023-10-24 right breast pain between 6- 8 o'clock warm compresses tylenol referral for diagnostics completed 2023-11-05 hx of crohns disease, and li rocío mass Referral for GI completed 2023-11-05 2023-11-05 HEMOGLOBIN A1c 5. 4 % 1) Foot care as instructed; Keep Blood Glucose Log; Exercise; Weight Management; Modify Diet: Low carbohydrates, low- fat, and limit sugar- sweetened beverages 2Patient to continue ozempic 3) Check Labs HA1C, LIPID, CMP today RTO 6 months 2024-04-21 Encourage weight loss, healthy diet, and exercise. 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 She is to continue with Mexloicam and tylenol continue with alternating ice and heat to the area. encourage to wear foot sleeve for support. Referral for podiatry Dr Jose Rowe DPM 2023-11-21 Atrophic vaginitis Send PAP with HPV follow up based on lab results, Patient is scheduled for Mammogram Continue SBE If 50 or greater, schedule colonoscopy or give Heme card. Recommend Ca 2+ and Vitamin D if menopausal Immunizations as age indicated Annual well adult with PCP as indicated Screening labs as indicated 2023-12-03 Sent affirm BV and Yeast disease progression education given Discussed medication usage and side effects Medication sent to the pharmacy Fluconazole , 150 MG Tablet, TAKE 1 TABLET NOW, AND REPEAT IN 4 DAYS. Avoid intercourse until completion of treatment Good hygiene Avoid douching Avoid scented feminine pads Avoid perfume soaps Wear cotton undergarments Return to clinic in 2 weeks if not resolved Patient verbalized understanding of treatment plan 2023-12-31 Underneath panus. Patient to keep the area dry No baby powder or fragrant powder Due to the severe irritation will treat with Clotrimazole-Betamethasone , 1-0.05 % Cream , 15 GM Tube, APPLY SPARINGLY TO THE AFFECTED AREA(S) TWICE DAILY. X 7 days only then due continual care with Nystatin , [id number] UNIT/GM Cream , GM, APPLY 2-3 TIMES DAILY TO AFFECTED AREA(S). RTO PRN 2023-12-31 Patient with well controlled DM - on Ozempic 25mg Qweekly 2023-11-05 HEMOGLOBIN A1c 5.4 % FSBG 58-69 with some symptoms but noted eating only 1-2X day. Recommend discontinuing the Ozempic at this time Encourage to eat healthy meals 3 times a day with small healthy low carb snacks X 2 Patient given signs and symptoms of when to seek emergent care 2023-12-31 associated with FIERRO and gait disturbances. Referral for MRI of brain Follow up s/p results. urine dip Patient given signs and symptoms of when to seek emergent care. 2024-01-13 causing dry eye and no relie f with OTC wetting drops. Referral completed for Ophthalmology Isiah Salazar. 2024-01-20 Left upper chest wall Portac ath - patient is unaware of when it was placed and why it was placed. Referral completed for Joana Salazar 2024-01-20 Patient with well controlled DM requesting pallative care Patient continue with current medications. Continue the gabapentin, meloxicam and baclofen 2023-12-09 At this time no abnormal gai t Will continue to evaluate. Patient to get the information regarding palliative care and Home health. 2023-12-18 erythromycin (0.5 %) 1 appli cation in both eyes every 4 hours for 7 days Medication education given continue to use warm wash cloth to wipe discharge wash hands and surfaces frequently. Recommend for pt to follow up with lead teacher if she continues with symptoms after completion of antibiotic ointment. 2024-01-28 Increase water intake. Flonase Allergy Relief 50mcg/actuation 1 squirt in the nostrils BID Continue OTC cetirizine or loratadine daily. OTC decongestant as needed. Saline nasal irrigation as needed for comfort. 2024-03-09 mupirocin 2% 1 application o n the skin BID RTO if not improved in 1 week or if symptoms worsen. Keep skin clean and dry. Avoid touching/picking at lesion. 2024-03-09 Noted to have left ear cellulitis You can take charge of your health by staying current on well-care visits, screenings, and immunizations. Our goal is to help you live a healthier and happier life through preventive care. Review family medical history. Take a daily multivitamin, exercise and ensure healthy life style modifications, control weight Recommend keeping up on adult vaccinations: TDAP and FLU HIV test one time during adulthood (through age 65) RTO for next WEA in 1 yr 2024-03-11 will start antibioitics for treatment Rx cephalexin 500 mg tablet Take 1 tablet by mouth three times a day warm compresses to the area patient given signs and symptoms of when to seek emergent care 2024-03-11 Encourage healthy diet and exercise 2023 combination of muscle and neuropathy worsened by no Stelara I explained that i am unable to prescribe at this time. Increase gabepentin 300mg 2 cap po TID ( temporary) increase Baclofen 1 tab po BID ( temporary) Patient may have get refills back at base dosage earlier due to current increase 2024-05-07 [facility]x [facility] 00:00:00 Plan Activity Marked improvement Severe sc alp lesions with supra infection requiring aggressive treatment Patient to schedule with Derm for more aggressive treatment as prior completed Clinidamycin continue Triamcinolone apply BID Atarax 25 mg `1 tab po Q 4-6 hrs prn itching clobetasol shampoo 0.05% apply to dry scalp daily for up to 4 week. leave shampoo lather on scap x15 min and rinse off f/u if no improvement 2020-06-22 Stelara 90mg SQ every 8 week s given today in clinic per pt request. Rx written by Dr. Levi Tran Patient clinically stable. Continue care with GI as recommended by specialist 2023-12-18 continue present medications ,low salt diet and exercise and lose weight 2020-06-22 Currently stable - No indica tion for further intervention Continue maintenance inhaler steroids and rescue inhaler with Albuterol advised beginning exercises and lose weight continue follow-up specialist 2021-02-07 continue follow-up with [facility] 2021-02-07 RX: Atorvastatin 20 mg 1 tab po QHS LIPIDS AND LFT EVERY 6 MONTHS LOW CHOLESTEROL DIET AND EXERCISE 2021-02-07 advised to go to ER for furt her management advice to follow-up at neurology as soon as possible 2021-02-09 TSH with free T4 2021-03-13 triamcinolone acetonide 0.1% 1 application on the affected skin BID Medication education given Avoid scented soaps and detergents Keep skin moisturized RTO for worsening symptoms 2021-07-11 second of soft shingles vacc ine want to come on 03 January with her mom in the parking lot. requesting TDAP vaccine 2021-12-28 hx of neurological issue sin ce 3 years ago. unsure of diagnosis. Denied eye pain or blurry vision. No facial paralysis on examination recommend to see neurology ER precaution 2022-07-18 rx nystatin ointment oral hygiene. F/U if no improvement 2022-07-18 Healthy Diet and Daily Physical Activity 2022-08-07 Recommend daily physical act ivity including cardiovascular and strengthening exercises. 2022-08-07 Recommend diet high in fruits and vegetables, lean meats, low in fat and processed sugars. Monitor portion sizes. ADA DIET AND PORTION CONTROL AND LOW FAT DIET NO ADDED SALT Recommend diet high in fruits and vegetables, lean meats, low in fat and processed sugars. Monitor portion size 2022-08-07 Possible rebound Covid Bromfed DM for cough prn continue Flonase supportive treatment push fluids ER Precautions given RTO for new or worsening symptoms Quarantine for additional 5 days 2022-08-07 The xray lumbosacral spine a rthritis Baclofen 10 mg daily at bedtime Continue meloxicam PRN only Heating pad when necessary follow-up with the orthopedic 2022-10-10 Patient doing well on curren t medications Follow by orthopedic MD Rx: gabapentin meloxicam 2022-10-10 amoxicillin 503 times a day for 10 days gargle with warm salt water Labs CBC CMP and vitamin B12 levels 2022-11-15 differential diagnosis discussed with patient and be mononeuropathy from the diabetes. She has arthritis of the lumbosacral spine cannot rule out sciatica her gabapentin dose increase in medications helped the patient's pain .She has a scoliosis and inflammation bowel disease can cause myalgia but she says it usually hurts at night. Rx , Rx for the gabapentin, meloxicam and baclofen 2022-11-15 Crohn's disease hypertension hyperlipidemia bipolar disorder other conditions patient continuing diabetic medications right and exercise need to lose weight Ozempic start with .25 mg Q weekly follow with me in one month 2023-01-31 Appears to be viral vs aller gies. No indication for abx at this time. Symptoms controlled on Albuterol and inhaler increase fluids Patient wants cough medications - Bromfed because it doesn't make her feel like the OTC medications. Rx Bromfed 10ml po Q4-6 hrs prn symptoms. 2023-08-28 Due to psoriasis rx: Ciprofloxacin-dexAMETHasone 0.3-0.1 % Otic Suspension - INSTILL 4 DROPS IN THE AFFECTED EAR(S) TWICE DAILY X 7 days nothing in ear. Keep the outside cleaned. 10/16/2023 ADDENDUM: Due to insurance changed to [id number] 2-3 gtts po Q4-6 hrs 2023-10-14 Patient with extensive work up for right lower leg pain Based on exam patient with symptoms and signs of Lal splints. Patient to alternate ice and warm compresses to the area, Demonstrated exercises and stretches. Pt requesting an xray - will order lower leg xray RTO based on xray results. 2023-08-15 Recommend warm baths - soak, Take NSAIDS for pain Use soft support with sitting for extended amount of time,. xray for coccyx 2023-09-24 WIll need to evaluate for or ganic causes for current mental state Check CMP, TSH, Patient is clinically stable without any SI/HI. SA/FIERRO Refer for BH evaluation. 2023-10-24 right breast pain between 6- 8 o'clock warm compresses tylenol referral for diagnostics completed 2023-11-05 hx of crohns disease, and li rocío mass Referral for GI completed 2023-11-05 Hg1C 5.5 03/28/2023 1) Foot care as instructed; Keep Blood Glucose Log; Exercise; Weight Management; Modify Diet: Low carbohydrates, low- fat, and limit sugar- sweetened beverages 2Patient to continue ozempic 3) Check Labs HA1C, LIPID, CMP today RTO 6 months 2023-11-05 Encourage weight loss, healthy diet, and exercise. 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 She is to continue with Mexloicam and tylenol continue with alternating ice and heat to the area. encourage to wear foot sleeve for support. Referral for podiatry Dr Jose Rowe DPM 2023-11-21 Atrophic vaginitis Send PAP with HPV follow up based on lab results, Patient is scheduled for Mammogram Continue SBE If 50 or greater, schedule colonoscopy or give Heme card. Recommend Ca 2+ and Vitamin D if menopausal Immunizations as age indicated Annual well adult with PCP as indicated Screening labs as indicated 2023-12-03 Sent affirm BV and Yeast disease progression education given Discussed medication usage and side effects Medication sent to the pharmacy Fluconazole , 150 MG Tablet, TAKE 1 TABLET NOW, AND REPEAT IN 4 DAYS. Avoid intercourse until completion of treatment Good hygiene Avoid douching Avoid scented feminine pads Avoid perfume soaps Wear cotton undergarments Return to clinic in 2 weeks if not resolved Patient verbalized understanding of treatment plan 2023-12-31 Underneath panus. Patient to keep the area dry No baby powder or fragrant powder Due to the severe irritation will treat with Clotrimazole-Betamethasone , 1-0.05 % Cream , 15 GM Tube, APPLY SPARINGLY TO THE AFFECTED AREA(S) TWICE DAILY. X 7 days only then due continual care with Nystatin , [id number] UNIT/GM Cream , GM, APPLY 2-3 TIMES DAILY TO AFFECTED AREA(S). RTO PRN 2023-12-31 Patient with well controlled DM - on Ozempic 25mg Qweekly 2023-11-05 HEMOGLOBIN A1c 5.4 % FSBG 58-69 with some symptoms but noted eating only 1-2X day. Recommend discontinuing the Ozempic at this time Encourage to eat healthy meals 3 times a day with small healthy low carb snacks X 2 Patient given signs and symptoms of when to seek emergent care 2023-12-31 associated with FIERRO and gait disturbances. Referral for MRI of brain Follow up s/p results. urine dip Patient given signs and symptoms of when to seek emergent care. 2024-01-13 causing dry eye and no relie f with OTC wetting drops. Referral completed for Ophthalmology Isiah Salazar. 2024-01-20 Left upper chest wall Portac ath - patient is unaware of when it was placed and why it was placed. Referral completed for Joana Salazar 2024-01-20 Patient with well controlled DM Rx Glucometer due to her insurance doesn't cover Ryan Patient continue with current medications. Rx for the gabapentin, meloxicam and baclofen 2023-12-09 At this time no abnormal gai t Will continue to evaluate. Patient to get the information regarding palliative care and Home health. 2023-12-18 erythromycin (0.5 %) 1 appli cation in both eyes every 4 hours for 7 days Medication education given continue to use warm wash cloth to wipe discharge wash hands and surfaces frequently. Recommend for pt to follow up with lead teacher if she continues with symptoms after completion of antibiotic ointment. 2024-01-28 Increase water intake. Flonase Allergy Relief 50mcg/actuation 1 squirt in the nostrils BID Continue OTC cetirizine or loratadine daily. OTC decongestant as needed. Saline nasal irrigation as needed for comfort. 2024-03-09 mupirocin 2% 1 application o n the skin BID RTO if not improved in 1 week or if symptoms worsen. Keep skin clean and dry. Avoid touching/picking at lesion. 2024-03-09 Noted to have left ear cellulitis You can take charge of your health by staying current on well-care visits, screenings, and immunizations. Our goal is to help you live a healthier and happier life through preventive care. Review family medical history. Take a daily multivitamin, exercise and ensure healthy life style modifications, control weight Recommend keeping up on adult vaccinations: TDAP and FLU HIV test one time during adulthood (through age 65) RTO for next WEA in 1 yr 2024-03-11 will start antibioitics for treatment Rx cephalexin 500 mg tablet Take 1 tablet by mouth three times a day warm compresses to the area patient given signs and symptoms of when to seek emergent care 2024-03-11 Alexx Musa [facility]2024-04-08 00:00:00 Plan Activity Marked improvement Severe sc alp lesions with supra infection requiring aggressive treatment Patient to schedule with Derm for more aggressive treatment as prior completed Clinidamycin continue Triamcinolone apply BID Atarax 25 mg `1 tab po Q 4-6 hrs prn itching clobetasol shampoo 0.05% apply to dry scalp daily for up to 4 week. leave shampoo lather on scap x15 min and rinse off f/u if no improvement 2020-06-22 Stelara 90mg SQ every 8 week s given today in clinic per pt request. Rx written by Dr. Levi Tran Patient clinically stable. Continue care with GI as recommended by specialist 2023-12-18 continue present medications ,low salt diet and exercise and lose weight 2020-06-22 Currently stable - No indica tion for further intervention Continue maintenance inhaler steroids and rescue inhaler with Albuterol advised beginning exercises and lose weight continue follow-up specialist 2021-02-07 continue follow-up with [facility] 2021-02-07 RX: Atorvastatin 20 mg 1 tab po QHS LIPIDS AND LFT EVERY 6 MONTHS LOW CHOLESTEROL DIET AND EXERCISE 2021-02-07 advised to go to ER for furt her management advice to follow-up at neurology as soon as possible 2021-02-09 TSH with free T4 2021-03-13 triamcinolone acetonide 0.1% 1 application on the affected skin BID Medication education given Avoid scented soaps and detergents Keep skin moisturized RTO for worsening symptoms 2021-07-11 second of soft shingles vacc ine want to come on 03 January with her mom in the parking lot. requesting TDAP vaccine 2021-12-28 hx of neurological issue sin ce 3 years ago. unsure of diagnosis. Denied eye pain or blurry vision. No facial paralysis on examination recommend to see neurology ER precaution 2022-07-18 rx nystatin ointment oral hygiene. F/U if no improvement 2022-07-18 Healthy Diet and Daily Physical Activity 2022-08-07 Recommend daily physical act ivity including cardiovascular and strengthening exercises. 2022-08-07 Recommend diet high in fruits and vegetables, lean meats, low in fat and processed sugars. Monitor portion sizes. ADA DIET AND PORTION CONTROL AND LOW FAT DIET NO ADDED SALT Recommend diet high in fruits and vegetables, lean meats, low in fat and processed sugars. Monitor portion size 2022-08-07 Possible rebound Covid Bromfed DM for cough prn continue Flonase supportive treatment push fluids ER Precautions given RTO for new or worsening symptoms Quarantine for additional 5 days 2022-08-07 The xray lumbosacral spine a rthritis Baclofen 10 mg daily at bedtime Continue meloxicam PRN only Heating pad when necessary follow-up with the orthopedic 2022-10-10 Patient doing well on curren t medications Follow by orthopedic MD Rx: gabapentin meloxicam 2022-10-10 amoxicillin 503 times a day for 10 days gargle with warm salt water Labs CBC CMP and vitamin B12 levels 2022-11-15 differential diagnosis discussed with patient and be mononeuropathy from the diabetes. She has arthritis of the lumbosacral spine cannot rule out sciatica her gabapentin dose increase in medications helped the patient's pain .She has a scoliosis and inflammation bowel disease can cause myalgia but she says it usually hurts at night. Rx , Rx for the gabapentin, meloxicam and baclofen 2022-11-15 Crohn's disease hypertension hyperlipidemia bipolar disorder other conditions patient continuing diabetic medications right and exercise need to lose weight Ozempic start with .25 mg Q weekly follow with me in one month 2023-01-31 Appears to be viral vs aller gies. No indication for abx at this time. Symptoms controlled on Albuterol and inhaler increase fluids Patient wants cough medications - Bromfed because it doesn't make her feel like the OTC medications. Rx Bromfed 10ml po Q4-6 hrs prn symptoms. 2023-08-28 Due to psoriasis rx: Ciprofloxacin-dexAMETHasone 0.3-0.1 % Otic Suspension - INSTILL 4 DROPS IN THE AFFECTED EAR(S) TWICE DAILY X 7 days nothing in ear. Keep the outside cleaned. 10/16/2023 ADDENDUM: Due to insurance changed to Ginceigb-Gutbzudpe-AO 2-3 gtts po Q4-6 hrs 2023-10-14 Patient with extensive work up for right lower leg pain Based on exam patient with symptoms and signs of Lal splints. Patient to alternate ice and warm compresses to the area, Demonstrated exercises and stretches. Pt requesting an xray - will order lower leg xray RTO based on xray results. 2023-08-15 Recommend warm baths - soak, Take NSAIDS for pain Use soft support with sitting for extended amount of time,. xray for coccyx 2023-09-24 WIll need to evaluate for or ganic causes for current mental state Check CMP, TSH, Patient is clinically stable without any SI/HI. SA/FIERRO Refer for evaluation. 2023-10-24 right breast pain between 6- 8 o'clock warm compresses tylenol referral for diagnostics completed 2023-11-05 hx of crohns disease, and li rocío mass Referral for GI completed 2023-11-05 Hg1C 5.5 03/28/2023 1) Foot care as instructed; Keep Blood Glucose Log; Exercise; Weight Management; Modify Diet: Low carbohydrates, low- fat, and limit sugar- sweetened beverages 2Patient to continue ozempic 3) Check Labs HA1C, LIPID, CMP today RTO 6 months 2023-11-05 Encourage weight loss, healthy diet, and exercise. 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 She is to continue with Mexloicam and tylenol continue with alternating ice and heat to the area. encourage to wear foot sleeve for support. Referral for podiatry Dr Jose Rowe DPM 2023-11-21 Atrophic vaginitis Send PAP with HPV follow up based on lab results, Patient is scheduled for Mammogram Continue SBE If 50 or greater, schedule colonoscopy or give Heme card. Recommend Ca 2+ and Vitamin D if menopausal Immunizations as age indicated Annual well adult with PCP as indicated Screening labs as indicated 2023-12-03 Sent affirm BV and Yeast disease progression education given Discussed medication usage and side effects Medication sent to the pharmacy Fluconazole , 150 MG Tablet, TAKE 1 TABLET NOW, AND REPEAT IN 4 DAYS. Avoid intercourse until completion of treatment Good hygiene Avoid douching Avoid scented feminine pads Avoid perfume soaps Wear cotton undergarments Return to clinic in 2 weeks if not resolved Patient verbalized understanding of treatment plan 2023-12-31 Underneath panus. Patient to keep the area dry No baby powder or fragrant powder Due to the severe irritation will treat with Clotrimazole-Betamethasone , 1-0.05 % Cream , 15 GM Tube, APPLY SPARINGLY TO THE AFFECTED AREA(S) TWICE DAILY. X 7 days only then due continual care with Nystatin , 404713 UNIT/GM Cream , GM, APPLY 2-3 TIMES DAILY TO AFFECTED AREA(S). RTO PRN 2023-12-31 Patient with well controlled DM - on Ozempic 25mg Qweekly 2023-11-05 HEMOGLOBIN A1c 5.4 % FSBG 58-69 with some symptoms but noted eating only 1-2X day. Recommend discontinuing the Ozempic at this time Encourage to eat healthy meals 3 times a day with small healthy low carb snacks X 2 Patient given signs and symptoms of when to seek emergent care 2023-12-31 associated with FIERRO and gait disturbances. Referral for MRI of brain Follow up s/p results. urine dip Patient given signs and symptoms of when to seek emergent care. 2024-01-13 causing dry eye and no relie f with OTC wetting drops. Referral completed for Ophthalmology Isiah Salazar. 2024-01-20 Left upper chest wall Portac ath - patient is unaware of when it was placed and why it was placed. Referral completed for Joana Salazar 2024-01-20 Patient with well controlled DM Rx Glucometer due to her insurance doesn't cover Ryan Patient continue with current medications. Rx for the gabapentin, meloxicam and baclofen 2023-12-09 At this time no abnormal gai t Will continue to evaluate. Patient to get the information regarding palliative care and Home health. 2023-12-18 erythromycin (0.5 %) 1 appli cation in both eyes every 4 hours for 7 days Medication education given continue to use warm wash cloth to wipe discharge wash hands and surfaces frequently. Recommend for pt to follow up with lead teacher if she continues with symptoms after completion of antibiotic ointment. 2024-01-28 Increase water intake. Flonase Allergy Relief 50mcg/actuation 1 squirt in the nostrils BID Continue OTC cetirizine or loratadine daily. OTC decongestant as needed. Saline nasal irrigation as needed for comfort. 2024-03-09 mupirocin 2% 1 application o n the skin BID RTO if not improved in 1 week or if symptoms worsen. Keep skin clean and dry. Avoid touching/picking at lesion. 2024-03-09 Noted to have left ear cellulitis You can take charge of your health by staying current on well-care visits, screenings, and immunizations. Our goal is to help you live a healthier and happier life through preventive care. Review family medical history. Take a daily multivitamin, exercise and ensure healthy life style modifications, control weight Recommend keeping up on adult vaccinations: TDAP and FLU HIV test one time during adulthood (through age 64) RTO for next WEA in 1 yr 2024-03-11 will start antibioitics for treatment Rx cephalexin 500 mg tablet Take 1 tablet by mouth three times a day warm compresses to the area patient given signs and symptoms of when to seek emergent care 2024-03-11 Alexx Mendoza [facility]
[2024-06-26] MEDS ORDERED: KETOROLAC 30 MG/ML INJ ONE (01:35)
[2024-06-26] MEDS ORDERED: ACETAMINOPHEN 500 MG TAB ONE (01:35)
[2024-06-26] MEDS ORDERED: METOCLOPRAMIDE 5 MG TAB ONE (01:35)
--- NOTE | 2024-06-26 03:11 | ER ---
Nurse's Notes [facility] Name: Elizabeth Garcia Age: 54 yrs Sex: Female : 1970 Arrival Date: 06/26/2024 Time: 01:05 Bed 17 Private MD: Diagnosis: Headache Presentation: 06/26 01:10 Chief complaint: EMS states: head pain that started yesterday morning. Coronavirus cp4 screen: Client denies travel out of the [place] in the last 14 days. At this time, the client does not indicate any symptoms associated with coronavirus-19. Ebola Screen: Patient negative for fever greater than or equal to 101.5 degrees Fahrenheit, and additional compatible Ebola Virus Disease symptoms Patient denies exposure to infectious person. Patient denies travel to an Ebola-affected area in the 21 days before illness onset. No symptoms or risks identified at this time. Initial Sepsis Screen: Does the patient meet any 2 criteria? No. Patient's initial sepsis screen is negative. Does the patient have a suspected source of infection? No. Patient's initial sepsis screen is negative. Risk Assessment: Do you want to hurt yourself or someone else? Patient reports no desire to harm self or others. Onset of symptoms was June 2024. 01:10 Method Of Arrival: EMS: [facility] cp4 01:10 Acuity: RAZA 3 cp4 Triage Assessment: 01:13 General: Appears in no apparent distress. uncomfortable, Behavior is calm, cooperative, cp4 appropriate for age. Pain: Complains of pain in head Pain currently is 7 out of 10 on a pain scale. EENT: Parent/caregiver reports the patient having recent diagnoses of eye infection.. Neuro: Level of Consciousness is awake, alert, obeys commands. Neuro: Oriented to person, place, time, situation. Cardiovascular: No deficits noted. Respiratory: No deficits noted. GI: No deficits noted. : No deficits noted. Derm: No deficits noted. Musculoskeletal: No deficits noted. 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 - Infectious Disease History:: Denies. - Social history:: Smoking status: Patient denies any tobacco usage or history of. Screenin:15 [facility] ED Fall Risk Assessment (Adult) History of falling in the last 3 months, cp4 including since admission No falls in past 3 months (0 pts) Confusion or Disorientation No (0 pts) Intoxicated or Sedated No (0 pts) Impaired Gait No (0 pts) Mobility Assist Device Used No (0 pt) Altered Elimination No (0 pt) Score/Fall Risk Level 0 - 2 = Low Risk Oriented to surroundings, Maintained a safe environment, Assessed \T\ reinforced patient's understanding of fall precautions, Hourly rounding (assess needs \T\ fall precautionary measures) done. Abuse screen: Denies threats or abuse. Nutritional screening: No deficits noted. Tuberculosis screening: No symptoms or risk factors identified. Assessment: 01:15 Reassessment: No changes from previously documented assessment. cp4 Vital Signs: 01:10 BP 114 / 60; Pulse 53; Resp 16; Temp 98; Pulse Ox 97% ; cp4 02:00 BP 119 / 57; Pulse 53; Resp 16; Pulse Ox 95% ; cp4 03:23 BP 101 / 55; Pulse 47; Resp 16; Temp 98; Pulse Ox 96% ; cp4 ED Course: 01:07 Patient arrived in ED. rv1 01:10 Savanah Castle is Primary Nurse. cp4 01:12 Zcah Agosto MD is Attending Physician. ec2 01:13 Triage completed. cp4 01:13 Arm band placed on right wrist. Patient placed in an exam room, on a stretcher. cp4 01:15 Bed in low position. Call light in reach. Side rails up X2. cp4 01:52 CT Head Brain wo Cont In Process Unspecified. EDMS 03:25 Provided Education on: headache. cp4 03:25 No provider procedures requiring assistance completed. Patient did not have IV access cp4 during this emergency room visit. Administered Medications: 01:41 Drug: MetoCLOPramide PO 10 mg PO once Route: PO; cp4 03:25 Follow up: Response: No adverse reaction cp4 01:42 Drug: Acetaminophen PO 1000 mg PO once Route: PO; cp4 03:26 Follow up: Response: No adverse reaction cp4 01:42 Drug: Ketorolac IM 30 mg IM once Route: IM; Site: right ventrogluteal; cp4 03:26 Follow up: Response: No adverse reaction cp4 Medication: 01:15 VIS not applicable for this client. cp4 Outcome: 03:10 Discharge ordered by . ec2 03:25 Discharged to home ambulatory, cp4 03:25 Condition: stable 03:25 Discharge instructions given to patient, Instructed on discharge instructions, follow up and referral plans. medication usage, Demonstrated understanding of instructions, follow-up care, medications, Prescriptions given X 2, 03:26 Patient left the ED. cp4 Signatures: Dispatcher [employer] Luanne Avalos rvZach Rivero MD MD ec2 Savanah Castle cp4
--- NOTE | 2024-06-26 03:11 | EDPHYS ---
Physician Documentation [facility] Name: Elizabeth Garcia Age: 54 yrs Sex: Female : 1970 Arrival Date: 06/26/2024 Time: 01:05 Bed 17 Private MD: ED Physician Zach Agosto HPI: 06/26 01:30 This 54 yrs old Female presents to ER via EMS with complaints of headache. ec2 01:30 Patient arrives today for evaluation of a headache. Patient reports that she been ec2 having headache for several days, no specific alleviating or assessment factors, taking Excedrin with some improvement in symptoms. No significant nausea or vomiting, no diarrhea symptoms. No cough or cold symptoms.. 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 - Infectious Disease History:: Denies. - Social history:: Smoking status: Patient denies any tobacco usage or history of. ROS: 01:30 Constitutional: as per hpi ec2 Exam: 01:30 Constitutional: GEN: NAD Head: atraumatic Eyes: EOMI Ears: External ears are ec2 normal. CV: regular rate LUNGS: no respiratory distress ABD: non-distended SKIN: no evidence of rashes MSK: no evidence of trauma NEURO: moves all extremities equally, cranial nerves II through XII intact, strength intact all 4 extremities. Vital Signs: 01:10 BP 114 / 60; Pulse 53; Resp 16; Temp 98; Pulse Ox 97% ; cp4 02:00 BP 119 / 57; Pulse 53; Resp 16; Pulse Ox 95% ; cp4 03:23 BP 101 / 55; Pulse 47; Resp 16; Temp 98; Pulse Ox 96% ; cp4 MDM: 01:23 Patient medically screened. ec2 01:30 Data reviewed: vital signs. ED course: Patient arrives today for evaluation of a ec2 headache. Examination remarkable for well-appearing nontoxic individuals otherwise in no acute distress with a intact neurologic examination. Will obtain CT scan of the head as well as give the patient medications. No other processes intracranial masses, brain bleed. Additionally considering nonspecific headache syndrome.. 03:10 ED course: CT scan of the head shows no acute intracranial process. Will discharge ec2 home. Turn precautions given.. 06/26 01:29 Order name: CT Head Brain wo Cont ec2 Administered Medications: 01:41 Drug: MetoCLOPramide PO 10 mg PO once Route: PO; cp4 03:25 Follow up: Response: No adverse reaction cp4 01:42 Drug: Acetaminophen PO 1000 mg PO once Route: PO; cp4 03:26 Follow up: Response: No adverse reaction cp4 01:42 Drug: Ketorolac IM 30 mg IM once Route: IM; Site: right ventrogluteal; cp4 03:26 Follow up: Response: No adverse reaction cp4 Disposition Summary: 06/26/24 03:10 Discharge Ordered Notes: Location: Home ec2 Condition: Stable ec2 Diagnosis - Headache ec2 Followup: ec2 - With: Private Physician - When: - Reason: Re-evaluation by your physician Discharge Instructions: - Discharge Summary Sheet ec2 - General Headache Without Cause ec2 Forms: - Medication Reconciliation Form ec2 - Antibiotic Education ec2 - Prescription Opioid Use ec2 - Patient Portal Instructions ec2 - Leadership Thank You Letter ec2 Prescriptions: - bacitracin 500 unit/gram Topical ointment - apply 1 application TOPICAL route 2 times per day; 28.4 gram tube; Refills: 0, ec2 Product Selection Permitted - Compazine 10 mg Oral Tablet - take 1 tablet ORAL route every 8 hours As needed; 20 tablet; Refills: 0, ec2 Product Selection Permitted Signatures: Dispatcher [employer] EDZach Obregon MD MD ec2 Savanah Castle cp4 Corrections: (The following items were deleted from the chart) 01: 01:29 Head Brain Wo [id number] ordered. EDMS EDMS
[2024-06-26 04:38] VITALS: TEMP 98
[2024-06-26 04:42] VITALS: BP 101/55; O2SAT 96
--- NOTE | 2024-06-27 18:17 | RAD REPORT ---
EXAM DESCRIPTION: CT - Head Brain Wo Cont - 06/26/2024 1:50 am CLINICAL HISTORY: Headache. TECHNIQUE: Axial computed tomography images of the head/brain without intravenous contrast. Sagitt al and coronal reformatted images were created and reviewed. This CT exam was performed using one o r more of the following dose reduction techniques: automated exposure control, adjustment of the mA and/or kV according to patient size, and/or use of iterative reconstruction technique. COMPARISON: Correlation is made with report only from CT Head 01/14/2024. FINDINGS: Brain: Unremarkable. No hemorrhage. No significant white matter disease. No edema. Ventricles: Unremarkable. No ventriculomegaly. Bones/joints: Unremarkable. No acute fracture. Soft tissues: Unremarkable. Sinuses: Unremarkable as visualized. No acute sinusitis. Mastoid air cells: Unremarkable as visualized. No mastoid effusion. IMPRESSION: No acute intracranial or extra-axial abnormality. Electronically signed by: Eric Tapia MD 06/26/2024 03:05 AM CDT Due to temporary technical issues with the PACS/Fluency reporting system, reports are being signed by the in house radiologists without review as a courtesy to insure prompt reporting. The interpreting radiologist is fully responsible for the content of the report.
== END 2024-06-26 03:26 | disposition home or self-care (01) ==
LOC: ER 01:05
DX: R51.9 Headache, unspecified (principal); I10 Essential (primary) hypertension; E11.9 Type 2 diabetes mellitus without complications
CPT/HCPCS: 70450; 96372; 99284

== ENCOUNTER 2024-11-24 20:36 | Emergency (ER) | payer OTHER ==
--- OUTSIDE RECORDS SUMMARY | 2024-11-24 20:49 | XMS REPORT | Continuity of Care Document ---
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 00:00: 00 03-24 00:00 :00 No 75 Alexx Soliman Reji TAKE 1 CAPSULE 3 TIMES DAILY. 04-15 00:00: 00 03-24 00:00 :00 No 300 Alexx Soliman Reji TAKE 1 TABLET DAILY. 04-15 00:00: 00 03-24 00:00 :00 No 20 Alexx Janny Reji BUPROPION HYDROCHLORI DE ER (SR) 150 MG TB12 04-02 00:00: 00 03-24 00:00 :00 Ashley Alexx Janny Reji TAKE ONE (1) CAPSULE(S) BY MOUTH FOUR TIMES A DAY NEEDED. 04-02 00:00: 00 03-24 00:00 :00 Ashley Mendoza TOPIRAMATE 100 MG TABS 16 00:00: 00 03-24 00:00 :00 Ashley Mendoza FLUOXETINE HCL 20 MG 04-02 00:00: 00 03-24 00:00 :00 Ashley Mendoza TAKE ONE (1) TABLET(S) BY MOUTH AT BEDTIME. 04-02 00:00: 00 03-24 00:00 :00 Ashley Mendoza NEOMYCIN/PO LYMYXIN/DEX AMETHASONE 3.5-05560-7 .1 SUSP 04-01 00:00: 00 03-24 00:00 :00 No Alexx Mendoza MUPIROCIN 2 % OINT 03-27 00:00: 00 03-24 00:00 :00 Ashley Mendoza CIPROFLOXAC IN HYDROCHLORI DE 0.3 % SOLN 03-23 00:00: 00 03-24 00:00 :00 Ashley Mendoza PREDNISOLON E ACETATE 1 % SUSP 03-15 00:00: 00 03-24 00:00 :00 Ashley Mendoza APPLY TO RIGHT EYELID TWICE DAILY FOR 2 WEEKS. 03-15 00:00: 00 03-24 00:00 :00 Ashley Mendoza MONTELUKAST SODIUM 10 MG TABS 20 00:00: 00 03-24 00:00 :00 Ashley Mendoza XIFAXAN 550 MG TABS 22 00:00: 00 03-24 00:00 :00 Ashley Mendoza TAKE 1 TABLET DAILY. 16 00:00: 00 03-24 00:00 :00 No 75 Alexx Mendoza TAKE 1 CAPSULE 3 TIMES DAILY. 01-31 00:00: 00 03-24 00:00 :00 No 300 Alexx Mendoza TAKE 1 AT BEDTIME -16 00:00: 00 03-24 00:00 :00 No 10 Alexx Mendoza TAKE 1 TABLET DAILY. 01-31 00:00: 00 03-24 00:00 :00 No 20 Alexx Mendoza IBUPROFEN 600 MG TABS 3-10 00:00: 00 03-24 00:00 :00 Ashley Mendoza TAKE 1 CAPSULE 3 TIMES A DAY UNTIL ALL ARE TAKEN. TAKE WITH FOOD DRINK PLENTY OF WATER. 3- 00:00: 00 03-24 00:00 :00 No Alexx Mendoza DICYCLOMINE HYDROCHLORI DE 20 MG TABS - 00:00: 00 03-24 00:00 :00 No Alexx Mendoza OMEPRAZOLE 40 MG CPDR - 00:00: 00 03-24 00:00 :00 No 40 [...] Ashley Mendoza CLOBETASOL PROPIONATE 0.05 % CREA 2- 00:00: 00 03-24 00:00 :00 Ashley Mendoza TAKE ONE (1) TABLET(S) BY MOUTH TWICE A DAY. 2- 00:00: 00 03-24 00:00 :00 Ashley Mendoza TAKE ONE (1) TABLET(S) BY MOUTH AT BEDTIME. 2- 00:00: 00 03-24 00:00 :00 Ashley Mendoza TOPIRAMATE 100 MG TABS 2-22 00:00: 00 03-24 00:00 :00 Ashley Mendoza FLUOXETINE HCL 20 MG 2-21 00:00: 00 03-24 00:00 :00 Ashley Mendoza TAKE ONE (1) CAPSULE(S) BY MOUTH FOUR TIMES A DAY NEEDED. 2-21 00:00: 00 03-24 00:00 :00 No Alexx Mendoza AMOXICILLIN 500 MG 2-18 00:00: 00 03-24 00:00 :00 No Alexx Mendoza STELARA 90 MG/ML SOSY 2-16 00:00: 00 03-24 00:00 :00 No Alexx Mendoza NALTREXONE HCL 50 MG TABS 2-15 00:00: 00 03-24 00:00 :00 No Alexx Janny Reji TAMSULOSIN HYDROCHLORI DE 0.4 MG 2- 00:00: 00 03-24 00:00 :00 Ashley Alexx Janny Reji TAKE 1 TABLET BY MOUTH TWICE A DAY NEEDED 2- 00:00: 00 03-24 00:00 :00 Ashley Mendoza ONDANSETRON ODT 4 MG TBDP 2-07 00:00: 00 03-24 00:00 :00 No Alexx Mendoza NEOMYCIN/PO LYMYXIN/DEX AMETHASONE 3.5-96991-6 .1 OINT 2-06 00:00: 00 03-24 00:00 :00 Ashley Mendoza AMLODIPINE BESYLATE 2.5 MG TABS 1-02 00:00: 00 03-24 00:00 :00 Ashley Mendoza HYDROCHLORO THIAZIDE 12.5 MG 1-02 00:00: 00 03-24 00:00 :00 Ashley Mendoza AZITHROMYCI N 500 MG TABS 2021-11 2- 00:00: 00 03-24 00:00 :00 Ashley Mendoza PREDNISONE 10 MG TABS 2021-11 2-27 00:00: 00 03-24 00:00 :00 Ashley Mendoza NALTREXONE HCL 50 MG TABS 2021-11 2-24 00:00: 00 03-24 00:00 :00 No 50 Alexx Mendoza BACLOFEN 10 MG TABS 2021-11 2-21 00:00: 00 03-24 00:00 :00 No Alexx Mendoza MONTELUKAST SODIUM 10 MG TABS 2021-11 2-20 00:00: 00 03-24 00:00 :00 No Alexx Mendoza SIMVASTATIN 20 MG TABS 2021-11 00:00: 00 03-24 00:00 :00 No Alexx Mendoza TOPIRAMATE 100 MG TABS 2021-11 00:00: 00 03-24 00:00 :00 No 100 Alexx Mendoza BUPROPION HYDROCHLORI DE ER (SR) 150 MG TB12 2021-11 00:00: 00 03-24 00:00 :00 No Alexx Mendoza AMOXICILLIN /CLAVULANAT E POTASSIUM 500-125 MG TABS 2021-11 00:00: 00 03-24 00:00 :00 No Alexx Mendoza HYDROXYZINE PAMOATE 25 MG 2021-11 00:00: 00 03-24 00:00 :00 No 25 Alexx Mendoza RISPERIDONE 3 MG TABS 2021-11 00:00: 00 03-24 00:00 :00 No Alexx Mendoza FLUOXETINE HYDROCHLORI DE 20 MG 2021-11 00:00: 00 03-24 00:00 :00 No 20 Alexx Mendoza BACLOFEN 10 MG TABS 2021-11 00:00: 00 03-24 00:00 :00 No 10 Alexx Mendoza STELARA 90 MG/ML SOSY 2021-11 00:00: 00 03-24 00:00 :00 No Alexx Mendzoa POLYMYXIN B SULFATE/TRI METHOPRIM GUNN LFATE 08746-2.1 UNIT/ML-% SOLN 2021-11 00:00: 00 03-24 00:00 :00 No Alexx Mendoza PLENVU 140 GM SOLR 2021-11 0-18 00:00: 00 03-24 00:00 :00 Ashley Mendoza TAKE 1 TABLET BY MOUTH EVERY DAY 00:00: 00 03-24 00:00 :00 No Alexx Mendoza LAGEVRIO 200 MG - 00:00: 00 03-24 00:00 :00 No Alexx Mendoza BROMPHEN/PS EUDOEPHEDRI NE HCL/DEXTRO METHORPHAN HBR 30-2-10 MG/5ML SYRP - 00:00: 00 03-24 00:00 :00 No Alexx Mendoza FLUTICASONE PROPIONATE 50 MCG/ACT SUSP 08-06 00:00: 00 03-24 00:00 :00 No Alexx Mendoza NALTREXONE HCL 50 MG TABS 07-25 00:00: 00 03-24 00:00 :00 No Alexx Mendoza FLUOXETINE HYDROCHLORI DE 20 MG - 00:00: 00 03-24 00:00 :00 No Alexx Mendoza ONDANSETRON HYDROCHLORI DE 4 MG TABS - 00:00: 00 03-24 00:00 :00 No Alexx Mendoza OMEPRAZOLE 40 MG CPDR - 00:00: 00 03-24 00:00 :00 No Alexx Mendoza HYDROXYZINE PAMOATE 25 MG - 00:00: 00 03-24 00:00 :00 Ashley Mendoza DICYCLOMINE HYDROCHLORI DE 10 MG - 00:00: 00 03-24 00:00 :00 No Alexx Mendoza BUPROPION HYDROCHLORI DE ER (SR) 150 MG TB12 - 00:00: 00 03-24 00:00 :00 No Alexx Mendoza STELARA 90 MG/ML SOSY - 00:00: 00 03-24 00:00 :00 No Alexx Mendoza CIPROFLOXAC IN HYDROCHLORI DE 500 MG TABS 8-31 00:00: 00 Yes Alexx Mendoza CIPROFLOXAC IN HYDROCHLORI DE 500 MG TABS 8-31 00:00: 00 No CIPROFLOXAC IN HYDROCHLORI DE 500 MG TABS 07-18 00:00: 00 No 500 CIPROFLOXAC IN HYDROCHLORI DE 500 MG TABS 07-18 00:00: 00 No CIPROFLOXAC IN HYDROCHLORI DE 500 MG TABS 07-18 00:00: 00 No POLYMYXIN B SULFATE/TRI METHOPRIM GUNN LFATE 19663-5.1 UNIT/ML-% SOLN 07-18 00:00: 00 03-24 00:00 :00 No Alexx Mendoza NYSTATIN 549678 UNIT/GM CREA 07-18 00:00: 00 03-24 00:00 :00 No Alexx Mendoza CLOBETASOL PROPIONATE 0.05 % SHAM 07-18 00:00: 00 03-24 00:00 :00 No Alexx Mendoza buPROPion SR 150 mg SR tablet 07-04 00:00: 00 Yes [facility] ADVAIR DISKUS 250-50 mcg/dose inhalation disk 07-04 00:00: 00 Yes [facility] meloxicam 15 mg tablet 07-04 00:00: 00 Yes 7.5mg Take 0.5 tablets by mouth in the morning. [facility] risperiDONE 3 mg tablet 07-04 00:00: 00 Yes 4mg Take 4 mg by mouth every evening. [facility] topiramate 100 mg tablet 07-04 00:00: 00 Yes [facility] &lt 2021-0 06-26 00:00: 00 Yes 4 Alexx F Reji &lt 2-0 06-26 00:00: 00 Yes 20 Alexx F Reji &lt 2022-0 06-26 00:00: 00 Yes Alexx F Reji &lt 2-0 06-26 00:00: 00 No 4 &lt 2022-0 - 00:00: 00 No 20 &lt 2022-0 8- 00:00: 00 No &lt 2022-0 8- 00:00: 00 No 4 &lt 2022-0 8-09 00:00: 00 No 20 &lt 2022-0 8-09 00:00: 00 No &lt 2022-0 8-09 00:00: 00 No 4 &lt 2022-0 8-09 00:00: 00 No 20 &lt 2022-0 8-09 00:00: 00 No &lt 2022-0 8-09 00:00: 00 No 4 &lt 2022-0 8-09 00:00: 00 No 20 &lt 2022-0 8-09 00:00: 00 No AMOXICILLIN 500 MG 2-0 8- 00:00: 00 03-24 00:00 :00 No Alexx Janny Reji TAMSULOSIN HYDROCHLORI DE 0.4 MG 2021-0 06-15 00:00: 00 03-24 00:00 :00 No Alexx Soliman Reji CIPROFLOXAC IN HYDROCHLORI DE 500 MG TABS 2021-0 06-15 00:00: 00 03-24 00:00 :00 No Alexx F Reji &lt 2022-0 7- 00:00: 00 Yes Alexx F Reji &lt 2022-0 7- 00:00: 00 No &lt 2022-0 7- 00:00: 00 No &lt 2022-0 7- 00:00: 00 No &lt 2022-0 7- 00:00: 00 No &lt 2022-0 7- 00:00: 00 Yes 3 Alexx F Reji &lt 2022-0 7- 00:00: 00 Yes Alexx F Reji &lt 2022-0 7- 00:00: 00 No 3 &lt 2022-0 7- 00:00: 00 No &lt 2022-0 7- 00:00: 00 No 3 &lt 2022-0 7- 00:00: 00 No &lt 2022-0 7- 00:00: 00 No 3 &lt 2022-0 7- 00:00: 00 No &lt 2022-0 7- 00:00: 00 No 3 &lt 2022-0 7- 00:00: 00 No &lt 2022-0 6- 00:00: 00 Yes Alexx F Reji &lt 2022-0 6- 00:00: 00 No &lt 2022-0 05-14 00:00: 00 No &lt 2022-0 05-14 00:00: 00 No &lt 2022-0 05-14 00:00: 00 No ADV DISKUS 250-50 MCG/ACT AEPB 0 05-14 00:00: 00 03-24 00:00 :00 No Alexx Mendoza COMBIVENT RESPIMAT 20-100 MCG/ACT AERS 0 05-14 00:00: 00 03-24 00:00 :00 No Alexx Mendoza CIPROFLOXAC IN HYDROCHLORI DE 500 MG TABS 05-07 00:00: 00 03-24 00:00 :00 No Alexx Mendoza gabapentin 100 mg capsule 0 05-01 00:00: 00 Yes [id number] 100mg Take 1 capsule by mouth 3 (three) times daily. [facility] GABAPENTIN 100 MG 0 05-01 00:00: 00 03-24 00:00 :00 No Alexx Soliman Reji &lt 2022-0 6- 00:00: 00 Yes Alexx Soliman Reji &lt 2022-0 6- 00:00: 00 Yes Alexx Soliman Reji &lt 2022-0 6- 00:00: 00 No &lt 2022-0 6-08 00:00: 00 No &lt 2022-0 6-08 00:00: 00 No &lt 2022-0 6-08 00:00: 00 No &lt 2022-0 6-08 00:00: 00 No &lt 2022-0 6-08 00:00: 00 No &lt 2022-0 6-08 00:00: 00 No &lt 2022-0 6-08 00:00: 00 No &lt 2022-0 6- 00:00: 00 Yes Alexx Soliman Reji &lt 2022-0 6- 00:00: 00 Yes Alexx Soliman Reji &lt 2022-0 6- 00:00: 00 No &lt 2022-0 6-07 00:00: 00 No &lt 2022-0 6-07 00:00: 00 No &lt 2022-0 6- 00:00: 00 No &lt 2022-0 6-07 00:00: 00 No &lt 04-24 00:00: 00 No &lt 04-24 00:00: 00 No &lt 04-24 00:00: 00 No BUPROPION HYDROCHLORI DE ER (SR) 150 MG TB12 04-24 00:00: 00 03-24 00:00 :00 No Alexx Mendoza TOPIRAMATE 100 MG TABS 04-24 00:00: 00 03-24 00:00 :00 No Alexx Mendoza HYDROXYZINE PAMOATE 25 MG 04-24 00:00: 00 03-24 00:00 :00 No Alexx Mendoza phentermine 15 mg capsule 04-19 00:00: 00 Yes 1{barbu le} Take 1 capsule by mouth every morning. [facility] simvastatin 20 mg tablet 04-18 00:00: 00 Yes [facility] LOTEMAX 0.5 % SUSP 04-17 00:00: 00 03-24 00:00 :00 No Alexx Mendoza FLUOCINOLON E ACETONIDE 0.01 % OIL 04-11 00:00: 00 03-24 00:00 :00 No Alexx Mendoza neomycin-po lymyxin-dex amethasone 3.5 mg/g-10,000 unit/g-0.1 % ophthalmic ointment 03-26 00:00: 00 Yes [facility] NEOMYCIN/PO LYMYXIN/DEX AMETHASONE 3.5-91073-4 .1 SUSP 03-26 00:00: 00 03-24 00:00 :00 No Alexx Mendoza dicyclomine 10 mg capsule 03-24 00:00: 00 Yes 20mg Take 2 capsules by mouth in the morning and 2 capsules at noon and 2 capsules in the evening. [facility] metformin ER 500 mg 24 hr tablet 03-23 00:00: 00 Yes [facility] DICYCLOMINE HYDROCHLORI DE 10 MG 03-23 00:00: 00 03-24 00:00 :00 No Alexx Mendoza OMEPRAZOLE 40 MG CPDR 03-23 00:00: 00 03-24 00:00 :00 No Alexx Mendoza ONDANSETRON ODT 4 MG TBDP 03-23 00:00: 00 03-24 00:00 :00 No Alexx Mendoza STELARA 90 mg/mL SC injection 03-21 00:00: 00 Yes [facility] STELARA 90 MG/ML SOSY 03-06 00:00: 00 03-24 00:00 :00 No Alexx Mendoza NALTREXONE HCL 50 MG TABS 02-22 00:00: 00 03-24 00:00 :00 No Alexx Mendoza simvastatin 20 mg tablet 02-19 00:00: 00 Yes 1mg Alexx Mendoza meloxicam 15 mg tablet 02-19 00:00: 00 Yes 1mg Alexx Mendoza metformin ER 500 mg tablet,exte nded release 24 hr 02-19 00:00: 00 Yes 1mg Alexx Mendoza simvastatin 20 mg tablet 02-19 00:00: 00 No 1mg meloxicam 15 mg tablet 02-19 00:00: 00 No 1mg metformin ER 500 mg tablet,exte nded release 24 hr 02-19 00:00: 00 No 1mg simvastatin 20 mg tablet 02-19 00:00: 00 No 1mg meloxicam 15 mg tablet 02-19 00:00: 00 No 1mg metformin ER 500 mg tablet,exte nded release 24 hr 02-19 00:00: 00 No 1mg simvastatin 20 mg tablet 02-19 00:00: 00 No 1mg meloxicam 15 mg tablet 02-19 00:00: 00 No 1mg metformin ER 500 mg tablet,exte nded release 24 hr 02-19 00:00: 00 No 1mg simvastatin 20 mg tablet - 00:00: 00 No 1mg meloxicam 15 mg tablet 2-0 4- 00:00: 00 No 1mg metformin ER 500 mg tablet,exte nded release 24 hr 2021-0 4- 00:00: 00 No 1mg HYDROXYZINE PAMOATE 25 MG 2-0 3-15 00:00: 00 03-24 00:00 :00 No Alexx F Reji TOPIRAMATE 100 MG TABS 2-0 3-15 00:00: 00 03-24 00:00 :00 No Alexx F Reji RISPERIDONE 3 MG TABS 2-0 3-15 00:00: 00 03-24 00:00 :00 No Alexx F Reji Dose Unknown 2022-0 3-09 [...] Reji Dose Unknown 2022-0 3-09 00:00: 00 No [...] 3-09 00:00: 00 No Dose Unknown 2022-0 3- 00:00: 00 No Dose Unknown 0 3- 00:00: 00 No Dose Unknown 0 3- 00:00: 00 No Dose Unknown 0 3- 00:00: 00 No Dose Unknown 0 3- 00:00: 00 No Dose Unknown 0 3- 00:00: 00 No Dose Unknown 0 3- 00:00: 00 No Dose Unknown 0 3- 00:00: 00 No Dose Unknown 0 3 00:00: 00 No Dose Unknown 0 3 00:00: 00 No Dose Unknown 0 3 00:00: 00 No Dose Unknown 0 3 00:00: 00 No OMEPRAZOLE 40 MG CPDR 2- 00:00: 00 03-24 00:00 :00 No Alexx Mendoza tiotropium 18 mcg inhalation 11-30 00:00: 00 Yes [id number] 18ug Inhale 1 capsule daily. [facility] albuterol 90 mcg/actuati on inhaler 11-30 00:00: 00 Yes [id number] 2{puff} Inhale 2 Puffs every 6 (six) hours as needed for Wheezing or Shortness of Breath. [facility] simvastatin 20 mg tablet 2020-11 00:00: 00 Yes 1mg Alexx Mendoza simvastatin 20 mg tablet 2020-11 00:00: 00 No 1mg simvastatin 20 mg tablet 2020-11 00:00: 00 No 1mg simvastatin 20 mg tablet 2020-11 00:00: 00 No 1mg simvastatin 20 mg tablet 2020-11 00:00: 00 No 1mg meloxicam 15 mg tablet 2020-11 00:00: 00 Yes 1mg Alexx Mendoza metformin ER 500 mg tablet,exte nded release 24 hr 2020-11 00:00: 00 Yes 1mg Alexx Mendoza meloxicam 15 mg tablet 2020-11 00:00: 00 No 1mg metformin ER 500 mg tablet,exte nded release 24 hr 2020-11 0 00:00: 00 No 1mg meloxicam 15 mg [...] 00:00: 00 No 1mg MELOXICAM ORAL 2020-11 0 13:28: 42 Yes Take by mouth. [facility] Halobetasol Propionate 0.05 % ointment 08-10 00:00: 00 Yes [id number] Apply to area(s) 2 (two) times daily. [facility] clobetasoL 0.05 % external solution 08-10 00:00: 00 Yes [id number] Apply to area(s) 2 (two) times daily. For scalp [facility] hydrocortis one 2.5 % topical cream 07-12 00:00: 00 Yes 1% Alexx Mendoza hydrocortis one 2.5 % topical cream 07-12 00:00: 00 No 1% hydrocortis one 2.5 % topical cream 07-12 00:00: 00 No 1% hydrocortis one 2.5 % topical cream 07-12 00:00: 00 No 1% hydrocortis one 2.5 % topical cream 07-12 00:00: 00 No 1% clobetasoL 0.05 % cream 05-18 00:00: 00 Yes [id number] Apply to area(s) 2 (two) times daily. Apply to scalp, ears and buttocks (avoid creases) [facility] ketoconazol e 2 % cream 05-18 00:00: 00 Yes [id number] Apply to area(s) 2 (two) times daily. Apply to creases with tacrolimus (Protopic) [facility] hydrOXYzine 25 mg tablet 05-18 00:00: 00 Yes [id number] 25mg Take 1 tablet by mouth at bedtime as needed for Itching. [facility] ciprofloxac in-dexameth asone 0.3-0.1 % otic drops - 00:00: 00 Yes [id number] 2[drp] Place 2 Drops in both ears 2 (two) times daily. [facility] ondansetron 4 mg disintegrat ing tablet - 00:00: 00 Yes [facility] omeprazole 40 mg capsule 5- 00:00: 00 Yes [facility] hydroxyzine pamoate 25 mg capsule - 00:00: 00 Yes 1mg Alexx F Reji hydroxyzine pamoate 25 mg capsule 4- 00:00: 00 No 1mg hydroxyzine pamoate 25 mg capsule 4- 00:00: 00 No 1mg hydroxyzine pamoate 25 mg capsule 4- 00:00: 00 No 1mg hydroxyzine pamoate 25 mg capsule 4- 00:00: 00 No 1mg metformin ER 500 mg tablet,exte nded release 24 hr 4- 00:00: 00 Yes 1mg Alexx F Reji metformin ER 500 mg tablet,exte nded release 24 hr 4-22 00:00: 00 No 1mg metformin ER 500 mg tablet,exte nded release 24 hr 4- 00:00: 00 No 1mg metformin ER 500 mg tablet,exte nded release 24 hr 4- 00:00: 00 No 1mg metformin ER 500 mg tablet,exte nded release 24 hr 4-22 00:00: 00 No 1mg amlodipine 5 mg tablet 4- 00:00: 00 No 1mg simvastatin 20 mg tablet 4- 00:00: 00 No 1mg metformin 500 mg [...] 02-07 00:00: 00 Yes 1(1.5 mL) Alexx Soliman Reji hydrocortis one 2.5 % cream 12-12 00:00: 00 Yes Apply to affected area(s) 2 (two) times daily. [facility] erythromyci n 5 mg/gram (0.5 %) ophthalmic ointment 11-24 00:00: 00 Yes Apply to right eye every 6 (six) hours [facility] doxycycline monohydrate 100 mg tablet 06-22 00:00: [...] Yes 1% Alexx Mendoza nystatin-tr iamcinolone cream 05-04 00:00: 00 Yes [id number] Apply to area(s) 2 (two) times daily. [facility] mometasone 0.1 % lotion 17 00:00: 00 Yes [id number] Apply to area(s) 2 (two) times daily. [facility] mometasone 0.1 % lotion 06 00:00: 00 Yes [id number] Apply to area(s) daily. [facility] ciprofloxac in-dexameth asone 0.3-0.1 % otic drops 2-26 00:00: 00 Yes [id number] 2[drp] Place 2 Drops in both ears 2 (two) times daily. [facility] Clobetasol Propionate 0.05 % shampoo 212 00:00: 00 Yes [id number] Apply to area(s) 2 (two) times daily. [facility] Fluocinolon e Acetonide Oil (DERMOTIC OIL) 0.01 % otic drops 12-30 00:00: 00 Yes [id number] 1[drp] Place 1 Drop in each ear 2 (two) times daily. [facility] FLUoxetine (PROZAC) 20 mg capsule 2018-11 12:18: 35 Yes 60mg Take 60 mg by mouth daily. [facility] topiramate (TOPAMAX) 50 mg tablet 2018-11 12:18: 35 Yes 50mg Take 50 mg by mouth 2 (two) times daily. [facility] Cholecalcif abhijeet, Vitamin D3, (VITAMIN D3) 2,000 unit tablet 2018-11 12:18: 35 Yes Take by mouth. [facility] fluticasone -vilanterol (BREO ELLIPTA) 100-25 mcg/dose DsDv 2018-11 12:18: 35 Yes Inhale. [facility] MELOXICAM ORAL 2018-11 12:18: 35 Yes Take by mouth. [facility] fluocinonid e 0.05 % ointment 2018-11 00:00: 00 Yes [id number] Apply to area(s) 2 (two) times daily. [facility] Kenalog (Triamcinol one) Kenalog (Triamcinol one) 2018-11 00:00: 00 No 40mg [facility] Dexamethaso ne Dexamethaso ne 2018-11 00:00: 00 No 10mg [facility] Kenalog (Triamcinol one) Kenalog (Triamcinol one) 2018-11 00:00: 00 No 40mg [facility] Dexamethaso ne Dexamethaso ne 2018-11 00:00: 00 No 10mg [facility] Kenalog (Triamcinol one) Kenalog (Triamcinol one) 2018-11 00:00: 00 No 40mg [facility] Dexamethaso ne Dexamethaso ne 2018-11 00:00: 00 No 10mg [facility] Kenalog (Triamcinol one) Kenalog (Triamcinol one) 2018-11 017 00:00: 00 No 40mg [facility] Dexamethaso ne Dexamethaso ne 2018-1117 00:00: 00 No 10mg [facility] polymyxin B sulf-trimet hoprim 10,000 unit- 1 mg/mL ophthalmic drops 9-10 00:00: 00 Yes PUT 1 DROP INTO AFFECTED EYE 4 TIMES DAILY FOR 5 DAYS [facility] terbinafine HCl 250 mg tablet 8 00:00: 00 Yes [id number] 250mg Take 1 tablet by mouth daily. [facility] hydrOXYzine 25 mg tablet 06-03 00:00: 00 Yes TAKE 1 TABLET BY MOUTH EVERY 8 HOURS NEEDED MAY MAKE DROWSY [facility] Kenalog (Triamcinol one) Kenalog (Triamcinol one) 01-23 00:00: 00 No 40mg [facility] Dexamethaso ne Dexamethaso ne 08 00:00: 00 No 10mg [facility] Kenalog (Triamcinol one) Kenalog (Triamcinol one) 08 00:00: 00 No 40mg [facility] Dexamethaso ne Dexamethaso ne 08 00:00: 00 No 10mg [facility] Kenalog (Triamcinol one) Kenalog (Triamcinol one) 08 00:00: 00 No 40mg [facility] Dexamethaso ne Dexamethaso ne 08 00:00: 00 No 10mg [facility] Kenalog (Triamcinol one) Kenalog (Triamcinol one) 08 00:00: 00 No 40mg [facility] Dexamethaso ne Dexamethaso ne 08 00:00: 00 No 10mg [facility] risperiDONE 1 mg tablet 02-23 00:00: 00 Yes TAKE 2 TABLETS BY MOUTH AT BEDTIME MAY MAKE DROWSY [facility] PENTASA 500 MG ORAL CPSR 2008-11 00:00: 00 Yes [id number] None Entered [facility] Dicyclomine HCl 20 MG Dicyclomine HCl 20 MG No 1{table t} TID Dicyclomin e HCl 20 MG hydrOXYzine Pamoate 25 mg hydrOXYzine Pamoate 25 [...] 1{table t} QD Aspirin 81 81 MG ZyrTEC Allergy 10 MG ZyrTEC Allergy 10 MG No 1{table t} QD ZyrTEC Allergy 10 MG Ondansetron HCl 4 MG Ondansetron HCl [...] 20 MG Simvastatin 20 MG No 1{table t_in_ e_eveni ng} QD Simvastati n 20 MG [...] t} QD Ondansetro n HCl 4 MG Immunizations Ordered Immunization Name Filled Immunization Name Date Status Comments Source influenza, injectable influenza, injectable 2023-08-13 00:00:00 Completed Alexx Mendoza Influenza, seasonal, inj Influenza, seasonal, inj 2023-08-13 00:00:00 Completed Alexx Mendoza (Old) Moderna COVID-19 Vaccine Bivalent Booster for ages 6 + years (18+, 12-17, 6-11) (Old) Moderna COVID-19 Vaccine Bivalent Booster for ages 6 + years (18+, 12-17, 6-11) 2022-10-22 00:00:00 Completed Alexx Mendoza Influenza, injectable, Madin Kelsea Canine Kidney, preservative-free, quadrivalent 2022-08-27 00:00:00 Completed Influenza, injectable, Madin [facility] Canine Kidney, preservative-free, quadrivalent 2022-08-27 00:00:00 Completed Influenza, injectable, Madin [facility] Canine Kidney, preservative-free, quadrivalent 2022-08-27 00:00:00 Completed Influenza, injectable, Madin Kelsea Canine Kidney, preservative-free, quadrivalent 2022-08-27 00:00:00 Completed Influenza, injectable, Madin [facility] Canine Kidney, preservative-free, quadrivalent Influenza, injectable, Madin [place] Canine Kidney, preservative-free, quadrivalent 2022-08-27 00:00:00 Completed Alexx Mendoza Moderna COVID-19 Vaccine 2022-04-25 00:00:00 Completed Moderna COVID-19 Vaccine 2022-04-25 00:00:00 Completed Moderna COVID-19 Vaccine 2022-04-25 00:00:00 Completed Moderna COVID-19 Vaccine 2022-04-25 00:00:00 Completed Moderna COVID-19 Vaccine 2022-04-25 00:00:00 Completed Moderna COVID-19 Vaccine 2022-04-25 00:00:00 Completed Moderna COVID-19 Vaccine Moderna COVID-19 Vaccine 2022-04-25 00:00:00 Completed Alexx Mendoza SARS-COV-2 COVID-19 MODERNA 0.5ML BOOSTER VACCINE 2022-04-25 00:00:00 Completed [facility] SARS-COV-2 COVID-19 MODERNA 0.5ML BOOSTER VACCINE 2022-04-25 00:00:00 [facility] [facility] SARS-COV-2 COVID-19 MODERNA 0.5ML BOOSTER VACCINE 2022-04-25 00:00:00 Completed Tdap 2022-04-24 00:00:00 Completed Tdap 2022-04-24 00:00:00 Completed Tdap 2022-04-24 00:00:00 Completed Tdap 2022-04-24 00:00:00 Completed Tdap 2022-04-24 00:00:00 Completed Tdap 2022-04-24 00:00:00 Completed Tdap Tdap 2022-04-24 00:00:00 Completed Alexx Janny Mendoza Td 2022-04-24 00:00:00 Completed [facility] TD, NOS 2022-04-24 00:00:00 Completed [facility] TD, NOS 2022-04-24 00:00:00 Completed Pneumococcal conjugate P 2021-10-30 00:00:00 Completed Pneumococcal conjugate P 2021-10-30 00:00:00 Completed Pneumococcal conjugate P 2021-10-30 00:00:00 Completed Pneumococcal conjugate P 2021-10-30 00:00:00 Completed Pneumococcal conjugate P 2021-10-30 00:00:00 Completed Pneumococcal conjugate P 2021-10-30 00:00:00 Completed Pneumococcal conjugate P Pneumococcal conjugate P 2021-10-30 00:00:00 Completed Alexx Mendoza SHINGRIX VACCINE 2021-10-20 00:00:00 Completed SHINGRIX VACCINE 2021-10-20 00:00:00 Completed SHINGRIX VACCINE 2021-10-20 00:00:00 Completed SHINGRIX VACCINE 2021-10-20 00:00:00 Completed SHINGRIX VACCINE 2021-10-20 00:00:00 Completed SHINGRIX VACCINE 2021-10-20 00:00:00 Completed SHINGRIX VACCINE SHINGRIX VACCINE 2021-10-20 00:00:00 Completed Alexx Mendoza Influenza, injectable, Madin [facility] Canine Kidney, preservative-free, quadrivalent Influenza, injectable, Madin [facility] Canine Kidney, preservative-free, quadrivalent 2021-09-05 00:00:00 Completed Alexx Mendoza Influenza Virus Vaccine Quad IM, Preserv and ABX Free 6 MO-64 YRS 2021-09-05 00:00:00 Completed [facility] Influenza Virus Vaccine Quad IM, Preserv and ABX Free 6 MO-64 YRS 2021-09-05 00:00:00 Completed [facility] Influenza Virus Vaccine Quad IM, Preserv and ABX Free 6 MO-64 YRS 2021-09-05 00:00:00 Completed [facility] Influenza Virus Vaccine Quad IM, Preserv and ABX Free 6 MO-64 YRS 2021-09-05 00:00:00 Completed [facility] Influenza Virus Vaccine Quad IM, Preserv and ABX Free 6 MO-64 YRS (FLUCELVAX) 2021-09-05 00:00:00 Completed [facility] Moderna COVID-19 Vaccine 2021-09-04 00:00:00 Completed Moderna COVID-19 Vaccine 2021-09-04 00:00:00 Completed Moderna COVID-19 Vaccine 2021-09-04 00:00:00 Completed Moderna COVID-19 Vaccine 2021-09-04 00:00:00 Completed Moderna COVID-19 Vaccine 2021-09-04 00:00:00 Completed Moderna COVID-19 Vaccine 2021-09-04 00:00:00 Completed Moderna COVID-19 Vaccine Moderna COVID-19 Vaccine 2021-09-04 00:00:00 Completed Alexx Mendoza SARS-COV-2 COVID-19 MODERNA 0.5ML BOOSTER VACCINE 2021-09-04 00:00:00 Completed [facility] SARS-COV-2 COVID-19 MODERNA 0.5ML BOOSTER VACCINE 2021-09-04 00:00:00 Completed [facility] SARS-COV-2 COVID-19 MODERNA 0.5ML BOOSTER VACCINE 2021-09-04 00:00:00 Completed Moderna COVID-19 Vaccine 2021-02-24 00:00:00 Completed Moderna COVID-19 Vaccine 2021-02-24 00:00:00 Completed Moderna COVID-19 Vaccine 2021-02-24 00:00:00 Completed Moderna COVID-19 Vaccine 2021-02-24 00:00:00 Completed Moderna COVID-19 Vaccine 2021-02-24 00:00:00 Completed Moderna COVID-19 Vaccine 2021-02-24 00:00:00 Completed Moderna COVID-19 Vaccine Moderna COVID-19 Vaccine 2021-02-24 00:00:00 Completed Alexx Mendoza SARS-COV-2 COVID-19 MODERNA VACCINE 2021-02-24 00:00:00 Completed [facility] SARS-COV-2 COVID-19 MODERNA VACCINE 2021-02-24 00:00:00 Completed [facility] SARS-COV-2 COVID-19 MODERNA 12+ YRS VACCINE 2021-02-24 00:00:00 Completed [facility] SARS-COV-2 COVID-19 MODERNA 12+ YRS VACCINE 2021-02-24 00:00:00 Completed [facility] SARS-COV-2 COVID-19 MODERNA 12+ YRS VACCINE 2021-02-24 00:00:00 Completed Moderna COVID-19 Vaccine 2021-02-01 00:00:00 Completed Moderna COVID-19 Vaccine 2021-02-01 00:00:00 Completed Moderna COVID-19 Vaccine 2021-02-01 00:00:00 Completed Moderna COVID-19 Vaccine 2021-02-01 00:00:00 Completed Moderna COVID-19 Vaccine 2021-02-01 00:00:00 Completed Moderna COVID-19 Vaccine 2021-02-01 00:00:00 Completed Moderna COVID-19 Vaccine Moderna COVID-19 Vaccine 2021-02-01 00:00:00 Completed Alexx Mendoza SARS-COV-2 COVID-19 MODERNA VACCINE 2021-02-01 00:00:00 Completed [facility] SARS-COV-2 COVID-19 MODERNA VACCINE 2021-02-01 00:00:00 Completed [facility] SARS-COV-2 COVID-19 MODERNA 12+ YRS VACCINE 2021-02-01 00:00:00 Completed [facility] SARS-COV-2 COVID-19 MODERNA 12+ YRS VACCINE 2021-02-01 00:00:00 Completed [facility] SARS-COV-2 COVID-19 MODERNA 12+ YRS VACCINE 2021-02-01 00:00:00 Completed [facility] Influenza Virus Vaccine Quad IM 3+ YRS 2020-07-19 00:00:00 Completed [facility] Influenza Virus Vaccine Quad .5 mL IM 6+ MO 2020-07-19 00:00:00 Completed [facility] Influenza Virus Vaccine Quad .5 mL IM 6+ MO 2020-07-19 00:00:00 Completed [facility] Influenza Virus Vaccine Quad .5 mL IM 6+ MO 2020-07-19 00:00:00 Completed [facility] Influenza Virus Vaccine Quad IM 3+ YRS 2020-07-19 00:00:00 Completed Influenza Virus Vaccine 2019-09-17 00:00:00 Completed [facility] Influenza Virus Vaccine 2019-09-17 00:00:00 Completed [facility] Influenza Virus Vaccine 2019-09-17 00:00:00 Completed [facility] Influenza Virus Vaccine 2019-09-17 00:00:00 Completed [facility] Influenza Virus Vaccine 2019-09-17 00:00:00 Completed [facility] PNEUMAVAX 23 PNEUMAVAX 23 Unknown Completed Comm on [facility] Fluzone Fluzone Unknown Completed [facility] PNEUMAVAX 23 PNEUMAVAX 23 Unknown Completed Comm on [facility] Fluzone Fluzone Unknown Completed [facility] PNEUMAVAX 23 PNEUMAVAX 23 Unknown Completed Comm on [facility] Fluzone Fluzone Unknown Completed [facility] PNEUMAVAX 23 PNEUMAVAX 23 Unknown Completed Comm on [facility] Fluzone Fluzone Unknown Completed [facility] Influenza Virus Vaccine Unknown Completed [facility] Influenza Virus Vaccine Quad .5 mL IM 6+ MO (FLUZONE/FLULAVAL/F LUARIX) Unknown Completed [facility] SARS-COV-2 COVID-19 MODERNA 12+ YRS VACCINE Unknown Completed [facility] Influenza Virus Vaccine Unknown Completed [facility] Influenza Virus Vaccine Quad .5 mL IM 6+ MO (FLUZONE/FLULAVAL/F LUARIX) Unknown Completed [facility] SARS-COV-2 COVID-19 MODERNA 12+ YRS VACCINE Unknown Completed [facility] Influenza Virus Vaccine Unknown Completed [facility] Influenza Virus Vaccine Quad .5 mL IM 6+ MO (FLUZONE/FLULAVAL/F LUARIX) Unknown Completed [facility] Influenza Virus Vaccine Quad IM, Preserv and ABX Free 6 MO-64 YRS (FLUCELVAX) Unknown Completed [facility] SARS-COV-2 COVID-19 MODERNA 12+ YRS VACCINE Unknown Completed [facility] SARS-COV-2 COVID-19 MODERNA 0.5ML BOOSTER VACCINE Unknown Completed [facility] TD, NOS Unknown Completed [facility] Influenza Virus Vaccine Unknown Completed [facility] Influenza Virus Vaccine Quad .5 mL IM 6+ MO (FLUZONE/FLULAVAL/F LUARIX) Unknown Completed [facility] Influenza Virus Vaccine Quad IM, Preserv and ABX Free 6 MO-64 YRS (FLUCELVAX) Unknown Completed [facility] SARS-COV-2 COVID-19 MODERNA 12+ YRS VACCINE Unknown Completed [facility] SARS-COV-2 COVID-19 MODERNA 0.5ML BOOSTER VACCINE Unknown Completed [facility] TD, NOS Unknown Completed [facility] Influenza Virus Vaccine Unknown Completed [facility] Influenza Virus Vaccine Quad .5 mL IM 6+ MO (FLUZONE/FLULAVAL/F LUARIX) Unknown Completed [facility] Influenza Virus Vaccine Quad IM, Preserv and ABX Free 6 MO-64 YRS (FLUCELVAX) Unknown Completed [facility] SARS-COV-2 COVID-19 MODERNA 12+ YRS VACCINE Unknown Completed [facility] SARS-COV-2 COVID-19 MODERNA 0.5ML BOOSTER VACCINE Unknown Completed [facility] TD, NOS Unknown Completed [facility] Influenza Virus Vaccine Unknown Completed [facility] Influenza Virus Vaccine Quad .5 mL IM 6+ MO (FLUZONE/FLULAVAL/F LUARIX) Unknown Completed [facility] Influenza Virus Vaccine Quad IM, Preserv and ABX Free 6 MO-64 YRS (FLUCELVAX) Unknown Completed [facility] SARS-COV-2 COVID-19 MODERNA 12+ YRS VACCINE Unknown Completed [facility] SARS-COV-2 COVID-19 MODERNA 0.5ML BOOSTER VACCINE Unknown Completed [facility] TD, NOS Unknown Completed [facility] Influenza Virus Vaccine Unknown Completed [facility] Influenza Virus Vaccine Quad .5 mL IM 6+ MO (FLUZONE/FLULAVAL/F LUARIX) Unknown Completed [facility] Influenza Virus Vaccine Quad IM, Preserv and ABX Free 6 MO-64 YRS (FLUCELVAX) Unknown Completed [facility] SARS-COV-2 COVID-19 MODERNA 12+ YRS VACCINE Unknown Completed [facility] SARS-COV-2 COVID-19 MODERNA 0.5ML BOOSTER VACCINE Unknown Completed [facility] TD, NOS Unknown Completed [facility] Vital Signs Vital Name Observation Time Observation Value Mahsa michael Systolic blood pressure 2024-10-09 15:35:00 129 mm[Hg] [facility] Diastolic blood pressure 2024-10-09 15:35:00 83 mm[Hg] [facility] Heart rate 2024-10-09 15:35:00 48 /min [facility] Body weight 2024-10-09 14:32:00 59.875 kg [facility] BMI 2024-10-09 14:32:00 25.78 kg/m2 [facility] height 2023-05-01 11:15:00 60 [in_i] Commo n [facility] weight 2023-05-01 11:15:00 168 [lb_av] Comm on [facility] temperature 2023-05-01 11:15:00 97.9 [degF] Com mon [facility] bmi 2023-05-01 11:15:00 32.81 kg/m2 Comm on [facility] oximetry 2023-05-01 11:15:00 92 % Commo n [facility] respiratory rate 2023-05-01 11:15:00 18 /min [facility] blood pressure systolic 2023-05-01 11:15:00 121 mm[Hg] [facility] blood pressure diastolic 2023-05-01 11:15:00 67 mm[Hg] [facility] height 2023-02-21 08:45:00 60 [in_i] Commo n [facility] weight 2023-02-21 08:45:00 165.4 [lb_av] Co mmon [facility] temperature 2023-02-21 08:45:00 97.5 [degF] Com mon [facility] bmi 2023-02-21 08:45:00 32.3 kg/m2 Commo n [facility] oximetry 2023-02-21 08:45:00 97 % Commo n [facility] respiratory rate 2023-02-21 08:45:00 18 /min [facility] blood pressure systolic 2023-02-21 08:45:00 125 mm[Hg] [facility] blood pressure diastolic 2023-02-21 08:45:00 65 mm[Hg] [facility] Systolic blood pressure 2022-05-01 14:36:00 109 mm[Hg] [place] [facility] Diastolic blood pressure 2022-05-01 14:36:00 73 mm[Hg] [place] [facility] Heart rate 2022-05-01 14:36:00 87 /min [facility] Body height 2022-05-01 14:36:00 152.4 cm [facility] Body weight 2022-05-01 14:36:00 70.761 kg [facility] BMI 2022-05-01 14:36:00 30.47 kg/m2 [facility] BP Systolic 2024-11-19 10:23:00 123 mm[Hg] Step hen [facility]ji BP Diastolic 2024-11-19 10:23:00 63 mm[Hg] Ar phen F [facility]ji Weight Measured 2024-11-19 10:23:00 144.00 pounds Alexx F Reji Height Measured 2024-11-19 10:23:00 60.00 inches Alexx F Re[facility] Body Temperature 2024-11-19 10:23:00 97.30 degrees Alexx F Reji Heart Rate 2024-11-19 10:23:00 60.00 /min Shanel en [facility] Respiratory Rate 2024-11-19 10:23:00 16.00 /min Alexx F Reji BP Systolic 2024-11-16 13:40:00 119 mm[Hg] Step hen [facility] BP Diastolic 2024-11-16 13:40:00 70 mm[Hg] Ar phen [facility]ji Weight Measured 2024-11-16 13:40:00 142.40 pounds Alexx F Reji Height Measured 2024-11-16 13:40:00 60.00 inches Alexx F Reji Body Temperature 2024-11-16 13:40:00 97.20 degrees Alexx F Reji Heart Rate 2024-11-16 13:40:00 71.00 /min Shanel en [facility] Respiratory Rate 2024-11-16 13:40:00 16.00 /min Alexx F Reji BP Systolic 2024-11-13 09:46:00 110 mm[Hg] Step hen F Reji BP Diastolic 2024-11-13 09:46:00 70 mm[Hg] Ar phen F Reji Weight Measured 2024-11-13 09:46:00 143.40 pounds Alexx F Reji Height Measured 2024-11-13 09:46:00 60.00 inches Alexx F Reji Body Temperature 2024-11-13 09:46:00 98.20 degrees Alexx F Reji Heart Rate 2024-11-13 09:46:00 58.00 /min Shanel en F Re[facility] Respiratory Rate 2024-11-13 09:46:00 18.00 /min Alexx F Reji BP Systolic 2024-10-21 15:46:00 133 mm[Hg] Step hen F Reji BP Diastolic 2024-10-21 15:46:00 83 mm[Hg] Ar phen F Reji Weight Measured 2024-10-21 15:46:00 141.60 pounds Alexx F Reji Height Measured 2024-10-21 15:46:00 60.00 inches Alexx F Reji Body Temperature 2024-10-21 15:46:00 98.30 degrees Alexx F Reji Heart Rate 2024-10-21 15:46:00 59.00 /min Shanel en F [facility] Respiratory Rate 2024-10-21 15:46:00 18.00 /min Alexx F Reji BP Systolic 2024-09-16 11:24:00 108 mm[Hg] Step hen F Reji BP Diastolic 2024-09-16 11:24:00 56 mm[Hg] Ar phen F Reji Weight Measured 2024-09-16 11:24:00 139.80 pounds Alexx F Reji Height Measured 2024-09-16 11:24:00 60.00 inches Alexx F Reji Body Temperature 2024-09-16 11:24:00 97.40 degrees Alexx F Reji Heart Rate 2024-09-16 11:24:00 55.00 /min Shanel en F Reji Respiratory Rate 2024-09-16 11:24:00 16.00 /min Alexx F Reji BP Systolic 2024-09-03 14:29:00 117 mm[Hg] Step hen F Reji BP Diastolic 2024-09-03 14:29:00 72 mm[Hg] Ar phen F Reji Weight Measured 2024-09-03 14:29:00 140.00 pounds Alexx F Reji Height Measured 2024-09-03 14:29:00 60.00 inches Alexx F Reji Body Temperature 2024-09-03 14:29:00 98.30 degrees Alexx F Reji Heart Rate 2024-09-03 14:29:00 56.00 /min Shanel en F Reji Respiratory Rate 2024-09-03 14:29:00 16.00 /min Alexx F Reji BP Systolic 2024-08-27 13:46:00 119 mm[Hg] Step hen F Reji BP Diastolic 2024-08-27 13:46:00 66 mm[Hg] Ar phen F Reji Weight Measured 2024-08-27 13:46:00 135.80 pounds Alexx F Reji Height Measured 2024-08-27 13:46:00 60.00 inches Alexx F Reji Body Temperature 2024-08-27 13:46:00 98.30 degrees Alexx F Reji Heart Rate 2024-08-27 13:46:00 59.00 /min Shanel en F Reji Respiratory Rate 2024-08-27 13:46:00 16.00 /min Alexx F Reji BP Systolic 2024-08-19 14:28:00 105 mm[Hg] Step hen F Reji BP Diastolic 2024-08-19 14:28:00 63 mm[Hg] Ar phen F Reji Weight Measured 2024-08-19 14:28:00 137.40 pounds Alexx F Reji Height Measured 2024-08-19 14:28:00 60.00 inches Alexx F Reji Body Temperature 2024-08-19 14:28:00 97.40 degrees Alexx F Reji Heart Rate 2024-08-19 14:28:00 63.00 /min Shanel en F Reji Respiratory Rate 2024-08-19 14:28:00 18.00 /min Alexx F Reji BP Systolic 2024-08-14 15:49:00 129 mm[Hg] Step hen F Reji BP Diastolic 2024-08-14 15:49:00 76 mm[Hg] Ar phen F Reji Weight Measured 2024-08-14 15:49:00 134.40 pounds Alexx F Reji Height Measured 2024-08-14 15:49:00 60.00 inches Alexx F Reji Body Temperature 2024-08-14 15:49:00 97.50 degrees Alexx F Reji Heart Rate 2024-08-14 15:49:00 52.00 /min Shanel en F Reji Respiratory Rate 2024-08-14 15:49:00 18.00 /min Alexx F Reji BP Systolic 2024-08-11 17:03:00 112 mm[Hg] Step hen F Reji BP Diastolic 2024-08-11 17:03:00 73 mm[Hg] Ar phen F Reji Weight Measured 2024-08-11 17:03:00 135.20 pounds Alexx F Reji Height Measured 2024-08-11 17:03:00 60.00 inches Alexx F Reji Body Temperature 2024-08-11 17:03:00 98.10 degrees Alexx F Reji Heart Rate 2024-08-11 17:03:00 65.00 /min Shanel en F Reji Respiratory Rate 2024-08-11 17:03:00 Alexx F Reji BP Systolic 2024-07-15 08:07:00 115 mm[Hg] Step hen F Reji BP Diastolic 2024-07-15 08:07:00 73 mm[Hg] Ar phen F Reji Weight Measured 2024-07-15 08:07:00 140.20 pounds Alexx F Reji Height Measured 2024-07-15 08:07:00 60.00 inches Alexx F Reji Body Temperature 2024-07-15 08:07:00 98.10 degrees Alexx F Reji Heart Rate 2024-07-15 08:07:00 52.00 /min Shanel en F Reji Respiratory Rate 2024-07-15 08:07:00 18.00 /min Alexx F Reji BP Systolic 2024-07-09 11:41:00 116 mm[Hg] Step hen F Reji BP Diastolic 2024-07-09 11:41:00 75 mm[Hg] Ar phen F Reji Weight Measured 2024-07-09 11:41:00 138.00 pounds Alexx F Reji Height Measured 2024-07-09 11:41:00 60.00 inches Alexx F Reji Body Temperature 2024-07-09 11:41:00 98.30 degrees Alexx F Reji Heart Rate 2024-07-09 11:41:00 57.00 /min Shanel en F Reji Respiratory Rate 2024-07-09 11:41:00 18.00 /min Alexx F Reji BP Systolic 2024-06-26 11:15:00 110 mm[Hg] Step hen F Reji BP Diastolic 2024-06-26 11:15:00 69 mm[Hg] Ar phen F Reji Weight Measured 2024-06-26 11:15:00 136.00 pounds Alexx F Reji Height Measured 2024-06-26 11:15:00 60.00 inches Alexx F Reji Body Temperature 2024-06-26 11:15:00 98.00 degrees Alexx F Reji Heart Rate 2024-06-26 11:15:00 57.00 /min Shanel en F Reji Respiratory Rate 2024-06-26 11:15:00 16.00 /min Alexx F Reji BP Systolic 2024-05-22 12:00:00 105 mm[Hg] Step hen F Reji BP Diastolic 2024-05-22 12:00:00 76 mm[Hg] Ar phen F Reji Weight Measured 2024-05-22 12:00:00 131.80 pounds Alexx [...] Rate 2024-04-21 10:56:00 Alexx F Reji BP Systolic 2024-03-19 10:01:00 118 mm[Hg] Step hen F Reji BP Diastolic 2024-03-19 10:01:00 64 mm[Hg] Ar phen F Reji Weight Measured 2024-03-19 10:01:00 145.60 pounds Alexx F Reji Height Measured 2024-03-19 10:01:00 60.00 inches Alexx F Reji Body Temperature 2024-03-19 10:01:00 98.20 degrees Alexx F Reji Heart Rate 2024-03-19 10:01:00 67.00 /min Shanel en F Reji Respiratory Rate 2024-03-19 10:01:00 Alexx F Reji BP Systolic 2024-03-11 10:07:00 134 [...] Body Temperature 2024-01-13 15:40:00 98.20 degrees Alexx F Reji Heart Rate 2024-01-13 15:40:00 78.00 /min Shanel en F Reji Respiratory Rate 2024-01-13 15:40:00 Alexx F Reji BP Systolic 2022-08-27 16:26:00 126 mm[Hg] BP [...] BRAIN WO CONTRAST 2024-02-13 16:51:57 Requisition, Paper [facility] REFERRAL- REQUEST/RESPONSE 2024-01-21 06:01:00 Doctor Unassigned, [place] [facility] REFERRAL- REQUEST/RESPONSE 2023-09-25 06:01:00 Doctor Unassigned, [place] [facility] PVR 2023-05-01 00:00:00 [facility] EMG/NCV 2022-07-10 05:01:00 Addi Mallory [facility] Plan of Care Planned Activity Planned Date Details Comments Source Goal Plan of Care Note [code = 00444-9] Goal Plan of Care Note [code = 58176-4] Goal Plan of Care Note [code = 93783-6] Goal Plan of Care Note [code = 97574-6] Goal Plan of Care Note [code = 94333-7] Goal Plan of Care Note [code = 53579-6] Goal Plan of Care Note [code = 33328-7] Goal Plan of Care Note [code = 86844-5] Goal Plan of Care Note [code = 22129-2] Goal Plan of Care Note [code = 13624-0] Goal Plan of Care Note [code = 51871-2] Goal Plan of Care Note [code = 05800-6] Goal Plan of Care Note [code = 70339-4] Goal Plan of Care Note [code = 37884-6] Goal Plan of Care Note [code = 91571-7] Goal Plan of Care Note [code = 04225-0] Goal Plan of Care Note [code = 34902-7] Goal Plan of Care Note [code = 56590-0] Goal Plan of Care Note [code = 32522-5] Goal Plan of Care Note [code = 17466-7] Goal Plan of Care Note [code = 86857-7] Goal Plan of Care Note [code = 70128-2] Goal Plan of Care Note [code = 81192-9] Goal Plan of Care Note [code = 60236-5] Goal Plan of Care Note [code = 85870-8] Goal Plan of Care Note [code = 36570-7] Goal Plan of Care Note [code = 14464-2] Goal Plan of Care Note [code = 18065-0] Goal Plan of Care Note [code = 61938-9] Goal Plan of Care Note [code = 77809-2] Goal Plan of Care Note [code = 36549-6] Goal Plan of Care Note [code = 98124-4] Goal Plan of Care Note [code = 56426-4] Goal Plan of Care Note [code = 90307-0] Goal Plan of Care Note [code = 29851-1] Goal Plan of Care Note [code = 69113-0] Goal Plan of Care Note [code = 57876-7] Goal Plan of Care Note [code = 87251-2] Goal Plan of Care Note [code = 15278-8] Goal Plan of Care Note [code = 98107-6] Goal Plan of Care Note [code = 16863-2] Goal Plan of Care Note [code = 24363-2] Goal Plan of Care Note [code = 90632-4] Goal Plan of Care Note [code = 38367-1] Goal Plan of Care Note [code = 06659-3] Goal Plan of Care Note [code = 86849-3] Goal Plan of Care Note [code = 44217-0] Goal Plan of Care Note [code = 38122-7] Goal Plan of Care Note [code = 88666-1] Goal Plan of Care Note [code = 70336-3] Goal Plan of Care Note [code = 16130-5] Goal Plan of Care Note [code = 87476-8] Goal Plan of Care Note [code = 07646-5] Goal Plan of Care Note [code = 88832-3] Goal Plan of Care Note [code = 95841-7] Goal Plan of Care Note [code = 74665-2] Goal Plan of Care Note [code = 56266-5] Goal Plan of Care Note [code = 08462-2] Goal Plan of Care Note [code = 09857-5] Goal Plan of Care Note [code = 42133-2] Goal Plan of Care Note [code = 85372-1] Goal Plan of Care Note [code = 44344-3] Goal Plan of Care Note [code = 86095-9] Goal Plan of Care Note [code = 56635-9] Goal Plan of Care Note [code = 52591-3] Goal Plan of Care Note [code = 83758-2] Goal Plan of Care Note [code = 92349-5] Goal Plan of Care Note [code = 08754-0] Goal Plan of Care Note [code = 77763-2] Goal Plan of Care Note [code = 32938-3] Goal Plan of Care Note [code = 76115-0] Goal Plan of Care Note [code = 60323-1] Goal Plan of Care Note [code = 54535-5] Goal Plan of Care Note [code = 80424-0] Goal Plan of Care Note [code = 94964-2] Goal Plan of Care Note [code = 77207-9] Goal Plan of Care Note [code = 40511-4] Goal Plan of Care Note [code = 07640-6] Goal Plan of Care Note [code = 59746-5] Goal Plan of Care Note [code = 72797-1] Goal Plan of Care Note [code = 00882-2] Goal Plan of Care Note [code = 35923-3] Goal Plan of Care Note [code = 48191-8] Goal Plan of Care Note [code = 88848-1] Goal Plan of Care Note [code = 36881-4] Goal Plan of Care Note [code = 25230-0] Goal Plan of Care Note [code = 33392-4] Goal Plan of Care Note [code = 07901-1] Goal Plan of Care Note [code = 52375-4] Goal Plan of Care Note [code = 62829-9] Goal Plan of Care Note [code = 71762-6] Goal Plan of Care Note [code = 31660-7] Goal Plan of Care Note [code = 34476-7] Goal Plan of Care Note [code = 84305-2] Goal Plan of Care Note [code = 51701-2] Goal Plan of Care Note [code = 68119-5] Goal Plan of Care Note [code = 84052-6] Goal Plan of Care Note [code = 65744-6] Goal Plan of Care Note [code = 30479-7] Goal Plan of Care Note [code = 64721-5] Goal Plan of Care Note [code = 66551-5] Goal Plan of Care Note [code = 67120-0] Goal Plan of Care Note [code = 90096-9] Goal Plan of Care Note [code = 44223-3] Goal Plan of Care Note [code = 37190-8] Encounters Start Date/Time End Date/Time Encounter Type Admission Type Attending [facility] Facility Care Department Encounter ID Source 2024-10-29 06:05:13 Outpatient KERVIN CRUZ [facility] O[facility] [id number] [facility] 2023-09-17 10:05:02 Outpatient VITO PADRON [id number] [facility] 2023-02-21 08:14:00 Outpatient [facility] [id number] [facility] 2022-02-20 14:52:01 Outpatient [facility] [id number] [facility] 2024-11-19 10:17:13 2024-11-19 10:17:13 Outpatient S[facility] [id number] Alexx Mendoza 2024-11-19 00:00:00 2024-11-19 00:00:00 Outpatient Visit [facility] [id number] Alexx Mendoza 2024-11-17 13:06:12 2024-11-17 13:06:12 Outpatient [facility] [id number] Alexx Mendoza 2024-11-16 13:34:39 2024-11-16 13:34:39 Outpatient [facility] [id number] Alexx Mendoza 2024-11-13 09:37:27 2024-11-13 09:37:27 Outpatient SFA SFA [id number] Alexx Mendoza 2024-11-13 00:00:00 2024-11-13 00:00:00 Outpatient Visit SFA [id number] Alexx Mendoza 2024-10-29 14:22:43 2024-10-29 14:22:43 Outpatient SFA SFA [id number] Alexx Mendoza 2024-10-21 15:36:55 2024-10-21 15:36:55 Outpatient [facility] [id number] Alexx Mendoza 2024-10-21 00:00:00 2024-10-21 00:00:00 Outpatient Visit [facility] [id number] Alexx Mendoza 2024-10-13 00:00:00 2024-10-14 10:01:53 Telephone Kervin Haas [facility] eSKY.pl BLDG. 1.2.840.114 350.1.13.10 4.2.7.2.686 [id number] [facility] 2024-10-14 09:27:39 2024-10-14 09:27:39 Outpatient [facility] [id number] Alexx Mendoza 2024-10-13 00:00:00 2024-10-13 15:54:46 Telephone Kervin Haas [facility] BLDG. 1.2.840.114 350.1.13.10 4.2.7.2.686 [id number] [facility] 2024-10-13 00:00:00 2024-10-13 15:49:29 Telephone Kervin Haas [facility] BLDG. 1.2.840.114 350.1.13.10 4.2.7.2.686 [id number] [facility] 2024-10-13 00:00:00 2024-10-13 08:15:54 Prep For Surgery Tony Bah [facility] 1.2.840.114 350.1.13.10 4.2.7.2.686 [id number] [facility] 2024-10-12 15:25:10 2024-10-12 15:25:10 Outpatient [facility] [id number] Alexx Mendoza 2024-10-09 08:15:00 2024-10-09 09:49:23 Outpatient R KERVIN HAAS [facility] [id number] [facility] 2024-10-09 08:15:00 2024-10-09 09:49:23 Office Visit Kervin Haas Manjit [facility] BLDG. 1.2.840.114 350.1.13.10 4.2.7.2.686 [id number] [facility] 2024-09-30 13:02:06 2024-09-30 13:02:06 Outpatient SFA SFA [id number] Alexx Mendoza 2024-09-16 11:18:24 2024-09-16 11:18:24 Outpatient SFA SFA [id number] Alexx Mendoza 2024-09-15 11:01:58 2024-09-15 11:01:58 Outpatient SFA SFA [id number] Alexx Mendoza 2024-09-09 08:08:07 2024-09-09 08:08:07 Outpatient SFA SFA [id number] Alexx Mendoza 2024-09-03 14:24:15 2024-09-03 14:24:15 Outpatient SFA SFA [id number] Alexx Mendoza 2024-09-03 00:00:00 2024-09-03 00:00:00 Outpatient Visit SFA [id number]-[id number] [id number] Alexx Mendoza 2024-09-02 08:02:59 2024-09-02 08:02:59 Outpatient SFA SFA [id number] Alexx Mendoza 2024-08-27 13:45:27 2024-08-27 13:45:27 Outpatient SFA SFA [id number] Alexx Mendoza 2024-08-27 00:00:00 2024-08-27 00:00:00 Outpatient Visit SFA [id number] [id number] Alexx Mendoza 2024-08-26 15:12:22 2024-08-26 15:12:22 Outpatient SFA SFA [id number] Alexx Mendoza 2024-08-21 11:57:24 2024-08-21 11:57:24 Outpatient SFA SFA [id number] Alexx Mendoza 2024-08-19 14:15:08 2024-08-19 14:15:08 Outpatient SFA SFA [id number] Alexx Mendoza 2024-08-19 00:00:00 2024-08-19 00:00:00 Outpatient Visit SFA [id number] l7p-[id number] [id number] Alexx Mendoza 2024-08-18 09:11:21 2024-08-18 09:11:21 Outpatient SFA SFA [id number] Alexx Mnedoza 2024-08-14 15:28:39 2024-08-14 15:28:39 Outpatient SFA SFA [id number] Alexx Mendoza 2024-08-14 00:00:00 2024-08-14 00:00:00 Outpatient Visit SFA [id number] Alexx Mendoza 2024-08-11 16:54:12 2024-08-11 16:54:12 Outpatient SFA SFA [id number] Alexx Mendoza 2024-08-11 00:00:00 2024-08-11 00:00:00 Outpatient Visit SFA [id number]-49ec-[id number] l71-08popt [id number] Alexx Mendoza 2024-08-07 13:31:01 2024-08-07 13:31:01 Outpatient SFA SFA [id number] Alexx Mendoza 2024-08-04 16:30:15 2024-08-04 16:30:15 Outpatient SFA SFA [id number] Alexx Mendoza 2024-08-04 00:00:00 2024-08-04 00:00:00 Outpatient Visit SFA [id number] [id number] [id number]-b326i9 [id number] Alexx Mendoza 2024-07-21 14:08:22 2024-07-21 14:08:22 Outpatient SFA SFA [id number] Alexx Mendoza 2024-07-15 07:58:40 2024-07-15 07:58:40 Outpatient SFA SFA [id number] Alexx Mendoza 2024-07-15 00:00:00 2024-07-15 00:00:00 Outpatient Visit SFA [id number] Alexx Mendoza 2024-07-09 11:30:17 2024-07-09 11:30:17 Outpatient SFA SFA [id number] Alexx Mendoza 2024-07-09 00:00:00 2024-07-09 00:00:00 Outpatient Visit SFA [id number] [id number] Alexx Mendoza 2024-07-08 10:48:43 2024-07-08 10:48:43 Outpatient SFA SFA [id number] Alexx Mendoza 2024-06-26 11:22:19 2024-06-26 11:22:19 Outpatient SFA SFA [id number] Alexx Mendoza 2024-06-24 13:02:30 2024-06-24 13:02:30 Outpatient SFA SFA [id number] Alexx Soliman Reji 2024-06-16 09:24:08 2024-06-16 09:24:08 Outpatient SFA SFA [id number] Alexx Soliman Reji 2024-05-27 16:10:19 2024-05-27 16:10:19 Outpatient SFA SFA [id number] Alexx Soliman Reji 2024-05-22 10:53:34 2024-05-22 10:53:34 Outpatient SFA SFA [id number] Alexx Soliman [place] 2024-05-07 14:58:21 2024-05-07 14:58:21 Outpatient SFA SFA [id number] Alexx Soliman Reji 2024-05-07 00:00:00 2024-05-07 00:00:00 Outpatient Visit SFA [id number] Alexx Mendoza 2024-04-21 10:53:01 2024-04-21 10:53:01 Outpatient SFA SFA [id number] Alexx Mendoza 2024-04-21 00:00:00 2024-04-21 00:00:00 Outpatient Visit SFA [id number] Alexx Mendoza 2024-04-20 08:09:05 2024-04-20 08:09:05 Outpatient SFA SFA [id number] Alexx Mendoza 2024-03-19 09:49:29 2024-03-19 09:49:29 Outpatient SFA SFA [id number] Alexx Mendoza 2024-03-19 00:00:00 2024-03-19 00:00:00 Outpatient Visit SFA [id number] 46b-4576-b [id number] aac4ae Alexx Mendoza 2024-03-11 10:00:11 2024-03-11 10:00:11 Outpatient SFA SFA [id number] Alexx Mendoza 2024-03-11 00:00:00 2024-03-11 00:00:00 Outpatient Visit SFA [id number] Alexx Mendoza 2024-03-06 14:40:32 2024-03-06 14:40:32 Outpatient SFA SFA [id number] Alexx Mendoza 2024-03-06 00:00:00 2024-03-06 00:00:00 Outpatient Visit SFA [id number]-2084-a [id number] Alexx Mendoza 2024-02-25 11:12:32 2024-02-25 11:12:32 Outpatient SFA SFA [id number] Alexx Mendoza 2024-02-24 14:53:13 2024-02-24 14:53:13 Outpatient SFA SFA [id number] Alexx Mendoza 2024-02-24 00:00:00 2024-02-24 00:00:00 Outpatient Visit [facility] [id number]-[id number] [id number]-[id number] [id number] Alexx Mendoza 2024-02-13 10:36:34 2024-02-13 23:59:00 Outpatient R RADIOLOGY [facility] [id number] [facility] 2024-02-13 10:36:34 2024-02-13 23:59:00 Hospital Encounter Radiology [facility] 1.2.840.114 350.1.13.10 4.2.7.2.686 [id number] [facility] 2024-02-11 10:02:32 2024-02-11 10:02:32 Outpatient SFA [facility] [id number] Alexx Mendoza 2024-02-11 00:00:00 2024-02-11 00:00:00 Outpatient Visit [facility] [id number] Alexx Mendoza 2024-02-04 10:00:45 2024-02-04 10:00:45 Outpatient [facility] [id number] Alexx Mendoza 2024-01-28 10:03:07 2024-01-28 10:03:07 Outpatient [facility] [id number] Alexx Soliman Reji 2024-01-21 00:00:00 2024-01-21 00:00:00 Orders Only Doctor Unassigned, [place] [facility] 1.2.840.114 350.1.13.10 4.2.7.2.686 [id number] [facility] 2024-01-17 11:15:56 2024-01-17 11:15:56 Outpatient SFA [facility] [id number] Alexx Mendoza 2024-01-13 15:35:24 2024-01-13 15:35:24 Outpatient [facility] [id number] Alexx Mendoza 2024-01-06 11:39:53 2024-01-06 11:39:53 Outpatient SFA SFA [id number] Alexx Mendoza 2024-01-02 13:46:16 2024-01-02 13:46:16 Outpatient SFA SFA [id number] Alexx Mendoza 2023-12-31 10:23:16 2023-12-31 10:23:16 Outpatient SFA SFA [id number] Alexx Mendoza 2023-12-27 10:41:09 2023-12-27 10:41:09 Outpatient SFA SFA [id number] Alexx Mendoza 2023-12-18 08:58:27 2023-12-18 08:58:27 Outpatient SFA SFA [id number] Alexx Mendoza 2023-12-16 11:07:47 2023-12-16 11:07:47 Outpatient SFA SFA [id number] Alexx Mendoza 2023-12-12 11:04:54 2023-12-12 11:04:54 Outpatient SFA SFA [id number] Alexx Mendoza 2023-12-09 11:05:46 2023-12-09 11:05:46 Outpatient SFA SFA [id number] Alexx Mendoza 2023-12-05 13:09:27 2023-12-05 13:09:27 Outpatient SFA SFA [id number] Alexx Mendoza 2023-11-28 09:09:34 2023-11-28 09:09:34 Outpatient SFA SFA [id number] Alexx Mendoza 2023-11-26 10:30:25 2023-11-26 10:30:25 Outpatient SFA SFA [id number] Alexx Mendoza 2023-11-21 13:51:35 2023-11-21 13:51:35 Outpatient SFA SFA [id number] Alexx Mendoza 2023-11-14 10:52:35 2023-11-14 10:52:35 Outpatient SFA SFA [id number] Alexx Mendoza 2023-11-08 10:52:46 2023-11-08 10:52:46 Outpatient [facility] [id number] Alexx Mendoza 2023-11-05 08:32:54 2023-11-05 08:32:[address] [id number] Alexx Mendoza 2023-10-24 08:50:15 2023-10-24 08:50:15 Outpatient [facility] [id number] Alexx Mendoza 2023-10-14 09:04:39 2023-10-14 09:04:39 Outpatient [place] [id number] Alexx Soliman [place] 2023-10-11 11:06:09 2023-10-11 11:06:09 Outpatient [facility] [id number] Alexx Soliman [place] 2023-10-04 09:25:15 2023-10-04 09:25:15 Outpatient [place] [id number] Alexx Soliman [place] 2023-10-01 00:00:00 2023-10-01 00:00:00 Letter (Out) Sol Haq [facility] 1.2.840.114 350.1.13.10 4.2.7.2.686 [id number] [facility] 2023-09-28 00:00:00 2023-09-28 00:00:00 Patient Secure Msg Doctor Unassigned, [place] [facility] 1.2.840.114 350.1.13.10 4.2.7.2.686 [id number] [facility] 2023-09-25 00:00:00 2023-09-25 00:00:00 Orders Only Doctor Unassigned, [place] 77[address].2840.114 350.1.13.10 4.2.7.2.686 [id number] [facility] 2023-09-24 12:58:09 2023-09-24 12:58:09 Outpatient SFA [facility] [id number] Alexx Soliman [place] 2023-09-19 10:43:49 2023-09-19 10:43:49 Outpatient SFA SFA [id number] Alexx Mendoza 2023-08-28 09:58:41 2023-08-28 09:58:41 Outpatient SFA SFA [id number] Alexx Mendoza 2023-08-26 10:14:36 2023-08-26 10:14:36 Outpatient SFA SFA [id number] Alexx Mendoza 2023-08-16 11:35:15 2023-08-16 11:35:15 Outpatient SFA SFA [id number] Alexx Mendoza 2023-08-15 10:33:08 2023-08-15 10:33:08 Outpatient SFA [facility] [id number] Alexx Mendoza 2023-08-13 10:55:28 2023-08-13 10:55:28 Outpatient SFA [facility] [id number] Alexx Mendoza 2023-07-02 14:38:40 2023-07-02 14:38:40 Outpatient SFA [facility] [id number] Alexx Mendoza 2023-05-30 00:00:00 2023-05-30 00:00:00 OFFICE VISIT ESTAB PT LEVEL 1 STLMLC STLMLC [id number] [facility] 2023-05-07 00:00:00 2023-05-07 00:00:00 (TEL) STLMLC STLMLC [id number] [facility] 2023-05-01 00:00:00 2023-05-01 00:00:00 OFFICE VISIT ESTAB PT LEVEL 3 STLMLC STLMLC [id number] [facility] 2023-04-05 00:00:00 2023-04-05 00:00:00 Addi Mcneal [facility] 1.2.840.114 350.1.13.10 4.2.7.2.686 [id number] [facility] 2023-02-21 00:00:00 2023-02-21 00:00:00 OFFICE VISIT NEW PT LEVEL 3 STLMLC STLMLC [id number] [facility] 2022-10-22 11:24:49 2022-10-22 23:59:00 Outpatient R RADIOLOGY [facility] [id number] [facility] 2022-10-22 11:24:49 2022-10-22 23:59:00 Hospital Encounter Radiology [facility] 1.2.840.114 350.1.13.10 4.2.7.2.686 [id number] [facility] 2022-10-22 10:36:41 2022-10-22 10:36:41 Outpatient SFA SFA [id number] Alexx Mendoza 2022-10-10 17:13:07 2022-10-10 17:13:07 Outpatient SFA [facility] [id number] Alexx Mendoza 2022-09-08 11:17:00 2022-09-08 11:17:00 Outpatient SFA [facility] [id number] Alexx Mendoza 2022-09-08 00:00:00 2022-09-08 00:00:00 Outpatient Visit [id number] -9aca-f03 [id number] ba7-4f9b-9 jsoef-b6624k b8e2bf 2022-09-05 13:00:00 2022-09-05 13:00:00 Outpatient R SUNITA MONTALVO [facility] [id number] [facility] 2022-08-28 08:17:17 2022-08-28 08:17:17 Outpatient SFA SFA [id number] Alexx Soliman Reji 2022-08-27 16:22:19 2022-08-27 16:22:19 Outpatient SFA SFA [id number] Alexx Mendoza 2022-08-27 00:00:00 2022-08-27 00:00:00 Outpatient Visit [id number] 4ada-406a -8ece-a29 4na21j0if [id number] ada-406a-8 kristin-a299bc 86a1bf 2022-08-14 00:00:00 2022-08-14 00:00:00 Outpatient Visit [id number] -40r7-90q bi1c8gfdm [id number] bd0-4793-8 5k1-37biy0 c1fced 2022-08-07 00:00:00 2022-08-07 00:00:00 Outpatient Visit o9zgemu7- 537f-428c -n03j-iy3 j1pw6d4ur [id number] n9qhkjg8-1 37f-428c-a 34f-eb8a4c f9a7cd 2022-08-06 00:00:00 2022-08-06 00:00:00 Outpatient Visit [id number]- 9616-4f16 -83n2-h8k [id number] 616-4f16-9 9q8-n3m08m [id number] 2022-07-18 00:00:00 2022-07-18 00:00:00 Outpatient Visit 0hy6p9d2- x94j-2pm7 -2nk5-v8z [id number] [id number] 4mk5x1z6-o 25e-4ea4-8 ae9-e2k640 dbec3a 2022-07-10 10:17:04 2022-07-10 23:59:00 Outpatient EMILIA SOLIMAN [facility] [id number] [facility] 2022-07-10 10:17:04 2022-07-10 23:59:00 Hospital Encounter Emilia Evans [facility] MEDICAL OFFICE BUILDING 1.2.840.114 350.1.13.10 4.2.7.2.686 [id number] [facility] 2022-06-01 10:00:00 2022-06-01 10:00:00 Outpatient ADDI GRAJEDA HOWARD [facility] [id number] [facility] 2022-05-01 09:40:00 2022-05-01 10:07:03 Outpatient ADDI GRAJEDA HOWARD [facility] [id number] [facility] 2022-05-01 09:40:00 2022-05-01 10:07:03 Office Visit Addi Mallory [facility] MED[facility] BUILDING 1.2.840.114 350.1.13.10 4.2.7.2.686 [id number] [facility] 2022-02-02 11:30:00 2022-02-02 12:00:00 Office Visit Johanna Naranjo [facility] 1..840.114 350.1.13.10 4.2.7.2.686 [id number] [facility] 2022-02-02 11:30:00 2022-02-02 11:30:00 Outpatient R JOHANNA NARANJO SHISCEdel [facility] [id number] [facility] 2022-01-16 15:15:00 2022-01-16 17:01:34 Outpatient R NEAL ALVAREZO [facility] [id number] [facility] 2022-01-16 15:15:00 2022-01-16 17:01:34 Ancillary Visit Gordon Wilbur [facility] [employer] [facility] BLDG. 1.2.840.114 350.1.13.10 4.2.7.2.686 [id number] [facility] 2022-01-16 15:00:00 2022-01-16 16:12:50 Outpatient R NEAL ALVAREZO [facility] [id number] [facility] 2022-01-16 15:00:00 2022-01-16 16:12:50 [facility] BLDG[facility] 1.2.840.114 350.1.13.10 4.2.7.2.686 [id number] [facility] 2022-01-16 00:00:00 2022-01-16 00:00:00 Orders Only Doctor Unassigned, [place] [facility] 1.2840.114 350.1.13.10 4.2.7.2.686 [id number] [facility] 2021-11-30 12:13:29 2021-11-30 23:59:00 Hospital Encounter Johanna Naranjo [facility] 1.2840.114 350.1.13.10 4.2.7.2.686 [id number] [facility] 2021-11-30 12:15:00 2021-11-30 12:30:00 Brewery Pumper Visit Pob, Adc Lab Main Matt [facility] BUILDING 1.2840.114 350.1.13.10 4.2.7.2.686 [id number] [facility] 2021-11-30 12:15:00 2021-11-30 12:15:00 Outpatient R APPLE NARANJOEdel NARANJO [facility] [id number] [facility] 2021-11-30 11:30:00 2021-11-30 11:58:43 Outpatient R APPLE NARANJOEdel NARANJO [facility] [id number] [facility] 2021-11-30 11:30:00 2021-11-30 11:58:43 Office Visit Apple Naranjoedel [facility] BUILDING 1..114 350.1.13.10 4.2.7.2.686 [id number] [facility] 2021-11-21 00:00:00 2021-11-21 00:00:00 Telephone Addi Mallory [facility] 1.2840.114 350.1.13.10 4.2.7.2.686 [id number] [facility] 2021-09-13 00:00:00 2021-09-13 00:00:00 Telephone Krish Singer [facility] 1.114 350.1.13.10 4.2.7.2.686 [id number] [facility] 2021-09-05 13:10:16 2021-09-05 13:54:57 [facility] 1.114 350.1.13.10 4.2.7.2.686 [id number] [facility] 2021-09-05 13:00:00 2021-09-05 13:00:00 Outpatient SUNITA SRINIVASAN [facility] [id number] [facility] 2021-09-05 10:48:21 2021-09-05 11:26:42 Office Visit Addi Mallory [facility]?Danielito acosta Medical Office Building 1.114 350.1.13.10 4.2.7.2.686 [id number] [facility] 2021-09-05 00:00:00 2021-09-05 00:00:00 Orders Only Doctor Unassigned, [place] [facility] 1.114 350.1.13.10 4.2.7.2.686 [id number] [facility] 2021-08-29 09:20:00 2021-08-29 09:20:00 Outpatient ADDI GRAJEDA HOWARD [facility] [id number] [facility] 2021-08-29 00:00:00 2021-08-29 00:00:00 Patient Secure Jose Ko [facility] 1.114 350.1.13.10 4.2.7.2.686 [id number] [facility] 2021-08-24 00:00:00 2021-08-24 00:00:00 Telephone Addi Mallory [facility] Michaela acosta Medical Office Building 1.2.840.114 350.1.13.10 4.2.7.2.686 [id number] [facility] 2021-08-17 00:00:00 2021-08-17 00:00:00 Patient Secure Jose Stein [facility] 1.84.114 350.1.13.10 4.2.7.2.686 [id number] [facility] 2021-08-11 12:45:00 2021-08-11 12:45:00 Outpatient R STEPHANIA OKEEFE [facility] [id number] [facility] 2021-08-11 11:08:37 2021-08-11 11:23:37 Brewery Pumper Visit Pob, Adc Lab Main Stephania Okeefe [facility] 1.84.114 [id number] [id number] [id number] [facility] 2021-08-10 13:35:36 2021-08-10 14:27:23 Office Visit Jose Stein [facility] 1.2.114 [id number] [id number] [id number] [facility] 2021-08-10 13:35:36 2021-08-10 14:27:23 Office Visit Jose Stein [facility] 1.2.114 350.1.13.10 4.2.7.2.686 [id number] [facility] 2021-08-10 13:45:00 2021-08-10 13:45:00 Outpatient R JOSE STEIN [facility] [id number] [facility] 2021-08-10 00:00:00 2021-08-10 00:00:00 Telephone Jose Stein [facility] [id number] [id number] [id number] [id number] [facility] 2021-08-03 11:00:00 2021-08-03 11:00:00 Outpatient R JOHANNA NARANJO SHIWAN [facility] [id number] [facility] 2021-07-27 18:20:00 2021-07-27 18:20:00 Outpatient R [facility] [id number] [facility] 2021-07-25 09:00:00 2021-07-25 09:00:00 Outpatient SUNITA SRINIVASAN [facility] [id number] [facility] 2021-07-11 14:45:00 2021-07-11 14:45:00 Outpatient NAGA BHANDARI [facility] [id number] [facility] 2021-06-13 14:30:00 2021-06-13 14:30:00 Outpatient R MARIANNE SAMUELS [facility] [id number] [facility] 2021-05-23 10:45:00 2021-05-23 10:45:00 Outpatient NAGA BHANDARI [facility] [id number] [facility] 2021-05-18 09:20:00 2021-05-18 09:20:00 Outpatient R JOHN QUINTANA [facility] [id number] [facility] 2021-05-08 09:30:00 2021-05-08 09:30:00 Outpatient SUNITA SRINIVASAN [facility] [id number] [facility] 2021-04-25 13:15:00 2021-04-25 13:15:00 Outpatient R ALFONZO ALVAREZ [facility] [id number] [facility] 2021-02-10 15:00:00 2021-02-10 15:00:00 Outpatient ADDI GRAJEDA HOWARD [facility] [id number] [facility] 2021-02-02 00:00:00 2021-02-02 00:00:00 Patient Outreach Rafa Genstephanie Wahl [facility] [id number] [id number] [id number] [id number] 2021-01-05 13:00:00 2021-01-05 13:00:00 Outpatient LORIE RAMEY [facility] [id number] [facility] 2020-12-26 10:45:00 2020-12-26 10:45:00 Outpatient R [facility] [id number] [facility] 2020-12-12 10:57:30 2020-12-12 15:38:19 Office Visit Milan Elizalde [facility] [id number] [id number] [id number] [id number] 2020-12-12 11:00:00 2020-12-12 11:00:00 Outpatient JOSE YOUNG [facility] [id number] [facility] 2020-12-08 11:40:00 2020-12-08 11:40:00 Outpatient R KAY MARROQUIN [facility] [id number] [facility] 2020-10-21 15:20:00 2020-10-21 15:20:00 Outpatient SARA SORIA [facility] [id number] [facility] 2020-10-10 11:15:00 2020-10-10 11:15:00 Outpatient R [facility] [id number] [facility] 2020-09-23 15:00:00 2020-09-23 15:00:00 Outpatient R [facility] [id number] [facility] 2020-08-29 09:20:00 2020-08-29 09:20:00 Outpatient ADDI GRAJEDA HOWARD [facility] [id number] [facility] 2020-08-22 16:00:00 2020-08-22 16:00:00 Outpatient ADDI GRAJEDA HOWARD [facility] [id number] [facility] 2020-08-19 09:20:00 2020-08-19 09:20:00 Outpatient ADDI GRAJEDA HOWARD [facility] [id number] [facility] 2020-06-27 13:00:00 2020-06-27 13:00:00 Outpatient STEPHANIA ORANTES [facility] [id number] [facility] 2020-04-22 14:15:00 2020-04-22 14:15:00 Outpatient JULIO C MESA [facility] [id number] [facility] 2020-03-18 14:00:00 2020-03-18 14:00:00 Outpatient JULIO C MESA [facility] [id number] [facility] 2020-02-22 13:30:00 2020-02-22 13:30:00 Outpatient SHAQ FLORES [facility] [id number] [facility] 2020-01-13 10:10:00 2020-01-13 10:10:00 Outpatient AUGIE DEWITT [facility] [id number] [facility] 2019-12-30 10:00:00 2019-12-30 11:30:09 Outpatient AUGIE DEWITT [facility] [id number] [facility] 2019-11-15 12:00:00 2019-11-15 13:29:33 Outpatient JUSTINE PETERSON [facility] [id number] [facility] 2019-09-24 10:00:00 2019-09-24 10:40:47 Outpatient [facility] [id number] [facility] Results Test Description Test Time Test Comments Results Result Co mments Source Alexx Soliman AustinHEMOGLOBIN [id number] 00:00:00* Test Item Value Reference Range Interpretation Comme nts HEMOGLOBIN A1c (test code = 44121) 5.1 % Alexx MendozaLIPID [id number] 00:00:00* Test Item Value Reference Range Interpretation Comme nts CHOLESTEROL (test code = 2210) 181 MG/DL TRIGLYCERIDES (test code = 2232) 67 MG/DL HDL CHOLESTEROL (test code = 2220) 89 MG/DL CALC LDL CHOL (test code = 2237) 78 MG/DL RISK RATIO LDL/HDL (test cod e = 2238) 0.88 RATIO Alexx MendozaCOMPREHENSIVE METABOLIC [id number] 00:00:00* Test Item Value Reference Range Interpretation Comme nts GLUCOSE (test code = 2217) 78 MG/DL BUN (test code = 2208) 15 MG/DL CREATININE (test code = 2214) 0.96 MG/DL eGFR (2020 CKD-EPI) (test co de = 08100) 71 ML/MIN/1.73 CALC BUN/CREAT (test code = 2235) 16 RATIO SODIUM (test code = 2231) 140 MEQ/L POTASSIUM (test code = 2228) 4.9 MEQ/L CHLORIDE (test code = 2215) 104 MEQ/L CARBON DIOXIDE (test code = 2206) 24 MEQ/L CALCIUM (test code = 2209) 9.7 MG/DL PROTEIN, TOTAL (test code = 2229) 7.8 G/DL ALBUMIN (test code = 2201) 4.8 G/DL CALC GLOBULIN (test code = 2240) 3.0 G/DL CALC A/G RATIO (test code = 2234) 1.6 RATIO BILIRUBIN, TOTAL (test code = 2207) 0.3 MG/DL ALKALINE PHOSPHATASE (test code = 2204) 73 U/L AST (test code = 2218) 33 U/L ALT (test code = 2219) 36 U/L Alexx MendozaHEMOGLOBIN [id number] 00:00:00* Test Item Value Reference Range Interpretation Comme nts HEMOGLOBIN A1c (test code = 69069) 5.1 % Alexx MendozaLIPID [id number] 00:00:00* Test Item Value Reference Range Interpretation Comme nts CHOLESTEROL (test code = 2210) 181 MG/DL TRIGLYCERIDES (test code = 2232) 67 MG/DL HDL CHOLESTEROL (test code = 2220) 89 MG/DL CALC LDL CHOL (test code = 2237) 78 MG/DL RISK RATIO LDL/HDL (test cod e = 2238) 0.88 RATIO Alexx MendozaCOMPREHENSIVE METABOLIC [id number] 00:00:00* Test Item Value Reference Range Interpretation Comme nts GLUCOSE (test code = 2217) 78 MG/DL BUN (test code = 2208) 15 MG/DL CREATININE (test code = 2214) 0.96 MG/DL eGFR (2020 CKD-EPI) (test co de = 01839) 71 ML/MIN/1.73 CALC BUN/CREAT (test code = 2235) 16 RATIO SODIUM (test code = 2231) 140 MEQ/L POTASSIUM (test code = 2228) 4.9 MEQ/L CHLORIDE (test code = 2215) 104 MEQ/L CARBON DIOXIDE (test code = 2206) 24 MEQ/L CALCIUM (test code = 2209) 9.7 MG/DL PROTEIN, TOTAL (test code = 2229) 7.8 G/DL ALBUMIN (test code = 2201) 4.8 G/DL CALC GLOBULIN (test code = 2240) 3.0 G/DL CALC A/G RATIO (test code = 2234) 1.6 RATIO BILIRUBIN, TOTAL (test code = 2207) 0.3 MG/DL ALKALINE PHOSPHATASE (test code = 2204) 73 U/L AST (test code = 2218) 33 U/L ALT (test code = 2219) 36 U/L Alexx MendozaHEMOGLOBIN [id number] 00:00:00* Test Item Value Reference Range Interpretation Comme nts HEMOGLOBIN A1c (test code = 46652) 5.1 % Alexx MendozaLIPID [id number] 00:00:00* Test Item Value Reference Range Interpretation Comme nts CHOLESTEROL (test code = 2210) 181 MG/DL TRIGLYCERIDES (test code = 2232) 67 MG/DL HDL CHOLESTEROL (test code = 2220) 89 MG/DL CALC LDL CHOL (test code = 2237) 78 MG/DL RISK RATIO LDL/HDL (test cod e = 2238) 0.88 RATIO Alexx MendozaHERPES SIMPLEX AB, [id number] 17:19:54* Test Item Value Reference Range Interpretation Comme nts HERPES SIMPLEX AB, IgM (test code = 93851) 0.43 INDEX SEE BELOW INTERPRETATION U NITS RANGE ----- ----- NEGATIVE INDEX <=0.89 EQUIVOCAL INDEX 0.90-1.09 POSITIVE INDEX >=1.10 HERPES SIMPLEX AB, [id number] 00:00:00* Test Item Value Reference Range Interpretation Comme nts HERPES SIMPLEX AB, IgM (test code = 82065) 0.43 INDEX Alexx MendozaHERPES SIMPLEX AB, [id number] 00:00:00* Test Item Value Reference Range Interpretation Comme nts HERPES SIMPLEX AB, IgM (test code = 03957) 0.43 INDEX Alexx Soliman AustinHERPES SIMPLEX AB, [id number] 00:00:00* Test Item Value Reference Range Interpretation Comme nts HERPES SIMPLEX AB, IgM (test code = 86986) 0.43 INDEX Alexx Soliman AustinHERPES SIMPLEX AB, [id number] 00:00:00* Test Item Value Reference Range Interpretation Comme nts HERPES SIMPLEX AB, IgM (test code = 55274) 0.43 INDEX Alexx Soliman AustinHERPES SIMPLEX AB, [id number] 00:00:00* Test Item Value Reference Range Interpretation Comme nts HERPES SIMPLEX AB, IgM (test code = 54452) 0.43 INDEX Alexx Soliman AustinHERPES SIMPLEX AB, [id number] 00:00:00* Test Item Value Reference Range Interpretation Comme nts HERPES SIMPLEX AB, IgM (test code = 36090) 0.43 INDEX Alexx Soliman AustinHERPES SIMPLEX AB, [id number] 00:00:00* Test Item Value Reference Range Interpretation Comme nts HERPES SIMPLEX AB, IgM (test code = 34859) 0.43 INDEX Alexx MendozaTRICHOMONAS, NAAT, [id number] 17:37:35* Test Item Value Reference Range Interpretation Comme nts TRICHOMONAS, NAAT, URINE (test code = 77247) NEGATIVE NEGATIVE Testing is perfo rmed with Ramiro VÍCTOR 6800/8800 method usingreal-time polymerase chain reaction (PCR) method. A negative result does not exclude low level infection, specimensampling error, or collection error. UNLESS OTHERWISE INDICATED, ALL TESTING PERFORMED AT [facility] [address] [place] [address] STEEPING PRESS OPERATOR: ELI KOVACS M.D. [place] NUMBER [id number] [facility] [place]. [id number] VAGINAL PATHOGENS DNA [id number] 16:43:22* Test Item Value Reference Range Interpretation Comme nts MADDISON SPECIES (test code = ) NEGATIVE NEGATIVE G. VAGINALIS (test code = 75365) NEGATIVE NEGATIVE T. VAGINALIS (test code = 32371) NEGATIVE NEGATIVE Note: The [employer] VPIII Microbial Identification Testis a DNA probe test intended for use in the detectionand identification of Maddison species, Gardnerellavaginalis and Trichomonas vaginalis nucleic acid. HERPES SIMPLEX 1/2 AB, IgG [id number] 04:58:53* Test Item Value Reference Range Interpretation Comme nts HERPES SIMPLEX 1 AB, IgG (test code = 35635) 0.066 INDEX SEE BELOW INTERPRETATION U NITS RANGE ----- ----- NON-REACTIVE INDEX <1.000 REACTIVE INDEX >=1.000 HERPES SIMPLEX 2 AB, IgG (test code = 45729) 9.530 INDEX SEE BELOW H INTERPRETATION U NITS RANGE ----- ----- NON-REACTIVE INDEX <1.000 REACTIVE INDEX >=1.000 HERPES SIMPLEX 1/2 ANTIBODY, [id number] 00:00:00* Test Item Value Reference Range Interpretation Comme nts HERPES SIMPLEX 1 AB, IgG (te st code = 29726) 0.066 INDEX HERPES SIMPLEX 2 AB, IgG (te st code = 05879) 9.530 INDEX Alexx Soliman AustinVAGINAL PATHOGENS DNA [id number] 00:00:00* Test Item Value Reference Range Interpretation Comme nts MADDISON SPECIES (test code = ) NEGATIVE G. VAGINALIS (test code = 17383) NEGATIVE T. VAGINALIS (test code = 22891) NEGATIVE Alexx Soliman AustinTRICHOMONAS, URINE, [id number] 00:00:00* Test Item Value Reference Range Interpretation Comme nts TRICHOMONAS, NAAT, URINE (te st code = 74582) NEGATIVE Alexx Soliman AustinHERPES SIMPLEX 1/2 ANTIBODY, [id number] 00:00:00* Test Item Value Reference Range Interpretation Comme nts HERPES SIMPLEX 1 AB, IgG (te st code = 01448) 0.066 INDEX HERPES SIMPLEX 2 AB, IgG (te st code = 03389) 9.530 INDEX Alexx Soliman AustinVAGINAL PATHOGENS DNA [id number] 00:00:00* Test Item Value Reference Range Interpretation Comme nts MADDISON SPECIES (test code = ) NEGATIVE G. VAGINALIS (test code = 94386) NEGATIVE T. VAGINALIS (test code = 23596) NEGATIVE Alexx Soliman AustinTRICHOMONAS, URINE, [id number] 00:00:00* Test Item Value Reference Range Interpretation Comme nts TRICHOMONAS, NAAT, URINE (te st code = 03376) NEGATIVE Alexx Soliman AustinHERPES SIMPLEX 1/2 ANTIBODY, [id number] 00:00:00* Test Item Value Reference Range Interpretation Comme nts HERPES SIMPLEX 1 AB, IgG (te st code = 22779) 0.066 INDEX HERPES SIMPLEX 2 AB, IgG (te st code = 25327) 9.530 INDEX Alexx Soliman AustinVAGINAL PATHOGENS DNA [id number] 00:00:00* Test Item Value Reference Range Interpretation Comme nts MADDISON SPECIES (test code = ) NEGATIVE G. VAGINALIS (test code = 24793) NEGATIVE T. VAGINALIS (test code = 07728) NEGATIVE Alexx Soliman AustinTRICHOMONAS, URINE, [id number] 00:00:00* Test Item Value Reference Range Interpretation Comme nts TRICHOMONAS, NAAT, URINE (te st code = 71222) NEGATIVE Alexx Soliman AustinHERPES SIMPLEX 1/2 ANTIBODY, [id number] 00:00:00* Test Item Value Reference Range Interpretation Comme nts HERPES SIMPLEX 1 AB, IgG (te st code = 57131) 0.066 INDEX HERPES SIMPLEX 2 AB, IgG (te st code = 66206) 9.530 INDEX Alexx Soliman AustinVAGINAL PATHOGENS DNA [id number] 00:00:00* Test Item Value Reference Range Interpretation Comme nts MADDISON SPECIES (test code = ) NEGATIVE G. VAGINALIS (test code = 07329) NEGATIVE T. VAGINALIS (test code = ) NEGATIVE Alexx Soliman AustinTRICHOMONAS, URINE, [id number] 00:00:00* Test Item Value Reference Range Interpretation Comme nts TRICHOMONAS, NAAT, URINE (te st code = 50097) NEGATIVE Alexx Soliman AustinHERPES SIMPLEX 1/2 ANTIBODY, [id number] 00:00:00* Test Item Value Reference Range Interpretation Comme nts HERPES SIMPLEX 1 AB, IgG (te st code = 76359) 0.066 INDEX HERPES SIMPLEX 2 AB, IgG (te st code = 00989) 9.530 INDEX Alexx Soliman AustinVAGINAL PATHOGENS DNA [id number] 00:00:00* Test Item Value Reference Range Interpretation Comme nts MADDISON SPECIES (test code = ) NEGATIVE G. VAGINALIS (test code = ) NEGATIVE T. VAGINALIS (test code = ) NEGATIVE Alexx Soliman AustinTRICHOMONAS, URINE, [id number] 00:00:00* Test Item Value Reference Range Interpretation Comme nts TRICHOMONAS, NAAT, URINE (te st code = 32220) NEGATIVE Alexx Soliman AustinHERPES SIMPLEX 1/2 ANTIBODY, [id number] 00:00:00* Test Item Value Reference Range Interpretation Comme nts HERPES SIMPLEX 1 AB, IgG (te st code = 21325) 0.066 INDEX HERPES SIMPLEX 2 AB, IgG (te st code = 40685) 9.530 INDEX Alexx Soliman AustinVAGINAL PATHOGENS DNA [id number] 00:00:00* Test Item Value Reference Range Interpretation Comme nts MADDISON SPECIES (test code = ) NEGATIVE G. VAGINALIS (test code = 60526) NEGATIVE T. VAGINALIS (test code = 98117) NEGATIVE Alexx Soliman AustinTRICHOMONAS, URINE, [id number] 00:00:00* Test Item Value Reference Range Interpretation Comme nts TRICHOMONAS, NAAT, URINE (te st code = 16675) NEGATIVE Alexx Soliman AustinHERPES SIMPLEX 1/2 ANTIBODY, [id number] 00:00:00* Test Item Value Reference Range Interpretation Comme nts HERPES SIMPLEX 1 AB, IgG (te st code = 11014) 0.066 INDEX HERPES SIMPLEX 2 AB, IgG (te st code = 91620) 9.530 INDEX Alexx Soliman AustinVAGINAL PATHOGENS DNA [id number] 00:00:00* Test Item Value Reference Range Interpretation Comme nts MADDISON SPECIES (test code = ) NEGATIVE G. VAGINALIS (test code = 72234) NEGATIVE T. VAGINALIS (test code = 45310) NEGATIVE Alexx MendozaTRICHOMONAS, URINE, [id number] 00:00:00* Test Item Value Reference Range Interpretation Comme nts TRICHOMONAS, NAAT, URINE (te st code = 27415) NEGATIVE Alexx MendozaVAGINAL PATHOGENS DNA [id number] 11:49:09* Test Item Value Reference Range Interpretation Comme nts MADDISON SPECIES (test code = ) NEGATIVE NEGATIVE G. VAGINALIS (test code = 65748) NEGATIVE NEGATIVE T. VAGINALIS (test code = 78848) NEGATIVE NEGATIVE Note: The [employer] VPIII Microbial Identification Testis a DNA probe test intended for use in the detectionand identification of Maddison species, Gardnerellavaginalis and Trichomonas vaginalis nucleic acid. UNLESS OTHERWISE INDICATED, ALL TESTING PERFORMED AT [facility] [address] [place] [address] STEEPING PRESS OPERATOR: ELI KOVACS M.D. CLIA NUMBER [id number] [place]. [id number] CULTURE, [id number] 05:56:33SPECIMEN NUMBER: [id number] CULTURE, URINE SPECIMEN NUMBER: [id number] SOURCE: URINE REPORT STATUS: FINAL FINAL REPORT: 08/17/2024 <10,000 CFU/ML UROGENITAL REBECCA PRESENT NO COMMON PATHOGENSCULTURE, [id number] 00:00:00* Test Item Value Reference Range Interpretation Comme nts CULTURE, URINE (test code = 37487) SPECIMEN NUMBER: [id number] Alexx MendozaVAGINAL PATHOGENS DNA [id number] 00:00:00* Test Item Value Reference Range Interpretation Comme nts MADDISON SPECIES (test code = ) NEGATIVE G. VAGINALIS (test code = 55506) NEGATIVE T. VAGINALIS (test code = 71421) NEGATIVE Alexx MendozaCULTURE, [id number] 00:00:00* Test Item Value Reference Range Interpretation Comme nts CULTURE, URINE (test code = 66716) SPECIMEN NUMBER: [id number] Alexx Soliman AustinVAGINAL PATHOGENS DNA [id number] 00:00:00* Test Item Value Reference Range Interpretation Comme nts MADDISON SPECIES (test code = 89785) NEGATIVE G. VAGINALIS (test code = 07407) NEGATIVE T. VAGINALIS (test code = 28772) NEGATIVE Alexx MendozaCULTURE, [id number] 00:00:00* Test Item Value Reference Range Interpretation Comme nts CULTURE, URINE (test code = 74146) SPECIMEN NUMBER: [id number] Alexx Soliman AustinVAGINAL PATHOGENS DNA [id number] 00:00:00* Test Item Value Reference Range Interpretation Comme nts MADDISON SPECIES (test code = ) NEGATIVE G. VAGINALIS (test code = 25657) NEGATIVE T. VAGINALIS (test code = 82755) NEGATIVE Alexx MendozaCULTURE, [id number] 00:00:00* Test Item Value Reference Range Interpretation Comme nts CULTURE, URINE (test code = 49385) SPECIMEN NUMBER: [id number] Alexx Soliman AustinVAGINAL PATHOGENS DNA [id number] 00:00:00* Test Item Value Reference Range Interpretation Comme nts MADDISON SPECIES (test code = 98531) NEGATIVE G. VAGINALIS (test code = 74494) NEGATIVE T. VAGINALIS (test code = 72952) NEGATIVE Alexx MendozaCULTURE, [id number] 00:00:00* Test Item Value Reference Range Interpretation Comme nts CULTURE, URINE (test code = 70012) SPECIMEN NUMBER: [id number] Alexx Soliman AustinVAGINAL PATHOGENS DNA [id number] 00:00:00* Test Item Value Reference Range Interpretation Comme nts MADDISON SPECIES (test code = 44784) NEGATIVE G. VAGINALIS (test code = 33604) NEGATIVE T. VAGINALIS (test code = 93591) NEGATIVE Alexx MendozaCULTURE, [id number] 00:00:00* Test Item Value Reference Range Interpretation Comme nts CULTURE, URINE (test code = 29916) SPECIMEN NUMBER: [id number] Alexx Soliman AustinVAGINAL PATHOGENS DNA [id number] 00:00:00* Test Item Value Reference Range Interpretation Comme nts MADDISON SPECIES (test code = 80558) NEGATIVE G. VAGINALIS (test code = 91079) NEGATIVE T. VAGINALIS (test code = 78715) NEGATIVE Alexx MendozaCULTURE, [id number] 00:00:00* Test Item Value Reference Range Interpretation Comme nts CULTURE, URINE (test code = 59600) SPECIMEN NUMBER: [id number] Alexx Soliman AustinVAGINAL PATHOGENS DNA [id number] 00:00:00* Test Item Value Reference Range Interpretation Comme nts MADDISON SPECIES (test code = 00274) NEGATIVE G. VAGINALIS (test code = 66738) NEGATIVE T. VAGINALIS (test code = 32065) NEGATIVE Alexx MendozaCULTURE, [id number] 00:00:00* Test Item Value Reference Range Interpretation Comme nts CULTURE, URINE (test code = 03717) SPECIMEN NUMBER: [id number] Alexx MendozaVAGINAL PATHOGENS DNA [id number] 00:00:00* Test Item Value Reference Range Interpretation Comme nts MADDISON SPECIES (test code = 12102) NEGATIVE G. VAGINALIS (test code = 65787) NEGATIVE T. VAGINALIS (test code = 79562) NEGATIVE Alexx MendozaCULTURE, [id number] 00:00:00* Test Item Value Reference Range Interpretation Comme nts CULTURE, URINE (test code = 95595) SPECIMEN NUMBER: [id number] Alexx MendozaVAGINAL PATHOGENS DNA [id number] 00:00:00* Test Item Value Reference Range Interpretation Comme nts MADDISON SPECIES (test code = 53882) NEGATIVE G. VAGINALIS (test code = 47399) NEGATIVE T. VAGINALIS (test code = 72055) NEGATIVE Alexx MendozaCULTURE, [id number] 00:00:00* Test Item Value Reference Range Interpretation Comme nts CULTURE, URINE (test code = 65246) SPECIMEN NUMBER: [id number] Alexx MendozaCULTURE, [id number] 00:00:00* Test Item Value Reference Range Interpretation Comme nts CULTURE, URINE (test code = 69071) SPECIMEN NUMBER: [id number] Alexx MendozaCULTURE, [id number] 00:00:00* Test Item Value Reference Range Interpretation Comme nts CULTURE, URINE (test code = 51974) SPECIMEN NUMBER: [id number] Alexx Brantley, [id number] 00:00:00* Test Item Value Reference Range Interpretation Comme nts CULTURE, URINE (test code = 79694) SPECIMEN NUMBER: [id number] Alexx Brantley [id number] 00:00:00* Test Item Value Reference Range Interpretation Comme nts CULTURE, URINE (test code = 18612) SPECIMEN NUMBER: [id number] Alexx Brantley [id number] 00:00:00* Test Item Value Reference Range Interpretation Comme nts CULTURE, URINE (test code = 81994) SPECIMEN NUMBER: [id number] Alexx Brantley [id number] 00:00:00* Test Item Value Reference Range Interpretation Comme nts CULTURE, URINE (test code = 47111) SPECIMEN NUMBER: [id number] Alexx Brantley [id number] 00:00:00* Test Item Value Reference Range Interpretation Comme nts CULTURE, URINE (test code = 61560) SPECIMEN NUMBER: [id number] Alexx Brantley [id number] 00:00:00* Test Item Value Reference Range Interpretation Comme nts CULTURE, URINE (test code = 39498) SPECIMEN NUMBER: [id number] Alexx Brantley [id number] 00:00:00* Test Item Value Reference Range Interpretation Comme nts CULTURE, URINE (test code = 09631) SPECIMEN NUMBER: [id number] Alexx Brantley, [id number] 00:00:00* Test Item Value Reference Range Interpretation Comme nts CULTURE, URINE (test code = 02600) SPECIMEN NUMBER: [id number] Alexx Brantley, [id number] 00:00:00* Test Item Value Reference Range Interpretation Comme nts CULTURE, URINE (test code = 37030) SPECIMEN NUMBER: [id number] Alexx Brantley, [id number] 00:00:00* Test Item Value Reference Range Interpretation Comme nts CULTURE, URINE (test code = 11778) SPECIMEN NUMBER: [id number] Alexx Brantley, [id number] 00:00:00* Test Item Value Reference Range Interpretation Comme nts CULTURE, URINE (test code = 44899) SPECIMEN NUMBER: [id number] Alexx MichaelLTURE, [id number] 00:00:00* Test Item Value Reference Range Interpretation Comme nts CULTURE, URINE (test code = 17771) SPECIMEN NUMBER: [id number] Alexx MichaelLTANNA, [id number] 00:00:00* Test Item Value Reference Range Interpretation Comme nts CULTURE, URINE (test code = 70694) SPECIMEN NUMBER: [id number] Alexx MendozaCULTURE, [id number] 00:00:00* Test Item Value Reference Range Interpretation Comme nts CULTURE, URINE (test code = 98405) SPECIMEN NUMBER: [id number] Alexx MichaelLTANNA, [id number] 00:00:00* Test Item Value Reference Range Interpretation Comme nts CULTURE, URINE (test code = 86817) SPECIMEN NUMBER: [id number] Alexx MichaelLTANNA, [id number] 00:00:00* Test Item Value Reference Range Interpretation Comme nts CULTURE, URINE (test code = 03239) SPECIMEN NUMBER: [id number] Alexx MendozaCULTANNA, [id number] 00:00:00* Test Item Value Reference Range Interpretation Comme nts CULTURE, URINE (test code = 13633) SPECIMEN NUMBER: [id number] Alexx MichaelLTANNA, [id number] 00:00:00* Test Item Value Reference Range Interpretation Comme nts CULTURE, URINE (test code = 86649) SPECIMEN NUMBER: [id number] Alexx MichaelLTURE, [id number] 00:00:00* Test Item Value Reference Range Interpretation Comme nts CULTURE, URINE (test code = 60905) SPECIMEN NUMBER: [id number] Alexx MendozaLIPID [id number] 00:00:00* Test Item Value Reference Range Interpretation Comme nts CHOLESTEROL (test code = 2210) 153 MG/DL TRIGLYCERIDES (test code = 2232) 74 MG/DL HDL CHOLESTEROL (test code = 2220) 64 MG/DL CALC LDL CHOL (test code = 2237) 74 MG/DL RISK RATIO LDL/HDL (test cod e = 2238) 1.16 RATIO Alexx MendozaCOMPREHENSIVE METABOLIC [id number] 00:00:00* Test Item Value Reference Range Interpretation Comme nts GLUCOSE (test code = 2217) 88 MG/DL BUN (test code = 2208) 16 MG/DL CREATININE (test code = 2214) 0.98 MG/DL eGFR (2020 CKD-EPI) (test co de = 02329) 69 ML/MIN/1.73 CALC BUN/CREAT (test code = [...] = 2219) 36 U/L Alexx MendozaCBC W/AUTO [id number] 00:00:00* Test Item Value Reference Range Interpretation [...] ABS NUCLEATED RBCS (test cod e = 43049) 0.00 K/UL Alexx MendozaHEMOGLOBIN [id number] 00:00:00* Test Item Value Reference Range Interpretation Comme nts HEMOGLOBIN A1c (test code = 21256) 5.6 % Alexx MendozaALBUMIN/CREATININE RATIO, RANDOM [id number] 00:00:00* Test Item Value Reference Range Interpretation Comme nts CREATININE, URINE, CONC. (te st code = 2072) 53.6 MG/DL ALBUMIN, URINE, RANDOM (test code = 34887) 0.8 MG/DL CALC ALBUMIN/CREAT, RND (christina t code = 97806) 15 MG/G Alexx MendozaLIPID [id number] 00:00:00* Test Item Value Reference Range Interpretation Comme nts CHOLESTEROL (test code = 2210) 153 MG/DL TRIGLYCERIDES (test code = 2232) 74 MG/DL HDL CHOLESTEROL (test code = 2220) 64 MG/DL CALC LDL CHOL (test code = 2237) 74 MG/DL RISK RATIO LDL/HDL (test cod e = 2238) 1.16 RATIO Alexx MendozaCOMPREHENSIVE METABOLIC [id number] 00:00:00* Test Item Value Reference Range Interpretation Comme nts GLUCOSE (test code = 2217) 88 MG/DL BUN (test code = 2208) 16 MG/DL CREATININE (test code = 2214) 0.98 MG/DL eGFR (2020 CKD-EPI) (test co de = 81220) 69 ML/MIN/1.73 CALC BUN/CREAT (test code = [...] (test code = 2219) 36 U/L [facility]x oSliman [facility] W/AUTO [id number] 00:00:00* Test Item Value Reference Range Interpretation [...] ABS NUCLEATED RBCS (test cod e = 48886) 0.00 K/UL Alexx MendozaHEMOGLOBIN [id number] 00:00:00* Test Item Value Reference Range Interpretation Comme chele HEMOGLOBIN A1c (test code = 47972) 5.6 % Alexx MendozaALBUMIN/CREATININE RATIO, RANDOM [id number] 00:00:00* Test Item Value Reference Range Interpretation Comme chele CREATININE, URINE, CONC. (te st code = 2072) 53.6 MG/DL ALBUMIN, URINE, RANDOM (test code = 08825) 0.8 MG/DL CALC ALBUMIN/CREAT, RND (christina t code = 97662) 15 MG/G Alexx MendozaLIPID [id number] 00:00:00* Test Item Value Reference Range Interpretation Comme nts CHOLESTEROL (test code = 2210) 153 MG/DL TRIGLYCERIDES (test code = 2232) 74 MG/DL HDL CHOLESTEROL (test code = 2220) 64 MG/DL CALC LDL CHOL (test code = 2237) 74 MG/DL RISK RATIO LDL/HDL (test cod e = 2238) 1.16 RATIO Alexx MendozaCOMPREHENSIVE METABOLIC [id number] 00:00:00* Test Item Value Reference Range Interpretation Comme nts GLUCOSE (test code = 2217) 88 MG/DL BUN (test code = 2208) 16 MG/DL CREATININE (test code = 2214) 0.98 MG/DL eGFR (2020 CKD-EPI) (test co de = 92812) 69 ML/MIN/1.73 CALC BUN/CREAT (test code = [...] = 2219) 36 U/L Alexx MendozaCBC W/AUTO [id number] 00:00:00* Test Item Value Reference Range Interpretation [...] ABS NUCLEATED RBCS (test cod e = 29691) 0.00 K/UL Alexx MendozaHEMOGLOBIN [id number] 00:00:00* Test Item Value Reference Range Interpretation Comme nts HEMOGLOBIN A1c (test code = 41135) 5.6 % Alexx MendozaALBUMIN/CREATININE RATIO, RANDOM [id number] 00:00:00* Test Item Value Reference Range Interpretation Comme nts CREATININE, URINE, CONC. (te st code = 2072) 53.6 MG/DL ALBUMIN, URINE, RANDOM (test code = 09164) 0.8 MG/DL CALC ALBUMIN/CREAT, RND (christina t code = 78451) 15 MG/G Alexx MendozaLIPID [id number] 00:00:00* Test Item Value Reference Range Interpretation Comme nts CHOLESTEROL (test code = 2210) 153 MG/DL TRIGLYCERIDES (test code = 2232) 74 MG/DL HDL CHOLESTEROL (test code = 2220) 64 MG/DL CALC LDL CHOL (test code = 2237) 74 MG/DL RISK RATIO LDL/HDL (test cod e = 2238) 1.16 RATIO Alexx MendozaCOMPREHENSIVE METABOLIC [id number] 00:00:00* Test Item Value Reference Range Interpretation Comme nts GLUCOSE (test code = 2217) 88 MG/DL BUN (test code = 2208) 16 MG/DL CREATININE (test code = 2214) 0.98 MG/DL eGFR (2020 CKD-EPI) (test co de = 86646) 69 ML/MIN/1.73 CALC BUN/CREAT (test code = [...] = 2219) 36 U/L Alexx MendozaCBC W/AUTO [id number] 00:00:00* Test Item Value Reference Range Interpretation [...] ABS NUCLEATED RBCS (test cod e = 83858) 0.00 K/UL Alexx MendozaHEMOGLOBIN [id number] 00:00:00* Test Item Value Reference Range Interpretation Comme nts HEMOGLOBIN A1c (test code = 23363) 5.6 % Alexx MendozaALBUMIN/CREATININE RATIO, RANDOM [id number] 00:00:00* Test Item Value Reference Range Interpretation Comme nts CREATININE, URINE, CONC. (te st code = 2072) 53.6 MG/DL ALBUMIN, URINE, RANDOM (test code = 33903) 0.8 MG/DL CALC ALBUMIN/CREAT, RND (christina t code = 38463) 15 MG/G Alexx MendozaLIPID [id number] 00:00:00* Test Item Value Reference Range Interpretation Comme nts CHOLESTEROL (test code = 2210) 153 MG/DL TRIGLYCERIDES (test code = 2232) 74 MG/DL HDL CHOLESTEROL (test code = 2220) 64 MG/DL CALC LDL CHOL (test code = 2237) 74 MG/DL RISK RATIO LDL/HDL (test cod e = 2238) 1.16 RATIO Alexx MendozaCOMPREHENSIVE METABOLIC [id number] 00:00:00* Test Item Value Reference Range Interpretation Comme nts GLUCOSE (test code = 2217) 88 MG/DL BUN (test code = 2208) 16 MG/DL CREATININE (test code = 2214) 0.98 MG/DL eGFR (2020 CKD-EPI) (test co de = 62434) 69 ML/MIN/1.73 CALC BUN/CREAT (test code = [...] (test code = 2219) 36 U/L [facility]x [facility] [id number] 00:00:00* Test Item Value Reference Range Interpretation [...] ABS NUCLEATED RBCS (test cod e = 04369) 0.00 K/UL Alexx MendozaHEMOGLOBIN [id number] 00:00:00* Test Item Value Reference Range Interpretation Comme nts HEMOGLOBIN A1c (test code = 96806) 5.6 % Alexx MendozaALBUMIN/CREATININE RATIO, RANDOM [id number] 00:00:00* Test Item Value Reference Range Interpretation Comme nts CREATININE, URINE, CONC. (te st code = 2072) 53.6 MG/DL ALBUMIN, URINE, RANDOM (test code = 62188) 0.8 MG/DL CALC ALBUMIN/CREAT, RND (christina t code = 41755) 15 MG/G Alexx MendozaLIPID [id number] 00:00:00* Test Item Value Reference Range Interpretation Comme nts CHOLESTEROL (test code = 2210) 153 MG/DL TRIGLYCERIDES (test code = 2232) 74 MG/DL HDL CHOLESTEROL (test code = 2220) 64 MG/DL CALC LDL CHOL (test code = 2237) 74 MG/DL RISK RATIO LDL/HDL (test cod e = 2238) 1.16 RATIO Alexx MendozaCOMPREHENSIVE METABOLIC [id number] 00:00:00* Test Item Value Reference Range Interpretation Comme nts GLUCOSE (test code = 2217) 88 MG/DL BUN (test code = 2208) 16 MG/DL CREATININE (test code = 2214) 0.98 MG/DL eGFR (2020 CKD-EPI) (test co de = 73102) 69 ML/MIN/1.73 CALC BUN/CREAT (test code = [...] code = 2219) 36 U/L Alexx Soliman [facility]O [id number] 00:00:00* Test Item Value Reference Range Interpretation [...] ABS NUCLEATED RBCS (test cod e = 14161) 0.00 K/UL Alexx F AustinHEMOGLOBIN [id number] 00:00:00* Test Item Value Reference Range Interpretation Comme chele HEMOGLOBIN A1c (test code = 16959) 5.6 % Alexx MendozaALBUMIN/CREATININE RATIO, RANDOM [id number] 00:00:00* Test Item Value Reference Range Interpretation Comme chele CREATININE, URINE, CONC. (te st code = 2072) 53.6 MG/DL ALBUMIN, URINE, RANDOM (test code = 44179) 0.8 MG/DL CALC ALBUMIN/CREAT, RND (christina t code = 90052) 15 MG/G Alexx MendozaLIPID [id number] 00:00:00* Test Item Value Reference Range Interpretation Comme nts CHOLESTEROL (test code = 2210) 153 MG/DL TRIGLYCERIDES (test code = 2232) 74 MG/DL HDL CHOLESTEROL (test code = 2220) 64 MG/DL CALC LDL CHOL (test code = 2237) 74 MG/DL RISK RATIO LDL/HDL (test cod e = 2238) 1.16 RATIO Alexx MendozaCOMPREHENSIVE METABOLIC [id number] 00:00:00* Test Item Value Reference Range Interpretation Comme nts GLUCOSE (test code = 2217) 88 MG/DL BUN (test code = 2208) 16 MG/DL CREATININE (test code = 2214) 0.98 MG/DL eGFR (2020 CKD-EPI) (test co de = 18700) 69 ML/MIN/1.73 CALC BUN/CREAT (test code = [...] = 2219) 36 U/L Alexx MendozaCBC W/AUTO [id number] 00:00:00* Test Item Value Reference Range Interpretation [...] ABS NUCLEATED RBCS (test cod e = 88860) 0.00 K/UL Alexx MendozaHEMOGLOBIN [id number] 00:00:00* Test Item Value Reference Range Interpretation Comme nts HEMOGLOBIN A1c (test code = 32152) 5.6 % Alexx MendozaALBUMIN/CREATININE RATIO, RANDOM [id number] 00:00:00* Test Item Value Reference Range Interpretation Comme nts CREATININE, URINE, CONC. (te st code = 2072) 53.6 MG/DL ALBUMIN, URINE, RANDOM (test code = 67982) 0.8 MG/DL CALC ALBUMIN/CREAT, RND (christina t code = 98950) 15 MG/G Alexx MendozaLIPID [id number] 00:00:00* Test Item Value Reference Range Interpretation Comme nts CHOLESTEROL (test code = 2210) 153 MG/DL TRIGLYCERIDES (test code = 2232) 74 MG/DL HDL CHOLESTEROL (test code = 2220) 64 MG/DL CALC LDL CHOL (test code = 2237) 74 MG/DL RISK RATIO LDL/HDL (test cod e = 2238) 1.16 RATIO Alexx MendozaCOMPREHENSIVE METABOLIC [id number] 00:00:00* Test Item Value Reference Range Interpretation Comme nts GLUCOSE (test code = 2217) 88 MG/DL BUN (test code = 2208) 16 MG/DL CREATININE (test code = 2214) 0.98 MG/DL eGFR (2020 CKD-EPI) (test co de = 66427) 69 ML/MIN/1.73 CALC BUN/CREAT (test code = [...] = 2219) 36 U/L Alexx MendozaCBC W/AUTO [id number] 00:00:00* Test Item Value Reference Range Interpretation [...] ABS NUCLEATED RBCS (test cod e = 75029) 0.00 K/UL Alexx MendozaHEMOGLOBIN [id number] 00:00:00* Test Item Value Reference Range Interpretation Comme nts HEMOGLOBIN A1c (test code = 40601) 5.6 % Alexx MendozaALBUMIN/CREATININE RATIO, RANDOM [id number] 00:00:00* Test Item Value Reference Range Interpretation Comme nts CREATININE, URINE, CONC. (te st code = 2072) 53.6 MG/DL ALBUMIN, URINE, RANDOM (test code = 48008) 0.8 MG/DL CALC ALBUMIN/CREAT, RND (christina t code = 26968) 15 MG/G Alexx MendozaLIPID [id number] 00:00:00* Test Item Value Reference Range Interpretation Comme nts CHOLESTEROL (test code = 2210) 153 MG/DL TRIGLYCERIDES (test code = 2232) 74 MG/DL HDL CHOLESTEROL (test code = 2220) 64 MG/DL CALC LDL CHOL (test code = 2237) 74 MG/DL RISK RATIO LDL/HDL (test cod e = 2238) 1.16 RATIO Alexx MendozaCOMPREHENSIVE METABOLIC [id number] 00:00:00* Test Item Value Reference Range Interpretation Comme nts GLUCOSE (test code = 2217) 88 MG/DL BUN (test code = 2208) 16 MG/DL CREATININE (test code = 2214) 0.98 MG/DL eGFR (2020 CKD-EPI) (test co de = 39821) 69 ML/MIN/1.73 CALC BUN/CREAT (test code = [...] code = 2219) 36 U/L Alexx Soliman [facility] W/AUTO [id number] 00:00:00* Test Item Value Reference Range Interpretation [...] ABS NUCLEATED RBCS (test cod e = 03121) 0.00 K/UL Alexx MendozaHEMOGLOBIN [id number] 00:00:00* Test Item Value Reference Range Interpretation Comme nts HEMOGLOBIN A1c (test code = 09359) 5.6 % Alexx MendozaALBUMIN/CREATININE RATIO, RANDOM [id number] 00:00:00* Test Item Value Reference Range Interpretation Comme nts CREATININE, URINE, CONC. (te st code = 2072) 53.6 MG/DL ALBUMIN, URINE, RANDOM (test code = 02561) 0.8 MG/DL CALC ALBUMIN/CREAT, RND (christina t code = 23273) 15 MG/G Alexx MendozaLIPID [id number] 00:00:00* Test Item Value Reference Range Interpretation Comme nts CHOLESTEROL (test code = 2210) 153 MG/DL TRIGLYCERIDES (test code = 2232) 74 MG/DL HDL CHOLESTEROL (test code = 2220) 64 MG/DL CALC LDL CHOL (test code = 2237) 74 MG/DL RISK RATIO LDL/HDL (test cod e = 2238) 1.16 RATIO Alexx MendozaCOMPREHENSIVE METABOLIC [id number] 00:00:00* Test Item Value Reference Range Interpretation Comme nts GLUCOSE (test code = 2217) 88 MG/DL BUN (test code = 2208) 16 MG/DL CREATININE (test code = 2214) 0.98 MG/DL eGFR (2020 CKD-EPI) (test co de = 39513) 69 ML/MIN/1.73 CALC BUN/CREAT (test code = [...] code = 2219) 36 U/L Alexx Soliman RejiCBC W/AUTO [id number] 00:00:00* Test Item Value Reference Range Interpretation [...] ABS NUCLEATED RBCS (test cod e = 43351) 0.00 K/UL Alexx Janny RejiHEMOGLOBIN [id number] 00:00:00* Test Item Value Reference Range Interpretation Comme nts HEMOGLOBIN A1c (test code = 33166) 5.6 % Alexx MendozaALBUMIN/CREATININE RATIO, RANDOM [id number] 00:00:00* Test Item Value Reference Range Interpretation Comme nts CREATININE, URINE, CONC. (te st code = 2072) 53.6 MG/DL ALBUMIN, URINE, RANDOM (test code = 62005) 0.8 MG/DL CALC ALBUMIN/CREAT, RND (christina t code = 58049) 15 MG/G Alexx Soliman AustinLIPID [id number] 00:00:00* Test Item Value Reference Range Interpretation Comme nts CHOLESTEROL (test code = 2210) 153 MG/DL TRIGLYCERIDES (test code = 2232) 74 MG/DL HDL CHOLESTEROL (test code = 2220) 64 MG/DL CALC LDL CHOL (test code = 2237) 74 MG/DL RISK RATIO LDL/HDL (test cod e = 2238) 1.16 RATIO Alexx MendozaCOMPREHENSIVE METABOLIC [id number] 00:00:00* Test Item Value Reference Range Interpretation Comme nts GLUCOSE (test code = 2217) 88 MG/DL BUN (test code = 2208) 16 MG/DL CREATININE (test code = 2214) 0.98 MG/DL eGFR (2020 CKD-EPI) (test co de = 93375) 69 ML/MIN/1.73 CALC BUN/CREAT (test code = [...] (test code = 2219) 36 U/L Alexx F AustinCBC W/AUTO [id number] 00:00:00* Test Item Value Reference Range Interpretation [...] ABS NUCLEATED RBCS (test cod e = 08344) 0.00 K/UL Alexx MendozaHEMOGLOBIN [id number] 00:00:00* Test Item Value Reference Range Interpretation Comme nts HEMOGLOBIN A1c (test code = 88495) 5.6 % Alexx MendozaALBUMIN/CREATININE RATIO, RANDOM [id number] 00:00:00* Test Item Value Reference Range Interpretation Comme nts CREATININE, URINE, CONC. (te st code = 2072) 53.6 MG/DL ALBUMIN, URINE, RANDOM (test code = 29179) 0.8 MG/DL CALC ALBUMIN/CREAT, RND (christina t code = 14859) 15 MG/G Alexx F AustinLIPID [id number] 00:00:00* Test Item Value Reference Range Interpretation Comme nts CHOLESTEROL (test code = 2210) 153 MG/DL TRIGLYCERIDES (test code = 2232) 74 MG/DL HDL CHOLESTEROL (test code = 2220) 64 MG/DL CALC LDL CHOL (test code = 2237) 74 MG/DL RISK RATIO LDL/HDL (test cod e = 2238) 1.16 RATIO Alexx MendozaCOMPREHENSIVE METABOLIC [id number] 00:00:00* Test Item Value Reference Range Interpretation Comme nts GLUCOSE (test code = 2217) 88 MG/DL BUN (test code = 2208) 16 MG/DL CREATININE (test code = 2214) 0.98 MG/DL eGFR (2020 CKD-EPI) (test co de = 21648) 69 ML/MIN/1.73 CALC BUN/CREAT (test code = [...] = 2219) 36 U/L Alexx MendozaCBC W/AUTO [id number] 00:00:00* Test Item Value Reference Range Interpretation [...] ABS NUCLEATED RBCS (test cod e = 68400) 0.00 K/UL Alexx MendozaHEMOGLOBIN [id number] 00:00:00* Test Item Value Reference Range Interpretation Comme nts HEMOGLOBIN A1c (test code = 38172) 5.6 % Alexx MendozaALBUMIN/CREATININE RATIO, RANDOM [id number] 00:00:00* Test Item Value Reference Range Interpretation Comme nts CREATININE, URINE, CONC. (te st code = 2072) 53.6 MG/DL ALBUMIN, URINE, RANDOM (test code = 40499) 0.8 MG/DL CALC ALBUMIN/CREAT, RND (christina t code = 12314) 15 MG/G Alexx MendozaLIPID [id number] 00:00:00* Test Item Value Reference Range Interpretation Comme nts CHOLESTEROL (test code = 2210) 153 MG/DL TRIGLYCERIDES (test code = 2232) 74 MG/DL HDL CHOLESTEROL (test code = 2220) 64 MG/DL CALC LDL CHOL (test code = 2237) 74 MG/DL RISK RATIO LDL/HDL (test cod e = 2238) 1.16 RATIO Alexx MendozaCOMPREHENSIVE METABOLIC [id number] 00:00:00* Test Item Value Reference Range Interpretation Comme nts GLUCOSE (test code = 2217) 88 MG/DL BUN (test code = 2208) 16 MG/DL CREATININE (test code = 2214) 0.98 MG/DL eGFR (2020 CKD-EPI) (test co de = 26033) 69 ML/MIN/1.73 CALC BUN/CREAT (test code = [...] (test code = 2219) 36 U/L Alexx Janny [facility] W/AUTO [id number] 00:00:00* Test Item Value Reference Range Interpretation [...] ABS NUCLEATED RBCS (test cod e = 83444) 0.00 K/UL Alexx MendozaHEMOGLOBIN [id number] 00:00:00* Test Item Value Reference Range Interpretation Comme nts HEMOGLOBIN A1c (test code = 27636) 5.6 % Alexx MendozaALBUMIN/CREATININE RATIO, RANDOM [id number] 00:00:00* Test Item Value Reference Range Interpretation Comme nts CREATININE, URINE, CONC. (te st code = 2072) 53.6 MG/DL ALBUMIN, URINE, RANDOM (test code = 35344) 0.8 MG/DL CALC ALBUMIN/CREAT, RND (christina t code = 51991) 15 MG/G Alexx MendozaLIPID [id number] 00:00:00* Test Item Value Reference Range Interpretation Comme nts CHOLESTEROL (test code = 2210) 153 MG/DL TRIGLYCERIDES (test code = 2232) 74 MG/DL HDL CHOLESTEROL (test code = 2220) 64 MG/DL CALC LDL CHOL (test code = 2237) 74 MG/DL RISK RATIO LDL/HDL (test cod e = 2238) 1.16 RATIO Alexx MendozaCOMPREHENSIVE METABOLIC [id number] 00:00:00* Test Item Value Reference Range Interpretation Comme nts GLUCOSE (test code = 2217) 88 MG/DL BUN (test code = 2208) 16 MG/DL CREATININE (test code = 2214) 0.98 MG/DL eGFR (2020 CKD-EPI) (test co de = 08115) 69 ML/MIN/1.73 CALC BUN/CREAT (test code = [...] code = 2219) 36 U/L Alexx Soliman RejiCBC W/AUTO [id number] 00:00:00* Test Item Value Reference Range Interpretation [...] ABS NUCLEATED RBCS (test cod e = 36056) 0.00 K/UL Alexx Janny RejiHEMOGLOBIN [id number] 00:00:00* Test Item Value Reference Range Interpretation Comme nts HEMOGLOBIN A1c (test code = 36664) 5.6 % Alexx MendozaALBUMIN/CREATININE RATIO, RANDOM [id number] 00:00:00* Test Item Value Reference Range Interpretation Comme nts CREATININE, URINE, CONC. (te st code = 2072) 53.6 MG/DL ALBUMIN, URINE, RANDOM (test code = 27922) 0.8 MG/DL CALC ALBUMIN/CREAT, RND (christina t code = 36024) 15 MG/G Alexx MendozaLIPID [id number] 00:00:00* Test Item Value Reference Range Interpretation Comme nts CHOLESTEROL (test code = 2210) 153 MG/DL TRIGLYCERIDES (test code = 2232) 74 MG/DL HDL CHOLESTEROL (test code = 2220) 64 MG/DL CALC LDL CHOL (test code = 2237) 74 MG/DL RISK RATIO LDL/HDL (test cod e = 2238) 1.16 RATIO Alexx MendozaCOMPREHENSIVE METABOLIC [id number] 00:00:00* Test Item Value Reference Range Interpretation Comme nts GLUCOSE (test code = 2217) 88 MG/DL BUN (test code = 2208) 16 MG/DL CREATININE (test code = 2214) 0.98 MG/DL eGFR (2020 CKD-EPI) (test co de = 31415) 69 ML/MIN/1.73 CALC BUN/CREAT (test code = [...] = 2219) 36 U/L Alexx MendozaCBC W/AUTO [id number] 00:00:00* Test Item Value Reference Range Interpretation [...] ABS NUCLEATED RBCS (test cod e = 91396) 0.00 K/UL Alexx MendozaHEMOGLOBIN [id number] 00:00:00* Test Item Value Reference Range Interpretation Comme nts HEMOGLOBIN A1c (test code = 44112) 5.6 % Alexx MendozaALBUMIN/CREATININE RATIO, RANDOM [id number] 00:00:00* Test Item Value Reference Range Interpretation Comme nts CREATININE, URINE, CONC. (te st code = 2072) 53.6 MG/DL ALBUMIN, URINE, RANDOM (test code = 82396) 0.8 MG/DL CALC ALBUMIN/CREAT, RND (christina t code = 67996) 15 MG/G Alexx MendozaLIPID [id number] 00:00:00* Test Item Value Reference Range Interpretation Comme nts CHOLESTEROL (test code = 2210) 153 MG/DL TRIGLYCERIDES (test code = 2232) 74 MG/DL HDL CHOLESTEROL (test code = 2220) 64 MG/DL CALC LDL CHOL (test code = 2237) 74 MG/DL RISK RATIO LDL/HDL (test cod e = 2238) 1.16 RATIO Alexx MendozaCOMPREHENSIVE METABOLIC [id number] 00:00:00* Test Item Value Reference Range Interpretation Comme nts GLUCOSE (test code = 2217) 88 MG/DL BUN (test code = 2208) 16 MG/DL CREATININE (test code = 2214) 0.98 MG/DL eGFR (2020 CKD-EPI) (test co de = 76057) 69 ML/MIN/1.73 CALC BUN/CREAT (test code = [...] code = 2219) 36 U/L Alexx Soliman RejiCBC W/AUTO [id number] 00:00:00* Test Item Value Reference Range Interpretation [...] ABS NUCLEATED RBCS (test cod e = 17466) 0.00 K/UL Alexx MendozaHEMOGLOBIN [id number] 00:00:00* Test Item Value Reference Range Interpretation Comme nts HEMOGLOBIN A1c (test code = 31724) 5.6 % Alexx MendozaALBUMIN/CREATININE RATIO, RANDOM [id number] 00:00:00* Test Item Value Reference Range Interpretation Comme nts CREATININE, URINE, CONC. (te st code = 2072) 53.6 MG/DL ALBUMIN, URINE, RANDOM (test code = 16517) 0.8 MG/DL CALC ALBUMIN/CREAT, RND (christina t code = 62077) 15 MG/G Alexx MendozaMR BRAIN WO [id number] 17:30:48EXAM: MR BRAIN WO CONTRAST HISTORY: Headache [...] in the mastoid air cells or paranasalair sinuses.[facility] [ADDED] 2024-02-13 00:00:00* Test Item Value Reference Range Interpretation Comme nts CULTURE, URINE (test code = 54995) SPECIMEN NUMBER: [id number] Alexx MendozaINDICATED URINE CULTURE [ADDED]2024-02-13 00:00:00* Test Item Value Reference Range Interpretation Comme nts CULTURE, URINE (test code = 12467) SPECIMEN NUMBER: [id number] Alexx MendozaINDICATED URINE CULTURE [ADDED]2024-02-13 00:00:00* Test Item Value Reference Range Interpretation Comme nts CULTURE, URINE (test code = 20491) SPECIMEN NUMBER: [id number] Alexx MendozaINDICATED URINE CULTURE [ADDED]2024-02-13 00:00:00* Test Item Value Reference Range Interpretation Comme nts CULTURE, URINE (test code = 17209) SPECIMEN NUMBER: [id number] Alexx MendozaINDICATED URINE CULTURE [ADDED]2024-02-13 00:00:00* Test Item Value Reference Range Interpretation Comme nts CULTURE, URINE (test code = 39833) SPECIMEN NUMBER: [id number] Alexx MendozaINDICATED URINE CULTURE [ADDED]2024-02-13 00:00:00* Test Item Value Reference Range Interpretation Comme nts CULTURE, URINE (test code = 36984) SPECIMEN NUMBER: [id number] Alexx MendozaINDICATED URINE CULTURE [ADDED]2024-02-13 00:00:00* Test Item Value Reference Range Interpretation Comme nts CULTURE, URINE (test code = 11929) SPECIMEN NUMBER: [id number] Alexx Soliman AustinINDICATED URINE CULTURE [ADDED]2024-02-13 00:00:00* Test Item Value Reference Range Interpretation Comme nts CULTURE, URINE (test code = 48486) SPECIMEN NUMBER: [id number] Alexx Soliman AustinINDICATED URINE CULTURE [ADDED]2024-02-13 00:00:00* Test Item Value Reference Range Interpretation Comme nts CULTURE, URINE (test code = 37570) SPECIMEN NUMBER: [id number] Alexx Soliman AustinINDICATED URINE CULTURE [ADDED]2024-02-13 00:00:00* Test Item Value Reference Range Interpretation Comme nts CULTURE, URINE (test code = 21192) SPECIMEN NUMBER: [id number] Alexx Soliman AustinINDICATED URINE CULTURE [ADDED]2024-02-13 00:00:00* Test Item Value Reference Range Interpretation Comme nts CULTURE, URINE (test code = 08548) SPECIMEN NUMBER: [id number] Alexx Soliman AustinINDICATED URINE CULTURE [ADDED]2024-02-13 00:00:00* Test Item Value Reference Range Interpretation Comme nts CULTURE, URINE (test code = 04058) SPECIMEN NUMBER: [id number] Alexx Soliman AustinINDICATED URINE CULTURE [ADDED]2024-02-13 00:00:00* Test Item Value Reference Range Interpretation Comme nts CULTURE, URINE (test code = 91869) SPECIMEN NUMBER: [id number] Alexx Soliman AustinINDICATED URINE CULTURE [ADDED]2024-02-13 00:00:00* Test Item Value Reference Range Interpretation Comme nts CULTURE, URINE (test code = 53329) SPECIMEN NUMBER: [id number] Alexx Soliman AustinINDICATED URINE CULTURE [ADDED]2024-02-13 00:00:00* Test Item Value Reference Range Interpretation Comme nts CULTURE, URINE (test code = 86193) SPECIMEN NUMBER: [id number] Alexx Soliman AustinINDICATED URINE CULTURE [ADDED]2024-02-13 00:00:00* Test Item Value Reference Range Interpretation Comme nts CULTURE, URINE (test code = 46531) SPECIMEN NUMBER: [id number] Alexx Solmian AustinINDICATED URINE CULTURE [ADDED]2024-02-13 00:00:00* Test Item Value Reference Range Interpretation Comme nts CULTURE, URINE (test code = 46144) SPECIMEN NUMBER: [id number] Alexx Soliman AustinINDICATED URINE CULTURE [ADDED]2024-02-13 00:00:00* Test Item Value Reference Range Interpretation Comme nts CULTURE, URINE (test code = 53130) SPECIMEN NUMBER: [id number] Alexx Soliman AustinMICROSCOPIC URINALYSIS, REFLEX [id number] 00:00:00* Test Item Value Reference Range Interpretation Comme nts WHITE BLOOD CELLS (test code = 1513) 6-10 /HPF RED BLOOD CELLS (test code = 1514) 3-5 /HPF EPITHELIAL CELLS (test code = 64868) 0-5 /HPF BACTERIA (test code = 1515) NONE SEEN CASTS, HYALINE (test code = 1517) NONE SEEN Alexx F AustinMICROSCOPIC URINALYSIS, REFLEX [id number] 00:00:00* Test Item Value Reference Range Interpretation Comme nts WHITE BLOOD CELLS (test code = 1513) 6-10 /HPF RED BLOOD CELLS (test code = 1514) 3-5 /HPF EPITHELIAL CELLS (test code = 15610) 0-5 /HPF BACTERIA (test code = 1515) NONE SEEN CASTS, HYALINE (test code = 1517) NONE SEEN Alexx Soliman AustinMICROSCOPIC URINALYSIS, REFLEX [id number] 00:00:00* Test Item Value Reference Range Interpretation Comme nts WHITE BLOOD CELLS (test code = 1513) 6-10 /HPF RED BLOOD CELLS (test code = 1514) 3-5 /HPF EPITHELIAL CELLS (test code = 13962) 0-5 /HPF BACTERIA (test code = 1515) NONE SEEN CASTS, HYALINE (test code = 1517) NONE SEEN Alexx Soliman AustinMICROSCOPIC URINALYSIS, REFLEX [id number] 00:00:00* Test Item Value Reference Range Interpretation Comme nts WHITE BLOOD CELLS (test code = 1513) 6-10 /HPF RED BLOOD CELLS (test code = 1514) 3-5 /HPF EPITHELIAL CELLS (test code = 18276) 0-5 /HPF BACTERIA (test code = 1515) NONE SEEN CASTS, HYALINE (test code = 1517) NONE SEEN Alexx Soliman AustinMICROSCOPIC URINALYSIS, REFLEX [id number] 00:00:00* Test Item Value Reference Range Interpretation Comme nts WHITE BLOOD CELLS (test code = 1513) 6-10 /HPF RED BLOOD CELLS (test code = 1514) 3-5 /HPF EPITHELIAL CELLS (test code = 70262) 0-5 /HPF BACTERIA (test code = 1515) NONE SEEN CASTS, HYALINE (test code = 1517) NONE SEEN Alexx Soliman AustinMICROSCOPIC URINALYSIS, REFLEX [id number] 00:00:00* Test Item Value Reference Range Interpretation Comme nts WHITE BLOOD CELLS (test code = 1513) 6-10 /HPF RED BLOOD CELLS (test code = 1514) 3-5 /HPF EPITHELIAL CELLS (test code = 97040) 0-5 /HPF BACTERIA (test code = 1515) NONE SEEN CASTS, HYALINE (test code = 1517) NONE SEEN Alexx Soliman AustinMICROSCOPIC URINALYSIS, REFLEX [id number] 00:00:00* Test Item Value Reference Range Interpretation Comme nts WHITE BLOOD CELLS (test code = 1513) 6-10 /HPF RED BLOOD CELLS (test code = 1514) 3-5 /HPF EPITHELIAL CELLS (test code = 23671) 0-5 /HPF BACTERIA (test code = 1515) NONE SEEN CASTS, HYALINE (test code = 1517) NONE SEEN [facility] AustinMICROSCOPIC URINALYSIS, REFLEX [id number] 00:00:00* Test Item Value Reference Range Interpretation Comme nts WHITE BLOOD CELLS (test code = 1513) 6-10 /HPF RED BLOOD CELLS (test code = 1514) 3-5 /HPF EPITHELIAL CELLS (test code = 94565) 0-5 /HPF BACTERIA (test code = 1515) NONE SEEN CASTS, HYALINE (test code = 1517) NONE SEEN [facility] AustinMICROSCOPIC URINALYSIS, REFLEX [id number] 00:00:00* Test Item Value Reference Range Interpretation Comme nts WHITE BLOOD CELLS (test code = 1513) 6-10 /HPF RED BLOOD CELLS (test code = 1514) 3-5 /HPF EPITHELIAL CELLS (test code = 31187) 0-5 /HPF BACTERIA (test code = 1515) NONE SEEN CASTS, HYALINE (test code = 1517) NONE SEEN [facility] AustinMICROSCOPIC URINALYSIS, REFLEX [id number] 00:00:00* Test Item Value Reference Range Interpretation Comme nts WHITE BLOOD CELLS (test code = 1513) 6-10 /HPF RED BLOOD CELLS (test code = 1514) 3-5 /HPF EPITHELIAL CELLS (test code = 67705) 0-5 /HPF BACTERIA (test code = 1515) NONE SEEN CASTS, HYALINE (test code = 1517) NONE SEEN [facility] AustinMICROSCOPIC URINALYSIS, REFLEX [id number] 00:00:00* Test Item Value Reference Range Interpretation Comme nts WHITE BLOOD CELLS (test code = 1513) 6-10 /HPF RED BLOOD CELLS (test code = 1514) 3-5 /HPF EPITHELIAL CELLS (test code = 27491) 0-5 /HPF BACTERIA (test code = 1515) NONE SEEN CASTS, HYALINE (test code = 1517) NONE SEEN [facility] AustinMICROSCOPIC URINALYSIS, REFLEX [id number] 00:00:00* Test Item Value Reference Range Interpretation Comme nts WHITE BLOOD CELLS (test code = 1513) 6-10 /HPF RED BLOOD CELLS (test code = 1514) 3-5 /HPF EPITHELIAL CELLS (test code = 55625) 0-5 /HPF BACTERIA (test code = 1515) NONE SEEN CASTS, HYALINE (test code = 1517) NONE SEEN [facility] AustinMICROSCOPIC URINALYSIS, REFLEX [id number] 00:00:00* Test Item Value Reference Range Interpretation Comme nts WHITE BLOOD CELLS (test code = 1513) 6-10 /HPF RED BLOOD CELLS (test code = 1514) 3-5 /HPF EPITHELIAL CELLS (test code = 11637) 0-5 /HPF BACTERIA (test code = 1515) NONE SEEN CASTS, HYALINE (test code = 1517) NONE SEEN [facility] [place]MICR[facility]COP[facility] URINALYSIS, REFLEX [id number] 00:00:00* Test Item Value Reference Range Interpretation Comme nts WHITE BLOOD CELLS (test code = 1513) 6-10 /HPF RED BLOOD CELLS (test code = 1514) 3-5 /HPF EPITHELIAL CELLS (test code = 67772) 0-5 /HPF BACTERIA (test code = 1515) NONE SEEN CASTS, HYALINE (test code = 1517) NONE SEEN Alexx Soliman AustinMICROSCOPIC URINALYSIS, REFLEX [id number] 00:00:00* Test Item Value Reference Range Interpretation Comme nts WHITE BLOOD CELLS (test code = 1513) 6-10 /HPF RED BLOOD CELLS (test code = 1514) 3-5 /HPF EPITHELIAL CELLS (test code = 80623) 0-5 /HPF BACTERIA (test code = 1515) NONE SEEN CASTS, HYALINE (test code = 1517) NONE SEEN Alexx Soliman AustinMICROSCOPIC URINALYSIS, REFLEX [id number] 00:00:00* Test Item Value Reference Range Interpretation Comme nts WHITE BLOOD CELLS (test code = 1513) 6-10 /HPF RED BLOOD CELLS (test code = 1514) 3-5 /HPF EPITHELIAL CELLS (test code = 90304) 0-5 /HPF BACTERIA (test code = 1515) NONE SEEN CASTS, HYALINE (test code = 1517) NONE SEEN Alexx Soliman AustinMICROSCOPIC URINALYSIS, REFLEX [id number] 00:00:00* Test Item Value Reference Range Interpretation Comme nts WHITE BLOOD CELLS (test code = 1513) 6-10 /HPF RED BLOOD CELLS (test code = 1514) 3-5 /HPF EPITHELIAL CELLS (test code = 90978) 0-5 /HPF BACTERIA (test code = 1515) NONE SEEN CASTS, HYALINE (test code = 1517) NONE SEEN Alexx Soliman AustinMICROSCOPIC URINALYSIS, REFLEX [id number] 00:00:00* Test Item Value Reference Range Interpretation Comme nts WHITE BLOOD CELLS (test code = 1513) 6-10 /HPF RED BLOOD CELLS (test code = 1514) 3-5 /HPF EPITHELIAL CELLS (test code = 86031) 0-5 /HPF BACTERIA (test code = 1515) NONE SEEN CASTS, HYALINE (test code = 1517) NONE SEEN Alexx Soliman AustinMICROSCOPIC URINALYSIS, REFLEX [id number] 00:00:00* Test Item Value Reference Range Interpretation Comme nts WHITE BLOOD CELLS (test code = 1513) 0-5 /HPF RED BLOOD CELLS (test code = 1514) 0-2 /HPF EPITHELIAL CELLS (test code = 38891) 0-5 /HPF BACTERIA (test code = 1515) NONE SEEN CASTS, HYALINE (test code = 1517) NONE SEEN Alexx Soliman AustinMICROSCOPIC URINALYSIS, REFLEX [id number] 00:00:00* Test Item Value Reference Range Interpretation Comme nts WHITE BLOOD CELLS (test code = 1513) 0-5 /HPF RED BLOOD CELLS (test code = 1514) 0-2 /HPF EPITHELIAL CELLS (test code = 91559) 0-5 /HPF BACTERIA (test code = 1515) NONE SEEN CASTS, HYALINE (test code = 1517) NONE SEEN Alexx Soliman AustinMICROSCOPIC URINALYSIS, REFLEX [id number] 00:00:00* Test Item Value Reference Range Interpretation Comme nts WHITE BLOOD CELLS (test code = 1513) 0-5 /HPF RED BLOOD CELLS (test code = 1514) 0-2 /HPF EPITHELIAL CELLS (test code = 06113) 0-5 /HPF BACTERIA (test code = 1515) NONE SEEN CASTS, HYALINE (test code = 1517) NONE SEEN Alexx F AustinMICROSCOPIC URINALYSIS, REFLEX [id number] 00:00:00* Test Item Value Reference Range Interpretation Comme nts WHITE BLOOD CELLS (test code = 1513) 0-5 /HPF RED BLOOD CELLS (test code = 1514) 0-2 /HPF EPITHELIAL CELLS (test code = 50651) 0-5 /HPF BACTERIA (test code = 1515) NONE SEEN CASTS, HYALINE (test code = 1517) NONE SEEN Alexx Soliman AustinMICROSCOPIC URINALYSIS, REFLEX [id number] 00:00:00* Test Item Value Reference Range Interpretation Comme nts WHITE BLOOD CELLS (test code = 1513) 0-5 /HPF RED BLOOD CELLS (test code = 1514) 0-2 /HPF EPITHELIAL CELLS (test code = 21355) 0-5 /HPF BACTERIA (test code = 1515) NONE SEEN CASTS, HYALINE (test code = 1517) NONE SEEN Alexx Soliman AustinMICROSCOPIC URINALYSIS, REFLEX [id number] 00:00:00* Test Item Value Reference Range Interpretation Comme nts WHITE BLOOD CELLS (test code = 1513) 0-5 /HPF RED BLOOD CELLS (test code = 1514) 0-2 /HPF EPITHELIAL CELLS (test code = 09113) 0-5 /HPF BACTERIA (test code = 1515) NONE SEEN CASTS, HYALINE (test code = 1517) NONE SEEN Alexx Soliman AustinMICROSCOPIC URINALYSIS, REFLEX [id number] 00:00:00* Test Item Value Reference Range Interpretation Comme nts WHITE BLOOD CELLS (test code = 1513) 0-5 /HPF RED BLOOD CELLS (test code = 1514) 0-2 /HPF EPITHELIAL CELLS (test code = 44406) 0-5 /HPF BACTERIA (test code = 1515) NONE SEEN CASTS, HYALINE (test code = 1517) NONE SEEN Alexx Soliman AustinMICROSCOPIC URINALYSIS, REFLEX [id number] 00:00:00* Test Item Value Reference Range Interpretation Comme nts WHITE BLOOD CELLS (test code = 1513) 0-5 /HPF RED BLOOD CELLS (test code = 1514) 0-2 /HPF EPITHELIAL CELLS (test code = 45946) 0-5 /HPF BACTERIA (test code = 1515) NONE SEEN CASTS, HYALINE (test code = 1517) NONE SEEN Alexx F AustinMICROSCOPIC URINALYSIS, REFLEX [id number] 00:00:00* Test Item Value Reference Range Interpretation Comme nts WHITE BLOOD CELLS (test code = 1513) 0-5 /HPF RED BLOOD CELLS (test code = 1514) 0-2 /HPF EPITHELIAL CELLS (test code = 24838) 0-5 /HPF BACTERIA (test code = 1515) NONE SEEN CASTS, HYALINE (test code = 1517) NONE SEEN Alexx Soliman AustinMICROSCOPIC URINALYSIS, REFLEX [id number] 00:00:00* Test Item Value Reference Range Interpretation Comme nts WHITE BLOOD CELLS (test code = 1513) 0-5 /HPF RED BLOOD CELLS (test code = 1514) 0-2 /HPF EPITHELIAL CELLS (test code = 08373) 0-5 /HPF BACTERIA (test code = 1515) NONE SEEN CASTS, HYALINE (test code = 1517) NONE SEEN Alexx Soliman AustinMICROSCOPIC URINALYSIS, REFLEX [id number] 00:00:00* Test Item Value Reference Range Interpretation Comme nts WHITE BLOOD CELLS (test code = 1513) 0-5 /HPF RED BLOOD CELLS (test code = 1514) 0-2 /HPF EPITHELIAL CELLS (test code = 68834) 0-5 /HPF BACTERIA (test code = 1515) NONE SEEN CASTS, HYALINE (test code = 1517) NONE SEEN Alexx Soliman AustinMICROSCOPIC URINALYSIS, REFLEX [id number] 00:00:00* Test Item Value Reference Range Interpretation Comme nts WHITE BLOOD CELLS (test code = 1513) 0-5 /HPF RED BLOOD CELLS (test code = 1514) 0-2 /HPF EPITHELIAL CELLS (test code = 93984) 0-5 /HPF BACTERIA (test code = 1515) NONE SEEN CASTS, HYALINE (test code = 1517) NONE SEEN Alexx Soliman AustinMICROSCOPIC URINALYSIS, REFLEX [id number] 00:00:00* Test Item Value Reference Range Interpretation Comme nts WHITE BLOOD CELLS (test code = 1513) 0-5 /HPF RED BLOOD CELLS (test code = 1514) 0-2 /HPF EPITHELIAL CELLS (test code = 87898) 0-5 /HPF BACTERIA (test code = 1515) NONE SEEN CASTS, HYALINE (test code = 1517) NONE SEEN Alexx F AustinMICROSCOPIC URINALYSIS, REFLEX [id number] 00:00:00* Test Item Value Reference Range Interpretation Comme nts WHITE BLOOD CELLS (test code = 1513) 0-5 /HPF RED BLOOD CELLS (test code = 1514) 0-2 /HPF EPITHELIAL CELLS (test code = 92969) 0-5 /HPF BACTERIA (test code = 1515) NONE SEEN CASTS, HYALINE (test code = 1517) NONE SEEN Alexx Soliman AustinMICROSCOPIC URINALYSIS, REFLEX [id number] 00:00:00* Test Item Value Reference Range Interpretation Comme nts WHITE BLOOD CELLS (test code = 1513) 0-5 /HPF RED BLOOD CELLS (test code = 1514) 0-2 /HPF EPITHELIAL CELLS (test code = 57948) 0-5 /HPF BACTERIA (test code = 1515) NONE SEEN CASTS, HYALINE (test code = 1517) NONE SEEN Alexx Soliman AustinMICROSCOPIC URINALYSIS, REFLEX [id number] 00:00:00* Test Item Value Reference Range Interpretation Comme nts WHITE BLOOD CELLS (test code = 1513) 0-5 /HPF RED BLOOD CELLS (test code = 1514) 0-2 /HPF EPITHELIAL CELLS (test code = 32676) 0-5 /HPF BACTERIA (test code = 1515) NONE SEEN CASTS, HYALINE (test code = 1517) NONE SEEN Alexx Soliman AustinMICROSCOPIC URINALYSIS, REFLEX [id number] 00:00:00* Test Item Value Reference Range Interpretation Comme nts WHITE BLOOD CELLS (test code = 1513) 0-5 /HPF RED BLOOD CELLS (test code = 1514) 0-2 /HPF EPITHELIAL CELLS (test code = 99493) 0-5 /HPF BACTERIA (test code = 1515) NONE SEEN CASTS, HYALINE (test code = 1517) NONE SEEN Alexx Soliman AustinMICROSCOPIC URINALYSIS, REFLEX [id number] 00:00:00* Test Item Value Reference Range Interpretation Comme nts WHITE BLOOD CELLS (test code = 1513) 0-5 /HPF RED BLOOD CELLS (test code = 1514) 0-2 /HPF EPITHELIAL CELLS (test code = 13129) 0-5 /HPF BACTERIA (test code = 1515) NONE SEEN CASTS, HYALINE (test code = 1517) NONE SEEN Alexx Soliman AustinVAGINAL PATHOGENS DNA [id number] 00:00:00* Test Item Value Reference Range Interpretation Comme nts MADDISON SPECIES (test code = 38887) NEGATIVE G. VAGINALIS (test code = 87908) NEGATIVE T. VAGINALIS (test code = 55795) NEGATIVE Alexx Soliman AustinVAGINAL PATHOGENS DNA [id number] 00:00:00* Test Item Value Reference Range Interpretation Comme nts MADDISON SPECIES (test code = 87459) NEGATIVE G. VAGINALIS (test code = 22021) NEGATIVE T. VAGINALIS (test code = 38673) NEGATIVE Alexx Soliman AustinVAGINAL PATHOGENS DNA [id number] 00:00:00* Test Item Value Reference Range Interpretation Comme nts MADDISON SPECIES (test code = 89453) NEGATIVE G. VAGINALIS (test code = 31048) NEGATIVE T. VAGINALIS (test code = 57391) NEGATIVE Alexx Soliman AustinVAGINAL PATHOGENS DNA [id number] 00:00:00* Test Item Value Reference Range Interpretation Comme nts MADDISON SPECIES (test code = 69840) NEGATIVE G. VAGINALIS (test code = 22255) NEGATIVE T. VAGINALIS (test code = 14666) NEGATIVE Alexx Soliman AustinVAGINAL PATHOGENS DNA [id number] 00:00:00* Test Item Value Reference Range Interpretation Comme nts MADDISON SPECIES (test code = 33322) NEGATIVE G. VAGINALIS (test code = 24924) NEGATIVE T. VAGINALIS (test code = 58774) NEGATIVE Alexx Soliman AustinVAGINAL PATHOGENS DNA [id number] 00:00:00* Test Item Value Reference Range Interpretation Comme nts MADDISON SPECIES (test code = 62078) NEGATIVE G. VAGINALIS (test code = 80776) NEGATIVE T. VAGINALIS (test code = 23782) NEGATIVE Alexx Soliman AustinVAGINAL PATHOGENS DNA [id number] 00:00:00* Test Item Value Reference Range Interpretation Comme nts MADDISON SPECIES (test code = 44244) NEGATIVE G. VAGINALIS (test code = 03906) NEGATIVE T. VAGINALIS (test code = 01074) NEGATIVE Alexx Soliman AustinVAGINAL PATHOGENS DNA [id number] 00:00:00* Test Item Value Reference Range Interpretation Comme nts MADDISON SPECIES (test code = 14674) NEGATIVE G. VAGINALIS (test code = 81166) NEGATIVE T. VAGINALIS (test code = 14705) NEGATIVE Alexx Soliman AustinVAGINAL PATHOGENS DNA [id number] 00:00:00* Test Item Value Reference Range Interpretation Comme nts MADDISON SPECIES (test code = 86795) NEGATIVE G. VAGINALIS (test code = 43636) NEGATIVE T. VAGINALIS (test code = 15212) NEGATIVE Alexx Soliman AustinVAGINAL PATHOGENS DNA [id number] 00:00:00* Test Item Value Reference Range Interpretation Comme nts MADDISON SPECIES (test code = 16585) NEGATIVE G. VAGINALIS (test code = 71586) NEGATIVE T. VAGINALIS (test code = 94436) NEGATIVE Alexx F AustinVAGINAL PATHOGENS DNA [id number] 00:00:00* Test Item Value Reference Range Interpretation Comme nts MADDISON SPECIES (test code = 77704) NEGATIVE G. VAGINALIS (test code = 14237) NEGATIVE T. VAGINALIS (test code = 11713) NEGATIVE Alexx F AustinVAGINAL PATHOGENS DNA [id number] 00:00:00* Test Item Value Reference Range Interpretation Comme nts MADDISON SPECIES (test code = 64094) NEGATIVE G. VAGINALIS (test code = 14697) NEGATIVE T. VAGINALIS (test code = 55073) NEGATIVE Alexx Janny AustinVAGINAL PATHOGENS DNA [id number] 00:00:00* Test Item Value Reference Range Interpretation Comme nts MADDISON SPECIES (test code = 96300) NEGATIVE G. VAGINALIS (test code = 43579) NEGATIVE T. VAGINALIS (test code = 20616) NEGATIVE Alexx Soliman AustinVAGINAL PATHOGENS DNA [id number] 00:00:00* Test Item Value Reference Range Interpretation Comme nts MADDISON SPECIES (test code = 86326) NEGATIVE G. VAGINALIS (test code = 89206) NEGATIVE T. VAGINALIS (test code = 05446) NEGATIVE Alexx F AustinVAGINAL PATHOGENS DNA [id number] 00:00:00* Test Item Value Reference Range Interpretation Comme nts MADDISON SPECIES (test code = 89469) NEGATIVE G. VAGINALIS (test code = 79124) NEGATIVE T. VAGINALIS (test code = 05915) NEGATIVE Alexx F AustinVAGINAL PATHOGENS DNA [id number] 00:00:00* Test Item Value Reference Range Interpretation Comme nts MADDISON SPECIES (test code = ) NEGATIVE G. VAGINALIS (test code = 68959) NEGATIVE T. VAGINALIS (test code = ) NEGATIVE Alexx Soliman AustinVAGINAL PATHOGENS DNA [id number] 00:00:00* Test Item Value Reference Range Interpretation Comme nts MADDISON SPECIES (test code = ) NEGATIVE G. VAGINALIS (test code = 21566) NEGATIVE T. VAGINALIS (test code = 60729) NEGATIVE Alexx Soliman AustinVAGINAL PATHOGENS DNA [id number] 00:00:00* Test Item Value Reference Range Interpretation Comme nts MADDISON SPECIES (test code = ) NEGATIVE G. VAGINALIS (test code = 06632) NEGATIVE T. VAGINALIS (test code = ) NEGATIVE Alexx Soliman AustinALBUMIN/CREATININE RATIO, URINE, [id number] 04:00:28* Test Item Value Reference Range Interpretation Comme nts CREATININE, URINE, CONC. (test code = 2071) 16.3 MG/DL NOT ESTAB ALBUMIN, URINE, RANDOM (test code = 08531) 0.9 MG/DL NOT ESTAB CALC ALBUMIN/CREAT, RND (test code = 23352) 55 MG/G <30 H Note: Albumin/Cr eatinine ratio reference interval reflects ADA and NKF guidelines. UNLESS OTHERWISE INDICATED, ALL TESTING PERFORMED AT [facility] [address] [place] [address] STEEPING PRESS OPERATOR: ELI KOVACS M.D. CLIA NUMBER [id number] [place]. [id number] HPV HIGH RISK WITH GENOTYPE, [id number] 00:00:00* Test Item Value Reference Range Interpretation Comme nts HPV HIGH RISK INTERP (test c ode = 46065) NEGATIVE HPV 16 (test code = 98235) NEGATIVE HPV 18 (test code = 03258) NEGATIVE HPV, HR, OTHER GENOTYPES (te st code = 42912) NEGATIVE Alexx Soliman AustinALBUMIN/CREATININE RATIO, RANDOM [id number] 00:00:00* Test Item Value Reference Range Interpretation Comme nts CREATININE, URINE, CONC. (te st code = 2072) 16.3 MG/DL ALBUMIN, URINE, RANDOM (test code = 30174) 0.9 MG/DL CALC ALBUMIN/CREAT, RND (christina t code = 97316) 55 MG/G Alexx Soliman AustinPAP TEST, THINPREP, [id number] 00:00:00* Test Item Value Reference Range Interpretation Comme nts SOURCE: (test code = 8001) Cervical SLIDES: (test code = 8011) 1 LMP: (test code = 8021) NOT GIVEN SPECIMEN ADEQUACY: (test code = 82754) (NOTE) INTERPRETATION: (test code = 57216) NILM/NO EPITH. ABNORMALITY;SEE BELOW : (test code = 8101) Lashaun Salinas LOCATION: (test code = 50211) (NOTE) CPT: (test code = 8140) (NOTE) Alexx Soliman AustinHPV HIGH RISK WITH GENOTYPE, [id number] 00:00:00* Test Item Value Reference Range Interpretation Comme nts HPV HIGH RISK INTERP (test c ode = 56690) NEGATIVE HPV 16 (test code = 06517) NEGATIVE HPV 18 (test code = 11203) NEGATIVE HPV, HR, OTHER GENOTYPES (te st code = 19547) NEGATIVE Alexx Soliman AustinALBUMIN/CREATININE RATIO, RANDOM [id number] 00:00:00* Test Item Value Reference Range Interpretation Comme nts CREATININE, URINE, CONC. (te st code = 2072) 16.3 MG/DL ALBUMIN, URINE, RANDOM (test code = 69812) 0.9 MG/DL CALC ALBUMIN/CREAT, RND (christina t code = 19876) 55 MG/G Alexx MendozaPAP TEST, THINPREP, [id number] 00:00:00* Test Item Value Reference Range Interpretation Comme nts SOURCE: (test code = 8001) Cervical SLIDES: (test code = 8011) 1 LMP: (test code = 8021) NOT GIVEN SPECIMEN ADEQUACY: (test code = 22126) (NOTE) INTERPRETATION: (test code = 91837) NILM/NO EPITH. ABNORMALITY;SEE BELOW : (test code = 8101) Lashaun Salinas LOCATION: (test code = 79938) (NOTE) CPT: (test code = 8140) (NOTE) Alexx Soliman AustinALBUMIN/CREATININE RATIO, RANDOM [id number] 00:00:00* Test Item Value Reference Range Interpretation Comme nts CREATININE, URINE, CONC. (te st code = 2072) 16.3 MG/DL ALBUMIN, URINE, RANDOM (test code = 94662) 0.9 MG/DL CALC ALBUMIN/CREAT, RND (christina t code = 63825) 55 MG/G Alexx Janny AustinHPV HIGH RISK WITH GENOTYPE, [id number] 00:00:00* Test Item Value Reference Range Interpretation Comme nts HPV HIGH RISK INTERP (test c ode = 26634) NEGATIVE HPV 16 (test code = 12919) NEGATIVE HPV 18 (test code = 12427) NEGATIVE HPV, HR, OTHER GENOTYPES (te st code = 68091) NEGATIVE Alexx F AustinPAP TEST, THINPREP, [id number] 00:00:00* Test Item Value Reference Range Interpretation Comme nts SOURCE: (test code = 8001) Cervical SLIDES: (test code = 8011) 1 LMP: (test code = 8021) NOT GIVEN SPECIMEN ADEQUACY: (test code = 81430) (NOTE) INTERPRETATION: (test code = 65122) NILM/NO EPITH. ABNORMALITY;SEE BELOW : (test code = 8101) Lashaun Salinas LOCATION: (test code = 82833) (NOTE) CPT: (test code = 8140) (NOTE) Alexx F AustinALBUMIN/CREATININE RATIO, RANDOM [id number] 00:00:00* Test Item Value Reference Range Interpretation Comme nts CREATININE, URINE, CONC. (te st code = 2072) 16.3 MG/DL ALBUMIN, URINE, RANDOM (test code = 85919) 0.9 MG/DL CALC ALBUMIN/CREAT, RND (christina t code = 25836) 55 MG/G Alexx F AustinHPV HIGH RISK WITH GENOTYPE, [id number] 00:00:00* Test Item Value Reference Range Interpretation Comme nts HPV HIGH RISK INTERP (test c ode = 79898) NEGATIVE HPV 16 (test code = 93349) NEGATIVE HPV 18 (test code = 57319) NEGATIVE HPV, HR, OTHER GENOTYPES (te st code = 07762) NEGATIVE Alexx F AustinPAP TEST, THINPREP, [id number] 00:00:00* Test Item Value Reference Range Interpretation Comme nts SOURCE: (test code = 8001) Cervical SLIDES: (test code = 8011) 1 LMP: (test code = 8021) NOT GIVEN SPECIMEN ADEQUACY: (test code = 67831) (NOTE) INTERPRETATION: (test code = 08712) NILM/NO EPITH. ABNORMALITY;SEE BELOW : (test code = 8101) Lashaun Salinas LOCATION: (test code = 97474) (NOTE) CPT: (test code = 8140) (NOTE) Alexx Soliman AustinALBUMIN/CREATININE RATIO, RANDOM [id number] 00:00:00* Test Item Value Reference Range Interpretation Comme nts CREATININE, URINE, CONC. (te st code = 2071) 16.3 MG/DL ALBUMIN, URINE, RANDOM (test code = 95751) 0.9 MG/DL CALC ALBUMIN/CREAT, RND (christina t code = 02235) 55 MG/G Alexx MendozaHPV HIGH RISK WITH GENOTYPE, [id number] 00:00:00* Test Item Value Reference Range Interpretation Comme nts HPV HIGH RISK INTERP (test c ode = 68012) NEGATIVE HPV 16 (test code = 55269) NEGATIVE HPV 18 (test code = 47026) NEGATIVE HPV, HR, OTHER GENOTYPES (te st code = 15695) NEGATIVE Alexx MendozaPAP TEST, THINPREP, [id number] 00:00:00* Test Item Value Reference Range Interpretation Comme nts SOURCE: (test code = 8001) Cervical SLIDES: (test code = 8011) 1 LMP: (test code = 8021) NOT GIVEN SPECIMEN ADEQUACY: (test code = 60376) (NOTE) INTERPRETATION: (test code = 67728) NILM/NO EPITH. ABNORMALITY;SEE BELOW : (test code = 8101) Lashaun Salinas LOCATION: (test code = 40195) (NOTE) CPT: (test code = 8140) (NOTE) Alexx Soliman AustinALBUMIN/CREATININE RATIO, RANDOM [id number] 00:00:00* Test Item Value Reference Range Interpretation Comme nts CREATININE, URINE, CONC. (te st code = 2071) 16.3 MG/DL ALBUMIN, URINE, RANDOM (test code = 95835) 0.9 MG/DL CALC ALBUMIN/CREAT, RND (christina t code = 61983) 55 MG/G Alexx Soliman AustinHPV HIGH RISK WITH GENOTYPE, [id number] 00:00:00* Test Item Value Reference Range Interpretation Comme nts HPV HIGH RISK INTERP (test c ode = 28907) NEGATIVE HPV 16 (test code = 91487) NEGATIVE HPV 18 (test code = 61876) NEGATIVE HPV, HR, OTHER GENOTYPES (te st code = 28455) NEGATIVE Alexx Soliman AustinPAP TEST, THINPREP, [id number] 00:00:00* Test Item Value Reference Range Interpretation Comme nts SOURCE: (test code = 8001) Cervical SLIDES: (test code = 8011) 1 LMP: (test code = 8021) NOT GIVEN SPECIMEN ADEQUACY: (test code = 91584) (NOTE) INTERPRETATION: (test code = 78974) NILM/NO EPITH. ABNORMALITY;SEE BELOW : (test code = 8101) Lashaun Salinas LOCATION: (test code = 26248) (NOTE) CPT: (test code = 8140) (NOTE) Alexx Soliman AustinALBUMIN/CREATININE RATIO, RANDOM [id number] 00:00:00* Test Item Value Reference Range Interpretation Comme nts CREATININE, URINE, CONC. (te st code = 2072) 16.3 MG/DL ALBUMIN, URINE, RANDOM (test code = 86963) 0.9 MG/DL CALC ALBUMIN/CREAT, RND (christina t code = 95533) 55 MG/G Alexx Soliman AustinHPV HIGH RISK WITH GENOTYPE, [id number] 00:00:00* Test Item Value Reference Range Interpretation Comme nts HPV HIGH RISK INTERP (test c ode = 79456) NEGATIVE HPV 16 (test code = 42350) NEGATIVE HPV 18 (test code = 63690) NEGATIVE HPV, HR, OTHER GENOTYPES (te st code = 91866) NEGATIVE Alexx Soliman AustinPAP TEST, THINPREP, [id number] 00:00:00* Test Item Value Reference Range Interpretation Comme nts SOURCE: (test code = 800) Cervical SLIDES: (test code = 8011) 1 LMP: (test code = 8021) NOT GIVEN SPECIMEN ADEQUACY: (test code = 38622) (NOTE) INTERPRETATION: (test code = 69620) NILM/NO EPITH. ABNORMALITY;SEE BELOW : (test code = 8101) Lashaun Salinas LOCATION: (test code = 48542) (NOTE) CPT: (test code = 8140) (NOTE) Alexx Soliman AustinALBUMIN/CREATININE RATIO, RANDOM [id number] 00:00:00* Test Item Value Reference Range Interpretation Comme nts CREATININE, URINE, CONC. (te st code = 207) 16.3 MG/DL ALBUMIN, URINE, RANDOM (test code = 04401) 0.9 MG/DL CALC ALBUMIN/CREAT, RND (christina t code = 53455) 55 MG/G Alexx Soliman AustinHPV HIGH RISK WITH GENOTYPE, [id number] 00:00:00* Test Item Value Reference Range Interpretation Comme nts HPV HIGH RISK INTERP (test c ode = 33020) NEGATIVE HPV 16 (test code = 65389) NEGATIVE HPV 18 (test code = 27640) NEGATIVE HPV, HR, OTHER GENOTYPES (te st code = 88215) NEGATIVE Alexx Soliman AustinPAP TEST, THINPREP, [id number] 00:00:00* Test Item Value Reference Range Interpretation Comme nts SOURCE: (test code = 8001) Cervical SLIDES: (test code = 8011) 1 LMP: (test code = 8021) NOT GIVEN SPECIMEN ADEQUACY: (test code = 77992) (NOTE) INTERPRETATION: (test code = 70803) NILM/NO EPITH. ABNORMALITY;SEE BELOW : (test code = 8101) Lashaun Salinas LOCATION: (test code = 33952) (NOTE) CPT: (test code = 8140) (NOTE) Alexx Soliman AustinHPV HIGH RISK WITH GENOTYPE, [id number] 00:00:00* Test Item Value Reference Range Interpretation Comme nts HPV HIGH RISK INTERP (test c ode = 80143) NEGATIVE HPV 16 (test code = 24305) NEGATIVE HPV 18 (test code = 82234) NEGATIVE HPV, HR, OTHER GENOTYPES (te st code = 77006) NEGATIVE Alexx Soliman AustinALBUMIN/CREATININE RATIO, RANDOM [id number] 00:00:00* Test Item Value Reference Range Interpretation Comme nts CREATININE, URINE, CONC. (te st code = 207) 16.3 MG/DL ALBUMIN, URINE, RANDOM (test code = 95931) 0.9 MG/DL CALC ALBUMIN/CREAT, RND (christina t code = 70210) 55 MG/G Alexx MendozaPAP TEST, THINPREP, [id number] 00:00:00* Test Item Value Reference Range Interpretation Comme nts SOURCE: (test code = 8001) Cervical SLIDES: (test code = 8011) 1 LMP: (test code = 8021) NOT GIVEN SPECIMEN ADEQUACY: (test code = 05704) (NOTE) INTERPRETATION: (test code = 59596) NILM/NO EPITH. ABNORMALITY;SEE BELOW : (test code = 8101) Lashaun Sailnas LOCATION: (test code = 95288) (NOTE) CPT: (test code = 8140) (NOTE) Alexx Soliman AustinALBUMIN/CREATININE RATIO, RANDOM [id number] 00:00:00* Test Item Value Reference Range Interpretation Comme nts CREATININE, URINE, CONC. (te st code = 2072) 16.3 MG/DL ALBUMIN, URINE, RANDOM (test code = 92804) 0.9 MG/DL CALC ALBUMIN/CREAT, RND (christina t code = 01235) 55 MG/G Alexx MendozaHPV HIGH RISK WITH GENOTYPE, [id number] 00:00:00* Test Item Value Reference Range Interpretation Comme nts HPV HIGH RISK INTERP (test c ode = 20837) NEGATIVE HPV 16 (test code = 79881) NEGATIVE HPV 18 (test code = 42578) NEGATIVE HPV, HR, OTHER GENOTYPES (te st code = 16001) NEGATIVE Alexx MendozaPAP TEST, THINPREP, [id number] 00:00:00* Test Item Value Reference Range Interpretation Comme nts SOURCE: (test code = 8001) Cervical SLIDES: (test code = 8011) 1 LMP: (test code = 8021) NOT GIVEN SPECIMEN ADEQUACY: (test code = 13521) (NOTE) INTERPRETATION: (test code = 56097) NILM/NO EPITH. ABNORMALITY;SEE BELOW : (test code = 8101) Lashaun Salinas LOCATION: (test code = 56816) (NOTE) CPT: (test code = 8140) (NOTE) Alexx Soliman AustinALBUMIN/CREATININE RATIO, RANDOM [id number] 00:00:00* Test Item Value Reference Range Interpretation Comme nts CREATININE, URINE, CONC. (te st code = 207) 16.3 MG/DL ALBUMIN, URINE, RANDOM (test code = 29661) 0.9 MG/DL CALC ALBUMIN/CREAT, RND (christina t code = 75005) 55 MG/G Alexx Soliman AustinHPV HIGH RISK WITH GENOTYPE, [id number] 00:00:00* Test Item Value Reference Range Interpretation Comme nts HPV HIGH RISK INTERP (test c ode = 32901) NEGATIVE HPV 16 (test code = 62516) NEGATIVE HPV 18 (test code = 00298) NEGATIVE HPV, HR, OTHER GENOTYPES (te st code = 24247) NEGATIVE Alexx Soliman AustinPAP TEST, THINPREP, [id number] 00:00:00* Test Item Value Reference Range Interpretation Comme nts SOURCE: (test code = 8001) Cervical SLIDES: (test code = 8011) 1 LMP: (test code = 8021) NOT GIVEN SPECIMEN ADEQUACY: (test code = 00329) (NOTE) INTERPRETATION: (test code = 60776) NILM/NO EPITH. ABNORMALITY;SEE BELOW : (test code = 8101) Lashaun Salinas LOCATION: (test code = 66418) (NOTE) CPT: (test code = 8140) (NOTE) Alexx Soliman AustinALBUMIN/CREATININE RATIO, RANDOM [id number] 00:00:00* Test Item Value Reference Range Interpretation Comme nts CREATININE, URINE, CONC. (te st code = 207) 16.3 MG/DL ALBUMIN, URINE, RANDOM (test code = 23387) 0.9 MG/DL CALC ALBUMIN/CREAT, RND (christina t code = 27692) 55 MG/G Alexx Soliman AustinHPV HIGH RISK WITH GENOTYPE, [id number] 00:00:00* Test Item Value Reference Range Interpretation Comme nts HPV HIGH RISK INTERP (test c ode = 50806) NEGATIVE HPV 16 (test code = 80985) NEGATIVE HPV 18 (test code = 66678) NEGATIVE HPV, HR, OTHER GENOTYPES (te st code = 29085) NEGATIVE Alexx Soliman AustinPAP TEST, THINPREP, [id number] 00:00:00* Test Item Value Reference Range Interpretation Comme nts SOURCE: (test code = 8001) Cervical SLIDES: (test code = 8011) 1 LMP: (test code = 8021) NOT GIVEN SPECIMEN ADEQUACY: (test code = 31586) (NOTE) INTERPRETATION: (test code = 44938) NILM/NO EPITH. ABNORMALITY;SEE BELOW : (test code = 8101) Lashaun Salinas LOCATION: (test code = 29664) (NOTE) CPT: (test code = 8140) (NOTE) Alexx Soliman AustinALBUMIN/CREATININE RATIO, RANDOM [id number] 00:00:00* Test Item Value Reference Range Interpretation Comme nts CREATININE, URINE, CONC. (te st code = 2072) 16.3 MG/DL ALBUMIN, URINE, RANDOM (test code = 86771) 0.9 MG/DL CALC ALBUMIN/CREAT, RND (christina t code = 62461) 55 MG/G Alexx Soliman AustinHPV HIGH RISK WITH GENOTYPE, [id number] 00:00:00* Test Item Value Reference Range Interpretation Comme nts HPV HIGH RISK INTERP (test c ode = 30461) NEGATIVE HPV 16 (test code = 06637) NEGATIVE HPV 18 (test code = 98887) NEGATIVE HPV, HR, OTHER GENOTYPES (te st code = 43946) NEGATIVE Alexx Soliman AustinPAP TEST, THINPREP, [id number] 00:00:00* Test Item Value Reference Range Interpretation Comme nts SOURCE: (test code = 8001) Cervical SLIDES: (test code = 8011) 1 LMP: (test code = 8021) NOT GIVEN SPECIMEN ADEQUACY: (test code = 96702) (NOTE) INTERPRETATION: (test code = 03206) NILM/NO EPITH. ABNORMALITY;SEE BELOW : (test code = 8101) Lashaun Salinas LOCATION: (test code = 69034) (NOTE) CPT: (test code = 8140) (NOTE) Alexx Soliman AustinHPV HIGH RISK WITH GENOTYPE, [id number] 00:00:00* Test Item Value Reference Range Interpretation Comme nts HPV HIGH RISK INTERP (test c ode = 97014) NEGATIVE HPV 16 (test code = 89075) NEGATIVE HPV 18 (test code = 19944) NEGATIVE HPV, HR, OTHER GENOTYPES (te st code = 08765) NEGATIVE Alexx Soliman AustinALBUMIN/CREATININE RATIO, RANDOM [id number] 00:00:00* Test Item Value Reference Range Interpretation Comme nts CREATININE, URINE, CONC. (te st code = 2072) 16.3 MG/DL ALBUMIN, URINE, RANDOM (test code = 36697) 0.9 MG/DL CALC ALBUMIN/CREAT, RND (christina t code = 37614) 55 MG/G Alexx Soliman AustinPAP TEST, THINPREP, [id number] 00:00:00* Test Item Value Reference Range Interpretation Comme nts SOURCE: (test code = 8001) Cervical SLIDES: (test code = 8011) 1 LMP: (test code = 8021) NOT GIVEN SPECIMEN ADEQUACY: (test code = 79153) (NOTE) INTERPRETATION: (test code = 31251) NILM/NO EPITH. ABNORMALITY;SEE BELOW : (test code = 8101) Lashaun Salinas LOCATION: (test code = 15603) (NOTE) CPT: (test code = 8140) (NOTE) Alexx F AustinALBUMIN/CREATININE RATIO, RANDOM [id number] 00:00:00* Test Item Value Reference Range Interpretation Comme nts CREATININE, URINE, CONC. (te st code = 207) 16.3 MG/DL ALBUMIN, URINE, RANDOM (test code = 45304) 0.9 MG/DL CALC ALBUMIN/CREAT, RND (christina t code = 26233) 55 MG/G Alexx Soliman AustinHPV HIGH RISK WITH GENOTYPE, [id number] 00:00:00* Test Item Value Reference Range Interpretation Comme nts HPV HIGH RISK INTERP (test c ode = 51415) NEGATIVE HPV 16 (test code = 26196) NEGATIVE HPV 18 (test code = 43225) NEGATIVE HPV, HR, OTHER GENOTYPES (te st code = 98199) NEGATIVE Alexx F AustinPAP TEST, THINPREP, [id number] 00:00:00* Test Item Value Reference Range Interpretation Comme nts SOURCE: (test code = 8001) Cervical SLIDES: (test code = 8011) 1 LMP: (test code = 8021) NOT GIVEN SPECIMEN ADEQUACY: (test code = 90308) (NOTE) INTERPRETATION: (test code = 11464) NILM/NO EPITH. ABNORMALITY;SEE BELOW : (test code = 8101) Lashaun Salinas LOCATION: (test code = 10146) (NOTE) CPT: (test code = 8140) (NOTE) Alexx Soliman AustinHPV HIGH RISK WITH GENOTYPE, [id number] 00:00:00* Test Item Value Reference Range Interpretation Comme nts HPV HIGH RISK INTERP (test c ode = 75931) NEGATIVE HPV 16 (test code = 39923) NEGATIVE HPV 18 (test code = 49663) NEGATIVE HPV, HR, OTHER GENOTYPES (te st code = 79769) NEGATIVE Alexx Soliman AustinALBUMIN/CREATININE RATIO, RANDOM [id number] 00:00:00* Test Item Value Reference Range Interpretation Comme nts CREATININE, URINE, CONC. (te st code = 2072) 16.3 MG/DL ALBUMIN, URINE, RANDOM (test code = 28247) 0.9 MG/DL CALC ALBUMIN/CREAT, RND (christina t code = 78963) 55 MG/G Alexx Soliman AustinPAP TEST, THINPREP, [id number] 00:00:00* Test Item Value Reference Range Interpretation Comme nts SOURCE: (test code = 8001) Cervical SLIDES: (test code = 8011) 1 LMP: (test code = 8021) NOT GIVEN SPECIMEN ADEQUACY: (test code = 32172) (NOTE) INTERPRETATION: (test code = 08357) NILM/NO EPITH. ABNORMALITY;SEE BELOW : (test code = 8101) Lashaun Salinas LOCATION: (test code = 44918) (NOTE) CPT: (test code = 8140) (NOTE) Alexx Soliman AustinHPV HIGH RISK WITH GENOTYPE, [id number] 00:00:00* Test Item Value Reference Range Interpretation Comme nts HPV HIGH RISK INTERP (test c ode = 58465) NEGATIVE HPV 16 (test code = 01092) NEGATIVE HPV 18 (test code = 30696) NEGATIVE HPV, HR, OTHER GENOTYPES (te st code = 66466) NEGATIVE Alexx Soliman AustinALBUMIN/CREATININE RATIO, RANDOM [id number] 00:00:00* Test Item Value Reference Range Interpretation Comme nts CREATININE, URINE, CONC. (te st code = 207) 16.3 MG/DL ALBUMIN, URINE, RANDOM (test code = 54839) 0.9 MG/DL CALC ALBUMIN/CREAT, RND (christina t code = 51605) 55 MG/G Alexx Soliman AustinPAP TEST, THINPREP, [id number] 00:00:00* Test Item Value Reference Range Interpretation Comme nts SOURCE: (test code = 8001) Cervical SLIDES: (test code = 8011) 1 LMP: (test code = 8021) NOT GIVEN SPECIMEN ADEQUACY: (test code = 54494) (NOTE) INTERPRETATION: (test code = 77814) NILM/NO EPITH. ABNORMALITY;SEE BELOW : (test code = 8101) Lashaun Salinas LOCATION: (test code = 57479) (NOTE) CPT: (test code = 8140) (NOTE) Alexx Soliman AustinHPV HIGH RISK WITH GENOTYPE, [id number] 00:00:00* Test Item Value Reference Range Interpretation Comme nts HPV HIGH RISK INTERP (test c ode = 65581) NEGATIVE HPV 16 (test code = 65400) NEGATIVE HPV 18 (test code = 23707) NEGATIVE HPV, HR, OTHER GENOTYPES (te st code = 00026) NEGATIVE Alexx Soliman AustinALBUMIN/CREATININE RATIO, RANDOM [id number] 00:00:00* Test Item Value Reference Range Interpretation Comme nts CREATININE, URINE, CONC. (te st code = 207) 16.3 MG/DL ALBUMIN, URINE, RANDOM (test code = 47067) 0.9 MG/DL CALC ALBUMIN/CREAT, RND (christina t code = 15166) 55 MG/G Alexx MendozaPAP TEST, THINPREP, [id number] 00:00:00* Test Item Value Reference Range Interpretation Comme nts SOURCE: (test code = 8001) Cervical SLIDES: (test code = 8011) 1 LMP: (test code = 8021) NOT GIVEN SPECIMEN ADEQUACY: (test code = 68328) (NOTE) INTERPRETATION: (test code = 05596) NILM/NO EPITH. ABNORMALITY;SEE BELOW : (test code = 8101) Lashaun Salinas LOCATION: (test code = 92661) (NOTE) CPT: (test code = 8140) (NOTE) Alexx Soliman AustinHEMOGLOBIN [id number] 00:00:00* Test Item Value Reference Range Interpretation Comme nts HEMOGLOBIN A1c (test code = 95176) 5.4 % Alexx Soliman AustinHEMOGLOBIN [id number] 00:00:00* Test Item Value Reference Range Interpretation Comme nts HEMOGLOBIN A1c (test code = 51236) 5.4 % Alexx Soliman AustinHEMOGLOBIN [id number] 00:00:00* Test Item Value Reference Range Interpretation Comme nts HEMOGLOBIN A1c (test code = 04540) 5.4 % Alexx Soliman AustinHEMOGLOBIN [id number] 00:00:00* Test Item Value Reference Range Interpretation Comme nts HEMOGLOBIN A1c (test code = 91170) 5.4 % Alexx Soliman AustinHEMOGLOBIN [id number] 00:00:00* Test Item Value Reference Range Interpretation Comme nts HEMOGLOBIN A1c (test code = 29073) 5.4 % Alexx Soliman AustinHEMOGLOBIN [id number] 00:00:00* Test Item Value Reference Range Interpretation Comme nts HEMOGLOBIN A1c (test code = 21987) 5.4 % Alexx Soliman AustinHEMOGLOBIN [id number] 00:00:00* Test Item Value Reference Range Interpretation Comme nts HEMOGLOBIN A1c (test code = 30083) 5.4 % Alexx Soliman AustinHEMOGLOBIN [id number] 00:00:00* Test Item Value Reference Range Interpretation Comme nts HEMOGLOBIN A1c (test code = 23289) 5.4 % Alexx Soliman AustinHEMOGLOBIN [id number] 00:00:00* Test Item Value Reference Range Interpretation Comme nts HEMOGLOBIN A1c (test code = 24935) 5.4 % Alexx Soliman AustinHEMOGLOBIN [id number] 00:00:00* Test Item Value Reference Range Interpretation Comme nts HEMOGLOBIN A1c (test code = 28503) 5.4 % Alexx Soliman AustinHEMOGLOBIN [id number] 00:00:00* Test Item Value Reference Range Interpretation Comme nts HEMOGLOBIN A1c (test code = 26129) 5.4 % Alexx Soliman AustinHEMOGLOBIN [id number] 00:00:00* Test Item Value Reference Range Interpretation Comme nts HEMOGLOBIN A1c (test code = 52679) 5.4 % Alexx Soliman AustinHEMOGLOBIN [id number] 00:00:00* Test Item Value Reference Range Interpretation Comme nts HEMOGLOBIN A1c (test code = 80899) 5.4 % Alexx Soliman AustinHEMOGLOBIN [id number] 00:00:00* Test Item Value Reference Range Interpretation Comme nts HEMOGLOBIN A1c (test code = 86456) 5.4 % Alexx Soliman AustinHEMOGLOBIN [id number] 00:00:00* Test Item Value Reference Range Interpretation Comme nts HEMOGLOBIN A1c (test code = 26688) 5.4 % Alexx Soliman AustinHEMOGLOBIN [id number] 00:00:00* Test Item Value Reference Range Interpretation Comme nts HEMOGLOBIN A1c (test code = 37176) 5.4 % Alexx Soliman AustinHEMOGLOBIN [id number] 00:00:00* Test Item Value Reference Range Interpretation Comme nts HEMOGLOBIN A1c (test code = 60949) 5.4 % Alexx Soliman AustinHEMOGLOBIN [id number] 00:00:00* Test Item Value Reference Range Interpretation Comme nts HEMOGLOBIN A1c (test code = 88726) 5.4 % Alexx Soliman AustinCOMPREHENSIVE METABOLIC [id number] 00:00:00* Test Item Value Reference Range Interpretation Comme nts GLUCOSE (test code = 2217) 87 MG/DL BUN (test code = 2208) 8 MG/DL CREATININE (test code = 2214) 0.95 MG/DL eGFR (2020 CKD-EPI) (test co de = 14756) 72 ML/MIN/1.73 CALC BUN/CREAT (test code = [...] ALT (test code = 2219) 18 U/L ROSEANNA Lagunas2023-12-08 00:00:00* Test Item Value Reference Range Interpretation Comme nts TSH, THIRD GENERATION (test code = 2821) 3.120 UIU/ML Alexx MendozaCOMPREHENSIVE METABOLIC [id number] 00:00:00* Test Item Value Reference Range Interpretation Comme nts GLUCOSE (test code = 2217) 87 MG/DL BUN (test code = 2208) 8 MG/DL CREATININE (test code = 2214) 0.95 MG/DL eGFR (2020 CKD-EPI) (test co de = 76402) 72 ML/MIN/1.73 CALC BUN/CREAT (test code = [...] ALT (test code = 2219) 18 U/L ROSEANNA Lagunas2023-12-08 00:00:00* Test Item Value Reference Range Interpretation Comme nts TSH, THIRD GENERATION (test code = 2821) 3.120 UIU/ML Alexx MendozaCOMPREHENSIVE METABOLIC [id number] 00:00:00* Test Item Value Reference Range Interpretation Comme nts GLUCOSE (test code = 2217) 87 MG/DL BUN (test code = 2208) 8 MG/DL CREATININE (test code = 2214) 0.95 MG/DL eGFR (2020 CKD-EPI) (test co de = 09752) 72 ML/MIN/1.73 CALC BUN/CREAT (test code = [...] (test code = 2219) 18 U/L Alexx Soliman EmeryH, THIRD [id number] 00:00:00* Test Item Value Reference Range Interpretation Comme nts TSH, THIRD GENERATION (test code = 2821) 3.120 UIU/ML Alexx MendozaCOMPREHENSIVE METABOLIC [id number] 00:00:00* Test Item Value Reference Range Interpretation Comme nts GLUCOSE (test code = 2217) 87 MG/DL BUN (test code = 2208) 8 MG/DL CREATININE (test code = 2214) 0.95 MG/DL eGFR (2020 CKD-EPI) (test co de = 27146) 72 ML/MIN/1.73 CALC BUN/CREAT (test code = [...] ALT (test code = 2219) 18 U/L ROSEANNA Lagunas [id number] 00:00:00* Test Item Value Reference Range Interpretation Comme nts TSH, THIRD GENERATION (test code = 2821) 3.120 UIU/ML Alexx MendozaCOMPREHENSIVE METABOLIC [id number] 00:00:00* Test Item Value Reference Range Interpretation Comme nts GLUCOSE (test code = 2217) 87 MG/DL BUN (test code = 2208) 8 MG/DL CREATININE (test code = 2214) 0.95 MG/DL eGFR (2020 CKD-EPI) (test co de = 90396) 72 ML/MIN/1.73 CALC BUN/CREAT (test code = [...] ALT (test code = 2219) 18 U/L ROSEANNA Lagunas2023-12-08 00:00:00* Test Item Value Reference Range Interpretation Comme nts TSH, THIRD GENERATION (test code = 2821) 3.120 UIU/ML Alexx MendozaCOMPREHENSIVE METABOLIC [id number] 00:00:00* Test Item Value Reference Range Interpretation Comme nts GLUCOSE (test code = 2217) 87 MG/DL BUN (test code = 2208) 8 MG/DL CREATININE (test code = 2214) 0.95 MG/DL eGFR (2020 CKD-EPI) (test co de = 43053) 72 ML/MIN/1.73 CALC BUN/CREAT (test code = [...] (test code = 2219) 18 U/L Alexx Janny EmeryH, THIRD [id number] 00:00:00* Test Item Value Reference Range Interpretation Comme nts TSH, THIRD GENERATION (test code = 2821) 3.120 UIU/ML Alexx Soliman RejiCOMPREHENSIVE METABOLIC [id number] 00:00:00* Test Item Value Reference Range Interpretation Comme nts GLUCOSE (test code = 2217) 87 MG/DL BUN (test code = 2208) 8 MG/DL CREATININE (test code = 2214) 0.95 MG/DL eGFR (2020 CKD-EPI) (test co de = 44309) 72 ML/MIN/1.73 CALC BUN/CREAT (test code = [...] (test code = 2219) 18 U/L Alexx Gao THIRD [id number] 00:00:00* Test Item Value Reference Range Interpretation Comme nts TSH, THIRD GENERATION (test code = 2821) 3.120 UIU/ML Alexx MendozaCOMPREHENSIVE METABOLIC [id number] 00:00:00* Test Item Value Reference Range Interpretation Comme nts GLUCOSE (test code = 2217) 87 MG/DL BUN (test code = 2208) 8 MG/DL CREATININE (test code = 2214) 0.95 MG/DL eGFR (2020 CKD-EPI) (test co de = 17204) 72 ML/MIN/1.73 CALC BUN/CREAT (test code = [...] ALT (test code = 2219) 18 U/L ROSEANNA Lagunas [id number] 00:00:00* Test Item Value Reference Range Interpretation Comme nts BRAXTON, THIRD GENERATION (test code = 2821) 3.120 UIU/ML Alexx MendozaI[facility]ITALPREHENSIVE METABOLIC [id number] 00:00:00* Test Item Value Reference Range Interpretation Comme nts GLUCOSE (test code = 2217) 87 MG/DL BUN (test code = 2208) 8 MG/DL CREATININE (test code = 2214) 0.95 MG/DL eGFR (2020 CKD-EPI) (test co de = 00735) 72 ML/MIN/1.73 CALC BUN/CREAT (test code = [...] = 2219) 18 U/L Alexx LandH, THIRD [id number] 00:00:00* Test Item Value Reference Range Interpretation Comme nts TSH, THIRD GENERATION (test code = 2821) 3.120 UIU/ML Alexx MendozaCOMPREHENSIVE METABOLIC [id number] 00:00:00* Test Item Value Reference Range Interpretation Comme nts GLUCOSE (test code = 2217) 87 MG/DL BUN (test code = 2208) 8 MG/DL CREATININE (test code = 2214) 0.95 MG/DL eGFR (2020 CKD-EPI) (test co de = 72814) 72 ML/MIN/1.73 CALC BUN/CREAT (test code = [...] ALT (test code = 2219) 18 U/L ROSEANNA Lagunas [id number] 00:00:00* Test Item Value Reference Range Interpretation Comme nts TSH, THIRD GENERATION (test code = 2821) 3.120 UIU/ML Alexx MendozaCOMPREHENSIVE METABOLIC [id number] 00:00:00* Test Item Value Reference Range Interpretation Comme nts GLUCOSE (test code = 2217) 87 MG/DL BUN (test code = 2208) 8 MG/DL CREATININE (test code = 2214) 0.95 MG/DL eGFR (2020 CKD-EPI) (test co de = 40070) 72 ML/MIN/1.73 CALC BUN/CREAT (test code = [...] ALT (test code = 2219) 18 U/L ROSEANNA Lagunas [id number] 00:00:00* Test Item Value Reference Range Interpretation Comme nts TSH, THIRD GENERATION (test code = 2821) 3.120 UIU/ML Alexx MendozaCOMPREHENSIVE METABOLIC [id number] 00:00:00* Test Item Value Reference Range Interpretation Comme nts GLUCOSE (test code = 2217) 87 MG/DL BUN (test code = 2208) 8 MG/DL CREATININE (test code = 2214) 0.95 MG/DL eGFR (2020 CKD-EPI) (test co de = 04473) 72 ML/MIN/1.73 CALC BUN/CREAT (test code = [...] = 2219) 18 U/L Alexx LandH, THIRD [id number] 00:00:00* Test Item Value Reference Range Interpretation Comme nts TSH, THIRD GENERATION (test code = 2821) 3.120 UIU/ML Alexx MendozaCOMPREHENSIVE METABOLIC [id number] 00:00:00* Test Item Value Reference Range Interpretation Comme nts GLUCOSE (test code = 2217) 87 MG/DL BUN (test code = 2208) 8 MG/DL CREATININE (test code = 2214) 0.95 MG/DL eGFR (2020 CKD-EPI) (test co de = 29275) 72 ML/MIN/1.73 CALC BUN/CREAT (test code = [...] ALT (test code = 2219) 18 U/L ROSEANNA Lagunas [id number] 00:00:00* Test Item Value Reference Range Interpretation Comme nts TSH, THIRD GENERATION (test code = 2821) 3.120 UIU/ML Alexx MendozaCOMPREHENSIVE METABOLIC [id number] 00:00:00* Test Item Value Reference Range Interpretation Comme nts GLUCOSE (test code = 2217) 87 MG/DL BUN (test code = 2208) 8 MG/DL CREATININE (test code = 2214) 0.95 MG/DL eGFR (2020 CKD-EPI) (test co de = 13488) 72 ML/MIN/1.73 CALC BUN/CREAT (test code = [...] ALT (test code = 2219) 18 U/L ROSEANNA Lagunas2023-12-08 00:00:00* Test Item Value Reference Range Interpretation Comme nts TSH, THIRD GENERATION (test code = 2821) 3.120 UIU/ML Alexx MendozaCOMPREHENSIVE METABOLIC [id number] 00:00:00* Test Item Value Reference Range Interpretation Comme nts GLUCOSE (test code = 2217) 87 MG/DL BUN (test code = 2208) 8 MG/DL CREATININE (test code = 2214) 0.95 MG/DL eGFR (2020 CKD-EPI) (test co de = 40580) 72 ML/MIN/1.73 CALC BUN/CREAT (test code = [...] = 2219) 18 U/L Alexx LandH, THIRD [id number] 00:00:00* Test Item Value Reference Range Interpretation Comme nts TSH, THIRD GENERATION (test code = 2821) 3.120 UIU/ML Alexx MendozaCOMPREHENSIVE METABOLIC [id number] 00:00:00* Test Item Value Reference Range Interpretation Comme nts GLUCOSE (test code = 2217) 87 MG/DL BUN (test code = 2208) 8 MG/DL CREATININE (test code = 2214) 0.95 MG/DL eGFR (2020 CKD-EPI) (test co de = 62917) 72 ML/MIN/1.73 CALC BUN/CREAT (test code = [...] ALT (test code = 2219) 18 U/L ROSEANNA Lagunas2023-12-08 00:00:00* Test Item Value Reference Range Interpretation Comme nts TSH, THIRD GENERATION (test code = 2821) 3.120 UIU/ML Alexx MendozaCOMPREHENSIVE METABOLIC [id number] 00:00:00* Test Item Value Reference Range Interpretation Comme nts GLUCOSE (test code = 2217) 87 MG/DL BUN (test code = 2208) 8 MG/DL CREATININE (test code = 2214) 0.95 MG/DL eGFR (2020 CKD-EPI) (test co de = 68745) 72 ML/MIN/1.73 CALC BUN/CREAT (test code = [...] ALT (test code = 2219) 18 U/L ROSEANNA Lagunas2023-12-08 00:00:00* Test Item Value Reference Range Interpretation Comme nts TSH, THIRD GENERATION (test code = 2821) 3.120 UIU/ML Alexx MendozaCOMPREHENSIVE METABOLIC [id number] 00:00:00* Test Item Value Reference Range Interpretation Comme nts GLUCOSE (test code = 2217) 87 MG/DL BUN (test code = 2208) 8 MG/DL CREATININE (test code = 2214) 0.95 MG/DL eGFR (2020 CKD-EPI) (test co de = 33152) 72 ML/MIN/1.73 CALC BUN/CREAT (test code = [...] (test code = 2219) 18 U/L Alexx MendozaBRAXTON, THIRD [id number] 00:00:00* Test Item Value Reference Range Interpretation Comme nts TSH, THIRD GENERATION (test code = 2821) 3.120 UIU/ML Alexx Soliman RejiCBC (INCLUDES DIFF/PLT)2023-08-18 00:00:00* Test Item Value Reference [...] cells/uL ABSOLUTE BAND NEUTROPHILS (test code = 41481-0) DNR cells/uL ABSOLUTE METAMYELOCYTES (christina t code = 35500-9) DNR cells/uL ABSOLUTE MYELOCYTES (test code = 57648-7) DNR cells/uL ABSOLUTE PROMYELOCYTES (test code = 62981-4) DNR cells/uL ABSOLUTE LYMPHOCYTES (test code = 731-0) 1940 cells/uL ABSOLUTE MONOCYTES (test cod e = 742-7) 950 cells/uL ABSOLUTE EOSINOPHILS (test code = 711-2) 129 cells/uL ABSOLUTE BASOPHILS (test cod e = 704-7) 50 cells/uL ABSOLUTE BLASTS (test code = 01748-7) DNR cells/uL ABSOLUTE NUCLEATED RBC (test code = 30582-0) DNR cells/uL NEUTROPHILS (test code = 770-8) 69 % BAND NEUTROPHILS (test code = 764-1) DNR % METAMYELOCYTES (test code = 740-1) DNR % MYELOCYTES (test code = 749-2) DNR % PROMYELOCYTES (test code = 783-1) DNR % LYMPHOCYTES (test code = 736-9) 19.6 % REACTIVE LYMPHOCYTES (test code = 98226-3) DNR % MONOCYTES (test code = 5905-5) 9.6 % EOSINOPHILS (test code = 713-8) 1.3 % BASOPHILS (test code = 706-2) 0.5 % BLASTS (test code = 709-6) DNR % NUCLEATED RBC (test code = 82631-0) DNR /100WBC COMMENT(S) (test code = 8251-1) DNR Alexx MendozaLIPID PANEL (REFL)2023-08-18 00:00:00* Test Item Value Reference Range Interpretation Comme nts CHOLESTEROL, TOTAL (test cod e = 2093-3) 153 mg/dL HDL CHOLESTEROL (test code = 2085-9) 66 mg/dL TRIGLYCERIDES (test code = 2571-8) 79 mg/dL LDL-CHOLESTEROL (test code = 39557-1) 71 mg/dL(calc) CHOL/HDLC RATIO (test code = 9830-1) 2.3 (calc) NON HDL CHOLESTEROL (test co de = 33727-0) 87 mg/dL(calc) Alexx MendozaCOMPREHENSIVE METABOLIC [id number] 00:00:00* Test Item Value Reference Range Interpretation Comme nts GLUCOSE (test code = 2345-7) 77 mg/dL UREA NITROGEN (BUN) (test code = 3094-0) 11 mg/dL CREATININE (test code = 2160-0) 1.02 mg/dL EGFR (test code = 89886-7) 66 mL/min/1.73m2 BUN/CREATININE RATIO (test code = 3097-3) SEE NOTE: (calc) SODIUM (test code = 2951-2) 136 mmol/L POTASSIUM (test code = 2823-3) 4.2 mmol/L CHLORIDE (test code = 2075-0) 104 mmol/L CARBON DIOXIDE (test code = 2027-9) 22 mmol/L CALCIUM (test code = 78897-6) 9.2 mg/dL PROTEIN, TOTAL (test code = 2885-2) 7.5 g/dL ALBUMIN (test code = 1751-7) 4.1 g/dL GLOBULIN (test code = 61363-2) 3.4 g/dL(calc) ALBUMIN/GLOBULIN RATIO (test code = 1759-0) 1.2 (calc) BILIRUBIN, TOTAL (test code = 1975-2) 0.5 mg/dL ALKALINE PHOSPHATASE (test code = 6768-6) 65 U/L AST (test code = 1920-8) 19 U/L ALT (test code = 1742-6) 16 U/L Alexx [id number] 00:00:00* Test Item Value Reference Range Interpretation [...] cells/uL ABSOLUTE BAND NEUTROPHILS (test code = 59915-3) DNR cells/uL ABSOLUTE METAMYELOCYTES (christina t code = 56583-3) DNR cells/uL ABSOLUTE MYELOCYTES (test code = 90421-7) DNR cells/uL ABSOLUTE PROMYELOCYTES (test code = 41621-0) DNR cells/uL ABSOLUTE LYMPHOCYTES (test code = 731-0) 1940 cells/uL ABSOLUTE MONOCYTES (test cod e = 742-7) 950 cells/uL ABSOLUTE EOSINOPHILS (test code = 711-2) 129 cells/uL ABSOLUTE BASOPHILS (test cod e = 704-7) 50 cells/uL ABSOLUTE BLASTS (test code = 70377-0) DNR cells/uL ABSOLUTE NUCLEATED RBC (test code = 36884-3) DNR cells/uL NEUTROPHILS (test code = 770-8) 69 % BAND NEUTROPHILS (test code = 764-1) DNR % METAMYELOCYTES (test code = 740-1) DNR % MYELOCYTES (test code = 749-2) DNR % PROMYELOCYTES (test code = 783-1) DNR % LYMPHOCYTES (test code = 736-9) 19.6 % REACTIVE LYMPHOCYTES (test code = 02512-6) DNR % MONOCYTES (test code = 5905-5) 9.6 % EOSINOPHILS (test code = 713-8) 1.3 % BASOPHILS (test code = 706-2) 0.5 % BLASTS (test code = 709-6) DNR % NUCLEATED RBC (test code = 21337-7) DNR /100WBC COMMENT(S) (test code = 8251-1) DNR Alexx F AustinLIPID PANEL (REFL)2023-08-18 00:00:00* Test Item Value Reference Range Interpretation Comme nts CHOLESTEROL, TOTAL (test cod e = 2093-3) 153 mg/dL HDL CHOLESTEROL (test code = 2085-9) 66 mg/dL TRIGLYCERIDES (test code = 2571-8) 79 mg/dL LDL-CHOLESTEROL (test code = 43188-2) 71 mg/dL(calc) CHOL/HDLC RATIO (test code = 9830-1) 2.3 (calc) NON HDL CHOLESTEROL (test co de = 36288-4) 87 mg/dL(calc) Alexx MendozaCOMPREHENSIVE METABOLIC [id number] 00:00:00* Test Item Value Reference Range Interpretation Comme nts GLUCOSE (test code = 2345-7) 77 mg/dL UREA NITROGEN (BUN) (test code = 3094-0) 11 mg/dL CREATININE (test code = 2160-0) 1.02 mg/dL EGFR (test code = 42199-4) 66 mL/min/1.73m2 BUN/CREATININE RATIO (test code = 3097-3) SEE NOTE: (calc) SODIUM (test code = 2951-2) 136 mmol/L POTASSIUM (test code = 2823-3) 4.2 mmol/L CHLORIDE (test code = 2075-0) 104 mmol/L CARBON DIOXIDE (test code = 2027-9) 22 mmol/L CALCIUM (test code = 95656-1) 9.2 mg/dL PROTEIN, TOTAL (test code = 2885-2) 7.5 g/dL ALBUMIN (test code = 1751-7) 4.1 g/dL GLOBULIN (test code = 85724-7) 3.4 g/dL(calc) ALBUMIN/GLOBULIN RATIO (test code = 1759-0) 1.2 (calc) BILIRUBIN, TOTAL (test code = 1975-2) 0.5 mg/dL ALKALINE PHOSPHATASE (test code = 6768-6) 65 U/L AST (test code = 1920-8) 19 U/L ALT (test code = 1742-6) 16 U/L Alexx [id number] 00:00:00* Test Item Value Reference Range Interpretation [...] cells/uL ABSOLUTE BAND NEUTROPHILS (test code = 14162-0) DNR cells/uL ABSOLUTE METAMYELOCYTES (christina t code = 47600-8) DNR cells/uL ABSOLUTE MYELOCYTES (test code = 13421-6) DNR cells/uL ABSOLUTE PROMYELOCYTES (test code = 93229-8) DNR cells/uL ABSOLUTE LYMPHOCYTES (test code = 731-0) 1940 cells/uL ABSOLUTE MONOCYTES (test cod e = 742-7) 950 cells/uL ABSOLUTE EOSINOPHILS (test code = 711-2) 129 cells/uL ABSOLUTE BASOPHILS (test cod e = 704-7) 50 cells/uL ABSOLUTE BLASTS (test code = 44000-8) DNR cells/uL ABSOLUTE NUCLEATED RBC (test code = 12613-9) DNR cells/uL NEUTROPHILS (test code = 770-8) 69 % BAND NEUTROPHILS (test code = 764-1) DNR % METAMYELOCYTES (test code = 740-1) DNR % MYELOCYTES (test code = 749-2) DNR % PROMYELOCYTES (test code = 783-1) DNR % LYMPHOCYTES (test code = 736-9) 19.6 % REACTIVE LYMPHOCYTES (test code = 82715-2) DNR % MONOCYTES (test code = 5905-5) 9.6 % EOSINOPHILS (test code = 713-8) 1.3 % BASOPHILS (test code = 706-2) 0.5 % BLASTS (test code = 709-6) DNR % NUCLEATED RBC (test code = 11287-0) DNR /100WBC COMMENT(S) (test code = 8251-1) DNR Alexx F AustinLIPID PANEL (REFL)2023-08-18 00:00:00* Test Item Value Reference Range Interpretation Comme nts CHOLESTEROL, TOTAL (test cod e = 2093-3) 153 mg/dL HDL CHOLESTEROL (test code = 2085-9) 66 mg/dL TRIGLYCERIDES (test code = 2571-8) 79 mg/dL LDL-CHOLESTEROL (test code = 92747-9) 71 mg/dL(calc) CHOL/HDLC RATIO (test code = 9830-1) 2.3 (calc) NON HDL CHOLESTEROL (test co de = 72445-6) 87 mg/dL(calc) Alexx MendozaCOMPREHENSIVE METABOLIC [id number] 00:00:00* Test Item Value Reference Range Interpretation Comme nts GLUCOSE (test code = 2345-7) 77 mg/dL UREA NITROGEN (BUN) (test code = 3094-0) 11 mg/dL CREATININE (test code = 2160-0) 1.02 mg/dL EGFR (test code = 71308-3) 66 mL/min/1.73m2 BUN/CREATININE RATIO (test code = 3097-3) SEE NOTE: (calc) SODIUM (test code = 2951-2) 136 mmol/L POTASSIUM (test code = 2823-3) 4.2 mmol/L CHLORIDE (test code = 2075-0) 104 mmol/L CARBON DIOXIDE (test code = 2027-9) 22 mmol/L CALCIUM (test code = 71261-8) 9.2 mg/dL PROTEIN, TOTAL (test code = 2885-2) 7.5 g/dL ALBUMIN (test code = 1751-7) 4.1 g/dL GLOBULIN (test code = 72401-4) 3.4 g/dL(calc) ALBUMIN/GLOBULIN RATIO (test code = 1759-0) 1.2 (calc) BILIRUBIN, TOTAL (test code = 1975-2) 0.5 mg/dL ALKALINE PHOSPHATASE (test code = 6768-6) 65 U/L AST (test code = 1920-8) 19 U/L ALT (test code = 1742-6) 16 U/L Alexx [id number] 00:00:00* Test Item Value Reference Range Interpretation Comme nts TSH (test code = 3016-3) 1.13 mIU/L Alexx Soliman RejiCBC (INCLUDES DIFF/PLT)2023-08-18 00:00:00* Test Item Value Reference [...] cells/uL ABSOLUTE BAND NEUTROPHILS (test code = 69818-4) DNR cells/uL ABSOLUTE METAMYELOCYTES (christina t code = 47244-1) DNR cells/uL ABSOLUTE MYELOCYTES (test code = 91251-4) DNR cells/uL ABSOLUTE PROMYELOCYTES (test code = 31764-8) DNR cells/uL ABSOLUTE LYMPHOCYTES (test code = 731-0) 1940 cells/uL ABSOLUTE MONOCYTES (test cod e = 742-7) 950 cells/uL ABSOLUTE EOSINOPHILS (test code = 711-2) 129 cells/uL ABSOLUTE BASOPHILS (test cod e = 704-7) 50 cells/uL ABSOLUTE BLASTS (test code = 57986-5) DNR cells/uL ABSOLUTE NUCLEATED RBC (test code = 21971-3) DNR cells/uL NEUTROPHILS (test code = 770-8) 69 % BAND NEUTROPHILS (test code = 764-1) DNR % METAMYELOCYTES (test code = 740-1) DNR % MYELOCYTES (test code = 749-2) DNR % PROMYELOCYTES (test code = 783-1) DNR % LYMPHOCYTES (test code = 736-9) 19.6 % REACTIVE LYMPHOCYTES (test code = 65324-0) DNR % MONOCYTES (test code = 5905-5) 9.6 % EOSINOPHILS (test code = 713-8) 1.3 % BASOPHILS (test code = 706-2) 0.5 % BLASTS (test code = 709-6) DNR % NUCLEATED RBC (test code = 34952-6) DNR /100WBC COMMENT(S) (test code = 8251-1) DNR Alexx MendozaLIPID PANEL (REFL)2023-08-18 00:00:00* Test Item Value Reference Range Interpretation Comme nts CHOLESTEROL, TOTAL (test cod e = 2093-3) 153 mg/dL HDL CHOLESTEROL (test code = 2085-9) 66 mg/dL TRIGLYCERIDES (test code = 2571-8) 79 mg/dL LDL-CHOLESTEROL (test code = 26232-5) 71 mg/dL(calc) CHOL/HDLC RATIO (test code = 9830-1) 2.3 (calc) NON HDL CHOLESTEROL (test co de = 68880-6) 87 mg/dL(calc) Alexx MendozaCOMPREHENSIVE METABOLIC [id number] 00:00:00* Test Item Value Reference Range Interpretation Comme nts GLUCOSE (test code = 2345-7) 77 mg/dL UREA NITROGEN (BUN) (test code = 3094-0) 11 mg/dL CREATININE (test code = 2160-0) 1.02 mg/dL EGFR (test code = 23429-6) 66 mL/min/1.73m2 BUN/CREATININE RATIO (test code = 3097-3) SEE NOTE: (calc) SODIUM (test code = 2951-2) 136 mmol/L POTASSIUM (test code = 2823-3) 4.2 mmol/L CHLORIDE (test code = 2075-0) 104 mmol/L CARBON DIOXIDE (test code = 2027-9) 22 mmol/L CALCIUM (test code = 74808-2) 9.2 mg/dL PROTEIN, TOTAL (test code = 2885-2) 7.5 g/dL ALBUMIN (test code = 1751-7) 4.1 g/dL GLOBULIN (test code = 71926-2) 3.4 g/dL(calc) ALBUMIN/GLOBULIN RATIO (test code = 1759-0) 1.2 (calc) BILIRUBIN, TOTAL (test code = 1975-2) 0.5 mg/dL ALKALINE PHOSPHATASE (test code = 6768-6) 65 U/L AST (test code = 1920-8) 19 U/L ALT (test code = 1742-6) 16 U/L Alexx [id number] 00:00:00* Test Item Value Reference Range Interpretation [...] cells/uL ABSOLUTE BAND NEUTROPHILS (test code = 32355-6) DNR cells/uL ABSOLUTE METAMYELOCYTES (christina t code = 31950-7) DNR cells/uL ABSOLUTE MYELOCYTES (test code = 81578-9) DNR cells/uL ABSOLUTE PROMYELOCYTES (test code = 54731-5) DNR cells/uL ABSOLUTE LYMPHOCYTES (test code = 731-0) 1940 cells/uL ABSOLUTE MONOCYTES (test cod e = 742-7) 950 cells/uL ABSOLUTE EOSINOPHILS (test code = 711-2) 129 cells/uL ABSOLUTE BASOPHILS (test cod e = 704-7) 50 cells/uL ABSOLUTE BLASTS (test code = 48848-9) DNR cells/uL ABSOLUTE NUCLEATED RBC (test code = 33291-3) DNR cells/uL NEUTROPHILS (test code = 770-8) 69 % BAND NEUTROPHILS (test code = 764-1) DNR % METAMYELOCYTES (test code = 740-1) DNR % MYELOCYTES (test code = 749-2) DNR % PROMYELOCYTES (test code = 783-1) DNR % LYMPHOCYTES (test code = 736-9) 19.6 % REACTIVE LYMPHOCYTES (test code = 78382-4) DNR % MONOCYTES (test code = 5905-5) 9.6 % EOSINOPHILS (test code = 713-8) 1.3 % BASOPHILS (test code = 706-2) 0.5 % BLASTS (test code = 709-6) DNR % NUCLEATED RBC (test code = 96706-0) DNR /100WBC COMMENT(S) (test code = 8251-1) DNR Alexx Soliman AustinLIPID PANEL (REFL)2023-08-18 00:00:00* Test Item Value Reference Range Interpretation Comme nts CHOLESTEROL, TOTAL (test cod e = 2093-3) 153 mg/dL HDL CHOLESTEROL (test code = 2085-9) 66 mg/dL TRIGLYCERIDES (test code = 2571-8) 79 mg/dL LDL-CHOLESTEROL (test code = 81974-6) 71 mg/dL(calc) CHOL/HDLC RATIO (test code = 9830-1) 2.3 (calc) NON HDL CHOLESTEROL (test co de = 54966-8) 87 mg/dL(calc) Alexx MendozaCOMPREHENSIVE METABOLIC [id number] 00:00:00* Test Item Value Reference Range Interpretation Comme nts GLUCOSE (test code = 2345-7) 77 mg/dL UREA NITROGEN (BUN) (test code = 3094-0) 11 mg/dL CREATININE (test code = 2160-0) 1.02 mg/dL EGFR (test code = 91906-0) 66 mL/min/1.73m2 BUN/CREATININE RATIO (test code = 3097-3) SEE NOTE: (calc) SODIUM (test code = 2951-2) 136 mmol/L POTASSIUM (test code = 2823-3) 4.2 mmol/L CHLORIDE (test code = 2075-0) 104 mmol/L CARBON DIOXIDE (test code = 2027-9) 22 mmol/L CALCIUM (test code = 37807-8) 9.2 mg/dL PROTEIN, TOTAL (test code = 2885-2) 7.5 g/dL ALBUMIN (test code = 1751-7) 4.1 g/dL GLOBULIN (test code = 30200-6) 3.4 g/dL(calc) ALBUMIN/GLOBULIN RATIO (test code = 1759-0) 1.2 (calc) BILIRUBIN, TOTAL (test code = 1975-) 0.5 mg/dL ALKALINE PHOSPHATASE (test code = 6768-6) 65 U/L AST (test code = 1920-8) 19 U/L ALT (test code = 1742-6) 16 U/L Alexx [id number] 00:00:00* Test Item Value Reference Range Interpretation [...] cells/uL ABSOLUTE BAND NEUTROPHILS (test code = 79713-3) DNR cells/uL ABSOLUTE METAMYELOCYTES (christina t code = 59437-2) DNR cells/uL ABSOLUTE MYELOCYTES (test code = 49332-7) DNR cells/uL ABSOLUTE PROMYELOCYTES (test code = 10484-2) DNR cells/uL ABSOLUTE LYMPHOCYTES (test code = 731-0) 1940 cells/uL ABSOLUTE MONOCYTES (test cod e = 742-7) 950 cells/uL ABSOLUTE EOSINOPHILS (test code = 711-2) 129 cells/uL ABSOLUTE BASOPHILS (test cod e = 704-7) 50 cells/uL ABSOLUTE BLASTS (test code = 99590-9) DNR cells/uL ABSOLUTE NUCLEATED RBC (test code = 80811-1) DNR cells/uL NEUTROPHILS (test code = 770-8) 69 % BAND NEUTROPHILS (test code = 764-1) DNR % METAMYELOCYTES (test code = 740-1) DNR % MYELOCYTES (test code = 749-2) DNR % PROMYELOCYTES (test code = 783-1) DNR % LYMPHOCYTES (test code = 736-9) 19.6 % REACTIVE LYMPHOCYTES (test code = 02356-0) DNR % MONOCYTES (test code = 5905-5) 9.6 % EOSINOPHILS (test code = 713-8) 1.3 % BASOPHILS (test code = 706-2) 0.5 % BLASTS (test code = 709-6) DNR % NUCLEATED RBC (test code = 13242-9) DNR /100WBC COMMENT(S) (test code = 8251-1) DNR Alexx Soliman RejiLIPID PANEL (REFL)2023-08-18 00:00:00* Test Item Value Reference Range Interpretation Comme nts CHOLESTEROL, TOTAL (test cod e = 2093-3) 153 mg/dL HDL CHOLESTEROL (test code = 2085-9) 66 mg/dL TRIGLYCERIDES (test code = 2571-8) 79 mg/dL LDL-CHOLESTEROL (test code = 43278-8) 71 mg/dL(calc) CHOL/HDLC RATIO (test code = 9830-1) 2.3 (calc) NON HDL CHOLESTEROL (test co de = 03093-1) 87 mg/dL(calc) Alexx MendozaCOMPREHENSIVE METABOLIC [id number] 00:00:00* Test Item Value Reference Range Interpretation Comme nts GLUCOSE (test code = 2345-7) 77 mg/dL UREA NITROGEN (BUN) (test code = 3094-0) 11 mg/dL CREATININE (test code = 2160-0) 1.02 mg/dL EGFR (test code = 75523-5) 66 mL/min/1.73m2 BUN/CREATININE RATIO (test code = 3097-3) SEE NOTE: (calc) SODIUM (test code = 2951-2) 136 mmol/L POTASSIUM (test code = 2823-3) 4.2 mmol/L CHLORIDE (test code = 2075-0) 104 mmol/L CARBON DIOXIDE (test code = 8-9) 22 mmol/L CALCIUM (test code = 98156-8) 9.2 mg/dL PROTEIN, TOTAL (test code = 2885-2) 7.5 g/dL ALBUMIN (test code = 1751-7) 4.1 g/dL GLOBULIN (test code = 89999-5) 3.4 g/dL(calc) ALBUMIN/GLOBULIN RATIO (test code = 1759-0) 1.2 (calc) BILIRUBIN, TOTAL (test code = 1974-2) 0.5 mg/dL ALKALINE PHOSPHATASE (test code = 6768-6) 65 U/L AST (test code = 1920-8) 19 U/L ALT (test code = 1742-6) 16 U/L Alexx [id number] 00:00:00* Test Item Value Reference Range Interpretation [...] cells/uL ABSOLUTE BAND NEUTROPHILS (test code = 75416-0) DNR cells/uL ABSOLUTE METAMYELOCYTES (christina t code = 82937-6) DNR cells/uL ABSOLUTE MYELOCYTES (test code = 49987-5) DNR cells/uL ABSOLUTE PROMYELOCYTES (test code = 62858-9) DNR cells/uL ABSOLUTE LYMPHOCYTES (test code = 731-0) 1940 cells/uL ABSOLUTE MONOCYTES (test cod e = 742-7) 950 cells/uL ABSOLUTE EOSINOPHILS (test code = 711-2) 129 cells/uL ABSOLUTE BASOPHILS (test cod e = 704-7) 50 cells/uL ABSOLUTE BLASTS (test code = 26236-9) DNR cells/uL ABSOLUTE NUCLEATED RBC (test code = 24305-4) DNR cells/uL NEUTROPHILS (test code = 770-8) 69 % BAND NEUTROPHILS (test code = 764-1) DNR % METAMYELOCYTES (test code = 740-1) DNR % MYELOCYTES (test code = 749-2) DNR % PROMYELOCYTES (test code = 783-1) DNR % LYMPHOCYTES (test code = 736-9) 19.6 % REACTIVE LYMPHOCYTES (test code = 71690-5) DNR % MONOCYTES (test code = 5905-5) 9.6 % EOSINOPHILS (test code = 713-8) 1.3 % BASOPHILS (test code = 706-2) 0.5 % BLASTS (test code = 709-6) DNR % NUCLEATED RBC (test code = 61016-2) DNR /100WBC COMMENT(S) (test code = 8251-1) DNR Alexx Janny RejiLIPID PANEL (REFL)2023-08-18 00:00:00* Test Item Value Reference Range Interpretation Comme nts CHOLESTEROL, TOTAL (test cod e = 2093-3) 153 mg/dL HDL CHOLESTEROL (test code = 2085-9) 66 mg/dL TRIGLYCERIDES (test code = 2571-8) 79 mg/dL LDL-CHOLESTEROL (test code = 05032-7) 71 mg/dL(calc) CHOL/HDLC RATIO (test code = 9830-1) 2.3 (calc) NON HDL CHOLESTEROL (test co de = 34970-5) 87 mg/dL(calc) Alexx MendozaCOMPREHENSIVE METABOLIC [id number] 00:00:00* Test Item Value Reference Range Interpretation Comme nts GLUCOSE (test code = 2345-7) 77 mg/dL UREA NITROGEN (BUN) (test code = 3094-0) 11 mg/dL CREATININE (test code = 2160-0) 1.02 mg/dL EGFR (test code = 01824-6) 66 mL/min/1.73m2 BUN/CREATININE RATIO (test code = 3097-3) SEE NOTE: (calc) SODIUM (test code = 2951-2) 136 mmol/L POTASSIUM (test code = 2823-3) 4.2 mmol/L CHLORIDE (test code = 2075-0) 104 mmol/L CARBON DIOXIDE (test code = 2027-9) 22 mmol/L CALCIUM (test code = 68134-4) 9.2 mg/dL PROTEIN, TOTAL (test code = 2885-2) 7.5 g/dL ALBUMIN (test code = 1751-7) 4.1 g/dL GLOBULIN (test code = 28622-1) 3.4 g/dL(calc) ALBUMIN/GLOBULIN RATIO (test code = 1759-0) 1.2 (calc) BILIRUBIN, TOTAL (test code = 1974-2) 0.5 mg/dL ALKALINE PHOSPHATASE (test code = 6768-6) 65 U/L AST (test code = 1920-8) 19 U/L ALT (test code = 1742-6) 16 U/L Alexx [id number] 00:00:00* Test Item Value Reference Range Interpretation [...] cells/uL ABSOLUTE BAND NEUTROPHILS (test code = 38185-6) DNR cells/uL ABSOLUTE METAMYELOCYTES (christina t code = 78577-0) DNR cells/uL ABSOLUTE MYELOCYTES (test code = 06521-8) DNR cells/uL ABSOLUTE PROMYELOCYTES (test code = 08375-4) DNR cells/uL ABSOLUTE LYMPHOCYTES (test code = 731-0) 1940 cells/uL ABSOLUTE MONOCYTES (test cod e = 742-7) 950 cells/uL ABSOLUTE EOSINOPHILS (test code = 711-2) 129 cells/uL ABSOLUTE BASOPHILS (test cod e = 704-7) 50 cells/uL ABSOLUTE BLASTS (test code = 32899-6) DNR cells/uL ABSOLUTE NUCLEATED RBC (test code = 49574-9) DNR cells/uL NEUTROPHILS (test code = 770-8) 69 % BAND NEUTROPHILS (test code = 764-1) DNR % METAMYELOCYTES (test code = 740-1) DNR % MYELOCYTES (test code = 749-2) DNR % PROMYELOCYTES (test code = 783-1) DNR % LYMPHOCYTES (test code = 736-9) 19.6 % REACTIVE LYMPHOCYTES (test code = 27102-0) DNR % MONOCYTES (test code = 5905-5) 9.6 % EOSINOPHILS (test code = 713-8) 1.3 % BASOPHILS (test code = 706-2) 0.5 % BLASTS (test code = 709-6) DNR % NUCLEATED RBC (test code = 34612-2) DNR /100WBC COMMENT(S) (test code = 8251-1) DNR Alexx Soliman RejiLIPID PANEL (REFL)2023-08-18 00:00:00* Test Item Value Reference Range Interpretation Comme nts CHOLESTEROL, TOTAL (test cod e = 2093-3) 153 mg/dL HDL CHOLESTEROL (test code = 2085-9) 66 mg/dL TRIGLYCERIDES (test code = 2571-8) 79 mg/dL LDL-CHOLESTEROL (test code = 92932-4) 71 mg/dL(calc) CHOL/HDLC RATIO (test code = 9830-1) 2.3 (calc) NON HDL CHOLESTEROL (test co de = 42088-0) 87 mg/dL(calc) Alexx Soliman RejiCOMPREHENSIVE METABOLIC [id number] 00:00:00* Test Item Value Reference Range Interpretation Comme nts GLUCOSE (test code = 2345-7) 77 mg/dL UREA NITROGEN (BUN) (test code = 3094-0) 11 mg/dL CREATININE (test code = 2160-0) 1.02 mg/dL EGFR (test code = 14811-5) 66 mL/min/1.73m2 BUN/CREATININE RATIO (test code = 3097-3) SEE NOTE: (calc) SODIUM (test code = 2951-2) 136 mmol/L POTASSIUM (test code = 2823-3) 4.2 mmol/L CHLORIDE (test code = 2075-0) 104 mmol/L CARBON DIOXIDE (test code = 2027-9) 22 mmol/L CALCIUM (test code = 01463-4) 9.2 mg/dL PROTEIN, TOTAL (test code = 2885-2) 7.5 g/dL ALBUMIN (test code = 1751-7) 4.1 g/dL GLOBULIN (test code = 30412-1) 3.4 g/dL(calc) ALBUMIN/GLOBULIN RATIO (test code = 1759-0) 1.2 (calc) BILIRUBIN, TOTAL (test code = 1975-2) 0.5 mg/dL ALKALINE PHOSPHATASE (test code = 6768-6) 65 U/L AST (test code = 1920-8) 19 U/L ALT (test code = 1742-6) 16 U/L Alexx [id number] 00:00:00* Test Item Value Reference Range Interpretation Comme chele TSH (test code = 3016-3) 1.13 mIU/L Alexx MendozaCBC (INCLUDES DIFF/PLT)2023-08-18 00:00:00* Test Item Value Reference Range Interpretation Comme chele WHITE BLOOD CELL COUNT (test code = [...] cells/uL ABSOLUTE BAND NEUTROPHILS (test code = 56440-8) DNR cells/uL ABSOLUTE METAMYELOCYTES (christina t code = 00366-6) DNR cells/uL ABSOLUTE MYELOCYTES (test code = 97553-8) DNR cells/uL ABSOLUTE PROMYELOCYTES (test code = 90975-1) DNR cells/uL ABSOLUTE LYMPHOCYTES (test code = 731-0) 1940 cells/uL ABSOLUTE MONOCYTES (test cod e = 742-7) 950 cells/uL ABSOLUTE EOSINOPHILS (test code = 711-2) 129 cells/uL ABSOLUTE BASOPHILS (test cod e = 704-7) 50 cells/uL ABSOLUTE BLASTS (test code = 12423-5) DNR cells/uL ABSOLUTE NUCLEATED RBC (test code = 89145-9) DNR cells/uL NEUTROPHILS (test code = 770-8) 69 % BAND NEUTROPHILS (test code = 764-1) DNR % METAMYELOCYTES (test code = 740-1) DNR % MYELOCYTES (test code = 749-2) DNR % PROMYELOCYTES (test code = 783-1) DNR % LYMPHOCYTES (test code = 736-9) 19.6 % REACTIVE LYMPHOCYTES (test code = 73091-4) DNR % MONOCYTES (test code = 5905-5) 9.6 % EOSINOPHILS (test code = 713-8) 1.3 % BASOPHILS (test code = 706-2) 0.5 % BLASTS (test code = 709-6) DNR % NUCLEATED RBC (test code = 98793-5) DNR /100WBC COMMENT(S) (test code = 8251-1) DNR Alexx MendozaLIPID PANEL (REFL)2023-08-18 00:00:00* Test Item Value Reference Range Interpretation Comme nts CHOLESTEROL, TOTAL (test cod e = 2093-3) 153 mg/dL HDL CHOLESTEROL (test code = 2085-9) 66 mg/dL TRIGLYCERIDES (test code = 2571-8) 79 mg/dL LDL-CHOLESTEROL (test code = 73228-5) 71 mg/dL(calc) CHOL/HDLC RATIO (test code = 9830-1) 2.3 (calc) NON HDL CHOLESTEROL (test co de = 90369-1) 87 mg/dL(calc) Alexx MendozaCOMPREHENSIVE METABOLIC [id number] 00:00:00* Test Item Value Reference Range Interpretation Comme nts GLUCOSE (test code = 2345-7) 77 mg/dL UREA NITROGEN (BUN) (test code = 3094-0) 11 mg/dL CREATININE (test code = 2160-0) 1.02 mg/dL EGFR (test code = 11347-0) 66 mL/min/1.73m2 BUN/CREATININE RATIO (test code = 3097-3) SEE NOTE: (calc) SODIUM (test code = 2951-2) 136 mmol/L POTASSIUM (test code = 2823-3) 4.2 mmol/L CHLORIDE (test code = 2075-0) 104 mmol/L CARBON DIOXIDE (test code = 2027-9) 22 mmol/L CALCIUM (test code = 54477-6) 9.2 mg/dL PROTEIN, TOTAL (test code = 2885-2) 7.5 g/dL ALBUMIN (test code = 1751-7) 4.1 g/dL GLOBULIN (test code = 64613-4) 3.4 g/dL(calc) ALBUMIN/GLOBULIN RATIO (test code = 1759-0) 1.2 (calc) BILIRUBIN, TOTAL (test code = 1975-2) 0.5 mg/dL ALKALINE PHOSPHATASE (test code = 6768-6) 65 U/L AST (test code = 1920-8) 19 U/L ALT (test code = 1742-6) 16 U/L Alexx MendozaBzcbfoVBS7050-10-12 00:00:00* Test Item Value Reference Range Interpretation [...] cells/uL ABSOLUTE BAND NEUTROPHILS (test code = 24317-3) DNR cells/uL ABSOLUTE METAMYELOCYTES (christina t code = 41562-3) DNR cells/uL ABSOLUTE MYELOCYTES (test code = 60506-2) DNR cells/uL ABSOLUTE PROMYELOCYTES (test code = 37874-3) DNR cells/uL ABSOLUTE LYMPHOCYTES (test code = 731-0) 1940 cells/uL ABSOLUTE MONOCYTES (test cod e = 742-7) 950 cells/uL ABSOLUTE EOSINOPHILS (test code = 711-2) 129 cells/uL ABSOLUTE BASOPHILS (test cod e = 704-7) 50 cells/uL ABSOLUTE BLASTS (test code = 67920-9) DNR cells/uL ABSOLUTE NUCLEATED RBC (test code = 18869-4) DNR cells/uL NEUTROPHILS (test code = 770-8) 69 % BAND NEUTROPHILS (test code = 764-1) DNR % METAMYELOCYTES (test code = 740-1) DNR % MYELOCYTES (test code = 749-2) DNR % PROMYELOCYTES (test code = 783-1) DNR % LYMPHOCYTES (test code = 736-9) 19.6 % REACTIVE LYMPHOCYTES (test code = 62436-3) DNR % MONOCYTES (test code = 5905-5) 9.6 % EOSINOPHILS (test code = 713-8) 1.3 % BASOPHILS (test code = 706-2) 0.5 % BLASTS (test code = 709-6) DNR % NUCLEATED RBC (test code = 86876-7) DNR /100WBC COMMENT(S) (test code = 8251-1) DNR Alexx F AustinLIPID PANEL (REFL)2023-08-18 00:00:00* Test Item Value Reference Range Interpretation Comme nts CHOLESTEROL, TOTAL (test cod e = 2093-3) 153 mg/dL HDL CHOLESTEROL (test code = 2085-9) 66 mg/dL TRIGLYCERIDES (test code = 2571-8) 79 mg/dL LDL-CHOLESTEROL (test code = 12471-4) 71 mg/dL(calc) CHOL/HDLC RATIO (test code = 9830-1) 2.3 (calc) NON HDL CHOLESTEROL (test co de = 44776-2) 87 mg/dL(calc) Alexx MendozaCOMPREHENSIVE METABOLIC [id number] 00:00:00* Test Item Value Reference Range Interpretation Comme nts GLUCOSE (test code = 2345-7) 77 mg/dL UREA NITROGEN (BUN) (test code = 3094-0) 11 mg/dL CREATININE (test code = 2160-0) 1.02 mg/dL EGFR (test code = 39108-0) 66 mL/min/1.73m2 BUN/CREATININE RATIO (test code = 3097-3) SEE NOTE: (calc) SODIUM (test code = 2951-2) 136 mmol/L POTASSIUM (test code = 2823-3) 4.2 mmol/L CHLORIDE (test code = 2075-0) 104 mmol/L CARBON DIOXIDE (test code = 2027-9) 22 mmol/L CALCIUM (test code = 13011-9) 9.2 mg/dL PROTEIN, TOTAL (test code = 2885-2) 7.5 g/dL ALBUMIN (test code = 1751-7) 4.1 g/dL GLOBULIN (test code = 88472-9) 3.4 g/dL(calc) ALBUMIN/GLOBULIN RATIO (test code = 1759-0) 1.2 (calc) BILIRUBIN, TOTAL (test code = 1975-2) 0.5 mg/dL ALKALINE PHOSPHATASE (test code = 6768-6) 65 U/L AST (test code = 1920-8) 19 U/L ALT (test code = 1742-6) 16 U/L Alexx [id number] 00:00:00* Test Item Value Reference Range Interpretation [...] cells/uL ABSOLUTE BAND NEUTROPHILS (test code = 50542-0) DNR cells/uL ABSOLUTE METAMYELOCYTES (christina t code = 54106-7) DNR cells/uL ABSOLUTE MYELOCYTES (test code = 84942-6) DNR cells/uL ABSOLUTE PROMYELOCYTES (test code = 01510-9) DNR cells/uL ABSOLUTE LYMPHOCYTES (test code = 731-0) 1940 cells/uL ABSOLUTE MONOCYTES (test cod e = 742-7) 950 cells/uL ABSOLUTE EOSINOPHILS (test code = 711-2) 129 cells/uL ABSOLUTE BASOPHILS (test cod e = 704-7) 50 cells/uL ABSOLUTE BLASTS (test code = 33603-0) DNR cells/uL ABSOLUTE NUCLEATED RBC (test code = 15406-5) DNR cells/uL NEUTROPHILS (test code = 770-8) 69 % BAND NEUTROPHILS (test code = 764-1) DNR % METAMYELOCYTES (test code = 740-1) DNR % MYELOCYTES (test code = 749-2) DNR % PROMYELOCYTES (test code = 783-1) DNR % LYMPHOCYTES (test code = 736-9) 19.6 % REACTIVE LYMPHOCYTES (test code = 48818-8) DNR % MONOCYTES (test code = 5905-5) 9.6 % EOSINOPHILS (test code = 713-8) 1.3 % BASOPHILS (test code = 706-2) 0.5 % BLASTS (test code = 709-6) DNR % NUCLEATED RBC (test code = 66298-3) DNR /100WBC COMMENT(S) (test code = 8251-1) DNR Alexx Soliman AustinLIPID PANEL (REFL)2023-08-18 00:00:00* Test Item Value Reference Range Interpretation Comme nts CHOLESTEROL, TOTAL (test cod e = 2093-3) 153 mg/dL HDL CHOLESTEROL (test code = 2085-9) 66 mg/dL TRIGLYCERIDES (test code = 2571-8) 79 mg/dL LDL-CHOLESTEROL (test code = 92932-3) 71 mg/dL(calc) CHOL/HDLC RATIO (test code = 9830-1) 2.3 (calc) NON HDL CHOLESTEROL (test co de = 44428-1) 87 mg/dL(calc) Alexx MendozaCOMPREHENSIVE METABOLIC [id number] 00:00:00* Test Item Value Reference Range Interpretation Comme nts GLUCOSE (test code = 2345-7) 77 mg/dL UREA NITROGEN (BUN) (test code = 3094-0) 11 mg/dL CREATININE (test code = 2160-0) 1.02 mg/dL EGFR (test code = 83146-0) 66 mL/min/1.73m2 BUN/CREATININE RATIO (test code = 3097-3) SEE NOTE: (calc) SODIUM (test code = 2951-2) 136 mmol/L POTASSIUM (test code = 2823-3) 4.2 mmol/L CHLORIDE (test code = 2075-0) 104 mmol/L CARBON DIOXIDE (test code = 2027-9) 22 mmol/L CALCIUM (test code = 85157-8) 9.2 mg/dL PROTEIN, TOTAL (test code = 2885-2) 7.5 g/dL ALBUMIN (test code = 1751-7) 4.1 g/dL GLOBULIN (test code = 99497-0) 3.4 g/dL(calc) ALBUMIN/GLOBULIN RATIO (test code = 1759-0) 1.2 (calc) BILIRUBIN, TOTAL (test code = 1975-2) 0.5 mg/dL ALKALINE PHOSPHATASE (test code = 6768-6) 65 U/L AST (test code = 1920-8) 19 U/L ALT (test code = 1742-6) 16 U/L Alexx [id number] 00:00:00* Test Item Value Reference Range Interpretation [...] cells/uL ABSOLUTE BAND NEUTROPHILS (test code = 66870-9) DNR cells/uL ABSOLUTE METAMYELOCYTES (christina t code = 46893-9) DNR cells/uL ABSOLUTE MYELOCYTES (test code = 33774-5) DNR cells/uL ABSOLUTE PROMYELOCYTES (test code = 31411-0) DNR cells/uL ABSOLUTE LYMPHOCYTES (test code = 731-0) 1940 cells/uL ABSOLUTE MONOCYTES (test cod e = 742-7) 950 cells/uL ABSOLUTE EOSINOPHILS (test code = 711-2) 129 cells/uL ABSOLUTE BASOPHILS (test cod e = 704-7) 50 cells/uL ABSOLUTE BLASTS (test code = 06389-1) DNR cells/uL ABSOLUTE NUCLEATED RBC (test code = 19756-9) DNR cells/uL NEUTROPHILS (test code = 770-8) 69 % BAND NEUTROPHILS (test code = 764-1) DNR % METAMYELOCYTES (test code = 740-1) DNR % MYELOCYTES (test code = 749-2) DNR % PROMYELOCYTES (test code = 783-1) DNR % LYMPHOCYTES (test code = 736-9) 19.6 % REACTIVE LYMPHOCYTES (test code = 19061-3) DNR % MONOCYTES (test code = 5905-5) 9.6 % EOSINOPHILS (test code = 713-8) 1.3 % BASOPHILS (test code = 706-2) 0.5 % BLASTS (test code = 709-6) DNR % NUCLEATED RBC (test code = 97478-4) DNR /100WBC COMMENT(S) (test code = 8251-1) DNR Alexx MendozaLIPID PANEL (REFL)2023-08-18 00:00:00* Test Item Value Reference Range Interpretation Comme nts CHOLESTEROL, TOTAL (test cod e = 2093-3) 153 mg/dL HDL CHOLESTEROL (test code = 2085-9) 66 mg/dL TRIGLYCERIDES (test code = 2571-8) 79 mg/dL LDL-CHOLESTEROL (test code = 88161-7) 71 mg/dL(calc) CHOL/HDLC RATIO (test code = 9830-1) 2.3 (calc) NON HDL CHOLESTEROL (test co de = 55483-8) 87 mg/dL(calc) Alexx MendozaCOMPREHENSIVE METABOLIC [id number] 00:00:00* Test Item Value Reference Range Interpretation Comme nts GLUCOSE (test code = 2345-7) 77 mg/dL UREA NITROGEN (BUN) (test code = 3094-0) 11 mg/dL CREATININE (test code = 2160-0) 1.02 mg/dL EGFR (test code = 81287-7) 66 mL/min/1.73m2 BUN/CREATININE RATIO (test code = 3097-3) SEE NOTE: (calc) SODIUM (test code = 2951-2) 136 mmol/L POTASSIUM (test code = 2823-3) 4.2 mmol/L CHLORIDE (test code = 2075-0) 104 mmol/L CARBON DIOXIDE (test code = 2027-9) 22 mmol/L CALCIUM (test code = 36275-8) 9.2 mg/dL PROTEIN, TOTAL (test code = 2885-2) 7.5 g/dL ALBUMIN (test code = 1751-7) 4.1 g/dL GLOBULIN (test code = 81205-2) 3.4 g/dL(calc) ALBUMIN/GLOBULIN RATIO (test code = 1759-0) 1.2 (calc) BILIRUBIN, TOTAL (test code = 1975-2) 0.5 mg/dL ALKALINE PHOSPHATASE (test code = 6768-6) 65 U/L AST (test code = 1920-8) 19 U/L ALT (test code = 1742-6) 16 U/L Alexx [id number] 00:00:00* Test Item Value Reference Range Interpretation [...] cells/uL ABSOLUTE BAND NEUTROPHILS (test code = 11792-5) DNR cells/uL ABSOLUTE METAMYELOCYTES (christina t code = 99974-2) DNR cells/uL ABSOLUTE MYELOCYTES (test code = 96458-0) DNR cells/uL ABSOLUTE PROMYELOCYTES (test code = 01829-3) DNR cells/uL ABSOLUTE LYMPHOCYTES (test code = 731-0) 1940 cells/uL ABSOLUTE MONOCYTES (test cod e = 742-7) 950 cells/uL ABSOLUTE EOSINOPHILS (test code = 711-2) 129 cells/uL ABSOLUTE BASOPHILS (test cod e = 704-7) 50 cells/uL ABSOLUTE BLASTS (test code = 16289-2) DNR cells/uL ABSOLUTE NUCLEATED RBC (test code = 00933-3) DNR cells/uL NEUTROPHILS (test code = 770-8) 69 % BAND NEUTROPHILS (test code = 764-1) DNR % METAMYELOCYTES (test code = 740-1) DNR % MYELOCYTES (test code = 749-2) DNR % PROMYELOCYTES (test code = 783-1) DNR % LYMPHOCYTES (test code = 736-9) 19.6 % REACTIVE LYMPHOCYTES (test code = 45428-2) DNR % MONOCYTES (test code = 5905-5) 9.6 % EOSINOPHILS (test code = 713-8) 1.3 % BASOPHILS (test code = 706-2) 0.5 % BLASTS (test code = 709-6) DNR % NUCLEATED RBC (test code = 45271-8) DNR /100WBC COMMENT(S) (test code = 8251-1) DNR Alexx Soliman AustinLIPID PANEL (REFL)2023-08-18 00:00:00* Test Item Value Reference Range Interpretation Comme nts CHOLESTEROL, TOTAL (test cod e = 2093-3) 153 mg/dL HDL CHOLESTEROL (test code = 2085-9) 66 mg/dL TRIGLYCERIDES (test code = 2571-8) 79 mg/dL LDL-CHOLESTEROL (test code = 81014-3) 71 mg/dL(calc) CHOL/HDLC RATIO (test code = 9830-1) 2.3 (calc) NON HDL CHOLESTEROL (test co de = 42123-1) 87 mg/dL(calc) Alexx MendozaCOMPREHENSIVE METABOLIC [id number] 00:00:00* Test Item Value Reference Range Interpretation Comme nts GLUCOSE (test code = 2345-7) 77 mg/dL UREA NITROGEN (BUN) (test code = 3094-0) 11 mg/dL CREATININE (test code = 2160-0) 1.02 mg/dL EGFR (test code = 89618-1) 66 mL/min/1.73m2 BUN/CREATININE RATIO (test code = 3097-3) SEE NOTE: (calc) SODIUM (test code = 2951-2) 136 mmol/L POTASSIUM (test code = 2823-3) 4.2 mmol/L CHLORIDE (test code = 2075-0) 104 mmol/L CARBON DIOXIDE (test code = 2027-9) 22 mmol/L CALCIUM (test code = 04885-1) 9.2 mg/dL PROTEIN, TOTAL (test code = 2885-2) 7.5 g/dL ALBUMIN (test code = 1751-7) 4.1 g/dL GLOBULIN (test code = 32402-4) 3.4 g/dL(calc) ALBUMIN/GLOBULIN RATIO (test code = 1759-0) 1.2 (calc) BILIRUBIN, TOTAL (test code = 1974-2) 0.5 mg/dL ALKALINE PHOSPHATASE (test code = 6768-6) 65 U/L AST (test code = 1920-8) 19 U/L ALT (test code = 1742-6) 16 U/L Alexx [id number] 00:00:00* Test Item Value Reference Range Interpretation [...] cells/uL ABSOLUTE BAND NEUTROPHILS (test code = 37886-3) DNR cells/uL ABSOLUTE METAMYELOCYTES (christina t code = 02875-0) DNR cells/uL ABSOLUTE MYELOCYTES (test code = 66007-2) DNR cells/uL ABSOLUTE PROMYELOCYTES (test code = 61287-6) DNR cells/uL ABSOLUTE LYMPHOCYTES (test code = 731-0) 1940 cells/uL ABSOLUTE MONOCYTES (test cod e = 742-7) 950 cells/uL ABSOLUTE EOSINOPHILS (test code = 711-2) 129 cells/uL ABSOLUTE BASOPHILS (test cod e = 704-7) 50 cells/uL ABSOLUTE BLASTS (test code = 53220-7) DNR cells/uL ABSOLUTE NUCLEATED RBC (test code = 28428-9) DNR cells/uL NEUTROPHILS (test code = 770-8) 69 % BAND NEUTROPHILS (test code = 764-1) DNR % METAMYELOCYTES (test code = 740-1) DNR % MYELOCYTES (test code = 749-2) DNR % PROMYELOCYTES (test code = 783-1) DNR % LYMPHOCYTES (test code = 736-9) 19.6 % REACTIVE LYMPHOCYTES (test code = 49088-3) DNR % MONOCYTES (test code = 5905-5) 9.6 % EOSINOPHILS (test code = 713-8) 1.3 % BASOPHILS (test code = 706-2) 0.5 % BLASTS (test code = 709-6) DNR % NUCLEATED RBC (test code = 15885-8) DNR /100WBC COMMENT(S) (test code = 8251-1) DNR Alexx Soliman RejiLIPID PANEL (REFL)2023-08-18 00:00:00* Test Item Value Reference Range Interpretation Comme nts CHOLESTEROL, TOTAL (test cod e = 2093-3) 153 mg/dL HDL CHOLESTEROL (test code = 2085-9) 66 mg/dL TRIGLYCERIDES (test code = 2571-8) 79 mg/dL LDL-CHOLESTEROL (test code = 12823-9) 71 mg/dL(calc) CHOL/HDLC RATIO (test code = 9830-1) 2.3 (calc) NON HDL CHOLESTEROL (test co de = 61339-4) 87 mg/dL(calc) Alexx MendozaCOMPREHENSIVE METABOLIC [id number] 00:00:00* Test Item Value Reference Range Interpretation Comme nts GLUCOSE (test code = 2345-7) 77 mg/dL UREA NITROGEN (BUN) (test code = 3094-0) 11 mg/dL CREATININE (test code = 2160-0) 1.02 mg/dL EGFR (test code = 26187-7) 66 mL/min/1.73m2 BUN/CREATININE RATIO (test code = 3097-3) SEE NOTE: (calc) SODIUM (test code = 2951-2) 136 mmol/L POTASSIUM (test code = 2823-3) 4.2 mmol/L CHLORIDE (test code = 2075-0) 104 mmol/L CARBON DIOXIDE (test code = 2027-9) 22 mmol/L CALCIUM (test code = 77981-4) 9.2 mg/dL PROTEIN, TOTAL (test code = 2885-2) 7.5 g/dL ALBUMIN (test code = 1751-7) 4.1 g/dL GLOBULIN (test code = 44874-6) 3.4 g/dL(calc) ALBUMIN/GLOBULIN RATIO (test code = 1759-0) 1.2 (calc) BILIRUBIN, TOTAL (test code = 1975-2) 0.5 mg/dL ALKALINE PHOSPHATASE (test code = 6768-6) 65 U/L AST (test code = 1920-8) 19 U/L ALT (test code = 1742-6) 16 U/L Alexx [id number] 00:00:00* Test Item Value Reference Range Interpretation [...] cells/uL ABSOLUTE BAND NEUTROPHILS (test code = 35043-9) DNR cells/uL ABSOLUTE METAMYELOCYTES (christina t code = 82102-4) DNR cells/uL ABSOLUTE MYELOCYTES (test code = 77447-3) DNR cells/uL ABSOLUTE PROMYELOCYTES (test code = 41421-9) DNR cells/uL ABSOLUTE LYMPHOCYTES (test code = 731-0) 1940 cells/uL ABSOLUTE MONOCYTES (test cod e = 742-7) 950 cells/uL ABSOLUTE EOSINOPHILS (test code = 711-2) 129 cells/uL ABSOLUTE BASOPHILS (test cod e = 704-7) 50 cells/uL ABSOLUTE BLASTS (test code = 08890-9) DNR cells/uL ABSOLUTE NUCLEATED RBC (test code = 42067-4) DNR cells/uL NEUTROPHILS (test code = 770-8) 69 % BAND NEUTROPHILS (test code = 764-1) DNR % METAMYELOCYTES (test code = 740-1) DNR % MYELOCYTES (test code = 749-2) DNR % PROMYELOCYTES (test code = 783-1) DNR % LYMPHOCYTES (test code = 736-9) 19.6 % REACTIVE LYMPHOCYTES (test code = 59585-2) DNR % MONOCYTES (test code = 5905-5) 9.6 % EOSINOPHILS (test code = 713-8) 1.3 % BASOPHILS (test code = 706-2) 0.5 % BLASTS (test code = 709-6) DNR % NUCLEATED RBC (test code = 16149-5) DNR /100WBC COMMENT(S) (test code = 8251-1) DNR Alexx F AustinLIPID PANEL (REFL)2023-08-18 00:00:00* Test Item Value Reference Range Interpretation Comme nts CHOLESTEROL, TOTAL (test cod e = 2093-3) 153 mg/dL HDL CHOLESTEROL (test code = 2085-9) 66 mg/dL TRIGLYCERIDES (test code = 2571-8) 79 mg/dL LDL-CHOLESTEROL (test code = 99502-3) 71 mg/dL(calc) CHOL/HDLC RATIO (test code = 9830-1) 2.3 (calc) NON HDL CHOLESTEROL (test co de = 28286-9) 87 mg/dL(calc) Alexx Soliman RejiCOMPREHENSIVE METABOLIC [id number] 00:00:00* Test Item Value Reference Range Interpretation Comme nts GLUCOSE (test code = 2345-7) 77 mg/dL UREA NITROGEN (BUN) (test code = 3094-0) 11 mg/dL CREATININE (test code = 2160-0) 1.02 mg/dL EGFR (test code = 37903-3) 66 mL/min/1.73m2 BUN/CREATININE RATIO (test code = 3097-3) SEE NOTE: (calc) SODIUM (test code = 2951-2) 136 mmol/L POTASSIUM (test code = 2823-3) 4.2 mmol/L CHLORIDE (test code = 2075-0) 104 mmol/L CARBON DIOXIDE (test code = 2027-9) 22 mmol/L CALCIUM (test code = 67203-6) 9.2 mg/dL PROTEIN, TOTAL (test code = 2885-2) 7.5 g/dL ALBUMIN (test code = 1751-7) 4.1 g/dL GLOBULIN (test code = 68124-8) 3.4 g/dL(calc) ALBUMIN/GLOBULIN RATIO (test code = 1759-0) 1.2 (calc) BILIRUBIN, TOTAL (test code = 1975-2) 0.5 mg/dL ALKALINE PHOSPHATASE (test code = 6768-6) 65 U/L AST (test code = 1920-8) 19 U/L ALT (test code = 1742-6) 16 U/L Alexx [id number] 00:00:00* Test Item Value Reference Range Interpretation [...] cells/uL ABSOLUTE BAND NEUTROPHILS (test code = 36784-1) DNR cells/uL ABSOLUTE METAMYELOCYTES (christina t code = 86846-6) DNR cells/uL ABSOLUTE MYELOCYTES (test code = 33851-1) DNR cells/uL ABSOLUTE PROMYELOCYTES (test code = 30786-8) DNR cells/uL ABSOLUTE LYMPHOCYTES (test code = 731-0) 1940 cells/uL ABSOLUTE MONOCYTES (test cod e = 742-7) 950 cells/uL ABSOLUTE EOSINOPHILS (test code = 711-2) 129 cells/uL ABSOLUTE BASOPHILS (test cod e = 704-7) 50 cells/uL ABSOLUTE BLASTS (test code = 69744-5) DNR cells/uL ABSOLUTE NUCLEATED RBC (test code = 18091-6) DNR cells/uL NEUTROPHILS (test code = 770-8) 69 % BAND NEUTROPHILS (test code = 764-1) DNR % METAMYELOCYTES (test code = 740-1) DNR % MYELOCYTES (test code = 749-2) DNR % PROMYELOCYTES (test code = 783-1) DNR % LYMPHOCYTES (test code = 736-9) 19.6 % REACTIVE LYMPHOCYTES (test code = 56941-9) DNR % MONOCYTES (test code = 5905-5) 9.6 % EOSINOPHILS (test code = 713-8) 1.3 % BASOPHILS (test code = 706-2) 0.5 % BLASTS (test code = 709-6) DNR % NUCLEATED RBC (test code = 35442-7) DNR /100WBC COMMENT(S) (test code = 8251-1) DNR Alexx Janny MendozaLIPID PANEL (REFL)2023-08-18 00:00:00* Test Item Value Reference Range Interpretation Comme nts CHOLESTEROL, TOTAL (test cod e = 2093-3) 153 mg/dL HDL CHOLESTEROL (test code = 2085-9) 66 mg/dL TRIGLYCERIDES (test code = 2571-8) 79 mg/dL LDL-CHOLESTEROL (test code = 14887-0) 71 mg/dL(calc) CHOL/HDLC RATIO (test code = 9830-1) 2.3 (calc) NON HDL CHOLESTEROL (test co de = 53183-7) 87 mg/dL(calc) Alexx MendozaCOMPREHENSIVE METABOLIC [id number] 00:00:00* Test Item Value Reference Range Interpretation Comme nts GLUCOSE (test code = 2345-7) 77 mg/dL UREA NITROGEN (BUN) (test code = 3094-0) 11 mg/dL CREATININE (test code = 2160-0) 1.02 mg/dL EGFR (test code = 21697-7) 66 mL/min/1.73m2 BUN/CREATININE RATIO (test code = 3097-3) SEE NOTE: (calc) SODIUM (test code = 2951-2) 136 mmol/L POTASSIUM (test code = 2823-3) 4.2 mmol/L CHLORIDE (test code = 2075-0) 104 mmol/L CARBON DIOXIDE (test code = 2027-9) 22 mmol/L CALCIUM (test code = 97199-0) 9.2 mg/dL PROTEIN, TOTAL (test code = 2885-2) 7.5 g/dL ALBUMIN (test code = 1751-7) 4.1 g/dL GLOBULIN (test code = 88805-6) 3.4 g/dL(calc) ALBUMIN/GLOBULIN RATIO (test code = 1759-0) 1.2 (calc) BILIRUBIN, TOTAL (test code = 1975-2) 0.5 mg/dL ALKALINE PHOSPHATASE (test code = 6768-6) 65 U/L AST (test code = 1920-8) 19 U/L ALT (test code = 1742-6) 16 U/L Alexx [id number] 00:00:00* Test Item Value Reference Range Interpretation Comme [facility] TSH (test code = 3016-3) 1.13 mIU/L Alexx MendozaCBC (INCLUDES DIFF/PLT)2023-08-18 00:00:00* Test Item Value Reference Range Interpretation Comme chele WHITE BLOOD CELL COUNT (test code = [...] cells/uL ABSOLUTE BAND NEUTROPHILS (test code = 09100-0) DNR cells/uL ABSOLUTE METAMYELOCYTES (christina t code = 49740-4) DNR cells/uL ABSOLUTE MYELOCYTES (test code = 90715-7) DNR cells/uL ABSOLUTE PROMYELOCYTES (test code = 13206-6) DNR cells/uL ABSOLUTE LYMPHOCYTES (test code = 731-0) 1940 cells/uL ABSOLUTE MONOCYTES (test cod e = 742-7) 950 cells/uL ABSOLUTE EOSINOPHILS (test code = 711-2) 129 cells/uL ABSOLUTE BASOPHILS (test cod e = 704-7) 50 cells/uL ABSOLUTE BLASTS (test code = 31654-2) DNR cells/uL ABSOLUTE NUCLEATED RBC (test code = 70452-0) DNR cells/uL NEUTROPHILS (test code = 770-8) 69 % BAND NEUTROPHILS (test code = 764-1) DNR % METAMYELOCYTES (test code = 740-1) DNR % MYELOCYTES (test code = 749-2) DNR % PROMYELOCYTES (test code = 783-1) DNR % LYMPHOCYTES (test code = 736-9) 19.6 % REACTIVE LYMPHOCYTES (test code = 97989-3) DNR % MONOCYTES (test code = 5905-5) 9.6 % EOSINOPHILS (test code = 713-8) 1.3 % BASOPHILS (test code = 706-2) 0.5 % BLASTS (test code = 709-6) DNR % NUCLEATED RBC (test code = 07751-9) DNR /100WBC COMMENT(S) (test code = 8251-1) DNR Alexx MendozaLIPID PANEL (REFL)2023-08-18 00:00:00* Test Item Value Reference Range Interpretation Comme nts CHOLESTEROL, TOTAL (test cod e = 2093-3) 153 mg/dL HDL CHOLESTEROL (test code = 2085-9) 66 mg/dL TRIGLYCERIDES (test code = 2571-8) 79 mg/dL LDL-CHOLESTEROL (test code = 18231-6) 71 mg/dL(calc) CHOL/HDLC RATIO (test code = 9830-1) 2.3 (calc) NON HDL CHOLESTEROL (test co de = 98764-7) 87 mg/dL(calc) Alexx MendozaCOMPREHENSIVE METABOLIC [id number] 00:00:00* Test Item Value Reference Range Interpretation Comme nts GLUCOSE (test code = 2345-7) 77 mg/dL UREA NITROGEN (BUN) (test code = 3094-0) 11 mg/dL CREATININE (test code = 2160-0) 1.02 mg/dL EGFR (test code = 70241-6) 66 mL/min/1.73m2 BUN/CREATININE RATIO (test code = 3097-3) SEE NOTE: (calc) SODIUM (test code = 2951-2) 136 mmol/L POTASSIUM (test code = 2823-3) 4.2 mmol/L CHLORIDE (test code = 2075-0) 104 mmol/L CARBON DIOXIDE (test code = 2027-9) 22 mmol/L CALCIUM (test code = 78787-7) 9.2 mg/dL PROTEIN, TOTAL (test code = 2885-2) 7.5 g/dL ALBUMIN (test code = 1751-7) 4.1 g/dL GLOBULIN (test code = 94684-0) 3.4 g/dL(calc) ALBUMIN/GLOBULIN RATIO (test code = 1759-0) 1.2 (calc) BILIRUBIN, TOTAL (test code = 1975-2) 0.5 mg/dL ALKALINE PHOSPHATASE (test code = 6768-6) 65 U/L AST (test code = 1920-8) 19 U/L ALT (test code = 1742-6) 16 U/L Alexx [id number] 00:00:00* Test Item Value Reference Range Interpretation [...] cells/uL ABSOLUTE BAND NEUTROPHILS (test code = 61679-9) DNR cells/uL ABSOLUTE METAMYELOCYTES (christina t code = 02260-6) DNR cells/uL ABSOLUTE MYELOCYTES (test code = 35678-4) DNR cells/uL ABSOLUTE PROMYELOCYTES (test code = 55768-8) DNR cells/uL ABSOLUTE LYMPHOCYTES (test code = 731-0) 1940 cells/uL ABSOLUTE MONOCYTES (test cod e = 742-7) 950 cells/uL ABSOLUTE EOSINOPHILS (test code = 711-2) 129 cells/uL ABSOLUTE BASOPHILS (test cod e = 704-7) 50 cells/uL ABSOLUTE BLASTS (test code = 70613-0) DNR cells/uL ABSOLUTE NUCLEATED RBC (test code = 82851-7) DNR cells/uL NEUTROPHILS (test code = 770-8) 69 % BAND NEUTROPHILS (test code = 764-1) DNR % METAMYELOCYTES (test code = 740-1) DNR % MYELOCYTES (test code = 749-2) DNR % PROMYELOCYTES (test code = 783-1) DNR % LYMPHOCYTES (test code = 736-9) 19.6 % REACTIVE LYMPHOCYTES (test code = 69887-7) DNR % MONOCYTES (test code = 5905-5) 9.6 % EOSINOPHILS (test code = 713-8) 1.3 % BASOPHILS (test code = 706-2) 0.5 % BLASTS (test code = 709-6) DNR % NUCLEATED RBC (test code = 15325-9) DNR /100WBC COMMENT(S) (test code = 8251-1) DNR Alexx F AustinLIPID PANEL (REFL)2023-08-18 00:00:00* Test Item Value Reference Range Interpretation Comme nts CHOLESTEROL, TOTAL (test cod e = 2093-3) 153 mg/dL HDL CHOLESTEROL (test code = 2085-9) 66 mg/dL TRIGLYCERIDES (test code = 2571-8) 79 mg/dL LDL-CHOLESTEROL (test code = 26669-0) 71 mg/dL(calc) CHOL/HDLC RATIO (test code = 9830-1) 2.3 (calc) NON HDL CHOLESTEROL (test co de = 25924-5) 87 mg/dL(calc) Alexx MendozaCOMPREHENSIVE METABOLIC [id number] 00:00:00* Test Item Value Reference Range Interpretation Comme nts GLUCOSE (test code = 2345-7) 77 mg/dL UREA NITROGEN (BUN) (test code = 3094-0) 11 mg/dL CREATININE (test code = 2160-0) 1.02 mg/dL EGFR (test code = 77396-3) 66 mL/min/1.73m2 BUN/CREATININE RATIO (test code = 3097-3) SEE NOTE: (calc) SODIUM (test code = 2951-2) 136 mmol/L POTASSIUM (test code = 2823-3) 4.2 mmol/L CHLORIDE (test code = 2075-0) 104 mmol/L CARBON DIOXIDE (test code = 8-9) 22 mmol/L CALCIUM (test code = 24094-0) 9.2 mg/dL PROTEIN, TOTAL (test code = 2885-2) 7.5 g/dL ALBUMIN (test code = 1751-7) 4.1 g/dL GLOBULIN (test code = 47222-0) 3.4 g/dL(calc) ALBUMIN/GLOBULIN RATIO (test code = 1759-0) 1.2 (calc) BILIRUBIN, TOTAL (test code = 1975-2) 0.5 mg/dL ALKALINE PHOSPHATASE (test code = 6768-6) 65 U/L AST (test code = 1920-8) 19 U/L ALT (test code = 1742-6) 16 U/L Alexx [id number] 00:00:00* Test Item Value Reference Range Interpretation Comme nts TSH (test code = 3016-3) 1.13 mIU/L Alexx MendozaOCCULT BLD,FECAL,IMMUNOASSAY [id number] 09:56:34* Test Item Value Reference Range Interpretation Comme nts OCCULT BLD, FECAL (test code = 26349) NEGATIVE NEGATIVE UNLESS OTHER DELGADO INDICATED, ALL TESTING PERFORMED ATCLINICAL PATHOLOGY [employer] [address] [place] [id number] [employer]EEPING [employer] OPERATOR: SKYLER SAUER M.D. CLIA NUMBER [id number] [place]. [id number] OCCULT BLD,FECAL,IMMUNOASSAY [id number] 00:00:00* Test Item Value Reference Range Interpretation Comme nts OCCULT BLD, FECAL (test code = 71772) NEGATIVE Alexx F AustinOCCULT BLD,FECAL,IMMUNOASSAY [id number] 00:00:00* Test Item Value Reference Range Interpretation Comme nts OCCULT BLD, FECAL (test code = 70749) NEGATIVE Alexx F AustinOCCULT BLD,FECAL,IMMUNOASSAY [id number] 00:00:00* Test Item Value Reference Range Interpretation Comme nts OCCULT BLD, FECAL (test code = 22485) NEGATIVE Alexx F AustinOCCULT BLD,FECAL,IMMUNOASSAY [id number] 00:00:00* Test Item Value Reference Range Interpretation Comme nts OCCULT BLD, FECAL (test code = 03230) NEGATIVE Alexx F AustinOCCULT BLD,FECAL,IMMUNOASSAY [id number] 00:00:00* Test Item Value Reference Range Interpretation Comme nts OCCULT BLD, FECAL (test code = 56783) NEGATIVE Alexx F AustinOCCULT BLD,FECAL,IMMUNOASSAY [id number] 00:00:00* Test Item Value Reference Range Interpretation Comme nts OCCULT BLD, FECAL (test code = 98253) NEGATIVE Alexx F AustinOCCULT BLD,FECAL,IMMUNOASSAY [id number] 00:00:00* Test Item Value Reference Range Interpretation Comme nts OCCULT BLD, FECAL (test code = 24224) NEGATIVE Alexx F AustinOCCULT BLD,FECAL,IMMUNOASSAY [id number] 00:00:00* Test Item Value Reference Range Interpretation Comme nts OCCULT BLD, FECAL (test code = 97403) NEGATIVE Alexx F AustinOCCULT BLD,FECAL,IMMUNOASSAY [id number] 00:00:00* Test Item Value Reference Range Interpretation Comme nts OCCULT BLD, FECAL (test code = 02105) NEGATIVE Alexx F AustinOCCULT BLD,FECAL,IMMUNOASSAY [id number] 00:00:00* Test Item Value Reference Range Interpretation Comme nts OCCULT BLD, FECAL (test code = 77587) NEGATIVE Alexx F AustinOCCULT BLD,FECAL,IMMUNOASSAY [id number] 00:00:00* Test Item Value Reference Range Interpretation Comme nts OCCULT BLD, FECAL (test code = 71004) NEGATIVE Alexx F AustinOCCULT BLD,FECAL,IMMUNOASSAY [id number] 00:00:00* Test Item Value Reference Range Interpretation Comme nts OCCULT BLD, FECAL (test code = 96630) NEGATIVE Alexx F AustinOCCULT BLD,FECAL,IMMUNOASSAY [id number] 00:00:00* Test Item Value Reference Range Interpretation Comme nts OCCULT BLD, FECAL (test code = 91248) NEGATIVE Alexx F AustinOCCULT BLD,FECAL,IMMUNOASSAY [id number] 00:00:00* Test Item Value Reference Range Interpretation Comme nts OCCULT BLD, FECAL (test code = 88768) NEGATIVE Alexx F AustinOCCULT BLD,FECAL,IMMUNOASSAY [id number] 00:00:00* Test Item Value Reference Range Interpretation Comme nts OCCULT BLD, FECAL (test code = 93029) NEGATIVE Alexx F AustinOCCULT BLD,FECAL,IMMUNOASSAY [id number] 00:00:00* Test Item Value Reference Range Interpretation Comme nts OCCULT BLD, FECAL (test code = 61955) NEGATIVE Alexx F AustinOCCULT BLD,FECAL,IMMUNOASSAY [id number] 00:00:00* Test Item Value Reference Range Interpretation Comme nts OCCULT BLD, FECAL (test code = 52362) NEGATIVE Alexx F AustinOCCULT BLD,FECAL,IMMUNOASSAY [id number] 00:00:00* Test Item Value Reference Range Interpretation Comme nts OCCULT BLD, FECAL (test code = 99466) NEGATIVE Alexx F AustinOCCULT BLD,FECAL,IMMUNOASSAY [id number] 00:00:00* Test Item Value Reference Range Interpretation Comme nts OCCULT BLD, FECAL (test code = 70045) NEGATIVE LIPID [id number] 03:01:05* Test Item Value Reference Range Interpretation Comme nts CHOLESTEROL (test code = 2210) 252 MG/DL <200 H TRIGLYCERIDES (test code = 2232) 131 MG/DL <150 HDL CHOLESTEROL (test code = 2220) 57 MG/DL >39 CALC LDL CHOL (test code = 2236) 168 MG/DL <100 H NOTE: CALCULATED LDL IS BASED ON JIMBO-RICHARDS METHOD WHICHINCLUDES ADJUSTABLE TRIGLYCERIDE:VLDL CHOLESTEROL RATIO.THIS FACTOR VARIES BY MEASURED TRIGLYCERIDE AND NON-HDLCHOLESTEROL CONCENTRATIONS WITH INCREASED CALCULATED LDL SEENIN HIGHER TRIGLYCERIDE OR LOWER NON-HDL SPECIMENS. FOR MOREINFORMATION, SEE CLIENT ANNOUNCEMENT AT [email or web address] RISK RATIO LDL/HDL (test code = 2237) 2.95 RATIO <3.22 COMPREHENSIVE METABOLIC [id number] 03:01:05* Test Item Value Reference Range Interpretation Comme nts GLUCOSE (test code = 2216) 101 MG/DL 70-99 H BUN (test code = 2207) 14 MG/DL 6-20 CREATININE (test code = 221) 0.97 MG/DL 0.60-1.30 eGFR (2020 CKD-EPI) (test code = 88553) 71 ML/MIN/1.73 >60 CALC BUN/CREAT (test code [...] as normal/abnormal. ALKALINE PHOSPHATASE (test code = 4) 79 U/L 40-130 AST (test code = 2218) 22 U/L 9-40 ALT (test code = 2219) 19 U/L 5-40 UNLESS OTHERWISE INDICATED, ALL TESTING PERFORMED [facility] [address] [facility] [place] [address] [employer]EEPING PRESS OPERATOR: SKYLER SAUER M.D. CLIA NUMBER [id number] [facility] [place]. [id number] HEMOGLOBIN [id number] 02:02:40* Test Item Value Reference Range Interpretation Comme nts HEMOGLOBIN A1c (test code = 34329) 5.7 % 4.2-5.6 H HEMOGLOBIN [id number] 00:00:00* Test Item Value Reference Range Interpretation Comme nts HEMOGLOBIN A1c (test code = 65212) 5.8 % Alexx F AustinHEMOGLOBIN [id number] 00:00:00* Test Item Value Reference Range Interpretation Comme nts HEMOGLOBIN A1c (test code = 74433) 5.8 % Alexx F AustinHEMOGLOBIN [id number] 00:00:00* Test Item Value Reference Range Interpretation Comme nts HEMOGLOBIN A1c (test code = 64789) 5.8 % Alexx F AustinHEMOGLOBIN [id number] 00:00:00* Test Item Value Reference Range Interpretation Comme nts HEMOGLOBIN A1c (test code = 01305) 5.8 % Alexx F AustinHEMOGLOBIN [id number] 00:00:00* Test Item Value Reference Range Interpretation Comme nts HEMOGLOBIN A1c (test code = 33158) 5.8 % Alexx F AustinHEMOGLOBIN [id number] 00:00:00* Test Item Value Reference Range Interpretation Comme nts HEMOGLOBIN A1c (test code = 09531) 5.8 % Alexx F AustinHEMOGLOBIN [id number] 00:00:00* Test Item Value Reference Range Interpretation Comme nts HEMOGLOBIN A1c (test code = 83826) 5.8 % Alexx F AustinHEMOGLOBIN [id number] 00:00:00* Test Item Value Reference Range Interpretation Comme nts HEMOGLOBIN A1c (test code = 78026) 5.8 % Alexx F AustinHEMOGLOBIN [id number] 00:00:00* Test Item Value Reference Range Interpretation Comme nts HEMOGLOBIN A1c (test code = 36634) 5.8 % Alexx F AustinHEMOGLOBIN [id number] 00:00:00* Test Item Value Reference Range Interpretation Comme nts HEMOGLOBIN A1c (test code = 82915) 5.8 % Alexx Soliman AustinHEMOGLOBIN [id number] 00:00:00* Test Item Value Reference Range Interpretation Comme nts HEMOGLOBIN A1c (test code = 57795) 5.8 % Alexx Soliman AustinHEMOGLOBIN [id number] 00:00:00* Test Item Value Reference Range Interpretation Comme nts HEMOGLOBIN A1c (test code = 52689) 5.8 % Alexx Soliman AustinHEMOGLOBIN [id number] 00:00:00* Test Item Value Reference Range Interpretation Comme nts HEMOGLOBIN A1c (test code = 16097) 5.8 % Alexx Soliman AustinHEMOGLOBIN [id number] 00:00:00* Test Item Value Reference Range Interpretation Comme nts HEMOGLOBIN A1c (test code = 37721) 5.8 % Alexx Soliman AustinHEMOGLOBIN [id number] 00:00:00* Test Item Value Reference Range Interpretation Comme nts HEMOGLOBIN A1c (test code = 03066) 5.8 % Alexx Soliman AustinHEMOGLOBIN [id number] 00:00:00* Test Item Value Reference Range Interpretation Comme nts HEMOGLOBIN A1c (test code = 20932) 5.8 % Alexx Soliman AustinHEMOGLOBIN [id number] 00:00:00* Test Item Value Reference Range Interpretation Comme nts HEMOGLOBIN A1c (test code = 66624) 5.8 % Alexx Soliman AustinHEMOGLOBIN [id number] 00:00:00* Test Item Value Reference Range Interpretation Comme nts HEMOGLOBIN A1c (test code = 39748) 5.8 % Alexx Soliman AustinHEMOGLOBIN [id number] 00:00:00* Test Item Value Reference Range Interpretation Comme nts HEMOGLOBIN A1c (test code = 73318) 5.8 % HEMOGLOBIN [id number] 00:00:00* Test Item Value Reference Range Interpretation Comme nts HEMOGLOBIN A1c (test code = 35106) 5.8 % HEMOGLOBIN [id number] 00:00:00* Test Item Value Reference Range Interpretation Comme nts HEMOGLOBIN A1c (test code = 02900) 5.8 % HEMOGLOBIN [id number] 00:00:00* Test Item Value Reference Range Interpretation Comme nts HEMOGLOBIN A1c (test code = 00826) 5.8 % HEMOGLOBIN [id number] 00:00:00* Test Item Value Reference Range Interpretation Comme nts HEMOGLOBIN A1c (test code = 98589) 5.8 % HEMOGLOBIN [id number] 00:00:00* Test Item Value Reference Range Interpretation Comme nts HEMOGLOBIN A1c (test code = 82618) 5.8 % HEMOGLOBIN [id number] 00:00:00* Test Item Value Reference Range Interpretation Comme nts HEMOGLOBIN A1c (test code = 48190) 5.7 % Alexx Soliman AustinLIPID [id number] 00:00:00* Test Item Value Reference Range Interpretation Comme nts CHOLESTEROL (test code = 2210) 119 MG/DL TRIGLYCERIDES (test code = 2232) 140 MG/DL HDL CHOLESTEROL (test code = 2220) 49 MG/DL CALC LDL CHOL (test code = 2237) 48 MG/DL RISK RATIO LDL/HDL (test cod e = 2238) 0.98 RATIO Alexx MendozaCOMPREHENSIVE METABOLIC [id number] 00:00:00* Test Item Value Reference Range Interpretation Comme nts GLUCOSE (test code = 2217) 101 MG/DL BUN (test code = 2208) 18 MG/DL CREATININE (test code = 2214) 0.88 MG/DL eGFR AMER. (test cod e = 20842) 89 ML/MIN/1.73 eGFR NON- AMER. (test code = 35607) 77 ML/MIN/1.73 CALC BUN/CREAT (test code = [...] (test code = 2219) 28 U/L [facility] + FREE T4 [id number] 00:00:00* Test Item Value Reference Range Interpretation Comme nts TSH, THIRD GENERATION (test code = 2821) 1.110 UIU/ML FREE T4 (THYROXINE) (test co de = 2823) 0.83 NG/DL Alexx MendozaHEMOGLOBIN [id number] 00:00:00* Test Item Value Reference Range Interpretation Comme nts HEMOGLOBIN A1c (test code = 44480) 5.7 % Alexx eMndozaLIPID [id number] 00:00:00* Test Item Value Reference Range Interpretation Comme nts CHOLESTEROL (test code = 2210) 119 MG/DL TRIGLYCERIDES (test code = 2232) 140 MG/DL HDL CHOLESTEROL (test code = 2220) 49 MG/DL CALC LDL CHOL (test code = 2237) 48 MG/DL RISK RATIO LDL/HDL (test cod e = 2238) 0.98 RATIO Alexx MendozaCOMPREHENSIVE METABOLIC [id number] 00:00:00* Test Item Value Reference Range Interpretation Comme nts GLUCOSE (test code = 2217) 101 MG/DL BUN (test code = 2208) 18 MG/DL CREATININE (test code = 2214) 0.88 MG/DL eGFR AMER. (test cod e = 83239) 89 ML/MIN/1.73 eGFR NON- AMER. (test code = 43627) 77 ML/MIN/1.73 CALC BUN/CREAT (test code = [...] 28 U/L Alexx MendozaTSH + FREE T4 [id number] 00:00:00* Test Item Value Reference Range Interpretation Comme chele TSH, THIRD GENERATION (test code = 2821) 1.110 UIU/ML FREE T4 (THYROXINE) (test co de = 2823) 0.83 NG/DL Alexx MendozaHEMOGLOBIN [id number] 00:00:00* Test Item Value Reference Range Interpretation Comme chele HEMOGLOBIN A1c (test code = 86746) 5.7 % Alexx MendozaLIPID [id number] 00:00:00* Test Item Value Reference Range Interpretation Comme nts CHOLESTEROL (test code = 2210) 119 MG/DL TRIGLYCERIDES (test code = 2232) 140 MG/DL HDL CHOLESTEROL (test code = 2220) 49 MG/DL CALC LDL CHOL (test code = 2237) 48 MG/DL RISK RATIO LDL/HDL (test cod e = 2238) 0.98 RATIO Alexx MendozaCOMPREHENSIVE METABOLIC [id number] 00:00:00* Test Item Value Reference Range Interpretation Comme nts GLUCOSE (test code = 2217) 101 MG/DL BUN (test code = 2208) 18 MG/DL CREATININE (test code = 2214) 0.88 MG/DL eGFR AMER. (test cod e = 75378) 89 ML/MIN/1.73 eGFR NON- AMER. (test code = 09432) 77 ML/MIN/1.73 CALC BUN/CREAT (test code = [...] 28 U/L Alexx MendozaTSH + FREE T4 [id number] 00:00:00* Test Item Value Reference Range Interpretation Comme chele TSH, THIRD GENERATION (test code = 2821) 1.110 UIU/ML FREE T4 (THYROXINE) (test co de = 2823) 0.83 NG/DL Alexx MendozaHEMOGLOBIN [id number] 00:00:00* Test Item Value Reference Range Interpretation Comme nts HEMOGLOBIN A1c (test code = 33319) 5.7 % Alexx MendozaHEMOGLOBIN [id number] 00:00:00* Test Item Value Reference Range Interpretation Comme chele HEMOGLOBIN A1c (test code = 93271) 5.7 % Alexx MendozaLIPID [id number] 00:00:00* Test Item Value Reference Range Interpretation Comme nts CHOLESTEROL (test code = 2210) 119 MG/DL TRIGLYCERIDES (test code = 2232) 140 MG/DL HDL CHOLESTEROL (test code = 2220) 49 MG/DL CALC LDL CHOL (test code = 2237) 48 MG/DL RISK RATIO LDL/HDL (test cod e = 2238) 0.98 RATIO Alexx MendozaCOMPREHENSIVE METABOLIC [id number] 00:00:00* Test Item Value Reference Range Interpretation Comme nts GLUCOSE (test code = 2217) 101 MG/DL BUN (test code = 2208) 18 MG/DL CREATININE (test code = 2214) 0.88 MG/DL eGFR AMER. (test cod e = 91130) 89 ML/MIN/1.73 eGFR NON- AMER. (test code = 27314) 77 ML/MIN/1.73 CALC BUN/CREAT (test code = [...] 28 U/L Alexx MendozaTSH + FREE T4 [id number] 00:00:00* Test Item Value Reference Range Interpretation Comme nts TSH, THIRD GENERATION (test code = 2821) 1.110 UIU/ML FREE T4 (THYROXINE) (test co de = 2823) 0.83 NG/DL Alexx MendozaLIPID [id number] 00:00:00* Test Item Value Reference Range Interpretation Comme nts CHOLESTEROL (test code = 2210) 119 MG/DL TRIGLYCERIDES (test code = 2232) 140 MG/DL HDL CHOLESTEROL (test code = 2220) 49 MG/DL CALC LDL CHOL (test code = 2237) 48 MG/DL RISK RATIO LDL/HDL (test cod e = 2238) 0.98 RATIO Alexx MendozaCOMPREHENSIVE METABOLIC [id number] 00:00:00* Test Item Value Reference Range Interpretation Comme nts GLUCOSE (test code = 2217) 101 MG/DL BUN (test code = 2208) 18 MG/DL CREATININE (test code = 2214) 0.88 MG/DL eGFR AMER. (test cod e = 00879) 89 ML/MIN/1.73 eGFR NON- AMER. (test code = 59427) 77 ML/MIN/1.73 CALC BUN/CREAT (test code = [...] 28 U/L Alexx MendozaTSH + FREE T4 [id number] 00:00:00* Test Item Value Reference Range Interpretation Comme nts TSH, THIRD GENERATION (test code = 2821) 1.110 UIU/ML FREE T4 (THYROXINE) (test co de = 2823) 0.83 NG/DL Alexx MendozaHEMOGLOBIN [id number] 00:00:00* Test Item Value Reference Range Interpretation Comme nts HEMOGLOBIN A1c (test code = 30253) 5.7 % Alexx MendozaLIPID [id number] 00:00:00* Test Item Value Reference Range Interpretation Comme nts CHOLESTEROL (test code = 2210) 119 MG/DL TRIGLYCERIDES (test code = 2232) 140 MG/DL HDL CHOLESTEROL (test code = 2220) 49 MG/DL CALC LDL CHOL (test code = 2237) 48 MG/DL RISK RATIO LDL/HDL (test cod e = 2238) 0.98 RATIO Alexx MendozaCOMPREHENSIVE METABOLIC [id number] 00:00:00* Test Item Value Reference Range Interpretation Comme nts GLUCOSE (test code = 2217) 101 MG/DL BUN (test code = 2208) 18 MG/DL CREATININE (test code = 2214) 0.88 MG/DL eGFR AMER. (test cod e = 04659) 89 ML/MIN/1.73 eGFR NON- AMER. (test code = 61255) 77 ML/MIN/1.73 CALC BUN/CREAT (test code = [...] 28 U/L Alexx MendozaTSH + FREE T4 [id number] 00:00:00* Test Item Value Reference Range Interpretation Comme nts TSH, THIRD GENERATION (test code = 2821) 1.110 UIU/ML FREE T4 (THYROXINE) (test co de = 2823) 0.83 NG/DL Alexx MendozaHEMOGLOBIN [id number] 00:00:00* Test Item Value Reference Range Interpretation Comme nts HEMOGLOBIN A1c (test code = 75202) 5.7 % Alexx MendozaLIPID [id number] 00:00:00* Test Item Value Reference Range Interpretation Comme nts CHOLESTEROL (test code = 2210) 119 MG/DL TRIGLYCERIDES (test code = 2232) 140 MG/DL HDL CHOLESTEROL (test code = 2220) 49 MG/DL CALC LDL CHOL (test code = 2237) 48 MG/DL RISK RATIO LDL/HDL (test cod e = 2238) 0.98 RATIO Alexx MendozaCOMPREHENSIVE METABOLIC [id number] 00:00:00* Test Item Value Reference Range Interpretation Comme nts GLUCOSE (test code = 2217) 101 MG/DL BUN (test code = 2208) 18 MG/DL CREATININE (test code = 2214) 0.88 MG/DL eGFR AMER. (test cod e = 39365) 89 ML/MIN/1.73 eGFR NON- AMER. (test code = 20998) 77 ML/MIN/1.73 CALC BUN/CREAT (test code = [...] 28 U/L Alexx MendozaTSH + FREE T4 [id number] 00:00:00* Test Item Value Reference Range Interpretation Comme nts TSH, THIRD GENERATION (test code = 2821) 1.110 UIU/ML FREE T4 (THYROXINE) (test co de = 2823) 0.83 NG/DL Alexx MendozaHEMOGLOBIN [id number] 00:00:00* Test Item Value Reference Range Interpretation Comme nts HEMOGLOBIN A1c (test code = 30488) 5.7 % Alexx MendozaLIPID [id number] 00:00:00* Test Item Value Reference Range Interpretation Comme nts CHOLESTEROL (test code = 2210) 119 MG/DL TRIGLYCERIDES (test code = 2232) 140 MG/DL HDL CHOLESTEROL (test code = 2220) 49 MG/DL CALC LDL CHOL (test code = 2237) 48 MG/DL RISK RATIO LDL/HDL (test cod e = 2238) 0.98 RATIO Alexx MendozaCOMPREHENSIVE METABOLIC [id number] 00:00:00* Test Item Value Reference Range Interpretation Comme nts GLUCOSE (test code = 2217) 101 MG/DL BUN (test code = 2208) 18 MG/DL CREATININE (test code = 2214) 0.88 MG/DL eGFR AMER. (test cod e = 38656) 89 ML/MIN/1.73 eGFR NON- AMER. (test code = 03371) 77 ML/MIN/1.73 CALC BUN/CREAT (test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
[2024-11-24] MEDS ORDERED: DIPHENHYDRAMINE 50 MG/ML VIAL ONE (21:14)
[2024-11-24] MEDS ORDERED: METOCLOPRAMIDE 10 MG/2mL INJ ONE (21:14)
[2024-11-24] MEDS ORDERED: KETOROLAC 30 MG/ML INJ ONE (21:14)
[2024-11-24] MEDS ORDERED: FENTANYL CITR 100 MCG/2 ML ONE (21:15)
--- NOTE | 2024-11-24 21:46 | RAD REPORT ---
EXAMINATION: ONE VIEW CHEST XR CLINICAL INDICATION: CHEST PAIN TECHNIQUE: Frontal chest projection is submitted. Examination is limited by patient positioning and t echnique. COMPARISON: 02/01/2020 FINDINGS: The lungs are well inflated and clear. The heart is upper limit of normal in size. No displaced fract ures identified. Left-sided venous catheters tip in SVC. IMPRESSION: No acute intrathoracic abnormalities.
[2024-11-24 21:59] LABS: Absolute Eosinophils 0.1 K/uL (0-0.5); Absolute Lymphocytes (CBC) 2.6 K/uL (0.7-4.9); Absolute Monocytes 0.8 K/uL (0.1-1.3); Absolute Neutrophil 4.2 K/uL (1.8-8.0); Basophils % 0.5 % (0-1.3); Eosinophils % 1.4 % (0-4.4); Hematocrit 34.9 % (36.0-45.0); Hemoglobin 11.6 g/dL (12.0-15.0); Lymphocytes % 33.6 % (15.3-44.8); MCH 30.9 pg (27.0-35.0); MCHC 33.1 g/dL (32.0-36.0); MCV 93.3 fL (80-100); MPV 7.8 fL (7.6-11.3); Monocytes % 9.9 % (3.3-12.3); Neutrophils % 54.6 % (41.7-73.7); Platelets 269 thou/uL (152-406); RBC Red Blood Cell Count 3.74 M/uL (3.86-4.86); Red Cell Distribution Width 13.4 % (12.1-15.2)
[2024-11-24 22:00] LABS: PT Prothrombin Time 12.3 SECONDS (9.4-12.5); Protime INR 1.1
--- NOTE | 2024-11-24 22:03 | RAD REPORT ---
EXAMINATION: MRI BRAIN WITHOUT CONTRAST CLINICAL INDICATION: STROKE ALERT TECHNIQUE: Multiplanar multisequence MR images of the brain were obtained without intravenous contras t. Unless otherwise specified, incidental findings do not require dedicated imaging follow-up. COMPARISON: No prior exam. FINDINGS: INTRACRANIAL: Diffusion-weighted images show no acute or early subacute infarction. No abnormal brain parenchymal signal. The ventricles are normal in size and morphology. No augmented susceptibility. There is no mass effect or midline shift. No abnormal extraaxial fluid collection. VASCULATURE: Normal signal voids in the larger intracranial arteries and dural venous sinuses. SINUSES: The paranasal sinuses and mastoid air cells are predominantly clear. BONE: The marrow signal pattern is within normal limits. IMPRESSION: Negative for acutre CVA or other acute intracranial finding.
[2024-11-24 22:23] LABS: ALT/SGPT 24 U/L (13-56); AST/SGOT 20 U/L (15-37); Albumin 3.4 g/dL (3.4-5.0); Albumin/Globulin Ratio 0.9 (1.1-1.8); Alkaline Phosphatase 51 U/L (45-117); Anion Gap 10.7 mEq/L (5.0-15.0); BUN Blood Urea Nitrogen 27 mg/dL (7-18); Bicarbonate 22 mEq/L (21-32); Bilirubin Total 0.4 mg/dL (0.2-1.0); Glomerular Filtration Rate 64 ml/min (=/>90); Glucose Level 71 mg/dL (74-106); Magnesium 1.9 mg/dL (1.6-2.4); NT PRO-BNP 75 pg/mL (<125); Potassium 3.7 mEq/L (3.5-5.1); Protein, Total 7.4 g/dL (6.4-8.2); Sodium Level 137 mEq/L (136-145); Troponin High Sensitivity 5.9 pg/mL (<58.9)
[2024-11-24 22:26] LABS: Bilirubin Direct < 0.2 mg/dL (0-0.2); Bilirubin Indirect, Calculated 0.2 mg/dL (0.2-0.8); C-Reactive Protein < 2.90 mg/L (<3.00)
--- NOTE | 2024-11-24 22:36 | EDPHYS ---
Physician Documentation [facility] Name: Elizabeth Garcia Age: 54 yrs Sex: Female : 1970 Arrival Date: 11/24/2024 Time: 20:36 Bed 5 Private MD: ED Physician Carrillo Harrington HPI: 11/24 20:50 This 54 yrs old Female presents to ER via Unassigned with complaints of sp4 Headache, Dizziness, Neck Pain, >24Hrs Old. 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 22:37 54-year-old female presents with primary complaint of headache also dizziness neck pain sp4 starting in the morning. Initial arrival code stroke was called. On exam patient has no signs of acute CVA.. 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 - Infectious Disease History:: Denies. - Social history:: Smoking status: Patient denies any tobacco usage or history of. - Family history:: not pertinent. ROS: 22:37 Constitutional: Negative for fever, chills, and weight loss, positive headache and sp4 dizziness, positive pain in the neck 22:37 All other systems are negative, Exam: 22:37 Constitutional: This is a well developed, well nourished patient who is awake, alert, sp4 and in no acute distress. Head/Face: Normocephalic, atraumatic. Eyes: Pupils equal round and reactive to light, extra-ocular motions intact. Lids and lashes normal. Conjunctiva and sclera are not injected. Cornea within normal limits. Periorbital areas with no swelling, redness, or edema. ENT: Nares patent. No nasal discharge, no septal abnormalities noted. Tympanic membranes are normal and external auditory canals are clear. Oropharynx with no redness, swelling, or masses, exudates, or evidence of obstruction, uvula midline. Mucous membranes moist. Neck: Trachea midline, no thyromegaly or masses palpated, and no cervical lymphadenopathy. Supple, full range of motion without nuchal rigidity, or vertebral point tenderness. Chest/axilla: Normal chest wall appearance and motion. Nontender with no deformity. No lesions are appreciated. Cardiovascular: Regular rate and rhythm with a normal S1 and S2. No gallops, murmurs, or rubs. Normal PMI, no JVD. No pulse deficits. Respiratory: Lungs have equal breath sounds bilaterally, clear to auscultation and percussion. No rales, rhonchi or wheezes noted. No increased work of breathing, no retractions or nasal flaring. Abdomen/GI: Soft, with normal bowel sounds. No distension or tympany. No guarding or rebound. No evidence of tenderness throughout. Back: No spinal tenderness. No costovertebral tenderness. Skin: Warm, dry with normal turgor. Normal color with no rashes, no lesions, and no evidence of cellulitis. MS/ Extremity: Pulses equal, no cyanosis. Neurovascular intact. Full, normal range of motion. Neuro: Awake and alert, GCS 15, oriented to person, place, time, and situation. Cranial nerves II-XII grossly intact. Motor strength 5/5 in all extremities. Sensory grossly intact. Psych: Awake, alert, with orientation to person, place and time. Behavior, mood, and affect are within normal limits 22:37 ECG was reviewed by the Attending Physician. EKG at 22 25 sp4 Vital Signs: 21:00 BP 148 / 75; Pulse 60; Resp 16; Temp 98.5(TE); Pulse Ox 100% on R/A; Weight 63.5 kg jb4 (R); Height 5 ft. 0 in. (R); 21:27 BP 131 / 63; Pulse 55; Resp 16; Pulse Ox 99% on R/A; dd2 23:44 BP 128 / 79; Pulse 62; Resp 16; Temp 98.3; Pulse Ox 98% on R/A; dd2 21:00 Body Mass Index 27.34 (63.50 kg, 152.4 cm) jb4 NIH Stroke Scale Scores: 21:07 NIHSS Score: 1 jb4 21:22 NIHSS Score: 0 dd2 21:30 NIHSS Score: 0 sp4 Mather Coma Score: 21:22 Eye Response: spontaneous(4). Motor Response: obeys commands(6). Verbal Response: dd2 oriented(5). Total: 15. 21:30 Eye Response: spontaneous(4). Motor Response: obeys commands(6). Verbal Response: sp4 oriented(5). Total: 15. 22:25 Eye Response: spontaneous(4). Motor Response: obeys commands(6). Verbal Response: sp4 oriented(5). Total: 15. MDM: 20:52 Medical Screening Exam initiated sp4 22:25 Differential diagnosis: cluster headache, epidural hematoma, hypoglycemia, sp4 hyponatremia, migraine, tension headache, vasomotor headache. Data reviewed: vital signs, nurses notes, lab test result(s), EKG, radiologic studies. 22:51 ED course: EXAMINATION: ONE VIEW CHEST XR CLINICAL INDICATION: CHEST PAIN TECHNIQUE: sp4 Frontal chest projection is submitted. Examination is limited by patient positioning and technique. COMPARISON: 02/01/2020 FINDINGS: The lungs are well inflated and clear. The heart is upper limit of normal in size. No displaced fractures identified. Left-sided venous catheters tip in SVC. IMPRESSION: No acute intrathoracic abnormalities.. ED course: EXAMINATION: MRI BRAIN WITHOUT CONTRAST CLINICAL INDICATION: STROKE ALERT TECHNIQUE: Multiplanar multisequence MR images of the brain were obtained without intravenous contrast. Unless otherwise specified, incidental findings do not require dedicated imaging followup. COMPARISON: No prior exam. FINDINGS: INTRACRANIAL: Diffusion-weighted images show no acute or early subacute infarction. No abnormal brain parenchymal signal. The ventricles are normal in size and morphology. No augmented susceptibility. There is no mass effect or midline shift. No abnormal extraaxial fluid collection. VASCULATURE: Normal signal voids in the larger intracranial arteries and dural venous sinuses. SINUSES: The paranasal sinuses and mastoid air cells are predominantly clear. BONE: The marrow signal pattern is within normal limits. IMPRESSION: Negative for acute CVA or other acute intracranial finding. . 11/24 21:05 Order name: Basic Metabolic Panel; Complete Time: 22:32 sp4 11/24 21:05 Order name: CBC with Diff; Complete Time: 22:09 sp4 11/24 21:05 Order name: LFT's; Complete Time: 22:32 sp4 11/24 21:05 Order name: Magnesium; Complete Time: 22:32 sp4 11/24 21:05 Order name: NT PRO-BNP; Complete Time: 22:32 sp4 11/24 21:05 Order name: PT-INR; Complete Time: 22:09 sp4 11/24 21:05 Order name: Troponin HS; Complete Time: 22:32 sp4 11/24 21:06 Order name: CRP; Complete Time: 22:32 sp4 11/24 21:06 Order name: TSH; Complete Time: 22:32 sp4 11/24 21:06 Order name: T4 Free; Complete Time: 22:32 sp4 11/24 21:36 Order name: Glucose, Ancillary Testing; Complete Time: 22:09 EDMS 11/24 20:58 Order name: MRI - Brain Wo Cont; Complete Time: 22:09 kmf 11/24 21:05 Order name: XRAY Chest (1 view); Complete Time: 22:09 sp4 11/24 21:05 Order name: Cardiac monitoring; Complete Time: 21:33 sp4 11/24 21:05 Order name: EKG - Nurse/Tech; Complete Time: 23:01 sp4 11/24 21:05 Order name: IV Saline Lock; Complete Time: :33 sp4 11/24 21:05 Order name: Labs collected and sent; Complete Time: 21:33 sp4 11/24 21:05 Order name: O2 Per Protocol; Complete Time: 21:33 sp4 11/24 21:05 Order name: O2 Sat Monitoring; Complete Time: 21:33 sp4 EC:25 Rate is 49 beats/min. Rhythm is regular, Sinus bradycardia. QRS [place] is Normal. OK sp4 interval is normal. QRS interval is normal. QT interval is normal. No Q waves. T waves are Normal. No ST changes noted. Clinical impression: No evidence of ischemia. Interpreted by me. Reviewed by me. Administered Medications: 21:24 Drug: fentaNYL (PF) IVP 25 mcg IVP once Route: IVP; Site: left hand; dd2 21:39 Follow up: Response: Medication administered at discharge. dd2 21:24 Drug: Ketorolac IVP 30 mg IVP once Route: IVP; Site: left hand; dd2 21:39 Follow up: Response: No adverse reaction dd2 21:24 Drug: metoCLOPramide IVP 10 mg IVP once; over 1 to 2 minutes Route: IVP; Site: left dd2 hand; 21:39 Follow up: Response: No adverse reaction dd2 21:24 Drug: diphenhydrAMINE IVP 25 mg IVP once Route: IVP; Site: left hand; dd2 21:39 Follow up: Response: No adverse reaction dd2 Point of Care Testing: Blood Glucose: 21:24 Blood Glucose: 81 mg/dL; dd2 Ranges: Critical Glucose Levels:Adult <50 mg/dl or >400 mg/dl <40 mg/dl or >180 mg/dl Disposition Summary: 11/24/24 22:36 Discharge Ordered Notes: Location: Home sp4 Problem: new sp4 Symptoms: have improved sp4 Condition: Stable sp4 Diagnosis - Episodic tension-type headache sp4 - Dizziness and giddiness sp4 Followup: sp4 - With: Private Physician - When: 7 - 10 days - Reason: Recheck today's complaints Discharge Instructions: - Discharge Summary Sheet sp4 - General Headache Without Cause sp4 Forms: - Patient Portal Instructions sp4 Prescriptions: - Fioricet 50-300-40 mg Oral capsule - take 1 capsule ORAL route every 8 hours; 30 capsule; Refills: 0, Product sp4 Selection Permitted NIH Stroke Scale - NIH Stroke Score Date: 11/24/2024 Time: 21:07 Total Score = 1 10. Dysarthria (speech clarity - read or repeat words) - 0(Normal) 11. Extinction and Inattention (visual/tactile/auditory/spatial/personal) - 0(No abnormality) 1a. Level of Consciousness (LOC) - 0(Alert) 1b. Level of Consciousness (LOC) (Month \T\ Age) - 0(Both) 1c. LOC Commands (Open \T\ Closes Eyes/Environmental Field Services Technician) - 0(Both) 2. Best Gaze (Lateral Gaze Paresis) - 0(Normal) 3. Visual Field Loss - 0(No visual loss) 4. Facial Palsy - 1(Minor Paralysis) 5a. Left Arm: Motor (10-second hold) - 0(No drift) 5b. Right Arm: Motor (10-second hold) - 0(No drift) 6a. Left Leg: Motor (5-second hold - always test supine) - 0(No drift) 6b. Right Leg: Motor (5-second hold - always test supine) - 0(No drift) 7. Limb Ataxia (finger/nose \T\ heel/benedict - test with eyes open) - 0(Absent) 8. Sensory Loss (pinprick arms/legs/face) - 0(Normal) 9. Best Language: Aphasia (description/naming/reading) - 0(No aphasia) Initials: jb4 NIH Stroke Scale - NIH Stroke Score Date: 11/24/2024 Time: 21:22 Total Score = 0 10. Dysarthria (speech clarity - read or repeat words) - 0(Normal) 11. Extinction and Inattention (visual/tactile/auditory/spatial/personal) - 0(No abnormality) 1a. Level of Consciousness (LOC) - 0(Alert) 1b. Level of Consciousness (LOC) (Month \T\ Age) - 0(Both) 1c. LOC Commands (Open \T\ Closes Eyes/Environmental Field Services Technician) - 0(Both) 2. Best Gaze (Lateral Gaze Paresis) - 0(Normal) 3. Visual Field Loss - 0(No visual loss) 4. Facial Palsy - 0(Normal) 5a. Left Arm: Motor (10-second hold) - 0(No drift) 5b. Right Arm: Motor (10-second hold) - 0(No drift) 6a. Left Leg: Motor (5-second hold - always test supine) - 0(No drift) 6b. Right Leg: Motor (5-second hold - always test supine) - 0(No drift) 7. Limb Ataxia (finger/nose \T\ heel/benedict - test with eyes open) - 0(Absent) 8. Sensory Loss (pinprick arms/legs/face) - 0(Normal) 9. Best Language: Aphasia (description/naming/reading) - 0(No aphasia) Initials: dd2 NIH Stroke Scale - NIH Stroke Score Date: 11/24/2024 Time: 21:30 Total Score = 0 10. Dysarthria (speech clarity - read or repeat words) - 0(Normal) 11. Extinction and Inattention (visual/tactile/auditory/spatial/personal) - 0(No abnormality) 1a. Level of Consciousness (LOC) - 0(Alert) 1b. Level of Consciousness (LOC) (Month \T\ Age) - 0(Both) 1c. LOC Commands (Open \T\ Closes Eyes/Environmental Field Services Technician) - 0(Both) 2. Best Gaze (Lateral Gaze Paresis) - 0(Normal) 3. Visual Field Loss - 0(No visual loss) 4. Facial Palsy - 0(Normal) 5a. Left Arm: Motor (10-second hold) - 0(No drift) 5b. Right Arm: Motor (10-second hold) - 0(No drift) 6a. Left Leg: Motor (5-second hold - always test supine) - 0(No drift) 6b. Right Leg: Motor (5-second hold - always test supine) - 0(No drift) 7. Limb Ataxia (finger/nose \T\ heel/benedict - test with eyes open) - 0(Absent) 8. Sensory Loss (pinprick arms/legs/face) - 0(Normal) 9. Best Language: Aphasia (description/naming/reading) - 0(No aphasia) Initials: sp4 Signatures: Dispatcher [employer] EDMS Scar Garcia RN RN jb4 Carrillo Harrington MD MD sp4 TONYA SANCHEZ RN RN dd2 Corrections: (The following items were deleted from the chart) 21:06 21:06 URINE DRUG SCREEN+.[email or web address] ordered. EDMS EDMS
--- NOTE | 2024-11-24 22:36 | ER ---
Nurse's Notes [facility] Name: Elizabeth Garcia Age: 54 yrs Sex: Female : 1970 Arrival Date: 11/24/2024 Time: 20:36 Bed 5 Private MD: Diagnosis: Episodic tension-type headache;Dizziness and giddiness Presentation: 11/24 21:00 Chief complaint: Patient states: I am having a Headache, dizziness, and neck pain that jb4 started at 11am that has progressively getting worse. I started having a harder time remembering things around 4pm. Pt noted to have a slight left sided droop, pt's daughter reports her smile appears to droop more on the left than normal. Coronavirus screen: At this time, the client does not indicate any symptoms associated with coronavirus-19. Ebola Screen: No symptoms or risks identified at this time. Initial Sepsis Screen: Does the patient meet any 2 criteria? No. Patient's initial sepsis screen is negative. Does the patient have a suspected source of infection? No. Patient's initial sepsis screen is negative. Risk Assessment: Do you want to hurt yourself or someone else? Patient reports no desire to harm self or others. Onset of symptoms was November 24, 2024. Transition of care: patient was not received from another setting of care. 21:00 Method Of Arrival: Ambulatory jb4 21:00 Acuity: RAZA 2 jb4 Triage Assessment: 21:03 Headache History: The patient has had previous headaches and this one is more severe jb4 than previous episodes. General: Appears in no apparent distress. uncomfortable, Behavior is calm, cooperative, appropriate for age. Pain: Complains of pain in headache, neck Pain does not radiate. Pain currently is 8 out of 10 on a pain scale. Pain began 11 am. Neuro: Level of Consciousness is awake, alert, obeys commands, Oriented to person, place, time, situation, Full function Gait is steady, Speech is normal, Facial droop on left, code stroke called.. Cardiovascular: Patient's skin is warm and dry. Respiratory: Airway is patent Respiratory effort is even, unlabored, Respiratory pattern is regular, symmetrical. Derm: Skin is intact, Skin is pink, warm \T\ dry. Musculoskeletal: Circulation, motion, and sensation intact. Range of motion: intact in all extremities. 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 - Infectious Disease History:: Denies. - Social history:: Smoking status: Patient denies any tobacco usage or history of. - Family history:: not pertinent. Screenin:11 [facility] ED Fall Risk Assessment (Adult) History of falling in the last 3 months, dd2 including since admission No falls in past 3 months (0 pts) Confusion or Disorientation No (0 pts) Intoxicated or Sedated No (0 pts) Impaired Gait No (0 pts) Mobility Assist Device Used No (0 pt) Altered Elimination No (0 pt) Score/Fall Risk Level 0 - 2 = Low Risk Oriented to surroundings, Maintained a safe environment, Educated pt \T\ family on fall prevention, incl call for assistance when getting out of bed, Assessed \T\ reinforced patient's understanding of fall precautions, Hourly rounding (assess needs \T\ fall precautionary measures) done. Abuse screen: Denies threats or abuse. Nutritional screening: No deficits noted. Tuberculosis screening: No symptoms or risk factors identified. 22:30 [place] Swallow Protocol Exclusion Criteria: Brief Cognitive Screen What is your name? ay Normal, Where are you right now? Normal, What year is it? Normal. Oral Mechanism Examination Facial Symmetry: Normal, Motion: Normal, Lip Closure: Normal, Oral Mechanism Result: Normal. 3 oz Water Swallow Challenge: Pt able to drink all water without stopping, coughing, choking or throat clearing: Yes Result: PASS. Assessment: 21:07 VAN Scoring: Arm Drift: Patients demonstrates NO arm weakness. Patient is VAN Negative. jb4 Visual Disturbance: No visual disturbance noted. Aphasia: No aphasia noted. Neglect: No neglect noted. 21:10 TNKase (Tenecteplase) Screening: Not Applicable. dd2 21:23 [place] Swallow Protocol Exclusion Criteria: Exclusion Criteria Result: Proceed Brief dd2 Cognitive Screen What is your name? Normal, Where are you right now? Normal, What year is it? Normal. Oral Mechanism Examination Facial Symmetry: Normal, Motion: Normal, Lip Closure: Normal, Oral Mechanism Result: Normal. 3 oz Water Swallow Challenge: Pt able to drink all water without stopping, coughing, choking or throat clearing: Yes Result: JARED ZEE Notified: Carrillo Harrington MD. General: Appears in no apparent distress. Behavior is calm, cooperative, appropriate for age. Pain: Complains of pain in head Pain does not radiate. Pain currently is 10 out of 10 on a pain scale. Quality of pain is described as pressure. Neuro: [place] Agitation-Sedation Scale (RASS): 0 - Alert and Calm Level of Consciousness is awake, alert, obeys commands, Oriented to person, place, time, situation, Appropriate for age Community Director are equal bilaterally Moves all extremities. Gait is steady, Speech is normal, Facial symmetry appears normal, Pupils are PERRLA, Intact Reports dizziness, headache neck pain. Cardiovascular: No deficits noted. Patient's skin is warm and dry. Respiratory: No deficits noted. Airway is patent Respiratory effort is even, unlabored, Respiratory pattern is regular, symmetrical. GI: No deficits noted. No signs and/or symptoms were reported involving the gastrointestinal system. Abdomen is non-distended, Abd is soft and non tender X 4 quads. : No deficits noted. No signs and/or symptoms were reported regarding the genitourinary system. EENT: No deficits noted. No signs and/or symptoms were reported regarding the EENT system. Derm: No deficits noted. No signs and/or symptoms reported regarding the dermatologic system. Musculoskeletal: No deficits noted. No signs and/or symptoms reported regarding the musculoskeletal system. Circulation, motion, and sensation intact. Range of motion: intact in all extremities. Vital Signs: 21:00 BP 148 / 75; Pulse 60; Resp 16; Temp 98.5(TE); Pulse Ox 100% on R/A; Weight 63.5 kg jb4 (R); Height 5 ft. 0 in. (R); 21:27 BP 131 / 63; Pulse 55; Resp 16; Pulse Ox 99% on R/A; dd2 23:44 BP 128 / 79; Pulse 62; Resp 16; Temp 98.3; Pulse Ox 98% on R/A; dd2 21:00 Body Mass Index 27.34 (63.50 kg, 152.4 cm) jb4 [place] Coma Score: 21:22 Eye Response: spontaneous(4). Motor Response: obeys commands(6). Verbal Response: dd2 oriented(5). Total: 15. 21:30 Eye Response: spontaneous(4). Motor Response: obeys commands(6). Verbal Response: sp4 oriented(5). Total: 15. 22:25 Eye Response: spontaneous(4). Motor Response: obeys commands(6). Verbal Response: sp4 oriented(5). Total: 15. NIH Stroke Scale Scores: 21:07 NIHSS Score: 1 jb4 21:22 NIHSS Score: 0 dd2 21:30 NIHSS Score: 0 sp4 ED Course: 20:39 Patient arrived in ED. jj6 20:50 Carrillo Harrington MD is Attending Physician. sp4 21:01 TONYA SANCHEZ, YVONNE is Primary Nurse. dd2 21:03 Triage completed. jb4 21:10 Arm band placed on right wrist. Patient placed in an exam room, on a stretcher, on dd2 conveyor monitor, on pulse oximetry. 21:22 Patient has correct armband on for positive identification. Bed in low position. Call dd2 light in reach. Side rails up X2. Client placed on continuous cardiac and pulse oximetry monitoring. NIBP monitoring applied. clinical research monitor on. Door closed. Noise minimized. Warm blanket given. Pillow given. Verbal reassurance given. 21:22 No provider procedures requiring assistance completed. Initial lab(s) drawn, by ED dd2 staff, sent to lab. Inserted saline lock: 22 gauge in left hand, using aseptic technique. Blood collected. Flushed with 10 mL NS. Patient maintains SpO2 saturation greater than 95% on room air. 21:30 XRAY Chest (1 view) In Process Unspecified. EDMS 21:59 MRI - Brain Wo Cont In Process Unspecified. EDMS 23:27 IV discontinued, intact, bleeding controlled, No redness/swelling at site. Pressure dd2 dressing applied. 23:44 Provided Education on: d/c education. dd2 Administered Medications: 21:24 Drug: fentaNYL (PF) IVP 25 mcg IVP once Route: IVP; Site: left hand; dd2 21:39 Follow up: Response: Medication administered at discharge. dd2 21:24 Drug: Ketorolac IVP 30 mg IVP once Route: IVP; Site: left hand; dd2 21:39 Follow up: Response: No adverse reaction dd2 21:24 Drug: metoCLOPramide IVP 10 mg IVP once; over 1 to 2 minutes Route: IVP; Site: left dd2 hand; 21:39 Follow up: Response: No adverse reaction dd2 21:24 Drug: diphenhydrAMINE IVP 25 mg IVP once Route: IVP; Site: left hand; dd2 21:39 Follow up: Response: No adverse reaction dd2 Medication: 21:11 VIS not applicable for this client. dd2 Point of Care Testing: Blood Glucose: 21:24 Blood Glucose: 81 mg/dL; dd2 Ranges: Outcome: 22:36 Discharge ordered by . sp4 23:44 Discharged to home ambulatory, dd2 23:44 Condition: improved 23:44 Discharge instructions given to patient, Instructed on discharge instructions, follow up and referral plans. medication usage, Demonstrated understanding of instructions, follow-up care, medications, Prescriptions given X 1, 23:45 Patient left the ED. dd2 NIH Stroke Scale - NIH Stroke Score Date: 11/24/2024 Time: 21:07 Total Score = 1 10. Dysarthria (speech clarity - read or repeat words) - 0(Normal) 11. Extinction and Inattention (visual/tactile/auditory/spatial/personal) - 0(No abnormality) 1a. Level of Consciousness (LOC) - 0(Alert) 1b. Level of Consciousness (LOC) (Month \T\ Age) - 0(Both) 1c. LOC Commands (Open \T\ Closes Eyes/Chancellor) - 0(Both) 2. Best Gaze (Lateral Gaze Paresis) - 0(Normal) 3. Visual Field Loss - 0(No visual loss) 4. Facial Palsy - 1(Minor Paralysis) 5a. Left Arm: Motor (10-second hold) - 0(No drift) 5b. Right Arm: Motor (10-second hold) - 0(No drift) 6a. Left Leg: Motor (5-second hold - always test supine) - 0(No drift) 6b. Right Leg: Motor (5-second hold - always test supine) - 0(No drift) 7. Limb Ataxia (finger/nose \T\ heel/benedict - test with eyes open) - 0(Absent) 8. Sensory Loss (pinprick arms/legs/face) - 0(Normal) 9. Best Language: Aphasia (description/naming/reading) - 0(No aphasia) Initials: jb4 NIH Stroke Scale - NIH Stroke Score Date: 11/24/2024 Time: 21:22 Total Score = 0 10. Dysarthria (speech clarity - read or repeat words) - 0(Normal) 11. Extinction and Inattention (visual/tactile/auditory/spatial/personal) - 0(No abnormality) 1a. Level of Consciousness (LOC) - 0(Alert) 1b. Level of Consciousness (LOC) (Month \T\ Age) - 0(Both) 1c. LOC Commands (Open \T\ Closes Eyes/Chancellor) - 0(Both) 2. Best Gaze (Lateral Gaze Paresis) - 0(Normal) 3. Visual Field Loss - 0(No visual loss) 4. Facial Palsy - 0(Normal) 5a. Left Arm: Motor (10-second hold) - 0(No drift) 5b. Right Arm: Motor (10-second hold) - 0(No drift) 6a. Left Leg: Motor (5-second hold - always test supine) - 0(No drift) 6b. Right Leg: Motor (5-second hold - always test supine) - 0(No drift) 7. Limb Ataxia (finger/nose \T\ heel/benedict - test with eyes open) - 0(Absent) 8. Sensory Loss (pinprick arms/legs/face) - 0(Normal) 9. Best Language: Aphasia (description/naming/reading) - 0(No aphasia) Initials: dd2 NIH Stroke Scale - NIH Stroke Score Date: 11/24/2024 Time: 21:30 Total Score = 0 10. Dysarthria (speech clarity - read or repeat words) - 0(Normal) 11. Extinction and Inattention (visual/tactile/auditory/spatial/personal) - 0(No abnormality) 1a. Level of Consciousness (LOC) - 0(Alert) 1b. Level of Consciousness (LOC) (Month \T\ Age) - 0(Both) 1c. LOC Commands (Open \T\ Closes Eyes/Chancellor) - 0(Both) 2. Best Gaze (Lateral Gaze Paresis) - 0(Normal) 3. Visual Field Loss - 0(No visual loss) 4. Facial Palsy - 0(Normal) 5a. Left Arm: Motor (10-second hold) - 0(No drift) 5b. Right Arm: Motor (10-second hold) - 0(No drift) 6a. Left Leg: Motor (5-second hold - always test supine) - 0(No drift) 6b. Right Leg: Motor (5-second hold - always test supine) - 0(No drift) 7. Limb Ataxia (finger/nose \T\ heel/benedict - test with eyes open) - 0(Absent) 8. Sensory Loss (pinprick arms/legs/face) - 0(Normal) 9. Best Language: Aphasia (description/naming/reading) - 0(No aphasia) Initials: sp4 Signatures: Dispatcher [employer] Scar Wood, RN RN jb4 Ele Mejias Sergey, MD MD sp4 TONYA SANCHEZ RN RN dd2 Mani Barnett RN RN ay
[2024-11-25 00:19] VITALS: BP 128/79; TEMP 98.3; O2SAT 98
--- NOTE | 2024-11-30 11:02 | EKG ---
Test Date: 2024-11-24 Test Time: 22:25:03 Line Tester: MEASUREMENT RESULTS: Intervals: Rate: 49 IN: 134 QRSD: 88 QT: 466 QTc: 420 [place]: P: 39 IN: 134 QRS: 78 T: 32 INTERPRETIVE STATEMENTS: Marked sinus bradycardia Abnormal ECG Compared to ECG 04/07/2021 12:15:15 No significant changes Electronically Signed On 11-30-24 10:54:42 FACILITY SPECIALIST by Bari Brown
== END 2024-11-24 23:45 | disposition home or self-care (01) ==
LOC: ER 20:36
DX: G44.219 Episodic tension-type headache, not intractable (principal); E11.9 Type 2 diabetes mellitus without complications; I10 Essential (primary) hypertension
CPT/HCPCS: 93005; 85025; 80048; 36415; 83735; 85610; 82947; 80076; 84443; 84484; 84439; 83880; 86140; 71045; 70551; 96375; 96374; 99285; J2765; J1200; J3010